=== PATIENT | female | born 1980 | race Caucasian/White ===

== ENCOUNTER 2022-12-31 09:54 | Inpatient (IN) ==
[2022-12-31] MEDS ORDERED: SODIUM CHLORIDE 0.9% 500 ML IV STA (10:59)
--- NOTE | 2022-12-31 11:21 | XRay Report ---
XR chest 1V portable HISTORY: Chest pain, right. hx of lung CA COMPARISON: Chest 10/24/2022. FINDINGS: Decrease in size of the now 3.2 cm right upper lobe mass. No pneumothorax. No pleural effus ions. The heart is normal in size. No new focal lung consolidations to suggest a pneumonia. No eviden ce for pulmonary edema. Right jugular Port-A-Cath terminates in the SVC. IMPRESSION: Decrease in size of the now 3.2 cm right upper lobe mass. Otherwise, no acute process within the ches t. ACT 112: Negative or not required by law. Electronically signed by: Kofi Tafoya M.D. 12/31/2022 11:20 AM
[2022-12-31 11:26] LABS: Basophils # (auto) 0.01 K/uL (0-0.2); Basophils % (auto) 0.5 %; Eosinophils # (auto) 0.01 K/uL (0-0.50); Eosinophils % (auto) 0.5 %; Hematocrit (blood only) 30.4 % (37.0-47.0); Hemoglobin 11.1 g/dl (12.0-16.0); Immature Granulocytes # (auto) 0.01 K/uL (0.01-0.20); Immature Granulocytes % (auto) 0.5 %; Lymphocytes # (auto) 0.27 K/uL (1.2-3.4); Lymphocytes % (auto) 14.5 %; Mean Corpuscular Hemoglobin 35.4 pg (25.0-34.0); Mean Corpuscular Hgb Conc 36.5 g/dL (32.0-36.0); Mean Corpuscular Volume 96.8 fL (80.0-100.0); Mean Platelet Volume 9.5 fL (9.4-12.4); Monocytes # (auto) 0.06 K/uL (0.11-0.59); Monocytes % (auto) 3.2 %; Neutrophils % (auto) 80.8 %; Platelet Count 109 K/uL (130-400); RDW Coefficient of Variation 18.2 % (11.5-14.5); Red Blood Count 3.14 M/uL (4.20-5.40); White Blood Count 1.86 K/ul (4.8-10.8)
[2022-12-31] MEDS ORDERED: ONDANSETRON INJ 2 MG/ML 2 ML VIAL IV STA (11:30)
--- NOTE | 2022-12-31 11:35 | Emergency Department Note ---
Impression & Plan Right-sided chest pain, Primary adenocarcinoma of upper lobe of right lung, Pulmonary embolism ED Provider Note INFORMANT: Patient ED PROVIDER(S): River Villavicencio MD CHIEF COMPLAINT: Chest pain PLAN: Disposition: Admitted Condition: Good Outpatient prescription management: none Referral: None MEDICAL DECISION MAKING: Patient presented with right-sided chest pain. She had a work-up initiated. Chest x-ray was negative except for her right upper lobe mass. CBC revealed the presence of pancytopenia. Her chemistry panel LFTs were unremarkable. Troponin was negative. Patient had a normal ECG. She was treated with Dilaudid and Zofran. She did feel better with this patient is high risk for pulmonary embolism given her history, family history and current malignancy. She underwent CT imaging without D-dimer testing. Patient was found to have a right lower lobe pulmonary embolism. Patient was informed. Heparin was ordered. Consultation was made with the [facility] and patient was evaluated and admitted for further management. 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 Triage Nursing notes reviewed and agree them. Vital Signs: reviewed and remarkable for no significant abnormalities Prior /Outside records reviewed: none Differential diagnosis: Cardiac ischemia, aortic dissection, pulmonary embolism, pneumothorax, pneumonia, pericarditis, myocarditis, esophageal rupture, GERD, cholecystitis, pancreatitis, musculoskeletal, as well as other pathologies. Diagnostics, as interpreted by me: ECG: Twelve-lead ECG was normal sinus rhythm at [address] elevation or depression. No PACs or PVCs. No TWI. Cardiac Monitoring: Cardiac monitoring ordered by me: The patient was placed on continuous cardiac monitoring and observed. It revealed a normal sinus rhythm at 85 beats per minute without ectopy or evidence of dysrhythmia. Medical decision rules: none Imaging studies: Chest x-ray and CT scan as above. HPI: The patient is a 42 year old female who presents to the Emergency Room with complaints of right chest pain. This started this morning and is sharp . The patient also notes the following associated symptoms, feeling feverish and chilled, SOB. The patient has taken no medication for relieving factors. Current pain is rated as 8/10. Hx of lung CA and getting Chemo and radiation. Pt denies LOC, headache, diaphoresis, visual changes, neck pain, nausea, vomiting, abdominal pain, back pain, melena, hematochezia, urinary symptoms, numbness, weakness, lymphadenopathy, rash, or other complaints. PAST MEDICAL HISTORY: See Below, Lung CA, lupus PAST SURGICAL HISTORY: See Below, port SOCIAL HISTORY: See Below, still smoking HOME MEDICATIONS: See Below ALLERGIES: See Below VITALS: See Below PHYSICAL EXAMINATION: GENERAL: Awake, alert, umcomfortable-appearing, in no distress HENT: Normocephalic, atraumatic. Oropharynx unremarkable. EYES: Normal conjunctiva. Sclera non-icteric. NECK: Inspection normal. Non-tender. Supple. No nuchal rigidity. FROM. No masses. RESPIRATORY: Clear to auscultation. No wheezes. No rales. Normal respiratory effort. CARDIAC: Normal rate. Normal rhythm. No murmurs. No rubs. Extremities warm and well perfused. Pulses equal. No JVD. GI: Soft, non-distended. No tenderness to palpation. No rebound or guarding. No masses. RECTAL: Deferred. MUSCULOSKELETAL: Atraumatic. Chest examination reveals mediport in the ANABELLA aspect. The back is symmetrical on inspection without obvious abnormality. There is no CVA tenderness to palpation. No joint edema. LOWER EXTREMITIES: Calves are equal size bilaterally and non-tender. No edema. No discoloration. NEURO: Normal sensorium. No sensory or motor deficits noted. SKIN: No rash or jaundice noted. CRITICAL CARE: I have personally spent greater than 32 minutes of critical care time in the direct management of this patient. This includes bedside care, interpretation of diagnostic studies, and testing, discussion with consultants, patient, and other required patient management activities. These minutes are in excess of all separately billable procedures. Past Med/Surg History Medical History ADHD Asthma Endometriosis of the uterus, unspecified Systemic lupus erythematosus Tobacco abuse Surgical History H/O right wrist surgery H/O tubal ligation H/O: hysterectomy History of cholecystectomy Hx of appendectomy S/P bronchoscopy Family History Mother Cancer Breast Grandmother (Maternal) Cancer Lung Social History Smoking Status: Current every day smoker Tobacco Type: Cigarettes Cigarettes Per Day: has been trying to quit; Second Hand Exposure: Yes; Do You Dip or Chew Tobacco: No; Tobacco Cessation Education Requested by Patient: Yes Hx Alcohol Use: No Hx Substance Use: No Preferred Language: Belarusian Communication Ability: Effective Visual Impairment: No Limitations Hearing Ability: Normal Double End 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 Operator Required: No Beliefs That Will Affect Care: None marital status: Single Current Living Situation: Family Current Living Situation Comment: engaged current occupational status: unemployed 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 Feels Safe at Home: Yes Safety Concerns: Feels Safe At This Time Diet: regular during the past year weight has: remained stable Assistive Devices: Denture - Upper and Oxygen - at Night Allergies Allergies Allergy/AdvReac Type Severity Reaction Status Date / Time levofloxacin [From Levaquin] Allergy Severe THROAT Verified 12/31/22 14:16 SWELLS SHUT, ITCHY Penicillins Allergy Severe Anaphylaxis Verified 12/31/22 14:16 clindamycin Allergy Intermediate Rash Verified 12/31/22 14:16 bupropion [From Wellbutrin] AdvReac Severe suicidal Verified 12/31/22 14:16 ideation ANESTHESIA AdvReac Severe FLAT LINES Uncoded 12/31/22 14:16 PLASTIC AdvReac Severe SKIN PEELS Uncoded 12/31/22 14:16 Home Meds Home Medications Medication Instructions Recorded Confirmed spironolactone 100 mg tablet 200 mg PO BID 09/24/19 12/31/22 (Aldactone) albuterol sulfate 90 mcg/actuation 2 puff inhalation Q4H PRN 09/21/22 12/31/22 aerosol inhaler (Ventolin HFA) COUGH/SOB/WHEEZING fluticasone propionate 230 2 inh inhalation BID 10/24/22 12/31/22 mcg-salmeterol 21 mcg/actuation HFA inhaler (Advair HFA) lorazepam 0.5 mg tablet 0.5 mg PO TID PRN Anxiety 10/24/22 12/31/22 dextroamphetamine-amphetamine 20 See Rx Instructions .Route .COMPLEX 10/29/22 12/31/22 mg tablet (Adderall) ibuprofen 800 mg tablet 800 mg PO TID PRN Pain 10/29/22 12/31/22 oxycodone 5 mg capsule 5 mg PO Q8H PRN Pain 11/25/22 12/31/22 meloxicam 7.5 mg tablet 7.5 mg PO DAILY PRN Muscle Spasm 12/22/22 12/31/22 chlorpromazine 25 mg tablet 25 mg PO Q6H PRN Hiccups 12/31/22 12/31/22 Previous Rx's Medication Instructions Recorded Magic Mouthwash 300 mL mouthwash 10 ml mucous membrane ACHS #300 mL 12/04/22 famotidine 10 mg tablet (Acid 10 mg PO BID #60 tabs 12/10/22 Wash Mill Operator (famotidine)) sucralfate 1 gram tablet (Carafate) 1 g PO Q6H #120 tabs 12/15/22 hydrocodone 10 mg-acetaminophen 15 ml PO Q8H PRN pain #240 mL 12/16/22 325 mg/15 mL (15 mL) oral solution benzonatate 100 mg capsule 100 mg PO TID PRN cough #60 caps 12/22/22 Results & Data (ED) Vital Signs Vital Signs - 24 hr 12/31/22 10:00 12/31/22 10:16 12/31/22 11:20 Temperature 36.5 C Temperature Source Skin Pulse Rate 94 H 92 H 95 H Pulse Rate [Apical] Pulse Rate from SpO2 Sensor Respiratory Rate 24 17 Respiratory Effort / Characteristics Non-Labored Spontaneous Respiratory Depth Normal Respiratory Pattern Regular Blood Pressure 151/89 H 104/75 Blood Pressure [Left Arm] Blood Pressure Mean 109 84 Blood Pressure Mean [Left Arm] Blood Pressure Position [Left Arm] Pulse Oximetry 99 97 Oxygen Delivery Method Room Air Room Air Sepsis New/Unexplained Change in Mental Status N/A Sepsis Action Taken by Nursing No Action Required 12/31/22 11:24 12/31/22 11:26 12/31/22 10:15 Temperature Temperature Source Pulse Rate 95 H Pulse Rate [Apical] Pulse Rate from SpO2 Sensor 95 H Respiratory Rate 13 Respiratory Effort / Characteristics Respiratory Depth Respiratory Pattern Blood Pressure Blood Pressure [Left Arm] Blood Pressure Mean Blood Pressure Mean [Left Arm] Blood Pressure Position [Left Arm] Pulse Oximetry 96 95 Oxygen Delivery Method Room Air Room Air Sepsis New/Unexplained Change in Mental Status Sepsis Action Taken by Nursing 12/31/22 10:30 12/31/22 11:00 12/31/22 11:27 Temperature Temperature Source Pulse Rate 98 H 98 H 88 Pulse Rate [Apical] Pulse Rate from SpO2 Sensor 90 97 H 91 H Respiratory Rate 14 10 L 21 Respiratory Effort / Characteristics Respiratory Depth Respiratory Pattern Blood Pressure Blood Pressure [Left Arm] Blood Pressure Mean Blood Pressure Mean [Left Arm] Blood Pressure Position [Left Arm] Pulse Oximetry 98 96 97 Oxygen Delivery Method Sepsis New/Unexplained Change in Mental Status Sepsis Action Taken by Nursing 12/31/22 11:27 12/31/22 11:30 12/31/22 11:30 Temperature Temperature Source Pulse Rate 80 Pulse Rate [Apical] Pulse Rate from SpO2 Sensor 88 Respiratory Rate 16 Respiratory Effort / Characteristics Respiratory Depth Respiratory Pattern Blood Pressure 105/87 113/83 Blood Pressure [Left Arm] Blood Pressure Mean 96 88 Blood Pressure Mean [Left Arm] Blood Pressure Position [Left Arm] Pulse Oximetry 95 Oxygen Delivery Method Sepsis New/Unexplained Change in Mental Status Sepsis Action Taken by Nursing 12/31/22 12:00 12/31/22 12:00 12/31/22 12:48 Temperature Temperature Source Pulse Rate 83 Pulse Rate [Apical] 88 Pulse Rate from SpO2 Sensor 81 Respiratory Rate 17 14 Respiratory Effort / Characteristics Non-Labored Spontaneous Respiratory Depth Normal Respiratory Pattern Regular Blood Pressure 116/85 Blood Pressure [Left Arm] 108/72 Blood Pressure Mean 95 Blood Pressure Mean [Left Arm] 84 Blood Pressure Position [Left Arm] Semi-fowlers Pulse Oximetry 96 95 Oxygen Delivery Method Room Air Sepsis New/Unexplained Change in Mental Status Sepsis Action Taken by Nursing Laboratory Data 12/31/22 10:40 12/31/22 10:40 Lab Results 12/31/22 12/31/22 12/31/22 Range/Units 10:40 10:40 14:00 WBC 1.86 L (4.8-10.8) K/ul RBC 3.14 L (4.20-5.40) M/uL Hgb 11.1 L (12.0-16.0) g/dl Hct 30.4 L (37.0-47.0) % MCV 96.8 (80.0-100.0) fL MCH 35.4 H (25.0-34.0) pg MCHC 36.5 H (32.0-36.0) g/dL RDW Std Deviation 61.0 H (36.4-46.3) fL RDW Coeff of Saritha 18.2 H (11.5-14.5) % Plt Count 109 L (130-400) K/uL MPV 9.5 (9.4-12.4) fL Immature Gran % (Auto) 0.5 % Neut % (Auto) 80.8 % Lymph % (Auto) 14.5 % [place] % (Auto) 3.2 % Eos % (Auto) 0.5 % Baso % (Auto) 0.5 % Neut # (Auto) 1.50 (1.40-6.50) K/uL Lymph # (Auto) 0.27 L (1.2-3.4) K/uL [place] # (Auto) 0.06 L (0.11-0.59) K/uL Eos # (Auto) 0.01 (0-0.50) K/uL Baso # (Auto) 0.01 (0-0.2) K/uL Immature Gran # (Auto) 0.01 (0.01-0.20) K/uL PT 10.0 (9.0-12.0) Seconds INR 0.9 (0.9-1.1) APTT 23.5 (21.0-31.0) Seconds PTT Ratio 0.8 Sodium 137 (136-145) mmol/L Potassium 4.1 (3.5-5.1) mmol/L Chloride 107 (98-107) mmol/L Carbon Dioxide 25 (21-32) mmol/L Anion Gap 5 (3-11) BUN 17 (6-23) mg/dl Creatinine 0.79 (0.6-1.2) mg/dl Est Cr Clr Drug Dosing 100.7 ml/min Est GFR ( Amer) 105.5 ml/min Est GFR (Non-Af Amer) 91.0 ml/min BUN/Creatinine Ratio 21.5 H (10-20) Glucose 122 H (70-99(Fasting)) mg/dl Calcium 9.0 (8.6-10.3) mg/dl Total Bilirubin 0.6 (0.2-1.0) mg/dl AST 12 L (13-39) U/L ALT 12 (7-52) U/L Alkaline Phosphatase 98 (34-104) U/L Troponin I High Sens < 2.3 (0-14) pg/ml Total Protein 6.7 (6.0-8.3) gm/dl Albumin 3.7 (3.4-5.0) gm/dl Globulin 3.0 (2.5-4.0) gm/dl Albumin/Globulin Ratio 1.2 (0.9-2) Lipase 21 (11-82) U/L SARS-CoV-2, RNA, NAAT (NEGATIVE) 12/31/22 Range/Units 14:07 WBC (4.8-10.8) K/ul RBC (4.20-5.40) M/uL Hgb (12.0-16.0) g/dl Hct (37.0-47.0) % MCV (80.0-100.0) fL MCH (25.0-34.0) pg MCHC (32.0-36.0) g/dL RDW Std Deviation (36.4-46.3) fL RDW Coeff of Saritha (11.5-14.5) % Plt Count (130-400) K/uL MPV (9.4-12.4) fL Immature Gran % (Auto) % Neut % (Auto) % Lymph % (Auto) % [place] % (Auto) % Eos % (Auto) % Baso % (Auto) % Neut # (Auto) (1.40-6.50) K/uL Lymph # (Auto) (1.2-3.4) K/uL [place] # (Auto) (0.11-0.59) K/uL Eos # (Auto) (0-0.50) K/uL Baso # (Auto) (0-0.2) K/uL Immature Gran # (Auto) (0.01-0.20) K/uL PT (9.0-12.0) Seconds INR (0.9-1.1) APTT (21.0-31.0) Seconds PTT Ratio Sodium (136-145) mmol/L Potassium (3.5-5.1) mmol/L Chloride (98-107) mmol/L Carbon Dioxide (21-32) mmol/L Anion Gap (3-11) BUN (6-23) mg/dl Creatinine (0.6-1.2) mg/dl Est Cr Clr Drug Dosing ml/min Est GFR ( Amer) ml/min Est GFR (Non-Af Amer) ml/min BUN/Creatinine Ratio (10-20) Glucose (70-99(Fasting)) mg/dl Calcium (8.6-10.3) mg/dl Total Bilirubin (0.2-1.0) mg/dl AST (13-39) U/L ALT (7-52) U/L Alkaline Phosphatase (34-104) U/L Troponin I High Sens (0-14) pg/ml Total Protein (6.0-8.3) gm/dl Albumin (3.4-5.0) gm/dl Globulin (2.5-4.0) gm/dl Albumin/Globulin Ratio (0.9-2) Lipase (11-82) U/L SARS-CoV-2, RNA, NAAT NEGATIVE (NEGATIVE) Administered Medications Fluticasone/Vilanterol (Fluticasone/Vilanterol 200/25mcg 14 Puffs/Inhaler) 1 puffs INH DAILY [facility]; Protocol Stop: 01/30/23 16:59 Last Admin: 12/31/22 18:10 Dose: 1 puffs Documented By: BILLY Heparin Sodium/Dextrose (Heparin Sodium/Dextrose) 25,000 units in 500 mls @ 17 mls/hr IV .Q24H [facility]; Protocol Stop: 01/30/23 14:14 Last Admin: 12/31/22 15:08 Dose: 850 units/hr, 17 mls/hr Documented By: JESU Co-signed By: LIZ Spironolactone (Spironolactone 100 Mg Tab) 200 mg PO BID17 [facility] Stop: 01/30/23 16:59 Last Admin: 12/31/22 18:10 Dose: 200 mg Documented By: BILLY Sucralfate (Sucralfate 1 Gm Tab) 1 gm PO Q6H [facility] Stop: 01/30/23 16:59 Last Admin: 12/31/22 18:10 Dose: 1 gm Documented By: BILLY Discontinued Medications Heparin Sodium (Porcine) (Heparin Sod (Porcine) 1000 Unit/Ml) 4,000 units IV NOW ONE Stop: 12/31/22 14:31 Last Admin: 12/31/22 15:07 Dose: 4,000 units Documented By: JESU Co-signed By: LIZ Hydromorphone HCl (Hydromorphone Inj 0.5 Mg/0.5 Ml Syr) 0.5 mg IV Q15M PRN PRN Reason: Pain Stop: 01/14/23 11:29 Last Admin: 12/31/22 15:24 Dose: 0.5 mg Documented By: Admin: 12/31/22 13:52 Dose: 0.5 mg Documented By: Admin: 12/31/22 11:36 Dose: 0.5 mg Documented By: JESU Sodium Chloride (Nss) 500 mls @ 999 mls/hr IV .Q31M STA Stop: 12/31/22 11:29 Last Infusion: 12/31/22 12:25 Dose: 0 mls/hr Documented By: Admin: 12/31/22 11:38 Dose: 999 mls/hr Documented By: JESU Ioversol (Optiray 320 125ml) 119 ml IV ONCE ONE Stop: 12/31/22 12:36 Last Admin: 12/31/22 12:35 Dose: 119 ml Documented By: ALISA Ondansetron HCl (Ondansetron Inj 2 Mg/Ml 2 Ml Vial) 4 mg IV NOW STA Stop: 12/31/22 11:31 Last Admin: 12/31/22 11:36 Dose: 4 mg Documented By: JESU Oxycodone HCl (Oxycodone Hcl Ir 5 Mg Tab (Immediate Release)) 5 mg PO Q8H PRN PRN Reason: Pain Stop: 01/14/23 16:48 Last Admin: 12/31/22 17:14 Dose: 5 mg Documented By: MP Imaging Data Radiologist's Impression: Chest X-Ray 12/31/22 10:59 XR chest 1V portable HISTORY: Chest pain, right. hx of lung CA COMPARISON: Chest 10/24/2022. FINDINGS: Decrease in size of the now 3.2 cm right upper lobe mass. No pneumothorax. No pleural effusions. The heart is normal in size. No new focal lung consolidations to suggest a pneumonia. No evidence for pulmonary edema. Right jugular Port-A-Cath terminates in the SVC. IMPRESSION: Decrease in size of the now 3.2 cm right upper lobe mass. Otherwise, no acute process within the chest. ACT 112: Negative or not required by law. Electronically signed by: Kofi Tafoya M.D. 12/31/2022 11:20 AM Chest CTA 12/31/22 11:30 CHEST CTA for PULMONARY ARTERIES CT DOSE: HISTORY: RIght chest pain, hx of CA, ?PE TECHNIQUE: Multiaxial CT images of the chest were performed following the intravenous administration of contrast to evaluate the pulmonary arteries. Maximal intensity projection images were also obtained. A dose lowering technique was utilized adhering to the principles of ALARA. COMPARISON STUDY: Chest CTA 10/24/2022. FINDINGS: Normal caliber thoracic aorta with no evidence for a dissection. Filling defects noted within the right lateral basal subsegmental pulmonary arteries consistent with right lower lobe pulmonary emboli. The main pulmonary arteries are patent. No evidence for right-sided heart strain. The heart is normal in size. No pleural or pericardial effusions. Mild circumferential thic kening within the upper esophagus. Slight decrease in size in the right paratracheal and right hilar lymphadenopathy. The right paratracheal lymphadenopathy appears partially necrotic. This could be due to posttreatment changes. No new/progressive lymphadenopathy within the chest. Limited views of t he upper abdomen demonstrate a normal liver, spleen, and adrenal glands. Right jugular Port-A-Cath terminates in the distal SVC. No suspicious lytic or blastic osseous lesions. Mild emphysema. No pneumothorax. The central airways are patent. No new focal lung consolidations to suggest a pneumonia. No evidence for pulmonary edema. Slight decrease in size in the now 3 cm spiculated right upper lobe mass. IMPRESSION: 1. Right lower lobe subsegmental pulmonary emboli. 2. Slight improvement in the spiculated right upper lobe mass and right paratracheal/hilar lymphadenopathy. 3. Mild emphysema. ACT 112: Negative or not required by law. Electronically signed by: Kofi Tafoya M.D. 12/31/2022 1:26 PM Discharge Plan Visit Data Chief Complaint: Shortness of Breath/Dyspnea Stated Complaint: SOB, PAIN WITH SOB,DIZZY ED Provider: River Villavicencio Discharge Problem: Right-sided chest pain, Primary adenocarcinoma of upper lobe of right lung, Pulmonary embolism Patient Disposition: Admitted As Inpatient Discharge Instructions Interventions: ED Discharge Assessment Last Done: 12/31/22 16:32
[2022-12-31] MEDS: HYDROmorphone INJ 0.5 MG/0.5 ML SYR IV PRN ×4 (11:36→20:42)
[2022-12-31 11:42] LABS: Alanine Aminotransferase 12 U/L (7-52); Albumin Globulin Ratio 1.2 (0.9-2); Albumin Level 3.7 gm/dl (3.4-5.0); Alkaline Phosphatase 98 U/L (34-104); Anion Gap 5 (3-11); Aspartate Aminotransferase 12 U/L (13-39); BUN Creatinine Ratio 21.5 (10-20); Bilirubin,Total 0.6 mg/dl (0.2-1.0); Blood Urea Nitrogen 17 mg/dl (6-23); Carbon Dioxide 25 mmol/L (21-32); Chloride 107 mmol/L (98-107); Creatinine Clr Calc Pharmacy 100.7 ml/min; Est GFR (African American) 105.5 ml/min; Glucose 122 mg/dl (70-99(Fasting)); Lipase 21 U/L (11-82); Potassium 4.1 mmol/L (3.5-5.1); Sodium 137 mmol/L (136-145); Total Protein 6.7 gm/dl (6.0-8.3)
[2022-12-31 11:46] LABS: Troponin I High Sensitivity < 2.3 pg/ml (0-14)
[2022-12-31] MEDS ORDERED: OPTIRAY 320 125ml IV ONE (12:35)
--- NOTE | 2022-12-31 13:28 | CT Scan Report ---
CHEST CTA for PULMONARY ARTERIES CT DOSE: HISTORY: RIght chest pain, hx of CA, ?PE TECHNIQUE: Multiaxial CT images of the chest were performed following the intravenous administration of contrast to evaluate the pulmonary arteries. Maximal intensity projection images were also obtaine d. A dose lowering technique was utilized adhering to the principles of ALARA. COMPARISON STUDY: Chest CTA 10/24/2022. FINDINGS: Normal caliber thoracic aorta with no evidence for a dissection. Filling defects noted with in the right lateral basal subsegmental pulmonary arteries consistent with right lower lobe pulmonary emboli. The main pulmonary arteries are patent. No evidence for right-sided heart strain. The heart is normal in size. No pleural or pericardial effusions. Mild circumferential thickening within the up per esophagus. Slight decrease in size in the right paratracheal and right hilar lymphadenopathy. The right paratracheal lymphadenopathy appears partially necrotic. This could be due to posttreatment ch anges. No new/progressive lymphadenopathy within the chest. Limited views of the upper abdomen demons trate a normal liver, spleen, and adrenal glands. Right jugular Port-A-Cath terminates in the distal SVC. No suspicious lytic or blastic osseous lesions. Mild emphysema. No pneumothorax. The central air ways are patent. No new focal lung consolidations to suggest a pneumonia. No evidence for pulmonary e marce. Slight decrease in size in the now 3 cm spiculated right upper lobe mass. IMPRESSION: 1. Right lower lobe subsegmental pulmonary emboli. 2. Slight improvement in the spiculated right upper lobe mass and right paratracheal/hilar lymphadeno sebastian. 3. Mild emphysema. ACT 112: Negative or not required by law. Electronically signed by: Kofi Tafoya M.D. 12/31/2022 1:26 PM
[2022-12-31] MEDS ORDERED: Heparin IV Adult Wt-Based Low-Dose WITH Bolus Protocol IV STA (13:49)
[2022-12-31] MEDS ORDERED: HEPARIN SOD (PORCINE) 1000 UNIT/ML IV ONE ×3 (14:04→23:00)
--- NOTE | 2022-12-31 14:06 | History & Physical Report ---
Date of Service December 31, 2022 Assessment & Plan (1) Right-sided chest pain: (2) Pulmonary embolism: (3) Primary adenocarcinoma of upper lobe of right lung: Plan This is a 42-year-old female who has a significant past medical history of lupus, bipolar disorder, ADHD, fibromyalgia, Raynaud's disease, pseudocholinesterase deficiency, PCOS and primary adenocarcinoma of right lung who presents to ED secondary to right-sided chest pain. Right sided chest pain Pulmonary Embolism - right lower lobe admit to PCU ---chest CTA:1. Right lower lobe subsegmental pulmonary emboli.2. Slight improvement in the spiculated right upper lobe mass and right paratracheal/hilar lymphadenopathy.3. Mild emphysema. Continue IV heparin obtain echocardiogram monitor cbc, can consider transition to lovenox or oral anticoagulation in a.m. incentive spirometry oxycodone for pain, will add morphine for severe pain Dysphagia CT shows mild thickening of upper esophagus possibly related to radiation pt on cocktail of magic swizzle, carafate, pepcid and thorazine will consult speech for swallow eval Primary [place] of [facility] follows Dr. Charlton or heme/onc and Dr. Chaka Charlton of Rad/onc on pac/carbo, last tx 12/21 Pancytopenia related to chemotherapy follow cbc, monitor plt Constipation add Senna S BID, encourage fluid DVT ppx: IV Heparin Dispo tele PCP: Lou FULL CODE Pt was seen and examined in collaboration with Dr. Fontaine, please see addendum A total of 75 was spent coordinating, documenting, and providing care for this patient excluding time spent in the performance of separately billed services. This included personally viewing all current laboratories and imaging studies, medication reconciliation, outpatient chart review, and discussion with specialists. The chart was completed utilizing [employer] Speech voice recognition software. Grammatical errors, random word insertions, pronoun errors, and incomplete sentences are an occasional consequence of this system due to software limitations, ambient noise, and hardware issues. Any formal questions or concerns about the content, text, or information contained within the body of this dictation should be directly addressed to the provider for clarification. History of Present Illness Chief Complaint: R sided chest pain. Primary Care Provider: Josue Blake MD This is a 42-year-old female who has a significant past medical history of lupus, bipolar disorder, ADHD, fibromyalgia, Raynaud's disease, pseudocholinesterase deficiency, PCOS and primary adenocarcinoma of right lung who presents to ED secondary to right-sided chest pain. She follows [facility] oncology. She is currently receiving chemo and radiation treatment. She is receiving weekly paclitaxel which started on 11/19/2022. She is also on carboplatin. Her last treatment was on 12/23/2022. She is getting radiation through 01/16. She also has lupus but has not been on medication for over 1 year. She smokes daily, 4 cigarettes. She has been cutting down. She did smoke 1.5ppd and down to 4 cigarettes. She complains of right sided chest pain that is stabbing to her back. She also complains of dizziness and shortness of breath. She did have a fever last night. Denies calf pain and leg swelling. On Thursday she had nausea and vomiting but this has since resolved. She is chronically constipated. She uses sennokot for this. Her Last BM was over the weekend. She denies any bleeding problems. She does complain of daily nose bleeds, "clots in nose." When she blows nose she gets bright red clots. She also complains of di fficulty swallowing solids/liquids and she is concerned in may be related to radiation. They tried thorazine which is helping with hiccups. Surgical hx: Hx of cholecystectomy, hysterectomy, appendectomy, oopherectomy, hand surgery. Allergies Allergy/AdvReac Type Severity Reaction Status Date / Time levofloxacin [From Levaquin] Allergy Severe THROAT Verified 12/31/22 14:16 SWELLS SHUT, ITCHY Penicillins Allergy Severe Anaphylaxis Verified 12/31/22 14:16 clindamycin Allergy Intermediate Rash Verified 12/31/22 14:16 bupropion [From Wellbutrin] AdvReac Severe suicidal Verified 12/31/22 14:16 ideation ANESTHESIA AdvReac Severe FLAT LINES Uncoded 12/31/22 14:16 PLASTIC AdvReac Severe SKIN PEELS Uncoded 12/31/22 14:16 Home Medications Medication Instructions Recorded Confirmed Type spironolactone 100 mg tablet 200 mg PO BID 09/24/19 12/31/22 History (Aldactone) albuterol sulfate 90 mcg/actuation 2 puff inhalation Q4H PRN 09/21/22 12/31/22 History aerosol inhaler (Ventolin HFA) COUGH/SOB/WHEEZING fluticasone propionate 230 2 inh inhalation BID 10/24/22 12/31/22 History mcg-salmeterol 21 mcg/actuation HFA inhaler (Advair HFA) lorazepam 0.5 mg tablet 0.5 mg PO TID PRN Anxiety 10/24/22 12/31/22 History dextroamphetamine-amphetamine 20 See Rx Instructions .Route .COMPLEX 10/29/22 12/31/22 History mg tablet (Adderall) ibuprofen 800 mg tablet 800 mg PO TID PRN Pain 10/29/22 12/31/22 History oxycodone 5 mg capsule 5 mg PO Q8H PRN Pain 11/25/22 12/31/22 History Magic Mouthwash 300 mL mouthwash 10 ml mucous membrane ACHS #300 mL 12/04/22 12/31/22 Rx famotidine 10 mg tablet (Acid 10 mg PO BID #60 tabs 12/10/22 12/31/22 Rx Supervisor Plasma (famotidine)) sucralfate 1 gram tablet (Carafate) 1 g PO Q6H #120 tabs 12/15/22 12/31/22 Rx hydrocodone 10 mg-acetaminophen 15 ml PO Q8H PRN pain #240 mL 12/16/22 12/31/22 Rx 325 mg/15 mL (15 mL) oral solution benzonatate 100 mg capsule 100 mg PO TID PRN cough #60 caps 12/22/22 12/31/22 Rx meloxicam 7.5 mg tablet 7.5 mg PO DAILY PRN Muscle Spasm 12/22/22 12/31/22 History chlorpromazine 25 mg tablet 25 mg PO Q6H PRN Hiccups 12/31/22 12/31/22 History Past Med/Surg History Medical History ADHD Asthma Endometriosis of the uterus, unspecified Systemic lupus erythematosus Tobacco abuse Surgical History H/O right wrist surgery H/O tubal ligation H/O: hysterectomy History of cholecystectomy Hx of appendectomy S/P bronchoscopy Family History Mother Cancer Breast Grandmother (Maternal) Cancer Lung Social History Smoking Status: Current every day smoker Tobacco Type: Cigarettes Cigarettes Per Day: has been trying to quit; Second Hand Exposure: Yes; Hx Alcohol Use: No Hx Substance Use: No Preferred Language: [place] Communication Ability: Effective Visual Impairment: No Limitations Hearing Ability: Normal Beliefs That Will Affect Care: None marital status: Single Current Living Situation: Significant Other Current Living Situation Comment: engaged current occupational status: unemployed 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 Fontaine, addendum for physical exam findings. Results & Data Results & Data Vital Signs (Past 12 Hours) Vital Signs Temp Pulse Pulse Resp BP BP Pulse Ox 12/31/22 12:48 88 14 108/72 95 12/31/22 12:00 83 17 96 12/31/22 12:00 116/85 12/31/22 11:30 80 16 95 12/31/22 11:30 113/83 12/31/22 11:27 105/87 12/31/22 11:27 88 21 97 12/31/22 11:00 98 H 10 L 96 12/31/22 10:30 98 H 14 98 12/31/22 10:15 95 H 13 95 12/31/22 11:26 12/31/22 11:24 96 12/31/22 11:20 95 H 17 104/75 97 12/31/22 10:16 92 H 12/31/22 10:00 36.5 C 94 H 24 151/89 H 99 O2 Del Method 12/31/22 12:48 Room Air 12/31/22 12:00 12/31/22 12:00 12/31/22 11:30 12/31/22 11:30 12/31/22 11:27 12/31/22 11:27 12/31/22 11:00 12/31/22 10:30 12/31/22 10:15 12/31/22 11:26 Room Air 12/31/22 11:24 Room Air 12/31/22 11:20 Room Air 12/31/22 10:16 12/31/22 10:00 Room Air Diagnostic Findings Chest X-Ray 12/31/22 10:59 XR chest 1V portable HISTORY: Chest pain, right. hx of lung CA COMPARISON: Chest 10/24/2022. FINDINGS: Decrease in size of the now 3.2 cm right upper lobe mass. No pneumothorax. No pleural effusions. The heart is normal in size. No new focal lung consolidations to suggest a pneumonia. No evidence for pulmonary edema. Right jugular Port-A-Cath terminates in the SVC. IMPRESSION: Decrease in size of the now 3.2 cm right upper lobe mass. Otherwise, no acute process within the chest. ACT 112: Negative or not required by law. Electronically signed by: Kofi Tafoya M.D. 12/31/2022 11:20 AM Chest CTA 12/31/22 11:30 CHEST CTA for PULMONARY ARTERIES CT DOSE: HISTORY: RIght chest pain, hx of CA, ?PE TECHNIQUE: Multiaxial CT images of the chest were performed following the intravenous administration of contrast to evaluate the pulmonary arteries. Maximal intensity projection images were also obtained. A dose lowering technique was utilized adhering to the principles of ALARA. COMPARISON STUDY: Chest CTA 10/24/2022. FINDINGS: Normal caliber thoracic aorta with no evidence for a dissection. Filling defects noted within the right lateral basal subsegmental pulmonary arteries consistent with right lower lobe pulmonary emboli. The main pulmonary arteries are patent. No evidence for right-sided heart strain. The heart is normal in size. No pleural or pericardial effusions. Mild circumferential thickening within the upper esophagus. Slight decrease in size in the right paratracheal and right hilar lymphadenopathy. The right paratracheal lymphadenopathy appears partially necrotic. This could be due to posttreatment changes. No new/progressive lymphadenopathy within the chest. Limited views of the upper abdomen demonstrate a normal liver, spleen, and adrenal glands. Right jugular Port-A-Cath terminates in the distal SVC. No suspicious lytic or blastic osseous lesions. Mild emphysema. No pneumothorax. The central airways are patent. No new focal lung consolidations to suggest a pneumonia. No evidence for pulmonary edema. Slight decrease in size in the now 3 cm spiculated right upper lobe mass. IMPRESSION: 1. Right lower lobe subsegmental pulmonary emboli. 2. Slight improvement in the spiculated right upper lobe mass and right paratracheal/hilar lymphadenopathy. 3. Mild emphysema. ACT 112: Negative or not required by law. Electronically signed by: Kofi Tafoya M.D. 12/31/2022 1:26 PM Medications Administered Medication List Hydromorphone HCl (Hydromorphone Inj 0.5 Mg/0.5 Ml Syr) 0.5 mg IV Q15M PRN PRN Reason: Pain Stop: 01/14/23 11:29 Last Admin: 12/31/22 13:52 Dose: 0.5 mg Documented By: Admin: 12/31/22 11:36 Dose: 0.5 mg Documented By: JESU Discontinued Medications Sodium Chloride (Nss) 500 mls @ 999 mls/hr IV .Q31M STA Stop: 12/31/22 11:29 Last Infusion: 12/31/22 12:25 Dose: 0 mls/hr Documented By: Admin: 12/31/22 11:38 Dose: 999 mls/hr Documented By: JESU Ioversol (Optiray 320 125ml) 119 ml IV ONCE ONE Stop: 12/31/22 12:36 Last Admin: 12/31/22 12:35 Dose: 119 ml Documented By: ALISA Ondansetron HCl (Ondansetron Inj 2 Mg/Ml 2 Ml Vial) 4 mg IV NOW STA Stop: 12/31/22 11:31 Last Admin: 12/31/22 11:36 Dose: 4 mg Documented By: JESU ECG Rate (beats per minute): 92 Rhythm: normal sinus Additional Comments: qtc 447ms, viewed by me COVID-19 Results Results COVID-19 Adm Lab Results: RBC 3.14 M/uL (4.20-5.40) L 12/31/22 WBC 1.86 K/ul (4.8-10.8) L 12/31/22 Hgb 11.1 g/dl (12.0-16.0) L 12/31/22 Hct 30.4 % (37.0-47.0) L 12/31/22 Plt Count 109 K/uL (130-400) L 12/31/22 Neutrophils (%) (Auto) 80.8 % 12/31/22 Lymphocytes (%) (Auto) 14.5 % 12/31/22 Monocytes # (Auto) 0.06 K/uL (0.11-0.59) L 12/31/22 Eosinophils # (Auto) 0.01 K/uL (0-0.50) 12/31/22 Immature Granulocyte % (Auto) 0.5 % 12/31/22 Neutrophils # (Auto) 1.50 K/uL (1.40-6.50) 12/31/22 Lymphocytes # (Auto) 0.27 K/uL (1.2-3.4) L 12/31/22 Monocytes # (Auto) 0.06 K/uL (0.11-0.59) L 12/31/22 Eosinophils # (Auto) 0.01 K/uL (0-0.50) 12/31/22 Basophils # (Auto) 0.01 K/uL (0-0.2) 12/31/22 Immature Granulocyte # (Auto) 0.01 K/uL (0.01-0.20) 3 Na 137 mmol/L (136-145) 12/31/22 K 4.1 mmol/L (3.5-5.1) 12/31/22 Cl 107 mmol/L (98-107) 12/31/22 CO2 25 mmol/L (21-32) 12/31/22 Anion Gap 5 (3-11) 12/31/22 BUN 17 mg/dl (6-23) 12/31/22 Creatinine 0.79 mg/dl (0.6-1.2) 12/31/22 BUN/Creatinine Ratio 21.5 (10-20) H 12/31/22 Glucose Level 122 mg/dl (70-99(Fasting)) H 12/31/22 Ca 9.0 mg/dl (8.6-10.3) 12/31/22 Total Bilirubin 0.6 mg/dl (0.2-1.0) 12/31/22 AST/SGOT 12 U/L (13-39) L 12/31/22 ALT/SGPT 12 U/L (7-52) 12/31/22 Alkaline Phosphatase 98 U/L (34-104) 12/31/22 Total Protein 6.7 gm/dl (6.0-8.3) 12/31/22 Albumin 3.7 gm/dl (3.4-5.0) 12/31/22 Globulin 3.0 gm/dl (2.5-4.0) 12/31/22 Albumin/Globulin Ratio 1.2 (0.9-2) 12/31/22 PTT 23.5 Seconds (21.0-31.0) 12/31/22 INR 0.9 (0.9-1.1) 12/31/22 SARS-CoV-2, RNA, NAAT NEGATIVE (NEGATIVE) 12/31/22 Chest X-Ray 12/31/22 Code Status & VTE Plan Code Status FULL CODE Supervising Physician Co-Signing Physician Notes Patient is a 42-year-old female with history of lupus, fibromyalgia, lung adenocarcinoma who is currently on chemotherapy, radiation and other medical problems presents with history of right-sided pleuritic, stabbing chest pain associated with some dyspnea on exertion and dizziness. Also admits to have fever last night. She also reports having dysphagia predominantly to solids which she attributes to radiation therapy. Please review HPI for complete details of presentation. Patient is saturating well on room air. CTA chest suggestive of right lower lobe subsegmental pulmonary emboli. Physical Exam: Vitals signs as noted above General Appearance:Obese, no apparent distress Head: normocephalic, Atraumatic Eyes: normal inspection, EOMI Neck: supple, Trachea midline Respiratory/Chest: Decreased breath sounds, CTA, No accessory muscle use Cardiovascular: S1, S2, No murmur Abdomen/GI:Soft, Non tender, Bowel sounds present Extremities/Musculoskeletal:normal inspection, no edema Neurologic/Psych:AAOX3, grossly no focal neurological deficits Skin: normal color, warm Acute pulmonary emboli Pleuritic pain secondary to above Pancytopenia secondary to chemotherapy Dysphagia likely secondary to radiation therapy Chronic respiratory failure--on supplemental oxygen 2 L at bedtime Agree with continuing IV heparin Continue supplemental oxygen at bedtime Incentive spirometer Check echo Speech therapy consulted Monitor CBC Bowel regimen to prevent constipation I personally reviewed the record. Patient is interviewed and examined at bedside. Patient's care is coordinated with Megha Griffiths PA-C. Please refer to the documentation above for details of patient's presentation and for discussion of other issues.
[2022-12-31] MEDS ORDERED: HEPARIN SODIUM/DEXTROSE 25,000 UNITS/500 ML BAG IV SCH (14:15)
[2022-12-31 14:59] LABS: INR 0.9 (0.9-1.1); Partial Thromboplastin Ratio 0.8; Partial Thromboplastin Time 23.5 Seconds (21.0-31.0)
[2022-12-31] MEDS ORDERED: MAGNESIUM HYDROXIDE SUSP 30 ML UDC PO PRN (16:37)
[2022-12-31] MEDS ORDERED: ALBUTEROL HFA 8 GM INHALER INH PRN (16:37)
[2022-12-31] MEDS ORDERED: ALUMINUM/MAGNESIUM SUSP 30 ML UDC PO PRN (16:37)
[2022-12-31] MEDS ORDERED: POLYETHYLENE (MIRALAX) 17 GM PACK PO PRN (16:37)
[2022-12-31] MEDS ORDERED: ACETAMINOPHEN 325 MG TAB PO PRN (16:37)
[2022-12-31] MEDS ORDERED: oxyCODONE HCL IR 5 MG TAB (IMMEDIATE RELEASE) PO PRN ×3 (16:49→18:46)
[2022-12-31] MEDS: SUCRALFATE 1 GM TAB PO SCH ×2 (18:10→22:58)
[2022-12-31] MEDS: FLUTICASONE/VILANTEROL 200/25MCG 14 PUFFS/INHALER INH SCH (18:10)
[2022-12-31] MEDS: SPIRONOLACTONE 100 MG TAB PO SCH (18:10)
[2022-12-31] MEDS ORDERED: ACETAMINOPHEN/HYDROcodone ELIX 15 ML/CUP PO PRN ×2 (18:47→18:49)
[2022-12-31] MEDS: NON-FORMULARY MEDICATION (Magic Mouthwash 300 mL mouthwash) mucous membrane SCH ×2 (19:21→23:00)
[2022-12-31] MEDS: LORazepam 0.5 MG TAB PO PRN (20:21)
[2022-12-31] MEDS: NICOTINE 14 MG/24 HR PATCH TD SCH ×2 (20:22→20:48)
[2022-12-31] MEDS: FAMOTIDINE 10 MG TABLET PO SCH (20:45)
[2022-12-31] MEDS: DOCUSATE SODIUM/SENNA 50/8.6MG TAB PO SCH (20:45)
[2022-12-31 22:21] LABS: Partial Thromboplastin Time 28.3 Seconds (21.0-31.0)
[2022-12-31] MEDS: chlorproMAZINE HCL 25 MG TAB PO PRN (22:58)
[2022-12-31] MEDS: MAGIC MOUTHWASH PO SCH ×2 (23:27→23:33)
[2023-01-01] MEDS: oxyCODONE HCL IR 5 MG TAB (IMMEDIATE RELEASE) PO PRN ×3 (01:22→20:21)
[2023-01-01] MEDS: HYDROmorphone INJ 0.5 MG/0.5 ML SYR IV PRN ×4 (03:00→21:13)
[2023-01-01] MEDS: SUCRALFATE 1 GM TAB PO SCH ×4 (05:42→22:57)
[2023-01-01 06:24] LABS: Eosinophils # (auto) 0.01 K/uL (0-0.50); Eosinophils % (auto) 0.5 %; Hematocrit (blood only) 26.7 % (37.0-47.0); Hemoglobin 9.8 g/dl (12.0-16.0); Immature Granulocytes # (auto) 0.01 K/uL (0.01-0.20); Immature Granulocytes % (auto) 0.5 %; Lymphocytes % (auto) 23.4 %; Mean Corpuscular Hemoglobin 35.6 pg (25.0-34.0); Mean Corpuscular Hgb Conc 36.7 g/dL (32.0-36.0); Mean Corpuscular Volume 97.1 fL (80.0-100.0); Mean Platelet Volume 9.8 fL (9.4-12.4); Monocytes # (auto) 0.15 K/uL (0.11-0.59); Neutrophils # (auto) 1.47 K/uL (1.40-6.50); Neutrophils % (auto) 68.6 %; Platelet Count 118 K/uL (130-400); RDW Coefficient of Variation 17.7 % (11.5-14.5); RDW Standard Deviation 59.4 fL (36.4-46.3); Red Blood Count 2.75 M/uL (4.20-5.40); White Blood Count 2.14 K/ul (4.8-10.8)
[2023-01-01 06:56] LABS: Albumin Globulin Ratio 1.3 (0.9-2); Albumin Level 3.4 gm/dl (3.4-5.0); BUN Creatinine Ratio 21.1 (10-20); Bilirubin,Total 0.5 mg/dl (0.2-1.0); Calcium 8.8 mg/dl (8.6-10.3); Creatinine Clr Calc Pharmacy 113.7 ml/min; Est GFR (African American) 120.1 ml/min; Est GFR (Non-African American) 103.6 ml/min; Globulin 2.7 gm/dl (2.5-4.0); Magnesium 1.9 mg/dl (1.7-2.4); Potassium 3.8 mmol/L (3.5-5.1); Total Protein 6.1 gm/dl (6.0-8.3)
[2023-01-01 07:06] LABS: Partial Thromboplastin Ratio 1.3; Partial Thromboplastin Time 35.4 Seconds (21.0-31.0)
[2023-01-01] MEDS: LORazepam 0.5 MG TAB PO PRN ×3 (07:31→21:13)
[2023-01-01] MEDS: DOCUSATE SODIUM/SENNA 50/8.6MG TAB PO SCH ×3 (07:33→20:22)
[2023-01-01] MEDS: SPIRONOLACTONE 100 MG TAB PO SCH ×2 (07:34→16:56)
[2023-01-01] MEDS: FAMOTIDINE 10 MG TABLET PO SCH ×2 (07:34→16:03)
[2023-01-01] MEDS: FLUTICASONE/VILANTEROL 200/25MCG 14 PUFFS/INHALER INH SCH (07:35)
[2023-01-01] MEDS: NICOTINE 14 MG/24 HR PATCH TD SCH (07:35)
--- NOTE | 2023-01-01 07:39 | Hospitalist Progress Note ---
Date of Service January 01, 2023 Assessment & Plan (1) Right-sided chest pain: (2) Pulmonary embolism: (3) Primary adenocarcinoma of upper lobe of right lung: Plan This is a 42-year-old female who has a significant past medical history of lupus, bipolar disorder, ADHD, fibromyalgia, Raynaud's disease, pseudocholinesterase deficiency, PCOS and primary adenocarcinoma of right lung who presents to ED secondary to right-sided chest pain. Right sided chest pain Pulmonary Embolism - right lower lobe ---chest CTA:1. Right lower lobe subsegmental pulmonary emboli.2. Slight improvement in the spiculated right upper lobe mass and right paratracheal/hilar lymphadenopathy.3. Mild emphysema. Started IV heparin -> switch to lovenox therap. dose of 100 bid (discussed w/ Dr. Ram - hematology at [place] and - pt's oncologist - plan for DOAC on DC) Echocardiogram obtained -mild concentric LVH. LV wall motion is normal. EF 55 to 60%. Grade 1 diastolic dysfunction. RV is normal in size and function. Doppler findings do not suggest pulmonary hypertension. monitor cbc incentive spirometry oxycodone for pain, will add morphine for severe pain, lidocaine patch Dysphagia CT shows mild thickening of upper esophagus possibly related to radiation pt on cocktail of magic swizzle, carafate, pepcid and thorazine consult speech for swallow eval Primary Adenoca of R[facility] follows Dr. Charlton or heme/onc and Dr. Chaka Charlton of Rad/onc on pac/carbo, last tx 12/21 Pancytopenia related to chemotherapy follow cbc, monitor plt Constipation Senna S BID, encourage fluid DVT ppx: IV Heparin -> lovenox Dispo tele PCP: Lou FULL CODE Admission and Anticipated Discharge Date Admission Date: December 31, 2022 Subjective Pt seen in follow up of PE, hx of lung ca Currently laying in bed, in no acute distress Has some right-sided chest pain, pleuritic Her port has been deaccessed per RN, discussed Lovenox Discussed with Dr. Ram, and Dr. Charlton who patient follows up with for lung a denocarcinoma - plan for lovenox for now, then hopefully switch to DOAC on DC Patient currently denies any fevers chills chest shortness of breath, abd. pain Review of Systems Review of Systems: All systems reviewed & are unremarkable except as noted in Subjective Physical Exam Physical Exam: General Appearance:Obese, no apparent distress Head: normocephalic, Atraumatic Eyes: normal inspection, EOMI Neck: supple Respiratory/Chest: Decreased breath sounds, CTA, No accessory muscle use Cardiovascular: S1, S2, No murmur Abdomen/GI:Soft, Non tender, Bowel sounds present Extremities/Musculoskeletal:normal inspection, no edema Neurologic/Psych:AAOX3, grossly no focal neurological deficits Skin: normal color, warm Results & Data Results & Data Vital Signs (Past 12 Hours) Vital Signs Temp Pulse Pulse Resp BP BP Pulse Ox 01/01/23 07:10 36.5 C 85 20 111/67 96 01/01/23 03:04 36.9 C 69 16 118/81 98 12/31/22 23:37 67 12/31/22 23:20 36.8 C 87 18 121/83 95 O2 Del Method O2 Flow Rate 01/01/23 07:10 Room Air 01/01/23 03:04 Nasal Cannula 2 12/31/22 23:37 12/31/22 23:20 Room Air Laboratory Results 01/01/23 01/01/23 01/01/23 Range/Units 05:38 05:38 05:38 WBC 2.14 L (4.8-10.8) K/ul RBC 2.75 L (4.20-5.40) M/uL Hgb 9.8 L (12.0-16.0) g/dl Hct 26.7 L (37.0-47.0) % MCV 97.1 (80.0-100.0) fL MCH 35.6 H (25.0-34.0) pg MCHC 36.7 H (32.0-36.0) g/dL RDW Std Deviation 59.4 H (36.4-46.3) fL RDW Coeff of Saritha 17.7 H (11.5-14.5) % Plt Count 118 L (130-400) K/uL MPV 9.8 (9.4-12.4) fL Immature Gran % (Auto) 0.5 % Neut % (Auto) 68.6 % Lymph % (Auto) 23.4 % [place] % (Auto) 7.0 % Eos % (Auto) 0.5 % Baso % (Auto) 0.0 % Neut # (Auto) 1.47 (1.40-6.50) K/uL Lymph # (Auto) 0.50 L (1.2-3.4) K/uL [place] # (Auto) 0.15 (0.11-0.59) K/uL Eos # (Auto) 0.01 (0-0.50) K/uL Baso # (Auto) 0.00 (0-0.2) K/uL Immature Gran # (Auto) 0.01 (0.01-0.20) K/uL PT (9.0-12.0) Seconds INR (0.9-1.1) APTT 35.4 H (21.0-31.0) Seconds PTT Ratio 1.3 Sodium 136 (136-145) mmol/L Potassium 3.8 (3.5-5.1) mmol/L Chloride 105 (98-107) mmol/L Carbon Dioxide 26 (21-32) mmol/L Anion Gap 5 (3-11) BUN 15 (6-23) mg/dl Creatinine 0.71 (0.6-1.2) mg/dl Est Cr Clr Drug Dosing 113.7 ml/min Est GFR ( Amer) 120.1 ml/min Est GFR (Non-Af Amer) 103.6 ml/min BUN/Creatinine Ratio 21.1 H (10-20) Glucose 127 H (70-99(Fasting)) mg/dl Calcium 8.8 (8.6-10.3) mg/dl Magnesium 1.9 (1.7-2.4) mg/dl Total Bilirubin 0.5 (0.2-1.0) mg/dl AST 9 L (13-39) U/L ALT 10 (7-52) U/L Alkaline Phosphatase 78 (34-104) U/L Troponin I High Sens (0-14) pg/ml Total Protein 6.1 (6.0-8.3) gm/dl Albumin 3.4 (3.4-5.0) gm/dl Globulin 2.7 (2.5-4.0) gm/dl Albumin/Globulin Ratio 1.3 (0.9-2) Lipase (11-82) U/L SARS-CoV-2, RNA, NAAT (NEGATIVE) 12/31/22 12/31/22 12/31/22 Range/Units 21:39 14:07 14:00 WBC (4.8-10.8) K/ul RBC (4.20-5.40) M/uL Hgb (12.0-16.0) g/dl Hct (37.0-47.0) % MCV (80.0-100.0) fL MCH (25.0-34.0) pg MCHC (32.0-36.0) g/dL RDW Std Deviation (36.4-46.3) fL RDW Coeff of Saritha (11.5-14.5) % Plt Count (130-400) K/uL MPV (9.4-12.4) fL Immature Gran % (Auto) % Neut % (Auto) % Lymph % (Auto) % [place] % (Auto) % Eos % (Auto) % Baso % (Auto) % Neut # (Auto) (1.40-6.50) K/uL Lymph # (Auto) (1.2-3.4) K/uL [place] # (Auto) (0.11-0.59) K/uL Eos # (Auto) (0-0.50) K/uL Baso # (Auto) (0-0.2) K/uL Immature Gran # (Auto) (0.01-0.20) K/uL PT 10.0 (9.0-12.0) Seconds INR 0.9 (0.9-1.1) APTT 28.3 23.5 (21.0-31.0) Seconds PTT Ratio 1.0 0.8 Sodium (136-145) mmol/L Potassium (3.5-5.1) mmol/L Chloride (98-107) mmol/L Carbon Dioxide (21-32) mmol/L Anion Gap (3-11) BUN (6-23) mg/dl Creatinine (0.6-1.2) mg/dl Est Cr Clr Drug Dosing ml/min Est GFR ( Amer) ml/min Est GFR (Non-Af Amer) ml/min BUN/Creatinine Ratio (10-20) Glucose (70-99(Fasting)) mg/dl Calcium (8.6-10.3) mg/dl Magnesium (1.7-2.4) mg/dl Total Bilirubin (0.2-1.0) mg/dl AST (13-39) U/L ALT (7-52) U/L Alkaline Phosphatase (34-104) U/L Troponin I High Sens (0-14) pg/ml Total Protein (6.0-8.3) gm/dl Albumin (3.4-5.0) gm/dl Globulin (2.5-4.0) gm/dl Albumin/Globulin Ratio (0.9-2) Lipase (11-82) U/L SARS-CoV-2, RNA, NAAT NEGATIVE (NEGATIVE) 12/31/22 12/31/22 Range/Units 10:40 10:40 WBC 1.86 L (4.8-10.8) K/ul RBC 3.14 L (4.20-5.40) M/uL Hgb 11.1 L (12.0-16.0) g/dl Hct 30.4 L (37.0-47.0) % MCV 96.8 (80.0-100.0) fL MCH 35.4 H (25.0-34.0) pg MCHC 36.5 H (32.0-36.0) g/dL RDW Std Deviation 61.0 H (36.4-46.3) fL RDW Coeff of Saritha 18.2 H (11.5-14.5) % Plt Count 109 L (130-400) K/uL MPV 9.5 (9.4-12.4) fL Immature Gran % (Auto) 0.5 % Neut % (Auto) 80.8 % Lymph % (Auto) 14.5 % [place] % (Auto) 3.2 % Eos % (Auto) 0.5 % Baso % (Auto) 0.5 % Neut # (Auto) 1.50 (1.40-6.50) K/uL Lymph # (Auto) 0.27 L (1.2-3.4) K/uL [place] # (Auto) 0.06 L (0.11-0.59) K/uL Eos # (Auto) 0.01 (0-0.50) K/uL Baso # (Auto) 0.01 (0-0.2) K/uL Immature Gran # (Auto) 0.01 (0.01-0.20) K/uL PT (9.0-12.0) Seconds INR (0.9-1.1) APTT (21.0-31.0) Seconds PTT Ratio Sodium 137 (136-145) mmol/L Potassium 4.1 (3.5-5.1) mmol/L Chloride 107 (98-107) mmol/L Carbon Dioxide 25 (21-32) mmol/L Anion Gap 5 (3-11) BUN 17 (6-23) mg/dl Creatinine 0.79 (0.6-1.2) mg/dl Est Cr Clr Drug Dosing 100.7 ml/min Est GFR ( Amer) 105.5 ml/min Est GFR (Non-Af Amer) 91.0 ml/min BUN/Creatinine Ratio 21.5 H (10-20) Glucose 122 H (70-99(Fasting)) mg/dl Calcium 9.0 (8.6-10.3) mg/dl Magnesium (1.7-2.4) mg/dl Total Bilirubin 0.6 (0.2-1.0) mg/dl AST 12 L (13-39) U/L ALT 12 (7-52) U/L Alkaline Phosphatase 98 (34-104) U/L Troponin I High Sens < 2.3 (0-14) pg/ml Total Protein 6.7 (6.0-8.3) gm/dl Albumin 3.7 (3.4-5.0) gm/dl Globulin 3.0 (2.5-4.0) gm/dl Albumin/Globulin Ratio 1.2 (0.9-2) Lipase 21 (11-82) U/L SARS-CoV-2, RNA, NAAT (NEGATIVE) Medications Administered Current Inpatient Medications Acetaminophen (Acetaminophen 325 Mg Tab) 650 mg PO Q4H PRN PRN Reason: Pain or Fever Stop: 01/30/23 16:36 Hydrocodone Bitart/Acetaminophen (Acetaminophen/Hydrocodone Elix 15 Ml/Cup) 15 ml PO Q6H PRN PRN Reason: Severe Pain (Scale 7, 8, 9,10) Stop: 01/14/23 18:46 Al Hydrox/Mg Hydrox/Simethicone (Aluminum/Magnesium Susp 30 Ml Udc) 15 ml PO Q4H PRN PRN Reason: Dyspepsia Stop: 01/30/23 16:36 Albuterol (Albuterol Hfa 8 Gm Inhaler) 2 puffs INH Q4H PRN PRN Reason: COUGH/SOB/WHEEZING Stop: 01/30/23 16:36 Chlorpromazine HCl (Chlorpromazine Hcl 25 Mg Tab) 25 mg PO Q6H PRN PRN Reason: Hiccups Stop: 01/30/23 16:36 Last Admin: 12/31/22 22:58 Dose: 25 mg Famotidine (Famotidine 10 Mg Tablet) 10 mg PO BID [facility] Stop: 01/30/23 20:59 Last Admin: 01/01/23 07:34 Dose: 10 mg Fluticasone/Vilanterol (Fluticasone/Vilanterol 200/25mcg 14 Puffs/Inhaler) 1 puffs INH DAILY [facility]; Protocol Stop: 01/30/23 16:59 Last Admin: 01/01/23 07:35 Dose: 1 puffs Hydromorphone HCl (Hydromorphone Inj 0.5 Mg/0.5 Ml Syr) 0.5 mg IV Q6H PRN PRN Reason: Severe Pain (Scale 7, 8, 9,10) Stop: 01/14/23 20:14 Last Admin: 01/01/23 03:00 Dose: 0.5 mg Heparin Sodium/Dextrose (Heparin Sodium/Dextrose) 25,000 units in 500 mls @ 21 mls/hr IV .[id number] [facility]; Protocol Stop: 01/30/23 14:14 Last Titration: 12/31/22 23:06 Dose: 1,050 units/hr, 21 mls/hr Lorazepam (Lorazepam 0.5 Mg Tab) 0.5 mg PO TID PRN PRN Reason: Anxiety Stop: 01/30/23 16:36 Last Admin: 01/01/23 07:31 Dose: 0.5 mg Magnesium Hydroxide (Magnesium Hydroxide Susp 30 Ml Udc) 30 ml PO Q12H PRN PRN Reason: Constipation Stop: 01/30/23 16:36 Miscellaneous (Remove Nicoderm Patch) 1 each N/A DAILY@0859 [facility] Stop: 01/31/23 08:58 Last Admin: 01/01/23 07:33 Dose: Not Given Nicotine (Nicotine 14 Mg/24 Hr Patch) 14 mg TD QAM [facility] Stop: 01/30/23 19:14 Last Admin: 01/01/23 07:35 Dose: Not Given Magic Mouthwash~Non- Formulary Patient's Own Med 1 each PO ACHS [facility] Stop: 01/30/23 09:59 Last Admin: 12/31/22 23:33 Dose: Not Given Ondansetron HCl (Ondansetron Inj 2 Mg/Ml 2 Ml Vial) 4 mg IV Q6H PRN PRN Reason: Nausea Stop: 01/30/23 16:36 Oxycodone HCl (Oxycodone Hcl Ir 5 Mg Tab (Immediate Release)) 10 mg PO Q8H PRN PRN Reason: Mild-Mod Pain (Scale 1-6) Stop: 01/14/23 16:48 Last Admin: 01/01/23 01:22 Dose: 10 mg Polyethylene Glycol (Polyethylene (Miralax) 17 Gm Pack) 17 gm PO DAILY PRN PRN Reason: Constipation Stop: 01/30/23 16:36 Senna/Docusate Sodium (Docusate Sodium/Senna 50/8.6mg Tab) 1 tab PO BID [facility] Stop: 01/30/23 20:59 Last Admin: 01/01/23 07:33 Dose: Not Given Spironolactone (Spironolactone 100 Mg Tab) 200 mg PO BID17 [facility] Stop: 01/30/23 16:59 Last Admin: 01/01/23 07:34 Dose: 200 mg Sucralfate (Sucralfate 1 Gm Tab) 1 gm PO Q6H [facility] Stop: 01/30/23 16:59 Last Admin: 01/01/23 05:42 Dose: Not Given
[2023-01-01] MEDS: MAGIC MOUTHWASH PO SCH ×4 (07:47→20:22)
[2023-01-01] MEDS ORDERED: HEPARIN SOD (PORCINE) 1000 UNIT/ML IV ONE (08:30)
[2023-01-01] MEDS ORDERED: ENOXAPARIN 100 MG/1ML SYR SQ SCH (08:45)
[2023-01-01] MEDS ORDERED: HEPARIN STOP ORDER ONE (09:00)
[2023-01-01] MEDS: ENOXAPARIN 100 MG/1ML SYR SQ SCH ×3 (09:28→20:23)
[2023-01-01] MEDS: chlorproMAZINE HCL 25 MG TAB PO PRN ×3 (09:40→21:13)
[2023-01-01] MEDS ORDERED: LIDOCAINE 5% 1 PATCH TD STA (10:39)
--- NOTE | 2023-01-01 15:46 | Oncology Consultation ---
Date of Consultation January 01, 2023 Assessment & Plan (1) Pulmonary embolism: (2) Right-sided chest pain: (3) Primary adenocarcinoma of upper lobe of right lung: (4) Systemic lupus erythematosus: Plan -PE likely provoked by malignancy. Continue with weight based lovenox 1mg/kg BID for the next 24-48 hours/ until symptoms improve after which she can be switched to DOAC. 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 Will defer to her primary oncologist/director of residence life on this Thank you for this consult. Hematology will sign off at this time. Patient should be scheduled for follow-up with Dr. Charlton upon discharge for continued management of lung cancer as well as PE History of Present Illness Reason for Consultation: PE, history of lung cancer Attending Physician: Cali Hou MD History of Present Illness 42-year-old female with history of lupus as well as stage III lung cancer for which she is currently on concurrent chemoradiation treatment with carboplatin/paclitaxel started on 11/19/2022. Patient presented with chest pain for which CTA chest was obtained on 12/31/2022 which revealed right lower lobe segmental PE and slight improvement in spiculated right upper lobe mass and right paratracheal/hilar lymphadenopathy. Patient was initially started on IV heparin and was switched to Lovenox earlier today. I could not evaluate patient as she was in the bathroom at the time of today's visit so history was obtained from review of records. Allergies Allergy/AdvReac Type Severity Reaction Status Date / Time levofloxacin [From Levaquin] Allergy Severe THROAT Verified 12/31/22 14:16 SWELLS SHUT, ITCHY Penicillins Allergy Severe Anaphylaxis Verified 12/31/22 14:16 clindamycin Allergy Intermediate Rash Verified 12/31/22 14:16 bupropion [From Wellbutrin] AdvReac Severe suicidal Verified 12/31/22 14:16 ideation ANESTHESIA AdvReac Severe FLAT LINES Uncoded 12/31/22 14:16 PLASTIC AdvReac Severe SKIN PEELS Uncoded 12/31/22 14:16 Home Medications Medication Instructions Recorded Confirmed Type spironolactone 100 mg tablet 200 mg PO BID 09/24/19 12/31/22 History (Aldactone) albuterol sulfate 90 mcg/actuation 2 puff inhalation Q4H PRN 09/21/22 12/31/22 History aerosol inhaler (Ventolin HFA) COUGH/SOB/WHEEZING fluticasone propionate 230 2 inh inhalation BID 10/24/22 12/31/22 History mcg-salmeterol 21 mcg/actuation HFA inhaler (Advair HFA) lorazepam 0.5 mg tablet 0.5 mg PO TID PRN Anxiety 10/24/22 12/31/22 History dextroamphetamine-amphetamine 20 See Rx Instructions .Route .COMPLEX 10/29/22 12/31/22 History mg tablet (Adderall) ibuprofen 800 mg tablet 800 mg PO TID PRN Pain 10/29/22 12/31/22 History oxycodone 5 mg capsule 5 mg PO Q8H PRN Pain 11/25/22 12/31/22 History Magic Mouthwash 300 mL mouthwash 10 ml mucous membrane ACHS #300 mL 12/04/22 12/31/22 Rx famotidine 10 mg tablet (Acid 10 mg PO BID #60 tabs 12/10/22 12/31/22 Rx Tank Calibrator (famotidine)) sucralfate 1 gram tablet (Carafate) 1 g PO Q6H #120 tabs 12/15/22 12/31/22 Rx hydrocodone 10 mg-acetaminophen 15 ml PO Q8H PRN pain #240 mL 12/16/22 12/31/22 Rx 325 mg/15 mL (15 mL) oral solution benzonatate 100 mg capsule 100 mg PO TID PRN cough #60 caps 12/22/22 12/31/22 Rx meloxicam 7.5 mg tablet 7.5 mg PO DAILY PRN Muscle Spasm 12/22/22 12/31/22 History chlorpromazine 25 mg tablet 25 mg PO Q6H PRN Hiccups 12/31/22 12/31/22 History Patient History Medical History ADHD Asthma Endometriosis of the uterus, unspecified Systemic lupus erythematosus Tobacco abuse Surgical History H/O right wrist surgery H/O tubal ligation H/O: hysterectomy History of cholecystectomy Hx of appendectomy S/P bronchoscopy Family History Mother Cancer Breast Grandmother (Maternal) Cancer Lung Social History Smoking Status: Current every day smoker Tobacco Type: Cigarettes Cigarettes Per Day: has been trying to quit; Second Hand Exposure: Yes; Do You Dip or Chew Tobacco: No; Tobacco Cessation Education Requested by Patient: Yes Hx Alcohol Use: No Hx Substance Use: No Preferred Language: [place] Communication Ability: Effective Visual Impairment: No Limitations Hearing Ability: Normal Value Analyst Required: No Beliefs That Will Affect Care: None marital status: Single Current Living Situation: Family Current Living Situation Comment: engaged current occupational status: unemployed 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 Feels Safe at Home: Yes Safety Concerns: Feels Safe At This Time Diet: regular during the past year weight has: remained stable Assistive Devices: Oxygen - at Night Results & Data Vital Signs (Past 12 Hours) Vital Signs Temp Pulse Resp BP Pulse Ox O2 Del Method 01/01/23 15:40 36.8 C 94 H 21 115/64 96 Room Air 01/01/23 10:55 36.7 C 96 H 22 109/67 94 Room Air 01/01/23 07:30 Room Air 01/01/23 07:10 36.5 C 85 20 111/67 96 Room Air (4) Systemic lupus erythematosus Systemic lupus erythematosus organ involvement: unspecified Systemic lupus erythematosus type: unspecified Qualified Code(s): M32.9 - Systemic lupus erythematosus, unspecified
[2023-01-01] MEDS: BENZONATATE 100 MG CAPSULE PO PRN (18:45)
[2023-01-02] MEDS: SUCRALFATE 1 GM TAB PO SCH ×4 (05:40→22:15)
--- NOTE | 2023-01-02 06:14 | Electrocardiogram Report ---
Test Reason : Blood Pressure : / mmHG Vent. Rate : 092 BPM Atrial Rate : 092 BPM P-R Int : 122 ms QRS Dur : 082 ms QT Int : 362 ms P-R-T Axes : 044 -02 011 degrees QTc Int : 447 ms Normal sinus rhythm with sinus arrhythmia Normal ECG When compared with ECG of 24-OCT-2022 20:06, Premature ventricular complexes are no longer Present Confirmed by Juaquin Maria ([id number]) on 01/02/2023 6:14:33 AM Referred By: Confirmed By:Juaquin Maria
--- NOTE | 2023-01-02 06:54 | Hospitalist Progress Note ---
Date of Service January 02, 2023 Assessment & Plan (1) Right-sided chest pain: (2) Pulmonary embolism: (3) Primary adenocarcinoma of upper lobe of right lung: Plan This is a 42-year-old female who has a significant past medical history of lupus, bipolar disorder, ADHD, fibromyalgia, Raynaud's disease, pseudocholinesterase deficiency, PCOS and primary adenocarcinoma of right lung who presents to ED secondary to right-sided chest pain. Right sided chest pain Pulmonary Embolism - right lower lobe ---chest CTA:1. Right lower lobe subsegmental pulmonary emboli.2. Slight improvement in the spiculated right upper lobe mass and right paratracheal/hilar lymphadenopathy.3. Mild emphysema. Started IV heparin -> switched to lovenox therap. dose of 100 bid (discussed w/ Dr. Ram - hematology at [place] and - pt's oncologist - plan for DOAC on DC) Echocardiogram obtained -mild concentric LVH. LV wall motion is normal. EF 55 to 60%. Grade 1 diastolic dysfunction. RV is normal in size and function. Doppler findings do not suggest pulmonary hypertension. monitor cbc incentive spirometry oxycodone for pain, will add morphine for severe pain, lidocaine patch Dysphagia CT shows mild thickening of upper esophagus possibly related to radiation pt on cocktail of magic swizzle, carafate, pepcid and thorazine consult speech for swallow eval Primary Adenoca of [place] follows Dr. Charlton or heme/onc and Dr. Chaka Charlton of Rad/onc on pac/carbo, last tx 12/21 Pancytopenia related to chemotherapy follow cbc, monitor plt Constipation Senna S BID, encourage fluid DVT ppx: lovenox therap. dose Dispo tele PCP: Lou FULL CODE Admission and Anticipated Discharge Date Admission Date: December 31, 2022 Subjective Pt seen in follow up of PE, hx of lung ca Currently sitting up in bed, in no acute distress Continues to have right-sided chest pain, pleuritic Discussed with Dr. Ram, and Dr. Charlton who patient follows up with for lung adenocarcinoma - yesterday and started her on lovenox for now, then hopefully switch to DOAC on DC Patient currently denies any fevers chills chest shortness of breath, abd. pain Review of Systems Review of Systems: All systems reviewed & are unremarkable except as noted in Subjective Physical Exam Physical Exam: General Appearance:Obese, no apparent distress Head: normocephalic, Atraumatic Eyes: normal inspection, EOMI Neck: supple Respiratory/Chest: Decreased breath sounds, CTA, No accessory muscle use Cardiovascular: S1, S2, No murmur Abdomen/GI:Soft, Non tender, Bowel sounds present Extremities/Musculoskeletal:normal inspection, no edema Neurologic/Psych:AAOX3, grossly no focal neurological deficits Skin: normal color, warm Results & Data Results & Data Vital Signs (Past 12 Hours) Vital Signs Temp Pulse Pulse Resp BP BP Pulse Ox 01/02/23 03:38 36.5 C 73 16 96/62 L 96 01/01/23 23:00 90 01/01/23 23:07 36.7 C 93 H 20 113/71 94 01/01/23 20:00 01/01/23 19:13 36.8 C 74 18 124/77 97 O2 Del Method O2 Flow Rate 01/02/23 03:38 Room Air 01/01/23 23:00 01/01/23 23:07 Room Air 01/01/23 20:00 Room Air, Nasal Cannula 2 01/01/23 19:13 Room Air Laboratory Results 01/02/23 01/02/23 Range/Units 08:09 08:09 WBC 1.42 L (4.8-10.8) K/ul RBC 2.82 L (4.20-5.40) M/uL Hgb 9.9 L (12.0-16.0) g/dl Hct 27.7 L (37.0-47.0) % MCV 98.2 (80.0-100.0) fL MCH 35.1 H (25.0-34.0) pg MCHC 35.7 (32.0-36.0) g/dL RDW Std Deviation 63.0 H (36.4-46.3) fL RDW Coeff of Saritha 19.0 H (11.5-14.5) % Plt Count 115 L (130-400) K/uL MPV 9.5 (9.4-12.4) fL Immature Gran % (Auto) 0.7 % Neut % (Auto) 48.6 % Lymph % (Auto) 40.1 % [place] % (Auto) 9.2 % Eos % (Auto) 1.4 % Baso % (Auto) 0.0 % Neut # (Auto) 0.69 L* (1.40-6.50) K/uL Lymph # (Auto) 0.57 L (1.2-3.4) K/uL [place] # (Auto) 0.13 (0.11-0.59) K/uL Eos # (Auto) 0.02 (0-0.50) K/uL Baso # (Auto) 0.00 (0-0.2) K/uL Immature Gran # (Auto) 0.01 (0.01-0.20) K/uL Sodium Pending Potassium Pending Chloride Pending Carbon Dioxide Pending Anion Gap Pending BUN Pending Creatinine Pending Est Cr Clr Drug Dosing Pending Est GFR ( Amer) Pending Est GFR (Non-Af Amer) Pending BUN/Creatinine Ratio Pending Glucose Pending Calcium Pending Magnesium Pending Total Bilirubin Pending AST Pending ALT Pending Alkaline Phosphatase Pending Total Protein Pending Albumin Pending Globulin Pending Albumin/Globulin Ratio Pending Medications Administered Current Inpatient Medications Acetaminophen (Acetaminophen 325 Mg Tab) 650 mg PO Q4H PRN PRN Reason: Pain or Fever Stop: 01/30/23 16:36 Hydrocodone Bitart/Acetaminophen (Acetaminophen/Hydrocodone Elix 15 Ml/Cup) 15 ml PO Q6H PRN PRN Reason: Severe Pain (Scale 7, 8, 9,10) Stop: 01/14/23 18:46 Al Hydrox/Mg Hydrox/Simethicone (Aluminum/Magnesium Susp 30 Ml Udc) 15 ml PO Q4H PRN PRN Reason: Dyspepsia Stop: 01/30/23 16:36 Albuterol (Albuterol Hfa 8 Gm Inhaler) 2 puffs INH Q4H PRN PRN Reason: COUGH/SOB/WHEEZING Stop: 01/30/23 16:36 Benzonatate (Benzonatate 100 Mg Capsule) 100 mg PO TID PRN PRN Reason: cough Stop: 01/31/23 20:59 Last Admin: 01/01/23 18:45 Dose: 100 mg Chlorpromazine HCl (Chlorpromazine Hcl 25 Mg Tab) 25 mg PO Q6H PRN PRN Reason: Hiccups Stop: 01/30/23 16:36 Last Admin: 01/01/23 21:13 Dose: 25 mg Enoxaparin Sodium (Enoxaparin 100 Mg/1ml Syr) 90 mg SQ Q12 [facility] Stop: 01/31/23 08:59 Last Admin: 01/01/23 20:23 Dose: 90 mg Famotidine (Famotidine 10 Mg Tablet) 10 mg PO BID [facility] Stop: 01/30/23 20:59 Last Admin: 01/01/23 16:03 Dose: 10 mg Fluticasone/Vilanterol (Fluticasone/Vilanterol 200/25mcg 14 Puffs/Inhaler) 1 puffs INH DAILY [facility]; Protocol Stop: 01/30/23 16:59 Last Admin: 01/01/23 07:35 Dose: 1 puffs Hydromorphone HCl (Hydromorphone Inj 0.5 Mg/0.5 Ml Syr) 0.5 mg IV Q6H PRN PRN Reason: Severe Pain (Scale 7, 8, 9,10) Stop: 01/14/23 20:14 Last Admin: 01/01/23 21:13 Dose: 0.5 mg Lorazepam (Lorazepam 0.5 Mg Tab) 0.5 mg PO TID PRN PRN Reason: Anxiety Stop: 01/30/23 16:36 Last Admin: 01/01/23 21:13 Dose: 0.5 mg Magnesium Hydroxide (Magnesium Hydroxide Susp 30 Ml Udc) 30 ml PO Q12H PRN PRN Reason: Constipation Stop: 01/30/23 16:36 Miscellaneous (Remove Nicoderm Patch) 1 each N/A DAILY@0859 [facility] Stop: 01/31/23 08:58 Last Admin: 01/01/23 07:33 Dose: Not Given Miscellaneous (Remove Lidoderm Patch) 1 each N/A DAILY@2100 [facility] Stop: 01/31/23 20:59 Last Admin: 01/01/23 20:24 Dose: 1 each Nicotine (Nicotine 14 Mg/24 Hr Patch) 14 mg TD QAM [facility] Stop: 01/30/23 19:14 Last Admin: 01/01/23 07:35 Dose: Not Given Magic Mouthwash~Non- Formulary Patient's Own Med 1 each PO ACHS [facility] Stop: 01/30/23 09:59 Last Admin: 01/01/23 20:22 Dose: 10 ml Ondansetron HCl (Ondansetron Inj 2 Mg/Ml 2 Ml Vial) 4 mg IV Q6H PRN PRN Reason: Nausea Stop: 01/30/23 16:36 Oxycodone HCl (Oxycodone Hcl Ir 5 Mg Tab (Immediate Release)) 10 mg PO Q8H PRN PRN Reason: Mild-Mod Pain (Scale 1-6) Stop: 01/14/23 16:48 Last Admin: 01/01/23 20:21 Dose: 10 mg Polyethylene Glycol (Polyethylene (Miralax) 17 Gm Pack) 17 gm PO DAILY PRN PRN Reason: Constipation Stop: 01/30/23 16:36 Senna/Docusate Sodium (Docusate Sodium/Senna 50/8.6mg Tab) 1 tab PO BID [facility] Stop: 01/30/23 20:59 Last Admin: 01/01/23 20:22 Dose: 1 tab Spironolactone (Spironolactone 100 Mg Tab) 200 mg PO [id number] [facility] Stop: 01/30/23 16:59 Last Admin: 01/01/23 16:56 Dose: 200 mg Sucralfate (Sucralfate 1 Gm Tab) 1 gm PO Q6H [facility] Stop: 01/30/23 16:59 Last Admin: 01/02/23 05:40 Dose: Not Given
[2023-01-02] MEDS: HYDROmorphone INJ 0.5 MG/0.5 ML SYR IV PRN ×3 (08:13→20:40)
[2023-01-02] MEDS: LORazepam 0.5 MG TAB PO PRN ×3 (08:13→20:40)
[2023-01-02] MEDS: NICOTINE 14 MG/24 HR PATCH TD SCH (08:15)
[2023-01-02] MEDS: chlorproMAZINE HCL 25 MG TAB PO PRN ×2 (08:16→20:40)
[2023-01-02] MEDS: BENZONATATE 100 MG CAPSULE PO PRN (08:16)
[2023-01-02] MEDS: FLUTICASONE/VILANTEROL 200/25MCG 14 PUFFS/INHALER INH SCH (08:16)
[2023-01-02] MEDS: DOCUSATE SODIUM/SENNA 50/8.6MG TAB PO SCH ×2 (08:17→20:44)
[2023-01-02] MEDS: FAMOTIDINE 10 MG TABLET PO SCH ×2 (08:18→20:41)
[2023-01-02] MEDS: MAGIC MOUTHWASH PO SCH ×4 (08:19→20:48)
[2023-01-02] MEDS: ENOXAPARIN 100 MG/1ML SYR SQ SCH ×2 (08:19→20:41)
[2023-01-02] MEDS: SPIRONOLACTONE 100 MG TAB PO SCH ×2 (08:20→22:14)
[2023-01-02] MEDS ORDERED: BENZONATATE 100 MG CAPSULE PO PRN (08:41)
[2023-01-02 08:50] LABS: Hematocrit (blood only) 27.7 % (37.0-47.0); Hemoglobin 9.9 g/dl (12.0-16.0); Mean Corpuscular Hemoglobin 35.1 pg (25.0-34.0); Mean Corpuscular Hgb Conc 35.7 g/dL (32.0-36.0); Mean Corpuscular Volume 98.2 fL (80.0-100.0); Mean Platelet Volume 9.5 fL (9.4-12.4); Platelet Count 115 K/uL (130-400); Red Blood Count 2.82 M/uL (4.20-5.40); White Blood Count 1.42 K/ul (4.8-10.8)
[2023-01-02 09:17] LABS: Eosinophils # (auto) 0.02 K/uL (0-0.50); Eosinophils % (auto) 1.4 %; Immature Granulocytes # (auto) 0.01 K/uL (0.01-0.20); Immature Granulocytes % (auto) 0.7 %; Lymphocytes # (auto) 0.57 K/uL (1.2-3.4); Lymphocytes % (auto) 40.1 %; Monocytes # (auto) 0.13 K/uL (0.11-0.59); Monocytes % (auto) 9.2 %; Neutrophils # (auto) 0.69 K/uL (1.40-6.50); Neutrophils % (auto) 48.6 %
[2023-01-02] MEDS: oxyCODONE HCL IR 5 MG TAB (IMMEDIATE RELEASE) PO PRN ×2 (11:27→19:48)
[2023-01-02 13:01] LABS: Albumin Level 3.3 gm/dl (3.4-5.0); Bilirubin,Total 0.5 mg/dl (0.2-1.0); Calcium 8.9 mg/dl (8.6-10.3); Magnesium 1.7 mg/dl (1.7-2.4); Potassium 3.7 mmol/L (3.5-5.1)
[2023-01-02 13:07] LABS: Albumin Globulin Ratio 1.3 (0.9-2); BUN Creatinine Ratio 19.5 (10-20); Est GFR (African American) 100.9 ml/min; Globulin 2.5 gm/dl (2.5-4.0); Total Protein 5.8 gm/dl (6.0-8.3)
[2023-01-02] MEDS ORDERED: bisacodyL 10 MG SUPP PR STA (17:35)
[2023-01-02] MEDS ORDERED: bisacodyL 10 MG SUPP PR ONE (17:48)
[2023-01-02] MEDS: POLYETHYLENE (MIRALAX) 17 GM PACK PO SCH (18:19)
[2023-01-02] MEDS: DOCUSATE SODIUM 100 MG CAP PO SCH (20:40)
[2023-01-02] MEDS: BENZONATATE 100 MG CAPSULE PO SCH (22:14)
[2023-01-03] MEDS: SUCRALFATE 1 GM TAB PO SCH ×4 (04:30→22:59)
--- NOTE | 2023-01-03 05:54 | Electrocardiogram Report ---
Test Reason : Blood Pressure : / mmHG Vent. Rate : 068 BPM Atrial Rate : 068 BPM P-R Int : 136 ms QRS Dur : 100 ms QT Int : 434 ms P-R-T Axes : 043 000 015 degrees QTc Int : 461 ms Sinus rhythm with occasional Premature ventricular complexes Otherwise normal ECG When compared with ECG of 31-DEC-2022 10:10, Premature ventricular complexes are now Present Confirmed by Juaquin Maria ([id number]) on 01/03/2023 5:54:25 AM Referred By: REFERRED SELF Confirmed By:Juaquin Maria
[2023-01-03 06:31] LABS: Hematocrit (blood only) 29.2 % (37.0-47.0); Hemoglobin 10.5 g/dl (12.0-16.0); Mean Corpuscular Hemoglobin 35.6 pg (25.0-34.0); Mean Platelet Volume 9.5 fL (9.4-12.4); Platelet Count 116 K/uL (130-400); RDW Coefficient of Variation 19.4 % (11.5-14.5); RDW Standard Deviation 65.9 fL (36.4-46.3); Red Blood Count 2.95 M/uL (4.20-5.40); White Blood Count 1.58 K/ul (4.8-10.8)
[2023-01-03] MEDS: ENOXAPARIN 100 MG/1ML SYR SQ SCH ×2 (08:09→20:47)
[2023-01-03] MEDS: FAMOTIDINE 10 MG TABLET PO SCH ×2 (08:09→20:47)
[2023-01-03] MEDS: SPIRONOLACTONE 100 MG TAB PO SCH ×2 (08:10→22:27)
[2023-01-03] MEDS: chlorproMAZINE HCL 25 MG TAB PO PRN ×3 (08:10→20:49)
[2023-01-03] MEDS: MAGIC MOUTHWASH PO SCH ×4 (08:10→21:31)
[2023-01-03] MEDS: HYDROmorphone INJ 0.5 MG/0.5 ML SYR IV PRN ×3 (08:20→21:30)
[2023-01-03] MEDS: FLUTICASONE/VILANTEROL 200/25MCG 14 PUFFS/INHALER INH SCH (08:21)
[2023-01-03] MEDS: LORazepam 0.5 MG TAB PO PRN ×2 (08:21→21:30)
[2023-01-03] MEDS: DOCUSATE SODIUM/SENNA 50/8.6MG TAB PO SCH ×3 (08:55→20:47)
[2023-01-03] MEDS: DOCUSATE SODIUM 100 MG CAP PO SCH ×2 (08:55→20:47)
[2023-01-03] MEDS: NICOTINE 14 MG/24 HR PATCH TD SCH (08:56)
[2023-01-03] MEDS: POLYETHYLENE (MIRALAX) 17 GM PACK PO SCH (08:57)
[2023-01-03] MEDS: ONDANSETRON INJ 2 MG/ML 2 ML VIAL IV PRN ×3 (09:48→22:27)
[2023-01-03] MEDS: oxyCODONE HCL IR 5 MG TAB (IMMEDIATE RELEASE) PO PRN ×2 (13:31→22:27)
--- NOTE | 2023-01-03 15:34 | Hospitalist Progress Note ---
Date of Service January 03, 2023 Assessment & Plan (1) Right-sided chest pain: (2) Pulmonary embolism: (3) Primary adenocarcinoma of upper lobe of right lung: Plan This is a 42-year-old female who has a significant past medical history of lupus, bipolar disorder, ADHD, fibromyalgia, Raynaud's disease, pseudocholinesterase deficiency, PCOS and primary adenocarcinoma of right lung who presents to ED secondary to right-sided chest pain. Right sided chest pain Pulmonary Embolism - right lower lobe ---chest CTA:1. Right lower lobe subsegmental pulmonary emboli.2. Slight improvement in the spiculated right upper lobe mass and right paratracheal/hilar lymphadenopathy.3. Mild emphysema. Started IV heparin -> switched to lovenox therap. dose of 100 bid (discussed w/ Dr. Ram - hematology at [facility] and - pt's oncologist - plan for DOAC on DC) Echocardiogram obtained -mild concentric LVH. LV wall motion is normal. EF 55 to 60%. Grade 1 diastolic dysfunction. RV is normal in size and function. Doppler findings do not suggest pulmonary hypertension. monitor cbc incentive spirometry oxycodone for pain, iv dilaudid for severe pain, lidocaine patch Pt reports oxycodone is not helpful and dilaudid helps Cont. to have sign. R-sided CP - will obtain CXR Dysphagia CT shows mild thickening of upper esophagus possibly related to radiation pt on cocktail of magic swizzle, carafate, pepcid and thorazine consult speech for swallow eval Primary Ad[facility]oca of [facility] follows Dr. Charlton or heme/onc and Dr. Chaka Charlton of Rad/onc on pac/carbo, last tx 12/21 Pancytopenia related to chemotherapy follow cbc, monitor plt Constipation Senna S BID, colace, miralax, encourage fluid DVT ppx: lovenox therap. dose Dispo tele PCP: Lou FULL CODE Admission and Anticipated Discharge Date Admission Date: December 31, 2022 Subjective Pt seen in follow up of PE, hx of lung ca Currently sitting up in bed, in no acute distress Continues to have right-sided chest pain, pleuritic Patient currently denies any fevers chills chest shortness of breath, abd. pain. She had a BM but still feels constipated. Discussed bowel regimen. Review of Systems Review of Systems: All systems reviewed & are unremarkable except as noted in Subjective Physical Exam Physical Exam: General Appearance:Obese, no apparent distress Head: normocephalic, Atraumatic Eyes: normal inspection, EOMI Neck: supple Respiratory/Chest: Decreased breath sounds, CTA, No accessory muscle use Cardiovascular: S1, S2, No murmur Abdomen/GI:Soft, Non tender, Bowel sounds present Extremities/Musculoskeletal:normal inspection, no edema Neurologic/Psych:AAOX3, grossly no focal neurological deficits Skin: normal color, warm Results & Data Results & Data Vital Signs (Past 12 Hours) Vital Signs Temp Pulse Pulse Resp BP Pulse Ox O2 Del Method 01/03/23 08:22 Room Air 01/03/23 11:28 36.6 C 96 H 18 91/60 L 95 Room Air 01/03/23 06:02 100 H 01/03/23 07:26 36.8 C 92 H 16 105/72 97 Nasal Cannula O2 Flow Rate 01/03/23 08:22 01/03/23 11:28 01/03/23 06:02 01/03/23 07:26 2 Laboratory Results 01/03/23 Range/Units 05:53 WBC 1.58 L (4.8-10.8) K/ul RBC 2.95 L (4.20-5.40) M/uL Hgb 10.5 L (12.0-16.0) g/dl Hct 29.2 L (37.0-47.0) % MCV 99.0 (80.0-100.0) fL MCH 35.6 H (25.0-34.0) pg MCHC 36.0 (32.0-36.0) g/dL RDW Std Deviation 65.9 H (36.4-46.3) fL RDW Coeff of Saritha 19.4 H (11.5-14.5) % Plt Count 116 L (130-400) K/uL MPV 9.5 (9.4-12.4) fL Medications Administered Current Inpatient Medications Acetaminophen (Acetaminophen 325 Mg Tab) 650 mg PO Q4H PRN PRN Reason: Pain or Fever Stop: 01/30/23 16:36 Hydrocodone Bitart/Acetaminophen (Acetaminophen/Hydrocodone Elix 15 Ml/Cup) 15 ml PO Q6H PRN PRN Reason: Severe Pain (Scale 7, 8, 9,10) Stop: 01/14/23 18:46 Al Hydrox/Mg Hydrox/Simethicone (Aluminum/Magnesium Susp 30 Ml Udc) 15 ml PO Q4H PRN PRN Reason: Dyspepsia Stop: 01/30/23 16:36 Albuterol (Albuterol Hfa 8 Gm Inhaler) 2 puffs INH Q4H PRN PRN Reason: COUGH/SOB/WHEEZING Stop: 01/30/23 16:36 Benzonatate (Benzonatate 100 Mg Capsule) 100 mg PO BID PRN PRN Reason: cough Stop: 02/01/23 08:40 Benzonatate (Benzonatate 100 Mg Capsule) 100 mg PO DAILY@2300 [facility] Stop: 02/01/23 22:59 Last Admin: 01/02/23 22:14 Dose: 100 mg Chlorpromazine HCl (Chlorpromazine Hcl 25 Mg Tab) 25 mg PO Q6H PRN PRN Reason: Hiccups Stop: 01/30/23 16:36 Last Admin: 01/03/23 08:10 Dose: 25 mg Docusate Sodium (Docusate Sodium 100 Mg Cap) 100 mg PO BID [facility]; Protocol Stop: 02/01/23 20:59 Last Admin: 01/03/23 08:55 Dose: Not Given Enoxaparin Sodium (Enoxaparin 100 Mg/1ml Syr) 90 mg SQ Q12 [facility] Stop: 01/31/23 08:59 Last Admin: 01/03/23 08:09 Dose: 90 mg Famotidine (Famotidine 10 Mg Tablet) 10 mg PO BID [facility] Stop: 01/30/23 20:59 Last Admin: 01/03/23 08:09 Dose: 10 mg Fluticasone/Vilanterol (Fluticasone/Vilanterol 200/25mcg 14 Puffs/Inhaler) 1 puffs INH DAILY [facility]; Protocol Stop: 01/30/23 16:59 Last Admin: 01/03/23 08:21 Dose: 1 puffs Hydromorphone HCl (Hydromorphone Inj 0.5 Mg/0.5 Ml Syr) 0.5 mg IV Q6H PRN PRN Reason: Severe Pain (Scale 7, 8, 9,10) Stop: 01/14/23 20:14 Last Admin: 01/03/23 08:20 Dose: 0.5 mg Lorazepam (Lorazepam 0.5 Mg Tab) 0.5 mg PO TID PRN PRN Reason: Anxiety Stop: 01/30/23 16:36 Last Admin: 01/03/23 08:21 Dose: 0.5 mg Magnesium Hydroxide (Magnesium Hydroxide Susp 30 Ml Udc) 30 ml PO Q12H PRN PRN Reason: Constipation Stop: 01/30/23 16:36 Last Admin: 01/02/23 22:26 Dose: 30 ml Miscellaneous (Remove Nicoderm Patch) 1 each N/A DAILY@0859 [facility] Stop: 01/31/23 08:58 Last Admin: 01/03/23 08:54 Dose: Not Given Miscellaneous (Remove Lidoderm Patch) 1 each N/A DAILY@2100 [facility] Stop: 01/31/23 20:59 Last Admin: 01/02/23 20:42 Dose: 1 each Nicotine (Nicotine 14 Mg/24 Hr Patch) 14 mg TD QAM [facility] Stop: 01/30/23 19:14 Last Admin: 01/03/23 08:56 Dose: Not Given Magic Mouthwash~Non- Formulary Patient's Own Med 1 each PO ACHS [facility] Stop: 01/30/23 09:59 Last Admin: 01/03/23 12:46 Dose: 10 ml Ondansetron HCl (Ondansetron Inj 2 Mg/Ml 2 Ml Vial) 4 mg IV Q6H PRN PRN Reason: Nausea Stop: 01/30/23 16:36 Last Admin: 01/03/23 09:48 Dose: 4 mg Oxycodone HCl (Oxycodone Hcl Ir 5 Mg Tab (Immediate Release)) 10 mg PO Q8H PRN PRN Reason: Mild-Mod Pain (Scale 1-6) Stop: 01/14/23 16:48 Last Admin: 01/03/23 13:31 Dose: 10 mg Polyethylene Glycol (Polyethylene (Miralax) 17 Gm Pack) 17 gm PO DAILY [facility] Stop: 02/01/23 18:14 Last Admin: 01/03/23 08:57 Dose: Not Given Senna/Docusate Sodium (Docusate Sodium/Senna 50/8.6mg Tab) 1 tab PO BID [facility] Stop: 01/30/23 20:59 Last Admin: 01/03/23 12:45 Dose: 1 tab Spironolactone (Spironolactone 100 Mg Tab) 200 mg PO BID@0900,2300 [facility] Stop: 02/01/23 22:59 Last Admin: 01/03/23 08:10 Dose: 200 mg Sucralfate (Sucralfate 1 Gm Tab) 1 gm PO Q6H [facility] Stop: 01/30/23 16:59 Last Admin: 01/03/23 12:07 Dose: Not Given
--- NOTE | 2023-01-03 15:37 | XRay Report ---
XR chest 1V portable HISTORY: 42 years-old Female follow up R sided CP, known PE acute chest pain COMPARISON: 12/31/2022 TECHNIQUE: AP view of the chest FINDINGS: 3 cm right upper lobe mass redemonstrated. Right hilar prominence again noted. Right IJ [id number] catheter appears stable. Pulmonary emphysema. No pneumothorax, pleural effusion, airspace consolidat ion or pulmonary edema. Bones appear grossly intact. IMPRESSION: 1. Emphysema without acute process. 2. Right upper lobe mass with associated right hilar lymphadenopathy again noted. ACT 112: Negative or not required by law. The above report was generated using voice recognition software. It may contain grammatical, syntax o r spelling errors. Electronically signed by: Gamaliel Mahan M.D. 01/03/2023 3:35 PM
[2023-01-03] MEDS ORDERED: POLYETHYLENE (MIRALAX) 17 GM PACK PO ONE (21:04)
[2023-01-03] MEDS: BENZONATATE 100 MG CAPSULE PO SCH (22:27)
[2023-01-04] MEDS: HYDROmorphone INJ 0.5 MG/0.5 ML SYR IV PRN ×2 (03:31→09:35)
[2023-01-04] MEDS: chlorproMAZINE HCL 25 MG TAB PO PRN ×2 (03:44→10:20)
[2023-01-04] MEDS: SUCRALFATE 1 GM TAB PO SCH ×2 (05:17→11:34)
[2023-01-04] MEDS: oxyCODONE HCL IR 5 MG TAB (IMMEDIATE RELEASE) PO PRN (05:39)
[2023-01-04 06:44] LABS: Hematocrit (blood only) 30.2 % (37.0-47.0); Hemoglobin 10.8 g/dl (12.0-16.0); Mean Corpuscular Hemoglobin 35.1 pg (25.0-34.0); Mean Corpuscular Hgb Conc 35.8 g/dL (32.0-36.0); Mean Corpuscular Volume 98.1 fL (80.0-100.0); Mean Platelet Volume 9.3 fL (9.4-12.4); Platelet Count 132 K/uL (130-400); RDW Coefficient of Variation 19.9 % (11.5-14.5); RDW Standard Deviation 68.2 fL (36.4-46.3); Red Blood Count 3.08 M/uL (4.20-5.40); White Blood Count 1.43 K/ul (4.8-10.8)
[2023-01-04 07:10] LABS: BUN Creatinine Ratio 12.9 (10-20); Calcium 9.3 mg/dl (8.6-10.3); Creatinine Clr Calc Pharmacy 93.3 ml/min; Est GFR (African American) 96.6 ml/min; Est GFR (Non-African American) 83.3 ml/min; Magnesium 1.9 mg/dl (1.7-2.4); Potassium 4.1 mmol/L (3.5-5.1)
[2023-01-04] MEDS: MAGIC MOUTHWASH PO SCH ×2 (07:43→11:35)
[2023-01-04] MEDS: ENOXAPARIN 100 MG/1ML SYR SQ SCH (07:44)
[2023-01-04] MEDS: FAMOTIDINE 10 MG TABLET PO SCH (07:45)
[2023-01-04] MEDS: SPIRONOLACTONE 100 MG TAB PO SCH (07:45)
[2023-01-04] MEDS: DOCUSATE SODIUM 100 MG CAP PO SCH (07:45)
[2023-01-04] MEDS: NICOTINE 14 MG/24 HR PATCH TD SCH (07:46)
[2023-01-04] MEDS: FLUTICASONE/VILANTEROL 200/25MCG 14 PUFFS/INHALER INH SCH (07:46)
[2023-01-04] MEDS: POLYETHYLENE (MIRALAX) 17 GM PACK PO SCH (07:51)
[2023-01-04] MEDS: DOCUSATE SODIUM/SENNA 50/8.6MG TAB PO SCH (07:51)
[2023-01-04] MEDS: LORazepam 0.5 MG TAB PO PRN (09:35)
[2023-01-04] MEDS: ONDANSETRON INJ 2 MG/ML 2 ML VIAL IV PRN (09:42)
[2023-01-04] MEDS ORDERED: HYDROmorphone HCL 2 MG TAB PO PRN (10:05)
--- NOTE | 2023-01-04 13:06 | Discharge Summary ---
Date of Service January 04, 2023 Admission HPI Per Admitting Provider This is a 42-year-old female who has a significant past medical history of lupus, bipolar disorder, ADHD, fibromyalgia, Raynaud's disease, pseudocholinesterase deficiency, PCOS and primary adenocarcinoma of right lung who presents to ED secondary to right-sided chest pain. She follows [facility] oncology. She is currently receiving chemo and radiation treatment. She is receiving weekly paclitaxel which started on 11/19/2022. She is also on carboplatin. Her last treatment was on 12/23/2022. She is getting radiation through 01/16. She also has lupus but has not been on medication for over 1 year. She smokes daily, 4 cigarettes. She has been cutting down. She did smoke 1.5ppd and down to 4 cigarettes. She complains of right sided chest pain that is stabbing to her back. She also complains of dizziness and shortness of breath. She did have a fever last night. Denies calf pain and leg swelling. On Thursday she had nausea and vomiting but this has since resolved. She is chronically constipated. She uses sennokot for this. Her Last BM was over the weekend. She denies any bleeding problems. She does complain of daily nose bleeds, "clots in nose." When she blows nose she gets bright red clots. She also complains of difficulty swallowing solids/liquids and she is concerned in may be related to radiation. They tried thorazine which is helping with hiccups. Surgical hx: Hx of cholecystectomy, hysterectomy, appendectomy, oopherectomy, hand surgery. Admission Exam Per Admitting Provider General Appearance:Obese, no apparent distress Head: normocephalic, Atraumatic Eyes: normal inspection, EOMI Neck: supple, Trachea midline Respiratory/Chest: Decreased breath sounds, CTA, No accessory muscle use Cardiovascular: S1, S2, No murmur Abdomen/GI:Soft, Non tender, Bowel sounds present Extremities/Musculoskeletal:normal inspection, no edema Neurologic/Psych:AAOX3, grossly no focal neurological deficits Skin: normal color, warm Principal Diagnosis Acute pulmonary embolism Discharge Exam General Appearance:Obese, no apparent distress Head: normocephalic, Atraumatic Eyes: normal inspection, EOMI Neck: supple Respiratory/Chest: Decreased breath sounds, CTA, No accessory muscle use Cardiovascular: S1, S2, No murmur Abdomen/GI:Soft, Non tender, Bowel sounds present Extremities/Musculoskeletal:normal inspection, no edema Neurologic/Psych:AAOX3, grossly no focal neurological deficits Skin: normal color, warm Discharge Data Allergies Allergy/AdvReac Type Severity Reaction Status Date / Time levofloxacin [From Levaquin] Allergy Severe THROAT Verified 12/31/22 14:16 SWELLS SHUT, ITCHY Penicillins Allergy Severe Anaphylaxis Verified 12/31/22 14:16 clindamycin Allergy Intermediate Rash Verified 12/31/22 14:16 bupropion [From Wellbutrin] AdvReac Severe suicidal Verified 12/31/22 14:16 ideation ANESTHESIA AdvReac Severe FLAT LINES Uncoded 12/31/22 14:16 PLASTIC AdvReac Severe SKIN PEELS Uncoded 12/31/22 14:16 Consultations 01/01/23 08:25 Consult Hematology Routine 01/01/23 10:52 Consult Patient Rep [Consult Patient Services] Routine Ordered Studies 12/31/22 11:30 CT angio chest PE protocol Stat FINDINGS: Normal caliber thoracic aorta with no evidence for a dissection. Filling defects noted within the right lateral basal subsegmental pulmonary arteries consistent with right lower lobe pulmonary emboli. The main pulmonary arteries are patent. No evidence for right-sided heart strain. The heart is normal in size. No pleural or pericardial effusions. Mild circumferential thickening within the upper esophagus. Slight decrease in size in the right p aratracheal and right hilar lymphadenopathy. The right paratracheal lymphadenopathy appears partially necrotic. This could be due to posttreatment changes. No new/progressive lymphadenopathy within the chest. Limited views of the upper abdomen demonstrate a normal liver, spleen, and adrenal glands. Right jugular Port-A-Cath terminates in the distal SVC. No suspicious lytic or blastic osseous lesions. Mild emphysema. No pneumothorax. The central airways are patent. No new focal lung consolidations to suggest a pneumonia. No evidence for pulmonary edema. Slight decrease in size in the now 3 cm spiculated right upper lobe mass. IMPRESSION: 1. Right lower lobe subsegmental pulmonary emboli. 2. Slight improvement in the spiculated right upper lobe mass and right paratracheal/hilar lymphadenopathy. 3. Mild emphysema. Hospital Course (1) Right-sided chest pain: (2) Pulmonary embolism: (3) Primary adenocarcinoma of upper lobe of right lung: Plan This is a 42-year-old female who has a significant past medical history of lupus, bipolar disorder, ADHD, fibromyalgia, Raynaud's disease, pseudocholinesterase deficiency, PCOS and primary adenocarcinoma of right lung who presents to ED secondary to right-sided chest pain. Right sided chest pain Pulmonary Embolism - right lower lobe ---chest CTA:1. Right lower lobe subsegmental pulmonary emboli.2. Slight improvement in the spiculated right upper lobe mass and right paratracheal/hilar lymphadenopathy.3. Mild emphysema. Started IV heparin -> switched to lovenox therap. dose of 100 bid (discussed w/ Dr. Ram - hematology at [facility] and - pt's oncologist - plan for DOAC on [place]) Echocardiogram obtained -mild concentric LVH. LV wall motion is normal. EF 55 to 60%. Grade 1 diastolic dysfunction. RV is normal in size and function. Doppler findings do not suggest pulmonary hypertension. monitor cbc incentive spirometry oxycodone for pain, iv dilaudid for severe pain, lidocaine patch Pt reports oxycodone is not helpful and dilaudid helps 01/03 Cont. to have sign. R-sided CP - obtained CXR - negative for any acute changes 01/04 patient feels improved, however she wishes to be discharged on subcu Lovenox instead of Eliquis. Lovenox prescription was sent to patient's pharmacy. 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 Charlton. Dysphagia CT shows mild thickening of upper esophagus possibly related to radiation pt on cocktail of magic swizzle, carafate, pepcid and thorazine consult speech for swallow eval Primary [place] of [facility] follows Dr. Charlton or heme/onc and Dr. Chaka Charlton of Rad/onc on pac/carbo, last tx 12/21 Pancytopenia related to chemotherapy follow cbc, monitor plt Constipation Senna S BID, colace, miralax, encourage fluid DVT ppx: lovenox therap. dose Total Time Total Time Spent Total Time Spent (In Minutes): 40 Discharge Plan Discharge Items Patient Disposition: Home - Self-Care Reason For Visit: PULMONARY EMBOLISM Discharge Diagnosis: Acute pulmonary embolism Activity: Per Instructions section Non-emergency contact: Primary Care Provider and Oncologist Call non-emergency contact if: you have any medication questions and your symptoms worsen Follow-up/Referrals: Josue Blake MD [Primary Care Provider] - (Date & Time 01/08/2023 11:00 AM Provider Mitra [facility] ) Diet: Regular Diet Texture: Easy to Chew Addtl Attending Provider Instructions: Follow-up with your primary care doctor, the appointment was scheduled for you for January 08. You also need to follow-up with your oncologist/steel post installer, Dr. Charlton. You will likely need further testing - hypercoagulable work-up. Use Lovenox 90 mg every 12 hours[address] Discuss further with Dr. Charlton when this sh ould be stopped. For pain, take Tylenol 1000 mg 3 times a day, max daily dose is 3000 mg. For more severe pain, take Dilaudid 0.5 mg every 4 hours as needed, as prescribed. Pending Studies at Discharge: No Stand-Alone Forms: My [employer], Smoking Cessation Medications and DC Order Prescriptions: New enoxaparin 100 mg/mL Syringe 90 mg subcut Q12 30 Days Qty: 54 0RF hydromorphone [Dilaudid] 2 mg Tablet 0.5 mg PO Q4H PRN (Reason: pain) Qty: 7 0RF Continued oxycodone 5 mg Capsule 5 mg PO Q8H PRN (Reason: Pain) chlorpromazine 25 mg tablet 25 mg PO Q6H PRN (Reason: Hiccups) Magic Mouthwash 300 mL mouthwash 10 ml mucous membrane ACHS MDD esophagitis Qty: 300 4RF famotidine [Acid Dining Room Tables Set Up Attendant (famotidine)] 10 mg tablet 10 mg PO BID Qty: 60 0RF sucralfate [Carafate] 1 gram tablet 1 g PO Q6H Qty: 120 2RF Rx Instructions: dissolve in one teaspoon of water. Swallow before meals and at bed time. hydrocodone-acetaminophen 10-325 mg/15 mL(15 mL) solution 15 ml PO Q8H PRN (Reason: pain) Qty: 240 0RF benzonatate 100 mg capsule 100 mg PO TID PRN (Reason: cough) Qty: 60 2RF Rx Instructions: One or Two as needed for cough spironolactone [Aldactone] 100 mg tablet 200 mg PO BID dextroamphetamine-amphetamine [Adderall] 20 mg tablet See Rx Instructions .ROUTE .COMPLEX Rx Instructions: PER PT "HAVENT BEEN TAKING FOR A WHILE". TAKES 20 MG QAM, THEN 10 MG AT NOON & 1500. albuterol sulfate [Ventolin HFA] 90 mcg/actuation HFA aerosol inhaler 2 puff INHALATION Q4H PRN (Reason: COUGH/SOB/WHEEZING) lorazepam 0.5 mg tablet 0.5 mg PO TID PRN (Reason: Anxiety) Rx Instructions: PER PT "USE NEEDED". fluticasone propion-salmeterol [Advair HFA] 230-21 mcg/actuation HFA aerosol inhaler 2 inh INHALATION BID Discontinued meloxicam 7.5 mg tablet 7.5 mg PO DAILY PRN (Reason: Muscle Spasm) ibuprofen 800 mg tablet 800 mg PO TID PRN (Reason: Pain) Discharge Orders: Discharge Order (Routine); Ordered 01/04/23 Ordered By: Cali Hou Admission Data Admit Date/Time: 12/31/22 14:08 Attending Provider: Cali Hou Admit Provider: Gutierrez Fontaine Primary Care Provider: Josue Blake Other Providers: Gutierrez Fontaine ; Vandana Ram
== END 2023-01-04 13:44 | disposition home or self-care (01) | DRG 175 ==
LOC: ED 09:54 → SUATTDRO 14:08 → 2S 14:08

== ENCOUNTER 2023-01-18 15:24 | Inpatient (IN) ==
[2023-01-18] MEDS ORDERED: ALUMINUM/MAGNESIUM SUSP 30 ML UDC PO STA (15:39)
--- NOTE | 2023-01-18 15:41 | Emergency Department Note ---
Impression & Plan Vomiting, Primary adenocarcinoma of upper lobe of right lung, Dysphagia ED Provider Note NAME: FANNIE HERNANDEZ AGE: 42 SEX: F : 1980 ARRIVES VIA: Walk-In INFORMANT: Patient ED PROVIDER(S): Tenzin Marsh DO CHIEF COMPLAINT: chest pain and throat pain HPI: Patient is a 42-year-old female with a past medical history PE, pancytopenia, lupus as well as lung cancer who just finished up chemo last week and is currently receiving radiation. She has 1 more week to go. She notes she has pain in the middle of her chest for the past 3 days. She has been unable to eat anything and now is having trouble and feels as though she cannot get any liquids down. She notes it is very painful to swallow. She has pain coming up into her neck. She follows with Dr. Charlton. Denies any belly pain but does have nausea and vomiting. No dysuria urgency or frequency. No other exacerbating or remitting factors. PAST MEDICAL HISTORY:See Below PAST SURGICAL HISTORY:See Below FAMILY HISTORY:See Below SOCIAL HISTORY:See Below HOME MEDICATIONS:See Below ALLERGIES:See Below VITALS:See Below PHYSICAL EXAMINATION: GENERAL: Sitting up in bed, alert, well appearing, well nourished, no distress, non-toxic EYE EXAM: normal conjunctiva. PERRL and EOM's grossly intact. OROPHARYNX: Dry mucous membranes NECK: supple, no nuchal rigidity, no adenopathy, tender throughout the anterior soft tissue of the neck LUNGS: Clear to auscultation. Normal chest wall mechanics HEART: no murmurs, S1 normal and S2 normal ABDOMEN: abdomen soft, non-tender, normo-active bowel sounds, no masses, no rebound or guarding. UPPER EXTREMITIES: upper extremities are grossly normal. LOWER EXTREMITIES: No pitting edema. NEURO EXAM: Normal sensorium, cranial nerves II-XII grossly intact, normal speech, no gross weakness of arms, no gross weakness of legs. MEDICAL DECISION MAKING: Patient is a 42-year-old female who presents ER for above-stated complaint. IV was established blood work was obtained. External records were reviewed. Patient currently undergoing radiation and just finished chemotherapy for lung cancer. Labs show mild leukopenia 3.3. No significant anemia. BMP with LFTs bilirubin and lipase is unremarkable. UA was contaminated but no signs of infection. COVID-negative. Patient is having trouble swallowing and is having severe pain and is vomiting and is unable to keep anything down. She was given IV fluids Zofran and Reglan. Chest x-ray was clean. She is updated bedside. Discussed with the hospitalist for further evaluation management treatment. Triage Nursing notes reviewed. Limited review of prior medical records performed Vital Signs: reviewed and remarkable for tachy Differential diagnosis: Cardiac ischemia, aortic dissection, pulmonary embolism, pneumothorax, pneumonia, pericarditis, myocarditis, esophageal rupture, GERD, cholecystitis, pancreatitis, musculoskeletal, as well as other pathologies. ER treatment provided: See below Diagnostics interpreted by me include EKG and cardiac monitoring as listed below: -Cardiac Monitoring: An order was placed for continuous cardiac monitoring. The monitor shows a rate of 110 with sinus rhythm. -ECG: Sinus tachycardia rate of 114 PVCs Normal axis Poor baseline QTc 460 -Laboratory studies:Interpreted by me as stated above in MDM and shown below. Imaging studies: Xrays: As interpreted by me: Portable AP upright 1 view of the chest shows no focal infiltrate CTs show: none Consultation(s): As described in MDM Procedures:none Critical Care: None Past Med/Surg History Medical History ADHD Asthma Endometriosis of the uterus, unspecified Systemic lupus erythematosus Tobacco abuse Surgical History H/O right wrist surgery H/O tubal ligation H/O: hysterectomy History of cholecystectomy Hx of appendectomy S/P bronchoscopy Family History Mother Cancer Breast Grandmother (Maternal) Cancer Lung Social History Smoking Status: Current every day smoker Tobacco Type: Cigarettes Cigarettes Per Day: has been trying to quit; Second Hand Exposure: Yes; Do You Dip or Chew Tobacco: No; Hx Alcohol Use: No Hx Substance Use: No Preferred Language: Khmer Communication Ability: Effective Visual Impairment: No Limitations Hearing Ability: Normal Animal Physiologist Required: No Beliefs That Will Affect Care: None marital status: Single Current Living Situation: Family Current Living Situation Comment: engaged current occupational status: unemployed 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 Feels Safe at Home: Yes Diet: regular during the past year weight has: remained stable Assistive Devices: Oxygen - at Night Allergies Allergies Allergy/AdvReac Type Severity Reaction Status Date / Time levofloxacin [From Levaquin] Allergy Severe THROAT Verified 12/31/22 14:16 SWELLS SHUT, ITCHY Penicillins Allergy Severe Anaphylaxis Verified 12/31/22 14:16 clindamycin Allergy Intermediate Rash Verified 12/31/22 14:16 bupropion [From Wellbutrin] AdvReac Severe suicidal Verified 12/31/22 14:16 ideation ANESTHESIA AdvReac Severe FLAT LINES Uncoded 12/31/22 14:16 PLASTIC AdvReac Severe SKIN PEELS Uncoded 12/31/22 14:16 Home Meds Home Medications Medication Instructions Recorded Confirmed spironolactone 100 mg tablet 200 mg PO BID 09/24/19 01/18/23 (Aldactone) albuterol sulfate 90 mcg/actuation 2 puff inhalation Q4H PRN 09/21/22 01/18/23 aerosol inhaler (Ventolin HFA) COUGH/SOB/WHEEZING fluticasone propionate 230 2 inh inhalation BID 10/24/22 01/18/23 mcg-salmeterol 21 mcg/actuation HFA inhaler (Advair HFA) lorazepam 0.5 mg tablet 0.5 mg PO TID PRN Anxiety 10/24/22 01/18/23 dextroamphetamine-amphetamine 20 See Rx Instructions .Route .COMPLEX 10/29/22 01/18/23 mg tablet (Adderall) oxycodone 5 mg capsule 5 mg PO Q8H PRN Pain 11/25/22 01/18/23 chlorpromazine 25 mg tablet 25 mg PO Q6H PRN Hiccups 12/31/22 01/18/23 ondansetron HCl 8 mg tablet 8 mg PO Q8H PRN Other 01/06/23 01/18/23 sucralfate 1 gram tablet (Carafate) 1 g PO Q6H PRN Other 01/06/23 01/18/23 morphine 15 mg immediate release 15 mg PO Q4H PRN Other 01/13/23 01/18/23 tablet Previous Rx's Medication Instructions Recorded Magic Mouthwash 300 mL mouthwash 10 ml mucous membrane ACHS #300 mL 12/04/22 famotidine 10 mg tablet (Acid 10 mg PO BID #60 tabs 12/10/22 Asbestos Microscopist (famotidine)) benzonatate 100 mg capsule 100 mg PO TID PRN cough #60 caps 12/22/22 enoxaparin 100 mg/mL subcutaneous 90 mg (0.9 mL) subcut Q12 30 days 01/04/23 syringe #54 mL hydromorphone 2 mg tablet 0.5 mg PO Q4H PRN pain #7 tabs 01/04/23 (Dilaudid) Results & Data (ED) Vital Signs Vital Signs - 24 hr 01/18/23 15:24 01/18/23 16:10 01/18/23 16:10 Temperature 36.4 C L Temperature Source Temporal Artery Scan Pulse Rate 107 H 89 Pulse Rate [Right Finger] 95 H Pulse Rhythm Regular Pulse Rhythm [Right Finger] Regular Pulse Strength [Right Finger] Normal Respiratory Rate 16 20 20 Respiratory Effort / Characteristics Non-Labored Spontaneous Non-Labored Respiratory Depth Normal Normal Respiratory Pattern Regular Blood Pressure 114/72 Blood Pressure [Right Arm] 119/92 Blood Pressure Mean 86 Blood Pressure Mean [Right Arm] 101 Blood Pressure Position [Right Arm] Sitting Pulse Oximetry 97 95 95 Oxygen Delivery Method Room Air Room Air Room Air Sepsis Recent Fever Within 48 Hours No Sepsis New/Unexplained Change in Mental Status No Sepsis Action Taken by Nursing No Action Required 01/18/23 16:39 Temperature Temperature Source Pulse Rate 108 H Pulse Rate [Right Finger] Pulse Rhythm Pulse Rhythm [Right Finger] Pulse Strength [Right Finger] Respiratory Rate Respiratory Effort / Characteristics Respiratory Depth Respiratory Pattern Blood Pressure Blood Pressure [Right Arm] Blood Pressure Mean Blood Pressure Mean [Right Arm] Blood Pressure Position [Right Arm] Pulse Oximetry Oxygen Delivery Method Sepsis Recent Fever Within 48 Hours Sepsis New/Unexplained Change in Mental Status Sepsis Action Taken by Nursing Laboratory Data 01/18/23 15:40 01/18/23 15:40 Lab Results 01/18/23 01/18/23 01/18/23 Range/Units 15:40 15:40 15:48 WBC 3.32 L (4.8-10.8) K/ul RBC 3.30 L (4.20-5.40) M/uL Hgb 12.2 (12.0-16.0) g/dl Hct 33.2 L (37.0-47.0) % MCV 100.6 H (80.0-100.0) fL MCH 37.0 H (25.0-34.0) pg MCHC 36.7 H (32.0-36.0) g/dL RDW Std Deviation 73.5 H (36.4-46.3) fL RDW Coeff of Saritha 20.4 H (11.5-14.5) % Plt Count 212 (130-400) K/uL MPV 9.9 (9.4-12.4) fL Immature Gran % (Auto) 1.5 % Neut % (Auto) 75.3 % Lymph % (Auto) 17.5 % Rusk % (Auto) 5.4 % Eos % (Auto) 0.0 % Baso % (Auto) 0.3 % Neut # (Auto) 2.50 (1.40-6.50) K/uL Lymph # (Auto) 0.58 L (1.2-3.4) K/uL Rusk # (Auto) 0.18 (0.11-0.59) K/uL Eos # (Auto) 0.00 (0-0.50) K/uL Baso # (Auto) 0.01 (0-0.2) K/uL Immature Gran # (Auto) 0.05 (0.01-0.20) K/uL Anisocytosis Present Tear Drop Cells 1+ Sodium 137 (136-145) mmol/L Potassium 4.4 (3.5-5.1) mmol/L Chloride 105 (98-107) mmol/L Carbon Dioxide 23 (21-32) mmol/L Anion Gap 9 (3-11) BUN 15 (6-23) mg/dl Creatinine 0.81 (0.6-1.2) mg/dl Est Cr Clr Drug Dosing 96.8 ml/min Est GFR ( Amer) 102.4 ml/min Est GFR (Non-Af Amer) 88.3 ml/min BUN/Creatinine Ratio 18.5 (10-20) Glucose 115 H (70-99(Fasting)) mg/dl Calcium 9.8 (8.6-10.3) mg/dl Total Bilirubin 0.5 (0.2-1.0) mg/dl AST 10 L (13-39) U/L ALT 15 (7-52) U/L Alkaline Phosphatase 75 (34-104) U/L Troponin I High Sens < 2.3 (0-14) pg/ml Total Protein 7.8 (6.0-8.3) gm/dl Albumin 4.3 (3.4-5.0) gm/dl Globulin 3.5 (2.5-4.0) gm/dl Albumin/Globulin Ratio 1.2 (0.9-2) Lipase 23 (11-82) U/L Urine Color Dark Yellow Urine Appearance Turbid A (Clear) Urine pH 5.5 (4.5-7.5) Ur Specific [place] 1.023 (1.000-1.030) Urine Protein Negative (Negative) Urine Glucose (UA) Negative (Negative) Urine Ketones Negative (Negative) Urine Blood Negative (Negative) Urine Nitrite Negative (Negative) Urine Bilirubin Negative (Negative) Urine Urobilinogen Negative (Negative) Ur Leukocyte Esterase Negative (Negative) Urine WBC (Auto) 1-5 (0-5) /hpf Urine RBC (Auto) 0-4 (0-4) /hpf U Hyaline Cast (Auto) 1-5 (0-5) /lpf U Epithel Cells (Auto) >30 H (0-5) /lpf Urine Bacteria (Auto) 4+ H (Negative) SARS-CoV-2, RNA, NAAT (NEGATIVE) 01/18/23 Range/Units 16:08 WBC (4.8-10.8) K/ul RBC (4.20-5.40) M/uL Hgb (12.0-16.0) g/dl Hct (37.0-47.0) % MCV (80.0-100.0) fL MCH (25.0-34.0) pg MCHC (32.0-36.0) g/dL RDW Std Deviation (36.4-46.3) fL RDW Coeff of Saritha (11.5-14.5) % Plt Count (130-400) K/uL MPV (9.4-12.4) fL Immature Gran % (Auto) % Neut % (Auto) % Lymph % (Auto) % Rusk % (Auto) % Eos % (Auto) % Baso % (Auto) % Neut # (Auto) (1.40-6.50) K/uL Lymph # (Auto) (1.2-3.4) K/uL Rusk # (Auto) (0.11-0.59) K/uL Eos # (Auto) (0-0.50) K/uL Baso # (Auto) (0-0.2) K/uL Immature Gran # (Auto) (0.01-0.20) K/uL Anisocytosis Tear Drop Cells Sodium (136-145) mmol/L Potassium (3.5-5.1) mmol/L Chloride (98-107) mmol/L Carbon Dioxide (21-32) mmol/L Anion Gap (3-11) BUN (6-23) mg/dl Creatinine (0.6-1.2) mg/dl Est Cr Clr Drug Dosing ml/min Est GFR ( Amer) ml/min Est GFR (Non-Af Amer) ml/min BUN/Creatinine Ratio (10-20) Glucose (70-99(Fasting)) mg/dl Calcium (8.6-10.3) mg/dl Total Bilirubin (0.2-1.0) mg/dl AST (13-39) U/L ALT (7-52) U/L Alkaline Phosphatase (34-104) U/L Troponin I High Sens (0-14) pg/ml Total Protein (6.0-8.3) gm/dl Albumin (3.4-5.0) gm/dl Globulin (2.5-4.0) gm/dl Albumin/Globulin Ratio (0.9-2) Lipase (11-82) U/L Urine Color Urine Appearance (Clear) Urine pH (4.5-7.5) Ur Specific [place] (1.000-1.030) Urine Protein (Negative) Urine Glucose (UA) (Negative) Urine Ketones (Negative) Urine Blood (Negative) Urine Nitrite (Negative) Urine Bilirubin (Negative) Urine Urobilinogen (Negative) Ur Leukocyte Esterase (Negative) Urine WBC (Auto) (0-5) /hpf Urine RBC (Auto) (0-4) /hpf U Hyaline Cast (Auto) (0-5) /lpf U Epithel Cells (Auto) (0-5) /lpf Urine Bacteria (Auto) (Negative) SARS-CoV-2, RNA, NAAT NEGATIVE (NEGATIVE) Administered Medications Discontinued Medications Al Hydrox/Mg Hydrox/Simethicone (Aluminum/Magnesium Susp 30 Ml Udc) 15 ml PO NOW STA Stop: 01/18/23 15:40 Last Admin: 01/18/23 15:59 Dose: 15 ml Documented By: CODEY Ioversol (Optiray 320 100ml) 92 ml IV ONCE ONE Stop: 01/18/23 20:21 Last Admin: 01/18/23 20:20 Dose: 92 ml Documented By: RENATA Metoclopramide HCl (Metoclopramide Hcl Inj 5 Mg/Ml 2 Ml Vial) 10 mg IV NOW STA Stop: 01/18/23 17:03 Last Admin: 01/18/23 17:13 Dose: 10 mg Documented By: CODEY Imaging Data Radiologist's Impression: Chest X-Ray 01/18/23 15:39 XR chest 1V portable CLINICAL HISTORY: Atypical chest pain. COMPARISON STUDY: Chest radiograph and chest CT January 05, 2023 FINDINGS: Right internal jugular [id number] remains in place. There is no pneumothorax or pleural effusion. There is no consolidation to suggest pneumonia. Right upper lobe mass measuring approximately 3.3 cm is again noted. This appears similar to chest radiograph January 05, 2023 but decreased in size from earlier exams. Mediastinal lymphadenopathy is better depicted on prior chest CT. The appearance of the chest is unchanged. No evidence for pulmonary edema. IMPRESSION: 1. No acute cardiopulmonary findings. 2. Right upper lobe mass and mediastinal lymphadenopathy better depicted on prior chest CT. ACT 112: Negative or not required by law. Electronically signed by: Dewey Reza M.D. 01/18/2023 4:19 PM Discharge Plan Visit Data Chief Complaint: Illness Stated Complaint: ISSUES SWALLOWING ED Provider: Teznin Marsh Discharge Problem: Vomiting, Primary adenocarcinoma of upper lobe of right lung, Dysphagia Patient Disposition: Admitted As Inpatient Discharge Instructions Interventions: ED Discharge Assessment Last Done: 01/18/23 18:56
--- NOTE | 2023-01-18 16:20 | XRay Report ---
XR chest 1V portable CLINICAL HISTORY: Atypical chest pain. COMPARISON STUDY: Chest radiograph and chest CT January 05, 2023 FINDINGS: Right internal jugular [id number] remains in place. There is no pneumothorax or pleural effusion. There is no consolidation to suggest pneumonia. Right upper lobe mass measuring approximate ly 3.3 cm is again noted. This appears similar to chest radiograph January 05, 2023 but decreased in siz e from earlier exams. Mediastinal lymphadenopathy is better depicted on prior chest CT. The appearanc e of the chest is unchanged. No evidence for pulmonary edema. IMPRESSION: 1. No acute cardiopulmonary findings. 2. Right upper lobe mass and mediastinal lymphadenopathy better depicted on prior chest CT. ACT 112: Negative or not required by law. Electronically signed by: Dewey Reza M.D. 01/18/2023 4:19 PM
[2023-01-18 16:23] LABS: Basophils # (auto) 0.01 K/uL (0-0.2); Basophils % (auto) 0.3 %; Hematocrit (blood only) 33.2 % (37.0-47.0); Hemoglobin 12.2 g/dl (12.0-16.0); Immature Granulocytes # (auto) 0.05 K/uL (0.01-0.20); Immature Granulocytes % (auto) 1.5 %; Lymphocytes # (auto) 0.58 K/uL (1.2-3.4); Lymphocytes % (auto) 17.5 %; Mean Corpuscular Hgb Conc 36.7 g/dL (32.0-36.0); Mean Corpuscular Volume 100.6 fL (80.0-100.0); Mean Platelet Volume 9.9 fL (9.4-12.4); Monocytes # (auto) 0.18 K/uL (0.11-0.59); Monocytes % (auto) 5.4 %; Neutrophils % (auto) 75.3 %; Platelet Count 212 K/uL (130-400); RDW Coefficient of Variation 20.4 % (11.5-14.5); RDW Standard Deviation 73.5 fL (36.4-46.3); White Blood Count 3.32 K/ul (4.8-10.8)
[2023-01-18 16:25] LABS: Alanine Aminotransferase 15 U/L (7-52); Albumin Globulin Ratio 1.2 (0.9-2); Albumin Level 4.3 gm/dl (3.4-5.0); Alkaline Phosphatase 75 U/L (34-104); Anion Gap 9 (3-11); Aspartate Aminotransferase 10 U/L (13-39); BUN Creatinine Ratio 18.5 (10-20); Bilirubin,Total 0.5 mg/dl (0.2-1.0); Blood Urea Nitrogen 15 mg/dl (6-23); Calcium 9.8 mg/dl (8.6-10.3); Carbon Dioxide 23 mmol/L (21-32); Chloride 105 mmol/L (98-107); Creatinine Clr Calc Pharmacy 96.8 ml/min; Est GFR (African American) 102.4 ml/min; Est GFR (Non-African American) 88.3 ml/min; Globulin 3.5 gm/dl (2.5-4.0); Glucose 115 mg/dl (70-99(Fasting)); Lipase 23 U/L (11-82); Potassium 4.4 mmol/L (3.5-5.1); Sodium 137 mmol/L (136-145); Total Protein 7.8 gm/dl (6.0-8.3)
[2023-01-18 16:32] LABS: Troponin I High Sensitivity < 2.3 pg/ml (0-14)
[2023-01-18 16:32] LABS: Appearance Urine Turbid (Clear); Bacteria Urine Automated 4+ (Negative); Bilirubin Urine Negative (Negative); Blood Urine Negative (Negative); Color Urine Dark Yellow; Epithelial Cell Urine Auto >30 /lpf (0-5); Glucose Urine UA Negative (Negative); Ketones Urine Negative (Negative); Leukocyte Esterase Urine Negative (Negative); Nitrite Urine Negative (Negative); Protein Urine Negative (Negative); Specific Gravity Urine 1.023 (1.000-1.030); Urobilinogen Urine Negative (Negative); pH Urine 5.5 (4.5-7.5)
[2023-01-18 16:55] LABS: RBC Urine Automated 0-4 /hpf (0-4)
[2023-01-18] MEDS ORDERED: METOCLOPRAMIDE HCL INJ 5 MG/ML 2 ML VIAL IV STA (17:02)
[2023-01-18 17:09] LABS: Anisocytosis Present; Tear Drop Cells 1+
--- NOTE | 2023-01-18 18:04 | History & Physical Report ---
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 Undergoing radiation; last dose 3 days prior to admission. Due to complete radiation next week. Will start Maalox every 6 hours along with lidocaine viscous solution. Protonix IV twice daily Will consult GI for possible endoscopy. Clear liquid diet for now. N.p.o. from midnight. Obtain CT abdomen with IV contrast. Patient reports constipation for several days. Enema Bowel regimen MiraLAX twice daily. Other conditions; Recent PE; CTA from 12/31 shows right lower lobe subsegmental PE. Currently on Lovenox. Received her dose today morning. PCOScontinue on spironolactone ADHDnot on medication presently. DVT prophylaxis Lovenox Full code Time spent evaluating patient, direct bedside care, chart review, placing orders, interpretation of diagnostic studies, discussion with consultants, patient, and family members, as well as other required patient management activities is 75 minutes. Please note the above document was generated using voice recognition software. It may contain grammatical, syntax or spelling errors. Any formal questions or concerns about the content, text or information contained within the body of this dictation should be directly addressed to the provider for clarification History of Present Illness Chief Complaint: Nausea and vomiting for 3 days Odynophagia and dysphagia for 3 days Primary Care Provider: Josue Blake MD History obtained from chart review and interview with the patient. 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 Patient was a started on combined chemotherapy with weekly Paclitaxel and carboplatin , treatment started on 11/19/2022; completed treatment on 01/13/23. Also undergoing radiation for the same. Last dose of radiation on Thursday when she started to have symptoms of dysphagia with solids progressing to liquids. She also has severe retrosternal chest pain. She reports having nausea and vomiting; not able to keep anything down. She denies seeing any blood during the vomitus. She reports that dysphagia symptoms were present during her last admission and has gotten progressively worse since then. Denies fever, chills, abdominal pain. Reports constipation for several days; reports passing had rocklike pellets. On presentation to the ED, patient was afebrile, normotensive and saturating well on room air. Lab work remarkable for mild leukopenia. NA137, potassium4.4 Checks x-ray done in the ED showed right upper lobe mass and mediastinal lymphadenopathy. Patient to be admitted to medical floor for further treatment Allergies Allergy/AdvReac Type Severity Reaction Status Date / Time levofloxacin [From Levaquin] Allergy Severe THROAT Verified 12/31/22 14:16 SWELLS SHUT, ITCHY Penicillins Allergy Severe Anaphylaxis Verified 12/31/22 14:16 clindamycin Allergy Intermediate Rash Verified 12/31/22 14:16 bupropion [From Wellbutrin] AdvReac Severe suicidal Verified 12/31/22 14:16 ideation ANESTHESIA AdvReac Severe FLAT LINES Uncoded 12/31/22 14:16 PLASTIC AdvReac Severe SKIN PEELS Uncoded 12/31/22 14:16 Home Medications Medication Instructions Recorded Confirmed Type spironolactone 100 mg tablet 200 mg PO BID 09/24/19 01/18/23 History (Aldactone) albuterol sulfate 90 mcg/actuation 2 puff inhalation Q4H PRN 09/21/22 01/18/23 History aerosol inhaler (Ventolin HFA) COUGH/SOB/WHEEZING fluticasone propionate 230 2 inh inhalation BID 10/24/22 01/18/23 History mcg-salmeterol 21 mcg/actuation HFA inhaler (Advair HFA) lorazepam 0.5 mg tablet 0.5 mg PO TID PRN Anxiety 10/24/22 01/18/23 History dextroamphetamine-amphetamine 20 See Rx Instructions .Route .COMPLEX 10/29/22 01/18/23 History mg tablet (Adderall) oxycodone 5 mg capsule 5 mg PO Q8H PRN Pain 11/25/22 01/18/23 History Magic Mouthwash 300 mL mouthwash 10 ml mucous membrane ACHS #300 mL 12/04/22 01/18/23 Rx famotidine 10 mg tablet (Acid 10 mg PO BID #60 tabs 12/10/22 01/18/23 Rx Hr Clerk (famotidine)) benzonatate 100 mg capsule 100 mg PO TID PRN cough #60 caps 12/22/22 01/18/23 Rx chlorpromazine 25 mg tablet 25 mg PO Q6H PRN Hiccups 12/31/22 01/18/23 History enoxaparin 100 mg/mL subcutaneous 90 mg (0.9 mL) subcut Q12 30 days 01/04/23 01/18/23 Rx syringe #54 mL hydromorphone 2 mg tablet 0.5 mg PO Q4H PRN pain #7 tabs 01/04/23 01/18/23 Rx (Dilaudid) ondansetron HCl 8 mg tablet 8 mg PO Q8H PRN Other 01/06/23 01/18/23 History sucralfate 1 gram tablet (Carafate) 1 g PO Q6H PRN Other 01/06/23 01/18/23 History morphine 15 mg immediate release 15 mg PO Q4H PRN Other 01/13/23 01/18/23 History tablet Past Med/Surg History Medical History ADHD Asthma Endometriosis of the uterus, unspecified Systemic lupus erythematosus Tobacco abuse Surgical History H/O right wrist surgery H/O tubal ligation H/O: hysterectomy History of cholecystectomy Hx of appendectomy S/P bronchoscopy Family History Mother Cancer Breast Grandmother (Maternal) Cancer Lung Social History Smoking Status: Current every day smoker Tobacco Type: Cigarettes Cigarettes Per Day: has been trying to quit; Second Hand Exposure: Yes; Do You Dip or Chew Tobacco: No; Hx Alcohol Use: No Hx Substance Use: No Preferred Language: Serbian Communication Ability: Effective Visual Impairment: No Limitations Hearing Ability: Normal Private Advisor Required: No Beliefs That Will Affect Care: None marital status: Single Current Living Situation: Family Current Living Situation Comment: engaged current occupational status: unemployed 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 Vomiting. Mouth mucous membrane dry; no plaques or discharge. Neck: trachea midline, no thyromegaly normal visual inspection Respiratory: normal respiratory effort, lungs clear to auscultation, no wheeze, rales, rhonchi. Normal insp/exp effort, no accessory muscle use Cardiovascular: RRR, no murmur, no edema Vessels: no JVD or carotid bruit Chest: Tenderness on palpation of the chest. Abdomen: normal bowel sounds, soft, nontender, no hepatosplenomegaly Musculoskeletal: no cyanosis or clubbing, extremities motor strength 5/5 Skin: no rashes, warm and dry normal turgor Neurologic: PERRL, EOMI, accommodation nl, no face palsy, no dysarthria CN's II- XI intact bilaterally and moves all extremities Psychiatric: A+Ox3, euthymic affect Results & Data Results & Data Vital Signs (Past 12 Hours) Vital Signs Temp Pulse Pulse Resp BP BP Pulse Ox 01/18/23 16:39 108 H 01/18/23 16:10 95 H 20 119/92 95 01/18/23 16:10 89 20 95 01/18/23 15:24 36.4 C L 107 H 16 114/72 97 O2 Del Method 01/18/23 16:39 01/18/23 16:10 Room Air 01/18/23 16:10 Room Air 01/18/23 15:24 Room Air Laboratory Results Laboratory Results WBC 3.32 K/ul (4.8-10.8) L 01/18/23 15:40 RBC 3.30 M/uL (4.20-5.40) L 01/18/23 15:40 Hgb 12.2 g/dl (12.0-16.0) 01/18/23 15:40 Hct 33.2 % (37.0-47.0) L 01/18/23 15:40 MCV 100.6 fL (80.0-100.0) H 01/18/23 15:40 MCH 37.0 pg (25.0-34.0) H 01/18/23 15:40 MCHC 36.7 g/dL (32.0-36.0) H 01/18/23 15:40 RDW Std Deviation 73.5 fL (36.4-46.3) H 01/18/23 15:40 RDW Coeff of Saritha 20.4 % (11.5-14.5) H 01/18/23 15:40 Plt Count 212 K/uL (130-400) 01/18/23 15:40 MPV 9.9 fL (9.4-12.4) 01/18/23 15:40 Immature Gran % (Auto) 1.5 % 01/18/23 15:40 Neut % (Auto) 75.3 % 01/18/23 15:40 Lymph % (Auto) 17.5 % 01/18/23 15:40 [place] % (Auto) 5.4 % 01/18/23 15:40 Eos % (Auto) 0.0 % 01/18/23 15:40 Baso % (Auto) 0.3 % 01/18/23 15:40 Neut # (Auto) 2.50 K/uL (1.40-6.50) 01/18/23 15:40 Lymph # (Auto) 0.58 K/uL (1.2-3.4) L 01/18/23 15:40 [place] # (Auto) 0.18 K/uL (0.11-0.59) 01/18/23 15:40 Eos # (Auto) 0.00 K/uL (0-0.50) 01/18/23 15:40 Baso # (Auto) 0.01 K/uL (0-0.2) 01/18/23 15:40 Immature Gran # (Auto) 0.05 K/uL (0.01-0.20) 01/18/23 15:40 Anisocytosis Present 01/18/23 15:40 Tear Drop Cells 1+ 01/18/23 15:40 Sodium 137 mmol/L (136-145) 01/18/23 15:40 Potassium 4.4 mmol/L (3.5-5.1) 01/18/23 15:40 Chloride 105 mmol/L (98-107) 01/18/23 15:40 Carbon Dioxide 23 mmol/L (21-32) 01/18/23 15:40 Anion Gap 9 (3-11) 01/18/23 15:40 BUN 15 mg/dl (6-23) 01/18/23 15:40 Creatinine 0.81 mg/dl (0.6-1.2) 01/18/23 15:40 Est Cr Clr Drug Dosing 96.8 ml/min 01/18/23 15:40 Est GFR ( Amer) 102.4 ml/min 01/18/23 15:40 Est GFR (Non-Af Amer) 88.3 ml/min 01/18/23 15:40 BUN/Creatinine Ratio 18.5 (10-20) 01/18/23 15:40 Glucose 115 mg/dl (70-99(Fasting)) H 01/18/23 15:40 Calcium 9.8 mg/dl (8.6-10.3) 01/18/23 15:40 Total Bilirubin 0.5 mg/dl (0.2-1.0) 01/18/23 15:40 AST 10 U/L (13-39) L 01/18/23 15:40 ALT 15 U/L (7-52) 01/18/23 15:40 Alkaline Phosphatase 75 U/L (34-104) 01/18/23 15:40 Troponin I High Sens < 2.3 pg/ml (0-14) 01/18/23 15:40 Total Protein 7.8 gm/dl (6.0-8.3) 01/18/23 15:40 Albumin 4.3 gm/dl (3.4-5.0) 01/18/23 15:40 Globulin 3.5 gm/dl (2.5-4.0) 01/18/23 15:40 Albumin/Globulin Ratio 1.2 (0.9-2) 01/18/23 15:40 Lipase 23 U/L (11-82) 01/18/23 15:40 Urine Color Dark Yellow 01/18/23 15:48 Urine Appearance Turbid (Clear) A 01/18/23 15:48 Urine pH 5.5 (4.5-7.5) 01/18/23 15:48 Ur Specific [place] 1.023 (1.000-1.030) 01/18/23 15:48 Urine Protein Negative (Negative) 01/18/23 15:48 Urine Glucose (UA) Negative (Negative) 01/18/23 15:48 Urine Ketones Negative (Negative) 01/18/23 15:48 Urine Blood Negative (Negative) 01/18/23 15:48 Urine Nitrite Negative (Negative) 01/18/23 15:48 Urine Bilirubin Negative (Negative) 01/18/23 15:48 Urine Urobilinogen Negative (Negative) 01/18/23 15:48 Ur Leukocyte Esterase Negative (Negative) 01/18/23 15:48 Urine WBC (Auto) 1-5 /hpf (0-5) 01/18/23 15:48 Urine RBC (Auto) 0-4 /hpf (0-4) 01/18/23 15:48 U Hyaline Cast (Auto) 1-5 /lpf (0-5) 01/18/23 15:48 U Epithel Cells (Auto) >30 /lpf (0-5) H 01/18/23 15:48 Urine Bacteria (Auto) 4+ (Negative) H 01/18/23 15:48 SARS-CoV-2, RNA, NAAT NEGATIVE (NEGATIVE) 01/18/23 16:08 Impressions Chest X-Ray 01/18/23 15:39 XR chest 1V portable CLINICAL HISTORY: Atypical chest pain. COMPARISON STUDY: Chest radiograph and chest CT January 05, 2023 FINDINGS: Right internal jugular [id number] remains in place. There is no pneumothorax or pleural effusion. There is no consolidation to suggest pneumonia. Right upper lobe mass measuring approximately 3.3 cm is again noted. This appears similar to chest radiograph January 05, 2023 but decreased in size from earlier exams. Mediastinal lymphadenopathy is better depicted on prior chest CT. The appearance of the chest is unchanged. No evidence for pulmonary edema. IMPRESSION: 1. No acute cardiopulmonary findings. 2. Right upper lobe mass and mediastinal lymphadenopathy better depicted on prior chest CT. ACT 112: Negative or not required by law. Electronically signed by: Dewey Reza M.D. 01/18/2023 4:19 PM
[2023-01-18] MEDS ORDERED: SOD PHOSPHATE/SOD BIPHOSPHATE ENEMA 132 ML BTL PR STA (19:37)
[2023-01-18] MEDS ORDERED: ONDANSETRON INJ 2 MG/ML 2 ML VIAL IV PRN (19:37)
[2023-01-18] MEDS ORDERED: ALUMINUM/MAGNESIUM SUSP 30 ML UDC PO SCH (20:00)
[2023-01-18] MEDS ORDERED: OPTIRAY 320 100ml IV ONE (20:20)
[2023-01-18] MEDS: ENOXAPARIN 100 MG/1ML SYR SQ SCH (21:03)
[2023-01-18] MEDS: PANTOprazole 40 MG in SYRINGE 0 ML IV SCH (21:04)
[2023-01-18] MEDS: POLYETHYLENE (MIRALAX) 17 GM PACK PO SCH (21:04)
[2023-01-18] MEDS: SPIRONOLACTONE 100 MG TAB PO SCH (21:05)
--- NOTE | 2023-01-18 21:16 | CT Scan Report ---
Exam(s): CT ABDOMEN IV Amt: 92 ml optiray 320 EXAM: CT Abdomen With Intravenous Contrast CLINICAL HISTORY: Nausea and vomiting, Constipation. TECHNIQUE: Axial computed tomography images of the abdomen with intravenous contrast. CTDI is 28.28 mGy and DLP is 930.45 mGy-cm. Automated exposure control was utilized for the study. A dose lowering technique was utilized adhering to the principles of ALARA. CONTRAST: Patient received 92 ml optiray 320 of IV contrast COMPARISON: No relevant prior studies available. FINDINGS: Lung bases: Subsegmental peripheral ground-glass changes in the left lower lobe. No lobar consolidation. Liver: Unremarkable. No mass. Gallbladder and bile ducts: Cholecystectomy. No ductal dilation. Pancreas: Unremarkable. No mass. No ductal dilation. Spleen: Unremarkable. No splenomegaly. Adrenals: Unremarkable. No mass. Kidneys and ureters: Unremarkable. No solid mass. No hydronephrosis. Stomach and bowel: The stomach is mildly filled with oral contents, fluid and gas. No gastric mucosal thickening. The bowel loops in the abdomen demonstrate no evidence for bowel obstruction. No obvious bowel mucosal asymmetry noted. The included portions of the colon demonstrate mild to moderate stool burden. Intraperitoneal space: Unremarkable. No free air. No significant fluid collection. Bones/joints: No acute fracture. No dislocation. Soft tissues: Unremarkable. Vasculature: Unremarkable. No abdominal aortic aneurysm. Lymph nodes: Unremarkable. No enlarged lymph nodes. IMPRESSION: No significant abnormality identified within the abdomen. Electronically signed by: Miguelangel Jaramillo MD 01/18/23 21:15 PM
[2023-01-18] MEDS: MAGNESIUM HYDROXIDE SUSP 30 ML UDC PO SCH (21:18)
[2023-01-18] MEDS: LIDOCAINE VISCOUS 2% 15 ML UDC MT SCH (21:18)
[2023-01-18] MEDS: D5W AND NSS 1,000 ML IV SCH (21:22)
[2023-01-18] MEDS: HYDROmorphone INJ 1 MG/ML SYRINGE IV PRN (22:25)
[2023-01-19] MEDS: BENZONATATE 100 MG CAPSULE PO PRN ×2 (00:47→12:15)
[2023-01-19] MEDS: MoRPHine SULFATE IR 15 MG TAB (IMMEDIATE RELEASE) PO PRN ×2 (00:47→23:30)
[2023-01-19] MEDS: HYDROmorphone INJ 1 MG/ML SYRINGE IV PRN (01:43)
[2023-01-19] MEDS: LIDOCAINE VISCOUS 2% 15 ML UDC MT SCH ×4 (01:44→21:57)
[2023-01-19] MEDS: MAGNESIUM HYDROXIDE SUSP 30 ML UDC PO SCH ×4 (01:44→21:57)
[2023-01-19] MEDS: LORazepam 0.5 MG TAB PO PRN ×3 (03:18→21:58)
[2023-01-19] MEDS: HYDROmorphone INJ 0.5 MG/0.5 ML SYR IV PRN ×5 (06:14→21:58)
[2023-01-19] MEDS ORDERED: SOD PHOSPHATE/SOD BIPHOSPHATE ENEMA 132 ML BTL PR ONE (06:28)
[2023-01-19] MEDS ORDERED: Nursing to Pharmacy Communication SCH (06:30)
[2023-01-19] MEDS: POLYETHYLENE (MIRALAX) 17 GM PACK PO SCH ×2 (07:55→21:58)
[2023-01-19] MEDS: PANTOprazole 40 MG in SYRINGE 0 ML IV SCH (07:55)
[2023-01-19] MEDS: ENOXAPARIN 100 MG/1ML SYR SQ SCH ×2 (07:56→21:57)
[2023-01-19] MEDS: SPIRONOLACTONE 100 MG TAB PO SCH ×2 (07:57→21:55)
[2023-01-19] MEDS: D5W AND NSS 1,000 ML IV SCH (08:03)
--- NOTE | 2023-01-19 08:51 | Gastrointestinal Consultation ---
Date of Consultation January 19, 2023 Assessment & Plan (1) Dysphagia: Likely secondary to radiation esophagitis (2) Vomiting: Likely side effect of Chemotherapy. Pt also has a friend w gastroparesis and she believes she has similar symptoms, even prior to chemotherapy. Plan 1. EGD by Dr. Concha Jeffries today. 2. OP GI f/u for pts concerns regarding constipation and ?gastroparesis. Our office will contact her to arrange. Supervising Physician Co-Signing Physician Notes I saw and evaluated the patient. The patient presented with a history of difficulty with swallowing and pain with swallowing. Of note the patient has both on chemo and radiation therapy for history of lung cancer. The patient describes having difficulty with swallowing meats and breads. Physical examination No Obvious distress no scleral icterus Impression: Patient with a history of dysphagia and odynophagia on radiation therapy. We are certainly happy to provide endoscopic evaluation for further assessment. I suspect that her symptoms are likely related to ongoing we discussed risks and benefits of the procedure to include bleeding infection perforation and potential need for repeat esophageal dilations in the future. History of Present Illness Reason for Consultation: Dysphagia Requesting Physician: Dr. Shultz Attending Physician: Teofilo Shultz MD History of Present Illness Ms. Ritchie Suazo is a 42 yr old female pt of Dr. Lou michael a hx of Lupus, pseudocholinesterase deficiency, ADHD, right upper lobe adenocarcinoma with mediastinal lymph nodes (T2b, N2, M0) recent PE on Lovenox, just completed weekly Paclitaxel/carboplatin undergoing radiation w 4 more tx planned. She has had dysphagia for a few weeks, also vomiting about 2x/week after chemo. Last Thursday her dysphagia worsened and she has been unable to swallow pills, foods or liquids since that time. She can swallow her saliva. Allergies Allergy/AdvReac Type Severity Reaction Status Date / Time levofloxacin [From Levaquin] Allergy Severe THROAT Verified 12/31/22 14:16 SWELLS SHUT, ITCHY Penicillins Allergy Severe Anaphylaxis Verified 12/31/22 14:16 clindamycin Allergy Intermediate Rash Verified 12/31/22 14:16 bupropion [From Wellbutrin] AdvReac Severe suicidal Verified 12/31/22 14:16 ideation ANESTHESIA AdvReac Severe FLAT LINES Uncoded 12/31/22 14:16 PLASTIC AdvReac Severe SKIN PEELS Uncoded 12/31/22 14:16 Home Medications Medication Instructions Recorded Confirmed Type spironolactone 100 mg tablet 200 mg PO BID 09/24/19 01/18/23 History (Aldactone) albuterol sulfate 90 mcg/actuation 2 puff inhalation Q4H PRN 09/21/22 01/18/23 History aerosol inhaler (Ventolin HFA) COUGH/SOB/WHEEZING fluticasone propionate 230 2 inh inhalation BID 10/24/22 01/18/23 History mcg-salmeterol 21 mcg/actuation HFA inhaler (Advair HFA) lorazepam 0.5 mg tablet 0.5 mg PO TID PRN Anxiety 10/24/22 01/18/23 History dextroamphetamine-amphetamine 20 See Rx Instructions .Route .COMPLEX 10/29/22 0 01/18/23 History mg tablet (Adderall) oxycodone 5 mg capsule 5 mg PO Q8H PRN Pain 11/25/22 01/18/23 History Magic Mouthwash 300 mL mouthwash 10 ml mucous membrane ACHS #300 mL 12/04/22 01/18/23 Rx famotidine 10 mg tablet (Acid 10 mg PO BID #60 tabs 12/10/22 01/18/23 Rx Steam Press Operator (famotidine)) benzonatate 100 mg capsule 100 mg PO TID PRN cough #60 caps 12/22/22 01/18/23 Rx chlorpromazine 25 mg tablet 25 mg PO Q6H PRN Hiccups 12/31/22 01/18/23 History enoxaparin 100 mg/mL subcutaneous 90 mg (0.9 mL) subcut Q12 30 days 01/04/23 01/18/23 Rx syringe #54 mL hydromorphone 2 mg tablet 0.5 mg PO Q4H PRN pain #7 tabs 01/04/23 01/18/23 Rx (Dilaudid) ondansetron HCl 8 mg tablet 8 mg PO Q8H PRN Other 01/06/23 01/18/23 History sucralfate 1 gram tablet (Carafate) 1 g PO Q6H PRN Other 01/06/23 01/18/23 History morphine 15 mg immediate release 15 mg PO Q4H PRN Other 01/13/23 01/18/23 History tablet Patient History Medical History (Updated 01/19/23 @ 09:16 by Stephen Moreno MD) ADHD Asthma Encounter for pre-operative examination Endometriosis of the uterus, unspecified Primary adenocarcinoma of upper lobe of right lung (10/03/22) Systemic lupus erythematosus Tobacco abuse Surgical History H/O right wrist surgery H/O tubal ligation H/O: hysterectomy History of cholecystectomy Hx of appendectomy S/P bronchoscopy Family History Mother Cancer Breast Grandmother (Maternal) Cancer Lung Social History Smoking Status: Current every day smoker Tobacco Type: Cigarettes Cigarettes Per Day: 1/2 pack daily; Second Hand Exposure: Yes; Do You Dip or Chew Tobacco: No; Hx Alcohol Use: No Hx Substance Use: No Preferred Language: Cameroonian Communication Ability: Effective Visual Impairment: No Limitations Hearing Ability: Normal Application Support Developer Required: No Beliefs That Will Affect Care: None marital status: Single Current Living Situation: Spouse and Family Current Living Situation Comment: engaged current occupational status: unemployed 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 No palpitations/irregular beats GI: + c/o constipation; + c/o vomiting foods that she ate hours/a day previously. ++N/v after chem. No abdominal pain : Denies pain on urination Skin: Splotchy red rash on her chest from lupus - no new rashes, no jaundice, itching Physical Exam Physical Exam: Constitutional: Awake, alert orient x3 Neck: trachea midline, no thyromegaly normal visual inspection Respiratory: normal respiratory effort, lungs clear to auscultation, no wheeze, rales, rhonchi. Normal insp/exp effort, no accessory muscle use Cardiovascular: RRR, no murmur, no edema Vessels: no JVD or carotid bruit Abdomen: hypoactive BS, soft, nontender, non distended, no hepatosplenomegaly Musculoskeletal: no cyanosis or clubbing, extremities motor strength 5/5 Skin: splotchy red rash on the chest, otherwise no rashes, warm and dry normal turgor Neurologic: PERRL, EOMI, accommodation nl, no face palsy, no dysarthria CN's II- XI intact bilaterally and moves all extremities Psychiatric: A+Ox3, euthymic affect Results & Data Vital Signs (Past 12 Hours) Vital Signs Temp Pulse Pulse Resp BP BP Pulse Ox 01/18/23 22:14 36.8 C 79 128/89 97 01/19/23 07:00 36.5 C 89 18 94/63 L 93 01/19/23 07:16 84 01/19/23 06:13 104/60 01/19/23 03:02 36.5 C 79 18 96/58 L 99 01/19/23 00:00 96 H 01/18/23 23:09 36.6 C 104 H 18 116/74 95 O2 Del Method O2 Flow Rate 01/18/23 22:14 01/19/23 07:00 Room Air 01/19/23 07:16 01/19/23 06:13 01/19/23 03:02 Nasal Cannula 2 01/19/23 00:00 01/18/23 23:09 Room Air Laboratory Results WBC 3.3, Hb 12.2, Hcy 33.2, Plts 2121, Na 137, K 4.4, Cl 105, Co2 23, BUn 9, Cr 15, glucose 81. Diagnostic Findings CTAP w IV 01/18/23: No significant abnormality identified within the abdomen.
[2023-01-19 09:05] LABS: Hematocrit (blood only) 28.6 % (37.0-47.0); Hemoglobin 10.1 g/dl (12.0-16.0); Mean Corpuscular Hemoglobin 36.2 pg (25.0-34.0); Mean Corpuscular Hgb Conc 35.3 g/dL (32.0-36.0); Mean Corpuscular Volume 102.5 fL (80.0-100.0); Mean Platelet Volume 9.6 fL (9.4-12.4); Platelet Count 164 K/uL (130-400); RDW Coefficient of Variation 20.7 % (11.5-14.5); RDW Standard Deviation 76.1 fL (36.4-46.3); Red Blood Count 2.79 M/uL (4.20-5.40); White Blood Count 2.51 K/ul (4.8-10.8)
--- NOTE | 2023-01-19 09:08 | Anesthesiology Consultation ---
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 Consults Requested none History Surgery Operation Date: 01/19/23 17:00 Proposed Procedures p Esophagogastroduodenoscopy Dr Mervin Jeffries, DO Height/Weight Height: 5 ft 5 in Weight: 87.4 kg Allergies Allergy/AdvReac Type Severity Reaction Status Date / Time levofloxacin [From Levaquin] Allergy Severe THROAT Verified 12/31/22 14:16 SWELLS SHUT, ITCHY Penicillins Allergy Severe Anaphylaxis Verified 12/31/22 14:16 clindamycin Allergy Intermediate Rash Verified 12/31/22 14:16 bupropion [From Wellbutrin] AdvReac Severe suicidal Verified 12/31/22 14:16 ideation ANESTHESIA AdvReac Severe FLAT LINES Uncoded 12/31/22 14:16 PLASTIC AdvReac Severe SKIN PEELS Uncoded 12/31/22 14:16 Medications Home Medications Medication Instructions Recorded Confirmed Last Taken spironolactone 100 mg tablet 200 mg PO BID 09/24/19 01/18/23 10/24/22 (Aldactone) albuterol sulfate 90 mcg/actuation 2 puff inhalation Q4H PRN 09/21/22 01/18/23 Unknown aerosol inhaler (Ventolin HFA) COUGH/SOB/WHEEZING fluticasone propionate 230 2 inh inhalation BID 10/24/22 01/18/23 10/24/22 mcg-salmeterol 21 mcg/actuation HFA inhaler (Advair HFA) lorazepam 0.5 mg tablet 0.5 mg PO TID PRN Anxiety 10/24/22 01/18/23 Unknown dextroamphetamine-amphetamine 20 See Rx Instructions .Route .COMPLEX 10/29/22 01/18/23 Unknown mg tablet (Adderall) oxycodone 5 mg capsule 5 mg PO Q8H PRN Pain 11/25/22 01/18/23 Unknown Magic Mouthwash 300 mL mouthwash 10 ml mucous membrane ACHS #300 mL 12/04/22 01/18/23 Unknown famotidine 10 mg tablet (Acid 10 mg PO BID #60 tabs 12/10/22 01/18/23 Unknown 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 Machine 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 (famotidine)) benzonatate 100 mg capsule 100 mg PO TID PRN cough #60 caps 12/22/22 01/18/23 Unknown chlorpromazine 25 mg tablet 25 mg PO Q6H PRN Hiccups 12/31/22 01/18/23 Unknown enoxaparin 100 mg/mL subcutaneous 90 mg (0.9 mL) subcut Q12 30 days 01/04/23 01/18/23 Unknown syringe #54 mL hydromorphone 2 mg tablet 0.5 mg PO Q4H PRN pain #7 tabs 01/04/23 01/18/23 Unknown (Dilaudid) ondansetron HCl 8 mg tablet 8 mg PO Q8H PRN Other 01/06/23 01/18/23 Unknown sucralfate 1 gram tablet (Carafate) 1 g PO Q6H PRN Other 01/06/23 01/18/23 Unknown morphine 15 mg immediate release 15 mg PO Q4H PRN Other 01/13/23 01/18/23 Unknown tablet Active Medications Generic Name Dose Route Start Last Admin Trade Name Freq PRN Reason Stop Dose Admin Benzonatate 100 mg 01/19/23 00:42 01/19/23 00:47 Benzonatate 100 Mg Capsule PO 02/18/23 00:41 100 mg TID PRN Administration Cough Enoxaparin Sodium 90 mg 01/18/23 21:00 01/19/23 07:56 Enoxaparin 100 Mg/1ml Syr SQ 02/17/23 20:59 90 mg Q12 MATI Administration Hydromorphone HCl 0.5 mg 01/19/23 04:13 01/19/23 06:14 Hydromorphone Inj 0.5 Mg/0.5 Ml Syr IV 02/02/23 04:12 0.5 mg Q3H PRN Administration Pain Pantoprazole Sodium 40 mg/ 10 mls @ 5 mls/min 01/18/23 21:00 01/19/23 07:55 Syringe IV 02/17/23 20:59 5 mls/min BID MATI Administration Dextrose/Sodium Chloride 1,000 mls @ 80 mls/hr 01/18/23 19:45 01/19/23 08:03 D5w And Nss IV 02/17/23 19:44 80 mls/hr .[id number] MATI Administration Lidocaine HCl 15 ml 01/18/23 20:00 01/19/23 07:55 Lidocaine Viscous 2% 15 Ml Udc MT 02/17/23 19:59 15 ml Q6H MATI Administration Lorazepam 0.5 mg 01/18/23 19:37 01/19/23 03:18 Lorazepam 0.5 Mg Tab PO 02/17/23 19:36 0.5 mg TID PRN Administration Anxiety Magnesium Hydroxide 30 ml 01/18/23 21:00 01/19/23 07:55 Magnesium Hydroxide Susp 30 Ml Udc PO 02/17/23 20:59 30 ml Q6H MATI Administration Morphine Sulfate 15 mg 01/18/23 19:37 01/19/23 00:47 Morphine Sulfate Ir 15 Mg Tab (Immediate Release) PO 02/01/23 19:36 15 mg Q4H PRN Administration Pain Polyethylene Glycol 17 gm 01/18/23 21:00 01/19/23 07:55 Polyethylene (Miralax) 17 Gm Pack PO 02/17/23 20:59 17 gm BID MATI Administration Spironolactone 200 mg 01/18/23 21:00 01/19/23 07:57 Spironolactone 100 Mg Tab PO 02/17/23 20:59 200 mg BID MATI Administration Past Medical History Medical History (Updated 01/19/23 @ 09:10 by Stephen Moreno MD) ADHD Asthma Encounter for pre-operative examination Endometriosis of the uterus, unspecified Systemic lupus erythematosus Tobacco abuse Past Family History Family History Mother Cancer Breast Grandmother (Maternal) Cancer Lung Past Surgical History Surgical History H/O right wrist surgery H/O tubal ligation H/O: hysterectomy History of cholecystectomy Hx of appendectomy S/P bronchoscopy Social History Smoking Status: Current every day smoker tobacco type: cigarettes Smoking cigarettes per day: 1/2 pack daily Do You Dip or Chew Tobacco: No Hx Alcohol Use: No Hx Substance Use: No substance use type: does not use Physical Exam Vital Signs Last Vital Signs Temp 36.5 C 01/19/23 07:00 Pulse 84 01/19/23 07:16 Resp 18 01/19/23 07:00 BP 94/63 L 01/19/23 07:00 Pulse Ox 93 01/19/23 07:00 O2 Del Method Room Air 01/19/23 07:00 O2 Flow Rate 2 01/19/23 03:02 Testing Laboratory Results 01/19/23 08:34 Urine Color Dark Yellow 01/18/23 15:48 Urine Appearance Turbid (Clear) A 01/18/23 15:48 Urine pH 5.5 (4.5-7.5) 01/18/23 15:48 Ur Specific [place] 1.023 (1.000-1.030) 01/18/23 15:48 Urine Protein Negative (Negative) 01/18/23 15:48 Urine Glucose (UA) Negative (Negative) 01/18/23 15:48 Urine Ketones Negative (Negative) 01/18/23 15:48 Urine Nitrite Negative (Negative) 01/18/23 15:48 Ur Leukocyte Esterase Negative (Negative) 01/18/23 15:48 Urine WBC (Auto) 1-5 /hpf (0-5) 01/18/23 15:48 Urine RBC (Auto) 0-4 /hpf (0-4) 01/18/23 15:48 U Hyaline Cast (Auto) 1-5 /lpf (0-5) 01/18/23 15:48 U Epithel Cells (Auto) >30 /lpf (0-5) H 01/18/23 15:48 Urine Bacteria (Auto) 4+ (Negative) H 01/18/23 15:48 Electrocardiogram Date: 01/18/23 Sinus tachycardia with frequent Premature ventricular complexes Possible Left atrial enlargement Nonspecific ST abnormality Abnormal ECG When compared with ECG of 05-JAN-2023 09:02, Nonspecific T wave abnormality, improved in Anterior leads 25mm/s10mm/[id number] 243CID: 20Referred by: REFERRED SELF Unconfirmed Vent. rate 114 BPM OR interval 126 ms QRS duration 76 ms QT/QTc 334/460 ms P Chest X-Ray Date: 01/18/23 XR chest 1V portable CLINICAL HISTORY: Atypical chest pain. COMPARISON STUDY: Chest radiograph and chest CT January 05, 2023 FINDINGS: Right internal jugular [id number] remains in place. There is no pneumothorax or pleural effusion. There is no consolidation to suggest pneumonia. Right upper lobe mass measuring approximately 3.3 cm is again noted. This appears similar to chest radiograph January 05, 2023 but decreased in size from earlier exams. Mediastinal lymphadenopathy is better depicted on prior chest CT. The appearance of the chest is unchanged. No evidence for pulmonary edema. IMPRESSION: 1. No acute cardiopulmonary findings. 2. Right upper lobe mass and mediastinal lymphadenopathy better depicted on prio r chest CT. Echocardiogram Date: 12/31/22 EF: 55-60% LV Function: normal RWMA: + none Other Findings: + LVH (mild)
[2023-01-19 09:22] LABS: Albumin Level 3.6 gm/dl (3.4-5.0); Bilirubin,Total 0.5 mg/dl (0.2-1.0); Calcium 8.6 mg/dl (8.6-10.3); Potassium 3.6 mmol/L (3.5-5.1)
[2023-01-19 09:25] LABS: Anisocytosis Present; Eosinophils # (auto) 0.02 K/uL (0-0.50); Eosinophils % (auto) 0.8 %; Immature Granulocytes # (auto) 0.03 K/uL (0.01-0.20); Immature Granulocytes % (auto) 1.2 %; Lymphocytes # (auto) 0.79 K/uL (1.2-3.4); Lymphocytes % (auto) 31.5 %; Monocytes # (auto) 0.25 K/uL (0.11-0.59); Neutrophils # (auto) 1.42 K/uL (1.40-6.50); Neutrophils % (auto) 56.5 %; Polychromasia 1+
[2023-01-19 09:28] LABS: Albumin Globulin Ratio 1.2 (0.9-2); BUN Creatinine Ratio 18.8 (10-20); Est GFR (African American) 103.9 ml/min; Est GFR (Non-African American) 89.7 ml/min; Globulin 2.9 gm/dl (2.5-4.0); Total Protein 6.5 gm/dl (6.0-8.3)
[2023-01-19] MEDS ORDERED: PROPOFOL IV EMULSION 10 MG/ML 20 ML VIAL IV ONE ×2 (09:30→09:55)
[2023-01-19] MEDS ORDERED: LIDOCAINE 2% 2 ML VIAL/AMP(20MG/ML) INFIL ONE (09:30)
[2023-01-19] MEDS ORDERED: fentaNYL citrate PF 100 MCG/2 ML VIAL ONE (09:34)
[2023-01-19] MEDS ORDERED: HEPARIN 100 UNIT/ML 5ML FLUSH ONE (09:36)
--- NOTE | 2023-01-19 09:56 | Communication Note ---
Date of Service: January 19, 2023 The patient underwent upper endoscopy today for evaluation of a dyne aphasia and dysphagia. She was found to have an ulcer in the midportion of the esophagus is consistent with her ongoing radiation therapy. We did perform dilation to 51 Divehi today. Recommendations Mechanical soft diet for 4 to 6 weeks Protonix 40 mg 1 time daily Carafate slurry 4 times daily for 4 weeks Surveillance upper endoscopy in 3 months Please call with any questions or concerns
--- NOTE | 2023-01-19 10:00 | GI REPORT ---
Patient Name: Ritchie Suazo Procedure Date: 01/19/2023 9:30 AM Date of : 1980 Admit Type: Inpatient Age: 42 Gender: Female Attending MD: Concha Jeffries DO, Procedure: Upper GI endoscopy Providers: Concha Jeffries DO Referring MD: Teofilo Shultz Md Indications: Dysphagia, Odynophagia Medicines: Monitored Anesthesia Care Complications: No immediate complications. Estimated blood loss: Minimal. Estimated Blood Loss: Estimated blood loss was minimal. Procedure: Pre-Anesthesia Assessment: - Prior to the procedure, a History and Physical was performed, and patient medications, allergies and sensitivities were reviewed. The patient's tolerance of previous anesthesia was reviewed. - The risks and benefits of the procedure and the sedation options and risks were discussed with the patient. All questions were answered and informed consent was obtained. - Patient identification and proposed procedure were verified prior to the procedure by the physician, the nurse and the investor relations director. The procedure was verified in the procedure room. - Pre-procedure physical examination revealed no contraindications to sedation. - ASA Grade Assessment: III - A patient with severe systemic disease. - After reviewing the risks and benefits, the patient was deemed in satisfactory condition to undergo the procedure. - The anesthesia plan was to use monitored anesthesia care (MAC). - Immediately prior to administration of medications, the patient was re-assessed for adequacy to receive sedatives. - The heart rate, respiratory rate, oxygen saturations, blood pressure, adequacy of pulmonary ventilation, and response to care were monitored throughout the procedure. - The physical status of the patient was re-assessed after the procedure. After obtaining informed consent, the endoscope was passed under direct vision. Throughout the procedure, the patient's blood pressure, pulse, and oxygen saturations were monitored continuously. The Endoscope was introduced through the mouth, and advanced to the third part of duodenum. The upper GI endoscopy was accomplished without difficulty. The patient tolerated the procedure well. Findings: One superficial esophageal ulcer with no bleeding and no stigmata of recent bleeding was found 20 to 23 cm from the incisors. The lesion was 10 mm in largest dimension. A guidewire was placed and the scope was withdrawn. Dilation was performed with a Savary dilator with no resistance at 42 Fr, 45 Fr, 48 Fr and 51 Fr. The endoscope was then reinserted to evaluate the success of the procedure in between each dilator size Estimated blood loss: none. The Z-line was regular and was found 35 cm from the incisors. The entire examined stomach was normal. The examined duodenum was normal. Impression: - Esophageal ulcer with no bleeding and no stigmata of recent bleeding (related to ongoin radiation therapy). Dilated to 51 Fr. - Z-line regular, 35 cm from the incisors. - Normal stomach. - Normal examined duodenum. - No specimens collected. Recommendation: - Return patient to [facility] for ongoing care. - Use Protonix (pantoprazole) 40 mg PO daily for 3 months. - Use sucralfate suspension 1 gram PO QID for 4 weeks. - Mechanical soft diet. - Repeat upper endoscopy in 3 months to check healing. Concha Jeffries D.O. Concha Jeffries, 01/19/2023 10:00:22 AM This report has been signed electronically. Note Initiated On: 01/19/2023 9:30 AM Number of Addenda: 0 I attest to the content of the Intraoperative Record and orders documented therein, exceptions below {[id number]}
--- NOTE | 2023-01-19 11:16 | Electrocardiogram Report ---
Test Reason : Blood Pressure : / mmHG Vent. Rate : 114 BPM Atrial Rate : 114 BPM P-R Int : 126 ms QRS Dur : 076 ms QT Int : 334 ms P-R-T Axes : 054 -08 005 degrees QTc Int : 460 ms Sinus tachycardia with frequent Premature ventricular complexes Left atrial enlargement Diffuse Minor Nonspecific T wave abnormality Abnormal ECG When compared with ECG of 05-JAN-2023 09:02, No significant change Confirmed by Josue Ortega ([id number]) on 01/19/2023 11:16:07 AM Referred By: REFERRED SELF Confirmed By:Josue Ortega
--- NOTE | 2023-01-19 11:27 | Anesthesiology Progress Note ---
Date of Service January 19, 2023 Anesthesia Post Procedure Vital Signs Vital Signs: Temp Pulse Pulse Resp BP BP Pulse Ox 01/18/23 22:14 36.8 C 79 128/89 97 01/19/23 11:00 36.3 C L 78 18 93/65 L 99 01/19/23 10:29 75 18 93/72 L 100 01/19/23 10:14 78 16 92/65 L 94 01/19/23 09:59 90 16 93/70 L 95 01/19/23 09:09 36.8 C 83 16 127/89 98 01/19/23 07:00 36.5 C 89 18 94/63 L 93 01/19/23 07:16 84 01/19/23 06:13 104/60 01/19/23 03:02 36.5 C 79 18 96/58 L 99 01/19/23 00:00 96 H 01/18/23 19:37 99 H 01/18/23 23:09 36.6 C 104 H 18 116/74 95 01/18/23 20:00 01/18/23 19:37 36.8 C 79 128/89 97 01/18/23 18:29 98 H 20 101/77 96 01/18/23 18:00 100 H 20 98/75 L 92 01/18/23 16:39 108 H 01/18/23 16:10 95 H 20 119/92 95 01/18/23 16:10 89 20 95 01/18/23 15:24 36.4 C L 107 H 16 114/72 97 O2 Del Method O2 Flow Rate 01/18/23 22:14 01/19/23 11:00 Room Air 01/19/23 10:29 Oxymask 3 01/19/23 10:14 Room Air 01/19/23 09:59 Room Air 01/19/23 09:09 Room Air 01/19/23 07:00 Room Air 01/19/23 07:16 01/19/23 06:13 01/19/23 03:02 Nasal Cannula 2 01/19/23 00:00 01/18/23 19:37 01/18/23 23:09 Room Air 01/18/23 20:00 Room Air 01/18/23 19:37 Room Air 01/18/23 18:29 Room Air 01/18/23 18:00 Room Air 01/18/23 16:39 01/18/23 16:10 Room Air 01/18/23 16:10 Room Air 01/18/23 15:24 Room Air Pain Intensity Throat: Pain Intensity: 8 Transfer of Care Handoff Completed per policy Notes Mental Status: alert / awake / arousable and participated in evaluation Patient Amnestic to Procedure: Yes Nausea / Vomiting: adequately controlled Pain: adequately controlled Airway Patency, RR, SpO2: stable & adequate BP & HR: stable & adequate Hydration State: stable & adequate Anesthetic Complications: no major complications apparent
[2023-01-19] MEDS: SUCRALFATE 1 GM/10 ML UDC PO SCH ×3 (11:49→21:57)
[2023-01-19] MEDS: FIRST - Mouthwash BLM 119 ML PO SCH ×3 (13:34→23:36)
--- NOTE | 2023-01-19 14:44 | Hospitalist Progress Note ---
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 Undergoing radiation; last dose 3 days prior to admission. Due for [address] abdomen with IV contrast personally reviewedno acute finding. Underwent endoscopy on 01/19-esophageal ulcer with no bleeding and no stigmata of recent bleeding. Dilation performed. Continue Protonix 40 mg daily for 3 months Sucralfate 1 g p.o. 4 times daily for 4 weeks MiraLAX, lidocaine Bowel regimen MiraLAX twice daily. Patient unsure regarding completing the radiation treatment. She wanted me to reach out to her oncologist Dr. Joaquín Charlton . Discussed with Dr. Charlton; he recommends completing radiation treatment. Patient informed. Discussed with radiation oncology (Dr. Chaka Charlton); he recommends Medrol Dosepak . Patient to continue radiation treatment tomorrow as per schedule. Other conditions; Recent PE; CTA from 12/31 shows right lower lobe subsegmental PE. Currently on Lovenox. Received her dose today morning. PCOScontinue on spironolactone ADHDnot on medication presently. DVT prophylaxis Lovenox Full code Time spent evaluating patient, direct bedside care, chart review, placing orders, interpretation of diagnostic studies, discussion with consultants, patient, and family members, as well as other required patient management activities is 60 minutes. Please note the above document was generated using voice recognition software. It may contain grammatical, syntax or spelling errors. Any formal questions or concerns about the content, text or information contained within the body of this dictation should be directly addressed to the provider for clarification Admission and Anticipated Discharge Date Admission Date: January 18, 2023 Subjective Patient seen after the endoscopy. She reports that she is able to swallow water and soda. Continues to report chest pain. Review of Systems Review of Systems: All systems reviewed & are unremarkable except as noted in Subjective Physical Exam Physical Exam: Constitutional: Awake, alert orient x3; comfortable. Mouth mucous membrane dry; no plaques or discharge. Neck: trachea midline, no thyromegaly normal visual inspection Respiratory: normal respiratory effort, lungs clear to auscultation, no wheeze, rales, rhonchi. Normal insp/exp effort, no accessory muscle use Cardiovascular: RRR, no murmur, no edema Vessels: no JVD or carotid bruit Chest: Tenderness on palpation of the chest. Abdomen: normal bowel sounds, soft, nontender, no hepatosplenomegaly Musculoskeletal: no cyanosis or clubbing, extremities motor strength 5/5 Skin: no rashes, warm and dry normal turgor Neurologic: PERRL, EOMI, accommodation nl, no face palsy, no dysarthria CN's II- XI intact bilaterally and moves all extremities Psychiatric: A+Ox3, euthymic affect Results & Data Results & Data Vital Signs (Past 12 Hours) Vital Signs Temp Pulse Pulse Resp BP Pulse Ox O2 Del Method 01/19/23 11:00 36.3 C L 78 18 93/65 L 99 Room Air 01/19/23 10:29 75 18 93/72 L 100 Oxymask 01/19/23 10:14 78 16 92/65 L 94 Room Air 01/19/23 09:59 90 16 93/70 L 95 Room Air 01/19/23 09:09 36.8 C 83 16 127/89 98 Room Air 01/19/23 07:00 36.5 C 89 18 94/63 L 93 Room Air 01/19/23 07:16 84 01/19/23 06:13 104/60 01/19/23 03:02 36.5 C 79 18 96/58 L 99 Nasal Cannula O2 Flow Rate 01/19/23 11:00 01/19/23 10:29 3 01/19/23 10:14 01/19/23 09:59 01/19/23 09:09 01/19/23 07:00 01/19/23 07:16 01/19/23 06:13 01/19/23 03:02 2 Laboratory Results Laboratory Results WBC 2.51 K/ul (4.8-10.8) L 01/19/23 08:34 RBC 2.79 M/uL (4.20-5.40) L 01/19/23 08:34 Hgb 10.1 g/dl (12.0-16.0) L 01/19/23 08:34 Hct 28.6 % (37.0-47.0) L 01/19/23 08:34 MCV 102.5 fL (80.0-100.0) H 01/19/23 08:34 MCH 36.2 pg (25.0-34.0) H 01/19/23 08:34 MCHC 35.3 g/dL (32.0-36.0) 01/19/23 08:34 RDW Std Deviation 76.1 fL (36.4-46.3) H 01/19/23 08:34 RDW Coeff of Saritha 20.7 % (11.5-14.5) H 01/19/23 08:34 Plt Count 164 K/uL (130-400) 01/19/23 08:34 MPV 9.6 fL (9.4-12.4) 01/19/23 08:34 Immature Gran % (Auto) 1.2 % 01/19/23 08:34 Neut % (Auto) 56.5 % 01/19/23 08:34 Lymph % (Auto) 31.5 % 01/19/23 08:34 Robertson % (Auto) 10.0 % 01/19/23 08:34 Eos % (Auto) 0.8 % 01/19/23 08:34 Baso % (Auto) 0.0 % 01/19/23 08:34 Neut # (Auto) 1.42 K/uL (1.40-6.50) 01/19/23 08:34 Lymph # (Auto) 0.79 K/uL (1.2-3.4) L 01/19/23 08:34 Robertson # (Auto) 0.25 K/uL (0.11-0.59) 01/19/23 08:34 Eos # (Auto) 0.02 K/uL (0-0.50) 01/19/23 08:34 Baso # (Auto) 0.00 K/uL (0-0.2) 01/19/23 08:34 Immature Gran # (Auto) 0.03 K/uL (0.01-0.20) 01/19/23 08:34 Polychromasia 1+ 01/19/23 08:34 Anisocytosis Present 01/19/23 08:34 Tear Drop Cells 1+ 01/18/23 15:40 Sodium 137 mmol/L (136-145) 01/19/23 08:34 Potassium 3.6 mmol/L (3.5-5.1) 01/19/23 08:34 Chloride 107 mmol/L (98-107) 01/19/23 08:34 Carbon Dioxide 25 mmol/L (21-32) 01/19/23 08:34 Anion Gap 5 (3-11) 01/19/23 08:34 BUN 15 mg/dl (6-23) 01/19/23 08:34 Creatinine 0.80 mg/dl (0.6-1.2) 01/19/23 08:34 Est Cr Clr Drug Dosing 98.0 ml/min 01/19/23 08:34 Est GFR ( Amer) 103.9 ml/min 01/19/23 08:34 Est GFR (Non-Af Amer) 89.7 ml/min 01/19/23 08:34 BUN/Creatinine Ratio 18.8 (10-20) 01/19/23 08:34 Glucose 94 mg/dl (70-99(Fasting)) 01/19/23 08:34 Calcium 8.6 mg/dl (8.6-10.3) 01/19/23 08:34 Total Bilirubin 0.5 mg/dl (0.2-1.0) 01/19/23 08:34 AST 8 U/L (13-39) L 01/19/23 08:34 ALT 12 U/L (7-52) 01/19/23 08:34 Alkaline Phosphatase 58 U/L (34-104) 01/19/23 08:34 Troponin I High Sens < 2.3 pg/ml (0-14) 01/18/23 15:40 Total Protein 6.5 gm/dl (6.0-8.3) 01/19/23 08:34 Albumin 3.6 gm/dl (3.4-5.0) 01/19/23 08:34 Globulin 2.9 gm/dl (2.5-4.0) 01/19/23 08:34 Albumin/Globulin Ratio 1.2 (0.9-2) 01/19/23 08:34 Lipase 23 U/L (11-82) 01/18/23 15:40 Urine Color Dark Yellow 01/18/23 15:48 Urine Appearance Turbid (Clear) A 01/18/23 15:48 Urine pH 5.5 (4.5-7.5) 01/18/23 15:48 Ur Specific [place] 1.023 (1.000-1.030) 01/18/23 15:48 Urine Protein Negative (Negative) 01/18/23 15:48 Urine Glucose (UA) Negative (Negative) 01/18/23 15:48 Urine Ketones Negative (Negative) 01/18/23 15:48 Urine Blood Negative (Negative) 01/18/23 15:48 Urine Nitrite Negative (Negative) 01/18/23 15:48 Urine Bilirubin Negative (Negative) 01/18/23 15:48 Urine Urobilinogen Negative (Negative) 01/18/23 15:48 Ur Leukocyte Esterase Negative (Negative) 01/18/23 15:48 Urine WBC (Auto) 1-5 /hpf (0-5) 01/18/23 15:48 Urine RBC (Auto) 0-4 /hpf (0-4) 01/18/23 15:48 U Hyaline Cast (Auto) 1-5 /lpf (0-5) 01/18/23 15:48 U Epithel Cells (Auto) >30 /lpf (0-5) H 01/18/23 15:48 Urine Bacteria (Auto) 4+ (Negative) H 01/18/23 15:48 SARS-CoV-2, RNA, NAAT NEGATIVE (NEGATIVE) 01/18/23 16:08 Impressions Chest X-Ray 01/18/23 15:39 XR chest 1V portable CLINICAL HISTORY: Atypical chest pain. COMPARISON STUDY: Chest radiograph and chest CT January 05, 2023 FINDINGS: Right internal jugular Lxerew-p-Uqne remains in place. There is no pneumothorax or pleural effusion. There is no consolidation to suggest pneumonia. Right upper lobe mass measuring approximately 3.3 cm is again noted. This appears similar to chest radiograph January 05, 2023 but decreased in size from earlier exams. Mediastinal lymphadenopathy is better depicted on prior chest CT. The appearance of the chest is unchanged. No evidence for pulmonary edema. IMPRESSION: 1. No acute cardiopulmonary findings. 2. Right upper lobe mass and mediastinal lymphadenopathy better depicted on prior chest CT. ACT 112: Negative or not required by law. Electronically signed by: Dewey Reza M.D. 01/18/2023 4:[address] 01/18/23 17:38 Exam(s): CT ABDOMEN IV Amt: 92 ml optiray 320 EXAM: CT Abdomen With Intravenous Contrast CLINICAL HISTORY: Nausea and vomiting, Constipation. TECHNIQUE: Axial computed tomography images of the abdomen with intravenous contrast. CTDI is 28.28 mGy and DLP is 930.45 mGy-cm. Automated exposure control was utilized for the study. A dose lowering technique was utilized adhering to the principles of ALARA. CONTRAST: Patient received 92 ml optiray 320 of IV contrast COMPARISON: No relevant prior studies available. FINDINGS: Lung bases: Subsegmental peripheral ground-glass changes in the left lower lobe. No lobar consolidation. Liver: Unremarkable. No mass. Gallbladder and bile ducts: Cholecystectomy. No ductal dilation. Pancreas: Unremarkable. No mass. No ductal dilation. Spleen: Unremarkable. No splenomegaly. Adrenals: Unremarkable. No mass. Kidneys and ureters: Unremarkable. No solid mass. No hydronephrosis. Stomach and bowel: The stomach is mildly filled with oral contents, fluid and gas. No gastric mucosal thickening. The bowel loops in the abdomen demonstrate no evidence for bowel obstruction. No obvious bowel mucosal asymmetry noted. The included portions of the colon demonstrate mild to moderate stool burden. Intraperitoneal space: Unremarkable. No free air. No significant fluid collection. Bones/joints: No acute fracture. No dislocation. Soft tissues: Unremarkable. Vasculature: Unremarkable. No abdominal aortic aneurysm. Lymph nodes: Unremarkable. No enlarged lymph nodes. IMPRESSION: No significant abnormality identified within the abdomen. Electronically signed by: Miguelangel Jaramillo MD 01/18/23 21:15 PM
[2023-01-19] MEDS ORDERED: methylPREDNISolone 4 MG TAB, 6 DAY TAPER PO SCH (14:45)
[2023-01-19] MEDS ORDERED: methylPREDNISolone 4 MG TAB PO ONE (14:45)
[2023-01-19] MEDS ORDERED: methylPREDNISolone 4 MG TAB PO SCH ×2 (18:00→21:00)
[2023-01-19] MEDS: HEPARIN 100 UNIT/ML 5ML FLUSH FLUSH PRN ×2 (18:23→18:39)
[2023-01-19] MEDS ORDERED: MELATONIN 3 MG TAB PO PRN (23:16)
[2023-01-19] MEDS ORDERED: PROMETHAZINE HCL 12.5 MG in SODIUM CHLORIDE 0.9% 50 ML IV STA (23:16)
[2023-01-19] MEDS ORDERED: LORazepam 2 MG/1 ML VIAL IV STA (23:37)
[2023-01-20] MEDS: MAGNESIUM HYDROXIDE SUSP 30 ML UDC PO SCH ×5 (02:07→20:28)
[2023-01-20] MEDS: LIDOCAINE VISCOUS 2% 15 ML UDC MT SCH ×4 (02:07→20:28)
[2023-01-20] MEDS: HYDROmorphone INJ 0.5 MG/0.5 ML SYR IV PRN ×6 (04:34→23:30)
[2023-01-20] MEDS: BENZONATATE 100 MG CAPSULE PO PRN (04:34)
[2023-01-20] MEDS: FIRST - Mouthwash BLM 119 ML PO SCH ×4 (06:05→22:54)
[2023-01-20 07:00] LABS: Eosinophils # (auto) 0.02 K/uL (0-0.50); Eosinophils % (auto) 0.9 %; Hemoglobin 10.5 g/dl (12.0-16.0); Immature Granulocytes # (auto) 0.07 K/uL (0.01-0.20); Lymphocytes % (auto) 26.1 %; Mean Corpuscular Hemoglobin 36.6 pg (25.0-34.0); Mean Corpuscular Hgb Conc 36.2 g/dL (32.0-36.0); Mean Platelet Volume 9.7 fL (9.4-12.4); Monocytes # (auto) 0.25 K/uL (0.11-0.59); Monocytes % (auto) 10.9 %; Neutrophils # (auto) 1.36 K/uL (1.40-6.50); Neutrophils % (auto) 59.1 %; Platelet Count 173 K/uL (130-400); RDW Standard Deviation 73.5 fL (36.4-46.3); Red Blood Count 2.87 M/uL (4.20-5.40)
[2023-01-20] MEDS ORDERED: methylPREDNISolone 4 MG TAB PO SCH ×2 (07:00→21:00)
[2023-01-20] MEDS: MoRPHine SULFATE IR 15 MG TAB (IMMEDIATE RELEASE) PO PRN ×3 (07:03→22:54)
[2023-01-20 07:17] LABS: Albumin Globulin Ratio 1.2 (0.9-2); Albumin Level 3.6 gm/dl (3.4-5.0); BUN Creatinine Ratio 16.9 (10-20); Bilirubin,Total 0.6 mg/dl (0.2-1.0); Calcium 9.3 mg/dl (8.6-10.3); Creatinine Clr Calc Pharmacy 94.4 ml/min; Est GFR (African American) 99.4 ml/min; Est GFR (Non-African American) 85.8 ml/min; Total Protein 6.6 gm/dl (6.0-8.3)
[2023-01-20] MEDS: ENOXAPARIN 100 MG/1ML SYR SQ SCH ×2 (07:53→20:28)
[2023-01-20] MEDS: POLYETHYLENE (MIRALAX) 17 GM PACK PO SCH ×2 (07:56→20:28)
[2023-01-20] MEDS: SUCRALFATE 1 GM/10 ML UDC PO SCH ×4 (07:57→20:21)
[2023-01-20] MEDS: PANTOprazole 40 MG TAB PO SCH (07:57)
[2023-01-20] MEDS: SPIRONOLACTONE 100 MG TAB PO SCH ×2 (07:58→20:29)
[2023-01-20] MEDS ORDERED: PANTOprazole 40 MG in SYRINGE 0 ML IV ONE (10:33)
[2023-01-20] MEDS ORDERED: OPTIRAY 320 100ml IV ONE (11:14)
[2023-01-20] MEDS: HEPARIN 100 UNIT/ML 5ML FLUSH FLUSH PRN ×2 (11:54→16:52)
--- NOTE | 2023-01-20 11:54 | Student Report ---
[facility] Med Student Progress Note Date of Service Date of service: January 20, 2023 Subjective Subjective: Pt resting in bed. Very tearful this am. Is anxious and feeling stress regarding continuing her radiation treatments. Per the patient she has 4 treatments left that will finish on Thursday. She is feeling frustrated with the side effects and complications she has been experiencing as a result of treatment and is unsure if she wants to continue with her regimen. Assessment hector she denies fever, chills, KEE, CP, SOB. She has had nausea throughout her cancer treatment and notes several episodes of emesis this morning, denies blood. Pt also reports constipation at times. She denies abdominal pain, but does have discomfort in the epigastric area and throat. She denies any current flare symptoms with her lupus, but does state that she almost always has some degree of joint pain. ROS ROS: See above for pertinent positives & negatives. A total of 10 systems reviewed and were otherwise negative. Physical Exam Physical Exam: Vital signs reviewed. General: Well-appearing, in no significant distress. Pt very tearful regarding POC. HEENT: No scleral icterus, PERRLA, neck supple. Atraumatic. Cardiovascular: Regular rate and rhythm, no extra sounds. Pulmonary: Clear to auscultation bilaterally, normal work of breathing. Decreased BB woodall. Abdomen: Soft, nontender, nondistended, positive bowel sounds. Musculoskeletal: Atraumatic, no peripheral edema. Neurologic: Patient awake alert and oriented x 3, full strength in all 4 extremities. Skin: Warm, dry, no rash Results Results: Short CBC 01/20/23 Range/Units 06:19 WBC 2.30 L (4.8-10.8) K/ul Hgb 10.5 L (12.0-16.0) g/dl Hct 29.0 L (37.0-47.0) % Plt Count 173 (130-400) K/uL BMP 01/20/23 06:19 Sodium 135 L Potassium 4.0 Chloride 102 Carbon Dioxide 30 BUN 14 Creatinine 0.83 Glucose 87 Calcium 9.3 Liver Function 01/20/23 Range/Units 06:19 Total Bilirubin 0.6 (0.2-1.0) mg/dl AST 8 L (13-39) U/L ALT 12 (7-52) U/L Alkaline Phosphatase 65 (34-104) U/L Albumin 3.6 (3.4-5.0) gm/dl Vital Signs Temp 36.6 C 01/20/23 07:32 Pulse 88 01/20/23 07:32 Resp 16 01/20/23 07:32 BP 106/72 01/20/23 07:32 Pulse Ox 96 01/20/23 07:32 O2 Del Method Room Air 01/20/23 10:00 O2 Flow Rate 3 01/19/23 10:29 Intake & Output 01/19/23 01/20/23 01/20/23 18:59 06:59 18:59 Intake Total 100 / 600 500 / 600 Balance 100 / 600 500 / 600 Weight 87.4 kg 87.4 kg Intake: IV 100 / 100 D5w and Nss 1,000 ml @ 80 mls/ 100 / 100 hr IV .[id number] MATI Rx#:[id number] Oral 500 / 500 Other: # Unmeasured Voids 1 A&P A&P: 1. Radiation esophagitis 2/2 radiation treatments for RUL adenocarcinoma EGD showed nonbleeding esophageal ulcer, s/p dilation. CT abdomen/pelvis showed large stool burden, but no SBO, wall thickening. Pt had several episodes of nausea and bile emesis this morning. Per GI recs: Continue Maalox with lidocaine Pantoprazole daily indefinitely and sucralfate x4 weeks for esophagitis Miralax and milk of mag for constipation Promethazine Hcl for nausea/vomiting Prednisone orally in place of IV (pt doesn't tolerate) for esophageal inflammation Pt will need repeat EGD in 3mos. 2. 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 On assessment, pt very tearful and anxious about remaining treatments. Is unsure if she wants to complete and would like to speak with radiation oncology prior to todays treatment. Due to complete radiation this week. Pt had repeat CT scan and was found to have mass in right kidney, not present on previous scans. Pt will need to undergo biopsy for renal mass in near future. Pt also has history of endometrial cancer. 3. PE history, RLL on CT from 12/31 Pt currently on daily lovenox. Continue lovenox inpatient Hold lovenox for 24 hrs prior to any surgical procedure 4. PCOS Continue [employer] spironolactone 5. ADHD Pt [employer] Adderall restarted. 6. Diet/bowel regimen See above for GI meds Soft diet ordered 7. Pain Morphine, dilaudid PRN for moderate, severe pain Lorazepam PRN of anxiety Chlorpromazine PRN for hiccoughs 8. DVT prophylaxis Lovenox as above 9. Disposition Pt remains under hospitalist service Have reached out to medical and radiological oncology to discuss plans for remaining radiation treatments moving forward.
[2023-01-20] MEDS: PROMETHAZINE HCL 12.5 MG/10 ML UDP PO SCH ×3 (12:15→22:49)
--- NOTE | 2023-01-20 12:16 | CT Scan Report ---
CT OF THE CHEST WITH IV CONTRAST CLINICAL HISTORY: Lung cancer. COMPARISON STUDY: Chest CT January 05, 2023. Chest radiograph January 18, 2023. PET/CT October 14, 2022. TECHNIQUE: Following IV administration of Optiray, helical axial images of the chest were obtained. Sagittal and coronal reconstructions were viewed as well as maximal intensity projections on an [employer] 3-D workstation. Automated exposure control was utilized for the study. A dose lowering jaylen hnique was utilized adhering to the principles of ALARA. CT DOSE: 904.50 mGy.cm FINDINGS: Enlarged right paratracheal lymph nodes have mildly decreased in size since chest CT December 31, 2022. Index right paratracheal lymph node on image 69 of 233 measures 2.5 x 2 cm. It previously me asured 2.9 x 2.6 cm. The known spiculated right upper lobe lesion measures 2.9 x 2.5 cm. This previou sly measured 3 x 2.5 cm. No pneumothorax or pleural effusion is present. No new pulmonary nodules are present. There is no consolidation to suggest pneumonia. Subpleural opacities favor atelectasis. Dago tral airways are patent. No suspicious lesions within the bony thorax are present. Note is made of a 2.5 cm solid mass within the midpole of the right kidney. There is an additional suspected solid lesi on within the midpole the right kidney, measuring 1.1 cm on image 225. Kidneys are partially imaged o n this exam. Several renal cysts are noted. Upper abdomen is otherwise unremarkable. The gallbladder surgically absent. IMPRESSION: 1. Slight decrease in size of the known right upper lobe lung cancer and associated mediastinal lymph adenopathy since chest CT of December 31, 2022. 2. Two solid right renal lesions measuring up to 2.5 cm. These are indeterminate. Differential consid erations include metastases given the history of lung cancer. However, multiple solid primary renal l esions could appear similar. ACT 112: Negative or not required by law. Electronically signed by: Dewey Reza M.D. 01/20/2023 12:15 PM
[2023-01-20] MEDS: LORazepam 0.5 MG TAB PO PRN ×3 (12:40→22:54)
[2023-01-20] MEDS: chlorproMAZINE HCL 25 MG TAB PO PRN ×2 (12:40→21:08)
[2023-01-20] MEDS: predniSONE 10 MG TABLET PO SCH (13:48)
--- NOTE | 2023-01-20 16:50 | Hospitalist Progress Note ---
Date of Service January 20, 2023 Assessment & Plan (1) Dysphagia: Plan: Radiation esophagitis Esophageal ulcer Hx RUL adenocarcinoma Past medical history of right upper lobe adenocarcinoma with mediastinal lymph node involvement (T2b, N2, M0) Started on combined chemotherapy with weekly Paclitaxel and carboplatin , treatment started on 11/19/2022; completed treatment on 01/13/23. Undergoing radiation; last dose 3 days prior to admission. Due for 4 more radiation treatment. Underwent endoscopy on 01/19-esophageal ulcer with no bleeding and no stigmata of recent bleeding. Dilation performed. Continue Protonix 40 mg daily for 3 months Sucralfate 1 g p.o. 4 times daily for 4 weeks MiraLAX, lidocaine Bowel regimen MiraLAX twice daily. Discussed with radiation oncology (Dr. Chaka Charlton) by previous provider; he recommended Medrol Dosepak. Patient declining Medrol as she reports an adverse reaction. Discussed with Dr. Chaka Charlton today regarding alternate options, will start prednisone 10 mg daily. Patient was scheduled for follow-up CT chest today as an outpatient. CT chest with IV contrast was obtained today -- Slight decrease in size of the known right upper lobe lung cancer and associated mediastinal lymphadenopathy since chest CT of December 31, 2022. Also showed new renal lesions. CT abd/pelvis re-read by radiology showing multiple solid bilateral renal lesions. These include a 3.2 cm right midpole lesion, a 1.1 cm right midpole lesion, a 1.9 cm left lower pole lesion, a 1.3 cm left midpole lesion, and a 0.7 cm left lower pole lesion. --Discussed with radiologist, Dr. Reza who is recommending biopsy. Left renal lesion IR ultrasound-guided biopsy scheduled on 01/27 at 7 AM at [facility]. Patient to arrive at 630. N.p.o. 4 hours prior to test. Hold Lovenox for 24 hours prior to procedure. Patient wishes to not continue with radiation treatment at this time. Above findings were discussed with patient's oncologist Dr. Joaquín Charlton. Pulmonary embolism CTA from 12/31 shows right lower lobe subsegmental PE. Currently on therapeutic dose Lovenox. Will need to hold Lovenox prior to biopsy as above PCOS Continue on spironolactone ADHD Previously on Adderall, not currently taking DVT PROPHYLAXIS On therapeutic dose Lovenox as above Patient seen in collaboration with Dr. Shultz. Admission and Anticipated Discharge Date Admission Date: January 18, 2023 Supervising Physician Co-Signing Physician Notes Patient seen and examined at bedside. Discussed with above provider. Reports that her nausea and vomiting is slightly better compared to yesterday. CT chest without contrast was obtained; found to have 2 solid right renal lesions. Discussion was done with her oncologist who recommended biopsy as outpatient. Continue supportive care; possible DC in a.m. Subjective Follow-up for radiation esophagitis, esophageal ulcer. Patient seen and examined. Reports ongoing dysphagia, nausea, 1 episode of vomiting during breakfast this morning. Denies hematemesis and coffee-ground emesis. No abdominal pain. + BM without difficulty. Denies chest pain and shortness of breath. Review of Systems Review of Systems: ROS per HPI, all other systems reviewed and negative Physical Exam Constitutional: WD/WN, vitals as above Respiratory: normal respiratory effort, lungs clear to auscultation Cardiovascular: Rate/Rhythm: regular rate and regular rhythm Vessels: normal peripheral pulses Extremities: no edema Gastrointestinal (Abdomen): Percussion/Palpation: abdomen soft; abdomen nontender Skin: no rashes, warm and dry Neurologic: PERRL, EOMI, accommodation nl, no face palsy, no dysarthria Psychiatric: Orientation: alert and oriented x 3 Affect: + tearful affect Results & Data Results & Data Vital Signs (Past 12 Hours) Vital Signs Temp Pulse Resp BP Pulse Ox O2 Del Method 01/20/23 15:49 36.4 C L 115 H 16 123/87 98 Room Air 01/20/23 10:00 Room Air 01/20/23 07:32 36.6 C 88 16 106/72 96 Room Air Laboratory Results Short CBC 01/20/23 Range/Units 06:19 WBC 2.30 L (4.8-10.8) K/ul Hgb 10.5 L (12.0-16.0) g/dl Hct 29.0 L (37.0-47.0) % Plt Count 173 (130-400) K/uL BMP 01/20/23 06:19 Sodium 135 L Potassium 4.0 Chloride 102 Carbon Dioxide 30 BUN 14 Creatinine 0.83 Glucose 87 Calcium 9.3 Liver Function 01/20/23 Range/Units 06:19 Total Bilirubin 0.6 (0.2-1.0) mg/dl AST 8 L (13-39) U/L ALT 12 (7-52) U/L Alkaline Phosphatase 65 (34-104) U/L Albumin 3.6 (3.4-5.0) gm/dl Diagnostic Findings Abdomen CT 01/18/23 17:38 Exam(s): CT ABDOMEN IV Amt: 92 ml optiray 320 EXAM: CT Abdomen With Intravenous Contrast CLINICAL HISTORY: Nausea and vomiting, Constipation. TECHNIQUE: Axial computed tomography images of the abdomen with intravenous contrast. CTDI is 28.28 mGy and DLP is 930.45 mGy-cm. Automated exposure control was utilized for the study. A dose lowering technique was utilized adhering to the principles of ALARA. CONTRAST: Patient received 92 ml optiray 320 of IV contrast COMPARISON: No relevant prior studies available. FINDINGS: Lung bases: Subsegmental peripheral ground-glass changes in the left lower lobe. No lobar consolidation. Liver: Unremarkable. No mass. Gallbladder and bile ducts: Cholecystectomy. No ductal dilation. Pancreas: Unremarkable. No mass. No ductal dilation. Spleen: Unremarkable. No splenomegaly. Adrenals: Unremarkable. No mass. Kidneys and ureters: Unremarkable. No solid mass. No hydronephrosis. Stomach and bowel: The stomach is mildly filled with oral contents, fluid and gas. No gastric mucosal thickening. The bowel loops in the abdomen demonstrate no evidence for bowel obstruction. No obvious bowel mucosal asymmetry noted. The included portions of the colon demonstrate mild to moderate stool burden. Intraperitoneal space: Unremarkable. No free air. No significant fluid collection. Bones/joints: No acute fracture. No dislocation. Soft tissues: Unremarkable. Vasculature: Unremarkable. No abdominal aortic aneurysm. Lymph nodes: Unremarkable. No enlarged lymph nodes. IMPRESSION: No significant abnormality identified within the abdomen. Electronically signed by: Miguelangel Jaramillo MD 01/18/23 21:[address] 01/20/23 10:26 CT OF THE CHEST WITH IV CONTRAST CLINICAL HISTORY: Lung cancer. COMPARISON STUDY: Chest CT January 05, 2023. Chest radiograph January 18, 2023. PET/CT October 14, 2022. TECHNIQUE: Following IV administration of Optiray, helical axial images of the chest were obtained. Sagittal and coronal reconstructions were viewed as well as maximal intensity projections on an independent 3-D workstation. Automated exposure control was utilized for the study. A dose lowering technique was utilized adhering to the principles of ALARA. CT DOSE: 904.50 mGy.cm FINDINGS: Enlarged right paratracheal lymph nodes have mildly decreased in size since chest CT December 31, 2022. Index right paratracheal lymph node on image 69 of 233 measures 2.5 x 2 cm. It previously measured 2.9 x 2.6 cm. The known spiculated right upper lobe lesion measures 2.9 x 2.5 cm. This previously measured 3 x 2.5 cm. No pneumothorax or pleural effusion is present. No new pulmonary nodules are present. There is no consolidation to suggest pneumonia. Subpleural opacities favor atelectasis. Central airways are patent. No suspicio us lesions within the bony thorax are present. Note is made of a 2.5 cm solid mass within the midpole of the right kidney. There is an additional suspected solid lesion within the midpole the right kidney, measuring 1.1 cm on image 225. Kidneys are partially imaged on this exam. Several renal cysts are noted. Upper abdomen is otherwise unremarkable. The gallbladder surgically absent. IMPRESSION: 1. Slight decrease in size of the known right upper lobe lung cancer and associated mediastinal lymphadenopathy since chest CT of December 31, 2022. 2. Two solid right renal lesions measuring up to 2.5 cm. These are indeterminate. Differential considerations include metastases given the history of lung cancer. However, multiple solid primary renal lesions could appear similar. ACT 112: Negative or not required by law. Electronically signed by: Dewey Reza M.D. 01/20/2023 12:15 PM
[2023-01-20 17:14] LABS: Appearance Urine Clear (Clear); Bilirubin Urine Negative (Negative); Blood Urine Negative (Negative); Color Urine Yellow; Glucose Urine UA Negative (Negative); Ketones Urine Negative (Negative); Leukocyte Esterase Urine Negative (Negative); Nitrite Urine Negative (Negative); Protein Urine Negative (Negative); Specific Gravity Urine > 1.045 (1.000-1.030); Urobilinogen Urine Negative (Negative); pH Urine 5.5 (4.5-7.5)
[2023-01-21] MEDS: LIDOCAINE VISCOUS 2% 15 ML UDC MT SCH ×3 (02:00→14:35)
[2023-01-21] MEDS: MAGNESIUM HYDROXIDE SUSP 30 ML UDC PO SCH ×3 (02:00→14:35)
[2023-01-21] MEDS: HYDROmorphone INJ 0.5 MG/0.5 ML SYR IV PRN ×4 (02:47→14:34)
[2023-01-21] MEDS: PROMETHAZINE HCL 12.5 MG/10 ML UDP PO SCH ×3 (04:54→16:38)
[2023-01-21] MEDS: MoRPHine SULFATE IR 15 MG TAB (IMMEDIATE RELEASE) PO PRN (05:33)
[2023-01-21] MEDS: chlorproMAZINE HCL 25 MG TAB PO PRN (05:36)
[2023-01-21] MEDS: FIRST - Mouthwash BLM 119 ML PO SCH ×3 (05:45→16:49)
[2023-01-21] MEDS ORDERED: methylPREDNISolone 4 MG TAB PO SCH (07:00)
[2023-01-21 07:55] LABS: Basophils # (auto) 0.01 K/uL (0-0.2); Basophils % (auto) 0.5 %; Eosinophils # (auto) 0.02 K/uL (0-0.50); Eosinophils % (auto) 0.9 %; Hematocrit (blood only) 28.5 % (37.0-47.0); Hemoglobin 10.4 g/dl (12.0-16.0); Immature Granulocytes # (auto) 0.03 K/uL (0.01-0.20); Immature Granulocytes % (auto) 1.4 %; Lymphocytes # (auto) 0.53 K/uL (1.2-3.4); Mean Corpuscular Hemoglobin 37.4 pg (25.0-34.0); Mean Corpuscular Hgb Conc 36.5 g/dL (32.0-36.0); Mean Corpuscular Volume 102.5 fL (80.0-100.0); Mean Platelet Volume 9.3 fL (9.4-12.4); Monocytes # (auto) 0.26 K/uL (0.11-0.59); Monocytes % (auto) 12.3 %; Neutrophils # (auto) 1.27 K/uL (1.40-6.50); Neutrophils % (auto) 59.9 %; Platelet Count 168 K/uL (130-400); RDW Coefficient of Variation 20.6 % (11.5-14.5); RDW Standard Deviation 76.1 fL (36.4-46.3); Red Blood Count 2.78 M/uL (4.20-5.40); White Blood Count 2.12 K/ul (4.8-10.8)
[2023-01-21] MEDS: HEPARIN 100 UNIT/ML 5ML FLUSH FLUSH PRN ×5 (08:05→15:43)
[2023-01-21 08:22] LABS: Albumin Globulin Ratio 1.3 (0.9-2); Albumin Level 3.7 gm/dl (3.4-5.0); BUN Creatinine Ratio 19.5 (10-20); Bilirubin,Total 0.5 mg/dl (0.2-1.0); Calcium 9.4 mg/dl (8.6-10.3); Creatinine Clr Calc Pharmacy 90.1 ml/min; Est GFR (African American) 93.9 ml/min; Globulin 2.9 gm/dl (2.5-4.0); Magnesium 2.1 mg/dl (1.7-2.4); Phosphorus 4.6 mg/dl (2.5-4.9); Potassium 3.8 mmol/L (3.5-5.1); Total Protein 6.6 gm/dl (6.0-8.3)
[2023-01-21] MEDS: PANTOprazole 40 MG TAB PO SCH (08:22)
[2023-01-21] MEDS: SPIRONOLACTONE 100 MG TAB PO SCH (08:22)
[2023-01-21] MEDS: predniSONE 10 MG TABLET PO SCH (08:22)
[2023-01-21] MEDS: ENOXAPARIN 100 MG/1ML SYR SQ SCH (08:23)
[2023-01-21 08:24] LABS: Polychromasia 1+
[2023-01-21] MEDS: SUCRALFATE 1 GM/10 ML UDC PO SCH ×3 (08:25→16:38)
[2023-01-21] MEDS: POLYETHYLENE (MIRALAX) 17 GM PACK PO SCH (08:26)
[2023-01-21] MEDS: BENZONATATE 100 MG CAPSULE PO PRN (08:31)
[2023-01-21] MEDS: LORazepam 0.5 MG TAB PO PRN ×2 (08:31→17:24)
--- NOTE | 2023-01-21 13:48 | Communication Note ---
Date of Service: January 21, 2023 Radiation Oncology. Brief Note. Davian Suazo is currently receiving radiation therapy with chemotherapy for lung cancer. The patient has received treatments. The patient was recently admitted and was diagnosed with radiation esophagitis. Currently, she has requested to hold radiation therapy. During this admission, the patient did have diagnostic imaging studies which did reveal potential lesions involving the kidneys and there is a plan to biopsy a lesion in the outpatient setting. As per the patient, she is going to be discharged later today and will see Dr. Joaquín Charlton for medical oncology in the outpatient setting tomorrow. She will then decide if she wants further radiation therapy or not. I did explain to her the benefits and risks of stopping radiation therapy earlier. I answered all of her questions. She explained to me that she will contact our department to let us know if she plans to continue radiation therapy. Treatment will be canceled tomorrow due to her conflicting appointment with Dr. Joaquín Charlton. The patient was encouraged to call us with any further questions or concerns.
--- NOTE | 2023-01-21 16:08 | Discharge Summary ---
Date of Service January 21, 2023 Admission HPI Per Admitting Provider History obtained from chart review and interview with the patient. 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 Patient was a started on combined chemotherapy with weekly Paclitaxel and carboplatin , treatment started on 11/19/2022; completed treatment on 01/13/23. Also undergoing radiation for the same. Last dose of radiation on Thursday when she started to have symptoms of dysphagia with solids progressing to liquids. She also has severe retrosternal chest pain. She reports having nausea and vomiting; not able to keep anything down. She denies seeing any blood during the vomitus. She reports that dysphagia symptoms were present during her last admission and has gotten progressively worse since then. Denies fever, chills, abdominal pain. Reports constipation for several days; reports passing had rocklike pellets. On presentation to the ED, patient was afebrile, normotensive and saturating well on room air. Lab work remarkable for mild leukopenia. NA137, potassium4.4 Checks x-ray done in the ED showed right upper lobe mass and mediastinal lymphadenopathy. Patient to be admitted to medical floor for further treatment Admission Exam Per Admitting Provider Constitutional: Awake, alert orient x3; appears to be in significant distress. Vomiting. Mouth mucous membrane dry; no plaques or discharge. Neck: trachea midline, no thyromegaly normal visual inspection Respiratory: normal respiratory effort, lungs clear to auscultation, no wheeze, rales, rhonchi. Normal insp/exp effort, no accessory muscle use Cardiovascular: RRR, no murmur, no edema Vessels: no JVD or carotid bruit Chest: Tenderness on palpation of the chest. Abdomen: normal bowel sounds, soft, nontender, no hepatosplenomegaly Musculoskeletal: no cyanosis or clubbing, extremities motor strength 5/5 Skin: no rashes, warm and dry normal turgor Neurologic: PERRL, EOMI, accommodation nl, no face palsy, no dysarthria CN's II- XI intact bilaterally and moves all extremities Psychiatric: A+Ox3, euthymic affect Principal Diagnosis Radiation esophagitis, esophageal ulcer Discharge Exam Constitutional WD/WN, vitals as above Respiratory normal respiratory effort, lungs clear to auscultation Cardiovascular Rate/Rhythm: regular rate and regular rhythm Vessels: normal peripheral pulses Extremities: no edema Gastrointestinal (Abdomen) Percussion/Palpation: abdomen soft; abdomen nontender Skin no rashes, warm and dry Neurologic no focal motor deficits Psychiatric A+Ox3, euthymic affect Discharge Data Allergies Allergy/AdvReac Type Severity Reaction Status Date / Time levofloxacin [From Levaquin] Allergy Severe THROAT Verified 01/19/23 09:32 SWELLS SHUT, ITCHY Penicillins Allergy Severe Anaphylaxis Verified 01/19/23 09:32 clindamycin Allergy Intermediate Rash Verified 01/19/23 09:32 bupropion [From Wellbutrin] AdvReac Severe suicidal Verified 01/19/23 09:32 ideation ANESTHESIA AdvReac Severe FLAT LINES Uncoded 12/31/22 14:16 PLASTIC AdvReac Severe SKIN PEELS Uncoded 12/31/22 14:16 Consultations 01/18/23 19:37 Consult Gastroenterology Routine Procedures Performed Operation Date: 01/19/23 17:00 Actual Procedures p EGD Tiffany - Concha Jeffries, Ordered Studies Laboratory Results WBC 2.12 K/ul (4.8-10.8) L 01/21/23 07:30 RBC 2.78 M/uL (4.20-5.40) L 01/21/23 07:30 Hgb 10.4 g/dl (12.0-16.0) L 01/21/23 07:30 Hct 28.5 % (37.0-47.0) L 01/21/23 07:30 MCV 102.5 fL (80.0-100.0) H 01/21/23 07:30 MCH 37.4 pg (25.0-34.0) H 01/21/23 07:30 MCHC 36.5 g/dL (32.0-36.0) H 01/21/23 07:30 RDW Std Deviation 76.1 fL (36.4-46.3) H 01/21/23 07:30 RDW Coeff of Saritha 20.6 % (11.5-14.5) H 01/21/23 07:30 Plt Count 168 K/uL (130-400) 01/21/23 07:30 MPV 9.3 fL (9.4-12.4) L 01/21/23 07:30 Immature Gran % (Auto) 1.4 % 01/21/23 07:30 Neut % (Auto) 59.9 % 01/21/23 07:30 Lymph % (Auto) 25.0 % 01/21/23 07:30 [place] % (Auto) 12.3 % 01/21/23 07:30 Eos % (Auto) 0.9 % 01/21/23 07:30 Baso % (Auto) 0.5 % 01/21/23 07:30 Neut # (Auto) 1.27 K/uL (1.40-6.50) L 01/21/23 07:30 Lymph # (Auto) 0.53 K/uL (1.2-3.4) L 01/21/23 07:30 Norton # (Auto) 0.26 K/uL (0.11-0.59) 01/21/23 07:30 Eos # (Auto) 0.02 K/uL (0-0.50) 01/21/23 07:30 Baso # (Auto) 0.01 K/uL (0-0.2) 01/21/23 07:30 Immature Gran # (Auto) 0.03 K/uL (0.01-0.20) 01/21/23 07:30 Polychromasia 1+ 01/21/23 07:30 Anisocytosis Present 01/19/23 08:34 Tear Drop Cells 1+ 01/18/23 15:40 Sodium 137 mmol/L (136-145) 01/21/23 07:30 Potassium 3.8 mmol/L (3.5-5.1) 01/21/23 07:30 Chloride 102 mmol/L (98-107) 01/21/23 07:30 Carbon Dioxide 30 mmol/L (21-32) 01/21/23 07:30 Anion Gap 5 (3-11) 01/21/23 07:30 BUN 17 mg/dl (6-23) 01/21/23 07:30 Creatinine 0.87 mg/dl (0.6-1.2) 01/21/23 07:30 Est Cr Clr Drug Dosing 90.1 ml/min 01/21/23 07:30 Est GFR ( Amer) 93.9 ml/min 01/21/23 07:30 Est GFR (Non-Af Amer) 81.0 ml/min 01/21/23 07:30 BUN/Creatinine Ratio 19.5 (10-20) 01/21/23 07:30 Glucose 97 mg/dl (70-99(Fasting)) 01/21/23 07:30 Calcium 9.4 mg/dl (8.6-10.3) 01/21/23 07:30 Phosphorus 4.6 mg/dl (2.5-4.9) 01/21/23 07:30 Magnesium 2.1 mg/dl (1.7-2.4) 01/21/23 07:30 Total Bilirubin 0.5 mg/dl (0.2-1.0) 01/21/23 07:30 AST 8 U/L (13-39) L 01/21/23 07:30 ALT 11 U/L (7-52) 01/21/23 07:30 Alkaline Phosphatase 66 U/L (34-104) 01/21/23 07:30 Troponin I High Sens < 2.3 pg/ml (0-14) 01/18/23 15:40 Total Protein 6.6 gm/dl (6.0-8.3) 01/21/23 07:30 Albumin 3.7 gm/dl (3.4-5.0) 01/21/23 07:30 Globulin 2.9 gm/dl (2.5-4.0) 01/21/23 07:30 Albumin/Globulin Ratio 1.3 (0.9-2) 01/21/23 07:30 Lipase 23 U/L (11-82) 01/18/23 15:40 Urine Color Yellow 01/20/23 16:47 Urine Appearance Clear (Clear) 01/20/23 16:47 Urine pH 5.5 (4.5-7.5) 01/20/23 16:47 Ur Specific [place] > 1.045 (1.000-1.030) H 01/20/23 16:47 Urine Protein Negative (Negative) 01/20/23 16:47 Urine Glucose (UA) Negative (Negative) 01/20/23 16:47 Urine Ketones Negative (Negative) 01/20/23 16:47 Urine Blood Negative (Negative) 01/20/23 16:47 Urine Nitrite Negative (Negative) 01/20/23 16:47 Urine Bilirubin Negative (Negative) 01/20/23 16:47 Urine Urobilinogen Negative (Negative) 01/20/23 16:47 Ur Leukocyte Esterase Negative (Negative) 01/20/23 16:47 Urine WBC (Auto) 1-5 /hpf (0-5) 01/18/23 15:48 Urine RBC (Auto) 0-4 /hpf (0-4) 01/18/23 15:48 U Hyaline Cast (Auto) 1-5 /lpf (0-5) 01/18/23 15:48 U Epithel Cells (Auto) >30 /lpf (0-5) H 01/18/23 15:48 Urine Bacteria (Auto) 4+ (Negative) H 01/18/23 15:48 SARS-CoV-2, RNA, NAAT NEGATIVE (NEGATIVE) 01/18/23 16:08 Impressions Chest X-Ray 01/18/23 15:39 XR chest 1V portable CLINICAL HISTORY: Atypical chest pain. COMPARISON STUDY: Chest radiograph and chest CT January 05, 2023 FINDINGS: Right internal jugular [id number] remains in place. There is no pneumothorax or pleural effusion. There is no consolidation to suggest pneumonia. Right upper lobe mass measuring approximately 3.3 cm is again noted. This appears similar to chest radiograph January 05, 2023 but decreased in size from earlier exams. Mediastinal lymphadenopathy is better depicted on prior chest CT. The appearance of the chest is unchanged. No evidence for pulmonary edema. IMPRESSION: 1. No acute cardiopulmonary findings. 2. Right upper lobe mass and mediastinal lymphadenopathy better depicted on prior chest CT. ACT 112: Negative or not required by law. Electronically signed by: Dewey Reza M.D. 01/18/2023 4:[address] 01/18/23 17:38 Exam(s): CT ABDOMEN IV Amt: 92 ml optiray 320 EXAM: CT Abdomen With Intravenous Contrast CLINICAL HISTORY: Nausea and vomiting, Constipation. TECHNIQUE: Axial computed tomography images of the abdomen with intravenous contrast. CTDI is 28.28 mGy and DLP is 930.45 mGy-cm. Automated exposure control was utilized for the study. A dose lowering technique was utilized adhering to the principles of ALARA. CONTRAST: Patient received 92 ml optiray 320 of IV contrast COMPARISON: No relevant prior studies available. FINDINGS: Lung bases: Subsegmental peripheral ground-glass changes in the left lower lobe. No lobar consolidation. Liver: Unremarkable. No mass. Gallbladder and bile ducts: Cholecystectomy. No ductal dilation. Pancreas: Unremarkable. No mass. No ductal dilation. Spleen: Unremarkable. No splenomegaly. Adrenals: Unremarkable. No mass. Kidneys and ureters: Unremarkable. No solid mass. No hydronephrosis. Stomach and bowel: The stomach is mildly filled with oral contents, fluid and gas. No gastric mucosal thickening. The bowel loops in the abdomen demonstrate no evidence for bowel obstruction. No obvious bowel mucosal asymmetry noted. The included portions of the colon demonstrate mild to moderate stool burden. Intraperitoneal space: Unremarkable. No free air. No significant fluid collection. Bones/joints: No acute fracture. No dislocation. Soft tissues: Unremarkable. Vasculature: Unremarkable. No abdominal aortic aneurysm. Lymph nodes: Unremarkable. No enlarged lymph nodes. IMPRESSION: No significant abnormality identified within the abdomen. Electronically signed by: Miguelangel Jaramillo MD 01/18/23 21:[address] 01/20/23 10:26 CT OF THE CHEST WITH IV CONTRAST CLINICAL HISTORY: Lung cancer. COMPARISON STUDY: Chest CT January 05, 2023. Chest radiograph January 18, 2023. PET/CT October 14, 2022. TECHNIQUE: Following IV administration of Optiray, helical axial images of the chest were obtained. Sagittal and coronal reconstructions were viewed as well as maximal intensity projections on an independent 3-D workstation. Automated exposure control was utilized for the study. A dose lowering technique was utilized adhering to the principles of ALARA. CT DOSE: 904.50 mGy.cm FINDINGS: Enlarged right paratracheal lymph nodes have mildly decreased in size since chest CT December 31, 2022. Index right paratracheal lymph node on image 69 of 233 measures 2.5 x 2 cm. It previously measured 2.9 x 2.6 cm. The known spiculated right upper lobe lesion measures 2.9 x 2.5 cm. This previously measured 3 x 2.5 cm. No pneumothorax or pleural effusion is present. No new pulmonary nodules are present. There is no consolidation to suggest pneumonia. Subpleural opacities favor atelectasis. Central airways are patent. No suspicious lesions within the bony thorax are present. Note is made of a 2.5 cm solid mass within the midpole of the right kidney. There is an additional suspected solid lesion within the midpole the right kidney, measuring 1.1 cm on image 225. Kidneys are partially imaged on this exam. Several renal cysts are noted. Upper abdomen is otherwise unremarkable. The gallbladder surgically abs ent. IMPRESSION: 1. Slight decrease in size of the known right upper lobe lung cancer and associated mediastinal lymphadenopathy since chest CT of December 31, 2022. 2. Two solid right renal lesions measuring up to 2.5 cm. These are indeterminate. Differential considerations include metastases given the history of lung cancer. However, multiple solid primary renal lesions could appear similar. ACT 112: Negative or not required by law. Electronically signed by: Dewey Reza M.D. 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 Undergoing radiation; last dose 3 days prior to admission. Due for 4 more radiation treatment. Underwent endoscopy on 01/19-esophageal ulcer with no bleeding and no stigmata of recent bleeding. Dilation performed. Continue Protonix 40 mg daily for 3 months Sucralfate 1 g p.o. 4 times daily for 4 weeks Magic Mouth Wash Receives pain medication through [facility] palliative medicine Radiation oncology (Dr. Chaka Charlton) who recommended Medrol Dosepak. Patient declining Medrol as she reports an adverse reaction. Discussed with Dr. Chaka Charlton regarding alternate options, will start prednisone 10 mg daily. Patient was scheduled for follow-up CT chest as an outpatient. CT chest with IV contrast was obtained on 01/20 -- Slight decrease in size of the known right upper lobe lung cancer and associated mediastinal lymphadenopathy since chest CT of December 31, 2022. Also showed new renal lesions. CT abd/pelvis re-read by radiology showing multiple solid bilateral renal lesions. These include a 3.2 cm right midpole lesion, a 1.1 cm right midpole lesion, a 1.9 cm left lower pole lesion, a 1.3 cm left midpole lesion, and a 0.7 cm left lower pole lesion. -- Discussed with radiologist, Dr. Reza who is recommending biopsy. Left renal lesion IR ultrasound-guided biopsy scheduled on 01/27 at 7 AM at [facility]. Hold Lovenox for 24 hours prior to procedure. Patient wishes to not continue with radiation treatment at this time. Above findings were discussed with patient's oncologist Dr. Joaquín Charlton. Pulmonary embolism CTA from 12/31 shows right lower lobe subsegmental PE. Repeat CTA on 01/05 did not demonstrate any pulmonary embolism. Currently on therapeutic dose Lovenox. Will need to hold Lovenox prior to biopsy as above PCOS Continue on spironolactone ADHD Previously on Adderall, not currently taking Total Time Total Time Spent Total Time Spent (In Minutes): 45 Discharge Plan Discharge Items Patient Disposition: Home - Self-Care Reason For Visit: Difficult and painful swallowing Discharge Diagnosis: Radiation esophagitis and esophageal ulcer Activity: Resume your previous activity Non-emergency contact: Primary Care Provider and Oncologist Call non-emergency contact if: you have any medication questions, your symptoms worsen, your pain is not controlled and you have a fever Follow-up/Referrals: Concha Jeffries DO [Physician] - (The GI office will call you with an appointment for follow up to assess your esophagus.) Josue Blake MD [Primary Care Provider] - (Date & Time 01/28/2023 11:00 AM Provider HAIM Sampson Department Family [facility] ) Diet: Regular Diet Texture: Mechanical soft (ground) Addtl Attending Provider Instructions: You came to the hospital for evaluation of difficulty and painful swallowing. You had an EGD on 01/19 that showed an esophageal ulcer. You also had your esophagus dilated. To treat the esophageal ulcer and irritation from radiation, you were started on Protonix 40 mg daily x 3 months, Carafate 1 gram 4 times daily x 4 weeks, and prednisone 10 mg daily. Continue to follow a mechanical soft diet. You had a CT scan of your chest that showed slight improvement in your right upper lung cancer and enlarged lymph nodes. The CT scan also showed that you have lesions in both of your kidneys which will need to be biopsied. Left renal lesion IR ultrasound-guided biopsy scheduled on 01/27 at 7:00 AM at [facility]. Arrive at 6:30 AM. Nothing to eat 4 hours prior to the test. Hold both doses of Lovenox on 01/26 It was a pleasure taking care of you. If you need to reach a member of the [facility] hospitalist team at [facility], please call [phone]. HAIM Perez Pending Studies at Discharge: No Stand-Alone Forms: [facility], Smoking Cessation Medications and DC Order Prescriptions: New prednisone 10 mg Tablet 10 mg PO DAILY Qty: 14 0RF polyethylene glycol 3350 [Miralax] 17 gram Powder In Packet 17 g PO BID Qty: 14 0RF pantoprazole 40 mg Tablet,Delayed Release (Dr/Ec) 40 mg PO QAM Qty: 90 0RF promethazine 12.5 mg tablet 12.5 mg PO Q6H PRN (Reason: nausea and vomiting) Qty: 30 0RF Continued oxycodone 5 mg Capsule 5 mg PO Q8H PRN (Reason: Pain) chlorpromazine 25 mg tablet 25 mg PO Q6H PRN (Reason: Hiccups) ondansetron HCl 8 mg tablet 8 mg PO Q8H PRN (Reason: Other) morphine 15 mg tablet 15 mg PO Q4H PRN (Reason: Other) Magic Mouthwash 300 mL mouthwash 10 ml mucous membrane ACHS MDD esophagitis Qty: 300 4RF Rx Instructions: per pt she uses 4 times a day famotidine [Acid Manager Lan (famotidine)] 10 mg tablet 10 mg PO BID Qty: 60 0RF benzonatate 100 mg capsule 100 mg PO TID PRN (Reason: cough) Qty: 60 2RF Rx Instructions: One or Two as needed for cough spironolactone [Aldactone] 100 mg tablet 200 mg PO BID albuterol sulfate [Ventolin HFA] 90 mcg/actuation HFA aerosol inhaler 2 puff INHALATION Q4H PRN (Reason: COUGH/SOB/WHEEZING) lorazepam 0.5 mg tablet 0.5 mg PO TID PRN (Reason: Anxiety) Rx Instructions: PER PT "USE NEEDED". fluticasone propion-salmeterol [Advair HFA] 230-21 mcg/actuation HFA aerosol inhaler 2 inh INHALATION BID enoxaparin 100 mg/mL Syringe 90 mg subcut Q12 30 Days Qty: 54 0RF Changed sucralfate [Carafate] 1 gram tablet 1 g PO Q6H Qty: 1 0RF Rx Instructions: dissolve in one teaspoon of water. Swallow before meals and at bed time. Discharge Orders: Discharge Order (Routine); Ordered 01/21/23 Ordered By: Mitra Urban Admission Data Admit Date/Time: 01/18/23 17:38 Attending Provider: Teofilo Shultz Admit Provider: Teofilo Shultz Primary Care Provider: Josue Blake Other Providers: Yaquelin Tinoco ; Mireille Squires ; Rodrigue Bhatti ; Avril Sandhu ; Marcia Krause ; Shayy Bella ; Ana Luisa Paiz ; Juan Carlos Raza ; Hakan Cummings ; Concha Jeffries ; Penelope Kaba ; Erlin Bhandari ; Karen Donahue ; Asuncion Bush ; Jackeline Pierce ; Melinda Martinez ; Destin Zhong ; Yash Gallo ; Nino Auguste ; Zoe Traore ; Javi Jacinto Jr Other Interventions: Discharge Summary Assessment (RN) Last Done: 01/21/23 17:15 Supervising Physician Co-Signing Physician Notes Patient seen and examined at bedside. Discussed with above provider. Reports that her nausea and vomiting has significantly improved. Patient to follow-up with PCP, oncology and radiology.
[2023-01-22] MEDS ORDERED: methylPREDNISolone 4 MG TAB PO SCH (07:00)
[2023-01-23] MEDS ORDERED: methylPREDNISolone 4 MG TAB PO SCH (07:00)
[2023-01-24] MEDS ORDERED: methylPREDNISolone 4 MG TAB PO SCH (07:00)
== END 2023-01-21 18:25 | disposition home or self-care (01) | DRG 381 ==
LOC: ED 15:24 → 2W 17:38 → 3E 01-19 23:17

== ENCOUNTER 2023-02-06 12:06 | Inpatient (IN) ==
[2023-02-06] MEDS ORDERED: SODIUM CHLORIDE 0.9% 1000ML 1,000 ML IV ONE (12:57)
[2023-02-06] MEDS ORDERED: HYDROmorphone INJ 1 MG/ML SYRINGE IV STA (12:57)
--- NOTE | 2023-02-06 12:59 | Emergency Department Note ---
Impression & Plan Abdominal pain, Primary adenocarcinoma of upper lobe of right lung, Vomiting ED Provider Note NAME: FANNIE HERNANDEZ AGE: 42 SEX: F : 1980 ARRIVES VIA: Walk-In INFORMANT: Patient ED PROVIDER(S): Tenzin Marsh DO CHIEF COMPLAINT: Abdominal pain HPI: Patient is a 42-year-old female with a past medical history of primary adenocarcinoma of lung with metastatic disease who presents to the ER for severe abdominal pain. She has been unable to eat or drink for the past 2 days. She cannot keep down any of her medications. She was sent in by palliative care for concern for an obstruction. She has not had anything out rectally for the past 10 days. She is no longer passing any gas. She notes that the pain is diffuse throughout her belly but worse in the lower abdomen. Denies any dysuria, urgency, or frequency. No other exacerbating or remitting factors. PAST MEDICAL HISTORY:See Below PAST SURGICAL HISTORY:See Below FAMILY HISTORY:See Below SOCIAL HISTORY:See Below HOME MEDICATIONS:See Below ALLERGIES:See Below VITALS:See Below PHYSICAL EXAMINATION: GENERAL: Sitting up in bed, alert, chronically ill-appearing, disheveled EYE EXAM: normal conjunctiva. PERRL and EOM's grossly intact. OROPHARYNX: mucous membranes are moist NECK: supple LUNGS: Clear to auscultation. Normal chest wall mechanics HEART: no murmurs, S1 normal and S2 normal ABDOMEN: abdomen soft, non-tender, normo-active bowel sounds, no masses, no rebound or guarding. BACK: Back is symmetrical on inspection and there is no deformity, no midline tenderness, no CVA tenderness. SKIN: no rashes and no bruising UPPER EXTREMITIES: upper extremities are grossly normal. LOWER EXTREMITIES: No pitting edema. NEURO EXAM: Normal sensorium, cranial nerves II-XII grossly intact, normal speech, no gross weakness of arms, no gross weakness of legs. MEDICAL DECISION MAKING: Patient is a 42-year-old female who presents ER for above-stated complaint. IV was established blood work was obtained. External records were reviewed. Labs show mild leukopenia at 4.3 thousand. No significant anemia. Leukocytopenia at 115. BMP with LFTs bilirubin and lipase was unremarkable. UA was contaminated. Will not treat at this time. CT abdomen pelvis showed no obstruction. She was updated bedside. She was given IV morphine and Dilaudid and discussed with the hospitalist for further evaluation management treatment of her vomiting abdominal pain unable to keep anything down. Triage Nursing notes reviewed. Limited review of prior medical records performed Vital Signs: reviewed and remarkable for no significant abnormalities Differential diagnosis: Differential diagnoses includes but is not limited to gastritis, peptic ulcer disease, GERD, gallbladder disease, pancreatitis, small bowel obstruction, appendicitis, diverticulitis, hernia, urinary tract infection, torsion, perforation, trauma, infectious. ER treatment provided: See below Diagnostics interpreted by me include EKG and cardiac monitoring as listed below: -Cardiac Monitoring: An order was placed for continuous cardiac monitoring. The monitor shows a rate of 98 with sinus rhythm. -ECG: none -Laboratory studies:Interpreted by me as stated above in MDM and shown below. Imaging studies: Xrays: As interpreted by me:none CTs show: CT abdomen pelvis per my read showed no obvious obstruction CT abdomen pelvis per radiology as described above showed no acute pathology Consultation(s): As described in MDM Procedures:none Critical Care: None Past Med/Surg History Medical History (Updated 02/06/23 @ 16:06 by Tenzin Marsh DO) ADHD Asthma Encounter for pre-operative examination Endometriosis of the uterus, unspecified Primary adenocarcinoma of upper lobe of right lung (10/03/22) Pseudocholinesterase deficiency Systemic lupus erythematosus Tobacco abuse Surgical History H/O right wrist surgery H/O tubal ligation H/O: hysterectomy History of cholecystectomy Hx of appendectomy S/P bronchoscopy Family History Mother Cancer Breast Grandmother (Maternal) Cancer Lung Social History Smoking Status: Current every day smoker Tobacco Type: Cigarettes Cigarettes Per Day: 1/2 pack daily; Second Hand Exposure: Yes; Do You Dip or Chew Tobacco: No; Hx Alcohol Use: No Hx Substance Use: No Preferred Language: Italian Communication Ability: Effective Visual Impairment: No Limitations Hearing Ability: Normal Shot Man Required: No Beliefs That Will Affect Care: None marital status: Single Current Living Situation: Spouse Current Living Situation Comment: engaged current occupational status: unemployed 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 Feels Safe at Home: Yes Diet: regular during the past year weight has: remained stable Assistive Devices: Oxygen - at Night Allergies Allergies Allergy/AdvReac Type Severity Reaction Status Date / Time levofloxacin [From Levaquin] Allergy Severe THROAT Verified 02/06/23 15:16 SWELLS SHUT, ITCHY Penicillins Allergy Severe Anaphylaxis Verified 02/06/23 15:16 clindamycin Allergy Intermediate Rash Verified 02/06/23 15:16 bupropion [From Wellbutrin] AdvReac Severe suicidal Verified 02/06/23 15:16 ideation ANESTHESIA AdvReac Severe FLAT LINES Uncoded 02/06/23 15:16 PLASTIC AdvReac Severe SKIN PEELS Uncoded 02/06/23 15:16 Home Meds Home Medications Medication Instructions Recorded Confirmed spironolactone 100 mg tablet 200 mg PO BID 09/24/19 02/06/23 (Aldactone) albuterol sulfate 90 mcg/actuation 2 puff inhalation Q4H PRN 09/21/22 02/06/23 aerosol inhaler (Ventolin HFA) COUGH/SOB/WHEEZING fluticasone propionate 230 2 inh inhalation BID 10/24/22 02/06/23 mcg-salmeterol 21 mcg/actuation HFA inhaler (Advair HFA) lorazepam 0.5 mg tablet 0.5 mg PO TID PRN Anxiety 10/24/22 02/06/23 oxycodone 5 mg capsule 5 mg PO Q8H PRN Pain 11/25/22 02/06/23 chlorpromazine 25 mg tablet 25 mg PO Q6H PRN Hiccups 12/31/22 02/06/23 ondansetron HCl 8 mg tablet 8 mg PO Q8H PRN Other 01/06/23 02/06/23 morphine 15 mg immediate release 15 mg PO Q4H PRN Other 01/13/23 02/06/23 tablet enoxaparin 100 mg/mL subcutaneous 90 mg subcut BID 01/27/23 02/06/23 syringe polyethylene glycol 3350 17 gram 17 g PO TID 02/06/23 02/06/23 oral powder packet (Miralax) sucralfate 100 mg/mL oral 10 ml PO ACHS 02/06/23 02/06/23 suspension Previous Rx's Medication Instructions Recorded Magic Mouthwash 300 mL mouthwash 10 ml mucous membrane ACHS #300 mL 12/04/22 famotidine 10 mg tablet (Acid 10 mg PO BID #60 tabs 12/10/22 Youth Director (famotidine)) benzonatate 100 mg capsule 100 mg PO TID PRN cough #60 caps 12/22/22 pantoprazole 40 mg tablet,delayed 40 mg PO QAM #90 tabs 01/21/23 release promethazine 12.5 mg tablet 12.5 mg PO Q6H PRN nausea and 01/21/23 vomiting #30 tabs Results & Data (ED) Vital Signs Vital Signs - 24 hr 02/06/23 12:10 02/06/23 13:03 02/06/23 13:00 Temperature 36.8 C Temperature Source Temporal Artery Scan Pulse Rate 105 H 85 98 H Respiratory Rate 20 20 Blood Pressure 114/73 113/87 Blood Pressure Mean 86 95 Pulse Oximetry 95 94 Oxygen Delivery Method Room Air Room Air Sepsis Recent Fever Within 48 Hours No Sepsis New/Unexplained Change in Mental Status N/A Sepsis Action Taken by Nursing No Action Required 02/06/23 14:00 02/06/23 14:30 Temperature Temperature Source Pulse Rate 97 H 95 H Respiratory Rate 13 21 Blood Pressure 135/98 125/86 Blood Pressure Mean 110 99 Pulse Oximetry 98 93 Oxygen Delivery Method Room Air Room Air Sepsis Recent Fever Within 48 Hours Sepsis New/Unexplained Change in Mental Status Sepsis Action Taken by Nursing Laboratory Data 02/06/23 12:39 02/06/23 12:39 Lab Results 02/06/23 02/06/23 02/06/23 Range/Units 12:39 12:39 12:39 WBC 4.31 L (4.8-10.8) K/ul RBC 3.48 L (4.20-5.40) M/uL Hgb 13.0 (12.0-16.0) g/dl Hct 36.0 L (37.0-47.0) % MCV 103.4 H (80.0-100.0) fL MCH 37.4 H (25.0-34.0) pg MCHC 36.1 H (32.0-36.0) g/dL RDW Std Deviation 65.1 H (36.4-46.3) fL RDW Coeff of Saritha 17.2 H (11.5-14.5) % Plt Count 115 L (130-400) K/uL MPV 9.8 (9.4-12.4) fL Immature Gran % (Auto) 0.7 % Neut % (Auto) 70.3 % Lymph % (Auto) 19.0 % [place] % (Auto) 6.7 % Eos % (Auto) 2.8 % Baso % (Auto) 0.5 % Neut # (Auto) 3.03 (1.40-6.50) K/uL Lymph # (Auto) 0.82 L (1.2-3.4) K/uL [place] # (Auto) 0.29 (0.11-0.59) K/uL Eos # (Auto) 0.12 (0-0.50) K/uL Baso # (Auto) 0.02 (0-0.2) K/uL Immature Gran # (Auto) 0.03 (0.01-0.20) K/uL Sodium 138 (136-145) mmol/L Potassium 3.6 (3.5-5.1) mmol/L Chloride 105 (98-107) mmol/L Carbon Dioxide 27 (21-32) mmol/L Anion Gap 6 (3-11) BUN 12 (6-23) mg/dl Creatinine 0.85 (0.6-1.2) mg/dl Est Cr Clr Drug Dosing 92.9 ml/min Est GFR ( Amer) 96.6 ml/min Est GFR (Non-Af Amer) 83.3 ml/min BUN/Creatinine Ratio 14.1 (10-20) Glucose 100 H (70-99(Fasting)) mg/dl Calcium 10.0 (8.6-10.3) mg/dl Total Bilirubin 0.9 (0.2-1.0) mg/dl AST 12 L (13-39) U/L ALT 14 (7-52) U/L Alkaline Phosphatase 90 (34-104) U/L Total Protein 7.4 (6.0-8.3) gm/dl Albumin 4.1 (3.4-5.0) gm/dl Globulin 3.3 (2.5-4.0) gm/dl Albumin/Globulin Ratio 1.2 (0.9-2) Lipase 17 (11-82) U/L Urine Color Dark Yellow Urine Appearance Turbid A (Clear) Urine pH 6.0 (4.5-7.5) Ur Specific [place] 1.025 (1.000-1.030) Urine Protein 1+ H (Negative) Urine Glucose (UA) Negative (Negative) Urine Ketones Trace H (Negative) Urine Blood Negative (Negative) Urine Nitrite Positive A (Negative) Urine Bilirubin 1+ H (Negative) Urine Urobilinogen Negative (Negative) Ur Leukocyte Esterase 1+ H (Negative) Urine WBC (Auto) 10-30 H (0-5) /hpf Urine RBC (Auto) 0-4 (0-4) /hpf U Hyaline Cast (Auto) 1-5 (0-5) /lpf U Epithel Cells (Auto) >30 H (0-5) /lpf Urine Bacteria (Auto) 4+ H (Negative) Urine Mucus Present A (None Prsent) Administered Medications Discontinued Medications Hydromorphone HCl (Hydromorphone Inj 1 Mg/Ml Syringe) 1 mg IV NOW STA Stop: 02/06/23 12:58 Last Admin: 02/06/23 13:03 Dose: 1 mg Documented By: THIEN Sodium Chloride (Nss 1000ml) 1,000 mls @ 999 mls/hr IV .Q1H1M ONE Stop: 02/06/23 13:57 Last Infusion: 02/06/23 14:05 Dose: 0 mls/hr Documented By: Admin: 02/06/23 13:03 Dose: 999 mls/hr Documented By: THIEN Ioversol (Optiray 320 100ml) 93 ml IV ONCE ONE Stop: 02/06/23 13:45 Last Admin: 02/06/23 13:45 Dose: 93 ml Documented By: EDITH Metoclopramide HCl (Metoclopramide Hcl Inj 5 Mg/Ml 2 Ml Vial) 10 mg IV NOW STA Stop: 02/06/23 14:00 Last Admin: 02/06/23 14:04 Dose: 10 mg Documented By: THIEN Morphine Sulfate (Morphine Sulfate 4 Mg/Ml 1 Ml Carp\\Vial) 4 mg IV NOW STA Stop: 02/06/23 14:25 Last Admin: 02/06/23 14:29 Dose: 4 mg Documented By: THIEN Imaging Data Radiologist's Impression: Abdomen/Pelvis CT 02/06/23 12:30 CT abd pelvis IV con only CLINICAL HISTORY: abd TECHNIQUE: Helical axial images of the abdomen and pelvis were obtained and displayed. Automated dose lowering techniques and/or adjustment according to patient size were utilized for this exam. This exam was performed with intravenous contrast. CT DOSE: 1388.04 mGy.cm COMPARISON: Comparison is made to CT abdomen pelvis 01/18/2023 FINDINGS: Lower chest: Bibasilar atelectasis versus scarring is seen. Liver: Unremarkable. No focal lesions are seen. Gallbladder and biliary tree: Patient is status post cholecystectomy. No intra- or extrahepatic biliary ductal dilation. Pancreas: Unremarkable, no focal lesions. Spleen: Unremarkable. Adrenals: Unremarkable. Kidneys and ureters: Subcentimeter hypodensities are too small to characterize. Left renal mass which was recently biopsied is again noted. Bladder: Unremarkable. Reproductive organs: Patient is status post hysterectomy. Bowel: Unremarkable. Lymph nodes Retroperitoneal: Unremarkable. Pelvic: Unremarkable. Mesenteric: Unremarkable. Peritoneum: Normal. Vessels: Unremarkable. Abdominal wall: Anterior abdominal soft tissue densities likely represent injection granulomata. Bones: Degenerative changes in the visualized spine. IMPRESSION: No acute abnormalities to explain patient's abdominal pain. ACT 112: Negative or not required by law. Electronically signed by: Lei Edge M.D. 02/06/2023 2:12 PM Discharge Plan Visit Data Chief Complaint: Constipation Stated Complaint: ?BOWEL OBSTRUCTION,VOMITING,ABD PAIN,BODY ACHES ED Provider: Tenzin Marsh Discharge Problem: Abdominal pain, Primary adenocarcinoma of upper lobe of right lung, Vomiting Forms Stand Alone Forms: [facility] Prescriptions Prescriptions: No Action oxycodone 5 mg Capsule 5 mg PO Q8H PRN (Reason: Pain) chlorpromazine 25 mg tablet 25 mg PO Q6H PRN (Reason: Hiccups) ondansetron HCl 8 mg tablet 8 mg PO Q8H PRN (Reason: Other) morphine 15 mg tablet 15 mg PO Q4H PRN (Reason: Other) Magic Mouthwash 300 mL mouthwash 10 ml mucous membrane ACHS MDD esophagitis Qty: 300 4RF Rx Instructions: per pt she uses 4 times a day famotidine [Acid Youth Director (famotidine)] 10 mg tablet 10 mg PO BID Qty: 60 0RF benzonatate 100 mg capsule 100 mg PO TID PRN (Reason: cough) Qty: 60 2RF Rx Instructions: One or Two as needed for cough spironolactone [Aldactone] 100 mg tablet 200 mg PO BID albuterol sulfate [Ventolin HFA] 90 mcg/actuation HFA aerosol inhaler 2 puff INHALATION Q4H PRN (Reason: COUGH/SOB/WHEEZING) lorazepam 0.5 mg tablet 0.5 mg PO TID PRN (Reason: Anxiety) fluticasone propion-salmeterol [Advair HFA] 230-21 mcg/actuation HFA aerosol inhaler 2 inh INHALATION BID pantoprazole 40 mg Tablet,Delayed Release (Dr/Ec) 40 mg PO QAM Qty: 90 0RF Rx Instructions: PER PT "JUST PICKED UP FROM PHARMACY, HAVE NOT USED YET". promethazine 12.5 mg tablet 12.5 mg PO Q6H PRN (Reason: nausea and vomiting) Qty: 30 0RF enoxaparin 100 mg/mL syringe 90 mg subcut BID Rx Instructions: PER PT "HAVE NOT STARTED YET". sucralfate 100 mg/mL suspension 10 ml PO ACHS polyethylene glycol 3350 [Miralax] 17 gram powder in packet 17 g PO TID Referrals Referrals: Josue Blake MD [Primary Care Provider] -
[2023-02-06 13:00] LABS: Basophils # (auto) 0.02 K/uL (0-0.2); Basophils % (auto) 0.5 %; Eosinophils # (auto) 0.12 K/uL (0-0.50); Eosinophils % (auto) 2.8 %; Immature Granulocytes # (auto) 0.03 K/uL (0.01-0.20); Immature Granulocytes % (auto) 0.7 %; Lymphocytes # (auto) 0.82 K/uL (1.2-3.4); Mean Corpuscular Hemoglobin 37.4 pg (25.0-34.0); Mean Corpuscular Hgb Conc 36.1 g/dL (32.0-36.0); Mean Corpuscular Volume 103.4 fL (80.0-100.0); Mean Platelet Volume 9.8 fL (9.4-12.4); Monocytes # (auto) 0.29 K/uL (0.11-0.59); Monocytes % (auto) 6.7 %; Neutrophils # (auto) 3.03 K/uL (1.40-6.50); Neutrophils % (auto) 70.3 %; Platelet Count 115 K/uL (130-400); RDW Coefficient of Variation 17.2 % (11.5-14.5); RDW Standard Deviation 65.1 fL (36.4-46.3); Red Blood Count 3.48 M/uL (4.20-5.40); White Blood Count 4.31 K/ul (4.8-10.8)
[2023-02-06 13:01] LABS: Appearance Urine Turbid (Clear); Bacteria Urine Automated 4+ (Negative); Blood Urine Negative (Negative); Color Urine Dark Yellow; Epithelial Cell Urine Auto >30 /lpf (0-5); Glucose Urine UA Negative (Negative); Ketones Urine Trace (Negative); Leukocyte Esterase Urine 1+ (Negative); Nitrite Urine Positive (Negative); Protein Urine 1+ (Negative); Specific Gravity Urine 1.025 (1.000-1.030); Urobilinogen Urine Negative (Negative)
[2023-02-06 13:13] LABS: Albumin Globulin Ratio 1.2 (0.9-2); Albumin Level 4.1 gm/dl (3.4-5.0); BUN Creatinine Ratio 14.1 (10-20); Bilirubin,Total 0.9 mg/dl (0.2-1.0); Creatinine Clr Calc Pharmacy 92.9 ml/min; Est GFR (African American) 96.6 ml/min; Est GFR (Non-African American) 83.3 ml/min; Globulin 3.3 gm/dl (2.5-4.0); Potassium 3.6 mmol/L (3.5-5.1); Total Protein 7.4 gm/dl (6.0-8.3)
[2023-02-06 13:29] LABS: Bilirubin Urine 1+ (Negative)
[2023-02-06 13:40] LABS: Mucus Urine Present (None Prsent)
[2023-02-06 13:41] LABS: RBC Urine Automated 0-4 /hpf (0-4)
[2023-02-06] MEDS ORDERED: OPTIRAY 320 100ml IV ONE (13:44)
[2023-02-06] MEDS ORDERED: METOCLOPRAMIDE HCL INJ 5 MG/ML 2 ML VIAL IV STA (13:59)
--- NOTE | 2023-02-06 14:14 | CT Scan Report ---
CT abd pelvis IV con only CLINICAL HISTORY: abd TECHNIQUE: Helical axial images of the abdomen and pelvis were obtained and displayed. Automated dose lowering techniques and/or adjustment according to patient size were utilized for this exam. This e xam was performed with intravenous contrast. CT DOSE: 1388.04 mGy.cm COMPARISON: Comparison is made to CT abdomen pelvis 01/18/2023 FINDINGS: Lower chest: Bibasilar atelectasis versus scarring is seen. Liver: Unremarkable. No focal lesions are seen. Gallbladder and biliary tree: Patient is status post cholecystectomy. No intra- or extrahepatic bilia ry ductal dilation. Pancreas: Unremarkable, no focal lesions. Spleen: Unremarkable. Adrenals: Unremarkable. Kidneys and ureters: Subcentimeter hypodensities are too small to characterize. Left renal mass which was recently biopsied is again noted. Bladder: Unremarkable. Reproductive organs: Patient is status post hysterectomy. Bowel: Unremarkable. Lymph nodes Retroperitoneal: Unremarkable. Pelvic: Unremarkable. Mesenteric: Unremarkable. Peritoneum: Normal. Vessels: Unremarkable. Abdominal wall: Anterior abdominal soft tissue densities likely represent injection granulomata. Bones: Degenerative changes in the visualized spine. IMPRESSION: No acute abnormalities to explain patient's abdominal pain. ACT 112: Negative or not required by law. Electronically signed by: Lei Edge M.D. 02/06/2023 2:12 PM
[2023-02-06] MEDS ORDERED: MoRPHine SULFATE 4 MG/ML 1 ML CARP\\VIAL IV STA (14:24)
[2023-02-06] MEDS ORDERED: ONDANSETRON INJ 2 MG/ML 2 ML VIAL IV PRN (15:16)
[2023-02-06] MEDS ORDERED: POLYETHYLENE (MIRALAX) 17 GM PACK PO PRN (15:16)
[2023-02-06] MEDS ORDERED: ACETAMINOPHEN 325 MG TAB PO PRN (15:16)
--- NOTE | 2023-02-06 15:49 | History & Physical Report ---
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 N/V/abdominal pain Pt states she has not passed gas or had a BM for 10 days. Has been having N/V, notes she has been throwing up " green bile" CT abd/pelvis unremarkable- notes known kidney lesion/mass recently biopsied which was positive for lung primary adenocarcinoma. IV Reglan 10mg q6h with IV zofran ordered Pt NPO currently, can advance diet as tolerated once N/V controlled Per pt, Dilaudid 1mg given in the ED helped with abd pain- judicious use of narcotics in setting of possible delayed bowel transit/obstruction as possible cause of her pain Pt on morphine 15mg q4hprn with oxycodone 5mg q8h TID at home. Ordered IV tylenol for mild pain, her home oxycodone when able to tolerate PO, with IV morphine 2mg q6h for severe pain ordered with Miralax prn consider GI consult if symptoms persist Hx of Pulmonary Embolism - right lower lobe In setting of cancer, continue home Lovenox dosing Dysphagia Stable, continue home magic swizzle and sucralfate Primary Adenoca of RUL follows Dr. Charlton or heme/onc and Dr. Chaka Charlton of Rad/onc States due to start chemotherapy once more on the Follows with palliative care Pancytopenia related to chemotherapy follow cbc, monitor plt Anxiety/Mood disorder Pt in tears mentioning her 7 year old daughter's name (Anna) as she discussed her code status and wanting to be a full code. 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 States that she has not had a BM or passed gas for the last 10 days, concerned she might be constipated. Follows with Palliative Care and is on high dose narcotics that she takes to help with pain. States that the N/V is significant and just threw up green bile. Has not been able to eat or take her medications at home. States that she has a 7 year old daughter at home and became tearful when discussing her code status. States that she would like everything done to keep her going as she has her daughter at home. States she will be starting chemotherapy once more on the . Recent biopsy showed metastasis of her lung cancer to her left kidney. Allergies Allergy/AdvReac Type Severity Reaction Status Date / Time levofloxacin [From Levaquin] Allergy Severe THROAT Verified 02/06/23 15:16 SWELLS SHUT, ITCHY Penicillins Allergy Severe Anaphylaxis Verified 02/06/23 15:16 clindamycin Allergy Intermediate Rash Verified 02/06/23 15:16 bupropion [From Wellbutrin] AdvReac Severe suicidal Verified 02/06/23 15:16 ideation ANESTHESIA AdvReac Severe FLAT LINES Uncoded 02/06/23 15:16 PLASTIC AdvReac Severe SKIN PEELS Uncoded 02/06/23 15:16 Home Medications Medication Instructions Recorded Confirmed Type spironolactone 100 mg tablet 200 mg PO BID 09/24/19 02/06/23 History (Aldactone) albuterol sulfate 90 mcg/actuation 2 puff inhalation Q4H PRN 09/21/22 02/06/23 History aerosol inhaler (Ventolin HFA) COUGH/SOB/WHEEZING fluticasone propionate 230 2 inh inhalation BID 10/24/22 02/06/23 History mcg-salmeterol 21 mcg/actuation HFA inhaler (Advair HFA) lorazepam 0.5 mg tablet 0.5 mg PO TID PRN Anxiety 10/24/22 02/06/23 History oxycodone 5 mg capsule 5 mg PO Q8H PRN Pain 11/25/22 02/06/23 History Magic Mouthwash 300 mL mouthwash 10 ml mucous membrane ACHS #300 mL 12/04/22 02/06/23 Rx famotidine 10 mg tablet (Acid 10 mg PO BID #60 tabs 12/10/22 02/06/23 Rx Protection Manager (famotidine)) benzonatate 100 mg capsule 100 mg PO TID PRN cough #60 caps 12/22/22 02/06/23 Rx chlorpromazine 25 mg tablet 25 mg PO Q6H PRN Hiccups 12/31/22 02/06/23 History ondansetron HCl 8 mg tablet 8 mg PO Q8H PRN Other 01/06/23 02/06/23 History morphine 15 mg immediate release 15 mg PO Q4H PRN Other 01/13/23 02/06/23 History tablet pantoprazole 40 mg tablet,delayed 40 mg PO QAM #90 tabs 01/21/23 02/06/23 Rx release promethazine 12.5 mg tablet 12.5 mg PO Q6H PRN nausea and 01/21/23 02/06/23 Rx vomiting #30 tabs enoxaparin 100 mg/mL subcutaneous 90 mg subcut BID 01/27/23 02/06/23 History syringe polyethylene glycol 3350 17 gram 17 g PO TID 02/06/23 02/06/23 History oral powder packet (Miralax) sucralfate 100 mg/mL oral 10 ml PO ACHS 02/06/23 02/06/23 History suspension Past Med/Surg History Medical History (Updated 02/06/23 @ 16:06 by Tenzin Marsh DO) ADHD Asthma Encounter for pre-operative examination Endometriosis of the uterus, unspecified Primary adenocarcinoma of upper lobe of right lung (10/03/22) Pseudocholinesterase deficiency Systemic lupus erythematosus Tobacco abuse Surgical History H/O right wrist surgery H/O tubal ligation H/O: hysterectomy History of cholecystectomy Hx of appendectomy S/P bronchoscopy Family History Mother Cancer Breast Grandmother (Maternal) Cancer Lung Social History Smoking Status: Current every day smoker Tobacco Type: Cigarettes Cigarettes Per Day: 1/2 pack daily; Second Hand Exposure: Yes; Do You Dip or Chew Tobacco: No; Hx Alcohol Use: No Hx Substance Use: No Preferred Language: Indonesian Communication Ability: Effective Visual Impairment: No Limitations Hearing Ability: Normal Back Tacker Required: No Beliefs That Will Affect Care: None marital status: Single Current Living Situation: Spouse Current Living Situation Comment: engaged current occupational status: unemployed 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 Psych: tearful at times Neuro: No gross deficits HEENT: NC/AT CV: RRR, Normal s1, s2. No murmurs appreciated Resp: Breath sounds clear bilaterally, no increased effort of breathing. Abdomen: Soft, diffusely tender. Extremities: No edema in lower extremities bilaterally. Results & Data Results & Data Vital Signs (Past 12 Hours) Vital Signs Temp Pulse Resp BP Pulse Ox O2 Del Method 02/06/23 14:30 95 H 21 125/86 93 Room Air 02/06/23 14:00 97 H 13 135/98 98 Room Air 02/06/23 13:00 98 H 20 113/87 94 Room Air 02/06/23 13:03 85 02/06/23 12:10 36.8 C 105 H 20 114/73 95 Room Air Diagnostic Findings Abdomen/Pelvis CT 02/06/23 12:30 CT abd pelvis IV con only CLINICAL HISTORY: abd TECHNIQUE: Helical axial images of the abdomen and pelvis were obtained and displayed. Automated dose lowering techniques and/or adjustment according to patient size were utilized for this exam. This exam was performed with intravenous contrast. CT DOSE: 1388.04 mGy.cm COMPARISON: Comparison is made to CT abdomen pelvis 01/18/2023 FINDINGS: Lower chest: Bibasilar atelectasis versus scarring is seen. Liver: Unremarkable. No focal lesions are seen. Gallbladder and biliary tree: Patient is status post cholecystectomy. No intra- or extrahepatic biliary ductal dilation. Pancreas: Unremarkable, no focal lesions. Spleen: Unremarkable. Adrenals: Unremarkable. Kidneys and ureters: Subcentimeter hypodensities are too small to characterize. Left renal mass which was recently biopsied is again noted. Bladder: Unremarkable. Reproductive organs: Patient is status post hysterectomy. Bowel: Unremarkable. Lymph nodes Retroperitoneal: Unremarkable. Pelvic: Unremarkable. Mesenteric: Unremarkable. Peritoneum: Normal. Vessels: Unremarkable. Abdominal wall: Anterior abdominal soft tissue densities likely represent injection granulomata. Bones: Degenerative changes in the visualized spine. IMPRESSION: No acute abnormalities to explain patient's abdominal pain. ACT 112: Negative or not required by law. Electronically signed by: Lei Edge M.D. 02/06/2023 2:12 PM (7) Systemic lupus erythematosus Systemic lupus erythematosus organ involvement: unspecified Systemic lupus erythematosus type: unspecified Qualified Code(s): M32.9 - Systemic lupus joey thematosus, unspecified
[2023-02-06] MEDS ORDERED: ACETAMINOPHEN 1,000 MG/100 ML VIAL IV PRN (17:45)
[2023-02-06] MEDS ORDERED: ALBUTEROL HFA 8 GM INHALER INH PRN (17:45)
[2023-02-06] MEDS ORDERED: LORazepam 2 MG/1 ML VIAL IV PRN (17:45)
[2023-02-06] MEDS: MoRPHine SULFATE 2 MG/ML CARP IV PRN (18:11)
[2023-02-06] MEDS ORDERED: AZTREONAM 2,000 MG in DEXTROSE 5% 100 ML IV SCH (18:15)
[2023-02-06] MEDS: SUCRALFATE 1 GM/10 ML UDC PO SCH ×2 (18:36→19:47)
[2023-02-06] MEDS ORDERED: oxyCODONE HCL IR 5 MG TAB (IMMEDIATE RELEASE) PO PRN (19:15)
[2023-02-06] MEDS: FIRST - Mouthwash BLM 119 ML PO SCH (19:45)
[2023-02-06] MEDS: ENOXAPARIN 100 MG/1ML SYR SQ SCH (19:45)
[2023-02-06] MEDS: AZTREONAM 1,000 MG in DEXTROSE 5% 100 ML IV SCH (20:28)
[2023-02-06] MEDS ORDERED: BENZONATATE 100 MG CAPSULE PO PRN (20:57)
[2023-02-06] MEDS: METOCLOPRAMIDE HCL INJ 5 MG/ML 2 ML VIAL IV PRN (21:42)
[2023-02-06] MEDS ORDERED: PROMETHAZINE HCL 12.5 MG in SODIUM CHLORIDE 0.9% 50 ML IV PRN (23:11)
--- NOTE | 2023-02-06 23:11 | Communication Note ---
Date of Service: February 06, 2023 Patient complaining of vaginal yeast infection as per RN. AP Candidal vulvovaginitis Immunocompromised patient Diflucan every 72 hours for 2 doses
[2023-02-06] MEDS ORDERED: FLUCONAZOLE 50 MG TAB PO SCH (23:30)
[2023-02-07] MEDS: AZTREONAM 1,000 MG in DEXTROSE 5% 100 ML IV SCH ×3 (02:38→17:34)
[2023-02-07] MEDS: MoRPHine SULFATE 2 MG/ML CARP IV PRN ×2 (02:40→08:35)
[2023-02-07] MEDS: FIRST - Mouthwash BLM 119 ML PO SCH ×4 (08:38→19:38)
[2023-02-07] MEDS: FLUTICASONE/VILANTEROL 200/25MCG 14 PUFFS/INHALER INH SCH (08:39)
[2023-02-07] MEDS: SUCRALFATE 1 GM/10 ML UDC PO SCH ×2 (08:39→11:43)
[2023-02-07] MEDS: ENOXAPARIN 100 MG/1ML SYR SQ SCH ×2 (08:39→19:31)
--- NOTE | 2023-02-07 10:39 | Hospitalist Progress Note ---
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 She is no longer vomiting this morning and is requesting solid food Trial Relistor now with back up option enema if this doesn't work Amitiza recently prescribed by palliative physician but requres a prior auth before she can start it Will hold on ordering this until we see the effects of the Relistor Cont on home Miralax regimen TID Changed morphine PO to Nucynta PO to see if this helps to not effect the gut so much Explored non narcotic options, considering gabapentin (2) Vomiting: Plan: related to severe constipation vs gastroparesis also is on multiple medications that interact so there may be a polypharmacy side effect here. Cont supportive care efforts and plan above. (3) Primary adenocarcinoma of upper lobe of right lung: Plan: Per Oncology, she is transitioning to Alimta, carboplatin, Keytruda with Xgeve q6 weeks (4) Pulmonary embolism: Plan: Per outpatient records, CTA 12/31 showed PE with repeat negative. she has been on Lovenox and oncology just switched her to apixaban. However, with ongoing vomiting we will keep her on Lovenox SQ. (5) Systemic lupus erythematosus: Plan: chronic, stable. Cont current therapy (6) Tobacco abuse: Plan: Nicodern PRN (7) Chronic cough: Plan: Scheduled benzonatate that she takes every night for chronic cough and throat discomfort 2/2 XRT therapy. Lovenox Full Code Dispo-to home when moving her bowels and tolerating solid foods. I did notify GI physician regarding the consultation. I spent a total [id number] coordinating, documenting, and providing care for this patient excluding time spent in the performance of separately billed services Shweta Godinez DO [place] Hospitalist Admission and Anticipated Discharge Date Admission Date: February 06, 2023 Subjective 42 yo F with lung adenocarcinoma with mets presents with vomiting x 3 days and constipation x 10 days. suspect opiate induced constipation although patient also reports some constipation with chemotherapy. she is in the process of changing regimens we reviewed her medications in detail and she has multiple opportunities for polypharmacy with unintended side effects. We reviewed alternative options to narcotics for pain control including gabapentin, duloxetine and NSAIDs. Review of Systems Review of Systems: All systems were reviewed and negative except as indicated on HPI above. Physical Exam Physical Exam: CONSTITUTIONAL: WNWD, vitals as above, generally well-appearing, NAD EYES: normal conjunctivae, no scleral icterus, ENT: external ear and nose normal, NECK: trachea midline, RESPIRATORY: clear to auscultation bilaterally, no crackles, rales or wheezes, normal respiratory effort CARDIOVASCULAR: regular rate and rhythm, S1 and 2 heard without murmurs, gallops or rubs, no JVD, no peripheral edema GASTROINTESTINAL: soft, TTP in lower abdomen, ND MUSCULOSKELETAL: strength 5/5 throughout, head is normocephalic and atraumatic, ambulates independently SKIN: warm and dry NEUROLOGIC: CN 2-12 grossly intact, no sensory deficit, normal cognition, normal speech, no tremor PSYCHIATRIC: alert cooperative and oriented to person, place and time. Euthymic mood, makes good eye contact, language grossly intact, recent and remote memory grossly intact. Results & Data Results & Data Vital Signs (Past 12 Hours) Vital Signs Temp Pulse Resp BP Pulse Ox O2 Del Method 02/07/23 07:47 36.8 C 79 16 102/70 93 Room Air Laboratory Results Short CBC 02/06/23 Range/Units 12:39 WBC 4.31 L (4.8-10.8) K/ul Hgb 13.0 (12.0-16.0) g/dl Hct 36.0 L (37.0-47.0) % Plt Count 115 L (130-400) K/uL BMP 02/06/23 12:39 Sodium 138 Potassium 3.6 Chloride 105 Carbon Dioxide 27 BUN 12 Creatinine 0.85 Glucose 100 H Calcium 10.0 Liver Function 02/06/23 Range/Units 12:39 Total Bilirubin 0.9 (0.2-1.0) mg/dl AST 12 L (13-39) U/L ALT 14 (7-52) U/L Alkaline Phosphatase 90 (34-104) U/L Albumin 4.1 (3.4-5.0) gm/dl Urine 02/06/23 Range/Units 12:39 Urine Color Dark Yellow Urine Appearance Turbid A (Clear) Urine pH 6.0 (4.5-7.5) Ur Specific [place] 1.025 (1.000-1.030) Urine Protein 1+ H (Negative) Urine Glucose (UA) Negative (Negative) Medications Administered Current Inpatient Medications Albuterol (Albuterol Hfa 8 Gm Inhaler) 2 puffs INH Q4H PRN PRN Reason: COUGH/SOB/WHEEZING Stop: 03/08/23 17:44 Apixaban (Apixaban 5 Mg Tablet) 5 mg PO BID MATI Stop: 03/09/23 20:59 Benzonatate (Benzonatate 100 Mg Capsule) 100 mg PO TID PRN PRN Reason: Cough Stop: 03/08/23 20:56 Last Admin: 02/06/23 23:18 Dose: 100 mg Fluconazole (Fluconazole 50 Mg Tab) 150 mg PO Q3D@2100 [facility] Stop: 02/09/23 21:01 Last Admin: 02/06/23 23:59 Dose: 150 mg Fluticasone/Vilanterol (Fluticasone/Vilanterol 200/25mcg 14 Puffs/Inhaler) 1 puffs INH DAILY MATI Stop: 03/09/23 08:59 Last Admin: 02/07/23 08:39 Dose: 1 puffs Folic Acid (Folic Acid 1 Mg Tab) 1 mg PO DAILY MATI Stop: 03/10/23 08:59 Acetaminophen (Ofirmev) 1,000 mg in 100 mls @ 400 mls/hr IV Q8H PRN PRN Reason: mild pain Stop: 02/09/23 17:44 Aztreonam 1,000 mg/ Dextrose 110 mls @ 100 mls/hr IV Q8H MATI; Protocol Stop: 02/16/23 18:29 Last Infusion: 02/07/23 03:45 Dose: Infused Promethazine HCl 12.5 mg/ (Sodium Chloride) 50.5 mls @ 202 mls/hr IV Q6H PRN PRN Reason: Nausea And Vomiting Stop: 03/08/23 23:10 Lorazepam (Lorazepam 2 Mg/1 Ml Vial) 0.5 mg IV Q8H PRN PRN Reason: Anxiety/Agitation Stop: 03/08/23 17:44 Last Admin: 02/06/23 23:17 Dose: 0.5 mg Metoclopramide HCl (Metoclopramide Hcl Inj 5 Mg/Ml 2 Ml Vial) 10 mg IV Q6H PRN PRN Reason: Nausea Stop: 03/08/23 17:44 Last Admin: 02/06/23 21:42 Dose: 10 mg Morphine Sulfate (Morphine Sulfate 2 Mg/Ml Carp) 2 mg IV Q6H PRN PRN Reason: Severe Pain (Scale 7, 8, 9,10) Stop: 02/20/23 17:44 Last Admin: 02/07/23 08:35 Dose: 2 mg Multi-Ingredient Mouthwash/Gargle (First - Mouthwash Blm 119 Ml) 5 ml PO ACHS [facility] Stop: 03/08/23 20:59 Last Admin: 02/07/23 08:38 Dose: 5 ml Oxycodone HCl (Oxycodone Hcl Ir 5 Mg Tab (Immediate Release)) 5 mg PO Q8H PRN PRN Reason: moderate pain Stop: 02/20/23 19:14 Last Admin: 02/06/23 21:41 Dose: 5 mg Polyethylene Glycol (Polyethylene (Miralax) 17 Gm Pack) 17 gm PO DAILY PRN PRN Reason: Constipation Stop: 03/08/23 15:15 Sucralfate (Sucralfate 1 Gm/10 Ml Udc) 1 gm PO [facility] Stop: 03/08/23 17:44 Last Admin: 02/07/23 08:39 Dose: 1 gm (5) Systemic lupus erythematosus Systemic lupus erythematosus organ involvement: unspecified Systemic lupus erythematosus type: unspecified Qualified Code(s): M32.9 - Systemic lupus erythematosus, unspecified
[2023-02-07] MEDS ORDERED: TAPENTADOL HCL 50 MG TAB PO PRN (11:01)
[2023-02-07] MEDS ORDERED: METHYLNALTREXONE BROMIDE 12 MG/0.6 ML VIAL SQ ONE (11:05)
[2023-02-07] MEDS ORDERED: LORazepam 0.5 MG TAB PO PRN (11:09)
[2023-02-07] MEDS ORDERED: SPIRONOLACTONE 100 MG TAB PO SCH (11:15)
[2023-02-07] MEDS ORDERED: NICOTINE 21 MG/24 HR TDSY TD PRN (11:50)
[2023-02-07] MEDS: UMECLIDINIUM BROMIDE 62.5MCG/BLISTER 7 PUFFS/INHALER INH SCH (12:36)
[2023-02-07] MEDS: FAMOTIDINE 10 MG TABLET PO SCH ×2 (12:36→19:32)
[2023-02-07] MEDS: PANTOprazole 40 MG TAB PO SCH (12:36)
[2023-02-07] MEDS: HEPARIN 100 UNIT/ML 5ML FLUSH FLUSH PRN ×3 (12:48→20:32)
--- NOTE | 2023-02-07 13:30 | Gastrointestinal Consultation ---
Date of Consultation February 07, 2023 History of Present Illness Attending Physician: Shweta Godinez DO History of Present Illness 42 yo female with met lung cancer on carbot/taxol last given December, also chronic pain on narcs with recent transition form Melody to MSIR 15 which she takes twice daily. She reports chronic constipation for the past 3 months with BM q 3 days on 2 senna daily, Miralax BID, also precribed Amitizia 24 BID niow admit for obstipation x 10 days, accompanied by increased abd distention, diffuse abdominal cramping, and 1 day of bilious vomiting. On admission, calcium levels WNL, CT without gastric distention, + mild consipation with cecal diameter 4-5 cm, no evidence of SBO. Home med list also includes carafate, Zofran, oxycodone, phenergan, Protonix, carafate. She received Relistor this afternoon. She has used the bathroom with passage of small amt of flatus/stool, and needs to use the bathroom again during our interview. She is tolerating reg diet. On exam, she is walking around and appears comfortable Abd is soft and ND, mod cody, no tenderness, no diastasis and no hernia. A/P: Constipation - h/o lung Ca, presumably from narcs/meds/chemo No imaging evidence of SBO/gastroparesis - Hold Carafate, cont Relistor, judicious use of laxatives. If symptoms persist tomorrow, then can repeat Relistor tomorrow. - Consider discussing Marinol with palliative care. Please call with questions. Allergies Allergy/AdvReac Type Severity Reaction Status Date / Time levofloxacin [From Levaquin] Allergy Severe THROAT Verified 02/06/23 15:16 SWELLS SHUT, ITCHY Penicillins Allergy Severe Anaphylaxis Verified 02/06/23 15:16 clindamycin Allergy Intermediate Rash Verified 02/06/23 15:16 bupropion [From Wellbutrin] AdvReac Severe suicidal Verified 02/06/23 15:16 ideation duloxetine AdvReac Severe suicidal Verified 02/07/23 11:27 ideations ANESTHESIA AdvReac Severe FLAT LINES Uncoded 02/06/23 15:16 PLASTIC AdvReac Severe SKIN PEELS Uncoded 02/06/23 15:16 Home Medications Medication Instructions Recorded Confirmed Type spironolactone 100 mg tablet 200 mg PO BID 09/24/19 02/06/23 History (Aldactone) albuterol sulfate 90 mcg/actuation 2 puff inhalation Q4H PRN 09/21/22 02/06/23 History aerosol inhaler (Ventolin HFA) COUGH/SOB/WHEEZING fluticasone propionate 230 2 inh inhalation BID 10/24/22 02/06/23 History mcg-salmeterol 21 mcg/actuation HFA inhaler (Advair HFA) lorazepam 0.5 mg tablet 0.5 mg PO TID PRN Anxiety 10/24/22 02/06/23 History oxycodone 5 mg capsule 5 mg PO Q8H PRN Pain 11/25/22 02/06/23 History Magic Mouthwash 300 mL mouthwash 10 ml mucous membrane ACHS #300 mL 12/04/22 02/06/23 Rx famotidine 10 mg tablet (Acid 10 mg PO BID #60 tabs 12/10/22 02/06/23 Rx Data Analysis Assistant (famotidine)) benzonatate 100 mg capsule 100 mg PO TID PRN cough #60 caps 12/22/22 02/06/23 Rx chlorpromazine 25 mg tablet 25 mg PO Q6H PRN Hiccups 12/31/22 02/06/23 History ondansetron HCl 8 mg tablet 8 mg PO Q8H PRN Other 01/06/23 02/06/23 History morphine 15 mg immediate release 15 mg PO Q4H PRN Other 01/13/23 02/06/23 History tablet pantoprazole 40 mg tablet,delayed 40 mg PO QAM #90 tabs 01/21/23 02/06/23 Rx release promethazine 12.5 mg tablet 12.5 mg PO Q6H PRN nausea and 01/21/23 02/06/23 Rx vomiting #30 tabs polyethylene glycol 3350 17 gram 17 g PO TID 02/06/23 02/06/23 History oral powder packet (Miralax) sucralfate 100 mg/mL oral 10 ml PO ACHS 02/06/23 02/06/23 History suspension apixaban 5 mg tablet (Eliquis) 5 mg PO BID 02/07/23 02/07/23 History dextroamphetamine-amphetamine 10 See Rx Instructions .Route .COMPLEX 02/07/23 02/07/23 History mg tablet fluticasone propionate 50 2 spray intranasal BID 02/07/23 02/07/23 History mcg/actuation nasal spray,suspension folic acid 1 mg tablet 1 mg PO DAILY 02/07/23 02/07/23 History lubiprostone 24 mcg capsule 24 mcg PO BID 02/07/23 02/07/23 History umeclidinium 62.5 mcg/actuation 62.5 mcg inhalation DAILY 02/07/23 02/07/23 History blister powder for inhalation (Incruse Ellipta) Patient History Medical History (Updated 02/07/23 @ 11:44 by Shweta Godinez DO) ADHD Asthma Encounter for pre-operative examination Endometriosis of the uterus, unspecified Primary adenocarcinoma of upper lobe of right lung (10/03/22) Pseudocholinesterase deficiency Systemic lupus erythematosus Tobacco abuse Surgical History H/O right wrist surgery H/O tubal ligation H/O: hysterectomy History of cholecystectomy Hx of appendectomy S/P bronchoscopy Family History Mother Cancer Breast Grandmother (Maternal) Cancer Lung Social History Smoking Status: Current every day smoker Tobacco Type: Cigarettes Cigarettes Per Day: 1/2 pack daily; Second Hand Exposure: Yes; Do You Dip or Chew Tobacco: No; Hx Alcohol Use: No Hx Substance Use: No Preferred Language: Portuguese Communication Ability: Effective Visual Impairment: No Limitations Hearing Ability: Normal Ventilation Equipment Tender Required: No Beliefs That Will Affect Care: None marital status: Single Current Living Situation: Spouse Current Living Situation Comment: engaged current occupational status: unemployed 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
[2023-02-07] MEDS: HYDROmorphone INJ 0.5 MG/0.5 ML SYR IV PRN ×2 (14:21→20:32)
[2023-02-07] MEDS: POLYETHYLENE (MIRALAX) 17 GM PACK PO SCH ×2 (14:25→19:31)
[2023-02-07] MEDS ORDERED: Nursing to Pharmacy Communication SCH (16:00)
[2023-02-07] MEDS: METOCLOPRAMIDE HCL INJ 5 MG/ML 2 ML VIAL IV PRN (17:29)
[2023-02-07] MEDS: SPIRONOLACTONE 100 MG TAB PO SCH (19:32)
[2023-02-07] MEDS ORDERED: APIXABAN 5 MG TABLET PO SCH (21:00)
[2023-02-07] MEDS ORDERED: BENZONATATE 100 MG CAPSULE PO SCH (21:00)
[2023-02-08] MEDS: AZTREONAM 1,000 MG in DEXTROSE 5% 100 ML IV SCH ×2 (02:03→09:46)
[2023-02-08] MEDS: HYDROmorphone INJ 0.5 MG/0.5 ML SYR IV PRN ×4 (02:33→18:50)
[2023-02-08] MEDS: HEPARIN 100 UNIT/ML 5ML FLUSH FLUSH PRN ×3 (03:06→10:57)
[2023-02-08] MEDS ORDERED: MoRPHine SULFATE IR 15 MG TAB (IMMEDIATE RELEASE) PO PRN (07:48)
--- NOTE | 2023-02-08 07:53 | Hospitalist Progress Note ---
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 vomiting has resolved, tolerating PO Relistor relieved constipation yesterday and she is requesting a repeat dose today. Cont miralax Amitiza recently prescribed by palliative physician but requires a prior auth before she can start it she will followup on this. Cont on home Miralax regimen TID Cont Morphine per home regimen and cont to explored non narcotic options, considering gabapentin Marinol is another consideration per GI. (2) Vomiting: Plan: related to severe constipation vs gastroparesis resolved, cont per plan above. (3) Primary adenocarcinoma of upper lobe of right lung: Plan: Per Oncology, she is transitioning to Alimta, carboplatin, Keytruda with Xgeve q6 weeks (4) Pulmonary embolism: Plan: Per outpatient records, CTA 12/31 showed PE with repeat negative. she has been on Lovenox and oncology just switched her to apixaban. However, with ongoing vomiting we will keep her on Lovenox SQ. I explained given the abdominal e cchymosis and pain at injection site that she has a choice on which agent to use. She will decide as outpatient. (5) Systemic lupus erythematosus: Plan: chronic, stable. Cont current therapy (6) Tobacco abuse: Plan: Nicodern PRN (7) Chronic cough: Plan: Scheduled benzonatate that she takes every night for chronic cough and throat discomfort 2/2 XRT therapy. Lovenox Full Code Dispo-to home later today if still feeling well after the Relistor. at bedside and was updated on the plan. I spent a total [id number] coordinating, documenting, and providing care for this patient excluding time spent in the performance of separately billed services Shweta Godinez DO [facility] Hospitalist Admission and Anticipated Discharge Date Admission Date: February 06, 2023 Subjective 42 yo F with lung adenocarcinoma with mets presents with vomiting x 3 days and constipation x 10 days. improvement with Relistor and continued Miralax yesterday She is requesting a second dose again today Nucytna didn't work for her, transitioning back to the morphine per home regimen. she is now eating and abdomen stock drier tender but improved. tenderness site is especially where she has some ecchymosis from receiving her Lovenox injections. I discussed her pancytopenia with her and that Dr. Charlton will likely be following this in outpatient setting prior to next chemo session she responded this is a normal thing with her chemo. Review of Systems Review of Systems: All systems were reviewed and negative except as indicated on HPI above. Physical Exam Physical Exam: CONSTITUTIONAL: WNWD, vitals as above, generally well-appearing, NAD EYES: normal conjunctivae, no scleral icterus, ENT: external ear and nose normal, NECK: trachea midline, RESPIRATORY: clear to auscultation bilaterally, no crackles, rales or wheezes, normal respiratory effort CARDIOVASCULAR: regular rate and rhythm, S1 and 2 heard without murmurs, gallops or rubs, no JVD, no peripheral edema GASTROINTESTINAL: soft, TTP in lower abdomen-improved, ND MUSCULOSKELETAL: strength 5/5 throughout, head is normocephalic and atraumatic, ambulates independently SKIN: warm and dry NEUROLOGIC: CN 2-12 grossly intact, no sensory deficit, normal cognition, normal speech, no tremor PSYCHIATRIC: alert cooperative and oriented to person, place and time. Euthymic mood, makes good eye contact, language grossly intact, recent and remote memory grossly intact. Results & Data Results & Data Vital Signs (Past 12 Hours) Vital Signs Temp Pulse Resp BP Pulse Ox O2 Del Method 02/07/23 21:20 36.8 C 87 20 110/71 97 Room Air Laboratory Results Short CBC 02/08/23 Range/Units 08:39 WBC 3.28 L (4.8-10.8) K/ul Hgb 10.7 L (12.0-16.0) g/dl Hct 29.7 L (37.0-47.0) % Plt Count 103 L (130-400) K/uL BMP 02/08/23 08:39 Sodium 136 Potassium 3.6 Chloride 104 Carbon Dioxide 27 BUN 8 Creatinine 0.81 Glucose 120 H Calcium 9.1 Medications Administered Current Inpatient Medications Albuterol (Albuterol Hfa 8 Gm Inhaler) 2 puffs INH Q4H PRN PRN Reason: COUGH/SOB/WHEEZING Stop: 03/08/23 17:44 Benzonatate (Benzonatate 100 Mg Capsule) 100 mg PO HS MATI Stop: 03/09/23 20:59 Last Admin: 02/07/23 19:32 Dose: 100 mg Enoxaparin Sodium (Enoxaparin 100 Mg/1ml Syr) 100 mg SQ BID [facility] Stop: 03/09/23 20:59 Last Admin: 02/07/23 19:31 Dose: 100 mg Famotidine (Famotidine 10 Mg Tablet) 10 mg PO BID [facility] Stop: 03/09/23 11:14 Last Admin: 02/07/23 19:32 Dose: 10 mg Fluconazole (Fluconazole 50 Mg Tab) 150 mg PO Q3D@2100 [facility] Stop: 02/09/23 21:01 Last Admin: 02/06/23 23:59 Dose: 150 mg Fluticasone/Vilanterol (Fluticasone/Vilanterol 200/25mcg 14 Puffs/Inhaler) 1 puffs INH DAILY [facility] Stop: 03/09/23 08:59 Last Admin: 02/07/23 08:39 Dose: 1 puffs Folic Acid (Folic Acid 1 Mg Tab) 1 mg PO DAILY [facility] Stop: 03/10/23 08:59 Heparin Sodium (Porcine) (Heparin 100 Unit/Ml 5ml Flush) 5 ml FLUSH PRN PRN PRN Reason: Flush Stop: 03/09/23 10:38 Last Admin: 02/08/23 03:06 Dose: 5 ml Hydromorphone HCl (Hydromorphone Inj 0.5 Mg/0.5 Ml Syr) 0.5 mg IV Q6H PRN PRN Reason: Severe Pain (Scale 7, 8, 9,10) Stop: 02/21/23 11:01 Last Admin: 02/08/23 02:33 Dose: 0.5 mg Acetaminophen (Ofirmev) 1,000 mg in 100 mls @ 400 mls/hr IV Q8H PRN PRN Reason: mild pain Stop: 02/09/23 17:44 Aztreonam 1,000 mg/ Dextrose 110 mls @ 100 mls/hr IV Q8H [facility]; Protocol Stop: 02/16/23 18:29 Last Infusion: 02/08/23 03:09 Dose: Infused Promethazine HCl 12.5 mg/ (Sodium Chloride) 50.5 mls @ 202 mls/hr IV Q6H PRN PRN Reason: Nausea And Vomiting Stop: 03/08/23 23:10 Lorazepam (Lorazepam 2 Mg/1 Ml Vial) 0.5 mg IV Q8H PRN PRN Reason: Anxiety/Agitation Stop: 03/08/23 17:44 Last Admin: 02/06/23 23:17 Dose: 0.5 mg Lorazepam (Lorazepam 0.5 Mg Tab) 0.5 mg PO TID PRN PRN Reason: Anxiety Stop: 03/09/23 11:08 Metoclopramide HCl (Metoclopramide Hcl Inj 5 Mg/Ml 2 Ml Vial) 10 mg IV Q6H PRN PRN Reason: Nausea Stop: 03/08/23 17:44 Last Admin: 02/07/23 17:29 Dose: 10 mg Miscellaneous (Remove Nicoderm Patch) 1 each N/A DAILY@0859 [facility] Stop: 03/10/23 08:58 Morphine Sulfate (Morphine Sulfate Ir 15 Mg Tab (Immediate Release)) 15 mg PO Q4H PRN PRN Reason: severe pain 7+ Stop: 02/22/23 07:47 Multi-Ingredient Mouthwash/Gargle (First - Mouthwash Blm 119 Ml) 10 ml PO ACHS [facility] Stop: 03/09/23 16:29 Last Admin: 02/07/23 19:38 Dose: 10 ml Nicotine (Nicotine 21 Mg/24 Hr Tdsy) 21 mg TD QAM PRN PRN Reason: cravings Stop: 03/10/23 08:59 Pantoprazole Sodium (Pantoprazole 40 Mg Tab) 40 mg PO QAM [facility] Stop: 03/09/23 11:14 Last Admin: 02/07/23 12:36 Dose: 40 mg Polyethylene Glycol (Polyethylene (Miralax) 17 Gm Pack) 17 gm PO DAILY PRN PRN Reason: Constipation Stop: 03/08/23 15:15 Polyethylene Glycol (Polyethylene (Miralax) 17 Gm Pack) 17 gm PO TID [facility] Stop: 03/09/23 13:59 Last Admin: 02/07/23 19:31 Dose: 17 gm Spironolactone (Spironolactone 100 Mg Tab) 200 mg PO BID [facility] Stop: 03/09/23 20:59 Last Admin: 02/07/23 19:32 Dose: 200 mg Umeclidinium [place] (Umeclidinium [place] 62.5mcg/Blister 7 Puffs/Inhaler) 1 puffs INH DAILY MATI Stop: 03/09/23 11:14 Last Admin: 02/07/23 12:36 Dose: 1 puffs (5) Systemic lupus erythematosus Systemic lupus erythematosus organ involvement: unspecified Systemic lupus erythematosus type: unspecified Qualified Code(s): M32.9 - Systemic lupus erythematosus, unspecified
[2023-02-08] MEDS: FIRST - Mouthwash BLM 119 ML PO SCH ×3 (08:27→17:04)
[2023-02-08] MEDS ORDERED: FOLIC ACID 1 MG TAB PO SCH (09:00)
[2023-02-08 09:12] LABS: Hematocrit (blood only) 29.7 % (37.0-47.0); Hemoglobin 10.7 g/dl (12.0-16.0); Mean Corpuscular Hemoglobin 37.4 pg (25.0-34.0); Mean Corpuscular Volume 103.8 fL (80.0-100.0); Mean Platelet Volume 10.1 fL (9.4-12.4); Platelet Count 103 K/uL (130-400); RDW Coefficient of Variation 16.4 % (11.5-14.5); RDW Standard Deviation 62.7 fL (36.4-46.3); Red Blood Count 2.86 M/uL (4.20-5.40); White Blood Count 3.28 K/ul (4.8-10.8)
[2023-02-08 09:26] LABS: BUN Creatinine Ratio 9.9 (10-20); Calcium 9.1 mg/dl (8.6-10.3); Creatinine Clr Calc Pharmacy 97.6 ml/min; Est GFR (African American) 102.4 ml/min; Est GFR (Non-African American) 88.3 ml/min; Potassium 3.6 mmol/L (3.5-5.1)
[2023-02-08] MEDS: ENOXAPARIN 100 MG/1ML SYR SQ SCH (09:31)
[2023-02-08] MEDS: UMECLIDINIUM BROMIDE 62.5MCG/BLISTER 7 PUFFS/INHALER INH SCH (09:32)
[2023-02-08] MEDS: FLUTICASONE/VILANTEROL 200/25MCG 14 PUFFS/INHALER INH SCH (09:32)
[2023-02-08] MEDS: FAMOTIDINE 10 MG TABLET PO SCH (09:32)
[2023-02-08] MEDS: POLYETHYLENE (MIRALAX) 17 GM PACK PO SCH ×2 (09:33→13:51)
[2023-02-08] MEDS: PANTOprazole 40 MG TAB PO SCH (09:33)
[2023-02-08] MEDS: SPIRONOLACTONE 100 MG TAB PO SCH (09:33)
[2023-02-08] MEDS ORDERED: MoRPHine SULFATE IR 15 MG TAB (IMMEDIATE RELEASE) PO ONE (12:13)
[2023-02-08] MEDS ORDERED: METHYLNALTREXONE BROMIDE 12 MG/0.6 ML VIAL SQ ONE (12:13)
[2023-02-08] MEDS ORDERED: ENOXAPARIN 100 MG/1ML SYR SQ SCH (21:00)
== END 2023-02-08 19:23 | disposition home or self-care (01) | DRG 391 ==
LOC: ED 12:06 → SUATTDRO 15:53 → EDINP 15:53 → 3W 17:41

== ENCOUNTER 2023-03-03 20:52 | Inpatient (IN) ==
[2023-03-03 22:12] LABS: Hematocrit (blood only) 23.7 % (37.0-47.0); Hemoglobin 8.5 g/dl (12.0-16.0); Mean Corpuscular Hemoglobin 36.8 pg (25.0-34.0); Mean Corpuscular Hgb Conc 35.9 g/dL (32.0-36.0); Mean Corpuscular Volume 102.6 fL (80.0-100.0); RDW Coefficient of Variation 12.5 % (11.5-14.5); RDW Standard Deviation 45.7 fL (36.4-46.3); Red Blood Count 2.31 M/uL (4.20-5.40); White Blood Count 1.14 K/ul (4.8-10.8)
[2023-03-03 22:26] LABS: Alanine Aminotransferase 7 U/L (7-52); Albumin Globulin Ratio 1.4 (0.9-2); Albumin Level 3.7 gm/dl (3.4-5.0); Alkaline Phosphatase 90 U/L (34-104); Anion Gap 7 (3-11); Aspartate Aminotransferase 9 U/L (13-39); BUN Creatinine Ratio 9.7 (10-20); Bilirubin,Total 0.6 mg/dl (0.2-1.0); Blood Urea Nitrogen 9 mg/dl (6-23); Calcium 8.8 mg/dl (8.6-10.3); Carbon Dioxide 28 mmol/L (21-32); Chloride 101 mmol/L (98-107); Est GFR (African American) 86.6 ml/min; Est GFR (Non-African American) 74.7 ml/min; Globulin 2.7 gm/dl (2.5-4.0); Glucose 115 mg/dl (70-99(Fasting)); Magnesium 1.8 mg/dl (1.7-2.4); Potassium 3.4 mmol/L (3.5-5.1); Sodium 136 mmol/L (136-145); Total Protein 6.4 gm/dl (6.0-8.3)
[2023-03-03 22:30] LABS: Mean Platelet Volume 10.5 fL (9.4-12.4); Platelet Count 67 K/uL (130-400); Platelet Estimate Decreased (Normal)
[2023-03-03 22:41] LABS: INR 0.9 (0.9-1.1); Partial Thromboplastin Time 27.1 Seconds (21.0-31.0); Prothrombin Time 10.4 Seconds (9.0-12.0)
[2023-03-04 00:28] LABS: Troponin I High Sensitivity 7.6 pg/ml (0-14)
[2023-03-04] MEDS ORDERED: HYDROmorphone INJ 0.5 MG/0.5 ML SYR IV STA ×3 (01:00→15:21)
[2023-03-04] MEDS ORDERED: dexAMETHasone**PF** 10 MG/ML VIAL IV ONE (01:00)
[2023-03-04] MEDS ORDERED: ONDANSETRON INJ 2 MG/ML 2 ML VIAL IV STA (01:00)
[2023-03-04] MEDS ORDERED: SODIUM CHLORIDE 0.9% 500 ML IV ONE (01:01)
[2023-03-04] MEDS ORDERED: SODIUM CHLORIDE 0.9% 1,000 ML IV SCH ×3 (01:15→15:30)
--- NOTE | 2023-03-04 01:26 | CT Scan Report ---
Exam(s): CT HEAD Without Contrast EXAM: CT Head Without Intravenous Contrast CLINICAL HISTORY: Reason for exam: Neuro deficit, acute, stroke suspected. reports severe headache that started when she woke up and reports she's having TIA sypmptoms woke up at 0630 in normal health, as per patient holding her head in triage and is slow to respond states he got home from work and he couldn't understand her words and she was confused states lights and sounds are bothering her also reports she has metastatic cancer (to include the brain) TECHNIQUE: Axial computed tomography images of the head/brain without intravenous contrast. CTDI is 37.32 mGy and DLP is 625.8 mGy-cm. Automated exposure control was utilized for the study. A dose lowering technique was utilized adhering to the principles of ALARA. COMPARISON: MRI brain dated 10/20/2022, outside hospital study. Report not available FINDINGS: Brain: Approximately 6 cm area of white matter hypoattenuation/vasogenic edema in the right parietotemporal lobes. New since the prior MRI. Associated regional mass-effect with effacement of sulci, mild compression of the right lateral ventricle, and 6 mm leftward midline shift. New mild white matter hypoattenuation/vasogenic edema in bilateral occipital lobes and possibly right cerebellum. Basilar cisterns are patent. No intracranial hemorrhage. Ventricles: Unremarkable. No ventriculomegaly. Bones/joints: Unfused posterior C1 arch, partially visualized, variant anatomy. No acute fracture. Soft tissues: Unremarkable. Sinuses: Unremarkable as visualized. No acute sinusitis. Mastoid air cells: Unremarkable as visualized. No mastoid effusion. IMPRESSION: 1. Approximately 6 cm area of white matter hypoattenuation/vasogenic edema in the right parietotemporal lobes. New since the prior MRI. Associated regional mass-effect and 6 mm leftward midline shift. 2. New mild white matter hypoattenuation/vasogenic edema in bilateral occipital lobes and possibly right cerebellum. 3. Given history, above findings are worrisome for underlying metastatic lesions. Recommend MRI without and with contrast to further evaluate. Communications: 03/04/23 01:19 Call Doctor Regarding Above results, called Dr. Roper on 03/04 01:19 (-04:00) Electronically signed by: Arnaud Burrell M.D. 03/04/23 01:25 AM
[2023-03-04] MEDS ORDERED: LORazepam 1 MG TAB SL STA (01:46)
[2023-03-04 02:10] LABS: Eosinophils # (auto) 0.04 K/uL (0.00-0.50); Eosinophils % (auto) 3.7 %; Lymphocytes # (auto) 0.62 K/uL (1.20-3.40); Lymphocytes % (auto) 57.9 %; Monocytes # (auto) 0.15 K/uL (0.11-0.59); Neutrophils # (auto) 0.26 K/uL (1.40-6.50); Neutrophils % (auto) 24.4 %
[2023-03-04] MEDS: HYDROmorphone INJ 0.5 MG/0.5 ML SYR IV PRN ×9 (02:42→23:49)
--- NOTE | 2023-03-04 04:00 | History & Physical Report ---
Date of Service March 04, 2023 Assessment & Plan (1) Metastasis to brain: Plan: 42-year-old female with past med significant for metastatic lung cancer to kidneys and brain, lupus, bipolar disorder, ADHD, fibromyalgia, Raynaud's disease, pseudocholinesterase deficiency, PCOS comes because severe headaches and confusion and found to have brain mets. Brain mets and severe headaches Metastatic lung cancer diagnosed in August CT scan of head showing 6 cm area of white matter hypoattenuation/vasogenic edema with associated mass effect and 6 mm leftward midline shift. S/p radiation treatment to the chest in December She is currently getting chemo and had first cycle ER discussed with heme-onc Dr.Nilesh Charlton and recommend to keep the patient here and consult radiation oncology in a.m. Received a dose of IV Decadron 10 mg We will continue with IV Decadron 4 mg every 6 hours Pain control MRI head Await radiation oncology input Metastatic lung cancer Management as per heme-onc and radiation oncology Dysphagia Possible radiation esophagitis Patient had an esophageal dilatation in December and thinks she may needed again We will consult GI in a.m. continue Protonix and sucralfate as she had esophageal ulcer in the last EGD. History of pulmonary embolism CTA chest december 31 2022 Right lower lobe subsegmental PE. CTA chest january 05 2023 No PE. On Eliquis. discussed with Heme/onco. To hold eliquis for now because of low platelets and brain mets restart of eliquis as per heme/onco. Pancytopenia On chemo follow labs today labs neutropenia will do neutropenic precautions SLE Currently not on any treatment Follows with rheumatology PCOS on Aldactone. DVT prophylaxis Scds for now Disposition med/telemetry Full code History of Present Illness Chief Complaint: Severe headache and confusion Primary Care Provider: Josue Blake MD 42-year-old female with past med significant for metastatic lung cancer to kidneys and brain, lupus, bipolar disorder, ADHD, fibromyalgia, Raynaud's disease, pseudocholinesterase deficiency, PCOS comes because of severe headaches and confusion and found to have brain mets. Patient says last couple of days having headaches but progressive got very severe. Today she also seems more confused and somewhat slurred speech as per . Speech is improved. Vision is not a great. Feels some pressure behind the eyes. Some fullness in the right ear. Has some cough. No runny nose. Afebrile. Appetite is down. And having some difficulty swallowing. Patient states after radiation treatment in December she has some dysphagia from radiation and had a EGD and dilatation of esophagus and thinks symptoms are coming back. Appetite is down. No chest pain or shortness of breath currently. No abdominal pain. Constipated. Urine is orange and reddish color because of her medications. Currently resting comfortably and hemodynamically stable. Past medical history as mentioned above Past surgical history appendectomy, bronchoscopy, cholecystectomy, cystourethroscopy, ligation of oviducts, hysterectomy, repair of bladder defect, Social history . Smokes 1 pack a day for 33 years. Currently smoking 4 cigarettes daily. No alcohol use. No drug use Family history mother had breast cancer. Maternal aunt has breast cancer. Allergies Allergy/AdvReac Type Severity Reaction Status Date / Time levofloxacin [From Levaquin] Allergy Severe THROAT Verified 03/04/23 01:31 SWELLS SHUT, ITCHY--RASH PER [facility] Penicillins Allergy Severe Anaphylaxis Verified 03/04/23 01:31 clindamycin Allergy Intermediate CAUSED A Verified 03/04/23 01:31 YEAST INFECTION X 6 MONTHS povidone-iodine Allergy Intermediate Rash Verified 03/04/23 01:31 [From Betadine] silver Allergy Intermediate Rash Verified 03/04/23 01:31 [From Tegaderm AG Mesh] bupropion [From Wellbutrin] AdvReac Severe suicidal Verified 03/04/23 01:31 ideation duloxetine AdvReac Severe suicidal Verified 03/04/23 01:31 ideations sulfamethoxazole AdvReac Mild YEAST Verified 03/04/23 01:31 [From Bactrim] INFECTION trimethoprim [From Bactrim] AdvReac Mild YEAST Verified 03/04/23 01:31 INFECTION ANESTHESIA AdvReac Severe PER Uncoded 03/04/23 01:31 [facility]--PSEUDOCHLOINESTERASE---FLAT LINES PLASTIC AdvReac Severe SKIN PEELS Uncoded 03/04/23 01:31 Home Medications Medication Instructions Recorded Confirmed Type spironolactone 100 mg tablet 200 mg PO BID 09/24/19 03/04/23 History (Aldactone) albuterol sulfate 90 mcg/actuation 2 puff inhalation Q4H PRN 09/21/22 03/04/23 History aerosol inhaler (Ventolin HFA) COUGH/SOB/WHEEZING fluticasone propionate 230 2 inh inhalation BID 10/24/22 03/04/23 History mcg-salmeterol 21 mcg/actuation HFA inhaler (Advair HFA) lorazepam 0.5 mg tablet 0.5 mg PO TID PRN Anxiety 10/24/22 03/04/23 History Magic Mouthwash 300 mL mouthwash 10 ml mucous membrane ACHS #300 mL 12/04/22 03/04/23 Rx famotidine 10 mg tablet (Acid 10 mg PO BID #60 tabs 12/10/22 03/04/23 Rx Heavy Forger Helper (famotidine)) benzonatate 100 mg capsule 100 mg PO TID PRN cough #60 caps 12/22/22 03/04/23 Rx chlorpromazine 25 mg tablet 25 mg PO QID PRN Hiccups 12/31/22 03/04/23 History ondansetron HCl 8 mg tablet 8 mg PO Q8H PRN Other 01/06/23 03/04/23 History morphine 15 mg immediate release 15 mg PO Q4H PRN Pain, Severe 01/13/23 03/04/23 History tablet pantoprazole 40 mg tablet,delayed 40 mg PO QAM #90 tabs 01/21/23 03/04/23 Rx release polyethylene glycol 3350 17 gram 17 g PO BID 02/06/23 03/04/23 History oral powder packet (Miralax) apixaban 5 mg tablet (Eliquis) 5 mg PO BID 02/07/23 03/04/23 History fluticasone propionate 50 2 spray intranasal QAM 02/07/23 03/04/23 History mcg/actuation nasal spray,suspension folic acid 1 mg tablet 1 mg PO DAILY 02/07/23 03/04/23 History lubiprostone 24 mcg capsule 24 mcg PO BID 02/07/23 03/04/23 History albuterol sulfate 2.5 mg/3 mL 2.5 mg inhalation DIRECTED PRN 03/04/23 03/04/23 History (0.083 %) solution for nebulization Shortness Of Breath Or Wheezing bisacodyl 10 mg rectal suppository 10 mg AK BID 03/04/23 03/04/23 History dexamethasone 4 mg tablet 4 mg PO DIRECTED 03/04/23 03/04/23 History dexamethasone 4 mg tablet 8 mg PO DIRECTED 03/04/23 03/04/23 History enoxaparin 100 mg/mL subcutaneous 100 mg subcut BID 03/04/23 03/04/23 History syringe lidocaine-prilocaine 2.5 %-2.5 % 1 applic topical DIRECTED PRN 1 03/04/23 03/04/23 History topical cream HR PRIOR TO PORT ACCESS meloxicam 15 mg tablet 15 mg PO DAILY 03/04/23 03/04/23 History phenazopyridine 200 mg tablet 200 mg PO TID PRN Pain 03/04/23 03/04/23 History prochlorperazine maleate 10 mg 10 mg PO Q6H PRN NAUSEA/VOMITING 03/04/23 03/04/23 History tablet (Compazine) promethazine 25 mg tablet 12.5 mg PO Q6H PRN NAUSEA/VOMITING 03/04/23 03/04/23 History sennosides 8.6 mg tablet 17.2 mg PO TID 03/04/23 03/04/23 History sucralfate 100 mg/mL oral 10 ml PO QID 03/04/23 03/04/23 History suspension (Carafate) umeclidinium 62.5 mcg/actuation 1 inh inhalation DAILY 03/04/23 03/04/23 History blister powder for inhalation (Incruse Ellipta) varenicline 0.5 mg (11)-1 mg (42) 1 ea PO DIRECTED 03/04/23 03/04/23 History tablets in a dose pack (Chantix Starting Month Box) Past Med/Surg History Medical History (Updated 03/04/23 @ 04:03 by Gautam Avila MD) ADHD Asthma Chronic cough Encounter for pre-operative examination Endometriosis of the uterus, unspecified Primary adenocarcinoma of upper lobe of right lung (10/03/22) Pseudocholinesterase deficiency Systemic lupus erythematosus Tobacco abuse Surgical History H/O right wrist surgery H/O tubal ligation H/O: hysterectomy History of cholecystectomy Hx of appendectomy S/P bronchoscopy Family History Mother Cancer Breast Grandmother (Maternal) Cancer Lung Social History Smoking Status: Current every day smoker Tobacco Type: Cigarettes Cigarettes Per Day: 1/2 pack daily; Second Hand Exposure: Yes; Do You Dip or Chew Tobacco: No; Hx Alcohol Use: No Hx Substance Use: No Preferred Language: Hebrew Communication Ability: Effective Visual Impairment: No Limitations Hearing Ability: Normal Home Delivery Driver Required: No Beliefs That Will Affect Care: None marital status: Single Current Living Situation: Alone Current Living Situation Comment: engaged current occupational status: unemployed 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 Lungs- clear to auscultation no wheezing or crackles Heart- regular rhythm; no murmur, no gallop. Abdomen- normal bowel sounds, soft, nontender, no distension. Extremities- no pretibial edema, no erythema seen Neuro- alert, oriented x 3; PERRL, EOMI; no facial palsy; no dysarthria; obeys commands, insight ok. moves extremities Skin- warm & dry Results & Data Results & Data Vital Signs (Past 12 Hours) Vital Signs Temp Pulse Pulse Resp BP BP Pulse Ox 03/04/23 02:00 95 H 19 94 03/04/23 00:53 96 03/04/23 00:53 03/04/23 00:53 96 H 17 103/67 93 03/03/23 20:55 36.9 C 114 H 18 106/75 96 O2 Del Method 03/04/23 02:00 03/04/23 00:53 Room Air 03/04/23 00:53 Room Air 03/04/23 00:53 Room Air 03/03/23 20:55 Room Air Diagnostic Findings Laboratory Results WBC 1.14 K/ul (4.8-10.8) L 03/03/23 21:24 RBC 2.31 M/uL (4.20-5.40) L 03/03/23 21:24 Hgb 8.5 g/dl (12.0-16.0) L 03/03/23 21: Hct 23.7 % (37.0-47.0) L 03/03/23 21: MCV 102.6 fL (80.0-100.0) H 03/03/23 21:24 MCH 36.8 pg (25.0-34.0) H 03/03/23 21: MCHC 35.9 g/dL (32.0-36.0) 03/03/23: RDW Std Deviation 45.7 fL (36.4-46.3) 03/03/23: RDW Coeff of Saritha 12.5 % (11.5-14.5) 03/03/23: Plt Count 67 K/uL (130-400) L 03/03/23: MPV 10.5 fL (9.4-12.4) 03/03/23: Immature Gran % (Auto) 0.0 % 03/03/23 21: Neut % (Auto) 24.4 % 03/03/23 21: Lymph % (Auto) 57.9 % 03/03/23 21: [place] % (Auto) 14.0 % 03/03/23 21: Eos % (Auto) 3.7 % 03/03/23: Baso % (Auto) 0.0 % 03/03/23: Neut # (Auto) 0.26 K/uL (1.40-6.50) L* 03/03/23: Lymph # (Auto) 0.62 K/uL (1.20-3.40) L 03/03/23 21: [place] # (Auto) 0.15 K/uL (0.11-0.59) 03/03/23: Eos # (Auto) 0.04 K/uL (0.00-0.50) 03/03/23: Baso # (Auto) 0.00 K/uL (0.00-0.20) 03/03/23 21: Immature Gran # (Auto) 0.00 K/uL (0.01-0.20) L 03/03/23 21: Platelet Estimate Decreased (Normal) L 03/03/23 21:24 PT 10.4 Seconds (9.0-12.0) 03/03/23 21:24 INR 0.9 (0.9-1.1) 03/03/23 21:24 APTT 27.1 Seconds (21.0-31.0) 03/03/23 21:24 PTT Ratio 1.0 03/03/23 21:24 Sodium 136 mmol/L (136-145) 03/03/23 21:24 Potassium 3.4 mmol/L (3.5-5.1) L 03/03/23 21:24 Chloride 101 mmol/L (98-107) 03/03/23 21:24 Carbon Dioxide 28 mmol/L (21-32) 03/03/23 21:24 Anion Gap 7 (3-11) 03/03/23 21:24 BUN 9 mg/dl (6-23) 03/03/23 21:24 Creatinine 0.93 mg/dl (0.6-1.2) 03/03/23 21:24 Est Cr Clr Drug Dosing Not Reportable 03/03/23 21:24 Est GFR ( Amer) 86.6 ml/min 03/03/23 21:24 Est GFR (Non-Af Amer) 74.7 ml/min 03/03/23 21:24 BUN/Creatinine Ratio 9.7 (10-20) L 03/03/23 21:24 Glucose 115 mg/dl (70-99(Fasting)) H 03/03/23 21:24 Calcium 8.8 mg/dl (8.6-10.3) 03/03/23 21:24 Magnesium 1.8 mg/dl (1.7-2.4) 03/03/23 21:24 Total Bilirubin 0.6 mg/dl (0.2-1.0) 03/03/23 21:24 AST 9 U/L (13-39) L 03/03/23 21:24 ALT 7 U/L (7-52) 03/03/23 21:24 Alkaline Phosphatase 90 U/L (34-104) 03/03/23 21:24 Troponin I High Sens 7.6 pg/ml (0-14) 03/03/23 21:24 Total Protein 6.4 gm/dl (6.0-8.3) 03/03/23 21:24 Albumin 3.7 gm/dl (3.4-5.0) 03/03/23 21:24 Globulin 2.7 gm/dl (2.5-4.0) 03/03/23 21:24 Albumin/Globulin Ratio 1.4 (0.9-2) 03/03/23 21:[address] 03/03/23 21:00 CR Exam(s): CT HEAD Without Contrast EXAM: CT Head Without Intravenous Contrast CLINICAL HISTORY: Reason for exam: Neuro deficit, acute, stroke suspected. reports severe headache that started when she woke up and reports she's having TIA sypmptoms woke up at 0630 in normal health, as per patient holding her head in triage and is slow to respond states he got home from work and he couldn't understand her words and she was confused states lights and sounds are bothering her also reports she has metastatic cancer (to include the brain) TECHNIQUE: Axial computed tomography images of the head/brain without intravenous contrast. CTDI is 37.32 mGy and DLP is 625.8 mGy-cm. Automated exposure control was utilized for the study. A dose lowering technique was utilized adhering to the principles of ALARA. COMPARISON: MRI brain dated 10/20/2022, outside hospital study. Report not available FINDINGS: Brain: Approximately 6 cm area of white matter hypoattenuation/vasogenic edema in the right parietotemporal lobes. New since the prior MRI. Associated regional mass-effect with effacement of sulci, mild compression of the right lateral ventricle, and 6 mm leftward midline shift. New mild white matter hypoattenuation/vasogenic edema in bilateral occipital lobes and possibly right cerebellum. Basilar cisterns are patent. No intracranial hemorrhage. Ventricles: Unremarkable. No ventriculomegaly. Bones/joints: Unfused posterior C1 arch, partially visualized, variant anatomy. No acute fracture. Soft tissues: Unremarkable. Sinuses: Unremarkable as visualized. No acute sinusitis. Mastoid air cells: Unremarkable as visualized. No mastoid effusion. IMPRESSION: 1. Approximately 6 cm area of white matter hypoattenuation/vasogenic edema in the right parietotemporal lobes. New since the prior MRI. Associated regional mass-effect and 6 mm leftward midline shift. 2. New mild white matter hypoattenuation/vasogenic edema in bilateral occipital lobes and possibly right cerebellum. 3. Given history, above findings are worrisome for underlying metastatic lesions. Recommend MRI without and with contrast to further evaluate. Communications: 03/04/23 01:19 Call Doctor Regarding Above results, called Dr. Roper on 03/04 01:19 (-04:00) Electronically signed by: Arnaud Burrell M.D. 03/04/23 01:25 AM ECG Additional Comments: EEG sinus tachycardia with rate of 112. Nonspecific ST abnormalities Code Status & VTE Plan VTE Prophylaxis Plan VTE Prophylaxis will be ordered: Yes
[2023-03-04] MEDS ORDERED: BENZONATATE 100 MG CAPSULE PO PRN (04:38)
[2023-03-04] MEDS ORDERED: ACETAMINOPHEN 325 MG TAB PO PRN (04:38)
[2023-03-04] MEDS ORDERED: LIDOCAINE/PRILOCAINE 2.5% EA CRM EXT PRN (04:38)
[2023-03-04] MEDS ORDERED: ALBUTEROL HFA 8 GM INHALER INH PRN (04:38)
[2023-03-04] MEDS ORDERED: ALBUTEROL 0.083% NEBU SOLN 3 ML VIAL INH PRN (04:38)
[2023-03-04] MEDS ORDERED: NITROGLYCERIN SL 0.4 MG/TAB TAB SL PRN (04:38)
[2023-03-04] MEDS ORDERED: PROMETHAZINE HCL 25 MG TAB PO PRN (04:38)
--- NOTE | 2023-03-04 07:07 | XRay Report ---
XR chest 1V portable HISTORY: 42 years-old Female stroke alert acute strokelike symptoms COMPARISON: 01/18/2023 TECHNIQUE: AP view of the chest FINDINGS: Cardiomediastinal hilar silhouettes are unchanged. Right IJ [id number] catheter is noted with dist al tip in expected location of the superior cavoatrial junction. Spiculated right upper lobe lesion m easuring approximately 3 cm is again noted with adjacent linear scarring. Mild pulmonary emphysema. IMPRESSION: 1. Mild emphysema without acute process. 2. Right upper lobe lesion redemonstrated. ACT 112: Negative or not required by law. The above report was generated using voice recognition software. It may contain grammatical, syntax o r spelling errors. Electronically signed by: Gamaliel Mahan M.D. 03/04/2023 7:06 AM
[2023-03-04] MEDS ORDERED: NON-FORMULARY MEDICATION (Magic Mouthwash 300 mL mouthwash) mucous membrane SCH (07:30)
[2023-03-04 07:43] LABS: Anion Gap 5 (3-11); Blood Urea Nitrogen 8 mg/dl (6-23); Calcium 8.6 mg/dl (8.6-10.3); Carbon Dioxide 28 mmol/L (21-32); Chloride 105 mmol/L (98-107); Est GFR (African American) 103.9 ml/min; Est GFR (Non-African American) 89.7 ml/min; Glucose 137 mg/dl (70-99(Fasting)); Magnesium 1.8 mg/dl (1.7-2.4); Phosphorus 2.7 mg/dl (2.5-4.9); Potassium 3.8 mmol/L (3.5-5.1); Sodium 138 mmol/L (136-145)
[2023-03-04 07:48] LABS: Hematocrit (blood only) 22.7 % (37.0-47.0); Hemoglobin 8.1 g/dl (12.0-16.0); Mean Corpuscular Hemoglobin 36.3 pg (25.0-34.0); Mean Corpuscular Hgb Conc 35.7 g/dL (32.0-36.0); Mean Corpuscular Volume 101.8 fL (80.0-100.0); Platelet Count 69 K/uL (130-400); RDW Coefficient of Variation 12.5 % (11.5-14.5); RDW Standard Deviation 45.1 fL (36.4-46.3); Red Blood Count 2.23 M/uL (4.20-5.40); White Blood Count 0.65 K/ul (4.8-10.8)
--- NOTE | 2023-03-04 07:56 | Hospitalist Progress Note ---
Date of Service March 04, 2023 Assessment & Plan (1) Metastasis to brain: Plan: 42-year-old female with past med significant for metastatic lung cancer to kidneys and brain, lupus, bipolar disorder, ADHD, fibromyalgia, Raynaud's disease, pseudocholinesterase deficiency, PCOS comes because severe headaches and confusion and found to have brain mets. Brain mets and severe headaches Metastatic lung cancer diagnosed in August CT scan of head showing 6 cm area of white matter hypoattenuation/vasogenic edema with associated mass effect and 6 mm leftward midline shift. S/p radiation treatment to the chest in December She is currently getting chemo and had first cycle ER discussed with heme-onc Dr.Nilesh Charlton and recommend to keep the patient here and consult radiation oncology in a.m. Received a dose of IV Decadron 10 mg We will continue with IV Decadron 4 mg every 6 hours Pain control/MRI head/Await further radiation oncology treatment options Metastatic lung cancer Management as per heme-onc and radiation oncology Continues on carboplatin/Keytruda/Alimta Dysphagia Possible radiation esophagitis Patient had an esophageal dilatation in December and thinks she may needed again Per GI continue Protonix and sucralfate as she had esophageal ulcer in the last EGD. Very unlikely that she is an appropriate candidate for esophageal dilation given brain mets, pancytopenia, etc. Agree with conservative management of symptoms with medications at this time. History of pulmonary embolism CTA chest december 31 2022 Right lower lobe subsegmental PE. CTA chest january 05 2023 No PE. On Eliquis. discussed with Heme/onco. To hold eliquis for now because of low platelets and brain mets restart of eliquis as per heme/onco. Pancytopenia 2/2 chemotherapy neutropenic without fever or signs/sxs of infection Cont to monitor. SLE Currently not on any treatment, stable Follows with rheumatology PCOS chronic, stable. on Aldactone. DVT prophylaxis Scds for now Disposition med/telemetry Full code Shweta Godinez DO [facility] Hospitalist Admission and Anticipated Discharge Date Admission Date: March 04, 2023 Subjective 42-year-old female with metastatic lung cancer to kidneys and bones presents with worsening confusion and headache. Metastatic disease to brain found with leftward midline shift. She is status post radiation treatment to the chest in December and currently getting chemotherapy status post 4 cycle. She is neutropenic and afebrile. She is well-appearing this morning and is mentating clearly after Decadron. Discussion ensued with iris and her oncologist Dr. Joaquín Charlton. Decadron is continued with radiation oncology input. Given her metastatic disease and low platelets, Eliquis has been held. Notably she had a CTA of chest December 31 revealing a right lower lobe subsegmental PE but on repeat CTA chest January 05 there was no PE seen. She has been on full dose Lovenox transition to Eliquis since that time. She is tolerating p.o. this morning but does report some vomiting at home. Denies any other significant abdominal issues. She does have some concern over areas of folliculitis in both her per ivaginal area and intergluteal fold. She does report some issues with dysphagia and requested from GI that they consider another esophageal dilation similar to a couple months ago. Physical Exam Physical Exam: CONSTITUTIONAL: WNWD, vitals as above, generally well-appearing, NAD EYES: normal conjunctivae, no scleral icterus, ENT: external ear and nose normal, NECK: trachea midline, RESPIRATORY: clear to auscultation bilaterally, no crackles, rales or wheezes, normal respiratory effort CARDIOVASCULAR: regular rate and rhythm, S1 and 2 heard without murmurs, gallops or rubs, no JVD, no peripheral edema GASTROINTESTINAL: soft, NTND MUSCULOSKELETAL: strength 5/5 throughout, head is normocephalic and atraumatic, ambulates independently SKIN: warm and dry NEUROLOGIC: CN 2-12 grossly intact, no sensory deficit, normal cognition, normal speech, no tremor PSYCHIATRIC: alert cooperative and oriented to person, place and time. Euthymic mood, makes good eye contact, language grossly intact, recent and remote memory grossly intact. Results & Data Results & Data Vital Signs (Past 12 Hours) Vital Signs Temp Pulse Pulse Resp BP BP Pulse Ox 03/04/23 07:03 98 H 03/04/23 05:45 94 H 16 104/55 L 97 03/04/23 04:38 100 H 15 96 03/04/23 04:38 03/04/23 04:00 91 H 15 119/69 94 03/04/23 02:00 95 H 19 94 03/04/23 00:53 96 03/04/23 00:53 03/04/23 00:53 96 H 17 103/67 93 03/03/23 20:55 36.9 C 114 H 18 106/75 96 Pulse Ox O2 Del Method O2 Del Method O2 Flow Rate O2 Flow Rate 03/04/23 07:03 03/04/23 05:45 Nasal Cannula 2 03/04/23 04:38 Nasal Cannula 2 03/04/23 04:38 96 Nasal Cannula 2 03/04/23 04:00 03/04/23 02:00 03/04/23 00:53 Room Air 03/04/23 00:53 Room Air 03/04/23 00:53 Room Air 03/03/23 20:55 Room Air Laboratory Results Short CBC 03/03/23 03/04/23 Range/Units 21:24 06:59 WBC 1.14 L 0.65 L* (4.8-10.8) K/ul Hgb 8.5 L 8.1 L (12.0-16.0) g/dl Hct 23.7 L 22.7 L (37.0-47.0) % Plt Count 67 L 69 L (130-400) K/uL BMP 03/03/23 03/04/23 21:24 06:59 Sodium 136 138 Potassium 3.4 L 3.8 Chloride 101 105 Carbon Dioxide 28 28 BUN 9 8 Creatinine 0.93 0.80 Glucose 115 H 137 H Calcium 8.8 8.6 Liver Function 03/03/23 Range/Units 21:24 Total Bilirubin 0.6 (0.2-1.0) mg/dl AST 9 L (13-39) U/L ALT 7 (7-52) U/L Alkaline Phosphatase 90 (34-104) U/L Albumin 3.7 (3.4-5.0) gm/dl Diagnostic Findings Chest X-Ray 03/03/23 21:00 XR chest 1V portable HISTORY: 42 years-old Female stroke alert acute strokelike symptoms COMPARISON: 01/18/2023 TECHNIQUE: AP view of the chest FINDINGS: Cardiomediastinal hilar silhouettes are unchanged. Right IJ Xvndei-m-Ttze catheter is noted with distal tip in expected location of the superior cavoatrial junction. Spiculated right upper lobe lesion measuring approximately 3 cm is again noted with adjacent linear scarring. Mild pulmonary emphysema. IMPRESSION: 1. Mild emphysema without acute process. 2. Right upper lobe lesion redemonstrated. ACT 112: Negative or not required by law. The above report was generated using voice recognition software. It may contain grammatical, syntax or spelling errors. Electronically signed by: Gamaliel Mahan M.D. 03/04/2023 7:[address] 03/03/23 21:00 CR Exam(s): CT HEAD Without Contrast EXAM: CT Head Without Intravenous Contrast CLINICAL HISTORY: Reason for exam: Neuro deficit, acute, stroke suspected. reports severe headache that started when she woke up and reports she's having TIA sypmptoms woke up at 0630 in normal health, as per patient holding her head in triage and is slow to respond states he got home from work and he couldn't understand her words and she was confused states lights and sounds are bothering her also reports she has metastatic cancer (to include the brain) TECHNIQUE: Axial computed tomography images of the head/brain without intravenous contrast. CTDI is 37.32 mGy and DLP is 625.8 mGy-cm. Automated exposure control was utilized for the study. A dose lowering technique was utilized adhering to the principles of ALARA. COMPARISON: MRI brain dated 10/20/2022, outside hospital study. Report not available FINDINGS: Brain: Approximately 6 cm area of white matter hypoattenuation/vasogenic edema in the right parietotemporal lobes. New since the prior MRI. Associated regional mass-effect with effacement of sulci, mild compression of the right lateral ventricle, and 6 mm leftward midline shift. New mild white matter hypoattenuation/vasogenic edema in bilateral occipital lobes and possibly right cerebellum. Basilar cisterns are patent. No intracranial hemorrhage. Ventricles: Unremarkable. No ventriculomegaly. Bones/joints: Unfused posterior C1 arch, partially visualized, variant anatomy. No acute fracture. Soft tissues: Unremarkable. Sinuses: Unremarkable as visualized. No acute sinusitis. Mastoid air cells: Unremarkable as visualized. No mastoid effusion. IMPRESSION: 1. Approximately 6 cm area of white matter hypoattenuation/vasogenic edema in the right parietotemporal lobes. New since the prior MRI. Associated regional mass-effect and 6 mm leftward midline shift. 2. New mild white matter hypoattenuation/vasogenic edema in bilateral occipital lobes and possibly right cerebellum. 3. Given history, above findings are worrisome for underlying metastatic lesions. Recommend MRI without and with contrast to further evaluate. Communications: 03/04/23 01:19 Call Doctor Regarding Above results, called Dr. Roper on 03/04 01:19 (-04:00) Electronically signed by: Arnaud Burrell M.D. 03/04/23 01:25 AM Medications Administered Current Inpatient Medications Acetaminophen (Acetaminophen 325 Mg Tab) 650 mg PO Q4H PRN PRN Reason: Pain or Fever Stop: 04/03/23 04:37 Albuterol (Albuterol 0.083% Nebu Soln 3 Ml Vial) 2.5 mg INH Q4H PRN; Protocol PRN Reason: Shortness Of Breath Or Wheezin Stop: 04/03/23 04:37 Albuterol (Albuterol Hfa 8 Gm Inhaler) 2 puffs INH Q4H PRN PRN Reason: COUGH/SOB/WHEEZING Stop: 04/03/23 04:37 Benzonatate (Benzonatate 100 Mg Capsule) 100 mg PO TID PRN PRN Reason: cough Stop: 04/03/23 04:37 Bisacodyl (Bisacodyl 10 Mg Supp) 10 mg NH BID MATI Stop: 04/03/23 08:59 Chlorpromazine HCl (Chlorpromazine Hcl 25 Mg Tab) 25 mg PO QID PRN PRN Reason: Hiccups Stop: 04/03/23 04:37 Famotidine (Famotidine 10 Mg Tablet) 10 mg PO BID MATI Stop: 04/03/23 08:59 Fluticasone Propionate (Fluticasone Propionate Na Spr 16 Gm Btl) 2 sprays NA QAM MATI Stop: 04/03/23 08:59 Fluticasone/Vilanterol (Fluticasone/Vilanterol 200/25mcg 14 Puffs/Inhaler) 1 puffs INH DAILY MATI Stop: 04/03/23 08:59 Folic Acid (Folic Acid 1 Mg Tab) 1 mg PO DAILY MATI Stop: 04/03/23 08:59 Hydromorphone HCl (Hydromorphone Inj 0.5 Mg/0.5 Ml Syr) 0.5 mg IV Q3H PRN PRN Reason: Pain Stop: 03/18/23 04:37 Last Admin: 03/04/23 06:40 Dose: 0.5 mg Sodium Chloride (Nss 1000ml) 1,000 mls @ 100 mls/hr IV .Q10H MATI Stop: 03/04/23 14:37 Last Admin: 03/04/23 04:57 Dose: 100 mls/hr Dexamethasone 4 mg/ Syringe 1 mls @ 1 mls/min IV Q6H MATI Stop: 04/03/23 07:59 Lidocaine/Prilocaine (Lidocaine/Prilocaine 2.5% Ea Crm) 1 each EXT .PRIOR TO PORT ACCESS PRN PRN Reason: 1 HR PRIOR TO PORT ACCESS Stop: 04/03/23 04:37 Lorazepam (Lorazepam 0.5 Mg Tab) 0.5 mg PO TID PRN PRN Reason: Anxiety Stop: 04/03/23 04:37 Lubiprostone (Lubiprostone 8 Mcg Cap) 24 mcg PO BID [facility] Stop: 04/03/23 08:59 Multi-Ingredient Mouthwash/Gargle (First - Mouthwash Blm 119 Ml) 10 ml PO ACHS [facility] Stop: 04/03/23 07:29 Nitroglycerin (Nitroglycerin Sl 0.4 Mg/Tab Tab) 0.4 mg SL Q5M PRN PRN Reason: Chest Pain Stop: 04/03/23 04:37 Ondansetron HCl (Ondansetron Inj 2 Mg/Ml 2 Ml Vial) 4 mg IV Q6H PRN PRN Reason: Nausea Stop: 04/03/23 04:37 Pantoprazole Sodium (Pantoprazole 40 Mg Tab) 40 mg PO QAM MATI Stop: 04/03/23 08:59 Polyethylene Glycol (Polyethylene (Miralax) 17 Gm Pack) 17 gm PO BID MATI Stop: 04/03/23 08:59 Promethazine HCl (Promethazine Hcl 25 Mg Tab) 12.5 mg PO Q6H PRN PRN Reason: NAUSEA/VOMITING Stop: 04/03/23 04:37 Sennosides (Senna 8.6 Mg Tab) 17.2 mg PO TID [facility] Stop: 04/03/23 08:59 Spironolactone (Spironolactone 100 Mg Tab) 200 mg PO [id number] [facility] Stop: 04/03/23 08:59 Sucralfate (Sucralfate 1 Gm/10 Ml Udc) 1 gm PO ACHS MATI Stop: 04/03/23 07:29 Umeclidinium [place] (Umeclidinium [place] 62.5mcg/Blister 7 Puffs/Inhaler) 1 puffs INH DAILY MATI Stop: 04/03/23 08:59
[2023-03-04 08:09] LABS: Eosinophils # (auto) 0.01 K/uL (0.00-0.50); Eosinophils % (auto) 1.5 %; Immature Granulocytes # (auto) 0.01 K/uL (0.01-0.20); Immature Granulocytes % (auto) 1.5 %; Lymphocytes # (auto) 0.32 K/uL (1.20-3.40); Lymphocytes % (auto) 49.2 %; Monocytes # (auto) 0.04 K/uL (0.11-0.59); Monocytes % (auto) 6.2 %; Neutrophils # (auto) 0.27 K/uL (1.40-6.50); Neutrophils % (auto) 41.6 %
[2023-03-04 08:12] LABS: Polychromasia 1+
[2023-03-04] MEDS ORDERED: PANTOprazole 40 MG TAB PO SCH (09:00)
[2023-03-04] MEDS ORDERED: NON-FORMULARY MEDICATION (Fluticasone Propion-Salmeterol [Advair Hfa] 230-21 mcg/actuation INH SCH (09:00)
[2023-03-04] MEDS: dexAMETHasone 4 MG in SYRINGE 0 ML IV SCH ×3 (09:11→21:00)
[2023-03-04] MEDS: FLUTICASONE/VILANTEROL 200/25MCG 14 PUFFS/INHALER INH SCH (09:15)
[2023-03-04] MEDS: UMECLIDINIUM BROMIDE 62.5MCG/BLISTER 7 PUFFS/INHALER INH SCH (09:15)
[2023-03-04] MEDS: POLYETHYLENE (MIRALAX) 17 GM PACK PO SCH ×2 (09:16→21:48)
[2023-03-04] MEDS: FLUTICASONE PROPIONATE NA SPR 16 GM BTL SCH (09:17)
[2023-03-04] MEDS: SENNA 8.6 MG TAB PO SCH ×3 (09:18→21:04)
[2023-03-04] MEDS: SPIRONOLACTONE 100 MG TAB PO SCH ×2 (09:19→17:24)
[2023-03-04] MEDS: FAMOTIDINE 10 MG TABLET PO SCH ×2 (09:20→21:47)
[2023-03-04] MEDS: SUCRALFATE 1 GM/10 ML UDC PO SCH ×4 (09:20→21:00)
[2023-03-04] MEDS: FOLIC ACID 1 MG TAB PO SCH (09:20)
[2023-03-04] MEDS: LUBIPROSTONE 8 MCG CAP PO SCH ×2 (09:23→21:07)
[2023-03-04] MEDS: FIRST - Mouthwash BLM 119 ML PO SCH ×4 (09:24→21:48)
[2023-03-04] MEDS: bisacodyL 10 MG SUPP PR SCH ×2 (09:25→21:48)
--- NOTE | 2023-03-04 11:11 | Radiation OncologyConsultation ---
Date of Consultation March 04, 2023 Assessment & Plan (1) Metastasis to brain: 1. She will continue regular follow-up with her primary care provider and medical oncology. 2. She will continue on dexamethasone. This is improving from her symptoms. 3. She is scheduled for an MRI of the brain. This will be reviewed and will give further information in regards to treatment. 4. The patient is claustrophobic and will require lorazepam prior to CT simulation and treatment. 5. We discussed the difference between stereotactic treatment and whole brain therapy. We will plan stereotactic treatment if possible. 6. Continue on current regimen of medication for pain. 7. She continues to have issues with the esophagitis. She will continue on Protonix and Carafate. 8. She is on neutropenic precautions for the pancytopenia. 9. Patient to be seen by Dr. Charlton. See his additional note. Plan ATTENDING ADDENDUM: Assessment: Ms. 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 The patient was previously treated with chemotherapy and radiation therapy. The patient received a partial course of radiation therapy and stopped treatment due to intolerance to side effects including radiation esophagitis (5800 cGy, 29 fractions, 01/16/2023). Following completion of chemotherapy and radiation therapy, the patient did have progression of disease. The patient was recently found to have metastatic disease involving the brain. The patient was referred to radiation oncology however she missed 2 appointments in our department. The patient has sought out a second opinion consultation at [facility] to confirm systemic therapy treatment options. The patient is currently receiving carboplatin/Keytruda/Alimta underneath the supervision of Dr. Joaquín Charlton. The patient presented to the emergency room yesterday with complaints of headaches and confusions. The patient is going to be admitted to the hospital. The patient is scheduled to undergo an MRI of the brain. Plan: 1. Review MRI brain. Plan for radiation therapy following review of imaging. Stereotactic radiosurgery versus whole brain radiation therapy. 2. Continue patient on dexamethasone. 3. Continue all the care as per primary medical team. History of Present Illness Reason for Consultation: Brain metastasis Requesting Physician: Shweta Godinez DO Attending Physician: Shweta Godinez DO History of Present Illness 09/19/2022. Primary care evaluation. Complaint of shortness of breath. Recommendation for emergency room evaluation. [facility] emergency room evaluation. CT revealed right upper lobe mass. 10/03/2022. Bronchoscopy with biopsies (Dr. Ying Love). Path report reveals, right upper lobe. Rare at epithelial cells, compatible with adenocarcinoma. 10/09/2022. Pulmonary consultation (Dr. Shashi Nolan). Awaiting results of PET/CT. She continues on treatment with inhalers. Advair, Spiriva and albuterol. 10/14/2022. PET/CT. IMPRESSION 1. Intensely hypermetabolic right upper lobe pulmonary mass, measuring up to 4.4 cm, consistent withbiopsy proven malignancy. 2. Intensely hypermetabolic right hilar and mediastinal lymphadenopathy, increased in size from the recentprior exam, concerning for elzbieta metastases. 3. Additional 0.8 cm nodule in the right apex with minimal associated activity may represent anadenocarcinoma spectrum lesion. 10/16/2022. Radiation oncology consultation (Dr. Bashir). Clinical stage Stage IIIA (cT2b, cN2, cM0). Recommend EBUS for mediastinal st aging. Recommendation for MRI of the brain. 10/20/2022. MRI of the brain. No evidence of intracranial metastasis. 10/22/2022. Bronchoscopy with EBUS (Dr. Hinton). Final Diagnosis A. Lymph Node, Left Paratracheal,4L, EBUS transbronchial fine needle aspiration: Adequacy: Less than optimal- scant cellularity. Category: Benign. Interpretation: Scant lymphocytes diluted in blood. Other: The histological sections of the cellblock preparation show similar findings. B. Lymph Node, Right Paratracheal, 4R, EBUS transbronchial fine needle aspiration: Adequacy: Satisfactory for evaluation. Category: Malignant. Interpretation: Metastatic non-small cell carcinoma, compatible with adenocarcinoma. Other: The histological sections of the cellblock preparation show similar findings. C. Lymph Node, Right Hilar,10R, EBUS transbronchial fine needle aspiration: Adequacy: Satisfactory for evaluation. Category: Malignant. Interpretation: Metastatic non-small cell carcinoma, compatible with adenocarcinoma. Comment: The histological sections of the cell block C1 show cellular clusters of tumor cells with marked nuclear pleomorphism, nucleoli, and eosinophilic cytoplasm. Immunohistochemical stains were performed with adequate controls and show that the tumor cells are positive for TTF1, while negative for p40 and synaptophysin. Overall, the findings support a poorly differentiated non-small cell carcinoma with necrosis, compatible with the patient's known history of lung adenocarcinoma ([id number]). No squamous or neuroendocrine differentiation is seen. Molecular NGS testing is pending and results will follow in an addendum. Clinical and radiological correlation is suggested. 10/27/2022. Placement of a port. 10/29/2022. Radiation oncology consultation. Patient complains of some minor shortness of breath. Otherwise she denies any fevers chills night sweats or hemoptysis. 10/31/2022. Medical oncology consultation (Dr. Jonathan Charlton). Recommendation for combined radiation and chemotherapy. 01/16/2023. Radiation therapy stopped. She completed 29 of 33 fractions of treatment. She received 5800 cGy. She developed radiation esophagitis. She was hospitalized. Upper GI endoscopy revealed esophageal ulcer. She received weekly chemotherapy while on radiation. Chemotherapy comprised of Taxol and carboplatin. 01/18/2023. CT of the abdomen pelvis. This revealed multiple solid bilateral re nal lesions. 01/20/2023. CT of the chest. Slight decrease in size of the known right upper lobe lung cancer and associated mediastinal lymphadenopathy since CT of December 31, 2022. 2 solid right renal lesions measuring up to 2.5 cm. 01/27/2023. Ultrasound-guided renal biopsy. FINAL DIAGNOSIS Kidney, left, CT-guided core biopsy: - Metastatic adenocarcinoma consistent with lung primary. - See comment. Comment: The vast majority of the specimen consists of benign kidney. There appears to be enough malignant cells (approximately 100) for PD-L1 and FISH testing. 02/12/2023. MRI brain. 3 small ring-enhancing brain metastasis. 02/19/2023. Initiation of treatment with carboplatin, Keytruda and Alimta. 02/23/2023. Second opinion at [facility]. Pathology review. Left kidney. Limited foci of metastatic poorly differentiated adenocarcinoma involving renal parenchyma. 03/03/2023. Emergency room evaluation for headaches and confusion. 03/03/2023. Head CT. 1. Approximately 6 cm area of white matter hypoattenuation/vasogenic edema in the right parietotemporal lobes. New since the prior MRI. Associated regional mass-effect and 6 mm leftward midline shift. 2. New mild white matter hypoattenuation/vasogenic edema in bilateral occipital lobes and possibly right cerebellum. 3. Given history, above findings are worrisome for underlying metastatic lesions. Recommend MRI without and with contrast to further evaluate. 03/03/2023. Radiation oncology consultation. Patient has been on dexamethasone since admission. He does feel improved in regards to the confusion. She continues to have headache which she rates at a 8-9 out of 10. The pain is especially in the right frontal and occipital area. She is feels that there is a pressure behind her eyes. This is especially noticed more on the right. She has had associated nausea. She does have some complaints of lower back discomfort. Allergies Allergy/AdvReac Type Severity Reaction Status Date / Time levofloxacin [From Levaquin] Allergy Severe THROAT Verified 03/04/23 01:31 SWELLS SHUT, ITCHY--RASH PER [facility] Penicillins Allergy Severe Anaphylaxis Verified 03/04/23 01:31 clindamycin Allergy Intermediate CAUSED A Verified 03/04/23 01:31 YEAST INFECTION X 6 MONTHS povidone-iodine Allergy Intermediate Rash Verified 03/04/23 01:31 [From Betadine] silver Allergy Intermediate Rash Verified 03/04/23 01:31 [From Tegaderm AG Mesh] bupropion [From Wellbutrin] AdvReac Severe suicidal Verified 03/04/23 01:31 ideation duloxetine AdvReac Severe suicidal Verified 03/04/23 01:31 ideations sulfamethoxazole AdvReac Mild YEAST Verified 03/04/23 01:31 [From Bactrim] INFECTION trimethoprim [From Bactrim] AdvReac Mild YEAST Verified 03/04/23 01:31 INFECTION ANESTHESIA AdvReac Severe PER Uncoded 03/04/23 01:31 GMG--PSEUDOCHLOINESTERASE---FLAT LINES PLASTIC AdvReac Severe SKIN PEELS Uncoded 03/04/23 01:31 Home Medications Medication Instructions Recorded Confirmed Type spironolactone 100 mg tablet 200 mg PO BID 09/24/19 03/04/23 History (Aldactone) albuterol sulfate 90 mcg/actuation 2 puff inhalation Q4H PRN 09/21/22 03/04/23 History aerosol inhaler (Ventolin HFA) COUGH/SOB/WHEEZING fluticasone propionate 230 2 inh inhalation BID 10/24/22 03/04/23 History mcg-salmeterol 21 mcg/actuation HFA inhaler (Advair HFA) lorazepam 0.5 mg tablet 0.5 mg PO TID PRN Anxiety 10/24/22 03/04/23 History Magic Mouthwash 300 mL mouthwash 10 ml mucous membrane ACHS #300 mL 12/04/22 03/04/23 Rx famotidine 10 mg tablet (Acid 10 mg PO BID #60 tabs 12/10/22 03/04/23 Rx [employer] (famotidine)) benzonatate 100 mg capsule 100 mg PO TID PRN cough #60 caps 12/22/22 03/04/23 Rx chlorpromazine 25 mg tablet 25 mg PO QID PRN Hiccups 12/31/22 03/04/23 History ondansetron HCl 8 mg tablet 8 mg PO Q8H PRN Other 01/06/23 03/04/23 History morphine 15 mg immediate release 15 mg PO Q4H PRN Pain, Severe 01/13/23 03/04/23 History tablet pantoprazole 40 mg tablet,delayed 40 mg PO QAM #90 tabs 01/21/23 03/04/23 Rx release polyethylene glycol 3350 17 gram 17 g PO BID 02/06/23 03/04/23 History oral powder packet (Miralax) apixaban 5 mg tablet (Eliquis) 5 mg PO BID 02/07/23 03/04/23 History fluticasone propionate 50 2 spray intranasal QAM 02/07/23 03/04/23 History mcg/actuation nasal spray,suspension folic acid 1 mg tablet 1 mg PO DAILY 02/07/23 03/04/23 History lubiprostone 24 mcg capsule 24 mcg PO BID 02/07/23 03/04/23 History albuterol sulfate 2.5 mg/3 mL 2.5 mg inhalation DIRECTED PRN 03/04/23 03/04/23 History (0.083 %) solution for nebulization Shortness Of Breath Or Wheezing bisacodyl 10 mg rectal suppository 10 mg ID BID 03/04/23 03/04/23 History dexamethasone 4 mg tablet 4 mg PO DIRECTED 03/04/23 03/04/23 History dexamethasone 4 mg tablet 8 mg PO DIRECTED 03/04/23 03/04/23 History enoxaparin 100 mg/mL subcutaneous 100 mg subcut BID 03/04/23 03/04/23 History syringe lidocaine-prilocaine 2.5 %-2.5 % 1 applic topical DIRECTED PRN 1 03/04/23 03/04/23 History topical cream HR PRIOR TO PORT ACCESS meloxicam 15 mg tablet 15 mg PO DAILY 03/04/23 03/04/23 History phenazopyridine 200 mg tablet 200 mg PO TID PRN Pain 03/04/23 03/04/23 History prochlorperazine maleate 10 mg 10 mg PO Q6H PRN NAUSEA/VOMITING 03/04/23 03/04/23 History tablet (Compazine) promethazine 25 mg tablet 12.5 mg PO Q6H PRN NAUSEA/VOMITING 03/04/23 03/04/23 History sennosides 8.6 mg tablet 17.2 mg PO TID 03/04/23 03/04/23 History sucralfate 100 mg/mL oral 10 ml PO QID 03/04/23 03/04/23 History suspension (Carafate) umeclidinium 62.5 mcg/actuation 1 inh inhalation DAILY 03/04/23 03/04/23 History blister powder for inhalation (Incruse Ellipta) varenicline 0.5 mg (11)-1 mg (42) 1 ea PO DIRECTED 03/04/23 03/04/23 History tablets in a dose pack (Chantix Starting Month Box) Patient History Medical History (Updated 03/04/23 @ 04:03 by Gautam Avila MD) ADHD Asthma Chronic cough Encounter for pre-operative examination Endometriosis of the uterus, unspecified Primary adenocarcinoma of upper lobe of right lung (10/03/22) Pseudocholinesterase deficiency Systemic lupus erythematosus Tobacco abuse Surgical History H/O right wrist surgery H/O tubal ligation H/O: hysterectomy History of cholecystectomy Hx of appendectomy S/P bronchoscopy Family History Mother Cancer Breast Grandmother (Maternal) Cancer Lung Social History Smoking Status: Current every day smoker Tobacco Type: Cigarettes Cigarettes Per Day: 1/2 pack daily; Second Hand Exposure: Yes; Do You Dip or Chew Tobacco: No; Hx Alcohol Use: No Hx Substance Use: No Preferred Language: Greek Communication Ability: Effective Visual Impairment: No Limitations Hearing Ability: Normal School Caf[employer] Required: No Beliefs That Will Affect Care: None marital status: Single Current Living Situation: Alone Current Living Situation Comment: engaged current occupational status: unemployed 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 Lung, right upper lobe. Adenocarcinoma. Stage [id number]. Stage IIIA. 01/2023. Brain metastasis. TREATMENT: 01/16/2023. Patient stopped radiation therapy. She completed 29 of 33 fractions of radiation therapy. She received 5800 cGy. Concurrent weekly chemotherapy. Chemotherapy comprised of Taxol and carboplatin. 02/19/2023. Initiation of treatment with carboplatin, Keytruda and Alimta. Review of Systems Review of Systems: 13 point review of systems completed. Negative other than was in the history of present illness. Physical Exam Constitutional: WD/WN, vitals as above Eyes: + EOM not intact There is inversion of the right eye when looking upward. ENMT: Ears: no hearing impairment Neck: trachea midline, no thyromegaly Respiratory: normal respiratory effort, lungs clear to auscultation Cardiovascular: RRR, no murmur, no edema Musculoskeletal: Equal strength and coordination of upper and lower extremities. Skin: no rashes, warm and dry Neurologic: Speech / Cognition: normal speech Motor/Sensory: no tremor Normal strength and coordination. Psychiatric: A+Ox3, euthymic affect Results (Rad Onc) Imaging Studies: were reviewed and pertinent findings noted in HPI Time Spent Midlevel I spent [15] minutes in preparation for this follow up evaluation including reviewing all the clinical records, reviewing laboratory studies, pathology reports and imaging results. I spent [25] minutes with direct face to face interaction with the patient and/or family including performing a physical exam and answering all questions. I spent [15] minutes documenting this patient's visit. Attending I spent 10 minutes in preparation for this consultation including reviewing all the clinical records, reviewing laboratory studies, pathology reports and imaging results. I spent 10 minutes documenting this patient's visit. PG Care Time/CCT Total # of Minutes Spent Total Time Spent with Patient: Total time spent is greater than 50% in coordination of care (as documented) at patient's floor/unit and/or counseling patient: Coding Level of Care Code 01717 IN/OBS CONSULT LVL 4,60M Diagnoses Metastasis to brain C79.31
[2023-03-04] MEDS ORDERED: GADOBUTROL 65ML VIAL IV ONE (12:09)
[2023-03-04] MEDS: ONDANSETRON INJ 2 MG/ML 2 ML VIAL IV PRN (12:42)
--- NOTE | 2023-03-04 14:23 | Magnetic Resonance Report ---
Brain MRI WITH AND WITHOUT CONTRAST HISTORY: Evaluate intracranial metastatic disease. TECHNIQUE: Multiplanar multisequence MRI of the brain was performed both before and after the intrave nous administration of contrast. COMPARISON STUDY: Head CT 03/04/2023. Outside hospital brain MRI 10/20/2022. FINDINGS: No areas of restricted diffusion to suggest acute infarction. Small retention cyst within t he left maxillary sinus. The orbits are unremarkable. The mastoid air cells are clear. The major vasc ular flow-voids at the skull base are well-maintained. There is up to 4 mm of left midline shift. No intracranial hemorrhage identified. This is secondary to the 7 cm area of vasogenic edema involving t he right temporal/parietal lobes. Additional smaller areas of vasogenic edema within the bilateral oc cipital lobes, left frontal lobe near the high convexity, and right cerebellar hemisphere. Postcontra st sequences confirm the presence of underlying enhancing cystic lesions at these locations of vasoge nadine edema. Dominant lesion within the right temporal lobe measures 13 mm. These are consistent with m etastatic disease. IMPRESSION: A total of 5 enhancing lesions within the brain with the dominant lesion within the right temporal lo be measuring 13 mm consistent with intracranial metastatic disease. There is associated vasogenic ghassan ma at these locations most pronounced at the right temporal lobe lesion resulting in 4 mm of left mid line shift. ACT 112: Negative or not required by law. Electronically signed by: Kofi Tafoya M.D. 03/04/2023 2:21 PM
[2023-03-04] MEDS ORDERED: NALOXONE HCL 0.4 MG/1 ML VIAL/CARP IV PRN (15:21)
[2023-03-04] MEDS ORDERED: HYDROmorphone Bolus from PCA IV PRN (15:21)
[2023-03-04] MEDS ORDERED: HYDROmorphone PCA 30 MG/30 ML IV PRN (15:21)
--- NOTE | 2023-03-04 15:28 | Gastrointestinal Consultation ---
Date of Consultation March 04, 2023 Assessment & Plan (1) Primary adenocarcinoma of upper lobe of right lung: (2) Metastasis to brain: (3) Dysphagia: Pt is a 42 yo female w metastatic lung ca on XRT and chemo, presented w [facility] and noted to have new brain mets. She is seen for dysphagia, prior EGD in December w finding of non bleeding esophageal ulcer and she also underwent esophageal dilation which helped some w her symptoms at that time. She is requesting another EGD w dilation - PPI PO BID; Carafate 1g QID, magic mouthwash Q AC,HS - Soft diet - Given her neutropenia, it's unsafe for her to undergo EGD and repeat esophageal dilation. She already has repeat EGD scheduled to eval esophageal ulcer healing on 05/29/2023, will keep this appt - GI to sign off; pls recall prn Supervising Physician Co-Signing Physician Notes I personally saw and evaluated the patient on 03/04/2023 with HAIM Pak and agree with her findings and plan of care. 42 y/o F with metastatic lung cancer s/p chemo and radiation presented with headaches found to have new brain mets. GI was consulted for dysphagia. She previously had an EGD in December for dysphagia found to have an esophageal ulcer and underwent empiric esophageal dilation without any stenosis/stricture seen. She requested another EGD with dilation. She is very neutropenic at this time with wbc count of 0.65. It would not be safe to undergo EGD at this time with severe neutropenia. She already has another EGD arranged in May for follow up of esophageal ulcer and we will see if that can possibly be moved up. At this time recommend PPI 40 mg BID, carafate 1 g QID, magic mouth wash. Diet as tolerated. Outpatient EGD. GI will sign off but please call back with questions. Zoe Traore, DO Gastroenterology and Hepatology History of Present Illness Reason for Consultation: Dysphagia Requesting Physician: Dr. Shweta Goidnez Attending Physician: Dr. Zoe Traore History of Present Illness Pt is a 42 yo female w metastatic lung ca w XRT and chemo treatments who presented w co HAs, noted to have new brain mets. GI consulted as pt is c/o dysphagia. She is c/o having food or liquids get stuck in mid chest area after swallowing and needing to use water to "wash them down". She was having burning sensation after eating but this is improved w use of Magic Mouthwash. She had EGD by Dr. Concha Jeffries in December with dysphagia, and noted to have esophageal ulcer that's non bleeding. She had esophageal dilation up to 51Fr during that EGD and felt her swallowing was improved but recently it's worse again. Labs reviewed in chart showed thrombocytopenia, specifically severe neutropenia. Allergies Allergy/AdvReac Type Severity Reaction Status Date / Time levofloxacin [From Levaquin] Allergy Severe THROAT Verified 03/04/23 01:31 SWELLS SHUT, ITCHY--RASH PER [facility] Penicillins Allergy Severe Anaphylaxis Verified 03/04/23 01:31 clindamycin Allergy Intermediate CAUSED A Verified 03/04/23 01:31 YEAST INFECTION X 6 MONTHS povidone-iodine Allergy Intermediate Rash Verified 03/04/23 01:31 [From Betadine] silver Allergy Intermediate Rash Verified 03/04/23 01:31 [From Tegaderm AG Mesh] bupropion [From Wellbutrin] AdvReac Severe suicidal Verified 03/04/23 01:31 ideation duloxetine AdvReac Severe suicidal Verified 03/04/23 01:31 ideations sulfamethoxazole AdvReac Mild YEAST Verified 03/04/23 01:31 [From Bactrim] INFECTION trimethoprim [From Bactrim] AdvReac Mild YEAST Verified 03/04/23 01:31 INFECTION ANESTHESIA AdvReac Severe PER Uncoded 03/04/23 01:31 [facility]--PSEUDOCHLOINESTERASE---FLAT LINES PLASTIC AdvReac Severe SKIN PEELS Uncoded 03/04/23 01:31 Home Medications Medication Instructions Recorded Confirmed Type spironolactone 100 mg tablet 200 mg PO BID 09/24/19 03/04/23 History (Aldactone) albuterol sulfate 90 mcg/actuation 2 puff inhalation Q4H PRN 09/21/22 03/04/23 History aerosol inhaler (Ventolin HFA) COUGH/SOB/WHEEZING fluticasone propionate 230 2 inh inhalation BID 10/24/22 03/04/23 History mcg-salmeterol 21 mcg/actuation HFA inhaler (Advair HFA) lorazepam 0.5 mg tablet 0.5 mg PO TID PRN Anxiety 10/24/22 03/04/23 History Magic Mouthwash 300 mL mouthwash 10 ml mucous membrane ACHS #300 mL 12/04/22 03/04/23 Rx famotidine 10 mg tablet (Acid 10 mg PO BID #60 tabs 12/10/22 03/04/23 Rx Ream Cutter (famotidine)) benzonatate 100 mg capsule 100 mg PO TID PRN cough #60 caps 12/22/22 03/04/23 Rx chlorpromazine 25 mg tablet 25 mg PO QID PRN Hiccups 12/31/22 03/04/23 History ondansetron HCl 8 mg tablet 8 mg PO Q8H PRN Other 01/06/23 03/04/23 History morphine 15 mg immediate release 15 mg PO Q4H PRN Pain, Severe 01/13/23 03/04/23 History tablet pantoprazole 40 mg tablet,delayed 40 mg PO QAM #90 tabs 01/21/23 03/04/23 Rx release polyethylene glycol 3350 17 gram 17 g PO BID 02/06/23 03/04/23 History oral powder packet (Miralax) apixaban 5 mg tablet (Eliquis) 5 mg PO BID 02/07/23 03/04/23 History fluticasone propionate 50 2 spray intranasal QAM 02/07/23 03/04/23 History mcg/actuation nasal spray,suspension folic acid 1 mg tablet 1 mg PO DAILY 02/07/23 03/04/23 History lubiprostone 24 mcg capsule 24 mcg PO BID 02/07/23 03/04/23 History albuterol sulfate 2.5 mg/3 mL 2.5 mg inhalation DIRECTED PRN 03/04/23 03/04/23 History (0.083 %) solution for nebulization Shortness Of Breath Or Wheezing bisacodyl 10 mg rectal suppository 10 mg [place] BID 03/04/23 03/04/23 History dexamethasone 4 mg tablet 4 mg PO DIRECTED 03/04/23 03/04/23 History dexamethasone 4 mg tablet 8 mg PO DIRECTED 03/04/23 03/04/23 History enoxaparin 100 mg/mL subcutaneous 100 mg subcut BID 03/04/23 03/04/23 History syringe lidocaine-prilocaine 2.5 %-2.5 % 1 applic topical DIRECTED PRN 1 03/04/23 03/04/23 History topical cream HR PRIOR TO PORT ACCESS meloxicam 15 mg tablet 15 mg PO DAILY 03/04/23 03/04/23 History phenazopyridine 200 mg tablet 200 mg PO TID PRN Pain 03/04/23 03/04/23 History prochlorperazine maleate 10 mg 10 mg PO Q6H PRN NAUSEA/VOMITING 03/04/23 03/04/23 History tablet (Compazine) promethazine 25 mg tablet 12.5 mg PO Q6H PRN NAUSEA/VOMITING 03/04/23 03/04/23 History sennosides 8.6 mg tablet 17.2 mg PO TID 03/04/23 03/04/23 History sucralfate 100 mg/mL oral 10 ml PO QID 03/04/23 03/04/23 History suspension (Carafate) umeclidinium 62.5 mcg/actuation 1 inh inhalation DAILY 03/04/23 03/04/23 History blister powder for inhalation (Incruse Ellipta) varenicline 0.5 mg (11)-1 mg (42) 1 ea PO DIRECTED 03/04/23 03/04/23 History tablets in a dose pack (Chantix Starting Month Box) Patient History Medical History (Updated 03/04/23 @ 04:03 by Gautam Avila MD) ADHD Asthma Chronic cough Encounter for pre-operative examination Endometriosis of the uterus, unspecified Primary adenocarcinoma of upper lobe of right lung (10/03/22) Pseudocholinesterase deficiency Systemic lupus erythematosus Tobacco abuse Surgical History H/O right wrist surgery H/O tubal ligation H/O: hysterectomy History of cholecystectomy Hx of appendectomy S/P bronchoscopy Family History Mother Cancer Breast Grandmother (Maternal) Cancer Lung Social History Smoking Status: Current every day smoker Tobacco Type: Cigarettes Cigarettes Per Day: 1/2 pack daily; Second Hand Exposure: Yes; Do You Dip or Chew Tobacco: No; Hx Alcohol Use: No Hx Substance Use: No Preferred Language: French Communication Ability: Effective Visual Impairment: No Limitations Hearing Ability: Normal 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 Level Software 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 Required: No Beliefs That Will Affect Care: None marital status: Single Current Living Situation: Alone Current Living Situation Comment: engaged current occupational status: unemployed 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 Feels Safe at Home: Yes Diet: regular during the past year weight has: remained stable Assistive Devices: Oxygen - at Night Review of Systems Review of Systems: All systems reviewed & are unremarkable except as noted in HPI & below Physical Exam Constitutional: WD/WN, vitals as above well groomed, cooperative and comfortable Eyes: PERRL, conjunctivae normal, anicteric sclerae ENMT: external ear and nose normal, oropharynx normal Respiratory: normal respiratory effort, lungs clear to auscultation Cardiovascular: RRR, no murmur, no edema Gastrointestinal (Abdomen): normal bowel sounds, soft, nontender, no hepatosplenomegaly Skin: no rashes, warm and dry no jaundice Psychiatric: A+Ox3, euthymic affect Lymphatic: no lymphedema Results & Data Vital Signs (Past 12 Hours) Vital Signs Pulse Pulse Resp BP Pulse Ox Pulse Ox O2 Del Method 03/04/23 07:03 98 H 03/04/23 05:45 94 H 16 104/55 L 97 Nasal Cannula 03/04/23 04:38 100 H 15 96 Nasal Cannula 03/04/23 04:38 96 03/04/23 04:00 91 H 15 119/69 94 O2 Del Method O2 Flow Rate O2 Flow Rate 03/04/23 07:03 03/04/23 05:45 2 03/04/23 04:38 2 03/04/23 04:38 Nasal Cannula 2 03/04/23 04:00
[2023-03-04] MEDS ORDERED: Patient's HEIGHT &/or WEIGHT Needed SCH (16:00)
--- NOTE | 2023-03-04 18:59 | Emergency Department Note ---
Impression & Plan Vasogenic brain edema, Headache, Metastatic adenocarcinoma to brain ED Provider Note CHIEF COMPLAINT: confusion, KEE HISTORY OF PRESENT ILLNESS: This 42 yo female patient with PMH mets lung CA presents to the emergency department with complaints of sudden onset confusion in the setting of a headache. Patient states the headache has largely resolved, states slurred speech and confusion have also improved significantly. She did not have any difficulty with facial droop or coordination. Patient does have known history of metastatic disease to the brain. Patient is followed by [facility] locally in [place], Dr. Joaquín Charlton. REVIEW OF SYSTEMS: A review of systems was performed with positives and pertinent negatives listed in the history of present illness. 10 systems were reviewed and are otherwise negative. ALLERGIES: see below MEDICATIONS: see below PMH: see below SOCIAL HISTORY: see below DDx: Intracranial hemorrhage, intracranial mass, migraine headache, meningitis, seizure, among others. PHYSICAL EXAM: Vital signs reviewed. General: Chronically ill-appearing 42-year-old female, in no significant distress. Sitting up in the bed HEENT: No scleral icterus, PERRLA, neck supple. MMM. Cardiovascular: Regular rate and rhythm, no extra sounds. Pulmonary: Clear to auscultation bilaterally, normal work of breathing. Abdomen: Soft, nontender, nondistended, positive bowel sounds. Musculoskeletal: Atraumatic, no peripheral edema. Neurologic: Patient awake alert and oriented x 3, speech is clear. Moves all extremities equally. Cranial nerves II through XII are grossly intact. Skin: Warm, dry, no rash EMERGENCY DEPARTMENT COURSE/MDM: This patient was evaluated and appeared to be in no significant distress. External medical records were reviewed. Patient did have some pain and was medicated with IV Dilaudid and Zofran. Patient is noted to be leukopenic with a neutropenia. She is not febrile. CT imaging of the head was performed and reveals large amount of swelling in the right parietal region patient has known metastatic disease but previous images. Do not show midline shift or this amount of vasogenic edema. Patient was given 10 mg of IV dexamethasone. I did discuss the case with Dr. Joaquín Charlton of oncology who has recommended medical admission for radiation oncology consultation. Patient was advised of the plan and requested to go outside to call her sister and smoke a cigarette. I told her this was not possible however patient was offered a nicotine patch, oral lozenge and she declined both. Patient did agree to Ativan for acute anxiety. Case was discussed with the hospitalist service who evaluated the patient for admission and further management. MONITORING: An order for cardiac monitoring was placed and the patient is noted to be in a NSR at 96 beats per minute. RADIOLOGY: CT imaging of the brain to my interpretation reveals evidence of large amount of swelling in the right parietal region. Otherwise defer to radiology's read below. CXR to my review reveals evidence of right upper lobe consolidation, consistent with previous. Otherwise defer to radiology. EKG: To my interpretation reveals sinus tachycardia at [address] abnormality. No PVC, no PAC. QTc of 485. DISPOSITION: Admission I have personally spent greater than 32 minutes of critical care time in the direct management of this patient. This includes bedside care, interpretation of diagnostic studies, and testing, discussion with consultants, patient, and family members, and other required patient management activities. This 32 minutes is in excess of all separately billable procedures. Past Med/Surg History Medical History (Updated 03/10/23 @ 08:52 by Sneha Roper MD) ADHD Asthma Chronic cough Chronic low back pain Encounter for pre-operative examination Endometriosis of the uterus, unspecified Primary adenocarcinoma of upper lobe of right lung (10/03/22) Pseudocholinesterase deficiency Systemic lupus erythematosus Tobacco abuse Surgical History H/O right wrist surgery H/O tubal ligation H/O: hysterectomy History of cholecystectomy Hx of appendectomy S/P bronchoscopy Family History Mother Cancer Breast Grandmother (Maternal) Cancer Lung Social History Smoking Status: Current every day smoker Tobacco Type: Cigarettes Cigarettes Per Day: 1/2 pack daily; Second Hand Exposure: Yes; Do You Dip or Chew Tobacco: No; Hx Alcohol Use: No Hx Substance Use: No Preferred Language: Telugu Communication Ability: Effective Visual Impairment: No Limitations Hearing Ability: Normal Cattle Inspector Required: No Beliefs That Will Affect Care: None marital status: Single Current Living Situation: Alone Current Living Situation Comment: engaged current occupational status: unemployed 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 Feels Safe at Home: Yes Diet: regular during the past year weight has: remained stable Assistive Devices: Oxygen - at Night Allergies Allergies Allergy/AdvReac Type Severity Reaction Status Date / Time levofloxacin [From Levaquin] Allergy Severe THROAT Verified 03/04/23 01:31 SWELLS SHUT, ITCHY--RASH PER [facility] Penicillins Allergy Severe Anaphylaxis Verified 03/04/23 01:31 clindamycin Allergy Intermediate CAUSED A Verified 03/04/23 01:31 YEAST INFECTION X 6 MONTHS povidone-iodine Allergy Intermediate Rash Verified 03/04/23 01:31 [From Betadine] silver Allergy Intermediate Rash Verified 03/04/23 01:31 [From Tegaderm AG Mesh] bupropion [From Wellbutrin] AdvReac Severe suicidal Verified 03/04/23 01:31 ideation duloxetine AdvReac Severe suicidal Verified 03/04/23 01:31 ideations sulfamethoxazole AdvReac Mild YEAST Verified 03/04/23 01:31 [From Bactrim] INFECTION trimethoprim [From Bactrim] AdvReac Mild YEAST Verified 03/04/23 01:31 INFECTION ANESTHESIA AdvReac Severe PER Uncoded 03/04/23 01:31 [facility]--PSEUDOCHLOINESTERASE---FLAT LINES PLASTIC AdvReac Severe SKIN PEELS Uncoded 03/04/23 01:31 Home Meds Home Medications Medication Instructions Recorded Confirmed spironolactone 100 mg tablet 200 mg PO BID 09/24/19 03/04/23 (Aldactone) albuterol sulfate 90 mcg/actuation 2 puff inhalation Q4H PRN 09/21/22 03/04/23 aerosol inhaler (Ventolin HFA) COUGH/SOB/WHEEZING fluticasone propionate 230 2 inh inhalation BID 10/24/22 03/04/23 mcg-salmeterol 21 mcg/actuation HFA inhaler (Advair HFA) lorazepam 0.5 mg tablet 0.5 mg PO TID PRN Anxiety 10/24/22 03/04/23 chlorpromazine 25 mg tablet 25 mg PO QID PRN Hiccups 12/31/22 03/04/23 ondansetron HCl 8 mg tablet 8 mg PO Q8H PRN Other 01/06/23 03/04/23 morphine 15 mg immediate release 15 mg PO Q4H PRN Pain, Severe 01/13/23 03/04/23 tablet polyethylene glycol 3350 17 gram 17 g PO BID 02/06/23 03/04/23 oral powder packet (Miralax) fluticasone propionate 50 2 spray intranasal QAM 02/07/23 03/04/23 mcg/actuation nasal spray,suspension folic acid 1 mg tablet 1 mg PO DAILY 02/07/23 03/04/23 lubiprostone 24 mcg capsule 24 mcg PO BID 02/07/23 03/04/23 albuterol sulfate 2.5 mg/3 mL 2.5 mg inhalation DIRECTED PRN 03/04/23 03/04/23 (0.083 %) solution for nebulization Shortness Of Breath Or Wheezing bisacodyl 10 mg rectal suppository 10 mg ME BID 03/04/23 03/04/23 dexamethasone 4 mg tablet 4 mg PO DIRECTED 03/04/23 03/04/23 dexamethasone 4 mg tablet 8 mg PO DIRECTED 03/04/23 03/04/23 lidocaine-prilocaine 2.5 %-2.5 % 1 applic topical DIRECTED PRN 1 03/04/23 03/04/23 topical cream HR PRIOR TO PORT ACCESS phenazopyridine 200 mg tablet 200 mg PO TID PRN Pain 03/04/23 03/04/23 prochlorperazine maleate 10 mg 10 mg PO Q6H PRN NAUSEA/VOMITING 03/04/23 03/04/23 tablet (Compazine) promethazine 25 mg tablet 12.5 mg PO Q6H PRN NAUSEA/VOMITING 03/04/23 03/04/23 sennosides 8.6 mg tablet 17.2 mg PO TID 03/04/23 03/04/23 sucralfate 100 mg/mL oral 10 ml PO QID 03/04/23 03/04/23 suspension (Carafate) umeclidinium 62.5 mcg/actuation 1 inh inhalation DAILY 03/04/23 03/04/23 blister powder for inhalation (Incruse Ellipta) varenicline 0.5 mg (11)-1 mg (42) 1 ea PO DIRECTED 03/04/23 03/04/23 tablets in a dose pack (StyleFactorytix Starting Month Box) Previous Rx's Medication Instructions Recorded Magic Mouthwash 300 mL mouthwash 10 ml mucous membrane ACHS #300 mL 12/04/22 famotidine 10 mg tablet (Acid 10 mg PO BID #60 tabs 12/10/22 Manual Qa Tester (famotidine)) benzonatate 100 mg capsule 100 mg PO TID PRN cough #60 caps 12/22/22 pantoprazole 40 mg tablet,delayed 40 mg PO QAM #90 tabs 01/21/23 release dexamethasone 4 mg tablet 4 mg PO Q6H #40 tabs 03/06/23 Results & Data (ED) Vital Signs Vital Signs - 24 hr 03/03/23 20:55 03/04/23 00:53 03/04/23 00:53 Temperature 36.9 C Temperature Source Temporal Artery Scan Pulse Rate 114 H Pulse Rate [Apical] 96 H Pulse Rhythm [Apical] Regular Respiratory Rate 18 17 Respiratory Effort / Characteristics Non-Labored Spontaneous Respiratory Depth Normal Blood Pressure 106/75 Blood Pressure [Right Arm] 103/67 Blood Pressure Mean 85 Blood Pressure Mean [Right Arm] 79 Pulse Oximetry 96 93 Oxygen Delivery Method Room Air Room Air Room Air Sepsis Recent Fever Within 48 Hours No Sepsis New/Unexplained Change in Mental Status No Sepsis Action Taken by Nursing No Action Required 03/04/23 00:53 03/04/23 02:00 Temperature Temperature Source Pulse Rate Pulse Rate [Apical] 95 H Pulse Rhythm [Apical] Respiratory Rate 19 Respiratory Effort / Characteristics Respiratory Depth Blood Pressure Blood Pressure [Right Arm] Blood Pressure Mean Blood Pressure Mean [Right Arm] Pulse Oximetry 96 94 Oxygen Delivery Method Room Air Sepsis Recent Fever Within 48 Hours Sepsis New/Unexplained Change in Mental Status Sepsis Action Taken by Care Home Medications Current Medication List: was personally reviewed by me Laboratory Data Attestation: I reviewed the patient's lab results. 03/04/23 06:59 03/04/23 06:59 Lab Results 03/03/23 03/03/23 03/03/23 Range/Units 21:24 21:24 21:24 WBC 1.14 L (4.8-10.8) K/ul RBC 2.31 L (4.20-5.40) M/uL Hgb 8.5 L (12.0-16.0) g/dl Hct 23.7 L (37.0-47.0) % MCV 102.6 H (80.0-100.0) fL MCH 36.8 H (25.0-34.0) pg MCHC 35.9 (32.0-36.0) g/dL RDW Std Deviation 45.7 (36.4-46.3) fL RDW Coeff of Saritha 12.5 (11.5-14.5) % Plt Count 67 L (130-400) K/uL MPV 10.5 (9.4-12.4) fL Immature Gran % (Auto) 0.0 % Neut % (Auto) 24.4 % Lymph % (Auto) 57.9 % [place] % (Auto) 14.0 % Eos % (Auto) 3.7 % Baso % (Auto) 0.0 % Neut # (Auto) 0.26 L* (1.40-6.50) K/uL Lymph # (Auto) 0.62 L (1.20-3.40) K/uL [place] # (Auto) 0.15 (0.11-0.59) K/uL Eos # (Auto) 0.04 (0.00-0.50) K/uL Baso # (Auto) 0.00 (0.00-0.20) K/uL Immature Gran # (Auto) 0.00 L (0.01-0.20) K/uL Platelet Estimate Decreased L (Normal) PT 10.4 (9.0-12.0) Seconds INR 0.9 (0.9-1.1) APTT 27.1 (21.0-31.0) Seconds PTT Ratio 1.0 Sodium 136 (136-145) mmol/L Potassium 3.4 L (3.5-5.1) mmol/L Chloride 101 (98-107) mmol/L Carbon Dioxide 28 (21-32) mmol/L Anion Gap 7 (3-11) BUN 9 (6-23) mg/dl Creatinine 0.93 (0.6-1.2) mg/dl Est Cr Clr Drug Dosing Not Reportable Est GFR ( Amer) 86.6 ml/min Est GFR (Non-Af Amer) 74.7 ml/min BUN/Creatinine Ratio 9.7 L (10-20) Glucose 115 H (70-99(Fasting)) mg/dl Calcium 8.8 (8.6-10.3) mg/dl Magnesium 1.8 (1.7-2.4) mg/dl Total Bilirubin 0.6 (0.2-1.0) mg/dl AST 9 L (13-39) U/L ALT 7 (7-52) U/L Alkaline Phosphatase 90 (34-104) U/L Troponin I High Sens 7.6 (0-14) pg/ml Total Protein 6.4 (6.0-8.3) gm/dl Albumin 3.7 (3.4-5.0) gm/dl Globulin 2.7 (2.5-4.0) gm/dl Albumin/Globulin Ratio 1.4 (0.9-2) Administered Medications Discontinued Medications Acetaminophen/Butalbital/Caffeine (Butalbital/Acetamin/Caffeine Tab) 1 tab PO Q6H PRN PRN Reason: Headache Stop: 04/04/23 19:38 Last Admin: 03/06/23 07:54 Dose: 1 tab Documented By: Admin: 03/05/23 22:44 Dose: 1 tab Documented By: LISA Bisacodyl (Bisacodyl 10 Mg Supp) 10 mg ME BID MATI Stop: 04/03/23 08:59 Last Admin: 03/06/23 07:58 Dose: Not Given Documented By: Admin: 03/05/23 20:11 Dose: Not Given Documented By: Admin: 03/05/23 08:28 Dose: 10 mg Documented By: Admin: 03/04/23 21:48 Dose: Not Given Documented By: Admin: 03/04/23 09:25 Dose: Not Given Documented By: DYLAN Chlorpromazine HCl (Chlorpromazine Hcl 25 Mg Tab) 25 mg PO QID PRN PRN Reason: Hiccups Stop: 04/03/23 04:37 Last Admin: 03/06/23 12:20 Dose: 25 mg Documented By: Admin: 03/05/23 18:42 Dose: 25 mg Documented By: Admin: 03/05/23 14:22 Dose: 25 mg Documented By: Admin: 03/04/23 21:47 Dose: 25 mg Documented By: JORI Dexamethasone (Dexamethasone 4 Mg Tab) 4 mg PO Q6H MATI Stop: 04/04/23 07:59 Last Admin: 03/05/23 08:59 Dose: Not Given Documented By: MICHELLE Dexamethasone Sodium Phosphate (DexamethasonePf 10 Mg/Ml Vial) 10 mg IV NOW ONE Stop: 03/04/23 01:01 Last Admin: 03/04/23 01:12 Dose: 10 mg Documented By: CHRIS Diphenhydramine HCl (Diphenhydramine 50 Mg/Ml Vial) 12.5 mg IV NOW STA Stop: 03/05/23 00:10 Last Admin: 03/05/23 00:27 Dose: 12.5 mg Documented By: JORI Diphenhydramine HCl (Diphenhydramine Capsule 25 Mg Cap) 25 mg PO Q6H PRN PRN Reason: itching/rash Stop: 04/04/23 11:13 Last Admin: 03/05/23 22:50 Dose: 25 mg Documented By: LISA Famotidine (Famotidine 10 Mg Tablet) 10 mg PO BID [facility] Stop: 04/03/23 08:59 Last Admin: 03/06/23 08:00 Dose: 10 mg Documented By: Admin: 03/05/23 20:14 Dose: 10 mg Documented By: Admin: 03/05/23 08:27 Dose: 10 mg Documented By: Admin: 03/04/23 21:47 Dose: 10 mg Documented By: Admin: 03/04/23 09:20 Dose: 10 mg Documented By: DYLAN Fluticasone Propionate (Fluticasone Propionate Na Spr 16 Gm Btl) 2 sprays NA QAM [facility] Stop: 04/03/23 08:59 Last Admin: 03/06/23 07:58 Dose: 2 sprays Documented By: Admin: 03/05/23 08:23 Dose: 2 sprays Documented By: Admin: 03/04/23 09:17 Dose: 2 sprays Documented By: DYLAN Fluticasone/Vilanterol (Fluticasone/Vilanterol 200/25mcg 14 Puffs/Inhaler) 1 puffs INH DAILY [facility] Stop: 04/03/23 08:59 Last Admin: 03/06/23 07:55 Dose: 1 puffs Documented By: Admin: 03/05/23 08:24 Dose: 1 puffs Documented By: Admin: 03/04/23 09:15 Dose: 1 puffs Documented By: DYLAN Folic Acid (Folic Acid 1 Mg Tab) 1 mg PO DAILY [facility] Stop: 04/03/23 08:59 Last Admin: 03/06/23 07:56 Dose: 1 mg Documented By: Admin: 03/05/23 08:27 Dose: 1 mg Documented By: Admin: 03/04/23 09:20 Dose: 1 mg Documented By: DYLAN Gadobutrol (Gadobutrol 65ml Vial) 9 ml IV ONCE ONE Stop: 03/04/23 12:10 Last Admin: 03/04/23 12:10 Dose: 9 ml Documented By: XANDER Gadobutrol (Gadobutrol 65ml Vial) 8.5 ml IV ONCE ONE Stop: 03/05/23 01:36 Last Admin: 03/05/23 01:36 Dose: 8.5 ml Documented By: ESPERANZA Hydromorphone HCl (Hydromorphone Inj 0.5 Mg/0.5 Ml Syr) 0.5 mg IV NOW STA Stop: 03/04/23 01:01 Last Admin: 03/04/23 01:12 Dose: 0.5 mg Documented By: CHRIS Hydromorphone HCl (Hydromorphone Inj 0.5 Mg/0.5 Ml Syr) 0.5 mg IV Q1H PRN PRN Reason: Pain Stop: 03/18/23 02:39 Last Admin: 03/04/23 04:40 Dose: 0.5 mg Documented By: Admin: 03/04/23 03:48 Dose: 0.5 mg Documented By: Admin: 03/04/23 02:42 Dose: 0.5 mg Documented By: CHRIS Hydromorphone HCl (Hydromorphone Inj 0.5 Mg/0.5 Ml Syr) 0.5 mg IV Q3H PRN PRN Reason: Pain Stop: 03/18/23 04:37 Last Admin: 03/04/23 12:42 Dose: 0.5 mg Documented By: Admin: 03/04/23 08:19 Dose: 0.5 mg Documented By: Admin: 03/04/23 06:40 Dose: 0.5 mg Documented By: Admin: 03/04/23 05:44 Dose: 0.5 mg Documented By: CHRIS Hydromorphone HCl (Hydromorphone Inj 0.5 Mg/0.5 Ml Syr) 0.5 mg IV NOW STA Stop: 03/04/23 08:51 Last Admin: 03/04/23 09:09 Dose: 0.5 mg Documented By: DYLAN Hydromorphone HCl (Hydromorphone Bolus From Waist Presser) 0.5 mg IV Q2H PRN PRN Reason: [employer]IVER pain relief for activity Stop: 03/18/23 15:20 Last Admin: 03/04/23 17:29 Dose: 0.5 mg Documented By: DYLAN Co-signed By: BASSAM Hydromorphone HCl (Hydromorphone Waist Presser 30 Mg/30 Ml) 30 mg IV PRN PRN; Protocol PRN Reason: [employer]IVER Pain Titration Stop: 03/18/23 15:20 Last Admin: 03/04/23 16:21 Dose: 30 mg Documented By: DYLAN Co-signed By: ERNA Hydromorphone HCl (Hydromorphone Inj 0.5 Mg/0.5 Ml Syr) 0.5 mg IV NOW STA Stop: 03/04/23 15:22 Last Admin: 03/04/23 15:39 Dose: 0.5 mg Documented By: DYLAN Hydromorphone HCl (Hydromorphone Inj 0.5 Mg/0.5 Ml Syr) 0.5 mg IV Q1H PRN PRN Reason: ssevere breakthrough pain Stop: 03/18/23 20:29 Last Admin: 03/06/23 10:10 Dose: 0.5 mg Documented By: Admin: 03/06/23 08:06 Dose: 0.5 mg Documented By: Admin: 03/06/23 06:26 Dose: 0.5 mg Documented By: Admin: 03/06/23 03:23 Dose: 0.5 mg Documented By: Admin: 03/06/23 01:02 Dose: 0.5 mg Documented By: Admin: 03/05/23 20:09 Dose: 0.5 mg Documented By: Admin: 03/05/23 17:43 Dose: 0.5 mg Documented By: Admin: 03/05/23 15:18 Dose: 0.5 mg Documented By: Admin: 03/05/23 13:21 Dose: 0.5 mg Documented By: Admin: 03/05/23 08:44 Dose: 0.5 mg Documented By: Admin: 03/05/23 05:49 Dose: 0.5 mg Documented By: Admin: 03/05/23 03:53 Dose: 0.5 mg Documented By: Admin: 03/05/23 00:53 Dose: 0.5 mg Documented By: Admin: 03/04/23 23:49 Dose: 0.5 mg Documented By: Admin: 03/04/23 22:42 Dose: 0.5 mg Documented By: JORI Sodium Chloride (Nss 1000ml) 500 mls @ 999 mls/hr IV .Q31M ONE Stop: 03/04/23 01:31 Last Infusion: 03/04/23 02:46 Dose: 0 mls/hr Documented By: Admin: 03/04/23 01:11 Dose: 999 mls/hr Documented By: CHRIS Sodium Chloride (Nss 1000ml) 1,000 mls @ 125 mls/hr IV .Q8H MATI Stop: 04/03/23 01:14 Last Infusion: 03/04/23 05:46 Dose: 0 mls/hr Documented By: Admin: 03/04/23 01:12 Dose: 125 mls/hr Documented By: CHRIS Sodium Chloride (Nss) 1,000 mls @ 100 mls/hr IV .Q10H MATI Stop: 03/04/23 14:37 Last Infusion: 03/04/23 15:39 Dose: 0 mls/hr Documented By: Admin: 03/04/23 04:57 Dose: 100 mls/hr Documented By: CHRIS Dexamethasone 4 mg/ Syringe 1 mls @ 1 mls/min IV Q6H MATI Stop: 04/03/23 07:59 Last Admin: 03/05/23 01:40 Dose: 1 mls/min Documented By: Admin: 03/04/23 21:00 Dose: 1 mls/min Documented By: Admin: 03/04/23 14:06 Dose: 1 mls/min Documented By: Admin: 03/04/23 09:11 Dose: 1 mls/min Documented By: DYLAN Sodium Chloride (Nss) 1,000 mls @ 15 mls/hr IV .Q24H MATI Stop: 03/18/23 15:21 Last Infusion: 03/04/23 21:25 Dose: 0 mls/hr Documented By: Admin: 03/04/23 16:22 Dose: 15 mls/hr Documented By: DYLAN Lactated Ringer's (Lr) 1,000 mls @ 60 mls/hr IV .[id number] ONE Stop: 03/05/23 16:46 Last Infusion: 03/05/23 13:19 Dose: 0 mls/hr Documented By: Admin: 03/05/23 00:27 Dose: 60 mls/hr Documented By: JORI Ceftriaxone Sodium 2,000 mg/ (Dextrose) 70 mls @ 100 mls/hr IV Q24H [facility]; Protocol Stop: 03/15/23 04:59 Last Infusion: 03/05/23 05:49 Dose: 0 mls/hr Documented By: Admin: 03/05/23 04:44 Dose: 100 mls/hr Documented By: JORI Dexamethasone 4 mg/ Syringe 1 mls @ 1 mls/min IV NOW STA Stop: 03/05/23 09:09 Last Admin: 03/05/23 09:57 Dose: 1 mls/min Documented By: MICHELLE Dexamethasone 10 mg/ Syringe 2.5 mls @ 1 mls/min IV Q6H MATI Stop: 04/04/23 11:29 Last Admin: 03/06/23 11:32 Dose: 1 mls/min Documented By: Admin: 03/06/23 06:26 Dose: 1 mls/min Documented By: Admin: 03/05/23 22:44 Dose: 1 mls/min Documented By: Admin: 03/05/23 16:39 Dose: 1 mls/min Documented By: Admin: 03/05/23 12:14 Dose: Not Given Documented By: MICHELLE Ioversol (Optiray 320 100ml) 91 ml IV ONCE ONE Stop: 03/04/23 23:01 Last Admin: 03/04/23 23:01 Dose: 91 ml Documented By: EMORY Lorazepam (Lorazepam 1 Mg Tab) 1 mg SL NOW STA Stop: 03/04/23 01:47 Last Admin: 03/04/23 02:42 Dose: 1 mg Documented By: CHRIS Lorazepam (Lorazepam 0.5 Mg Tab) 0.5 mg PO TID PRN PRN Reason: Anxiety Stop: 04/03/23 04:37 Last Admin: 03/06/23 08:33 Dose: 0.5 mg Documented By: Admin: 03/05/23 03:59 Dose: 0.5 mg Documented By: JORI Lubiprostone (Lubiprostone 8 Mcg Cap) 24 mcg PO BID [facility] Stop: 04/03/23 08:59 Last Admin: 03/06/23 07:56 Dose: 24 mcg Documented By: Admin: 03/05/23 20:16 Dose: 24 mcg Documented By: Admin: 03/05/23 08:20 Dose: Not Given Documented By: Admin: 03/04/23 21:07 Dose: 24 mcg Documented By: Admin: 03/04/23 09:23 Dose: 24 mcg Documented By: DYLAN Methylnaltrexone [place] (Methylnaltrexone [place] 12 Mg/0.6 Ml Vial) 12 mg SQ Q2D [facility] Stop: 04/04/23 12:29 Last Admin: 03/05/23 13:31 Dose: 12 mg Documented By: MICHELLE Morphine Sulfate (Morphine Sulfate Ir 15 Mg Tab (Immediate Release)) 15 mg PO Q4H PRN PRN Reason: Pain, Severe Stop: 03/18/23 20:25 Last Admin: 03/06/23 14:44 Dose: 15 mg Documented By: Admin: 03/05/23 22:50 Dose: 15 mg Documented By: Admin: 03/05/23 10:10 Dose: 15 mg Documented By: Admin: 03/05/23 01:40 Dose: 15 mg Documented By: Admin: 03/04/23 21:48 Dose: 15 mg Documented By: JORI Multi-Ingredient Cream (Eucerin Cr 120 Gm Jar) 1 appln EXT TID MATI Stop: 04/04/23 13:59 Last Admin: 03/06/23 14:45 Dose: Not Given Documented By: Admin: 03/06/23 08:00 Dose: 1 appln Documented By: Admin: 03/05/23 20:17 Dose: 1 appln Documented By: Admin: 03/05/23 13:19 Dose: 1 appln Documented By: MICHELLE Multi-Ingredient Mouthwash/Gargle (First - Mouthwash Blm 119 Ml) 10 ml PO ACHS [facility] Stop: 04/03/23 07:29 Last Admin: 03/06/23 11:32 Dose: 10 ml Documented By: Admin: 03/06/23 07:59 Dose: 10 ml Documented By: Admin: 03/05/23 20:16 Dose: 10 ml Documented By: Admin: 03/05/23 16:40 Dose: 10 ml Documented By: Admin: 03/05/23 13:20 Dose: 10 ml Documented By: Admin: 03/05/23 08:28 Dose: 10 ml Documented By: Admin: 03/04/23 21:48 Dose: 10 ml Documented By: Admin: 03/04/23 17:25 Dose: 10 ml Documented By: Admin: 03/04/23 12:44 Dose: 10 ml Documented By: Admin: 03/04/23 09:24 Dose: 10 ml Documented By: DYLAN Ondansetron HCl (Ondansetron Inj 2 Mg/Ml 2 Ml Vial) 4 mg IV NOW STA Stop: 03/04/23 01:01 Last Admin: 03/04/23 01:12 Dose: 4 mg Documented By: CHRIS Ondansetron HCl (Ondansetron Inj 2 Mg/Ml 2 Ml Vial) 4 mg IV Q6H PRN PRN Reason: Nausea Stop: 04/03/23 04:37 Last Admin: 03/05/23 05:47 Dose: 4 mg Documented By: Admin: 03/04/23 12:42 Dose: 4 mg Documented By: DYLAN Pantoprazole Sodium (Pantoprazole 40 Mg Tab) 40 mg PO QAM MATI Stop: 04/03/23 08:59 Last Admin: 03/04/23 09:19 Dose: 40 mg Documented By: DYLAN Pantoprazole Sodium (Pantoprazole 40 Mg Tab) 40 mg PO BID MATI Stop: 04/03/23 20:59 Last Admin: 03/06/23 07:57 Dose: 40 mg Documented By: Admin: 03/05/23 20:15 Dose: 40 mg Documented By: Admin: 03/05/23 08:27 Dose: 40 mg Documented By: Admin: 03/04/23 21:01 Dose: 40 mg Documented By: YADI Phenazopyridine HCl (Phenazopyridine Hcl 100 Mg Tab) 100 mg PO TID PRN PRN Reason: Bladder pain Stop: 04/04/23 00:22 Last Admin: 03/06/23 14:44 Dose: 100 mg Documented By: Admin: 03/06/23 08:04 Dose: 100 mg Documented By: Admin: 03/05/23 01:39 Dose: 100 mg Documented By: JORI Polyethylene Glycol (Polyethylene (Miralax) 17 Gm Pack) 17 gm PO BID MATI Stop: 04/03/23 08:59 Last Admin: 03/06/23 07:59 Dose: Not Given Documented By: Admin: 03/05/23 20:13 Dose: Not Given Documented By: Admin: 03/05/23 08:28 Dose: 17 gm Documented By: Admin: 03/04/23 21:48 Dose: 17 gm Documented By: Admin: 03/04/23 09:16 Dose: 17 gm Documented By: DYLAN Sennosides (Senna 8.6 Mg Tab) 17.2 mg PO TID MATI Stop: 04/03/23 08:59 Last Admin: 03/06/23 14:45 Dose: Not Given Documented By: Admin: 03/06/23 07:57 Dose: 17.2 mg Documented By: Admin: 03/05/23 20:15 Dose: 17.2 mg Documented By: Admin: 03/05/23 13:21 Dose: 17.2 mg Documented By: Admin: 03/05/23 08:27 Dose: 17.2 mg Documented By: Admin: 03/04/23 21:04 Dose: 17.2 mg Documented By: Admin: 03/04/23 14:06 Dose: 17.2 mg Documented By: Admin: 03/04/23 09:18 Dose: 17.2 mg Documented By: DYLAN Spironolactone (Spironolactone 100 Mg Tab) 200 mg PO BID17 MATI Stop: 04/03/23 08:59 Last Admin: 03/06/23 07:57 Dose: 200 mg Documented By: Admin: 03/05/23 16:39 Dose: 200 mg Documented By: Admin: 03/05/23 08:27 Dose: 200 mg Documented By: Admin: 03/04/23 17:24 Dose: 200 mg Documented By: Admin: 03/04/23 09:19 Dose: 200 mg Documented By: DYLAN Sucralfate (Sucralfate 1 Gm/10 Ml Udc) 1 gm PO ACHS MATI Stop: 04/03/23 07:29 Last Admin: 03/06/23 11:32 Dose: 1 gm Documented By: Admin: 03/06/23 07:52 Dose: 1 gm Documented By: Admin: 03/05/23 20:15 Dose: 1 gm Documented By: Admin: 03/05/23 16:40 Dose: 1 gm Documented By: Admin: 03/05/23 13:20 Dose: 1 gm Documented By: Admin: 03/05/23 08:27 Dose: 1 gm Documented By: Admin: 03/04/23 21:00 Dose: 1 gm Documented By: Admin: 03/04/23 17:25 Dose: 1 gm Documented By: Admin: 03/04/23 12:44 Dose: 1 gm Documented By: Admin: 03/04/23 09:20 Dose: 1 gm Documented By: DYLAN Umeclidinium [place] (Umeclidinium [place] 62.5mcg/Blister 7 Puffs/Inhaler) 1 puffs INH DAILY MATI Stop: 04/03/23 08:59 Last Admin: 03/06/23 07:56 Dose: 1 puffs Documented By: Admin: 03/05/23 08:24 Dose: 1 puffs Documented By: Admin: 03/04/23 09:15 Dose: 1 puffs Documented By: DYLAN Imaging Data Radiologist's Impression: Chest X-Ray 03/03/23 21:00 XR chest 1V portable HISTORY: 42 years-old Female stroke alert acute strokelike symptoms COMPARISON: 01/18/2023 TECHNIQUE: AP view of the chest FINDINGS: Cardiomediastinal hilar silhouettes are unchanged. Right IJ Ympdaa-m-Xsip catheter is noted with distal tip in expected location of the superior cavoatrial junction. Spiculated right upper lobe lesion measuring approximately 3 cm is again noted with adjacent linear scarring. Mild pulmonary emphysema. IMPRESSION: 1. Mild emphysema without acute process. 2. Right upper lobe lesion redemonstrated. ACT 112: Negative or not required by law. The above report was generated using voice recognition software. It may contain grammatical, syntax or spelling errors. Electronically signed by: Gamaliel Mahan M.D. 03/04/2023 7:06 AM Discharge Plan Visit Data Chief Complaint: TIA Symptoms Stated Complaint: SLURRED SPEACH, LOSS OF BALNCE ED Provider: Sneha Roper Discharge Problem: Vasogenic brain edema, Headache, Metastatic adenocarcinoma to brain Patient Disposition: Admitted As Inpatient Condition: Fair Discharge Instructions Interventions: ED Discharge Assessment Last Done: 03/04/23 21:18
[2023-03-04] MEDS: PANTOprazole 40 MG TAB PO SCH (21:01)
[2023-03-04] MEDS: chlorproMAZINE HCL 25 MG TAB PO PRN (21:47)
[2023-03-04] MEDS: MoRPHine SULFATE IR 15 MG TAB (IMMEDIATE RELEASE) PO PRN (21:48)
--- NOTE | 2023-03-04 22:44 | Communication Note ---
Date of Service: March 04, 2023 Patient complaining of worsening abdominal pain with dysuria symptoms. Denies flank pain. 1 episode of emesis. Patient thinks her skin color is yellow. UA negative WBC CT abdomen pelvis: 1. RIGHT mid pole renal mass measures 4.5 x 4.1 x 4.6 cm. Differential includes renal cell carcinoma versus developing intrarenal abscess. 2. Additional low-attenuation mass in the inferior LEFT kidney measures 2.4 x 2.3 cm. This is of similar appearance to the larger right-sided mass. MRI with contrast recommended for further evaluation. MRI abdomen: . Rounded masslike regions of heterogeneous enhancement within the kidneys bilaterally. On the right measuring approximately 4.6 x 4.1 cm and on the left measuring 2.6 x 2.5 cm. Differential includes renal cell carcinoma and pyelonephritis. 2. Left adrenal adenoma measuring 1.6 cm. AP ? Pyelonephritis IV ceftriaxone for now
[2023-03-04 22:54] LABS: Alanine Aminotransferase 8 U/L (7-52); Albumin Level 3.5 gm/dl (3.4-5.0); Alkaline Phosphatase 85 U/L (34-104); Aspartate Aminotransferase 9 U/L (13-39); Bilirubin Direct 0.1 mg/dl (0-0.2); Bilirubin,Total 0.5 mg/dl (0.2-1.0); Lipase 9 U/L (11-82); Total Protein 6.3 gm/dl (6.0-8.3)
[2023-03-04] MEDS ORDERED: OPTIRAY 320 100ml IV ONE (23:00)
--- NOTE | 2023-03-05 | CT Scan Report ---
Exam(s): CT ABDOMEN + PELVIS With Contrast IV Amt: 91 ml opti 320 EXAM: CT Abdomen and Pelvis With Intravenous Contrast CLINICAL HISTORY: Reason for exam: worsening abd pain. TECHNIQUE: Axial computed tomography images of the abdomen and pelvis with intravenous contrast. CTDI is 27 mGy and DLP is 1428 mGy-cm. Automated exposure control was utilized for the study. A dose lowering technique was utilized adhering to the principles of ALARA. CONTRAST: Patient received 91 ml opti 320 of IV contrast COMPARISON: No relevant prior studies available. FINDINGS: Lung bases: Unremarkable. No mass. No consolidation. ABDOMEN: Liver: Unremarkable. No mass. Gallbladder and bile ducts: Unremarkable. No calcified stones. No ductal dilation. Pancreas: Unremarkable. No mass. No ductal dilation. Spleen: Unremarkable. No splenomegaly. Adrenals: Unremarkable. No mass. Kidneys and ureters: RIGHT mid pole renal mass measures 4.5 x 4.1 x 4. 6 cm. Differential includes renal cell carcinoma versus developing intrarenal abscess. Additional low-attenuation mass in the inferior LEFT kidney measures 2.4 x 2.3 cm. This is of similar appearance to the larger right-sided mass. Stomach and bowel: Diverticulosis, without acute diverticulitis. No small bowel obstruction. No free intraperitoneal air. PELVIS: Appendix: No findings to suggest acute appendicitis. Bladder: Unremarkable. No mass. Reproductive: Hysterectomy. ABDOMEN and PELVIS: Intraperitoneal space: Unremarkable. No free air. No significant fluid collection. Bones/joints: Degenerative changes of the spine. No acute fracture. No dislocation. Soft tissues: Unremarkable. Vasculature: Atherosclerotic changes of the aorta. No abdominal aortic aneurysm. Lymph nodes: Unremarkable. No enlarged lymph nodes. IMPRESSION: 1. RIGHT mid pole renal mass measures 4.5 x 4.1 x 4.6 cm. Differential includes renal cell carcinoma versus developing intrarenal abscess. 2. Additional low-attenuation mass in the inferior LEFT kidney measures 2.4 x 2.3 cm. This is of similar appearance to the larger right-sided mass. MRI with contrast recommended for further evaluation. Electronically signed by: Tristen Ross MD 03/04/23 23:59 PM
[2023-03-05] MEDS ORDERED: LACTATED RINGER'S 1,000 ML IV ONE (00:07)
[2023-03-05] MEDS ORDERED: diphenhydrAMINE 50 MG/ML VIAL IV STA (00:09)
[2023-03-05] MEDS: HYDROmorphone INJ 0.5 MG/0.5 ML SYR IV PRN ×8 (00:53→20:09)
[2023-03-05 01:19] LABS: Appearance Urine Clear (Clear); Bilirubin Urine Negative (Negative); Blood Urine Negative (Negative); Color Urine Yellow; Glucose Urine UA Negative (Negative); Ketones Urine Negative (Negative); Leukocyte Esterase Urine Negative (Negative); Nitrite Urine Negative (Negative); Protein Urine Negative (Negative); Specific Gravity Urine 1.039 (1.000-1.030); Urobilinogen Urine Negative (Negative); pH Urine 8.5 (4.5-7.5)
[2023-03-05] MEDS ORDERED: GADOBUTROL 65ML VIAL IV ONE (01:35)
[2023-03-05] MEDS: PHENAZOPYRIDINE HCL 100 MG TAB PO PRN (01:39)
[2023-03-05] MEDS: dexAMETHasone 4 MG in SYRINGE 0 ML IV SCH (01:40)
[2023-03-05] MEDS: MoRPHine SULFATE IR 15 MG TAB (IMMEDIATE RELEASE) PO PRN ×3 (01:40→22:50)
[2023-03-05] MEDS: LORazepam 0.5 MG TAB PO PRN (03:59)
--- NOTE | 2023-03-05 04:15 | Magnetic Resonance Report ---
Exam(s): MRI ABDOMEN W/WO Contrast IV EXAM: MR Abdomen Without and With Intravenous Contrast CLINICAL HISTORY: Reason for exam: abd pain, abn ct. TECHNIQUE: Multiplanar magnetic resonance images of the abdomen without and with intravenous contrast. CONTRAST: Patient received of IV contrast COMPARISON: CT abdomen pelvis 03/04/2023 FINDINGS: Lung bases: Unremarkable. No mass. No consolidation. Liver: Unremarkable. No mass. Gallbladder and bile ducts: Status post cholecystectomy. No biliary dilatation. No filling defect within the common bile duct. Pancreas: Unremarkable. No ductal dilation. No mass. Spleen: Unremarkable. No splenomegaly. Adrenals: Left adrenal adenoma measuring 1.6 cm. Normal appearance of the right adrenal gland. Kidneys and ureters: Rounded masslike regions of heterogeneous enhancement within the kidneys bilaterally. On the right measuring approximately 4.6 x 4.1 cm and on the left measuring 2.6 x 2.5 cm. No hydronephrosis. Stomach and bowel: Unremarkable. No obstruction. Intraperitoneal space: Unremarkable. No significant fluid collection. Soft tissues: Unremarkable. Vasculature: Unremarkable. No abdominal aortic aneurysm. Lymph nodes: Unremarkable. No enlarged lymph nodes. IMPRESSION: 1. Rounded masslike regions of heterogeneous enhancement within the kidneys bilaterally. On the right measuring approximately 4.6 x 4.1 cm and on the left measuring 2.6 x 2.5 cm. Differential includes renal cell carcinoma and pyelonephritis. 2. Left adrenal adenoma measuring 1.6 cm. Electronically signed by: Peyman Barr MD 03/05/23 04:15 AM
[2023-03-05] MEDS ORDERED: cefTRIAXone SODIUM 2,000 MG in DEXTROSE 5% 50 ML IV SCH (05:00)
[2023-03-05] MEDS: ONDANSETRON INJ 2 MG/ML 2 ML VIAL IV PRN (05:47)
[2023-03-05 06:26] LABS: BUN Creatinine Ratio 11.8 (10-20); Creatinine Clr Calc Pharmacy 103.1 ml/min; Est GFR (African American) 110.6 ml/min; Est GFR (Non-African American) 95.4 ml/min; Potassium 4.3 mmol/L (3.5-5.1)
[2023-03-05 06:36] LABS: Hematocrit (blood only) 23.4 % (37.0-47.0); Hemoglobin 8.2 g/dl (12.0-16.0); Mean Corpuscular Hemoglobin 36.6 pg (25.0-34.0); Mean Corpuscular Volume 104.5 fL (80.0-100.0); Mean Platelet Volume 10.5 fL (9.4-12.4); Nucleated RBC # (auto) 0.03 K/uL (0.00-0.12); Nucleated RBC % (auto) 2.1 %; Platelet Count 114 K/uL (130-400); RDW Coefficient of Variation 12.8 % (11.5-14.5); RDW Standard Deviation 46.2 fL (36.4-46.3); Red Blood Count 2.24 M/uL (4.20-5.40); White Blood Count 1.46 K/ul (4.8-10.8)
[2023-03-05 06:41] LABS: ALC (manual) 0.48 K/uL (1.2-3.4); ANC (manual) 0.91 K/uL (1.4-6.5); Lymphocytes # (manual) 0.48 K/uL (1.2-3.4); Lymphocytes % (manual) 33 %; Metamyelocytes # (manual) 0.01 K/uL (0-0); Metamyelocytes % (manual) 1 %; Monocytes # (manual) 0.06 K/uL (0.11-0.59); Monocytes % (manual) 4 %; Neutrophils # (manual) 0.91 K/uL (1.40-6.50); Neutrophils % (manual) 62 %; Polychromasia 1+
--- NOTE | 2023-03-05 07:47 | Hospitalist Progress Note ---
Date of Service March 05, 2023 Assessment & Plan (1) Metastasis to brain: Plan: 42-year-old female with past med significant for metastatic lung cancer to kidneys and brain, lupus, bipolar disorder, ADHD, fibromyalgia, Raynaud's disease, pseudocholinesterase deficiency, PCOS comes because severe headaches and confusion and found to have brain mets. Brain mets and severe headaches Metastatic lung cancer diagnosed in August CT scan of head showing 6 cm area of white matter hypoattenuation/vasogenic edema with associated mass effect and 6 mm leftward midline shift. S/p radiation treatment to the chest in December She is currently getting chemo and had first cycle ER discussed with heme-onc Dr.Nilesh Charlton and recommend to keep the patient here and consult radiation oncology-plans to start XRT therapy in next 1-2 days. Continues on decadron 4mg IV q6hrs, she prefers to stay on IV for the duration of her hospital stay. KEE still severe and wants to try fioricet as needed for the pain. Metastatic lung cancer Management as per heme-onc and radiation oncology Continues on carboplatin/Keytruda/Alimta Requests another opinion from [facility]-consulted Dr. Jimenez Dysphagia Possible radiation esophagitis Patient had an esophageal dilatation in December and thinks she may needed again Per GI continue Protonix and sucralfate as she had esophageal ulcer in the last EGD. Very unlikely that she is an appropriate candidate for esophageal dilation given brain mets, pancytopenia, etc. Agree with conservative management of symptoms with medications at this time. History of pulmonary embolism CTA chest december 31 2022 Right lower lobe subsegmental PE. CTA chest january 05 2023 No PE. On Eliquis. discussed with Heme/onco. To hold eliquis for now because of low platelets and brain mets Pancytopenia 2/2 chemotherapy neutropenic without fever or signs/sxs of infection Cont to monitor. SLE Currently not on any treatment, stable Follows with rheumatology PCOS chronic, stable. on Aldactone. DVT prophylaxis Scds for now Disposition-cont current hospital stay while getting transitioned into XRT therapy of the brain. Patient and her are worried about her prognosis and looking for realistic expectations. Patient requestint to speak with palliative provider, also. This request was placed. Full code I spent a total [id number] coordinating, documenting, and providing care for this patient excluding time spent in the performance of separately billed services [facility] Hospitalist Admission and Anticipated Discharge Date Admission Date: March 04, 2023 Subjective 42-year-old female with metastatic lung cancer to kidneys and bones presents with worsening confusion and headache. Metastatic disease to brain found and confirmed wtih brain MRI. Rad onc consulted and planning XRT to brain. She is on chemotherapy to include Keytruda and recently finished first cycle we reviewed overnight abdominal CT and MRI including identifying new lesions she denies any further abdominal discomfort and wanted solid foods this morning no vomiting reports headache present, and better with the dilaudid +rash on arms chest and legs of concern and itching present WBC and platelets improved. Oriented I spoke with her for a prolonged period of time in the room 45 minutes and primary RN was with me. Also, I connected with her by phone for about 15-20 minutes and updated him wtih the plan, answering all questions, also. Physical Exam Physical Exam: CONSTITUTIONAL: WNWD, vitals as above, generally well-appearing, NAD EYES: normal conjunctivae, no scleral icterus, ENT: external ear and nose normal, NECK: trachea midline, RESPIRATORY: clear to auscultation bilaterally, no crackles, rales or wheezes, normal respiratory effort CARDIOVASCULAR: regular rate and rhythm, S1 and 2 heard without murmurs, gallops or rubs, no JVD, no peripheral edema GASTROINTESTINAL: soft, NTND MUSCULOSKELETAL: strength 5/5 throughout, head is normocephalic and atraumatic, ambulates independently SKIN: warm and dry, very minor papular rash that is intermittent in a small spot on her left anterior chest--no other locations are that significant except some minor rash on upper back. NEUROLOGIC: CN 2-12 grossly intact, no sensory deficit, normal cognition, normal speech, no tremor PSYCHIATRIC: alert cooperative and oriented to person, place and time. Euthymic mood, makes good eye contact, language grossly intact, recent and remote memory grossly intact. Results & Data Results & Data Vital Signs (Past 12 Hours) Vital Signs Temp Pulse Pulse Resp BP Pulse Ox O2 Del Method 03/05/23 07:31 36.5 C 86 16 109/69 99 Room Air 03/04/23 23:30 Room Air 03/04/23 21:29 36.8 C 95 H 18 143/94 H 98 Room Air 03/04/23 20:03 93 H 16 132/94 96 Room Air Laboratory Results Short CBC 03/04/23 03/05/23 Range/Units 06:59 05:33 WBC 0.65 L* 1.46 L (4.8-10.8) K/ul Hgb 8.1 L 8.2 L (12.0-16.0) g/dl Hct 22.7 L 23.4 L (37.0-47.0) % Plt Count 69 L 114 L D (130-400) K/uL BMP 03/04/23 03/05/23 06:59 05:33 Sodium 138 135 L Potassium 3.8 4.3 Chloride 105 105 Carbon Dioxide 28 25 BUN 8 9 Creatinine 0.80 0.76 Glucose 137 H 140 H Calcium 8.6 9.0 Liver Function 03/04/23 Range/Units 06:59 Total Bilirubin 0.5 (0.2-1.0) mg/dl Direct Bilirubin 0.1 (0-0.2) mg/dl AST 9 L (13-39) U/L ALT 8 (7-52) U/L Alkaline Phosphatase 85 (34-104) U/L Albumin 3.5 (3.4-5.0) gm/dl Urine 03/05/23 Range/Units 00:38 Urine Color Yellow Urine Appearance Clear (Clear) Urine pH 8.5 H (4.5-7.5) Ur Specific [place] 1.039 H (1.000-1.030) Urine Protein Negative (Negative) Urine Glucose (UA) Negative (Negative) Diagnostic Findings Abdomen/Pelvis CT 03/04/23 22:35 Exam(s): CT ABDOMEN + PELVIS With Contrast IV Amt: 91 ml opti 320 EXAM: CT Abdomen and Pelvis With Intravenous Contrast CLINICAL HISTORY: Reason for exam: worsening abd pain. TECHNIQUE: Axial computed tomography images of the abdomen and pelvis with intravenous contrast. CTDI is 27 mGy and DLP is 1428 mGy-cm. Automated exposure control was utilized for the study. A dose lowering technique was utilized adhering to the principles of ALARA. CONTRAST: Patient received 91 ml opti 320 of IV contrast COMPARISON: No relevant prior studies available. FINDINGS: Lung bases: Unremarkable. No mass. No consolidation. ABDOMEN: Liver: Unremarkable. No mass. Gallbladder and bile ducts: Unremarkable. No calcified stones. No ductal dilation. Pancreas: Unremarkable. No mass. No ductal dilation. Spleen: Unremarkable. No splenomegaly. Adrenals: Unremarkable. No mass. Kidneys and ureters: RIGHT mid pole renal mass measures 4.5 x 4.1 x 4. 6 cm. Differential includes renal cell carcinoma versus developing intrarenal abscess. Additional low-attenuation mass in the inferior LEFT kidney measures 2.4 x 2.3 cm. This is of similar appearance to the larger right-sided mass. Stomach and bowel: Diverticulosis, without acute diverticulitis. No small bowel obstruction. No free intraperitoneal air. PELVIS: Appendix: No findings to suggest acute appendicitis. Bladder: Unremarkable. No mass. Reproductive: Hysterectomy. ABDOMEN and PELVIS: Intraperitoneal space: Unremarkable. No free air. No significant fluid collection. Bones/joints: Degenerative changes of the spine. No acute fracture. No dislocation. Soft tissues: Unremarkable. Vasculature: Atherosclerotic changes of the aorta. No abdominal aortic aneurysm. Lymph nodes: Unremarkable. No enlarged lymph nodes. IMPRESSION: 1. RIGHT mid pole renal mass measures 4.5 x 4.1 x 4.6 cm. Differential includes renal cell carcinoma versus developing intrarenal abscess. 2. Additional low-attenuation mass in the inferior LEFT kidney measures 2.4 x 2.3 cm. This is of similar appearance to the larger right-sided mass. MRI with contrast recommended for further evaluation. Electronically signed by: Tristen Ross MD 03/04/23 23:59 PM Abdomen MRI 03/05/23 00:11 Exam(s): MRI ABDOMEN W/WO Contrast IV EXAM: MR Abdomen Without and With Intravenous Contrast CLINICAL HISTORY: Reason for exam: abd pain, abn ct. TECHNIQUE: Multiplanar magnetic resonance images of the abdomen without and with intravenous contrast. CONTRAST: Patient received of IV contrast COMPARISON: CT abdomen pelvis 03/04/2023 FINDINGS: Lung bases: Unremarkable. No mass. No consolidation. Liver: Unremarkable. No mass. Gallbladder and bile ducts: Status post cholecystectomy. No biliary dilatation. No filling defect within the common bile duct. Pancreas: Unremarkable. No ductal dilation. No mass. Spleen: Unremarkable. No splenomegaly. Adrenals: Left adrenal adenoma measuring 1.6 cm. Normal appearance of the right adrenal gland. Kidneys and ureters: Rounded masslike regions of heterogeneous enhancement within the kidneys bilaterally. On the right measuring approximately 4.6 x 4.1 cm and on the left measuring 2.6 x 2.5 cm. No hydronephrosis. Stomach and bowel: Unremarkable. No obstruction. Intraperitoneal space: Unremarkable. No significant fluid collection. Soft tissues: Unremarkable. Vasculature: Unremarkable. No abdominal aortic aneurysm. Lymph nodes: Unremarkable. No enlarged lymph nodes. IMPRESSION: 1. Rounded masslike regions of heterogeneous enhancement within the kidneys bilaterally. On the right measuring approximately 4.6 x 4.1 cm and on the left measuring 2.6 x 2.5 cm. Differential includes renal cell carcinoma and pyelonephritis. 2. Left adrenal adenoma measuring 1.6 cm. Electronically signed by: Peyman Barr MD 03/05/23 04:15 AM Medications Administered Current Inpatient Medications Acetaminophen (Acetaminophen 325 Mg Tab) 650 mg PO Q4H PRN PRN Reason: Pain or Fever Stop: 04/03/23 04:37 Albuterol (Albuterol 0.083% Nebu Soln 3 Ml Vial) 2.5 mg INH Q4H PRN; Protocol PRN Reason: Shortness Of Breath Or Wheezin Stop: 04/03/23 04:37 Albuterol (Albuterol Hfa 8 Gm Inhaler) 2 puffs INH Q4H PRN PRN Reason: COUGH/SOB/WHEEZING Stop: 04/03/23 04:37 Benzonatate (Benzonatate 100 Mg Capsule) 100 mg PO TID PRN PRN Reason: cough Stop: 04/03/23 04:37 Bisacodyl (Bisacodyl 10 Mg Supp) 10 mg [place] BID [facility] Stop: 04/03/23 08:59 Last Admin: 03/04/23 21:48 Dose: Not Given Chlorpromazine HCl (Chlorpromazine Hcl 25 Mg Tab) 25 mg PO QID PRN PRN Reason: Hiccups Stop: 04/03/23 04:37 Last Admin: 03/04/23 21:47 Dose: 25 mg Dexamethasone (Dexamethasone 4 Mg Tab) 4 mg PO Q6H AMTI Stop: 04/04/23 07:44 Famotidine (Famotidine 10 Mg Tablet) 10 mg PO BID [facility] Stop: 04/03/23 08:59 Last Admin: 03/04/23 21:47 Dose: 10 mg Fluticasone Propionate (Fluticasone Propionate Na Spr 16 Gm Btl) 2 sprays NA QAM [facility] Stop: 04/03/23 08:59 Last Admin: 03/04/23 09:17 Dose: 2 sprays Fluticasone/Vilanterol (Fluticasone/Vilanterol 200/25mcg 14 Puffs/Inhaler) 1 puffs INH DAILY MATI Stop: 04/03/23 08:59 Last Admin: 03/04/23 09:15 Dose: 1 puffs Folic Acid (Folic Acid 1 Mg Tab) 1 mg PO DAILY MATI Stop: 04/03/23 08:59 Last Admin: 03/04/23 09:20 Dose: 1 mg Hydromorphone HCl (Hydromorphone Inj 0.5 Mg/0.5 Ml Syr) 0.5 mg IV Q1H PRN PRN Reason: ssevere breakthrough pain Stop: 03/18/23 20:29 Last Admin: 03/05/23 05:49 Dose: 0.5 mg Lactated Ringer's (Lr) 1,000 mls @ 60 mls/hr IV .[id number] ONE Stop: 03/05/23 16:46 Last Admin: 03/05/23 00:27 Dose: 60 mls/hr Ceftriaxone Sodium 2,000 mg/ (Dextrose) 70 mls @ 100 mls/hr IV Q24H MATI; Protocol Stop: 03/15/23 04:59 Last Infusion: 03/05/23 05:49 Dose: Infused Lidocaine/Prilocaine (Lidocaine/Prilocaine 2.5% Ea Crm) 1 each EXT .PRIOR TO PORT ACCESS PRN PRN Reason: 1 HR PRIOR TO PORT ACCESS Stop: 04/03/23 04:37 Lorazepam (Lorazepam 0.5 Mg Tab) 0.5 mg PO TID PRN PRN Reason: Anxiety Stop: 04/03/23 04:37 Last Admin: 03/05/23 03:59 Dose: 0.5 mg Lubiprostone (Lubiprostone 8 Mcg Cap) 24 mcg PO BID MATI Stop: 04/03/23 08:59 Last Admin: 03/04/23 21:07 Dose: 24 mcg Morphine Sulfate (Morphine Sulfate Ir 15 Mg Tab (Immediate Release)) 15 mg PO Q4H PRN PRN Reason: Pain, Severe Stop: 03/18/23 20:25 Last Admin: 03/05/23 01:40 Dose: 15 mg Multi-Ingredient Mouthwash/Gargle (First - Mouthwash Blm 119 Ml) 10 ml PO ACHS MATI Stop: 04/03/23 07:29 Last Admin: 03/04/23 21:48 Dose: 10 ml Naloxone HCl (Naloxone Hcl 0.4 Mg/1 Ml Vial/Carp) 0.1 mg IV Q5M PRN; Protocol PRN Reason: Oversedation/Resp Depression Stop: 03/18/23 15:20 Nitroglycerin (Nitroglycerin Sl 0.4 Mg/Tab Tab) 0.4 mg SL Q5M PRN PRN Reason: Chest Pain Stop: 04/03/23 04:37 Ondansetron HCl (Ondansetron Inj 2 Mg/Ml 2 Ml Vial) 4 mg IV Q6H PRN PRN Reason: Nausea Stop: 04/03/23 04:37 Last Admin: 03/05/23 05:47 Dose: 4 mg Pantoprazole Sodium (Pantoprazole 40 Mg Tab) 40 mg PO BID [facility] Stop: 04/03/23 20:59 Last Admin: 03/04/23 21:01 Dose: 40 mg Phenazopyridine HCl (Phenazopyridine Hcl 100 Mg Tab) 100 mg PO TID PRN PRN Reason: Bladder pain Stop: 04/04/23 00:22 Last Admin: 03/05/23 01:39 Dose: 100 mg Polyethylene Glycol (Polyethylene (Miralax) 17 Gm Pack) 17 gm PO BID [facility] Stop: 04/03/23 08:59 Last Admin: 03/04/23 21:48 Dose: 17 gm Promethazine HCl (Promethazine Hcl 25 Mg Tab) 12.5 mg PO Q6H PRN PRN Reason: NAUSEA/VOMITING Stop: 04/03/23 04:37 Sennosides (Senna 8.6 Mg Tab) 17.2 mg PO TID MATI Stop: 04/03/23 08:59 Last Admin: 03/04/23 21:04 Dose: 17.2 mg Spironolactone (Spironolactone 100 Mg Tab) 200 mg PO BID17 [facility] Stop: 04/03/23 08:59 Last Admin: 03/04/23 17:24 Dose: 200 mg Sucralfate (Sucralfate 1 Gm/10 Ml Udc) 1 gm PO ACHS MATI Stop: 04/03/23 07:29 Last Admin: 03/04/23 21:00 Dose: 1 gm Umeclidinium [place] (Umeclidinium [place] 62.5mcg/Blister 7 Puffs/Inhaler) 1 puffs INH DAILY MATI Stop: 04/03/23 08:59 Last Admin: 03/04/23 09:15 Dose: 1 puffs
[2023-03-05] MEDS ORDERED: dexAMETHasone 4 MG TAB PO SCH (08:00)
[2023-03-05] MEDS: LUBIPROSTONE 8 MCG CAP PO SCH ×2 (08:20→20:16)
[2023-03-05] MEDS: FLUTICASONE PROPIONATE NA SPR 16 GM BTL SCH (08:23)
[2023-03-05] MEDS: FLUTICASONE/VILANTEROL 200/25MCG 14 PUFFS/INHALER INH SCH (08:24)
[2023-03-05] MEDS: UMECLIDINIUM BROMIDE 62.5MCG/BLISTER 7 PUFFS/INHALER INH SCH (08:24)
[2023-03-05] MEDS: SUCRALFATE 1 GM/10 ML UDC PO SCH ×4 (08:27→20:15)
[2023-03-05] MEDS: FAMOTIDINE 10 MG TABLET PO SCH ×2 (08:27→20:14)
[2023-03-05] MEDS: FOLIC ACID 1 MG TAB PO SCH (08:27)
[2023-03-05] MEDS: SPIRONOLACTONE 100 MG TAB PO SCH ×2 (08:27→16:39)
[2023-03-05] MEDS: PANTOprazole 40 MG TAB PO SCH ×2 (08:27→20:15)
[2023-03-05] MEDS: SENNA 8.6 MG TAB PO SCH ×3 (08:27→20:15)
[2023-03-05] MEDS: bisacodyL 10 MG SUPP PR SCH ×2 (08:28→20:11)
[2023-03-05] MEDS: FIRST - Mouthwash BLM 119 ML PO SCH ×4 (08:28→20:16)
[2023-03-05] MEDS: POLYETHYLENE (MIRALAX) 17 GM PACK PO SCH ×2 (08:28→20:13)
[2023-03-05] MEDS ORDERED: DEXAMETHASONE SOD INJ 4 MG/ML VIAL IV STA (09:00)
[2023-03-05] MEDS ORDERED: dexAMETHasone 4 MG in SYRINGE 0 ML IV STA (09:08)
--- NOTE | 2023-03-05 09:49 | Radiation Oncology Progress Nt ---
Date of Service March 05, 2023 Assessment & Plan (1) Metastasis to brain: Plan: Patient is seen today in follow-up. She has now been moved from the emergency room to third floor. She is sitting comfortably in bed. She took diligent notes throughout our conversation. She states that her headache continues at 8- 9 of 10. She is receiving pain medication through the hospitalist. She continues on the dexamethasone. We reviewed the MRI of the brain. This has shown 5 lesions. I reviewed the results on the report. I also showed her the images of the MRI. The MRI has been reviewed by Dr. Charlton. Is felt that she can have stereotactic treatment. This will be in 3 fractions. I discussed with her yesterday the process of treatment. A mask will be made. She is claustrophobic. She will therefore require lorazepam prior to her CT simulation as well as her treatments. We are planning to bring her to our office for the CT simulation tomorrow morning. All of her questions were answered to the best of my ability. She will be seen today by Dr. Charlton. See his additional note. She has concerns about her end of treatment summary. She stated that on the document it states that she refused her final treatments. She stated that these were stopped due to side effects. The documents will be reviewed and corrected. Plan ATTENDING ADDENDUM: Assessment: Ms. 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 The patient was previously treated with chemotherapy and radiation therapy. The patient received a partial course of radiation therapy and stopped treatment due to intolerance to side effects including radiation esophagitis (5800 cGy, 29 fractions, 01/16/2023). Following completion of chemotherapy and radiation therapy, the patient did have progression of disease. The patient was recently found to have metastatic disease involving the brain. The patient was referred to radiation oncology however she missed 2 appointments in our department. The patient has sought out a second opinion consultation at [facility] to confirm systemic therapy treatment options. The patient is currently receiving carboplatin/Keytruda/Alimta underneath the supervision of Dr. Joaquín Charlton. The patient presented to the emergency room yesterday with complaints of headaches and confusions. The patient was admitted to the hospital and did undergo an MRI of the brain which does reveal 5 metastatic lesions in the brain. Recommendation: Fractionated stereotactic radiosurgery. 3 - 5 fractions. Plan: 1. CT simulation for treatment planning for radiation therapy. IV contrast. To be completed in the inpatient setting to expedite treatment planning. Plan for radiation therapy in the outpatient setting. 2. Continue patient on dexamethasone. Plan to taper after completion of radiation therapy. 3. Continue all the care as per primary medical team. 4. Follow-up with medical oncology in the outpatient setting. 5. Patient and family encouraged to call us with any further questions or concerns. Rationale/explanation of treatment: I explained the indications, alternatives, benefits, risks and side effects of external beam radiation therapy. I explain the most common side effects including but not limited to skin erythema, skin break down, hair loss, radiation necrosis, fatigue, short-term memory loss, decreased neurocognitive performance, cerebral edema, hearing loss, damage to cochlea structures, seizures, loss of sensory and or motor function. I explained the treatment planning process and what to expect before during and after treatment. I have explained to the patient that there is an increased risk of overlap from the previous course of radiation therapy and the current course of radiation therapy which can increase the risk of all acute and late side effects of radiation therapy. The patient and family had multiple questions which were answered to their full satisfaction. Thank you for allowing us to participate in the care of this patient. This chart was completed in part utilizing [employer] Voice Recognition software. Attempts were made to minimize the grammatical errors, random word insertions, pronoun errors and incomplete sentences. Any formal questions or concerns about the content, text or information contained within the body of this dictation should be directly addressed to the provider for clarification. Admission and Anticipated Discharge Date Admission Date: March 04, 2023 Supervising Physician Co-Signing Physician Notes I spent 25 minutes counseling the patient and her family and answering all of their questions. Radiation History DIAGNOSIS: 09/2022. Lung, right upper lobe. Adenocarcinoma. Stage [id number]. Stage IIIA. 01/2023. Brain metastasis. TREATMENT: 01/16/2023. Patient stopped radiation therapy. She completed 29 of 33 fractions of radiation therapy. She received 5800 cGy. Concurrent weekly chemotherapy. Chemotherapy comprised of Taxol and carboplatin. 02/19/2023. Initiation of treatment with carboplatin, Keytruda and Alimta. Results & Data Vital Signs (Past 12 Hours) Vital Signs Temp Pulse Resp BP Pulse Ox O2 Del Method 03/05/23 07:31 36.5 C 86 16 109/69 99 Room Air 03/04/23 23:30 Room Air PG Care Time/CCT Total # of Minutes Spent Total Time Spent with Patient: I spent [15] minutes in preparation for this follow up evaluation including reviewing all the clinical records, reviewing laboratory studies, pathology reports and imaging results. I spent [20] minutes with direct face to face interaction with the patient and/or family including performing a physical exam and answering all questions. I spent [5] minutes documenting this patient's visit. Coding Level of Care Code 30442 SUB INP/OBS CARE 3/50MIN Diagnoses Metastasis to brain C79.31
[2023-03-05] MEDS ORDERED: diphenhydrAMINE Capsule 25 MG CAP PO PRN (11:14)
[2023-03-05] MEDS: dexAMETHasone 10 MG in SYRINGE 0 ML IV SCH ×3 (12:14→22:44)
[2023-03-05] MEDS ORDERED: METHYLNALTREXONE BROMIDE 12 MG/0.6 ML VIAL SQ SCH (12:30)
[2023-03-05] MEDS: EUCERIN CR 120 GM JAR EXT SCH ×2 (13:19→20:17)
--- NOTE | 2023-03-05 13:22 | Pain Management Consultation ---
Date of Consultation March 05, 2023 Assessment & Plan (1) Metastasis to brain: (2) Therapeutic opioid induced constipation: (3) Primary adenocarcinoma of upper lobe of right lung: (4) Chronic low back pain: Plan 1. Due to her suspected opioid-induced constipation will initiate Relistor on this admission 2. Would recommend she continue with the Amitiza in the outpatient setting over the next few weeks to assess efficacy. Otherwise could consider a trial of Movantik for ongoing opioid-induced constipation. 3. Patient reporting moderate efficacy from use of MS IR 15 mg 2 tablets every 6 hours for as needed breakthrough pain. We did briefly discuss alternative treatment options, but she prefers to further discuss with palliative care who have been prescribing her opiates in the outpatient setting. This is reasonable at this time as she does not appear to be having significant breakthrough pain upon today's examination and is planned for palliative radiation which should hopefully diminish her need for opiate therapy moving forward. 4. Patient is a poor candidate for interventional treatment at this time 5. Pain service will sign off on patient at this time. Please contact us for reevaluation as needed. Thank you for allowing us to participate in the care of Mrs. Gutierrez. History of Present Illness Reason for Consultation: Headache and axial low back pain Requesting Physician: Shweta Godinez DO Attending Physician: Shweta Godinez DO History of Present Illness Mrs. Gutierrez is a 42-year-old white female with known metastatic lung cancer to kidney and bony metastasis with recent worsening confusion and headache which led to discovery of metastatic disease affecting the brain with a leftward midline shift. She is status post radiation treatment for the chest in December and is currently getting chemotherapy status post cycle #4. Patient has been found to be neutropenic and afebrile. She has been initiated on IV Decadron which has lessened her headache and improved her mentation. She was evaluated by radiation oncology who was planning to initiate radiation to the brain tomorrow. She is on Eliquis therapy which is recently been held given her metastatic disease and low platelets. She describes her headache as a pressure or a tightening sensation as if she has a "hat on that is too tight". She reports some throbbing and some sharp/stabbing characteristic pains affecting the head. She also has some chronic axial low back pain which can travel across the hips bilaterally slightly left greater than right-sided. She denies a true radicular pattern to her pain complaints. Patient rates her pain a 4-8/10. Patient reports use of MS IR in the outpatient setting which was providing some relief of her pain when she was taking 2-15 mg tablets. Patient is having ongoing difficulties with constipation. She reports use of multiple medications in an attempt to diminish her constipation with minimal relief such as [id number]-dazkizg MiraLAX, Senokot and Dulcolax. She was recently initiated on Amitiza over the past few days. She is unaware of obvious benefit from this medication. She has used Relistor from prior admission with relief of her constipation. Patient has no further constitution complaints. Plan of care discussed with Dr. Dulce Maria Funez. Pain Assessment Full Body Front + Back: 1. Axial lumbosacral pain 2. Pressure headache Pain scale - at its best (0-10): 4 Pain scale - at its worst (0-10): 8 Allergies Allergy/AdvReac Type Severity Reaction Status Date / Time levofloxacin [From Levaquin] Allergy Severe THROAT Verified 03/04/23 01:31 SWELLS SHUT, ITCHY--RASH PER GM[facility] Penicillins Allergy Severe Anaphylaxis Verified 03/04/23 01:31 clindamycin Allergy Intermediate CAUSED A Verified 03/04/23 01:31 YEAST INFECTION X 6 MONTHS povidone-iodine Allergy Intermediate Rash Verified 03/04/23 01:31 [From Betadine] silver Allergy Intermediate Rash Verified 03/04/23 01:31 [From Tegaderm AG Mesh] bupropion [From Wellbutrin] AdvReac Severe suicidal Verified 03/04/23 01:31 ideation duloxetine AdvReac Severe suicidal Verified 03/04/23 01:31 ideations sulfamethoxazole AdvReac Mild YEAST Verified 03/04/23 01:31 [From Bactrim] INFECTION trimethoprim [From Bactrim] AdvReac Mild YEAST Verified 03/04/23 01:31 INFECTION ANESTHESIA AdvReac Severe PER Uncoded 03/04/23 01:31 GMG--PSEUDOCHLOINESTERASE---FLAT LINES PLASTIC AdvReac Severe SKIN PEELS Uncoded 03/04/23 01:31 Home Medications Medication Instructions Recorded Confirmed Type spironolactone 100 mg tablet 200 mg PO BID 09/24/19 03/04/23 History (Aldactone) albuterol sulfate 90 mcg/actuation 2 puff inhalation Q4H PRN 09/21/22 03/04/23 History aerosol inhaler (Ventolin HFA) COUGH/SOB/WHEEZING fluticasone propionate 230 2 inh inhalation BID 10/24/22 03/04/23 History mcg-salmeterol 21 mcg/actuation HFA inhaler (Advair HFA) lorazepam 0.5 mg tablet 0.5 mg PO TID PRN Anxiety 10/24/22 03/04/23 History Magic Mouthwash 300 mL mouthwash 10 ml mucous membrane ACHS #300 mL 12/04/22 03/04/23 Rx famotidine 10 mg tablet (Acid 10 mg PO BID #60 tabs 12/10/22 03/04/23 Rx Information And Referral Director (famotidine)) benzonatate 100 mg capsule 100 mg PO TID PRN cough #60 caps 12/22/22 03/04/23 Rx chlorpromazine 25 mg tablet 25 mg PO QID PRN Hiccups 12/31/22 03/04/23 History ondansetron HCl 8 mg tablet 8 mg PO Q8H PRN Other 01/06/23 03/04/23 History morphine 15 mg immediate release 15 mg PO Q4H PRN Pain, Severe 01/13/23 03/04/23 History tablet pantoprazole 40 mg tablet,delayed 40 mg PO QAM #90 tabs 01/21/23 03/04/23 Rx release polyethylene glycol 3350 17 gram 17 g PO BID 02/06/23 03/04/23 History oral powder packet (Miralax) apixaban 5 mg tablet (Eliquis) 5 mg PO BID 02/07/23 03/04/23 History fluticasone propionate 50 2 spray intranasal QAM 02/07/23 03/04/23 History mcg/actuation nasal spray,suspension folic acid 1 mg tablet 1 mg PO DAILY 02/07/23 03/04/23 History lubiprostone 24 mcg capsule 24 mcg PO BID 02/07/23 03/04/23 History albuterol sulfate 2.5 mg/3 mL 2.5 mg inhalation DIRECTED PRN 03/04/23 03/04/23 History (0.083 %) solution for nebulization Shortness Of Breath Or Wheezing bisacodyl 10 mg rectal suppository 10 mg MA BID 03/04/23 03/04/23 History dexamethasone 4 mg tablet 4 mg PO DIRECTED 03/04/23 03/04/23 History dexamethasone 4 mg tablet 8 mg PO DIRECTED 03/04/23 03/04/23 History enoxaparin 100 mg/mL subcutaneous 100 mg subcut BID 03/04/23 03/04/23 History syringe lidocaine-prilocaine 2.5 %-2.5 % 1 applic topical DIRECTED PRN 1 03/04/23 03/04/23 History topical cream HR PRIOR TO PORT ACCESS meloxicam 15 mg tablet 15 mg PO DAILY 03/04/23 03/04/23 History phenazopyridine 200 mg tablet 200 mg PO TID PRN Pain 03/04/23 03/04/23 History prochlorperazine maleate 10 mg 10 mg PO Q6H PRN NAUSEA/VOMITING 03/04/23 03/04/23 History tablet (Compazine) promethazine 25 mg tablet 12.5 mg PO Q6H PRN NAUSEA/VOMITING 03/04/23 03/04/23 History sennosides 8.6 mg tablet 17.2 mg PO TID 03/04/23 03/04/23 History sucralfate 100 mg/mL oral 10 ml PO QID 03/04/23 03/04/23 History suspension (Carafate) umeclidinium 62.5 mcg/actuation 1 inh inhalation DAILY 03/04/23 03/04/23 History blister powder for inhalation (Incruse Ellipta) varenicline 0.5 mg (11)-1 mg (42) 1 ea PO DIRECTED 03/04/23 03/04/23 History tablets in a dose pack (Chantix Starting Month Box) Pain History Pain Intensity Pain scale - at its best (0-10): 4 Pain scale - at its worst (0-10): 8 Patient History Medical History (Updated 03/05/23 @ 15:56 by Javy Persaud PA-C) ADHD Asthma Chronic cough Chronic low back pain Encounter for pre-operative examination Endometriosis of the uterus, unspecified Primary adenocarcinoma of upper lobe of right lung (10/03/22) Pseudocholinesterase deficiency Systemic lupus erythematosus Tobacco abuse Surgical History H/O right wrist surgery H/O tubal ligation H/O: hysterectomy History of cholecystectomy Hx of appendectomy S/P bronchoscopy Family History Mother Cancer Breast Grandmother (Maternal) Cancer Lung Social History Smoking Status: Current every day smoker Tobacco Type: Cigarettes Cigarettes Per Day: 1/2 pack daily; Second Hand Exposure: Yes; Do You Dip or Chew Tobacco: No; Hx Alcohol Use: No Hx Substance Use: No Preferred Language: Belarusian Communication Ability: Effective Visual Impairment: No Limitations Hearing Ability: Normal Food Safety Manager Required: No Beliefs That Will Affect Care: None marital status: Single Current Living Situation: Alone Current Living Situation Comment: engaged current occupational status: unemployed 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 5 family members in room. Speech and thought process appropriate. Mood and affect appropriate. Cognition intact. Patient obese and physically deconditioned. Head: Normocephalic and atraumatic. No focal tenderness to direct palpation over the greater or lesser occipital nerve bilaterally. ENT: No evidence of nasal or oral mucosal lesions. Mucous membranes are moist. Eyes: Pupils equal round reactive to light. Neck: Supple without adenopathy and full range of motion. Minimally tender in the cervical paravertebral musculature. No appreciable spasm or minor trigger point. Spurling's maneuver negative bilaterally. Abdomen: Soft and nondistended. No organomegaly. Bowel sounds active. Back/spine: Generalized tenderness over the lumbosacral region which is nonfocal to the midline, facet joint or SI joint. No appreciable spasm or myoneural trigger point. No limitation with flexion extension maneuvering in the sitting position. Lower extremities: SLR negative bilaterally. Strength testing 5/5 and equal. Sensation intact without deficit. No appreciable edema. Neurologic: Cranial nerves grossly intact. Ambulatory function not witnessed. Results (Pain Clinic) Diagnostic Review MRI Findings: [facility], [place] [phone] Magnetic Resonance Report Patient:FANNIE GUTIERREZ Admit Date:03/04/23 MR#:[id number] Address1:[address] [place] [address] [address]ND FLOOR Acct ID:[id number] Address2: Date:1980 [facility] Zip:[place] [address] Age:42 Location:3E Sex:F Room/Bed:[facility] Att Phy:Shweta Godinez DO Diagnosis:BRAIN METS, HEADACHE Vesta Phy:Josue Blake MD Service Date:03/05/23 Fam Phy: Interpreting Phy:Peyman Barr MDAdmit Phy:Gautam Avila MD Ordering Phy:Ervin Daugherty MD cc: ~ Exam(s): MRI ABDOMEN W/WO Contrast IV EXAM: MR Abdomen Without and With Intravenous Contrast CLINICAL HISTORY: Reason for exam: abd pain, abn ct. TECHNIQUE: Multiplanar magnetic resonance images of the abdomen without and with intravenous contrast. CONTRAST: Patient received of IV contrast COMPARISON: CT abdomen pelvis 03/04/2023 FINDINGS: Lung bases: Unremarkable. No mass. No consolidation. Liver: Unremarkable. No mass. Gallbladder and bile ducts: Status post cholecystectomy. No biliary dilatation. No filling defect within the common bile duct. Pancreas: Unremarkable. No ductal dilation. No mass. Spleen: Unremarkable. No splenomegaly. Adrenals: Left adrenal adenoma measuring 1.6 cm. Normal appearance of the right adrenal gland. Kidneys and ureters: Rounded masslike regions of heterogeneous enhancement within the kidneys bilaterally. On the right measuring approximately 4.6 x 4.1 cm and on the left measuring 2.6 x 2.5 cm. No hydronephrosis. Stomach and bowel: Unremarkable. No obstruction. Intraperitoneal space: Unremarkable. No significant fluid collection. Soft tissues: Unremarkable. Vasculature: Unremarkable. No abdominal aortic aneurysm. Lymph nodes: Unremarkable. No enlarged lymph nodes. IMPRESSION: 1. Rounded masslike regions of heterogeneous enhancement within the kidneys bilaterally. On the right measuring approximately 4.6 x 4.1 cm and on the left measuring 2.6 x 2.5 cm. Differential includes renal cell carcinoma and pyelonephritis. 2. Left adrenal adenoma measuring 1.6 cm. Electronically signed by: Peyman Barr MD 03/05/23 04:15 AM Dictated:03/05/23414 Transcribed: 03/05/23414 Allergy/Adv: levofloxacin, Penicillins, clindamycin, povidone-iodine, silver, bupropion, duloxetine, sulfamethoxazole, trimethoprim, [ANESTHESIA], [PLASTIC] (More) Close Abdomen MRI (Signed) MomoPeyman - 03/05/23 Abdomen/Pelvis CT (Signed) Tristen Ross - 03/04/23 Brain MRI (Signed) Kofi Tafoya - 03/04/[address] (Signed) Arnaud Burrell - 03/03/23 Chest X-Ray (Signed) Gamaliel Mahan - 03/03/23 Abdomen/Pelvis CT (Signed) Lei Edge - 02/06/[address] (Signed) Darren Esteban - 01/27/23 Renal Biopsy Ultrasound (Cancelled) 01/27/23 Abdomen Ultrasound (Signed) Darren Esteban - 01/27/[address] (Signed) Dewey Reza - 01/20/[address] (Signed) Miguelangel Jaramillo (+) - 01/18/23 Chest X-Ray (Signed) Dewey Reza - 01/18/23 Chest CTA (Signed) Lei Edge - 01/05/23 Chest X-Ray (Signed) Darren Esteban - 01/05/23 Chest X-Ray (Signed) Gamaliel Mahan - 01/03/23 Chest CTA (Signed) Kofi Tafoya - 12/31/22 Chest X-Ray (Signed) Kofi Tafoya - 12/31/22 Chest X-Ray 12/23/[address] 10/31/22 Chest CTA (Signed) John Posey - 10/24/22 Chest X-Ray (Signed) Dewey Reza - 10/24/22 X-Ray 09/29/22 X-Ray 09/29/22 CT Scan 09/19/22 Ultrasound 07/22/21 Chest CTA (Signed) Wayne Nunez - 09/24/19 Chest X-Ray (Signed) Wayne Nunez - 09/24/19 Chest X-Ray (Signed) Wayne Nunez - 09/24/19 [facility] [place] [phone] CT Scan Report Patient:FANNIE GUTIERREZ Admit Date:03/04/23 MR#:[id number] Address1:[address] [place] [address] [address]ND FLOOR Acct ID:[id number] Address2: Date:1980 [facility] Zip:[place] [address] Age:42 Location: Sex:F Room/Bed:[facility] Att Phy:Shweta Godinez DO Diagnosis:BRAIN METS, HEADACHE Vesta Phy:Josue Blake MD Service Date:03/04/23 Fam Phy: Interpreting Phy:Tristen Ross MDAdmit Phy:Gautam Avila MD Ordering Phy:Ervin Daugherty MD cc: ~ Exam(s): CT ABDOMEN + PELVIS With Contrast IV Amt: 91 ml opti 320 EXAM: CT Abdomen and Pelvis With Intravenous Contrast CLINICAL HISTORY: Reason for exam: worsening abd pain. TECHNIQUE: Axial computed tomography images of the abdomen and pelvis with intravenous contrast. CTDI is 27 mGy and DLP is 1428 mGy-cm. Automated exposure control was utilized for the study. A dose lowering technique was utilized adhering to the principles of ALARA. CONTRAST: Patient received 91 ml opti 320 of IV contrast COMPARISON: No relevant prior studies available. FINDINGS: Lung bases: Unremarkable. No mass. No consolidation. ABDOMEN: Liver: Unremarkable. No mass. Gallbladder and bile ducts: Unremarkable. No calcified stones. No ductal dilation. Pancreas: Unremarkable. No mass. No ductal dilation. Spleen: Unremarkable. No splenomegaly. Adrenals: Unremarkable. No mass. Kidneys and ureters: RIGHT mid pole renal mass measures 4.5 x 4.1 x 4. 6 cm. Differential includes renal cell carcinoma versus developing intrarenal abscess. Additional low-attenuation mass in the inferior LEFT kidney measures 2.4 x 2.3 cm. This is of similar appearance to the larger right-sided mass. Stomach and bowel: Diverticulosis, without acute diverticulitis. No small bowel obstruction. No free intraperitoneal air. PELVIS: Appendix: No findings to suggest acute appendicitis. Bladder: Unremarkable. No mass. Reproductive: Hysterectomy. ABDOMEN and PELVIS: Intraperitoneal space: Unremarkable. No free air. No significant fluid collection. Bones/joints: Degenerative changes of the spine. No acute fracture. No dislocation. Soft tissues: Unremarkable. Vasculature: Atherosclerotic changes of the aorta. No abdominal aortic aneurysm. Lymph nodes: Unremarkable. No enlarged lymph nodes. IMPRESSION: 1. RIGHT mid pole renal mass measures 4.5 x 4.1 x 4.6 cm. Differential includes renal cell carcinoma versus developing intrarenal abscess. 2. Additional low-attenuation mass in the inferior LEFT kidney measures 2.4 x 2.3 cm. This is of similar appearance to the larger right-sided mass. MRI with contrast recommended for further evaluation. Electronically signed by: Tristen Ross MD 03/04/23 23:59 PM Dictated:03/04/232358 Transcribed: 03/04/232358 Allergy/Adv: levofloxacin, Penicillins, clindamycin, povidone-iodine, silver, bupropion, duloxetine, sulfamethoxazole, trimethoprim, [ANESTHESIA], [PLASTIC] (More) Close Abdomen MRI (Signed) Peyman Barr - 03/05/23 Abdomen/Pelvis CT (Signed) Tristen Ross - 03/04/23 Brain MRI (Signed) Kofi Tafoya - 03/04/[address] (Signed) Arnaud Burrell - 03/03/23 Chest X-Ray (Signed) Gamaliel Mahan - 03/03/23 Abdomen/Pelvis CT (Signed) Lei Edge - 02/06/[address] (Signed) Darren Esteban - 01/27/23 Renal Biopsy Ultrasound (Cancelled) 01/27/23 Abdomen Ultrasound (Signed) Darren Esteban - 01/27/[address] (Signed) Dewey Reza - 01/20/[address] (Signed) Miguelangel Jaramillo (+) - 01/18/23 Chest X-Ray (Signed) Dewey Reza - 01/18/23 Chest CTA (Signed) Lei Edge - 01/05/23 Chest X-Ray (Signed) Darren Esteban - 01/05/23 Chest X-Ray (Signed) Gamaliel Mahan - 01/03/23 Chest CTA (Signed) Kofi Tafoya - 12/31/22 Chest X-Ray (Signed) Kofi Tafoya - 12/31/22 Chest X-Ray 12/23/[address] 10/31/22 Chest CTA (Signed) John Posey - 10/24/22 Chest X-Ray (Signed) Dewey Reza - 10/24/22 X-Ray 09/29/22 X-Ray 09/29/22 CT Scan 09/19/22 Ultrasound 07/22/21 Chest CTA (Signed) Wayne Nunez - 09/24/19 Chest X-Ray (Signed) Wayne Nunez - 09/24/19 Chest X-Ray (Signed) Wayne Nunez - 09/24/19 [employer] [place], [place] [phone] Magnetic Resonance Report Patient:FANNIE GUTIERREZ Admit Date:03/04/23 MR#:[id number] Address1:[address] [place] [address] [address]ND FLOOR Acct ID:[id number] Address2: Date:1980 [facility] Zip:[place] [address] Age:42 Location:[facility] Sex:F Room/Bed:[facility] 1-12 Att Phy:Shweta Godinez DO Diagnosis:BRAIN METS, HEADACHE Vesta Phy:Josue Blake MD Service Date:03/04/23 Fam Phy: Interpreting Phy:Kofi Tafoya MDAdmit Phy:Gautam Avila MD Ordering Phy:Gautam Avila MD cc: ~ Brain MRI WITH AND WITHOUT CONTRAST HISTORY: Evaluate intracranial metastatic disease. TECHNIQUE: Multiplanar multisequence MRI of the brain was performed both before and after the intravenous administration of contrast. COMPARISON STUDY: Head CT 03/04/2023. Outside hospital brain MRI 10/20/2022. FINDINGS: No areas of restricted diffusion to suggest acute infarction. Small retention cyst within the left maxillary sinus. The orbits are unremarkable. The mastoid air cells are clear. The major vascular flow-voids at the skull base are well-maintained. There is up to 4 mm of left midline shift. No intracranial hemorrhage identified. This is secondary to the 7 cm area of vasogenic edema involving the right temporal/parietal lobes. Additional smaller areas of vasogenic edema within the bilateral occipital lobes, left frontal lobe near the high convexity, and right cerebellar hemisphere. Postcontrast sequences confirm the presence of underlying enhancing cystic lesions at these locations of vasogenic edema. Dominant lesion within the right temporal lobe measures 13 mm. These are consistent with metastatic disease. IMPRESSION: A total of 5 enhancing lesions within the brain with the dominant lesion within the right temporal lobe measuring 13 mm consistent with intracranial metastatic disease. There is associated vasogenic edema at these locations most pronounced at the right temporal lobe lesion resulting in 4 mm of left midline shift. ACT 112: Negative or not required by law. Electronically signed by: Kofi Tafoya M.D. 03/04/2023 2:21 PM Dictated:03/04/23 141 Transcribed: 03/04/231411 CT Findings: FANNIE GUTIERREZ [id number] Allergy/Adv: levofloxacin, Penicillins, clindamycin, povidone-iodine, silver, bupropion, duloxetine, sulfamethoxazole, trimethoprim, [ANESTHESIA], [PLASTIC] (More) Close Abdomen MRI (Signed) Peyman Barr - 03/05/23 Abdomen/Pelvis CT (Signed) Tristen Ross - 03/04/23 Brain MRI (Signed) Kofi Tafoya - 03/04/[address] (Signed) Arnaud Burrell - 03/03/23 Chest X-Ray (Signed) Gamaliel Mahan - 03/03/23 Abdomen/Pelvis CT (Signed) Lei Edge - 02/06/[address] (Signed) Darren Esteban - 01/27/23 Renal Biopsy Ultrasound (Cancelled) 01/27/23 Abdomen Ultrasound (Signed) Darren Esteban - 01/27/[address] (Signed) Dewey Reza - 01/20/[address] (Signed) Miguelangel Jaramillo (+) - 01/18/23 Chest X-Ray (Signed) Dewey Reza - 01/18/23 Chest CTA (Signed) Lei Edge - 01/05/23 Chest X-Ray (Signed) Darren Esteban - 01/05/23 Chest X-Ray (Signed) Gamaliel Mahan - 01/03/23 Chest CTA (Signed) Kofi Tafoya - 12/31/22 Chest X-Ray (Signed) Kofi Tafoya - 12/31/22 Chest X-Ray 12/23/[address] 10/31/22 Chest CTA (Signed) John Posey - 10/24/22 Chest X-Ray (Signed) Dewey Reza - 10/24/22 X-Ray 09/29/22 X-Ray 09/29/22 CT Scan 09/19/22 Ultrasound 07/22/21 Chest CTA (Signed) Wayne Nunez - 09/24/19 Chest X-Ray (Signed) Mayra,Wayne - 09/24/19 Chest X-Ray (Signed) Mayra,Wayne - 09/24/19 [facility] [place] [phone] CT Scan Report Patient:FANNIE GUTIERREZ Admit Date:03/03/23 MR#:[id number] Address1:[address] [place] [address] [address] FLO[address] Acct ID:[id number] Address2: Date:1980 [facility] Zip:[place] [address] Age:42 Location:ED Sex:F Room/Bed: Att Phy: Diagnosis:SLURRED SPEACH, LOSS OF BALNCE Vesta Phy:Josue Blake MD Service Date:03/03/23 [facility] Phy: Interpreting Phy:Arnaud Burrell MDAdmit Phy: Ordering Phy:Sneha Roper M.D. cc: ~ Exam(s): CT HEAD Without Contrast EXAM: CT Head Without Intravenous Contrast CLINICAL HISTORY: Reason for exam: Neuro deficit, acute, stroke suspected. reports severe headache that started when she woke up and reports she's having TIA sypmptoms woke up at 0630 in normal health, as per patient holding her head in triage and is slow to respond states he got home from work and he couldn't understand her words and she was confused states lights and sounds are bothering her also reports she has metastatic cancer (to include the brain) TECHNIQUE: Axial computed tomography images of the head/brain without intravenous contrast. CTDI is 37.32 mGy and DLP is 625.8 mGy-cm. Automated exposure control was utilized for the study. A dose lowering technique was utilized adhering to the principles of ALARA. COMPARISON: MRI brain dated 10/20/2022, outside hospital study. Report not available FINDINGS: Brain: Approximately 6 cm area of white matter hypoattenuation/vasogenic edema in the right parietotemporal lobes. New since the prior MRI. Associated regional mass-effect with effacement of sulci, mild compression of the right lateral ventricle, and 6 mm leftward midline shift. New mild white matter hypoattenuation/vasogenic edema in bilateral occipital lobes and possibly right cerebellum. Basilar cisterns are patent. No intracranial hemorrhage. Ventricles: Unremarkable. No ventriculomegaly. Bones/joints: Unfused posterior C1 arch, partially visualized, variant anatomy. No acute fracture. Soft tissues: Unremarkable. Sinuses: Unremarkable as visualized. No acute sinusitis. Mastoid air cells: Unremarkable as visualized. No mastoid effusion. IMPRESSION: 1. Approximately 6 cm area of white matter hypoattenuation/vasogenic edema in the right parietotemporal lobes. New since the prior MRI. Associated regional mass-effect and 6 mm leftward midline shift. 2. New mild white matter hypoattenuation/vasogenic edema in bilateral occipital lobes and possibly right cerebellum. 3. Given history, above findings are worrisome for underlying metastatic lesions. Recommend MRI without and with contrast to further evaluate. Communications: 03/04/23 01:19 Call Doctor Regarding Above results, called Dr. Roper on 03/04 01:19 (-04:00) Electronically signed by: Arnaud Burrell M.D. 03/04/23 01:25 AM Dictated:03/04/23124 Transcribed: 03/04/23124
[2023-03-05] MEDS: chlorproMAZINE HCL 25 MG TAB PO PRN ×2 (14:22→18:42)
[2023-03-05] MEDS ORDERED: dexAMETHasone**PF** 10 MG/ML VIAL IV SCH (16:00)
--- NOTE | 2023-03-05 18:03 | Electrocardiogram Report ---
Test Reason : Blood Pressure : / mmHG Vent. Rate : 112 BPM Atrial Rate : 112 BPM P-R Int : 132 ms QRS Dur : 082 ms QT Int : 356 ms P-R-T Axes : 048 014 027 degrees QTc Int : 485 ms Sinus tachycardia Nonspecific ST abnormality Abnormal ECG When compared with ECG of 18-JAN-2023 15:36, Premature ventricular complexes are no longer Present Confirmed by Stephen Hudson ([id number]) on 03/05/2023 6:03:18 PM Referred By: REFERRED SELF Confirmed By:Christiano Hudson
[2023-03-05] MEDS: BUTALBITAL/ACETAMIN/CAFFEINE TAB PO PRN (22:44)
[2023-03-06] MEDS: HYDROmorphone INJ 0.5 MG/0.5 ML SYR IV PRN ×5 (01:02→10:10)
--- NOTE | 2023-03-06 06:11 | Consultation ---
Date of Consultation March 06, 2023 Assessment & Plan (1) Metastasis to brain: Immediate management focuses on pancytopenia and I would defer to radiation oncology for optimal coordination of her steroid dosing. Anticipate SBRT in 3 fractions probably spread over 5 to 7 days. Chemotherapy will remain on hold until that is (2) Primary adenocarcinoma of upper lobe of right lung: Initially presenting 5 months ago with respiratory difficulty, 4.4 cm right upper lung mass and mediastinal node involvement with what looked initially like stage IIIA disease. As she completed chemoradiation with carboplatinum/Taxol immediate posttreatment imaging unfortunately showed the evolution of renal lesions which were biopsy positive for metastatic lung adenocarcinoma and she is now ultimately developed INSIDE FINISHER metastases and probable bone metastases as well. Core treatment plan of salvage with pemetrexed/carboplatinum/pembrolizumab has been affirmed by a second opinion at [facility] and she has received an initial dose. Presume that she has had appropriate NGS studies to rule out options with targeted therapy but I will seek those records for further confirmation and particularly with respect to the level of PDL1 activity as that could have implications with regards to the potential efficacy of ICI We also need to consider whether alternative agents with INSIDE FINISHER penetration (etoposide/cisplatin, temozolomide) would be considerations as a cytotoxic basis if she is not showing good response to the pemetrexed based regimen. We have spoken at length about the challenging prognosis she faces with rapidly [place] resistant disease (albeit with only the low-dose weekly carboplatinum she was receiving as part of her chemoradiation), widespread involvement including INSIDE FINISHER disease. She is very concerned at her young age and with young children to well understand her prognosis. We discussed that there is a spectrum of survival that will be better discussed once we see whether or not she has good or less than good response to the current salvage regimen but that unfortunately among the possibilities is shorter survival given the aggression of her disease. I believe that she already understood this at some basic level but wanted more specific confirmation. She has been engaged with palliative care through the [employer] system and mentioned certainly continue. She is concerned that her pelvic care provider may be going out on maternity leave but I have assured her that there are other resources available. She is strongly considering whether a fresh team of medical oncology support would be worthwhile. I have encouraged her to continue with her current mo mentum of completing the immediate treatment for INSIDE FINISHER metastases and then proceeding with the already next scheduled dose of salvage chemo/immunotherapy so that the pace of her care can continue as is particularly to allow for a very important personal trip to [place] with her daughter that is planned for the second half of this month. I offered that we are delighted to help her transition care in time if that continues to be appropriate. (3) Pulmonary embolism: Apparent history of pulmonary embolism, she was on anticoagulants but those have been suspended because of her INSIDE FINISHER metastases. Need to better understand that history so that we can make recommendations for alternative approaches such as IVC filter (4) Systemic lupus erythematosus: Has a history of SLE and with that she will be at some risk for ICI related toxicity. She clearly recognizes that but feels it is imperative to give the strongest treatment possible. Confirmation of PTL1 levels may be helpful in determining how aggressively we need to continue to include ICI in her overall management (5) Pancytopenia: Likely reflects a combination of pre-existing stem cell damage from her initial chemoradiation exacerbated by the recent resumption of cytotoxic chemotherapy. Should do an anemia work-up with retakes, smear review, and nutritional studies and I have entered those orders to make sure that there are not other elements of her pancytopenia that can be addressed. Do note a very small population of myelocytes which probably simply reflects a recovering marrow rather than immediately suggesting primary hematology malignancy Plan 1. We will seek records from her primary care team at [facility] particularly to confirm the performance of NGS studies on her original pathology and as well to understand some of the more specific history of her pulmonary embolus to guide us in the potential additional need for further prophylactic measures such as IVC filter 2. For now would continue with the plan as outlined by radiation oncology for management of her INSIDE FINISHER metastases. As those stabilize and she can be discharged, I have encouraged her to continue her current care plan with the [facility] team for now so that she can continue with appropriately dose-dense therapy and yet create a "window" to make the trip to [place] with her daughter 3. Palliative care resources will continue to be important, she is already connected with those at [facility] but may need backup options if that provider goes on maternity leave 4. We have spoken at length and very frankly about her prognosis. I tried to present a balanced discussion of on the one hand potential opportunities with salvage treatments (standard or experimental) to achieve additional disease stability but on the other hand an understanding of the significant aggression of her disease as shown thus far and the unfortunate possibility of a less than optimal response. I have specifically avoided, however, giving a specific timeline as I want that not to become a self-fulfilling prophecy. I think that she did well understand the spectrum of prognostic possibilities and the importance of reassessment after 6 to 8 weeks further on the current regimen as to response to better prognosticate in the context of the presence or absence of a good response 5. I have encouraged her to continue her connections with [facility] and also consider exploration with more close by institutions with regards to invest igational treatments that may be particularly important for a young patient otherwise reasonably healthy with aggressive disease 6. Initiated work-up for her pancytopenia as above 7. We will need to watch closely for flares of her SLE while on ICI History of Present Illness Reason for Consultation: Patient with adenocarcinoma of the right upper lobe and mediastinal involvement initially diagnosed in September of this year admitted with headache, cognitive changes, and multiple INSIDE FINISHER metastasis Attending Physician: Shweta Godinez, DO History of Present Illness Patient with a diagnosis poorly differentiated lung cancer probably adenocarcinoma Initial diagnosis September, after presenting with shortness of breath and a 4.4 cm right upper lung mass with hypermetabolic mediastinal adenopathy. Treated initially stage IIIA disease with weekly Taxol/carboplatinum base chemoradiation completed 01/16/2023 omitting the last 4 fractions of radiation treatment because of evolving radiation esophagitis. Immediate posttreatment imaging did show evolution of renal lesions which ultimately by biopsy were consistent with metastatic lung adenocarcinoma. She has also subsequently developed multiple brain lesions Has received an initial cycle of salvage carboplatinum/Alimta/Keytruda on 02/19/2023 with a second opinion at [facility] affirming that treatment choice. Now admitted with headache and some cognitive changes for acute management of her INSIDE FINISHER metastases. See also radiation oncology notes for more detailed chronology of her diagnosis and treatment. Patient is a former heavier smoker who is cut down but not limited to that habit altogether Allergies Allergy/AdvReac Type Severity Reaction Status Date / Time levofloxacin [From Levaquin] Allergy Severe THROAT Verified 03/04/23 01:31 SWELLS SHUT, ITCHY--RASH PER [facility] Penicillins Allergy Severe Anaphylaxis Verified 03/04/23 01:31 clindamycin Allergy Intermediate CAUSED A Verified 03/04/23 01:31 YEAST INFECTION X 6 MONTHS povidone-iodine Allergy Intermediate Rash Verified 03/04/23 01:31 [From Betadine] silver Allergy Intermediate Rash Verified 03/04/23 01:31 [From Tegaderm AG Mesh] bupropion [From Wellbutrin] AdvReac Severe suicidal Verified 03/04/23 01:31 ideation duloxetine AdvReac Severe suicidal Verified 03/04/23 01:31 ideations sulfamethoxazole AdvReac Mild YEAST Verified 03/04/23 01:31 [From Bactrim] INFECTION trimethoprim [From Bactrim] AdvReac Mild YEAST Verified 03/04/23 01:31 INFECTION ANESTHESIA AdvReac Severe PER Uncoded 03/04/23 01:31 GMG--PSEUDOCHLOINESTERASE---FLAT LINES PLASTIC AdvReac Severe SKIN PEELS Uncoded 03/04/23 01:31 Home Medications Medication Instructions Recorded Confirmed Type spironolactone 100 mg tablet 200 mg PO BID 09/24/19 03/04/23 History (Aldactone) albuterol sulfate 90 mcg/actuation 2 puff inhalation Q4H PRN 09/21/22 03/04/23 History aerosol inhaler (Ventolin HFA) COUGH/SOB/WHEEZING fluticasone propionate 230 2 inh inhalation BID 10/24/22 03/04/23 History mcg-salmeterol 21 mcg/actuation HFA inhaler (Advair HFA) lorazepam 0.5 mg tablet 0.5 mg PO TID PRN Anxiety 10/24/22 03/04/23 History Magic Mouthwash 300 mL mouthwash 10 ml mucous membrane ACHS #300 mL 12/04/22 03/04/23 Rx famotidine 10 mg tablet (Acid 10 mg PO BID #60 tabs 12/10/22 03/04/23 Rx Athletics Director (famotidine)) benzonatate 100 mg capsule 100 mg PO TID PRN cough #60 caps 12/22/22 03/04/23 Rx chlorpromazine 25 mg tablet 25 mg PO QID PRN Hiccups 12/31/22 03/04/23 History ondansetron HCl 8 mg tablet 8 mg PO Q8H PRN Other 01/06/23 03/04/23 History morphine 15 mg immediate release 15 mg PO Q4H PRN Pain, Severe 01/13/23 03/04/23 History tablet pantoprazole 40 mg tablet,delayed 40 mg PO QAM #90 tabs 01/21/23 03/04/23 Rx release polyethylene glycol 3350 17 gram 17 g PO BID 02/06/23 03/04/23 History oral powder packet (Miralax) apixaban 5 mg tablet (Eliquis) 5 mg PO BID 02/07/23 03/04/23 History fluticasone propionate 50 2 spray intranasal QAM 02/07/23 03/04/23 History mcg/actuation nasal spray,suspension folic acid 1 mg tablet 1 mg PO DAILY 02/07/23 03/04/23 History lubiprostone 24 mcg capsule 24 mcg PO BID 02/07/23 03/04/23 History albuterol sulfate 2.5 mg/3 mL 2.5 mg inhalation DIRECTED PRN 03/04/23 03/04/23 History (0.083 %) solution for nebulization Shortness Of Breath Or Wheezing bisacodyl 10 mg rectal suppository 10 mg DC BID 03/04/23 03/04/23 History dexamethasone 4 mg tablet 4 mg PO DIRECTED 03/04/23 03/04/23 History dexamethasone 4 mg tablet 8 mg PO DIRECTED 03/04/23 03/04/23 History enoxaparin 100 mg/mL subcutaneous 100 mg subcut BID 03/04/23 03/04/23 History syringe lidocaine-prilocaine 2.5 %-2.5 % 1 applic topical DIRECTED PRN 1 03/04/23 03/04/23 History topical cream HR PRIOR TO PORT ACCESS meloxicam 15 mg tablet 15 mg PO DAILY 03/04/23 03/04/23 History phenazopyridine 200 mg tablet 200 mg PO TID PRN Pain 03/04/23 03/04/23 History prochlorperazine maleate 10 mg 10 mg PO Q6H PRN NAUSEA/VOMITING 03/04/23 03/04/23 History tablet (Compazine) promethazine 25 mg tablet 12.5 mg PO Q6H PRN NAUSEA/VOMITING 03/04/23 03/04/23 History sennosides 8.6 mg tablet 17.2 mg PO TID 03/04/23 03/04/23 History sucralfate 100 mg/mL oral 10 ml PO QID 03/04/23 03/04/23 History suspension (Carafate) umeclidinium 62.5 mcg/actuation 1 inh inhalation DAILY 03/04/23 03/04/23 History blister powder for inhalation (Incruse Ellipta) varenicline 0.5 mg (11)-1 mg (42) 1 ea PO DIRECTED 03/04/23 03/04/23 History tablets in a dose pack (Chantix Starting Month Box) Patient History Medical History (Updated 03/05/23 @ 15:56 by Javy Persaud PA-C) ADHD Asthma Chronic cough Chronic low back pain Encounter for pre-operative examination Endometriosis of the uterus, unspecified Primary adenocarcinoma of upper lobe of right lung (10/03/22) Pseudocholinesterase deficiency Systemic lupus erythematosus Tobacco abuse Surgical History H/O right wrist surgery H/O tubal ligation H/O: hysterectomy History of cholecystectomy Hx of appendectomy S/P bronchoscopy Family History Mother Cancer Breast Grandmother (Maternal) Cancer Lung Social History Smoking Status: Current every day smoker Tobacco Type: Cigarettes Cigarettes Per Day: 1/2 pack daily; Second Hand Exposure: Yes; Do You Dip or Chew Tobacco: No; Hx Alcohol Use: No Hx Substance Use: No Preferred Language: Argentine Communication Ability: Effective Visual Impairment: No Limitations Hearing Ability: Normal Hand Stemmer Required: No Beliefs That Will Affect Care: None marital status: Single Current Living Situation: Alone Current Living Situation Comment: engaged current occupational status: unemployed 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 She has no meningismus, she is alert, she has sophisticated and fluent speech though she clearly struggles with short-term memory and has some cognitive changes that are subtle. I do believe that she still shows intact basic capacity for medical decision making There is no clear pathologic peripheral adenopathy Lung sounds are mildly decreased but she is moving air well without stridor or gross local rubs or rales Cardiac rhythm is regular without pathological murmur Her abdomen is benign There are no signs of DVT Results & Data Vital Signs (Past 12 Hours) Vital Signs Temp Pulse Resp BP Pulse Ox Pulse Ox O2 Del Method 03/05/23 20:15 Room Air, Nasal Cannula 03/05/23 20:15 99 03/05/23 20:23 36.5 C 87 16 130/91 99 Room Air O2 Del Method O2 Flow Rate 03/05/23 20:15 2 03/05/23 20:15 Room Air 03/05/23 20:23 Laboratory Results Laboratory Results - last 24 hr 03/05/23 03/05/23 05:33 05:33 WBC 1.46 L RBC 2.24 L Hgb 8.2 L Hct 23.4 L MCV 104.5 H MCH 36.6 H MCHC 35.0 RDW Std Deviation 46.2 RDW Coeff of Saritha 12.8 Plt Count 114 L D MPV 10.5 Absolute Nucleated RBC 0.03 Nucleated RBC % (auto) 2.1 Neutrophils % (Manual) 62 Lymphocytes % (Manual) 33 Monocytes % (Manual) 4 Metamyelocytes % (Man) 1 Neutrophils # (Manual) 0.91 L Total Absolute Neuts 0.91 L* Lymphocytes # (Manual) 0.48 L Total Abs Lymphocytes 0.48 L Monocytes # (Manual) 0.06 L Metamyelocytes # (Man) 0.01 H Polychromasia 1+ Sodium 135 L Potassium 4.3 Chloride 105 Carbon Dioxide 25 Anion Gap 5 BUN 9 Creatinine 0.76 Est Cr Clr Drug Dosing 103.1 Est GFR ( Amer) 110.6 Est GFR (Non-Af Amer) 95.4 BUN/Creatinine Ratio 11.8 Glucose 140 H Calcium 9.0 Diagnostic Findings Chest X-Ray 03/03/23 21:00 XR chest 1V portable HISTORY: 42 years-old Female stroke alert acute strokelike symptoms COMPARISON: 01/18/2023 TECHNIQUE: AP view of the chest FINDINGS: Cardiomediastinal hilar silhouettes are unchanged. Right IJ Bnizzg-s-Ezcl catheter is noted with distal tip in expected location of the superior cavoatrial junction. Spiculated right upper lobe lesion measuring approximately 3 cm is again noted with adjacent linear scarring. Mild pulmonary emphysema. IMPRESSION: 1. Mild emphysema without acute process. 2. Right upper lobe lesion redemonstrated. ACT 112: Negative or not required by law. The above report was generated using voice recognition software. It may contain grammatical, syntax or spelling errors. Electronically signed by: Gamaliel Mahan M.D. 03/04/2023 7:[address] 03/03/23 21:00 CR Exam(s): CT HEAD Without Contrast EXAM: CT Head Without Intravenous Contrast CLINICAL HISTORY: Reason for exam: Neuro deficit, acute, stroke suspected. reports severe headache that started when she woke up and reports she's having TIA sypmptoms woke up at 0630 in normal health, as per patient holding her head in triage and is slow to respond states he got home from work and he couldn't understand her words and she was confused states lights and sounds are bothering her also reports she has metastatic cancer (to include the brain) TECHNIQUE: Axial computed tomography images of the head/brain without intravenous contrast. CTDI is 37.32 mGy and DLP is 625.8 mGy-cm. Automated exposure control was utilized for the study. A dose lowering technique was utilized adhering to the principles of ALARA. COMPARISON: MRI brain dated 10/20/2022, outside hospital study. Report not available FINDINGS: Brain: Approximately 6 cm area of white matter hypoattenuation/vasogenic edema in the right parietotemporal lobes. New since the prior MRI. Associated regional mass-effect with effacement of sulci, mild compression of the right lateral ventricle, and 6 mm leftward midline shift. New mild white matter hypoattenuation/vasogenic edema in bilateral occipital lobes and possibly right cerebellum. Basilar cisterns are patent. No intracranial hemorrhage. Ventricles: Unremarkable. No ventriculomegaly. Bones/joints: Unfused posterior C1 arch, partially visualized, variant anatomy. No acute fracture. Soft tissues: Unremarkable. Sinuses: Unremarkable as visualized. No acute sinusitis. Mastoid air cells: Unremarkable as visualized. No mastoid effusion. IMPRESSION: 1. Approximately 6 cm area of white matter hypoattenuation/vasogenic edema in the right parietotemporal lobes. New since the prior MRI. Associated regional mass-effect and 6 mm leftward midline shift. 2. New mild white matter hypoattenuation/vasogenic edema in bilateral occipital lobes and possibly right cerebellum. 3. Given history, above findings are worrisome for underlying metastatic lesions. Recommend MRI without and with contrast to further evaluate. Communications: 03/04/23 01:19 Call Doctor Regarding Above results, called Dr. Roper on 03/04 01:19 (-04:00) Electronically signed by: Arnaud Burrell M.D. 03/04/23 01:25 AM Brain MRI 03/04/23 04:38 Brain MRI WITH AND WITHOUT CONTRAST HISTORY: Evaluate intracranial metastatic disease. TECHNIQUE: Multiplanar multisequence MRI of the brain was performed both before and after the intravenous administration of contrast. COMPARISON STUDY: Head CT 03/04/2023. Outside hospital brain MRI 10/20/2022. FINDINGS: No areas of restricted diffusion to suggest acute infarction. Small retention cyst within the left maxillary sinus. The orbits are unremarkable. The mastoid air cells are clear. The major vascular flow-voids at the skull base are well-maintained. There is up to 4 mm of left midline shift. No intracranial hemorrhage identified. This is secondary to the 7 cm area of vasogenic edema involving the right temporal/parietal lobes. Additional smaller areas of vasogenic edema within the bilateral occipital lobes, left frontal lobe near the high convexity, and right cerebellar hemisphere. Postcontrast sequences confirm the presence of underlying enhancing cystic lesions at these locations of vasogenic edema. Dominant lesion within the right temporal lobe measures 13 mm. These are consistent with metastatic disease. IMPRESSION: A total of 5 enhancing lesions within the brain with the dominant lesion within the right temporal lobe measuring 13 mm consistent with intracranial metastatic disease. There is associated vasogenic edema at these locations most pronounced at the right temporal lobe lesion resulting in 4 mm of left midline shift. ACT 112: Negative or not required by law. Electronically signed by: Kofi Tafoya M.D. 03/04/2023 2:21 PM Abdomen/Pelvis CT 03/04/23 22:35 Exam(s): CT ABDOMEN + PELVIS With Contrast IV Amt: 91 ml opti 320 EXAM: CT Abdomen and Pelvis With Intravenous Contrast CLINICAL HISTORY: Reason for exam: worsening abd pain. TECHNIQUE: Axial computed tomography images of the abdomen and pelvis with intravenous contrast. CTDI is 27 mGy and DLP is 1428 mGy-cm. Automated exposure control was utilized for the study. A dose lowering technique was utilized adhering to the principles of ALARA. CONTRAST: Patient received 91 ml opti 320 of IV contrast COMPARISON: No relevant prior studies available. FINDINGS: Lung bases: Unremarkable. No mass. No consolidation. ABDOMEN: Liver: Unremarkable. No mass. Gallbladder and bile ducts: Unremarkable. No calcified stones. No ductal dilation. Pancreas: Unremarkable. No mass. No ductal dilation. Spleen: Unremarkable. No splenomegaly. Adrenals: Unremarkable. No mass. Kidneys and ureters: RIGHT mid pole renal mass measures 4.5 x 4.1 x 4. 6 cm. Differential includes renal cell carcinoma versus developing intrarenal abscess. Additional low-attenuation mass in the inferior LEFT kidney measures 2.4 x 2.3 cm. This is of similar appearance to the larger right-sided mass. Stomach and bowel: Diverticulosis, without acute diverticulitis. No small bowel obstruction. No free intraperitoneal air. PELVIS: Appendix: No findings to suggest acute appendicitis. Bladder: Unremarkable. No mass. Reproductive: Hysterectomy. ABDOMEN and PELVIS: Intraperitoneal space: Unremarkable. No free air. No significant fluid collection. Bones/joints: Degenerative changes of the spine. No acute fracture. No dislocation. Soft tissues: Unremarkable. Vasculature: Atherosclerotic changes of the aorta. No abdominal aortic aneurysm. Lymph nodes: Unremarkable. No enlarged lymph nodes. IMPRESSION: 1. RIGHT mid pole renal mass measures 4.5 x 4.1 x 4.6 cm. Differential includes renal cell carcinoma versus developing intrarenal abscess. 2. Additional low-attenuation mass in the inferior LEFT kidney measures 2.4 x 2.3 cm. This is of similar appearance to the larger right-sided mass. MRI with contrast recommended for further evaluation. Electronically signed by: Tristen Ross MD 03/04/23 23:59 PM Abdomen MRI 03/05/23 00:11 Exam(s): MRI ABDOMEN W/WO Contrast IV EXAM: MR Abdomen Without and With Intravenous Contrast CLINICAL HISTORY: Reason for exam: abd pain, abn ct. TECHNIQUE: Multiplanar magnetic resonance images of the abdomen without and with intravenous contrast. CONTRAST: Patient received of IV contrast COMPARISON: CT abdomen pelvis 03/04/2023 FINDINGS: Lung bases: Unremarkable. No mass. No consolidation. Liver: Unremarkable. No mass. Gallbladder and bile ducts: Status post cholecystectomy. No biliary dilatation. No filling defect within the common bile duct. Pancreas: Unremarkable. No ductal dilation. No mass. Spleen: Unremarkable. No splenomegaly. Adrenals: Left adrenal adenoma measuring 1.6 cm. Normal appearance of the right adrenal gland. Kidneys and ureters: Rounded masslike regions of heterogeneous enhancement within the kidneys bilaterally. On the right measuring approximately 4.6 x 4.1 cm and on the left measuring 2.6 x 2.5 cm. No hydronephrosis. Stomach and bowel: Unremarkable. No obstruction. Intraperitoneal space: Unremarkable. No significant fluid collection. Soft tissues: Unremarkable. Vasculature: Unremarkable. No abdominal aortic aneurysm. Lymph nodes: Unremarkable. No enlarged lymph nodes. IMPRESSION: 1. Rounded masslike regions of heterogeneous enhancement within the kidneys bilaterally. On the right measuring approximately 4.6 x 4.1 cm and on the left measuring 2.6 x 2.5 cm. Differential includes renal cell carcinoma and pyelonephritis. 2. Left adrenal adenoma measuring 1.6 cm. Electronically signed by: Peyman Barr MD 03/05/23 04:15 AM PG Care Time/CCT Total # of Minutes Spent Total Time Spent with Patient: Total time spent is greater than 50% in coordination of care (as documented) at patient's floor/unit and/or counseling patient: [place] [address] IN/OBS CONSULT LVL 5,80M Patient Type New History Expanded Problem Focused Medical Decision Making High Complexity Diagnoses Metastasis to brain C79.31 Primary adenocarcinoma of upper lobe of right lung C34.11 Pulmonary embolism I26.99 Systemic lupus erythematosus M32.9 Systemic lupus erythematosus organ involvement: unspecified Systemic lupus erythematosus type: unspecified Pancytopenia D61.818 (4) Systemic lupus erythematosus Systemic lupus erythematosus organ involvement: unspecified Systemic lupus erythematosus type: unspecified Qualified Code(s): M32.9 - Systemic lupus erythematosus, unspecified
[2023-03-06] MEDS: dexAMETHasone 10 MG in SYRINGE 0 ML IV SCH ×2 (06:26→11:32)
[2023-03-06] MEDS: SUCRALFATE 1 GM/10 ML UDC PO SCH ×2 (07:52→11:32)
[2023-03-06] MEDS: BUTALBITAL/ACETAMIN/CAFFEINE TAB PO PRN (07:54)
[2023-03-06] MEDS: FLUTICASONE/VILANTEROL 200/25MCG 14 PUFFS/INHALER INH SCH (07:55)
[2023-03-06] MEDS: LUBIPROSTONE 8 MCG CAP PO SCH (07:56)
[2023-03-06] MEDS: FOLIC ACID 1 MG TAB PO SCH (07:56)
[2023-03-06] MEDS: UMECLIDINIUM BROMIDE 62.5MCG/BLISTER 7 PUFFS/INHALER INH SCH (07:56)
[2023-03-06] MEDS: SENNA 8.6 MG TAB PO SCH ×2 (07:57→14:45)
[2023-03-06] MEDS: SPIRONOLACTONE 100 MG TAB PO SCH (07:57)
[2023-03-06] MEDS: PANTOprazole 40 MG TAB PO SCH (07:57)
[2023-03-06] MEDS: FLUTICASONE PROPIONATE NA SPR 16 GM BTL SCH (07:58)
[2023-03-06] MEDS: bisacodyL 10 MG SUPP PR SCH (07:58)
[2023-03-06] MEDS: FIRST - Mouthwash BLM 119 ML PO SCH ×2 (07:59→11:32)
[2023-03-06] MEDS: POLYETHYLENE (MIRALAX) 17 GM PACK PO SCH (07:59)
[2023-03-06] MEDS: EUCERIN CR 120 GM JAR EXT SCH ×2 (08:00→14:45)
[2023-03-06] MEDS: FAMOTIDINE 10 MG TABLET PO SCH (08:00)
[2023-03-06] MEDS: PHENAZOPYRIDINE HCL 100 MG TAB PO PRN ×2 (08:04→14:44)
[2023-03-06] MEDS: LORazepam 0.5 MG TAB PO PRN (08:33)
[2023-03-06 08:41] LABS: Reticulocyte % 4.9 % (0.5-2.0); Reticulocytes # 0.12 10^6/uL (0.02-0.10)
[2023-03-06 08:46] LABS: Folate (Folic Acid),Ser orPlas 13.71 ng/ml (>5.38)
--- NOTE | 2023-03-06 09:21 | Palliative Care Consultation ---
Date of Consultation March 06, 2023 Assessment & Plan (1) Cancer related pain: Ritchie is on a home regimen of MS Contin 15mg PO Q12h. This has until this admission worked well for her, but headaches from presentation are now 99% better per her report Suggest stopping IV Dilaudid, headache improved with decadron Move to Decadron 4mg PO Daily x 7 days & she starts RT to brain x 3 sessions on Thursday Stop IV Dilaudid Resume MS Contin 15mg PO q12h (2) Headache: see #1 above, this is a cancer related headache due to brain mets (3) Visual changes: due to brain mets, improving with steroid and for RT next week (4) Palliative care by specialist: Met with pt/family. Provided overview of Palliative Medicine, a subspecialty that provides specialized medical care for people living with a serious illness by offering a focus on quality of life. Palliative Medicine is often conflated with hospice: I advised patient/family that Palliative and hospice can be partners but we are not the same. It is important to understand the difference so that we may be informed, and not afraid. Palliative Medicine works to improve QOL through reduction of symptom burden/more control over their illness, for both the patient and family. Palliative medicine clinicians are board certified, specially-trained and another member of the patient's medical care team. We often provide an extra layer of support because our care is based on the needs of the patient, not the prognosis; as such, it's appropriate at any age/advancing stage of a serious illness and can be provided along with curative treatment. Palliative Medicine clinicians are also trained in advanced communication methodologies, to facilitate complex discussions about advanced illness planning, which are needed to help assure that the treatment choices match the patient's goals, aka delivering Goal Concordant care. She is currently followed at [facility] (5) Advanced care planning/counseling discussion: * Ritchie had several questions about her mortality and prognosis. She had a very lengthy and detailed conversation with Dr. Jimenez as well. * She asks about her staging: was III-A on presentation August 2022. Now with brain mets this is a Stage IV cancer: she completed chemoradiation with carboplatin/Taxol immediate posttreatment imaging unfortunately showed the evolution of renal lesions which were biopsy positive for metastatic lung adenocarcinoma and she is now ultimately developed HYDRAULIC TESTER metastases and probable bone metastases. * Salvage Rx with pemetrexed/carboplatinum/pembrolizumab has been affirmed by a second opinion at [facility], she is receiving this locally at [facility] and has had one dose. * We spoke about prognosis. She states she was initially told she had years but now with brain and likely bone mets, she knows this may be different but is lacking a better sense of if this means she has weeks to months or possible still a year or more. I advised that much of that answer depends on the tincture of time and response to therapies including upcoming RT and new salvage regimen. Her PS has been reasonably good and she has tolerated chemoradiation well to date. I suggested we see how things go over the next few weeks. She asked what are signs things are getting worse. We reviewed what some of those changes might look like estrella declining PS, weakness, anorexia/cachexia, immobility, increased treatment toxicities/intolerance +/- disease progression in spite of therapy. * She remains firm in the goal of living as long as possible for her family and her child: she is raising a 7yo grand daughter, Anna. She and her have full custody of Anna. She has not had many conversations about her cancer prognosis with Anna but notes that she and have been having more conversations about how much to tell and how to explain it. I suggested she connect with Anna's peds team for additional guidance as well as resources available from [facility] online + local/online support groups for parents and caregivers. I also suggested seeking peds psych help locally if desired. I advised Ritchie Stauffer (Dr Dial or Vickie Chavez or myself if needed) would be happy to assist with breaking this news and helping explain things to Anna with them in clinic if that became more urgent a need. * She reaffirms full code * She expressed desire for help with non medical issues including home cleaning services, financial assistance for rent, utilities etc. She has already received support for these through the [employer] fund at [facility] as well as via [facility] as well. * She is asking about clinical trials: since she follows with [facility], I recommended she call the Oncology clinical trials coordinators on main campus. * This ACP discussion was held with pt and at bedside face to face for 50min Plan * ACP discussion as noted above * She is asking for dc home, feels 99% better than when she arrived. * If dc today or over weekend, please begin Decadron 4mg PO x 7 days and please stop IV Decadron * Stop IV Dilaudid * Resume home regimen MS Contin 15mg PO q12h/hold for somnolence or RR < 14/min * She will not need a new rx for opioids: these are managed by [facility] and she has adequate quantities. She does not need an BTP short acting opioid, the headache has resolved >90% and she is going to stay on steroid + have RT. her baseline cancer pain is managed well on MS Contin regimen outlined above. * Suggest coordination with CM for help with social service needs and also she is seeking to change insurance to [employer] medicaid to help facilitate her dental work needed before she can begin Xgeva. * I updated primary team/Dr. Godinez Thank you for allowing us to participate in the ongoing care of this patient. Please don't hesitate to call or page with any additional concerns. Dr. Marissa Hickman DNP Director, Palliative Care CC: Rasheed Charlton MD History of Present Illness Reason for Consultation: "metastatic cancer, patient requests consultation" Attending Physician: Shweta Godinez, DO History of Present Illness Ritchie is a 42yo fem admitted 03/04/23 with severe KEE and confusion. She has metastatic lung ca with mets to kidney and brain. Brain MRI 03/04/23: A total of 5 enhancing lesions within the brain with the dominant lesion within the right temporal lobe measuring 13 mm consistent with intracranial metastatic disease. There is associated vasogenic edema at these locations most pronounced at the right temporal lobe lesion resulting in 4 mm of left midline shift. CT head, 03/03/23: 1. Approximately 6 cm area of white matter hypoattenuation/vasogenic edema in the right parietotemporal lobes. New since the prior MRI. Associated regional mass-effect and 6 mm leftward midline shift. 2. New mild white matter hypoattenuation/vasogenic edema in bilateral occipital lobes and possibly right cerebellum. 3. Given history, above findings are worrisome for underlying metastatic lesions. Recommend MRI without and with contrast to further evaluate. CT Abd/pelv 03/04/23: 1. RIGHT mid pole renal mass measures 4.5 x 4.1 x 4.6 cm. Differential includes renal cell carcinoma versus developing intrarenal abscess. 2. Additional low-attenuation mass in the inferior LEFT kidney measures2.4 x 2.3 cm. This is of similar appearance to the larger right-sided mass. Abd MRI, 03/04/23: 1. Rounded masslike regions of heterogeneous enhancement within the kidneys bilaterally. On the right measuring approximately 4.6 x 4.1 cm and on the left measuring 2.6 x 2.5 cm. Differential includes renal cell carcinoma and pyelonephritis. 2. Left adrenal adenoma measuring 1.6 cm. PMH: lupus, bipolar disorder, ADHD, fibromyalgia, Raynaud's, pseudocholinesterase deficiency, . Oncology HX: RUL non-small cell lung cancer, with mediastinal lymph node involvement, as well as hx of cutaneous lupus and COPD. She was diagnosed in August of 2022, was seen at [facility]; she was not felt to be a surgical candidate d/t locally advanced disease and poor lung fxn. She reveives RT at [facility], recent consult note states the following: "The patient was previously treated with chemotherapy and radiation therapy. The patient received a partial course of radiation therapy and stopped treatment due to intolerance to side effects including radiation esophagitis (5800 cGy, 29 fractions, 01/16/2023). Following completion of chemotherapy and radiation therapy, the patient did have progression of disease. The patient was recently found to have metastatic disease involving the brain. The patient was referred to radiation oncology however she missed 2 appointments in our department. The patient has sought out a second opinion consultation at [facility] to confirm systemic therapy treatment options. The patient is currently receiving carboplatin/Keytruda/Alimta underneath the supervision of Dr. Joaquín Charlton." Met lung ca was dx in August 2022. CT demonstrated 6mm white matter hypoattenuation and vasogenic edema with associated mass effect and 6mmleft midline shift. She had radiation in December to the chest. Has been under the care of Dr Charlton at [facility] and is receiving weekly Paclitaxel with plan for total of 8 cycles then re eval. May have some radiation esophagitis, had a dilation in December 2022. Chart review: CTA chest december 31 2022 Right lower lobe subsegmental PE. CTA chest january 05 2023 No PE. On Eliquis. She has a hx of multiple abdominal surgeries - gallbladder, exploratory laparotomy, c section She has chronic constipation which exacerbates with opioid use She ahs been on MS CONTIN through [facility] She has chronic esoph dysfunction and has had numerous dilations She has lupus and follows with Dr Raman from [facility] She sees Dr Nolan for pulmonary follow up of her COPD, she is an active smoker [facility] reveals the following: positive cytology/biopsy for adeno carcinoma lung on EBUS bronchoscopy, When in the hospital she was on IV dilaudid, which worked well, but was sent home with dilaudid 2mg tab and instructed to take 0.5mg. This dose has not been effective. She tried the 2mg tablet which also did not seem very effective. 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 Intensely hypermetabolic right upper lobe pulmonary mass, measuring up to 4.4 cm, consistent with biopsy proven malignancy. 2. Intensely hypermetabolic right hilar and mediastinal lymphadenopathy, increased in size from the recent prior exam, concerning for elzbieta metastases. 3. Additional 0.8 cm nodule in the right apex with minimal associated activity may represent an adenocarcinoma spectrum lesion. Ritchie Lowe was identified by name, Date of : (1980), and . Vitals were obtained for testing. Body mass index is 31.36 kg/m. Exercise oximetry performed on room air x 6 minutes. Pt ambulated 1440 feet/ 439 meters. No rest periods were required. Lowest SPO2 on room air was 93%. Allergies Allergy/AdvReac Type Severity Reaction Status Date / Time levofloxacin [From Levaquin] Allergy Severe THROAT Verified 03/04/23 01:31 SWELLS SHUT, ITCHY--RASH PER [facility] Penicillins Allergy Severe Anaphylaxis Verified 03/04/23 01:31 clindamycin Allergy Intermediate CAUSED A Verified 03/04/23 01:31 YEAST INFECTION X 6 MONTHS povidone-iodine Allergy Intermediate Rash Verified 03/04/23 01:31 [From Betadine] silver Allergy Intermediate Rash Verified 03/04/23 01:31 [From Tegaderm AG Mesh] bupropion [From Wellbutrin] AdvReac Severe suicidal Verified 03/04/23 01:31 ideation duloxetine AdvReac Severe suicidal Verified 03/04/23 01:31 ideations sulfamethoxazole AdvReac Mild YEAST Verified 03/04/23 01:31 [From Bactrim] INFECTION trimethoprim [From Bactrim] AdvReac Mild YEAST Verified 03/04/23 01:31 INFECTION ANESTHESIA AdvReac Severe PER Uncoded 03/04/23 01:31 [facility]--PSEUDOCHLOINESTERASE---FLAT LINES PLASTIC AdvReac Severe SKIN PEELS Uncoded 03/04/23 01:31 Home Medications Medication Instructions Recorded Confirmed Type spironolactone 100 mg tablet 200 mg PO BID 09/24/19 03/04/23 History (Aldactone) albuterol sulfate 90 mcg/actuation 2 puff inhalation Q4H PRN 09/21/22 03/04/23 History aerosol inhaler (Ventolin HFA) COUGH/SOB/WHEEZING fluticasone propionate 230 2 inh inhalation BID 10/24/22 03/04/23 History mcg-salmeterol 21 mcg/actuation HFA inhaler (Advair HFA) lorazepam 0.5 mg tablet 0.5 mg PO TID PRN Anxiety 10/24/22 03/04/23 History Magic Mouthwash 300 mL mouthwash 10 ml mucous membrane ACHS #300 mL 12/04/22 03/04/23 Rx famotidine 10 mg tablet (Acid 10 mg PO BID #60 tabs 12/10/22 03/04/23 Rx Marketing Database Consultant (famotidine)) benzonatate 100 mg capsule 100 mg PO TID PRN cough #60 caps 12/22/22 03/04/23 Rx chlorpromazine 25 mg tablet 25 mg PO QID PRN Hiccups 12/31/22 03/04/23 History ondansetron HCl 8 mg tablet 8 mg PO Q8H PRN Other 01/06/23 03/04/23 History morphine 15 mg immediate release 15 mg PO Q4H PRN Pain, Severe 01/13/23 03/04/23 History tablet pantoprazole 40 mg tablet,delayed 40 mg PO QAM #90 tabs 01/21/23 03/04/23 Rx release polyethylene glycol 3350 17 gram 17 g PO BID 02/06/23 03/04/23 History oral powder packet (Miralax) apixaban 5 mg tablet (Eliquis) 5 mg PO BID 02/07/23 03/04/23 History fluticasone propionate 50 2 spray intranasal QAM 02/07/23 03/04/23 History mcg/actuation nasal spray,suspension folic acid 1 mg tablet 1 mg PO DAILY 02/07/23 03/04/23 History lubiprostone 24 mcg capsule 24 mcg PO BID 02/07/23 03/04/23 History albuterol sulfate 2.5 mg/3 mL 2.5 mg inhalation DIRECTED PRN 03/04/23 03/04/23 History (0.083 %) solution for nebulization Shortness Of Breath Or Wheezing bisacodyl 10 mg rectal suppository 10 mg NM BID 03/04/23 03/04/23 History dexamethasone 4 mg tablet 4 mg PO DIRECTED 03/04/23 03/04/23 History dexamethasone 4 mg tablet 8 mg PO DIRECTED 03/04/23 03/04/23 History enoxaparin 100 mg/mL subcutaneous 100 mg subcut BID 03/04/23 03/04/23 History syringe lidocaine-prilocaine 2.5 %-2.5 % 1 applic topical DIRECTED PRN 1 03/04/23 03/04/23 History topical cream HR PRIOR TO PORT ACCESS meloxicam 15 mg tablet 15 mg PO DAILY 03/04/23 03/04/23 History phenazopyridine 200 mg tablet 200 mg PO TID PRN Pain 03/04/23 03/04/23 History prochlorperazine maleate 10 mg 10 mg PO Q6H PRN NAUSEA/VOMITING 03/04/23 03/04/23 History tablet (Compazine) promethazine 25 mg tablet 12.5 mg PO Q6H PRN NAUSEA/VOMITING 03/04/23 03/04/23 History sennosides 8.6 mg tablet 17.2 mg PO TID 03/04/23 03/04/23 History sucralfate 100 mg/mL oral 10 ml PO QID 03/04/23 03/04/23 History suspension (Carafate) umeclidinium 62.5 mcg/actuation 1 inh inhalation DAILY 03/04/23 03/04/23 History blister powder for inhalation (Incruse Ellipta) varenicline 0.5 mg (11)-1 mg (42) 1 ea PO DIRECTED 03/04/23 03/04/23 History tablets in a dose pack (Chantix Starting Month Box) Patient History Medical History (Updated 03/06/23 @ 14:49 by Marissa Hickman DNP) ADHD Asthma Chronic cough Chronic low back pain Encounter for pre-operative examination Endometriosis of the uterus, unspecified Primary adenocarcinoma of upper lobe of right lung (10/03/22) Pseudocholinesterase deficiency Systemic lupus erythematosus Tobacco abuse Surgical History H/O right wrist surgery H/O tubal ligation H/O: hysterectomy History of cholecystectomy Hx of appendectomy S/P bronchoscopy Family History Mother Cancer Breast Grandmother (Maternal) Cancer Lung Social History Smoking Status: Current every day smoker Tobacco Type: Cigarettes Cigarettes Per Day: 1/2 pack daily; Second Hand Exposure: Yes; Do You Dip or Chew Tobacco: No; Hx Alcohol Use: No Hx Substance Use: No Preferred Language: Upper Sorbian Communication Ability: Effective Visual Impairment: No Limitations Hearing Ability: Normal Fireman Helper Required: No Beliefs That Will Affect Care: None marital status: Single Current Living Situation: Alone Current Living Situation Comment: engaged current occupational status: unemployed 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 Feels Safe at Home: Yes Diet: regular during the past year weight has: remained stable Assistive Devices: Oxygen - at Night Review of Systems Review of Systems: All systems reviewed & are unremarkable except as noted in Subjective Physical Exam Physical Exam: Resting in bed, semi reclined NAD Slightly confused/wanders off topic /forgetful (slightly) Awake and alert x3 Resp effort WAl, intermittent bronchitic cough no JVD or audible stridor color pale +tattoos Results & Data Vital Signs (Past 12 Hours) Vital Signs Temp Pulse Resp BP Pulse Ox O2 Del Method 03/06/23 07:37 36.6 C 78 16 111/75 98 Room Air Laboratory Results data reviewed, see HPI Diagnostic Findings data reviewed, see HPI PG Care Time/CCT Total # of Minutes Spent Total Time Spent: 120 Total Time Spent with Patient: Total time spent is greater than 50% in coordination of care (as documented) at patient's floor/unit and/or counseling patient: I spent 120 minutes overall addressing this case: 25 in medical data review/discussion with referring provider(s) and/or preparation for the visit including OSH data review, Nu-B-2B emr link a [facility] records 20 in direct interaction with the patient []and/or [] 50 Advance Care Planning/Goals of Care discussions as detailed above in note (must be >16min) 15 in subsequent review and synthesis of assessment and plan 10 in communicating with other providers regarding the patient's case: primary team Advanced Care Planning 03548 Advanced Care Planning 30 Min 30978 Advanced Care Planning Additional 30 [place] [address] IN/OBS CONSULT LVL 5,80M Patient Type New Medical Decision Making High Complexity Diagnoses Cancer related pain G89.3 Headache R51.9 Visual changes H53.9 Palliative care by specialist Z51.5 Advanced care planning/counseling discussion Z71.89 Additional Codes Advanced Care Planning - 95303 Advanced Care Planning 30 Min: 35908 Advanced Care Planning 30 Min ([id number]) Advanced Care Planning - 13425 Advanced Care Planning Additional 30 Min: 45666 Advanced Care Planning Additional 30 Min ([id number])
[2023-03-06 11:17] LABS: Hemoglobin 9.1 g/dl (12.0-16.0); Mean Corpuscular Hemoglobin 36.8 pg (25.0-34.0); Mean Corpuscular Volume 105.3 fL (80.0-100.0); Mean Platelet Volume 9.6 fL (9.4-12.4); Nucleated RBC # (auto) 0.07 K/uL (0.00-0.12); Nucleated RBC % (auto) 3.2 %; Platelet Count 165 K/uL (130-400); RDW Coefficient of Variation 13.5 % (11.5-14.5); RDW Standard Deviation 48.5 fL (36.4-46.3); Red Blood Count 2.47 M/uL (4.20-5.40); White Blood Count 2.22 K/ul (4.8-10.8)
[2023-03-06 11:41] LABS: Albumin Globulin Ratio 1.3 (0.9-2); Albumin Level 3.9 gm/dl (3.4-5.0); BUN Creatinine Ratio 19.5 (10-20); Bilirubin,Total 0.4 mg/dl (0.2-1.0); Calcium 9.1 mg/dl (8.6-10.3); Est GFR (African American) 93.9 ml/min; Potassium 4.2 mmol/L (3.5-5.1); Total Protein 6.9 gm/dl (6.0-8.3)
[2023-03-06 11:44] LABS: Prothrombin Time 10.9 Seconds (9.0-12.0)
[2023-03-06 11:52] LABS: ALC (manual) 0.29 K/uL (1.2-3.4); ANC (manual) 1.55 K/uL (1.4-6.5); Blast # (manual) 0.02 K/uL (0-0); Blast Cells % (manual) 1 %; Lymphocytes # (manual) 0.29 K/uL (1.2-3.4); Lymphocytes % (manual) 13 %; Metamyelocytes # (manual) 0.07 K/uL (0-0); Metamyelocytes % (manual) 3 %; Monocytes # (manual) 0.27 K/uL (0.11-0.59); Monocytes % (manual) 12 %; Neutrophils # (manual) 1.55 K/uL (1.40-6.50); Neutrophils % (manual) 70 %; Polychromasia 1+; Promyelocytes # (manual) 0.02 K/uL (0-0); Promyelocytes % (manual) 1 %; Tear Drop Cells 1+
[2023-03-06] MEDS: chlorproMAZINE HCL 25 MG TAB PO PRN (12:20)
[2023-03-06] MEDS: MoRPHine SULFATE IR 15 MG TAB (IMMEDIATE RELEASE) PO PRN (14:44)
--- NOTE | 2023-03-06 15:20 | Discharge Summary ---
Discharge Summary Date of Service March 06, 2023 Notes For Next Care Provider Please follow-up with hematology regarding consideration of IVC filter and monitoring of her ongoing pancytopenia Follow-up with radiation oncology for brain radiation. Medication Changes From Visit NEW decadron 4mg PO q6h Admission HPI Per Admitting Provider 42-year-old female with past med significant for metastatic lung cancer to kidneys and brain, lupus, bipolar disorder, ADHD, fibromyalgia, Raynaud's disease, pseudocholinesterase deficiency, PCOS comes because of severe headaches and confusion and found to have brain mets. Patient says last couple of days having headaches but progressive got very severe. Today she also seems more confused and somewhat slurred speech as per . Speech is improved. Vision is not a great. Feels some pressure behind the eyes. Some fullness in the right ear. Has some cough. No runny nose. Afebrile. Appetite is down. And having some difficulty swallowing. Patient states after radiation treatment in December she has some dysphagia from radiation and had a EGD and dilatation of esophagus and thinks symptoms are coming back. Appetite is down. No chest pain or shortness of breath currently. No abdominal pain. Constipated. Urine is orange and reddish color because of her medications. Currently resting comfort ably and hemodynamically stable. Past medical history as mentioned above Past surgical history appendectomy, bronchoscopy, cholecystectomy, cystourethroscopy, ligation of oviducts, hysterectomy, repair of bladder defect, Social history . Smokes 1 pack a day for 33 years. Currently smoking 4 cigarettes daily. No alcohol use. No drug use Family history mother had breast cancer. Maternal aunt has breast cancer. Admission Exam Per Admitting Provider General- Not in distress Head- atraumatic Eyes- PERRL, EOMI ENT- oropharynx clear Neck- supple, no JVD,. Lungs- clear to auscultation no wheezing or crackles Heart- regular rhythm; no murmur, no gallop. Abdomen- normal bowel sounds, soft, nontender, no distension. Extremities- no pretibial edema, no erythema seen Neuro- alert, oriented x 3; PERRL, EOMI; no facial palsy; no dysarthria; obeys commands, insight ok. moves extremities Skin- warm & dry Principal Dx & Hospital Course #1 = Principal Diagnosis (1) Metastasis to brain: 42-year-old female with past med significant for metastatic lung cancer to kidneys and brain, lupus, bipolar disorder, ADHD, fibromyalgia, Raynaud's disease, pseudocholinesterase deficiency, PCOS comes because severe headaches and confusion and found to have brain mets. Brain mets and severe headaches on presentation, improved with decadron and pain medication. Advised to avoid NSAIDs and anticoagulation. Metastatic lung cancer diagnosed in August CT scan of head showing 6 cm area of white matter hypoattenuation/vasogenic edema with associated mass effect and 6 mm leftward midline shift. S/p radiation treatment to the chest in December She is currently getting chemo and had first cycle ER discussed with heme-onc Dr.Nilesh Charlton and recommend to keep the patient here and consult radiation oncology-plans to start XRT therapy in next 1-2 days. Continues on decadron 4mg IV q6hrs, she prefers to stay on IV for the duration of her hospital stay. Cont with radiation oncology for planned one week of therapy then a decadron taper. Metastatic lung cancer Management as per heme-onc and radiation oncology Continues on carboplatin/Keytruda/Alimta Requests another opinion from [facility]-consulted Dr. Tony Jimenez met with her this admission and answered her questions to her satisfaction regarding prognosis. He advised further consideration for an IVC filter after reviewing the evidence surrounding her recent PE in December CTA chest december 31 2022 Right lower lobe subsegmental PE. CTA chest january 05 2023 No PE but she was still on Lovenox injections and transitioned to apixaban prior to arrival. Followup recommended for consideration of IVC filter placement depending on clinical progress and risks/benefits of this She also has a history of SLE and will, therefore, be at some risk for ICI toxicity. She also has a history of pancytopenia likely reflecting combination of pre- existing stem cell damage from her initial chemoradiation exacerbated by the recent resumption of cytotoxic chemotherapy. She should do anemia work-up with retakes, smear review and nutritional studies. There was a very small population of myelocytes present which probably reflects a recovering marrow rather than immediately suggesting primary hematologic malignancy. This should be followed by hematology outpatient. Dysphagia Possible radiation esophagitis Patient had an esophageal dilatation in December and thinks she may needed again Per GI continue Protonix and sucralfate as she had esophageal ulcer in the last EGD. She was not considered an appropriate candidate for esophageal dilation given brain mets, pancytopenia, etc. Agree with conservative management of symptoms with medications at this time. PPI was increased to twice daily and Carafate 1 g to 4 times daily. Magic mouthwash advised to use every meal and at night. Soft diet recommended. Pancytopenia 2/2 chemotherapy neutropenic without fever or signs/sxs of infection Plan as noted above. SLE Currently not on any treatment, stable Follows with rheumatology PCOS chronic, stable. on Aldactone. Discharge Exam CONSTITUTIONAL: WNWD, vitals as above, generally well-appearing, NAD EYES: normal conjunctivae, no scleral icterus, ENT: external ear and nose normal, NECK: trachea midline, RESPIRATORY: clear to auscultation bilaterally, no crackles, rales or wheezes, normal respiratory effort CARDIOVASCULAR: regular rate and rhythm, S1 and 2 heard without murmurs, gallops or rubs, no JVD, no peripheral edema GASTROINTESTINAL: soft, NTND MUSCULOSKELETAL: strength 5/5 throughout, head is normocephalic and atraumatic, ambulates independently SKIN: warm and dry, very minor papular rash that is intermittent in a small spot on her left anterior chest--no other locations are that significant except some minor rash on upper back improving prior to discharge with basic body lotion NEUROLOGIC: CN 2-12 grossly intact, no sensory deficit, normal cognition, normal speech, no tremor PSYCHIATRIC: alert cooperative and oriented to person, place and time. Euthymic mood, makes good eye contact, language grossly intact, recent and remote memory grossly intact. Updated Medication List Medication Instructions Recorded Confirmed Type spironolactone 100 mg tablet 200 mg PO BID 09/24/19 03/04/23 History (Aldactone) albuterol sulfate 90 mcg/actuation 2 puff inhalation Q4H PRN 09/21/22 03/04/23 History aerosol inhaler (Ventolin HFA) COUGH/SOB/WHEEZING fluticasone propionate 230 2 inh inhalation BID 10/24/22 03/04/23 History mcg-salmeterol 21 mcg/actuation HFA inhaler (Advair HFA) lorazepam 0.5 mg tablet 0.5 mg PO TID PRN Anxiety 10/24/22 03/04/23 History Magic Mouthwash 300 mL mouthwash 10 ml mucous membrane ACHS #300 mL 12/04/22 03/04/23 Rx famotidine 10 mg tablet (Acid 10 mg PO BID #60 tabs 12/10/22 03/04/23 Rx Natural Resource Manager (famotidine)) benzonatate 100 mg capsule 100 mg PO TID PRN cough #60 caps 12/22/22 03/04/23 Rx chlorpromazine 25 mg tablet 25 mg PO QID PRN Hiccups 12/31/22 03/04/23 History ondansetron HCl 8 mg tablet 8 mg PO Q8H PRN Other 01/06/23 03/04/23 History morphine 15 mg immediate release 15 mg PO Q4H PRN Pain, Severe 01/13/23 03/04/23 History tablet pantoprazole 40 mg tablet,delayed 40 mg PO QAM #90 tabs 01/21/23 03/04/23 Rx release polyethylene glycol 3350 17 gram 17 g PO BID 02/06/23 03/04/23 History oral powder packet (Miralax) fluticasone propionate 50 2 spray intranasal QAM 02/07/23 03/04/23 History mcg/actuation nasal spray,suspension folic acid 1 mg tablet 1 mg PO DAILY 02/07/23 03/04/23 History lubiprostone 24 mcg capsule 24 mcg PO BID 02/07/23 03/04/23 History albuterol sulfate 2.5 mg/3 mL 2.5 mg inhalation DIRECTED PRN 03/04/23 03/04/23 History (0.083 %) solution for nebulization Shortness Of Breath Or Wheezing bisacodyl 10 mg rectal suppository 10 mg [place] BID 03/04/23 03/04/23 History dexamethasone 4 mg tablet 4 mg PO DIRECTED 03/04/23 03/04/23 History dexamethasone 4 mg tablet 8 mg PO DIRECTED 03/04/23 03/04/23 History lidocaine-prilocaine 2.5 %-2.5 % 1 applic topical DIRECTED PRN 1 03/04/23 03/04/23 History topical cream HR PRIOR TO PORT ACCESS phenazopyridine 200 mg tablet 200 mg PO TID PRN Pain 03/04/23 03/04/23 History prochlorperazine maleate 10 mg 10 mg PO Q6H PRN NAUSEA/VOMITING 03/04/23 03/04/23 History tablet (Compazine) promethazine 25 mg tablet 12.5 mg PO Q6H PRN NAUSEA/VOMITING 03/04/23 03/04/23 History sennosides 8.6 mg tablet 17.2 mg PO TID 03/04/23 03/04/23 History sucralfate 100 mg/mL oral 10 ml PO QID 03/04/23 03/04/23 History suspension (Carafate) umeclidinium 62.5 mcg/actuation 1 inh inhalation DAILY 03/04/23 03/04/23 History blister powder for inhalation (Incruse Ellipta) varenicline 0.5 mg (11)-1 mg (42) 1 ea PO DIRECTED 03/04/23 03/04/23 History tablets in a dose pack (Chantix Starting Month Box) dexamethasone 4 mg tablet 4 mg PO Q6H #40 tabs 03/06/23 Rx Hospital Stay Data Consultations 03/04/23 01:46 ED Decision to Admit Stat 03/04/23 08:00 Consult Gastroenterology Routine Consult Radiation Oncology Routine 03/05/23 08:01 Consult Pain Management Routine 03/05/23 09:00 Consult Patient Rep [Consult Patient Services] Routine 03/05/23 14:37 Consult Palliative Care Routine 03/05/23 19:43 Consult Oncology Routine Diagnostic Imagining Performed 03/03/23 21:00 CT head/brain wo con Stat 03/04/23 04:38 MRI Brain [MR brain wo/w con] Urgent 03/04/23 22:35 CT Abd and Pelvis [CT abd pelvis IV con only] Stat 03/05/23 00:11 MRI Abdomen [MR abdomen wo/w con] Stat 03/06/23 08:27 CT guide rad therapy head Routine Pending Results Patient Have Any Pending Studies at Discharge: No Discharge Instructions Given to Patient (Per Discharging Provider) Please take all medications as instructed on discharge as below. You have been started on a medication called Decadron to help with swelling and head pain. You are being given 1 week, however, your radiation oncologist, Dr. Ariel Charlton may want to extend that in conjunction with your brain radiation. Per palliative care, pain management will include MS Contin which you have already filled and steroids. It is recommended that you follow-up with your current oncologist for a touch base prior to your next cycle of chemotherapy and after hospital discharge to ensure you are still doing well and repeat your lab work. It is recommended that you follow-up with your primary care doctor within 1 week of hospital discharge to ensure you are doing well after returning home. It was a pleasure taking care of you! Please call if you have any questions or problems. You can reach a [facility] hospitalist on duty at [facility] 24 hours a day by calling [phone]. Take care of yourself. Shweta Godinez, DO [facility] Center[facility] Total Time Total Time Spent Total Time Spent (In Minutes): 60
== END 2023-03-06 17:08 | disposition home or self-care (01) | DRG 54 ==
LOC: ED 20:52 → EDINP 03-04 03:34 → 3E 03-04 21:18
DX: Z91.041 Radiographic dye allergy status; G93.6 Cerebral edema; F31.9 Bipolar disorder, unspecified; F90.9 Attention-deficit hyperactivity disorder, unspecified type; I73.00 Raynaud's syndrome without gangrene; Z86.718 Personal history of other venous thrombosis and embolism; C78.6 Secondary malignant neoplasm of retroperitoneum and peritoneum; C79.01 Secondary malignant neoplasm of right kidney and renal pelvis; Z88.1 Allergy status to other antibiotic agents; M79.7 Fibromyalgia; T40.2X5A Adverse effect of other opioids, initial encounter; C79.02 Secondary malignant neoplasm of left kidney and renal pelvis; R13.19 Other dysphagia; F17.210 Nicotine dependence, cigarettes, uncomplicated; K59.03 Drug induced constipation; Y84.2 Radiological procedure and radiotherapy as the cause of abnormal reaction of the patient, or of later complication, without mention of misadventure at the time of the procedure; C79.31 Secondary malignant neoplasm of brain; K20.80 Other esophagitis without bleeding; Z88.0 Allergy status to penicillin; C34.11 Malignant neoplasm of upper lobe, right bronchus or lung; M32.9 Systemic lupus erythematosus, unspecified; D61.810 Antineoplastic chemotherapy induced pancytopenia; Y92.009 Unspecified place in unspecified non-institutional (private) residence as the place of occurrence of the external cause; C79.51 Secondary malignant neoplasm of bone; C79.49 Secondary malignant neoplasm of other parts of nervous system

== ENCOUNTER 2023-04-27 18:01 | Inpatient (IN) ==
--- NOTE | 2023-04-27 18:07 | ED Triage Note ---
Date of Service April 27, 2023 History of Present Illness This patient was briefly evaluated while in triage. An abbreviated physical exam was performed. This patient is a 43-year-old Female who presents to the ED for evaluation of persistent central chest pain. She also reports that she can get warm, cannot swallow, and cannot stay awake. Patient does have a port for IV antibiotics. Patient was just discharged from our facility this past Thursday. The chest pain started this morning. Physical Exam CONSTITUTIONAL: Healthy and well nourished. HEENT: No scleral icterus or conjunctival injection. RESPIRATORY: Clear to auscultation bilaterally with no wheezing, crackles, rhonchi or stridor. CARDIOVASCULAR: Regular rate and rhythm with no murmurs, rubs or gallops. INTEGUMENTARY: No rash or other significant dermatologic conditions noted. HEMATOLOGIC: No ecchymosis or petechiae. PSYCHIATRIC: Positive affect. NEUROLOGIC: No focal neurologic deficits noted. Initial orders for labs and / or imaging were placed and patient was placed in the waiting area until a bed is available. Please see further documentation for the full ED course.
[2023-04-27 18:37] LABS: Hematocrit (blood only) 25.8 % (37.0-47.0); Hemoglobin 8.6 g/dl (12.0-16.0); Mean Corpuscular Hemoglobin 32.7 pg (25.0-34.0); Mean Corpuscular Hgb Conc 33.3 g/dL (32.0-36.0); Mean Corpuscular Volume 98.1 fL (80.0-100.0); Nucleated RBC # (auto) 0.02 K/uL (0.00-0.12); Nucleated RBC % (auto) 0.8 %; Platelet Count 87 K/uL (130-400); RDW Coefficient of Variation 16.5 % (11.5-14.5); RDW Standard Deviation 55.7 fL (36.4-46.3); Red Blood Count 2.63 M/uL (4.20-5.40)
--- NOTE | 2023-04-27 18:42 | XRay Report ---
XR chest 1V portable CLINICAL HISTORY: Chest pain, nonspecific TECHNIQUE: Single frontal radiograph of the chest was obtained. Comparison: Comparison is made to chest radiograph 04/21/2020 FINDINGS: A port catheter is seen. Calcified aortic knob is seen. The lungs are clear. No evidence of pleural e ffusion or pneumothorax. IMPRESSION: No acute chest disease. ACT 112: Negative or not required by law. Electronically signed by: Lei Egde M.D. 04/27/2023 6:40 PM
[2023-04-27 18:55] LABS: Anisocytosis Present; Basophils # (auto) 0.01 K/uL (0.00-0.20); Basophils % (auto) 0.4 %; Eosinophils # (auto) 0.01 K/uL (0.00-0.50); Eosinophils % (auto) 0.4 %; Immature Granulocytes # (auto) 0.03 K/uL (0.01-0.20); Immature Granulocytes % (auto) 1.3 %; Lymphocytes # (auto) 0.73 K/uL (1.20-3.40); Lymphocytes % (auto) 30.4 %; Monocytes # (auto) 0.29 K/uL (0.11-0.59); Monocytes % (auto) 12.1 %; Neutrophils # (auto) 1.33 K/uL (1.40-6.50); Neutrophils % (auto) 55.4 %
[2023-04-27 18:56] LABS: Albumin Level 3.3 gm/dl (3.4-5.0); BUN Creatinine Ratio 11.8 (10-20); Bilirubin,Total 0.6 mg/dl (0.2-1.0); Calcium 9.1 mg/dl (8.6-10.3); Creatinine Clr Calc Pharmacy 112.9 ml/min; Est GFR (African American) 122.4 ml/min; Est GFR (Non-African American) 105.6 ml/min; Globulin 3.3 gm/dl (2.5-4.0); Potassium 3.6 mmol/L (3.5-5.1); Total Protein 6.6 gm/dl (6.0-8.3)
[2023-04-27 19:00] LABS: Troponin I High Sensitivity 2.6 pg/ml (0-14)
[2023-04-27 19:12] LABS: Partial Thromboplastin Ratio 0.8; Partial Thromboplastin Time 23.6 Seconds (21.0-31.0); Prothrombin Time 10.9 Seconds (9.0-12.0)
--- NOTE | 2023-04-27 21:21 | Emergency Department Note ---
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 States the pain in her esophagus area makes it hard for her to swallow and she is really having even difficulty taking her oral pain medication. States he feels thirsty. Denies significant abdominal discomfort or nausea at this point. No fevers reported. Has been using her cefepime antibiotic as prescribed through report without issue with the help of nursing and family. No falls reported. States this is similar to when she was here previously. Has seen GI before and has had dilations in the distant past. Evidently there was some issues with her blood counts recently and her platelets being low and thus this was deferred. Patient states she is again not been doing well since discharge home. PAST MEDICAL HISTORY: As noted above MEDICATIONS: Reviewed home medications SOCIAL HISTORY: History of smoking PHYSICAL EXAM: GENERAL: alert and oriented in no acute distress on stretcher fatigued in appearance Head: normocephalic and atraumatic EYES: No injection, discharge or icterus. NECK: Trachea midline. ENT: Mucous membranes pink and moist. Pharynx without erythema or exudate. No oral plaques noted. LUNGS: Airway patent. No retractions. Breath sounds clear with good air entry bilaterally. HEART: Regular rate and rhythm. Right upper chest port intact. ABDOMEN: Soft and non-tender, without guarding or rebound. SKIN: Acyanotic, warm, dry, without rashes EXTREMITIES: Without swelling, tenderness or deformity NEUROLOGICAL: No focal deficits. No aphasia. No facial droop or slurred speech. EK bpm sinus tachycardia occasional PVC. No acute ST segment elevation or depression noted with a QTc of 498. Inferior lateral T wave flattening. CONTINUOUS CARDIAC MONITORING: was ordered and showed a heart rate of 90s-100s bpm in normal sinus rhythm to sinus tachycardia Patient's laboratory studies and imaging reviewed. Differential includes Cardiac ischemia, aortic dissection, pulmonary embolism, pneumothorax, pneumonia, pericarditis, myocarditis, esophageal rupture, GERD, cholecystitis, pancreatitis, musculoskeletal, as well as other pathologies. IMPRESSION/MEDICAL DECISION MAKING: Reviewed the patient's recent hospitalization and record here. Unfortunate situation. Hospitalized multiple weeks and on cefepime. Given evening dose here. Blood work obtained without severe abnormalities other than some mild neutropenia at this time and chronic anemia. No evidence of acute hepatitis or pancreatitis. Troponin EKG reassuring and I doubt this is cardiac related pain. Chest x-ray completed and reviewed by myself with out significant findings noted. Had similar pain here and has saw GI before for this. Had a distant dilation months ago. Reviewed recent GI notes in the system here today indicated the patient's platelet count prevented EGD. She very much would like to pursue this if at all possible to help with her symptoms though she feel things are getting stuck and having discomfort in her mid upper esophagus. States she did dilation her before and this feels similar. Given some hydration and some IV morphine and she is even having difficulty taking the liquid m orphine. Did discuss with the patient I cannot confirm with GI would wish to proceed with any procedure at this time. While her platelet count does appear improved her neutrophil count is borderline to slightly low but without severe neutropenia. Discussion with the patient and family at bedside she was to stay and see if GI tomorrow would be amenable to possible intervention. In the short-term we will give again some IV fluids and pain control here. DIAGNOSIS: Chest discomfort, lung cancer, esophageal discomfort DISPOSITION: Hospitalist will evaluate Patient was agreeable with this plan. Past Med/Surg History Medical History (Updated 04/27/23 @ 21:56 by John Mccabe M.D.) ADHD Asthma Chronic cough Chronic low back pain Community acquired pneumonia Encounter for pre-operative examination Endometriosis of the uterus, unspecified Pancytopenia Primary adenocarcinoma of upper lobe of right lung (10/03/22) Pseudocholinesterase deficiency Systemic lupus erythematosus Tobacco abuse Surgical History H/O right wrist surgery H/O tubal ligation H/O: hysterectomy History of cholecystectomy Hx of appendectomy S/P bronchoscopy Family History Mother Cancer Breast Grandmother (Maternal) Cancer Lung Social History Smoking Status: Current some day smoker Tobacco Type: Cigarettes Cigarettes Per Day: 1 ppd; Second Hand Exposure: Yes; Do You Dip or Chew Tobacco: No; Hx Alcohol Use: No Hx Substance Use: No Preferred Language: Mohawk Communication Ability: Effective Visual Impairment: No Limitations Hearing Ability: Normal Tent Worker Required: No Beliefs That Will Affect Care: None marital status: Single Current Living Situation: Spouse Current Living Situation Comment: engaged current occupational status: unemployed 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 Feels Safe at Home: Yes Diet: regular during the past year weight has: remained stable Assistive Devices: Oxygen - at Night and Walker Allergies Allergies Allergy/AdvReac Type Severity Reaction Status Date / Time levofloxacin [From Levaquin] Allergy Severe THROAT Verified 04/27/23 21:10 SWELLS SHUT, ITCHY--RASH PER [facility] Penicillins Allergy Severe Anaphylaxis Verified 04/27/23 21:10 clindamycin Allergy Intermediate CAUSED A Verified 04/27/23 21:10 YEAST INFECTION X 6 MONTHS povidone-iodine Allergy Intermediate Rash Verified 04/27/23 21:10 [From Betadine] silver Allergy Intermediate Rash Verified 04/27/23 21:10 [From Tegaderm AG Mesh] bupropion [From Wellbutrin] AdvReac Severe suicidal Verified 04/27/23 21:10 ideation duloxetine AdvReac Severe suicidal Verified 04/27/23 21:10 ideations sulfamethoxazole AdvReac Mild YEAST Verified 04/27/23 21:10 [From Bactrim] INFECTION trimethoprim [From Bactrim] AdvReac Mild YEAST Verified 04/27/23 21:10 INFECTION ANESTHESIA AdvReac Severe PER Uncoded 04/27/23 21:10 [facility]--PSEUDOCHLOINESTERASE---FLAT LINES PLASTIC AdvReac Severe SKIN PEELS Uncoded 04/27/23 21:10 Home Meds Home Medications Medication Instructions Recorded Confirmed albuterol sulfate 2.5 mg/3 mL 2.5 mg inhalation Q4H PRN 03/28/23 04/27/23 (0.083 %) solution for nebulization Shortness Of Breath Or Wheezing albuterol sulfate 90 mcg/actuation 2 puff inhalation Q4H PRN 03/28/23 04/27/23 aerosol inhaler (Ventolin HFA) Shortness Of Breath Or Wheezing benzonatate 100 mg capsule 100 mg PO TID PRN Cough 03/28/23 04/27/23 chlorpromazine 25 mg tablet 25 mg PO QID PRN Hiccups 03/28/23 04/27/23 cyanocobalamin (vitamin B-12) 1,000 mcg IM MONTHLY 03/28/23 04/27/23 1,000 mcg/mL injection solution famotidine 10 mg tablet 10 mg PO BID 03/28/23 04/27/23 fluticasone propionate 230 2 puff inhalation BID 03/28/23 04/27/23 mcg-salmeterol 21 mcg/actuation HFA inhaler (Advair HFA) folic acid 1 mg tablet 1 mg PO DAILY 03/28/23 04/27/23 lorazepam 0.5 mg tablet 0.5 mg PO TID PRN Anxiety 03/28/23 04/27/23 morphine 15 mg immediate release 15 mg PO Q4H PRN Pain 03/28/23 04/27/23 tablet ondansetron HCl 8 mg tablet 8 mg PO TID PRN Nausea And Vomiting 03/28/23 04/27/23 pantoprazole 40 mg tablet,delayed 40 mg PO DAILY 03/28/23 04/27/23 release promethazine 12.5 mg tablet 12.5 mg PO Q6H PRN Nausea And 03/28/23 04/27/23 Vomiting umeclidinium 62.5 mcg/actuation 1 inh inhalation DAILY 03/28/23 04/27/23 blister powder for inhalation (Incruse Ellipta) Previous Rx's Medication Instructions Recorded Magic Mouthwash 300 mL mouthwash 10 ml mucous membrane ACHS 04/03/23 dysphagiea #300 mL fluconazole 100 mg tablet 200 mg PO DAILY #21 tabs 04/24/23 (Diflucan) gabapentin 300 mg capsule 300 mg PO TID 30 days #90 caps 04/24/23 metoprolol tartrate 25 mg tablet 12.5 mg PO BID 30 days #30 tabs 04/24/23 morphine 15 mg tablet,extended 30 mg PO BID 30 days #60 tabs 04/24/23 release morphine concentrate 100 mg/5 mL 10 mg (0.5 mL) PO Q3H PRN pain 15 04/24/23 (20 mg/mL) oral solution days #30 mL nystatin 100,000 unit/mL oral 5 ml PO QID 30 days #600 mL 04/24/23 suspension Results & Data (ED) Vital Signs Vital Signs - 24 hr 04/27/23 18:04 04/27/23 20:44 04/27/23 20:50 Temperature 36.4 C L Temperature Source Oral Pulse Rate 110 H 106 H Pulse Rate [Apical] 106 H Respiratory Rate 18 18 Respiratory Effort / Characteristics Non-Labored Spontaneous Respiratory Depth Normal Respiratory Pattern Regular Blood Pressure 123/82 Blood Pressure [Right Arm] 130/87 Blood Pressure Mean 95 Blood Pressure Mean [Right Arm] 101 Pulse Oximetry 95 91 Oxygen Delivery Method Room Air Room Air Sepsis Recent Fever Within 48 Hours No Sepsis New/Unexplained Change in Mental Status N/A Sepsis Action Taken by Nursing No Action Required Laboratory Data 04/27/23 18:18 04/27/23 18:18 Lab Results 04/27/23 04/27/23 04/27/23 Range/Units 18:18 18:18 18:18 WBC 2.40 L (4.8-10.8) K/ul RBC 2.63 L (4.20-5.40) M/uL Hgb 8.6 L (12.0-16.0) g/dl Hct 25.8 L (37.0-47.0) % MCV 98.1 (80.0-100.0) fL MCH 32.7 (25.0-34.0) pg MCHC 33.3 (32.0-36.0) g/dL RDW Std Deviation 55.7 H (36.4-46.3) fL RDW Coeff of Saritha 16.5 H (11.5-14.5) % Plt Count 87 L (130-400) K/uL MPV 11.0 (9.4-12.4) fL Immature Gran % (Auto) 1.3 % Neut % (Auto) 55.4 % Lymph % (Auto) 30.4 % [place] % (Auto) 12.1 % Eos % (Auto) 0.4 % Baso % (Auto) 0.4 % Neut # (Auto) 1.33 L (1.40-6.50) K/uL Lymph # (Auto) 0.73 L (1.20-3.40) K/uL [place] # (Auto) 0.29 (0.11-0.59) K/uL Eos # (Auto) 0.01 (0.00-0.50) K/uL Baso # (Auto) 0.01 (0.00-0.20) K/uL Immature Gran # (Auto) 0.03 (0.01-0.20) K/uL Absolute Nucleated RBC 0.02 (0.00-0.12) K/uL Nucleated RBC % (auto) 0.8 % Anisocytosis Present PT 10.9 (9.0-12.0) Seconds INR 1.0 (0.9-1.1) APTT 23.6 (21.0-31.0) Seconds PTT Ratio 0.8 Sodium 141 (136-145) mmol/L Potassium 3.6 (3.5-5.1) mmol/L Chloride 107 (98-107) mmol/L Carbon Dioxide 28 (21-32) mmol/L Anion Gap 6 (3-11) BUN 8 (6-23) mg/dl Creatinine 0.68 (0.6-1.2) mg/dl Est Cr Clr Drug Dosing 112.9 ml/min Est GFR ( Amer) 122.4 ml/min Est GFR (Non-Af Amer) 105.6 ml/min BUN/Creatinine Ratio 11.8 (10-20) Glucose 99 (70-99(Fasting)) mg/dl Calcium 9.1 (8.6-10.3) mg/dl Total Bilirubin 0.6 (0.2-1.0) mg/dl AST 12 L (13-39) U/L ALT 9 (7-52) U/L Alkaline Phosphatase 76 (34-104) U/L Troponin I High Sens 2.6 (0-14) pg/ml Total Protein 6.6 (6.0-8.3) gm/dl Albumin 3.3 L (3.4-5.0) gm/dl Globulin 3.3 (2.5-4.0) gm/dl Albumin/Globulin Ratio 1.0 (0.9-2) Lipase 7 L (11-82) U/L Administered Medications Sodium Chloride (Nss) 1,000 mls @ 999 mls/hr IV .Q1H1M ONE Stop: 04/27/23 22:22 Last Admin: 04/27/23 21:28 Dose: 999 mls/hr Documented By: WALI Discontinued Medications Cefepime HCl (Maxipime) 2,000 mg in 20 mls @ 5 mls/min IV NOW STA; Protocol Stop: 04/27/23 21:27 Last Admin: 04/27/23 21:34 Dose: 5 mls/min Documented By: WALI Morphine Sulfate (Morphine Sulfate 4 Mg/Ml 1 Ml Carp\Vial) 4 mg IV NOW STA Stop: 04/27/23 21:23 Last Admin: 04/27/23 21:27 Dose: 4 mg Documented By: WALI Imaging Data Radiologist's Impression: Chest X-Ray 04/27/23 18:07 XR chest 1V portable CLINICAL HISTORY: Chest pain, nonspecific TECHNIQUE: Single frontal radiograph of the chest was obtained. Comparison: Comparison is made to chest radiograph 04/21/2020 FINDINGS: A port catheter is seen. Calcified aortic knob is seen. The lungs are clear. No evidence of pleural effusion or pneumothorax. IMPRESSION: No acute chest disease. ACT 112: Negative or not required by law. Electronically signed by: Lei Edge M.D. 04/27/2023 6:40 PM Discharge Plan Visit Data Chief Complaint: Chest Pain Stated Complaint: HARD TO SWALLOW, TIRED, CHEST PAIN ED Provider: John Mccabe Discharge Problem: Esophageal pain, Primary adenocarcinoma of upper lobe of right lung, Difficulty swallowing, Chest pain Patient Disposition: Being Evaluated by Hospitalist Forms Stand Alone Forms: [facility] Prescriptions Prescriptions: No Action Magic Mouthwash 300 mL mouthwash 10 ml mucous membrane ACHS Qty: 300 5RF ondansetron HCl 8 mg tablet 8 mg PO TID PRN (Reason: Nausea And Vomiting) lorazepam 0.5 mg tablet 0.5 mg PO TID PRN (Reason: Anxiety) pantoprazole 40 mg tablet,delayed release (DR/EC) 40 mg PO DAILY cyanocobalamin (vitamin B-12) 1,000 mcg/mL solution 1,000 mcg IM MONTHLY chlorpromazine 25 mg tablet 25 mg PO QID PRN (Reason: Hiccups) folic acid 1 mg tablet 1 mg PO DAILY albuterol sulfate [Ventolin HFA] 90 mcg/actuation HFA aerosol inhaler 2 puff INHALATION Q4H PRN (Reason: Shortness Of Breath Or Wheezing) morphine 15 mg tablet 15 mg PO Q4H PRN (Reason: Pain) fluticasone propion-salmeterol [Advair HFA] 230-21 mcg/actuation HFA aerosol inhaler 2 puff INHALATION BID Incruse Ellipta 62.5 mcg/actuation blister with device 1 inh INHALATION DAILY albuterol sulfate 2.5 mg /3 mL (0.083 %) Solution For Nebulization 2.5 mg INHALATION Q4H PRN (Reason: Shortness Of Breath Or Wheezing) famotidine 10 mg Tablet 10 mg PO BID promethazine 12.5 mg Tablet 12.5 mg PO Q6H PRN (Reason: Nausea And Vomiting) benzonatate 100 mg Capsule 100 mg PO TID PRN (Reason: Cough) fluconazole [Diflucan] 100 mg Tablet 200 mg PO DAILY Qty: 21 0RF Rx Instructions: STARTED 04/24/23 FOR 11 DAYS. nystatin 100,000 unit/mL Suspension 5 ml PO QID 30 Days Qty: 600 0RF metoprolol tartrate 25 mg Tablet 12.5 mg PO BID 30 Days Qty: 30 0RF morphine concentrate 100 mg/5 mL (20 mg/mL) Solution 10 mg PO Q3H PRN (Reason: pain) 15 Days Qty: 30 0RF Rx Instructions: Please take no more than 0.5ml as needed every 3 hours for breakthrough malignancy pain gabapentin 300 mg Capsule 300 mg PO TID 30 Days Qty: 90 0RF morphine 15 mg tablet extended release 30 mg PO BID 30 Days Qty: 60 0RF Rx Instructions: Please take 30mg twice a day (morning and evening) for baseline control of chronic pain from malignancy Referrals Referrals: Josue Blake MD [Primary Care Provider] -
[2023-04-27] MEDS ORDERED: SODIUM CHLORIDE 0.9% 1,000 ML IV ONE (21:22)
[2023-04-27] MEDS ORDERED: MoRPHine SULFATE 4 MG/ML 1 ML CARP\\VIAL IV STA ×2 (21:22→23:44)
[2023-04-27] MEDS ORDERED: CEFEPIME 2,000 MG/20 ML VIAL IV STA (21:24)
--- NOTE | 2023-04-28 | History & Physical Report ---
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 Esophageal pain Odynophagia and chest pain Ongoing Possible oropharyngeal/oesophageal candidiasis On nystatin and Diflucan We will change Diflucan to IV We will change Protonix and Pepcid to IV N.p.o. IV fluids Placed on IV antiemetics and IV pain meds as needed GI consult in a.m. Follow cardiac serial enzymes and EKG Adenocarcinoma lung with bone and brain mets S/p chemoradiation and steroids Since last chemo on April 02, 2023 Continue home inhalers Follow-up with heme-onc Pancytopenia From chemo Received PRBCs and platelets and Neupogen last admission Currently hemoglobin 8.6 and platelets 87k/ul We will follow labs History of postobstructive pneumonia Continue IV cefepime Chronic conditions Hypertension Prediabetes History of SLE follows with rebrander Cancer pain on narcotics changed to IV History of ADD/mood disorder Ongoing tobacco abuse DVT prophylaxis SCDs for now Disposition Med/telemetry Full code History of Present Illness Chief Complaint: Odynophagia, chest pain Primary Care Provider: Josue Blake MD 43-year-old female with past medical history significant for 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 Patient was recently in the hospital for possible postobstructive pneumonia and rhinovirus infection treated with IV antibiotics currently still on IV cefepime and aslo during the stay had MRI of the brain which showed some improvement and stability of the brain lesions. And also seen by GI for possible esophageal candidiasis versus recurrence of esophageal ulcer /radiation esophagitis and oropharyngeal candidiasis. She was started on nystatin and Diflucan empirically. And oropharyngeal white plaques were resolved. She was started on metoprolol for persistent tachycardia .EGD was not done because of thrombocytopenia and to follow as outpatient and was discharged couple of days ago. Comes back with ongoing odynophagia and chest pain. Says not able to take her medications. Not able to take her's pain meds. Not able to eat anything. Platelets are better in labs today. States 1 more day of IV cefepime left. No fevers. No shortness of breath. No headache. No dizziness. Vision is okay. No runny nose. Has cough. No abdominal pain. Normal bowel and bladder movements. Past medical history is as mentioned above. Past surgical history. Appendectomy. Bronchoscopy. Cholecystectomy. Cystoscopy. Ligation of oviducts. A port placement. Hysterectomy. Repair of bladder defect. Total abdominal hysterectomy with removal of tubes. Social history. 1 pack a day for 33 years. No alcohol use. No drug use. Family history. Maternal aunt had breast cancer. Mother had breast cancer. Allergies Allergy/AdvReac Type Severity Reaction Status Date / Time levofloxacin [From Levaquin] Allergy Severe THROAT Verified 04/27/23 21:10 SWELLS SHUT, ITCHY--RASH PER [facility] Penicillins Allergy Severe Anaphylaxis Verified 04/27/23 21:10 clindamycin Allergy Intermediate CAUSED A Verified 04/27/23 21:10 YEAST INFECTION X 6 MONTHS povidone-iodine Allergy Intermediate Rash Verified 04/27/23 21:10 [From Betadine] silver Allergy Intermediate Rash Verified 04/27/23 21:10 [From Tegaderm AG Mesh] bupropion [From Wellbutrin] AdvReac Severe suicidal Verified 04/27/23 21:10 ideation duloxetine AdvReac Severe suicidal Verified 04/27/23 21:10 ideations sulfamethoxazole AdvReac Mild YEAST Verified 04/27/23 21:10 [From Bactrim] INFECTION trimethoprim [From Bactrim] AdvReac Mild YEAST Verified 04/27/23 21:10 INFECTION ANESTHESIA AdvReac Severe PER Uncoded 04/27/23 21:10 [facility]G--PSEUDOCHLOINESTERASE---FLAT LINES PLASTIC AdvReac Severe SKIN PEELS Uncoded 04/27/23 21:10 Home Medications Medication Instructions Recorded Confirmed Type albuterol sulfate 2.5 mg/3 mL 2.5 mg inhalation Q4H PRN 03/28/23 04/27/23 History (0.083 %) solution for nebulization Shortness Of Breath Or Wheezing albuterol sulfate 90 mcg/actuation 2 puff inhalation Q4H PRN 03/28/23 04/27/23 History aerosol inhaler (Ventolin HFA) Shortness Of Breath Or Wheezing benzonatate 100 mg capsule 100 mg PO TID PRN Cough 03/28/23 04/27/23 History chlorpromazine 25 mg tablet 25 mg PO QID PRN Hiccups 03/28/23 04/27/23 History cyanocobalamin (vitamin B-12) 1,000 mcg IM MONTHLY 03/28/23 04/27/23 History 1,000 mcg/mL injection solution famotidine 10 mg tablet 10 mg PO BID 03/28/23 04/27/23 History fluticasone propionate 230 2 puff inhalation BID 03/28/23 04/27/23 History mcg-salmeterol 21 mcg/actuation HFA inhaler (Advair HFA) folic acid 1 mg tablet 1 mg PO DAILY 03/28/23 04/27/23 History lorazepam 0.5 mg tablet 0.5 mg PO TID PRN Anxiety 03/28/23 04/27/23 History morphine 15 mg immediate release 15 mg PO Q4H PRN Pain 03/28/23 04/27/23 History tablet ondansetron HCl 8 mg tablet 8 mg PO TID PRN Nausea And Vomiting 03/28/23 04/27/23 History pantoprazole 40 mg tablet,delayed 40 mg PO DAILY 03/28/23 04/27/23 History release promethazine 12.5 mg tablet 12.5 mg PO Q6H PRN Nausea And 03/28/23 04/27/23 History Vomiting umeclidinium 62.5 mcg/actuation 1 inh inhalation DAILY 03/28/23 04/27/23 History blister powder for inhalation (Incruse Ellipta) Magic Mouthwash 300 mL mouthwash 10 ml mucous membrane ACHS 04/03/23 04/27/23 Rx dysphagiea #300 mL fluconazole 100 mg tablet 200 mg PO DAILY #21 tabs 04/24/23 04/27/23 Rx (Diflucan) gabapentin 300 mg capsule 300 mg PO TID 30 days #90 caps 04/24/23 04/27/23 Rx metoprolol tartrate 25 mg tablet 12.5 mg PO BID 30 days #30 tabs 04/24/23 04/27/23 Rx morphine 15 mg tablet,extended 30 mg PO BID 30 days #60 tabs 04/24/23 04/27/23 Rx release morphine concentrate 100 mg/5 mL 10 mg (0.5 mL) PO Q3H PRN pain 15 04/24/23 04/27/23 Rx (20 mg/mL) oral solution days #30 mL nystatin 100,000 unit/mL oral 5 ml PO QID 30 days #600 mL 04/24/23 04/27/23 Rx suspension Past Med/Surg History Medical History (Updated 04/27/23 @ 21:56 by John Mccabe M.D.) ADHD Asthma Chronic cough Chronic low back pain Community acquired pneumonia Encounter for pre-operative examination Endometriosis of the uterus, unspecified Pancytopenia Primary adenocarcinoma of upper lobe of right lung (10/03/22) Pseudocholinesterase deficiency Systemic lupus erythematosus Tobacco abuse Surgical History H/O right wrist surgery H/O tubal ligation H/O: hysterectomy History of cholecystectomy Hx of appendectomy S/P bronchoscopy Family History Mother Cancer Breast Grandmother (Maternal) Cancer Lung Social History Smoking Status: Current every day smoker Tobacco Type: Cigarettes Cigarettes Per Day: 1 ppd; Second Hand Exposure: Yes; Do You Dip or Chew Tobacco: No; Tobacco Cessation Education Requested by Patient: No Hx Alcohol Use: No Hx Substance Use: No Preferred Language: Romanian Communication Ability: Effective Visual Impairment: No Limitations Hearing Ability: Normal 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 Beliefs That Will Affect Care: None marital status: Single Current Living Situation: Spouse Current Living Situation Comment: engaged current occupational status: unemployed 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 ENT- oropharynx clear Neck- supple, no JVD. Lungs- clear to auscultation no wheezing or crackles. Heart- regular rhythm; no murmur, no gallop, a port seen on right side Abdomen- normal bowel sounds, soft, nontender, no distension Extremities- no pretibial edema, no erythema Neuro- alert, oriented x 3; PERRL, no facial palsy; no dysarthria; Skin- warm & dry Results & Data Results & Data Vital Signs (Past 12 Hours) Vital Signs Temp Pulse Pulse Resp BP BP Pulse Ox 04/27/23 22:40 87 L 04/27/23 23:00 98 H 18 126/94 98 04/27/23 20:50 106 H 04/27/23 20:44 106 H 18 130/87 91 04/27/23 18:04 36.4 C L 110 H 18 123/82 95 O2 Del Method O2 Flow Rate 04/27/23 22:40 0 04/27/23 23:00 Nasal Cannula 2 04/27/23 20:50 04/27/23 20:44 Room Air 04/27/23 18:04 Room Air Diagnostic Findings Laboratory Results WBC 2.40 K/ul (4.8-10.8) L 04/27/23 18:18 RBC 2.63 M/uL (4.20-5.40) L 04/27/23 18:18 Hgb 8.6 g/dl (12.0-16.0) L 04/27/23 18:18 Hct 25.8 % (37.0-47.0) L 04/27/23 18:18 MCV 98.1 fL (80.0-100.0) 04/27/23 18:18 MCH 32.7 pg (25.0-34.0) 04/27/23 18:18 MCHC 33.3 g/dL (32.0-36.0) 04/27/23 18:18 RDW Std Deviation 55.7 fL (36.4-46.3) H 04/27/23 18:18 RDW Coeff of Saritha 16.5 % (11.5-14.5) H 04/27/23 18:18 Plt Count 87 K/uL (130-400) L 04/27/23 18:18 MPV 11.0 fL (9.4-12.4) 04/27/23 18:18 Immature Gran % (Auto) 1.3 % 04/27/23 18:18 Neut % (Auto) 55.4 % 04/27/23 18:18 Lymph % (Auto) 30.4 % 04/27/23 18:18 [place] % (Auto) 12.1 % 04/27/23 18:18 Eos % (Auto) 0.4 % 04/27/23 18:18 Baso % (Auto) 0.4 % 04/27/23 18:18 Neut # (Auto) 1.33 K/uL (1.40-6.50) L 04/27/23 18:18 Lymph # (Auto) 0.73 K/uL (1.20-3.40) L 04/27/23 18:18 [place] # (Auto) 0.29 K/uL (0.11-0.59) 04/27/23 18:18 Eos # (Auto) 0.01 K/uL (0.00-0.50) 04/27/23 18:18 Baso # (Auto) 0.01 K/uL (0.00-0.20) 04/27/23 18:18 Immature Gran # (Auto) 0.03 K/uL (0.01-0.20) 04/27/23 18:18 Absolute Nucleated RBC 0.02 K/uL (0.00-0.12) 04/27/23 18:18 Nucleated RBC % (auto) 0.8 % 04/27/23 18:18 Anisocytosis Present 04/27/23 18:18 PT 10.9 Seconds (9.0-12.0) 04/27/23 18:18 INR 1.0 (0.9-1.1) 04/27/23 18:18 APTT 23.6 Seconds (21.0-31.0) 04/27/23 18:18 PTT Ratio 0.8 04/27/23 18:18 Sodium 141 mmol/L (136-145) 04/27/23 18:18 Potassium 3.6 mmol/L (3.5-5.1) 04/27/23 18:18 Chloride 107 mmol/L (98-107) 04/27/23 18:18 Carbon Dioxide 28 mmol/L (21-32) 04/27/23 18:18 Anion Gap 6 (3-11) 04/27/23 18:18 BUN 8 mg/dl (6-23) 04/27/23 18:18 Creatinine 0.68 mg/dl (0.6-1.2) 04/27/23 18:18 Est Cr Clr Drug Dosing 112.9 ml/min 04/27/23 18:18 Est GFR ( Amer) 122.4 ml/min 04/27/23 18:18 Est GFR (Non-Af Amer) 105.6 ml/min 04/27/23 18:18 BUN/Creatinine Ratio 11.8 (10-20) 04/27/23 18:18 Glucose 99 mg/dl (70-99(Fasting)) 04/27/23 18:18 Calcium 9.1 mg/dl (8.6-10.3) 04/27/23 18:18 Total Bilirubin 0.6 mg/dl (0.2-1.0) 04/27/23 18:18 AST 12 U/L (13-39) L 04/27/23 18:18 ALT 9 U/L (7-52) 04/27/23 18:18 Alkaline Phosphatase 76 U/L (34-104) 04/27/23 18:18 Troponin I High Sens 2.6 pg/ml (0-14) 04/27/23 18:18 Total Protein 6.6 gm/dl (6.0-8.3) 04/27/23 18:18 Albumin 3.3 gm/dl (3.4-5.0) L 04/27/23 18:18 Globulin 3.3 gm/dl (2.5-4.0) 04/27/23 18:18 Albumin/Globulin Ratio 1.0 (0.9-2) 04/27/23 18:18 Lipase 7 U/L (11-82) L 04/27/23 18:18 Impressions Chest X-Ray 04/27/23 18:07 XR chest 1V portable CLINICAL HISTORY: Chest pain, nonspecific TECHNIQUE: Single frontal radiograph of the chest was obtained. Comparison: Comparison is made to chest radiograph 04/21/2020 FINDINGS: A port catheter is seen. Calcified aortic knob is seen. The lungs are clear. No evidence of pleural effusion or pneumothorax. IMPRESSION: No acute chest disease. ACT 112: Negative or not required by law. Electronically signed by: Lei Edge M.D. 04/27/2023 6:40 PM Code Status & VTE Plan VTE Prophylaxis Plan VTE Prophylaxis will be ordered: Yes
[2023-04-28] MEDS ORDERED: ALBUTEROL HFA 8 GM INHALER INH PRN (01:33)
[2023-04-28] MEDS ORDERED: ALBUTEROL 0.083% NEBU SOLN 3 ML VIAL INH PRN (01:33)
[2023-04-28] MEDS ORDERED: LORazepam 0.5 MG TAB PO PRN (01:33)
[2023-04-28] MEDS ORDERED: BENZONATATE 100 MG CAPSULE PO PRN (01:33)
[2023-04-28] MEDS ORDERED: NITROGLYCERIN SL 0.4 MG/TAB TAB SL PRN (01:33)
[2023-04-28] MEDS: D5W AND NSS 1,000 ML IV SCH ×2 (04:04→13:56)
[2023-04-28] MEDS: MoRPHine SULFATE 4 MG/ML 1 ML CARP\\VIAL IV PRN ×5 (04:09→21:18)
[2023-04-28 06:09] LABS: Hematocrit (blood only) 22.6 % (37.0-47.0); Hemoglobin 7.5 g/dl (12.0-16.0); Mean Corpuscular Hemoglobin 32.9 pg (25.0-34.0); Mean Corpuscular Hgb Conc 33.2 g/dL (32.0-36.0); Mean Corpuscular Volume 99.1 fL (80.0-100.0); Mean Platelet Volume 10.7 fL (9.4-12.4); Platelet Count 76 K/uL (130-400); RDW Coefficient of Variation 16.9 % (11.5-14.5); RDW Standard Deviation 57.9 fL (36.4-46.3); Red Blood Count 2.28 M/uL (4.20-5.40); White Blood Count 1.74 K/ul (4.8-10.8)
[2023-04-28 06:20] LABS: BUN Creatinine Ratio 12.7 (10-20); Calcium 8.4 mg/dl (8.6-10.3); Creatinine Clr Calc Pharmacy 120.2 ml/min; Est GFR (African American) 125.6 ml/min; Est GFR (Non-African American) 108.3 ml/min; Magnesium 1.6 mg/dl (1.7-2.4); Potassium 3.3 mmol/L (3.5-5.1)
[2023-04-28 07:07] LABS: Basophils # (auto) 0.01 K/uL (0.00-0.20); Basophils % (auto) 0.6 %; Eosinophils # (auto) 0.01 K/uL (0.00-0.50); Eosinophils % (auto) 0.6 %; Immature Granulocytes # (auto) 0.02 K/uL (0.01-0.20); Immature Granulocytes % (auto) 1.1 %; Lymphocytes # (auto) 0.65 K/uL (1.20-3.40); Lymphocytes % (auto) 37.4 %; Monocytes # (auto) 0.22 K/uL (0.11-0.59); Monocytes % (auto) 12.6 %; Neutrophils # (auto) 0.83 K/uL (1.40-6.50); Neutrophils % (auto) 47.7 %; Polychromasia 1+
[2023-04-28] MEDS: MAGNESIUM SULFATE / D5W 1 GM/100 ML BAG IV SCH ×2 (08:03→11:28)
[2023-04-28] MEDS: POTASSIUM CHLORIDE / WTR 10 MEQ/100 ML PLCT IV SCH ×3 (08:03→12:44)
--- NOTE | 2023-04-28 08:05 | Electrocardiogram Report ---
Test Reason : Blood Pressure : / mmHG Vent. Rate : 096 BPM Atrial Rate : 096 BPM P-R Int : 150 ms QRS Dur : 084 ms QT Int : 384 ms P-R-T Axes : 045 -02 011 degrees QTc Int : 485 ms Normal sinus rhythm When compared with ECG of 21-APR-2023 05:24, Vent. rate has decreased BY 48 BPM Confirmed by Stephen Hudson ([id number]) on 04/28/2023 8:04:50 AM Referred By: REFERRED SELF Confirmed By:Christiano Hudson
[2023-04-28] MEDS: GABAPENTIN 300 MG CAP PO SCH ×3 (08:22→21:01)
[2023-04-28] MEDS: PANTOprazole 40 MG in SYRINGE 0 ML IV SCH ×2 (08:22→21:01)
[2023-04-28] MEDS: METOPROLOL TARTRATE 25 MG TAB PO SCH ×2 (08:22→21:04)
[2023-04-28] MEDS: FAMOTIDINE 20 MG in SYRINGE 3 ML IV SCH ×2 (08:22→21:18)
[2023-04-28] MEDS: FIRST - Mouthwash BLM 119 ML MT SCH ×4 (08:31→21:01)
[2023-04-28] MEDS: NYSTATIN SUSP 500,000 U/5 ML UDC PO SCH ×4 (08:31→21:01)
[2023-04-28] MEDS ORDERED: ONDANSETRON INJ 2 MG/ML 2 ML VIAL ONE (08:46)
[2023-04-28] MEDS ORDERED: MIDAZOLAM HCL 1 MG/ML 2ML VIAL ONE (08:46)
[2023-04-28] MEDS ORDERED: PROPOFOL IV EMULSION 10 MG/ML 20 ML VIAL IV ONE ×2 (08:46→08:52)
[2023-04-28] MEDS ORDERED: LIDOCAINE 2% 2 ML VIAL/AMP(20MG/ML) INFIL ONE (08:46)
--- NOTE | 2023-04-28 08:48 | Gastrointestinal Consultation ---
Date of Consultation April 28, 2023 Assessment & Plan (1) Difficulty swallowing: (2) Esophageal pain: Plan EGD this morning by Dr. Zoe Traore. Further recommendations to follow. Supervising Physician Co-Signing Physician Notes I personally saw and evaluated the patient with HAIM Morton on 04/28/2023 and agree with her findings and plan of care. On exam abdomen is soft and non-tender. EGD completed this AM with findings of a very large and deep cratered esophageal ulcer right below the UES in the upper esophagus. There was a hole within the ulcer that is either a small contained perforation or a fistula. CT chest with gastrograffin completed this morning without evidence of perforation or fistula seen but this may be a small closed off fistula or perforation. Either way, magalie ent is not tolerating PO intake at home due to severe esophageal pain from this ulcer. This was present on EGD in December but looks worse today and appears deeper. Recommend PPI 40 mg BID, Carafate 1 gram QID for a month, and magic mouthwash. I spoke with her oncologist, Dr. Jimenez, and she is going to need some form of nutrition and access to take her meds which is most likely going to have to be a surgically placed PEG tube since she is not taking in enough by mouth and explained shes having difficulty even getting pills down now. Can not place PEG tube endoscopically as we can not pull the peg through the esophagus with this deep cratered ulcer so it would need placed surgically directly into the stomach. Would recommend a surgical consult to discuss. We will also arrange an outpatient EGD in 4 weeks to reassess the ulcer and to get biopsies to ensure this is not a malignant ulcer (which is concerning that is has not healed in 3 months). Biopsies were not taken during procedure today due to concern for the perforation. Do NOT place an NG tube with that ulcer. She can have some liquids by mouth today until access is figured out. Zoe Traore, DO Gastroenterology and Hepatology History of Present Illness Reason for Consultation: odonophagia Requesting Physician: Dr. Avila Attending Physician: Aprli Freeman MD History of Present Illness Ms. Ritchie Lowe is a 43 yr old female pt of Dr. Blake and Dr. Phillip (hem/onc) w hx of adenocarcinoma with brain/bone mets also asthma, HTN, SLE, chronic pain, and prior endometrial cancer S/P surgery. She presented to the ED for pain on swallowing. Her lung cancer was dx'ed in August of this year. Her chemo has been paused since Feb due to neutropenia, thrombocytopenia and poor po intake secondary to the odynophagia. She previously underwent EGD in December w an esophageal ulcer thought secondary to radiation. She denies any CP between swallowing but says it hurts w every swallow, "always." No black or red BMs, no vomiting. She is maintained on daily Pantoprazole 40, Famotidine 10mg BID and is currently on a course of Diflucan po. On arrival, CXR w/o acute abnormalities. ANC is 800, platelets 76. Allergies Allergy/AdvReac Type Severity Reaction Status Date / Time levofloxacin [From Levaquin] Allergy Severe THROAT Verified 04/28/23 09:13 SWELLS SHUT, ITCHY--RASH PER [facility] Penicillins Allergy Severe Anaphylaxis Verified 04/28/23 09:13 clindamycin Allergy Intermediate CAUSED A Verified 04/28/23 09:13 YEAST INFECTION X 6 MONTHS povidone-iodine Allergy Intermediate Rash Verified 04/28/23 09:13 [From Betadine] silver Allergy Intermediate Rash Verified 04/28/23 09:13 [From Tegaderm AG Mesh] bupropion [From Wellbutrin] AdvReac Severe suicidal Verified 04/28/23 09:13 ideation duloxetine AdvReac Severe suicidal Verified 04/28/23 09:13 ideations sulfamethoxazole AdvReac Mild YEAST Verified 04/28/23 09:13 [From Bactrim] INFECTION trimethoprim [From Bactrim] AdvReac Mild YEAST Verified 04/28/23 09:13 INFECTION ANESTHESIA AdvReac Severe PER Uncoded 04/28/23 09:13 GMG--PSEUDOCHLOINESTERASE---FLAT LINES PLASTIC AdvReac Severe SKIN PEELS Uncoded 04/28/23 09:13 Home Medications Medication Instructions Recorded Confirmed Type albuterol sulfate 2.5 mg/3 mL 2.5 mg inhalation Q4H PRN 03/28/23 04/27/23 History (0.083 %) solution for nebulization Shortness Of Breath Or Wheezing albuterol sulfate 90 mcg/actuation 2 puff inhalation Q4H PRN 03/28/23 04/27/23 History aerosol inhaler (Ventolin HFA) Shortness Of Breath Or Wheezing benzonatate 100 mg capsule 100 mg PO TID PRN Cough 03/28/23 04/27/23 History chlorpromazine 25 mg tablet 25 mg PO QID PRN Hiccups 03/28/23 04/27/23 History cyanocobalamin (vitamin B-12) 1,000 mcg IM MONTHLY 03/28/23 04/27/23 History 1,000 mcg/mL injection solution famotidine 10 mg tablet 10 mg PO BID 03/28/23 04/27/23 History fluticasone propionate 230 2 puff inhalation BID 03/28/23 04/27/23 History mcg-salmeterol 21 mcg/actuation HFA inhaler (Advair HFA) folic acid 1 mg tablet 1 mg PO DAILY 03/28/23 04/27/23 History lorazepam 0.5 mg tablet 0.5 mg PO TID PRN Anxiety 03/28/23 04/27/23 History morphine 15 mg immediate release 15 mg PO Q4H PRN Pain 03/28/23 04/27/23 History tablet ondansetron HCl 8 mg tablet 8 mg PO TID PRN Nausea And Vomiting 03/28/23 04/27/23 History pantoprazole 40 mg tablet,delayed 40 mg PO DAILY 03/28/23 04/27/23 History release promethazine 12.5 mg tablet 12.5 mg PO Q6H PRN Nausea And 03/28/23 04/27/23 History Vomiting umeclidinium 62.5 mcg/actuation 1 inh inhalation DAILY 03/28/23 04/27/23 History blister powder for inhalation (Incruse Ellipta) Magic Mouthwash 300 mL mouthwash 10 ml mucous membrane ACHS 04/03/23 04/27/23 Rx dysphagiea #300 mL fluconazole 100 mg tablet 200 mg PO DAILY #21 tabs 04/24/23 04/27/23 Rx (Diflucan) gabapentin 300 mg capsule 300 mg PO TID 30 days #90 caps 04/24/23 04/27/23 Rx metoprolol tartrate 25 mg tablet 12.5 mg PO BID 30 days #30 tabs 04/24/23 04/27/23 Rx morphine 15 mg tablet,extended 30 mg PO BID 30 days #60 tabs 04/24/23 04/27/23 Rx release morphine concentrate 100 mg/5 mL 10 mg (0.5 mL) PO Q3H PRN pain 15 04/24/23 04/27/23 Rx (20 mg/mL) oral solution days #30 mL nystatin 100,000 unit/mL oral 5 ml PO QID 30 days #600 mL 04/24/23 04/27/23 Rx suspension Patient History Medical History ADHD Asthma Chronic cough Chronic low back pain Community acquired pneumonia Encounter for pre-operative examination Endometriosis of the uterus, unspecified Pancytopenia Primary adenocarcinoma of upper lobe of right lung (10/03/22) Pseudocholinesterase deficiency Systemic lupus erythematosus Tobacco abuse Surgical History H/O right wrist surgery H/O tubal ligation H/O: hysterectomy History of cholecystectomy Hx of appendectomy S/P bronchoscopy Family History Mother Cancer Breast Grandmother (Maternal) Cancer Lung Social History Smoking Status: Current every day smoker Tobacco Type: Cigarettes Cigarettes Per Day: 1 ppd; Second Hand Exposure: Yes; Do You Dip or Chew Tobacco: No; Tobacco Cessation Education Requested by Patient: No Hx Alcohol Use: No Hx Substance Use: No Preferred Language: Cambodian Communication Ability: Effective Visual Impairment: No Limitations Hearing Ability: Normal Linesperson Required: No Beliefs That Will Affect Care: None marital status: Single Current Living Situation: Spouse Current Living Situation Comment: engaged current occupational status: unemployed 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 Other Information That Helps Us Care for You: No Feels Safe at Home: Yes Safety Concerns: Feels Safe At This Time Diet: regular during the past year weight has: remained stable Assistive Devices: Oxygen - at Night Review of Systems Review of Systems: ROS: Gen: + weakness, weight loss; denies fevers Eyes: No eye redness, or pain, no recent vision changes Resp: No SOB, no cough Cardio: No palpitations/irregular beats, no chest pain GI: As per HPI otherwise (-) : Denies pain on urination Skin: No jaundice, itching or new rashes Physical Exam Constitutional: WD/WN, vitals as above Eyes: PERRL, conjunctivae normal, anicteric sclerae ENMT: external ear and nose normal, oropharynx normal Neck: trachea midline, no thyromegaly Respiratory: normal respiratory effort, lungs clear to auscultation Cardiovascular: RRR, no murmur, no edema Chest (Breasts): Additional Comments: Access port in place onthe right side of the chest. Gastrointestinal (Abdomen): normal bowel sounds, soft, nontender, no hepatosplenomegaly Skin: no rashes, warm and dry Neurologic: PERRL, EOMI, accommodation nl, no face palsy, no dysarthria Psychiatric: A+Ox3, euthymic affect Lymphatic: no cervical or axillary lymphadenopathy Results & Data Vital Signs (Past 12 Hours) Vital Signs Temp Pulse Pulse Pulse Resp BP Pulse Ox 04/28/23 08:05 36.8 C 91 H 18 97/63 L 96 04/28/23 04:33 04/28/23 04:18 36.8 C 101 H 12 130/69 95 04/28/23 01:00 103 H 16 123/82 95 04/28/23 00:30 99 H 04/27/23 22:40 87 L 04/27/23 23:00 98 H 18 126/94 98 04/27/23 20:50 106 H O2 Del Method O2 Flow Rate 04/28/23 08:05 Nasal Cannula 2 04/28/23 04:33 Nasal Cannula 2 04/28/23 04:18 Nasal Cannula 2 04/28/23 01:00 Room Air 04/28/23 00:30 04/27/23 22:40 0 04/27/23 23:00 Nasal Cannula 2 04/27/23 20:50 Diagnostic Findings WBC 1.7, Hb 7.5, Hct 27.6, Plts 76, Na 140, K 3.3, Cl 108, CO2 26, BUN 8, Cr 0.6, glucose 107.
[2023-04-28] MEDS ORDERED: UMECLIDINIUM BROMIDE 62.5MCG/BLISTER 7 PUFFS/INHALER INH SCH (09:00)
[2023-04-28] MEDS ORDERED: FOLIC ACID 1 MG TAB PO SCH (09:00)
[2023-04-28] MEDS ORDERED: CEFEPIME 2,000 MG in SYRINGE 0 ML IV SCH (09:00)
[2023-04-28] MEDS ORDERED: FLUTICASONE/VILANTEROL 200/25MCG 14 PUFFS/INHALER INH SCH (09:00)
[2023-04-28] MEDS ORDERED: FLUCONAZOLE 200 MG/100 ML BAG IV SCH (09:00)
--- NOTE | 2023-04-28 09:02 | History & Physical Report ---
Date of Service April 28, 2023 Assessment & Plan (1) Difficulty swallowing: Plan: Proceed with EGD today. Admission and Anticipated Discharge Date Admission Date: April 27, 2023 History of Present Illness Chief Complaint: odynophagia Primary Care Provider: Josue Blake MD 43 y/o F with history of metastatic lung cancer to brain here today for EGD for odynophagia/dysphagia. Allergies Allergy/AdvReac Type Severity Reaction Status Date / Time levofloxacin [From Levaquin] Allergy Severe THROAT Verified 04/27/23 21:10 SWELLS SHUT, ITCHY--RASH PER [facility] Penicillins Allergy Severe Anaphylaxis Verified 04/27/23 21:10 clindamycin Allergy Intermediate CAUSED A Verified 04/27/23 21:10 YEAST INFECTION X 6 MONTHS povidone-iodine Allergy Intermediate Rash Verified 04/27/23 21:10 [From Betadine] silver Allergy Intermediate Rash Verified 04/27/23 21:10 [From Tegaderm AG Mesh] bupropion [From Wellbutrin] AdvReac Severe suicidal Verified 04/27/23 21:10 ideation duloxetine AdvReac Severe suicidal Verified 04/27/23 21:10 ideations sulfamethoxazole AdvReac Mild YEAST Verified 04/27/23 21:10 [From Bactrim] INFECTION trimethoprim [From Bactrim] AdvReac Mild YEAST Verified 04/27/23 21:10 INFECTION ANESTHESIA AdvReac Severe PER Uncoded 04/27/23 21:10 [facility]--PSEUDOCHLOINESTERASE---FLAT LINES PLASTIC AdvReac Severe SKIN PEELS Uncoded 04/27/23 21:10 Home Medications Medication Instructions Recorded Confirmed Type albuterol sulfate 2.5 mg/3 mL 2.5 mg inhalation Q4H PRN 03/28/23 04/27/23 History (0.083 %) solution for nebulization Shortness Of Breath Or Wheezing albuterol sulfate 90 mcg/actuation 2 puff inhalation Q4H PRN 03/28/23 04/27/23 History aerosol inhaler (Ventolin HFA) Shortness Of Breath Or Wheezing benzonatate 100 mg capsule 100 mg PO TID PRN Cough 03/28/23 04/27/23 History chlorpromazine 25 mg tablet 25 mg PO QID PRN Hiccups 03/28/23 04/27/23 History cyanocobalamin (vitamin B-12) 1,000 mcg IM MONTHLY 03/28/23 04/27/23 History 1,000 mcg/mL injection solution famotidine 10 mg tablet 10 mg PO BID 03/28/23 04/27/23 History fluticasone propionate 230 2 puff inhalation BID 03/28/23 04/27/23 History mcg-salmeterol 21 mcg/actuation HFA inhaler (Advair HFA) folic acid 1 mg tablet 1 mg PO DAILY 03/28/23 04/27/23 History lorazepam 0.5 mg tablet 0.5 mg PO TID PRN Anxiety 03/28/23 04/27/23 History morphine 15 mg immediate release 15 mg PO Q4H PRN Pain 03/28/23 04/27/23 History tablet ondansetron HCl 8 mg tablet 8 mg PO TID PRN Nausea And Vomiting 03/28/23 04/27/23 History pantoprazole 40 mg tablet,delayed 40 mg PO DAILY 03/28/23 04/27/23 History release promethazine 12.5 mg tablet 12.5 mg PO Q6H PRN Nausea And 03/28/23 04/27/23 History Vomiting umeclidinium 62.5 mcg/actuation 1 inh inhalation DAILY 03/28/23 04/27/23 History blister powder for inhalation (Incruse Ellipta) Magic Mouthwash 300 mL mouthwash 10 ml mucous membrane ACHS 04/03/23 04/27/23 Rx dysphagiea #300 mL fluconazole 100 mg tablet 200 mg PO DAILY #21 tabs 04/24/23 04/27/23 Rx (Diflucan) gabapentin 300 mg capsule 300 mg PO TID 30 days #90 caps 04/24/23 04/27/23 Rx metoprolol tartrate 25 mg tablet 12.5 mg PO BID 30 days #30 tabs 04/24/23 04/27/23 Rx morphine 15 mg tablet,extended 30 mg PO BID 30 days #60 tabs 04/24/23 04/27/23 Rx release morphine concentrate 100 mg/5 mL 10 mg (0.5 mL) PO Q3H PRN pain 15 04/24/23 04/27/23 Rx (20 mg/mL) oral solution days #30 mL nystatin 100,000 unit/mL oral 5 ml PO QID 30 days #600 mL 04/24/23 04/27/23 Rx suspension Past Med/Surg History Medical History ADHD Asthma Chronic cough Chronic low back pain Community acquired pneumonia Encounter for pre-operative examination Endometriosis of the uterus, unspecified Pancytopenia Primary adenocarcinoma of upper lobe of right lung (10/03/22) Pseudocholinesterase deficiency Systemic lupus erythematosus Tobacco abuse Surgical History H/O right wrist surgery H/O tubal ligation H/O: hysterectomy History of cholecystectomy Hx of appendectomy S/P bronchoscopy Family History Mother Cancer Breast Grandmother (Maternal) Cancer Lung Social History Smoking Status: Current every day smoker Tobacco Type: Cigarettes Cigarettes Per Day: 1 ppd; Second Hand Exposure: Yes; Do You Dip or Chew Tobacco: No; Tobacco Cessation Education Requested by Patient: No Hx Alcohol Use: No Hx Substance Use: No Preferred Language: Citizen Of [place] Communication Ability: Effective Visual Impairment: No Limitations Hearing Ability: Normal Paraffiner Required: No Beliefs That Will Affect Care: None marital status: Single Current Living Situation: Spouse Current Living Situation Comment: engaged current occupational status: unemployed 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 Other Information That Helps Us Care for You: No Feels Safe at Home: Yes Safety Concerns: Feels Safe At This Time Diet: regular during the past year weight has: remained stable Assistive Devices: Oxygen - at Night Review of Systems All systems reviewed & are unremarkable except as noted in HPI & below Physical Exam Constitutional: WD/WN, vitals as above Respiratory: normal respiratory effort, lungs clear to auscultation Cardiovascular: RRR, no murmur, no edema Gastrointestinal (Abdomen): normal bowel sounds, soft, nontender, no hepatosplenomegaly Psychiatric: A+Ox3, euthymic affect Results & Data Vital Signs (Past 12 Hours) Vital Signs Temp Pulse Pulse Pulse Resp BP Pulse Ox 04/28/23 08:05 36.8 C 91 H 18 97/63 L 96 04/28/23 04:33 04/28/23 04:18 36.8 C 101 H 12 130/69 95 04/28/23 01:00 103 H 16 123/82 95 04/28/23 00:30 99 H 04/27/23 22:40 87 L 04/27/23 23:00 98 H 18 126/94 98 O2 Del Method O2 Flow Rate 04/28/23 08:05 Nasal Cannula 2 04/28/23 04:33 Nasal Cannula 2 04/28/23 04:18 Nasal Cannula 2 04/28/23 01:00 Room Air 04/28/23 00:30 04/27/23 22:40 0 04/27/23 23:00 Nasal Cannula 2 Code Status & VTE Plan VTE Prophylaxis Plan VTE Prophylaxis will be ordered: Yes
[2023-04-28] MEDS ORDERED: ATROPINE SULFATE 0.1 MG/ML 10ML SYR IV PRN (09:20)
[2023-04-28] MEDS ORDERED: ePHEDrine sulfate 50 MG/ML AMP IV PRN (09:20)
--- NOTE | 2023-04-28 09:20 | Anesthesiology Consultation ---
Date of Service April 28, 2023 Assessment & Plan Chart Review Chart Review: Acceptable Risk for Surgery and Patient NOT seen in Pre Admission Testing Consults Requested none ASA ASA4 Proposed Anesthesia Anesthesia Type: MAC History Surgery Operation Date: 04/28/23 16:30 Proposed Procedures p Esophagogastroduodenoscopy León Traore, Height/Weight Height: 5 ft 4 in Weight: 86.8 kg Allergies Allergy/AdvReac Type Severity Reaction Status Date / Time levofloxacin [From Levaquin] Allergy Severe THROAT Verified 04/28/23 09:13 SWELLS SHUT, ITCHY--RASH PER [facility] Penicillins Allergy Severe Anaphylaxis Verified 04/28/23 09:13 clindamycin Allergy Intermediate CAUSED A Verified 04/28/23 09:13 YEAST INFECTION X 6 MONTHS povidone-iodine Allergy Intermediate Rash Verified 04/28/23 09:13 [From Betadine] silver Allergy Intermediate Rash Verified 04/28/23 09:13 [From Tegaderm AG Mesh] bupropion [From Wellbutrin] AdvReac Severe suicidal Verified 04/28/23 09:13 ideation duloxetine AdvReac Severe suicidal Verified 04/28/23 09:13 ideations sulfamethoxazole AdvReac Mild YEAST Verified 04/28/23 09:13 [From Bactrim] INFECTION trimethoprim [From Bactrim] AdvReac Mild YEAST Verified 04/28/23 09:13 INFECTION ANESTHESIA AdvReac Severe PER Uncoded 04/28/23 09:13 GMG--PSEUDOCHLOINESTERASE---FLAT LINES PLASTIC AdvReac Severe SKIN PEELS Uncoded 04/28/23 09:13 Medications Home Medications Medication Instructions Recorded Confirmed Last Taken albuterol sulfate 2.5 mg/3 mL 2.5 mg inhalation Q4H PRN 03/28/23 04/27/23 04/04/23 (0.083 %) solution for nebulization Shortness Of Breath Or Wheezing albuterol sulfate 90 mcg/actuation 2 puff inhalation Q4H PRN 03/28/23 04/27/23 04/04/23 aerosol inhaler (Ventolin HFA) Shortness Of Breath Or Wheezing benzonatate 100 mg capsule 100 mg PO TID PRN Cough 03/28/23 04/27/23 Unknown chlorpromazine 25 mg tablet 25 mg PO QID PRN Hiccups 03/28/23 04/27/23 Unknown cyanocobalamin (vitamin B-12) 1,000 mcg IM MONTHLY 03/28/23 04/27/23 Unknown 1,000 mcg/mL injection solution famotidine 10 mg tablet 10 mg PO BID 03/28/23 04/27/23 04/26/23 fluticasone propionate 230 2 puff inhalation BID 03/28/23 04/27/23 04/26/23 mcg-salmeterol 21 mcg/actuation HFA inhaler (Advair HFA) folic acid 1 mg tablet 1 mg PO DAILY 03/28/23 04/27/23 04/26/23 lorazepam 0.5 mg tablet 0.5 mg PO TID PRN Anxiety 03/28/23 04/27/23 04/04/23 morphine 15 mg immediate release 15 mg PO Q4H PRN Pain 03/28/23 04/27/23 Unknown tablet ondansetron HCl 8 mg tablet 8 mg PO TID PRN Nausea And Vomiting 03/28/23 04/27/23 Unknown pantoprazole 40 mg tablet,delayed 40 mg PO DAILY 03/28/23 04/27/23 04/26/23 release promethazine 12.5 mg tablet 12.5 mg PO Q6H PRN Nausea And 03/28/23 04/27/23 Unk nown Vomiting umeclidinium 62.5 mcg/actuation 1 inh inhalation DAILY 03/28/23 04/27/23 blister powder for inhalation (Incruse Ellipta) Magic Mouthwash 300 mL mouthwash 10 ml mucous membrane ACHS 04/03/23 04/27/23 04/26/23 dysphagiea #300 mL fluconazole 100 mg tablet 200 mg PO DAILY #21 tabs 04/24/23 04/27/23 04/26/23 (Diflucan) gabapentin 300 mg capsule 300 mg PO TID 30 days #90 caps 04/24/23 04/27/23 04/26/23 metoprolol tartrate 25 mg tablet 12.5 mg PO BID 30 days #30 tabs 04/24/23 04/27/23 04/26/23 morphine 15 mg tablet,extended 30 mg PO BID 30 days #60 tabs 04/24/23 04/27/23 04/26/23 release morphine concentrate 100 mg/5 mL 10 mg (0.5 mL) PO Q3H PRN pain 15 04/24/23 04/27/23 Unknown (20 mg/mL) oral solution days #30 mL nystatin 100,000 unit/mL oral 5 ml PO QID 30 days #600 mL 04/24/23 04/27/23 04/26/23 suspension Active Medications Generic Name Dose Route Start Last Admin Trade Name Freq PRN Reason Stop Dose Admin Fluticasone/Vilanterol 1 puffs 04/28/23 09:00 04/28/23 08:21 Fluticasone/Vilanterol 200/25mcg 14 Puffs/Inhaler INH 05/28/23 08:59 1 puffs DAILY MATI Administration Folic Acid 1 mg 04/28/23 09:00 04/28/23 08:22 Folic Acid 1 Mg Tab PO 05/28/23 08:59 1 mg DAILY MATI Administration Gabapentin 300 mg 04/28/23 09:00 04/28/23 08:22 Gabapentin 300 Mg Cap PO 05/28/23 08:59 300 mg TID MATI Administration Dextrose/Sodium Chloride 1,000 mls @ 100 mls/hr 04/28/23 02:30 04/28/23 04:04 D5w And Nss IV 05/28/23 02:29 100 mls/hr .Q10H MATI Administration Fluconazole 200 mg in 100 mls @ 100 mls/hr 04/28/23 09:00 04/28/23 08:16 Diflucan IV 05/08/23 08:59 100 mls/hr DAILY MATI Administration Famotidine 20 mg/ Syringe 5 mls @ 2.5 mls/min 04/28/23 09:00 04/28/23 08:22 IV 05/28/23 08:59 2.5 mls/min BID MATI Administration Pantoprazole Sodium 40 mg/ 10 mls @ 5 mls/min 04/28/23 09:00 04/28/23 08:22 Syringe IV 05/28/23 08:59 5 mls/min BID MATI Administration Cefepime HCl 2,000 mg/ Syringe 20 mls @ 5 mls/min 04/28/23 09:00 04/28/23 08:22 IV 05/05/23 08:59 5 mls/min Q12H MATI Administration Protocol Potassium Chloride 10 meq in 100 mls @ 100 mls/hr 04/28/23 06:30 04/28/23 08:03 K Steffen / Wtr IV 04/28/23 09:29 100 mls/hr Q1H MATI Administration Magnesium Sulfate/Dextrose 1 gm in 100 mls @ 50 mls/hr 04/28/23 06:45 04/28/23 08:03 Magnesium Sulfate / D5w IV 04/28/23 10:44 50 mls/hr Q2H MATI Administration Metoprolol Tartrate 12.5 mg 04/28/23 09:00 04/28/23 08:22 Metoprolol Tartrate 25 Mg Tab PO 05/28/23 08:59 Not Given BID MATI Morphine Sulfate 3 mg 04/28/23 01:33 04/28/23 07:33 Morphine Sulfate 4 Mg/Ml 1 Ml Carp\Vial IV 05/12/23 01:32 3 mg Q3H PRN Administration Pain Multi-Ingredient Mouthwash/Gargle 10 ml 04/28/23 07:30 04/28/23 08:31 First - Mouthwash Blm 119 Ml MT 05/28/23 07:29 Not Given ACHS MATI Nystatin 5 ml 04/28/23 09:00 04/28/23 08:31 Nystatin Susp 500,000 U/5 Ml Udc PO 05/08/23 08:59 Not Given QID MATI Umeclidinium [place] 1 puffs 04/28/23 09:00 04/28/23 08:21 Umeclidinium [place] 62.5mcg/Blister 7 Puffs/Inhaler INH 05/28/23 08:59 1 puffs DAILY MATI Administration Past Medical History Medical History ADHD Asthma Chronic cough Chronic low back pain Community acquired pneumonia Encounter for pre-operative examination Endometriosis of the uterus, unspecified Pancytopenia Primary adenocarcinoma of upper lobe of right lung (10/03/22) Pseudocholinesterase deficiency Systemic lupus erythematosus Tobacco abuse COPD Exercise / Class Metabolic Activity III < 4 Walking/Shop/Light housework Past Family History Family History Mother Cancer Breast Grandmother (Maternal) Cancer Lung Past Surgical History Surgical History H/O right wrist surgery H/O tubal ligation H/O: hysterectomy History of cholecystectomy Hx of appendectomy S/P bronchoscopy Past Anesthesia History No Hx of Anesthesia Complications and No Family Hx of Anesthesia Complications History of PONV No Hx of PONV and No Hx of Motion Sickness Social History Smoking Status: Current every day smoker tobacco type: cigarettes Smoking cigarettes per day: 1 ppd Do You Dip or Chew Tobacco: No Hx Alcohol Use: No Hx Substance Use: No substance use type: does not use Physical Exam Vital Signs Last Vital Signs Temp 36.8 C 04/28/23 08:05 Pulse 91 H 04/28/23 08:05 Resp 18 04/28/23 08:05 BP 97/63 L 04/28/23 08:05 Pulse Ox 96 04/28/23 08:05 O2 Del Method Nasal Cannula 04/28/23 08:05 O2 Flow Rate 2 04/28/23 08:05 Testing Laboratory Results 04/28/23 05:41 04/28/23 05:41 PT 10.9 Seconds (9.0-12.0) 04/27/23 18:18 INR 1.0 (0.9-1.1) 04/27/23 18:18 APTT 23.6 Seconds (21.0-31.0) 04/27/23 18:18 Electrocardiogram Date: 04/28/23 Findings: + NSR @ (@ 96) Chest X-Ray Date: 04/21/23 Findings: + NAD and + mass (right upper lobe) Echocardiogram Date: 04/17/23 EF: > 70% hyperdynamic LV Function: normal Other Findings: + LVH (mild) Valvular Disease: + no significant valvular disease
--- NOTE | 2023-04-28 09:44 | Electrocardiogram Report ---
Test Reason : Blood Pressure : / mmHG Vent. Rate : 108 BPM Atrial Rate : 108 BPM P-R Int : 128 ms QRS Dur : 078 ms QT Int : 372 ms P-R-T Axes : 043 -08 016 degrees QTc Int : 498 ms Sinus tachycardia with frequent Premature ventricular complexes Possible Left atrial enlargement Nonspecific T wave abnormality Abnormal ECG When compared with ECG of 21-APR-2023 05:24, Premature ventricular complexes are now Present Nonspecific T wave abnormality now evident in Anterior leads Confirmed by Stephen Hudson ([id number]) on 04/28/2023 9:44:27 AM Referred By: REFERRED SELF Confirmed By:Christiano Hudson
--- NOTE | 2023-04-28 10:05 | GI REPORT ---
Patient Name: Ritchie Lowe Procedure Date: 04/28/2023 9:25 AM Date of : 1980 Admit Type: Inpatient Age: 43 Gender: Female Attending MD: Zoe Traore DO, Procedure: Upper GI endoscopy Providers: Zoe Traore DO Referring MD: April Freeman Md, Penelope Kaba MD, Israel Jimenez Md Indications: Dysphagia, Odynophagia Patient Profile: This is a 43 year old female. Refer to note in patient chart for documentation of history and physical. Medicines: General Anesthesia Complications: No immediate complications. Estimated Blood Loss: Estimated blood loss: none. Procedure: Pre-Anesthesia Assessment: - Prior to the procedure, a History and Physical was performed, and patient medications and allergies were reviewed. The risks and benefits of the procedure and the sedation options and risks were discussed with the patient. All questions were answered and informed consent was obtained. Patient identification and proposed procedure were verified by the physician, the nurse and the bingo clerk in the procedure room. Mental Status Examination: alert and oriented. Airway Examination: Mallampati Class II (the uvula but not tonsillar pillars visualized). Respiratory Examination: clear to auscultation. CV Examination: RRR, no murmurs, no S3 or S4. Prophylactic Antibiotics: The patient does not require prophylactic antibiotics. Prior Anticoagulants: The patient has taken no anticoagulant or antiplatelet agents. ASA Grade Assessment: IV - A patient with severe systemic disease that is a constant threat to life. After reviewing the risks and benefits, the patient was deemed in satisfactory condition to undergo the procedure. The anesthesia plan was to use general anesthesia. Immediately prior to administration of medications, the patient was re-assessed for adequacy to receive sedatives. The physical status of the patient was re-assessed after the procedure. After obtaining informed consent, the endoscope was passed under direct vision. Throughout the procedure, the patient's blood pressure, pulse, and oxygen saturations were monitored continuously. The Endoscope was introduced through the mouth, and advanced to the second part of duodenum. The upper GI endoscopy was accomplished without difficulty. The patient tolerated the procedure well. Findings: One cratered esophageal ulcer with no bleeding and no stigmata of recent bleeding was found. The Z-line was regular and was found 37 cm from the incisors. Diffuse severely erythematous mucosa without bleeding was found in the entire examined stomach. The exam of the stomach was otherwise normal. The duodenal bulb and second portion of the duodenum were normal. Impression: - An extremely deep and cratered esophageal ulcer with no bleeding found in the upper third of the esophagus. There was a hole (see attached pictures) in the ulcer bed that is concenring for a contained perforation given how deep this ulcers is. Other differentials would include a fistula or a Zenkers Diverticulum. She has a normal CXR today. There was also food stuck in this ulcer bed though the scope was easily able to pass beyond the ulcer. - Z-line regular, 37 cm from the incisors. - Erythematous mucosa in the stomach. - Normal duodenal bulb and second portion of the duodenum. - No specimens collected. Recommendation: - Return patient to [facility] for ongoing care. - Strict NPO until CT chest completed. - Continue present medications. - While CXR today is negative for free air given concern for perforation/contained perforation of esophagus recommend a CT of the chest. - PPI 40 mg BID, Liquid carafate 1 gm QID for 4 weeks Zoe Traore, 04/28/2023 10:04:44 AM Note Initiated On: 04/28/2023 9:25 AM Number of Addenda: 0 I attest to the content of the Intraoperative Record and orders documented therein, exceptions below {[id number]}
--- NOTE | 2023-04-28 11:26 | CT Scan Report ---
CT chest diagnostic wo con CLINICAL HISTORY: with gastrograffin rule out perforation deep ulcer TECHNIQUE: Multidetector row helical CT of the chest was performed. Coronal and sagittal reformations were obtained. Automated dose lowering techniques and/or adjustment according to patient size were u tilized for this exam. CT DOSE: 1945.54 mGy.cm Comparison: Comparison is made to CT chest 04/04/2023 FINDINGS: Lungs and pleura: Redemonstration of a spiculated lesion in the right upper lobe measuring approximat brooks 3.0 x 1.8 cm. Atelectasis is seen. Emphysematous changes are seen. Heart and pericardium: Heart size is normal. No pericardial effusion. Vessels: Unremarkable. Mediastinum and aguilar: Numerous enlarged mediastinal lymph nodes are again seen. No evidence of Gastro grafin leak is seen. Chest wall and lower neck: Unremarkable. Abdomen: Patient is status post cholecystectomy. Right liver mass and left adrenal mass are again see n. Bones: Unremarkable. IMPRESSION: 1. Right lung mass and mediastinal lymphadenopathy are again seen. Stable abdominal metastatic findi ngs. 2. No evidence of perforating ulcer in the visualized esophagus and stomach. 3. Emphysema and atelectasis. ACT 112: Negative or not required by law. Electronically signed by: Lei Edge M.D. 04/28/2023 11:24 AM
--- NOTE | 2023-04-28 13:55 | Anesthesiology Progress Note ---
Date of Service April 28, 2023 Anesthesia Post Procedure Vital Signs Vital Signs: Temp Pulse Pulse Pulse Resp BP BP 04/28/23 11:50 36.7 C 82 16 103/69 04/28/23 10:25 88 20 103/64 04/28/23 10:10 98 H 20 103/66 04/28/23 09:55 101 H 22 120/74 04/28/23 09:48 04/28/23 09:17 36.2 C L 98 H 16 115/77 04/28/23 08:05 36.8 C 91 H 18 97/63 L 04/28/23 04:33 04/28/23 04:18 36.8 C 101 H 12 130/69 04/28/23 01:00 103 H 16 123/82 04/28/23 00:30 99 H 04/27/23 22:40 04/27/23 23:00 98 H 18 126/94 04/27/23 20:50 106 H 04/27/23 20:44 106 H 18 130/87 04/27/23 18:04 36.4 C L 110 H 18 123/82 Pulse Ox O2 Del Method O2 Flow Rate 04/28/23 11:50 92 Nasal Cannula 2 04/28/23 10:25 94 Room Air 04/28/23 10:10 95 Room Air 04/28/23 09:55 93 Room Air 04/28/23 09:48 Nasal Cannula 2 04/28/23 09:17 95 Room Air 04/28/23 08:05 96 Nasal Cannula 2 04/28/23 04:33 Nasal Cannula 2 04/28/23 04:18 95 Nasal Cannula 2 04/28/23 01:00 95 Room Air 04/28/23 00:30 04/27/23 22:40 87 L 0 04/27/23 23:00 98 Nasal Cannula 2 04/27/23 20:50 04/27/23 20:44 91 Room Air 04/27/23 18:04 95 Room Air Pain Intensity Midsternal: Pain Intensity: 5 Transfer of Care Handoff Completed per policy Notes Mental Status: alert / awake / arousable Patient Amnestic to Procedure: Yes Nausea / Vomiting: adequately controlled Pain: adequately controlled Airway Patency, RR, SpO2: stable & adequate BP & HR: stable & adequate Hydration State: stable & adequate Anesthetic Complications: no major complications apparent
--- NOTE | 2023-04-28 17:07 | Hospitalist Progress Note ---
Date of Service April 28, 2023 Assessment & Plan (1) Esophageal pain: (2) Difficulty swallowing: (3) Chest pain: Plan Ms. 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 Patient recently admitted for similar concerns, but further evaluation was limited secondary to neutropenia. Patient recently discharged on 04/23 to home to complete course of IV antibiotics for presumptive pseudomonal post obstructive pneumonia with bi-weekly labs to assess pancytopenia, as well as fluconazole for presumtive candidal esophagitis. Patient worsened prompting presentation. Labs revealed moderate neutropenia with ANC 849.12 this am, which was a tolerable threshold for EGD completed 04/28. Given patient's inability to eat and findings on egd discussed below, patient will need to transfer to [facility]. Gastro is coordinating at this time. #Deep esophageal ulceration with deep diverticular like pouching #Odynophagia -CT Chest without signs of perforating ulcer -PPI BID 40mg, liquid Carafate 1 g x 4 weeks (EOT 05/26) -Will need PEG for nutrition: Surgery will not perform, GI coordinating with [facility]--anticipate transfer tomorro #Lung adenocarcinoma #Metastatic adenocarcinoma to the brain Palliative care previously consulted by previous provider as per oncology recommendations. However, as per palliative care physician-patient has made it clear that she wants to recover from current acute condition and continue future cancer treatments. The following points were extracted from Dr Jimenez's notecharted on 04/23/2023 referencing conversation from 04/22: ">> Disease status is noted with MRI showing improvement but certainly not resolution of the previous lesions (though we cannot completely distinguish between scar and smoldering persistence). While there is not been dramatic progression of her chest disease there are certainly not been any dramatic response to initial therapy with suggestion of new lesions in the liver and adrenal. 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 The delay of recovery in and of itself means that even if we want to resume chemotherapy we cannot do so for some time with that delay diluting the potential efficacy of chemotherapy we would have to seriously consider further dose reduction to prevent additional prolonged and even more severe cytopenias going forward. 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 She is receiving ICI for the first time as part of her most recent treatment and that represents an alternative approach that could bear some fruit though it takes some time to do so. Overall I have had to be more negative about any expectations for fundamentally significant response particularly noting that the [employer]END[employer] may be the most immediately threatening area of disease progression and also an area that systemic therapy reach is less effectively. >> There is a significant danger that further chemotherapy could ironically lead to complications that shorten her life rather than lengthen her life. As per the seminal study by Tori et al ([facility] 2010; 363:733DOI: [id number] ) we discussed that a focus more exclusively on palliative care/symptom management can ironically stabilize or even extend quantity of life versus additional attempts at a later line chemotherapy that cause more problems and may solve. That approach can certainly be associated with better quality of life and quality time with her family. Ritchie certainly seems to understand that this is a choice to consider but struggles greatly with moving away from her stance of wanting to "fight" the disease." #Pancytopenia Last chemotherapy was on 04/02/2023; she received pembrolizumab, Pemetrexed Disodium and carboplatin Moderate neutropenia 04/28 at 849.12 CTM trend CBC, transfuse hgb <7.0, consider further utility of neupogen now that abx for pneumonia #Bilateral leg pain Patient reported bilateral leg pain since April 11 Venous duplex was negative for DVT at recent admission Continue Gabapentin 300mg TID # chronic medical conditions:Continue with/resume home meds as and when able. 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 cancer pain on narcotics ADD/mood disorder, at baseline ongoing tobacco abuse , Nicotine patch as needed Diet:Regular DVT prophylaxis: SCDs Re: Brain mets, thrombocytopenia Full code:attempting transfer to [facility] for push peg Admission and Anticipated Discharge Date Admission Date: April 27, 2023 Subjective NAEO, completed EGD, sleepy on evaluation as recently received pain medication, denied any acute concerns Review of Systems Review of Systems: All systems reviewed & are unremarkable except as noted in Subjective Physical Exam Constitutional: sleepy, withdrawn Respiratory: decreased RUL breathsounds Cardiovascular: tachycardic Neurologic: no overt focal deficits on exam, CN II-XII appear intact though not formally tested Results & Data Results & Data Vital Signs (Past 12 Hours) Vital Signs Temp Pulse Resp BP Pulse Ox O2 Del Method O2 Flow Rate 04/28/23 15:44 36.9 C 94 H 18 120/82 95 Room Air 04/28/23 11:50 36.7 C 82 16 103/69 92 Nasal Cannula 2 04/28/23 10:25 88 20 103/64 94 Room Air 04/28/23 10:10 98 H 20 103/66 95 Room Air 04/28/23 09:55 101 H 22 120/74 93 Room Air 04/28/23 09:48 Nasal Cannula 2 04/28/23 09:17 36.2 C L 98 H 16 115/77 95 Room Air 04/28/23 08:05 36.8 C 91 H 18 97/63 L 96 Nasal Cannula 2 Laboratory Results Short CBC 04/27/23 04/28/23 Range/Units 18:18 05:41 WBC 2.40 L 1.74 L (4.8-10.8) K/ul Hgb 8.6 L 7.5 L (12.0-16.0) g/dl Hct 25.8 L 22.6 L (37.0-47.0) % Plt Count 87 L 76 L (130-400) K/uL BMP 04/27/23 04/28/23 18:18 05:41 Sodium 141 140 Potassium 3.6 3.3 L Chloride 107 108 H Carbon Dioxide 28 26 BUN 8 8 Creatinine 0.68 0.63 Glucose 99 107 H Calcium 9.1 8.4 L Liver Function 04/27/23 Range/Units 18:18 Total Bilirubin 0.6 (0.2-1.0) mg/dl AST 12 L (13-39) U/L ALT 9 (7-52) U/L Alkaline Phosphatase 76 (34-104) U/L Albumin 3.3 L (3.4-5.0) gm/dl Medications Administered Home Medications Medication Instructions Recorded Confirmed Last Taken albuterol sulfate 2.5 mg/3 mL 2.5 mg inhalation Q4H PRN 03/28/23 04/27/23 04/04/23 (0.083 %) solution for nebulization Shortness Of Breath Or Wheezing albuterol sulfate 90 mcg/actuation 2 puff inhalation Q4H PRN 03/28/23 04/27/23 04/04/23 aerosol inhaler (Ventolin HFA) Shortness Of Breath Or Wheezing benzonatate 100 mg capsule 100 mg PO TID PRN Cough 03/28/23 04/27/23 Unknown chlorpromazine 25 mg tablet 25 mg PO QID PRN Hiccups 03/28/23 04/27/23 Unknown cyanocobalamin (vitamin B-12) 1,000 mcg IM MONTHLY 03/28/23 04/27/23 Unknown 1,000 mcg/mL injection solution famotidine 10 mg tablet 10 mg PO BID 03/28/23 04/27/23 04/26/23 fluticasone propionate 230 2 puff inhalation BID 03/28/23 04/27/23 04/26/23 mcg-salmeterol 21 mcg/actuation HFA inhaler (Advair HFA) folic acid 1 mg tablet 1 mg PO DAILY 03/28/23 04/27/23 04/26/23 lorazepam 0.5 mg tablet 0.5 mg PO TID PRN Anxiety 03/28/23 04/27/23 04/04/23 morphine 15 mg immediate release 15 mg PO Q4H PRN Pain 03/28/23 04/27/23 Unknown tablet ondansetron HCl 8 mg tablet 8 mg PO TID PRN Nausea And Vomiting 03/28/23 04/27/23 Unknown pantoprazole 40 mg tablet,delayed 40 mg PO DAILY 03/28/23 04/27/23 04/26/23 release promethazine 12.5 mg tablet 12.5 mg PO Q6H PRN Nausea And 03/28/23 04/27/23 Unknown Vomiting umeclidinium 62.5 mcg/actuation 1 inh inhalation DAILY 03/28/23 04/27/23 04/26/23 blister powder for inhalation (Incruse Ellipta) Magic Mouthwash 300 mL mouthwash 10 ml mucous membrane ACHS 04/03/23 04/27/23 04/26/23 dysphagiea #300 mL fluconazole 100 mg tablet 200 mg PO DAILY #21 tabs 04/24/23 04/27/23 04/26/23 (Diflucan) gabapentin 300 mg capsule 300 mg PO TID 30 days #90 caps 04/24/23 04/27/23 04/26/23 metoprolol tartrate 25 mg tablet 12.5 mg PO BID 30 days #30 tabs 04/24/23 04/27/23 04/26/23 morphine 15 mg tablet,extended 30 mg PO BID 30 days #60 tabs 04/24/23 04/27/23 04/26/23 release morphine concentrate 100 mg/5 mL 10 mg (0.5 mL) PO Q3H PRN pain 15 04/24/23 04/27/23 Unknown (20 mg/mL) oral solution days #30 mL nystatin 100,000 unit/mL oral 5 ml PO QID 30 days #600 mL 04/24/23 04/27/23 04/26/23 suspension Active Medications Generic Name Dose Route Start Last Admin Trade Name Freq PRN Reason Stop Dose Admin Fluticasone/Vilanterol 1 puffs 04/28/23 09:00 04/28/23 08:21 Fluticasone/Vilanterol 200/25mcg 14 Puffs/Inhaler INH 05/28/23 08:59 1 puffs DAILY MATI Administration Folic Acid 1 mg 04/28/23 09:00 04/28/23 08:22 Folic Acid 1 Mg Tab PO 05/28/23 08:59 1 mg DAILY MATI Administration Gabapentin 300 mg 04/28/23 09:00 04/28/23 13:57 Gabapentin 300 Mg Cap PO 05/28/23 08:59 Not Given TID MATI Dextrose/Sodium Chloride 1,000 mls @ 100 mls/hr 04/28/23 02:30 04/28/23 13:56 D5w And Nss IV 05/28/23 02:29 100 mls/hr .Q10H MATI Administration Fluconazole 200 mg in 100 mls @ 100 mls/hr 04/28/23 09:00 04/28/23 11:52 Diflucan IV 05/08/23 08:59 Infused DAILY MATI Infusion Famotidine 20 mg/ Syringe 5 mls @ 2.5 mls/min 04/28/23 09:00 04/28/23 08:22 IV 05/28/23 08:59 2.5 mls/min BID MATI Administration Pantoprazole Sodium 40 mg/ 10 mls @ 5 mls/min 04/28/23 09:00 04/28/23 08:22 Syringe IV 05/28/23 08:59 5 mls/min BID MATI Administration Cefepime HCl 2,000 mg/ Syringe 20 mls @ 5 mls/min 04/28/23 09:00 04/28/23 08:22 IV 05/05/23 08:59 5 mls/min Q12H MATI Administration Protocol Metoprolol Tartrate 12.5 mg 04/28/23 09:00 04/28/23 08:22 Metoprolol Tartrate 25 Mg Tab PO 05/28/23 08:59 Not Given BID MATI Morphine Sulfate 3 mg 04/28/23 01:33 04/28/23 17:05 Morphine Sulfate 4 Mg/Ml 1 Ml Carp\\Vial IV 05/12/23 01:32 3 mg Q3H PRN Administration Pain Multi-Ingredient Mouthwash/Gargle 10 ml 04/28/23 07:30 04/28/23 11:59 First - Mouthwash Blm 119 Ml MT 05/28/23 07:29 Not Given ACHS MATI Nystatin 5 ml 04/28/23 09:00 04/28/23 12:44 Nystatin Susp 500,000 U/5 Ml Udc PO 05/08/23 08:59 Not Given QID MATI Umeclidinium [place] 1 puffs 04/28/23 09:00 04/28/23 08:21 Umeclidinium [place] 62.5mcg/Blister 7 Puffs/Inhaler INH 05/28/23 08:59 1 puffs DAILY MATI Administration
--- NOTE | 2023-04-28 17:54 | Discharge Summary ---
Discharge Summary Date of Service April 28, 2023 Notes For Next Care Provider Medication Changes From Visit -None: transfering Admission HPI Per Admitting Provider 43 y/o F with history of metastatic lung cancer to brain here today for EGD for odynophagia/dysphagia. Principal Dx & Hospital Course #1 = Principal Diagnosis (1) Esophageal pain: (2) Difficulty swallowing: (3) Chest pain: Plan Ms. 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 Patient recently admitted for similar concerns, but further evaluation was limited secondary to neutropenia. Patient recently discharged on 04/23 to home to complete course of IV antibiotics for presumptive pseudomonal post obstructive pneumonia with bi-weekly labs to assess pancytopenia, as well as fluconazole for presumtive candidal esophagitis. Patient worsened prompting presentation. Labs revealed moderate neutropenia with ANC 849.12 this am, which was a tolerable threshold for EGD completed 04/28. Given patient's inability to eat and findings on egd discussed below, patient will need to transfer to [facility]. Gastro is coordinating at this time. Transfered to [facility] #Deep esophageal ulceration with deep diverticular like pouching #Odynophagia -CT Chest without signs of perforating ulcer -PPI BID 40mg, liquid Carafate 1 g x 4 weeks (EOT 05/26) -Will need PEG for nutrition: Surgery will not perform, GI coordinating with [facility]--transfered to [facility] #Lung adenocarcinoma #Metastatic adenocarcinoma to the brain Palliative care previously consulted by previous provider as per oncology recommendations. However, as per palliative care physician-patient has made it clear that she wants to recover from current acute condition and continue future cancer treatments. The following points were extracted from Dr Jimenez's notecharted on 04/23/2023 referencing conversation from 04/22: ">> Disease status is noted with MRI showing improvement but certainly not resolution of the previous lesions (though we cannot completely distinguish between scar and smoldering persistence). While there is not been dramatic progression of her chest disease there are certainly not been any dramatic response to initial therapy with suggestion of new lesions in the liver and adrenal. She does not have an overwhelming volume of disease outside of the MEDICAL OFFICE TECHNICIAN but its persistence and the persistence of that MEDICAL OFFICE TECHNICIAN disease even after 2 cycles of chemotherapy certainly raises concern >> The markedly prolonged pancytopenia suggest significant compromise of marrow reserve. The delay of recovery in and of itself means that even if we want to resume chemotherapy we cannot do so for some time with that delay diluting the potential efficacy of chemotherapy we would have to seriously consider further dose reduction to prevent additional prolonged and even more severe cytopenias going forward. In the face of disease that is not showing robust responses of to the first 2 cycles, that further undercuts any expectation for dramatic response director long term care at least for the cytotoxic portion of her treatment. She is receiving ICI for the first time as part of her most recent treatment and that represents an alternative approach that could bear some fruit though it takes some time to do so. Overall I have had to be more negative about any expectations for fundamentally significant response particularly noting that the MEDICAL OFFICE TECHNICIAN may be the most immediately threatening area of disease progression and also an area that systemic therapy reach is less effectively. >> There is a significant danger that further chemotherapy could ironically lead to complications that shorten her life rather than lengthen her life. As per the seminal study by Tori et al ([facility] 2010; 363:733DOI: 10.1056/[id number] ) we discussed that a focus more exclusively on palliative care/symptom management can ironically stabilize or even extend quantity of life versus additional attempts at a later line chemotherapy that cause more problems and may solve. That approach can certainly be associated with better quality of life and quality time with her family. Ritchie certainly seems to understand that this is a choice to consider but struggles greatly with moving away from her stance of wanting to "fight" the disease." #Pancytopenia Last chemotherapy was on 04/02/2023; she received pembrolizumab, Pemetrexed Disodium and carboplatin Moderate neutropenia 04/28 at 849.12 CTM trend CBC, transfuse hgb <7.0, consider further utility of neupogen now that abx for pneumonia #Bilateral leg pain Patient reported bilateral leg pain since April 11 Venous duplex was negative for DVT at recent admission Continue Gabapentin 300mg TID # chronic medical conditions:Continue with/resume home meds as and when able. 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 ADD/mood disorder, at baseline ongoing tobacco abuse , Nicotine patch as needed Diet:Regular DVT prophylaxis: SCDs Re: Brain mets, thrombocytopenia Full code:Transfer to [facility] Discharge Exam Constitutional WD/WN, vitals as above Respiratory decreased breath sounds in RUL Cardiovascular tachycardic Updated Medication List Medication Instructions Recorded Confirmed Type albuterol sulfate 2.5 mg/3 mL 2.5 mg inhalation Q4H PRN 03/28/23 04/27/23 History (0.083 %) solution for nebulization Shortness Of Breath Or Wheezing albuterol sulfate 90 mcg/actuation 2 puff inhalation Q4H PRN 03/28/23 04/27/23 History aerosol inhaler (Ventolin HFA) Shortness Of Breath Or Wheezing benzonatate 100 mg capsule 100 mg PO TID PRN Cough 03/28/23 04/27/23 History chlorpromazine 25 mg tablet 25 mg PO QID PRN Hiccups 03/28/23 04/27/23 History cyanocobalamin (vitamin B-12) 1,000 mcg IM MONTHLY 03/28/23 04/27/23 History 1,000 mcg/mL injection solution fluticasone propionate 230 2 puff inhalation BID 03/28/23 04/27/23 History mcg-salmeterol 21 mcg/actuation HFA inhaler (Advair HFA) folic acid 1 mg tablet 1 mg PO DAILY 03/28/23 04/27/23 History lorazepam 0.5 mg tablet 0.5 mg PO TID PRN Anxiety 03/28/23 04/27/23 History morphine 15 mg immediate release 15 mg PO Q4H PRN Pain 03/28/23 04/27/23 History tablet ondansetron HCl 8 mg tablet 8 mg PO TID PRN Nausea And Vomiting 03/28/23 04/27/23 History umeclidinium 62.5 mcg/actuation 1 inh inhalation DAILY 03/28/23 04/27/23 History blister powder for inhalation (Incruse Ellipta) Magic Mouthwash 300 mL mouthwash 10 ml mucous membrane ACHS 04/03/23 04/27/23 Rx dysphagiea #300 mL gabapentin 300 mg capsule 300 mg PO TID 30 days #90 caps 04/24/23 04/27/23 Rx metoprolol tartrate 25 mg tablet 12.5 mg PO BID 30 days #30 tabs 04/24/23 04/27/23 Rx morphine 15 mg tablet,extended 30 mg PO BID 30 days #60 tabs 04/24/23 04/27/23 Rx release morphine concentrate 100 mg/5 mL 10 mg (0.5 mL) PO Q3H PRN pain 15 04/24/23 04/27/23 Rx (20 mg/mL) oral solution days #30 mL nystatin 100,000 unit/mL oral 5 ml PO QID 30 days #600 mL 04/24/23 04/27/23 Rx suspension pantoprazole 40 mg tablet,delayed 40 mg PO BID #90 tabs 04/28/23 04/27/23 Rx release Hospital Stay Data Consultations 04/27/23 21:36 ED Decision to Admit Stat 04/28/23 08:00 Consult Gastroenterology Routine Procedures Performed Operation Date: 04/28/23 16:30 Actual Procedures p Esophagogastroduodenoscopy - Zoe Traore, Diagnostic Imagining Performed 04/28/23 10:10 CT chest diagnostic wo con Stat Pending Results Patient Have Any Pending Studies at Discharge: No Discharge Instructions Given to Patient (Per Discharging Provider) Ms. 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 Patient recently admitted for similar concerns, but further evaluation was limited secondary to neutropenia. Patient recently discharged on 04/23 to home to complete course of IV antibiotics for presumptive pseudomonal post obstructive pneumonia with bi-weekly labs to assess pancytopenia, as well as fluconazole for presumtive candidal esophagitis. Patient worsened prompting presentation. Labs revealed moderate neutropenia with ANC 849.12 this am, which was a tolerable threshold for EGD completed 04/28. Given patient's inability to eat and findings on egd discussed below, patient will need to transfer to [facility]. Gastro is coordinating at this time. #Deep esophageal ulceration with deep diverticular like pouching #Odynophagia -CT Chest without signs of perforating ulcer -PPI BID 40mg, liquid Carafate 1 g x 4 weeks (EOT 05/26) -Will need PEG for nutrition: Surgery will not perform, GI coordinating with [facility]--anticipate transfer tomorro #Lung adenocarcinoma #Metastatic adenocarcinoma to the brain Palliative care previously consulted by previous provider as per oncology recommendations. However, as per palliative care physician-patient has made it clear that she wants to recover from current acute condition and continue future cancer treatments. The following points were extracted from Dr Jimenez's notecharted on 04/23/2023 referencing conversation from 04/22: ">> Disease status is noted with MRI showing improvement but certainly not resolution of the previous lesions (though we cannot completely distinguish between scar and smoldering persistence). While there is not been dramatic progression of her chest disease there are certainly not been any dramatic response to initial therapy with suggestion of new lesions in the liver and adrenal. She does not have an overwhelming volume of disease outside of the MEDICAL OFFICE TECHNICIAN but its persistence and the persistence of that MEDICAL OFFICE TECHNICIAN disease even after 2 cycles of chemotherapy certainly raises concern >> The markedly prolonged pancytopenia suggest significant compromise of marrow reserve. The delay of recovery in and of itself means that even if we want to resume chemotherapy we cannot do so for some time with that delay diluting the potential efficacy of chemotherapy we would have to seriously consider further dose reduction to prevent additional prolonged and even more severe cytopenias going forward. In the face of disease that is not showing robust responses of to the first 2 cycles, that further undercuts any expectation for dramatic response group home at least for the cytotoxic portion of her treatment. She is receiving ICI for the first time as part of her most recent treatment and that represents an alternative approach that could bear some fruit though it takes some time to do so. Overall I have had to be more negative about any expectations for fundamentally significant response particularly noting that the MEDICAL OFFICE TECHNICIAN may be the most immediately threatening area of disease progression and also an area that systemic therapy reach is less effectively. >> There is a significant danger that further chemotherapy could ironically lead to complications that shorten her life rather than lengthen her life. As per the seminal study by Tori et al ([facility] 2010; 363:733DOI: 10.1056/[id number] ) we discussed that a focus more exclusively on palliative care/symptom management can ironically stabilize or even extend quantity of life versus additional attempts at a later line chemotherapy that cause more problems and may solve. That approach can certainly be associated with better quality of life and quality time with her family. Ritchie certainly seems to understand that this is a choice to consider but struggles greatly with moving away from her stance of wanting to "fight" the disease." #Pancytopenia Last chemotherapy was on 04/02/2023; she received pembrolizumab, Pemetrexed Disodium and carboplatin Moderate neutropenia 04/28 at 849.12 CTM trend CBC, transfuse hgb <7.0, consider further utility of neupogen now that abx for pneumonia #Bilateral leg pain Patient reported bilateral leg pain since April 11 Venous duplex was negative for DVT at recent admission Continue Gabapentin 300mg TID # chronic medical conditions:Continue with/resume home meds as and when able. 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
[2023-04-28] MEDS ORDERED: MoRPHine SULFATE 4 MG/ML 1 ML CARP\\VIAL IV STA (21:17)
== END 2023-04-28 22:51 | disposition short-term general hospital (02) | DRG 380 ==
LOC: ED 18:01 → EDINP 23:43 → 2W 04-28 01:33

== ENCOUNTER 2023-06-19 11:40 | Observation (INO) ==
[2023-06-19] MEDS ORDERED: SODIUM CHLORIDE 0.9% 500 ML IV STA (13:07)
[2023-06-19 14:05] LABS: Basophils # (auto) 0.02 K/uL (0.00-0.20); Basophils % (auto) 0.3 %; Eosinophils # (auto) 0.09 K/uL (0.00-0.50); Eosinophils % (auto) 1.2 %; Hematocrit (blood only) 36.3 % (37.0-47.0); Hemoglobin 11.6 g/dl (12.0-16.0); Immature Granulocytes # (auto) 0.04 K/uL (0.01-0.20); Immature Granulocytes % (auto) 0.5 %; Lymphocytes # (auto) 1.17 K/uL (1.20-3.40); Lymphocytes % (auto) 15.5 %; Mean Corpuscular Volume 97.1 fL (80.0-100.0); Mean Platelet Volume 9.7 fL (9.4-12.4); Monocytes # (auto) 0.51 K/uL (0.11-0.59); Monocytes % (auto) 6.7 %; Neutrophils # (auto) 5.73 K/uL (1.40-6.50); Neutrophils % (auto) 75.8 %; Platelet Count 208 K/uL (130-400); RDW Coefficient of Variation 15.3 % (11.5-14.5); Red Blood Count 3.74 M/uL (4.20-5.40); White Blood Count 7.56 K/ul (4.8-10.8)
[2023-06-19 14:12] LABS: Alanine Aminotransferase 4 U/L (7-52); Albumin Globulin Ratio 0.9 (0.9-2); Albumin Level 3.1 gm/dl (3.4-5.0); Alkaline Phosphatase 80 U/L (34-104); Anion Gap 9 (3-11); Aspartate Aminotransferase 9 U/L (13-39); BUN Creatinine Ratio 13.1 (10-20); Bilirubin,Total 0.6 mg/dl (0.2-1.0); Blood Urea Nitrogen 8 mg/dl (6-23); Calcium 8.8 mg/dl (8.6-10.3); Carbon Dioxide 28 mmol/L (21-32); Chloride 101 mmol/L (98-107); Est GFR (African American) 126.9 ml/min; Est GFR (Non-African American) 109.5 ml/min; Globulin 3.3 gm/dl (2.5-4.0); Glucose 95 mg/dl (70-99(Fasting)); Lipase 9 U/L (11-82); Potassium 3.4 mmol/L (3.5-5.1); Sodium 138 mmol/L (136-145); Total Protein 6.4 gm/dl (6.0-8.3)
[2023-06-19 14:18] LABS: Troponin I High Sensitivity 4.5 pg/ml (0-14)
--- NOTE | 2023-06-19 14:19 | Emergency Department Note ---
Impression & Plan Metastatic adenocarcinoma, Cancer-related breakthrough pain ED Provider Note NAME: FANNIE GUTIERREZ AGE: 43 SEX: Female INFORMANT: Patient and ED PROVIDER(S): River Villavicencio MD CHIEF COMPLAINT: breaktrough cancer pain PLAN: Disposition: Admitted Outpatient prescription management: none Referral: None MEDICAL DECISION MAKING: Patient presented because of pain related issues. Unfortunately she has significant metastatic disease. Blood work today was unremarkable as was ECG. Patient was treated with multiple doses of IV Dilaudid. She has a significant daily morphine dose upwards of 240 mg. Patient will benefit from admission, pain control, and reassessment of her outpatient regimen. [facility] Case was discussed and diagnostics were reviewed. Patient was evaluated in the ER and admitted for further management. Care/management discussed with: Discussed with manager cath lab Level of care consideration(s): After review of the information above and other included data, I feel the patient requires further management in the hospital Triage Nursing notes: reviewed and agree them. Vital Signs: reviewed and remarkable for no significant abnormalities Additional History obtained from: none Chronic Medical/Social Conditions affecting care: Metastatic lung cancer Prior/ Outside/ External records reviewed: none Differential Diagnosis: Infection, dehydration, metabolic abnormality, hypo/hyperglycemia, electrolyte disturbance, anemia, hypoxia, cardiac sources, intracerebral event, toxicologic, neurologic, as well as other pathologies. Diagnostics, independently interpreted by me: ECG: Twelve-lead ECG reveals sinus rhythm with PVCs at [address] elevation or depression. Cardiac Monitoring: none Medical decision rules: none Imaging studies: Chest x-ray showed no acute process. Patient was having complaints of pain in the left hip area but no metastatic lesions were noted in the hip. No fracture or dislocation. The patient may be having some referred sciatic type pain secondary to her known lumbar metastases. HPI: 43 year old Female arrives for evaluation of [facility] cancer pain. She has metastatic lung cancer. She has been having break through pain issues and despite increased morphine dosing can't get ahead of pain. Left hip, back and leg pain. This is the usual spots. 04/07 pain. Morphine ER 30mg BID, 30mg q4 Morphine IR q4 PRN is usual dosing and was recently increased. Notes some SOB, mild KEE, generalized weakness, nausea, vomiting, constipation(chronic). Pt denies LOC, fevers, chills, diaphoresis, visual changes, neck pain, chest pain, abdominal pain, melena, hematochezia, urinary symptoms, numbness, lymphadenopathy, or other complaints. PAST MEDICAL HISTORY: See Below, metastatic lung ca PAST SURGICAL HISTORY: See Below, port SOCIAL HISTORY: See Below, former smoker HOME MEDICATIONS: See Below ALLERGIES: See Below VITALS: See Below PHYSICAL EXAMINATION: GENERAL: Awake, alert, uncomfortable-appearing, in no distress HENT: Normocephalic, atraumatic. Oropharynx unremarkable. EYES: Normal conjunctiva. Sclera non-icteric. NECK: Inspection normal. Non-tender. Supple. No nuchal rigidity. FROM. No masses. RESPIRATORY: Clear to auscultation. No wheezes. No rales. Normal respiratory effort. CARDIAC: Borderline tachycardic rate. Normal rhythm. No murmurs. No rubs. Extremities warm and well perfused. Pulses equal. No JVD. GI: Soft, non-distended. No tenderness to palpation. No rebound or guarding. No masses. RECTAL: Deferred. MUSCULOSKELETAL: Atraumatic. Chest examination reveals mediport right chest. The back is symmetrical on inspection without obvious abnormality. There is no CVA tenderness to palpation. No joint edema. LOWER EXTREMITIES: Calves are equal size bilaterally and non-tender. No edema. No discoloration. NEURO: Normal sensorium. No sensory or motor deficits noted. SKIN: Dry skin noted. No rash or jaundice noted. PROCEDURES: none CRITICAL CARE: none OBSERVATION NOTE: none Past Med/Surg History Medical History Pneumonia Fever Chest fullness Dysphasia Pneumonia Chest pain Community acquired pneumonia Chronic low back pain Chronic cough Pseudocholinesterase deficiency Encounter for pre-operative examination Pancytopenia Primary adenocarcinoma of upper lobe of right lung (10/03/22) Endometriosis of the uterus, unspecified Asthma ADHD Tobacco abuse Systemic lupus erythematosus Surgical History H/O right wrist surgery H/O: hysterectomy History of cholecystectomy Hx of appendectomy H/O tubal ligation S/P bronchoscopy Family History Mother Cancer Breast Grandmother (Maternal) Cancer Lung Social History Smoking Status: Current every day smoker Tobacco Type: Cigarettes Cigarettes Per Day: 1 ppd; Second Hand Exposure: Yes; Do You Dip or Chew Tobacco: No; Tobacco Cessation Education Requested by Patient: No Hx Alcohol Use: No Hx Substance Use: No Preferred Language: [place] Communication Ability: Effective Visual Impairment: No Limitations Hearing Ability: Normal [employer] Project Manager Required: No Beliefs That Will Affect Care: None marital status: Single Current Living Situation: Spouse Current Living Situation Comment: engaged current occupational status: unemployed 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 Other Information That Helps Us Care for You: No Feels Safe at Home: Yes Safety Concerns: Feels Safe At This Time Diet: regular during the past year weight has: remained stable Assistive Devices: Oxygen - at Night Allergies Allergies Allergy/AdvReac Type Severity Reaction Status Date / Time levofloxacin [From Levaquin] Allergy Severe THROAT Verified 06/16/23 18:22 SWELLS SHUT, ITCHY--RASH PER [facility] Penicillins Allergy Severe Anaphylaxis Verified 06/16/23 18:22 clindamycin Allergy Intermediate CAUSED A Verified 06/16/23 18:22 YEAST INFECTION X 6 MONTHS povidone-iodine Allergy Intermediate Rash Verified 06/16/23 18:22 [From Betadine] silver Allergy Intermediate Rash Verified 06/16/23 18:22 [From Tegaderm AG Mesh] bupropion [From Wellbutrin] AdvReac Severe suicidal Verified 06/16/23 18:22 ideation duloxetine AdvReac Severe suicidal Verified 06/16/23 18:22 ideations sulfamethoxazole AdvReac Mild YEAST Verified 06/16/23 18:22 [From Bactrim] INFECTION trimethoprim [From Bactrim] AdvReac Mild YEAST Verified 06/16/23 18:22 INFECTION ANESTHESIA AdvReac Severe PER Uncoded 06/16/23 18:22 [facility]--PSEUDOCHLOINESTERASE---FLAT LINES PLASTIC AdvReac Severe SKIN PEELS Uncoded 06/16/23 18:22 Home Meds Home Medications Medication Instructions Recorded Confirmed albuterol sulfate 2.5 mg/3 mL 2.5 mg inhalation Q4H PRN 03/28/23 06/19/23 (0.083 %) solution for nebulization Shortness Of Breath Or Wheezing albuterol sulfate 90 mcg/actuation 2 puff inhalation Q4H PRN 03/28/23 06/19/23 aerosol inhaler (Ventolin HFA) Shortness Of Breath Or Wheezing chlorpromazine 25 mg tablet 25 mg PO QID PRN Hiccups 03/28/23 06/19/23 cyanocobalamin (vitamin B-12) 1,000 mcg IM MONTHLY 03/28/23 06/19/23 1,000 mcg/mL injection solution fluticasone propionate 230 2 puff inhalation BID 03/28/23 06/19/23 mcg-salmeterol 21 mcg/actuation HFA inhaler (Advair HFA) folic acid 1 mg tablet 1 mg PO DAILY 03/28/23 06/19/23 lorazepam 0.5 mg tablet 0.5 mg PO TID PRN Anxiety 03/28/23 06/19/23 ondansetron HCl 8 mg tablet 8 mg PO TID PRN Nausea And Vomiting 03/28/23 06/19/23 umeclidinium 62.5 mcg/actuation 1 inh inhalation DAILY 03/28/23 06/19/23 blister powder for inhalation (Incruse Ellipta) gabapentin 300 mg capsule 300 mg PO TID 05/18/23 06/19/23 Magic Mouthwash 300 mL mouthwash 10 ml mucous membrane ACHS PRN 05/28/23 06/19/23 dysphagiea morphine 20 mg/5 mL (4 mg/mL) oral 10 mg PO Q4H PRN If 30mg immediate 05/28/23 06/19/23 solution release doesn't help pain morphine 30 mg immediate release 30 mg PO Q4H PRN If 30mg extended 05/28/23 06/19/23 tablet release doesn't help pain morphine 30 mg tablet,extended 30 mg PO BID 06/16/23 06/19/23 release baclofen 10 mg tablet 10 mg PO TID 06/19/23 06/19/23 potassium chloride 20 mEq 20 meq PO QAM 06/19/23 06/19/23 tablet,extended release(part/cryst) spironolactone 100 mg tablet 200 mg PO BID 06/19/23 06/19/23 Previous Rx's Medication Instructions Recorded pantoprazole 40 mg tablet,delayed 40 mg PO BID #90 tabs 04/28/23 release benzonatate 100 mg capsule 100 mg PO TID PRN Cough #60 caps 05/28/23 Results & Data (ED) Vital Signs Vital Signs - 24 hr 06/19/23 11:45 06/19/23 11:55 06/19/23 11:55 Temperature 36.8 C Temperature Source Temporal Artery Scan Pulse Rate 79 107 H Pulse Rate from SpO2 Sensor 78 Respiratory Rate 18 26 H Respiratory Effort / Characteristics Non-Labored Spontaneous Respiratory Depth Normal Respiratory Pattern Regular Blood Pressure 128/67 147/95 H Blood Pressure Mean 87 129 Blood Pressure Position Sitting Pulse Oximetry 96 97 Oxygen Delivery Method Room Air Oxygen Flow Rate Sepsis Recent Fever Within 48 Hours No Sepsis New/Unexplained Change in Mental Status No Sepsis Action Taken by Nursing No Action Required 06/19/23 12:00 06/19/23 12:00 06/19/23 12:03 Temperature Temperature Source Pulse Rate 91 H 107 H Pulse Rate from SpO2 Sensor 89 Respiratory Rate 15 Respiratory Effort / Characteristics Respiratory Depth Respiratory Pattern Blood Pressure 151/90 H Blood Pressure Mean 96 Blood Pressure Position Pulse Oximetry 94 Oxygen Delivery Method Oxygen Flow Rate Sepsis Recent Fever Within 48 Hours Sepsis New/Unexplained Change in Mental Status Sepsis Action Taken by Nursing 06/19/23 12:15 06/19/23 12:30 06/19/23 12:30 Temperature Temperature Source Pulse Rate 94 H 95 H Pulse Rate from SpO2 Sensor 67 85 Respiratory Rate 22 17 Respiratory Effort / Characteristics Respiratory Depth Respiratory Pattern Blood Pressure 149/96 H Blood Pressure Mean 112 Blood Pressure Position Pulse Oximetry 95 93 Oxygen Delivery Method Oxygen Flow Rate Sepsis Recent Fever Within 48 Hours Sepsis New/Unexplained Change in Mental Status Sepsis Action Taken by Nursing 06/19/23 12:45 06/19/23 13:00 06/19/23 13:00 Temperature Temperature Source Pulse Rate 98 H 96 H Pulse Rate from SpO2 Sensor 76 70 Respiratory Rate 18 18 Respiratory Effort / Characteristics Respiratory Depth Respiratory Pattern Blood Pressure 154/90 H Blood Pressure Mean 118 Blood Pressure Position Pulse Oximetry 100 100 Oxygen Delivery Method Oxygen Flow Rate Sepsis Recent Fever Within 48 Hours Sepsis New/Unexplained Change in Mental Status Sepsis Action Taken by Nursing 06/19/23 13:08 06/19/23 13:15 06/19/23 13:30 Temperature Temperature Source Pulse Rate 97 H 94 H 100 H Pulse Rate from SpO2 Sensor 89 68 Respiratory Rate 24 10 L 20 Respiratory Effort / Characteristics Respiratory Depth Respiratory Pattern Blood Pressure Blood Pressure Mean Blood Pressure Position Pulse Oximetry 99 100 100 Oxygen Delivery Method Nasal Cannula Oxygen Flow Rate 2 Sepsis Recent Fever Within 48 Hours Sepsis New/Unexplained Change in Mental Status Sepsis Action Taken by Nursing 06/19/23 13:31 06/19/23 13:31 06/19/23 13:45 Temperature Temperature Source Pulse Rate 104 H 94 H Pulse Rate from SpO2 Sensor 54 L 79 Respiratory Rate 18 17 Respiratory Effort / Characteristics Respiratory Depth Respiratory Pattern Blood Pressure 157/115 H Blood Pressure Mean 121 Blood Pressure Position Pulse Oximetry 100 98 Oxygen Delivery Method Oxygen Flow Rate Sepsis Recent Fever Within 48 Hours Sepsis New/Unexplained Change in Mental Status Sepsis Action Taken by Nursing 06/19/23 14:00 06/19/23 14:00 06/19/23 14:15 Temperature Temperature Source Pulse Rate 93 H 98 H Pulse Rate from SpO2 Sensor 82 83 Respiratory Rate 19 19 Respiratory Effort / Characteristics Respiratory Depth Respiratory Pattern Blood Pressure 153/85 H Blood Pressure Mean 125 Blood Pressure Position Pulse Oximetry 98 97 Oxygen Delivery Method Oxygen Flow Rate Sepsis Recent Fever Within 48 Hours Sepsis New/Unexplained Change in Mental Status Sepsis Action Taken by Nursing 06/19/23 14:44 06/19/23 14:44 06/19/23 14:45 Temperature Temperature Source Pulse Rate 93 H 88 Pulse Rate from SpO2 Sensor 93 H 88 Respiratory Rate 21 17 Respiratory Effort / Characteristics Respiratory Depth Respiratory Pattern Blood Pressure 139/84 Blood Pressure Mean 99 Blood Pressure Position Pulse Oximetry 97 98 Oxygen Delivery Method Oxygen Flow Rate Sepsis Recent Fever Within 48 Hours Sepsis New/Unexplained Change in Mental Status Sepsis Action Taken by Nursing Laboratory Data 06/19/23 13:38 06/19/23 13:38 Lab Results 06/19/23 06/19/23 Range/Units 13:38 14:48 WBC 7.56 (4.8-10.8) K/ul RBC 3.74 L (4.20-5.40) M/uL Hgb 11.6 L (12.0-16.0) g/dl Hct 36.3 L (37.0-47.0) % MCV 97.1 (80.0-100.0) fL MCH 31.0 (25.0-34.0) pg MCHC 32.0 (32.0-36.0) g/dL RDW Std Deviation 54.0 H (36.4-46.3) fL RDW Coeff of Saritha 15.3 H (11.5-14.5) % Plt Count 208 (130-400) K/uL MPV 9.7 (9.4-12.4) fL Immature Gran % (Auto) 0.5 % Neut % (Auto) 75.8 % Lymph % (Auto) 15.5 % Mckinley % (Auto) 6.7 % Eos % (Auto) 1.2 % Baso % (Auto) 0.3 % Neut # (Auto) 5.73 (1.40-6.50) K/uL Lymph # (Auto) 1.17 L (1.20-3.40) K/uL Mck[place]ley # (Auto) 0.51 (0.11-0.59) K/uL Eos # (Auto) 0.09 (0.00-0.50) K/uL Baso # (Auto) 0.02 (0.00-0.20) K/uL Immature Gran # (Auto) 0.04 (0.01-0.20) K/uL Sodium 138 (136-145) mmol/L Potassium 3.4 L (3.5-5.1) mmol/L Chloride 101 (98-107) mmol/L Carbon Dioxide 28 (21-32) mmol/L Anion Gap 9 (3-11) BUN 8 (6-23) mg/dl Creatinine 0.61 (0.6-1.2) mg/dl Est Cr Clr Drug Dosing Not Reportable Est GFR ( Amer) 126.9 ml/min Est GFR (Non-Af Amer) 109.5 ml/min BUN/Creatinine Ratio 13.1 (10-20) Glucose 95 (70-99(Fasting)) mg/dl Calcium 8.8 (8.6-10.3) mg/dl Total Bilirubin 0.6 (0.2-1.0) mg/dl AST 9 L (13-39) U/L ALT 4 L (7-52) U/L Alkaline Phosphatase 80 (34-104) U/L Troponin I High Sens 4.5 (0-14) pg/ml Total Protein 6.4 (6.0-8.3) gm/dl Albumin 3.1 L (3.4-5.0) gm/dl Globulin 3.3 (2.5-4.0) gm/dl Albumin/Globulin Ratio 0.9 (0.9-2) Lipase 9 L (11-82) U/L Urine Color Yellow Urine Appearance Clear (Clear) Urine pH 8.0 H (4.5-7.5) Ur Specific [place] 1.010 (1.000-1.030) Urine Protein Negative (Negative) Urine Glucose (UA) Negative (Negative) Urine Ketones Negative (Negative) Urine Blood Negative (Negative) Urine Nitrite Negative (Negative) Urine Bilirubin Negative (Negative) Urine Urobilinogen Negative (Negative) Ur Leukocyte Esterase Negative (Negative) Administered Medications Acetaminophen (Acetaminophen 325 Mg Tab) 650 mg PO Q4H PRN PRN Reason: Moderate Pain (Scale 4, 5, 6) Stop: 07/19/23 17:13 Last Admin: 06/19/23 19:53 Dose: 650 mg Documented By: SHIVANI Baclofen (Baclofen 10 Mg Tab) [address] [facility] Stop: 07/19/23 20:59 Last Admin: 06/19/23 19:48 Dose: 10 mg Documented By: SHIVANI Bisacodyl (Bisacodyl 5 Mg Tabec) [address] [facility] Stop: 07/19/23 17:13 Last Admin: 06/19/23 18:29 Dose: Not Given Documented By: KATHI Fentanyl (Fentanyl 25 Mcg/Hr Tdsy) [address] [facility] Stop: 07/03/23 15:59 Last Admin: 06/19/23 16:09 Dose: 25 mcg Documented By: XAVIER Gabapentin (Gabapentin 300 Mg Cap) [address] [facility] Stop: 07/19/23 20:59 Last Admin: 06/19/23 19:47 Dose: Not Given Documented By: SHIVANI Hydromorphone HCl (Hydromorphone Inj 1 Mg/Ml Syringe) 1 mg IV Q4H PRN PRN Reason: Pain Stop: 07/03/23 17:13 Last Admin: 06/19/23 18:31 Dose: 1 mg Documented By: KATHI Miscellaneous (Check Fentanyl Patch Placement) 1 each N/A QS [facility] Stop: 07/19/23 15:59 Last Admin: 06/19/23 17:17 Dose: 1 each Documented By: KATHI Parkercellaneous (Fentanyl Patch Remove & Waste) 1 each N/A Q3D [facility] Stop: 07/19/23 15:59 Last Admin: 06/19/23 17:17 Dose: Not Given Documented By: KATHI Morphine Sulfate (Morphine Sulfate Ir 15 Mg Tab (Immediate Release)) 30 mg PO Q4H PRN PRN Reason: If 30mg extended release doesn't help pain Stop: 07/03/23 17:13 Last Admin: 06/19/23 17:57 Dose: 30 mg Documented By: KATHI Pantoprazole Sodium (Pantoprazole 40 Mg Tab) 40 mg PO BID MATI Stop: 07/19/23 20:59 Last Admin: 06/19/23 19:48 Dose: 40 mg Documented By: SHIVANI Polyethylene Glycol (Polyethylene (Miralax) 17 Gm Pack) 17 gm PO DAILY MATI Stop: 07/19/23 17:13 Last Admin: 06/19/23 18:31 Dose: 17 gm Documented By: KATHI Sennosides (Senna 8.6 Mg Tab) 8.6 mg PO QAM MATI Stop: 07/19/23 17:13 Last Admin: 06/19/23 18:31 Dose: 8.6 mg Documented By: KATHI Spironolactone (Spironolactone 100 Mg Tab) 200 mg PO BID MATI Stop: 07/19/23 20:59 Last Admin: 06/19/23 21:49 Dose: 200 mg Documented By: SHIVANI Umeclidinium Marquez (Umeclidinium Marquez 62.5mcg/Blister 7 Puffs/Inhaler) 1 puffs INH DAILY MATI Stop: 07/19/23 17:29 Last Admin: 06/19/23 18:31 Dose: 1 puffs Documented By: KATHI Discontinued Medications Dexamethasone (Dexamethasone Sod Inj 4 Mg/Ml Vial) 8 mg IV NOW STA Stop: 06/19/23 15:30 Last Admin: 06/19/23 15:48 Dose: 8 mg Documented By: Hydromorphone HCl (Hydromorphone Inj 1 Mg/Ml Syringe) 1 mg IV Q15M PRN PRN Reason: Pain Stop: 07/03/23 14:19 Last Admin: 06/19/23 15:37 Dose: 1 mg Documented By: Admin: 06/19/23 14:45 Dose: 1 mg Documented By: CHIDI Sodium Chloride (Nss) 500 mls @ 999 mls/hr IV .Q31M STA Stop: 06/19/23 13:37 Last Admin: 06/19/23 14:46 Dose: Not Given Documented By: SRL Sodium Chloride (Nss) 1,000 mls @ 999 mls/hr IV .Q1H1M ONE Stop: 06/19/23 15:20 Last Infusion: 06/19/23 15:55 Dose: Infused Documented By: Admin: 06/19/23 14:45 Dose: 999 mls/hr Documented By: CHIDI Ondansetron HCl (Ondansetron Inj 2 Mg/Ml 2 Ml Vial) 4 mg IV NOW STA Stop: 06/19/23 14:21 Last Admin: 06/19/23 14:45 Dose: 4 mg Documented By: CHIDI Imaging Data Radiologist's Impression: Chest X-Ray 06/19/23 13:08 XR chest 1V portable HISTORY: Atypical chest pain. COMPARISON: Chest 04/27/2023. FINDINGS: No pneumothorax. No pleural effusions. The heart remains mildly enlarged. A right jugular Port-A-Cath terminates at the SVC. Right lung nodules are again noted. Right lung linear densities persist and favor subsegmental atelectasis or scarring. No new focal lung consolidations to suggest a pneumonia. No evidence for pulmonary edema. IMPRESSION: No significant change compared to the prior study. No acute process. Right lung nodules and cardiomegaly persist. ACT 112: Negative or not required by law. Electronically signed by: Kofi Tafoya M.D. 06/19/2023 2:48 PM Hip/Pelvis X-Ray 06/19/23 14:23 XR hip LT 2V w pelvis CLINICAL HISTORY: pain, hx of lung ca COMPARISON: CT of the abdomen and pelvis June 03, 2023. FINDINGS: No acute fracture within the pelvis or hips is identified. Hip joint spaces are preserved. There is mild osteophytosis of the hips. No evidence for avascular necrosis of the femoral heads. No suspicious lesions within the left hip are identified. A mixed lytic and sclerotic lesion within the right superior pubic ramus on CT of June 03 is not well-visualized by radiography. IMPRESSION: 1. No fractures within the pelvis or hips. 2. No suspicious lesions within the left hip by radiography. 3. Mixed lytic and sclerotic lesion within the right superior pubic ramus on CT of June 03, 2023 is not evident radiographically. ACT 112: Negative or not required by law. Electronically signed by: Dewey Reza M.D. 06/19/2023 4:23 PM Discharge Plan Visit Data Chief Complaint: Pain (Generalized) Stated Complaint: WEAKNESS, ILLNESS, GEN PAIN, JAW PAIN/NUMBNESS ED Provider: River Villavicencio Discharge Problem: Metastatic adenocarcinoma, Cancer-related breakthrough pain Patient Disposition: Admitted As Inpatient Discharge Instructions Interventions: ED Discharge Assessment Last Done: 06/19/23 16:47
[2023-06-19] MEDS ORDERED: SODIUM CHLORIDE 0.9% 1,000 ML IV ONE (14:20)
[2023-06-19] MEDS ORDERED: ONDANSETRON INJ 2 MG/ML 2 ML VIAL IV STA (14:20)
[2023-06-19] MEDS: HYDROmorphone INJ 1 MG/ML SYRINGE IV PRN ×4 (14:45→22:27)
--- NOTE | 2023-06-19 14:50 | XRay Report ---
XR chest 1V portable HISTORY: Atypical chest pain. COMPARISON: Chest 04/27/2023. FINDINGS: No pneumothorax. No pleural effusions. The heart remains mildly enlarged. A right jugular P ort-A-Cath terminates at the SVC. Right lung nodules are again noted. Right lung linear densities per sist and favor subsegmental atelectasis or scarring. No new focal lung consolidations to suggest a pn eumonia. No evidence for pulmonary edema. IMPRESSION: No significant change compared to the prior study. No acute process. Right lung nodules and cardiomeg francois persist. ACT 112: Negative or not required by law. Electronically signed by: Kofi Tafoya M.D. 06/19/2023 2:48 PM
[2023-06-19 15:00] LABS: Appearance Urine Clear (Clear); Bilirubin Urine Negative (Negative); Blood Urine Negative (Negative); Color Urine Yellow; Glucose Urine UA Negative (Negative); Ketones Urine Negative (Negative); Leukocyte Esterase Urine Negative (Negative); Nitrite Urine Negative (Negative); Protein Urine Negative (Negative); Urobilinogen Urine Negative (Negative)
--- NOTE | 2023-06-19 15:02 | History & Physical Report ---
Date of Service June 19, 2023 Assessment & Plan (1) Primary adenocarcinoma of upper lobe of right lung: (2) Cancer-related breakthrough pain: (3) Lung cancer metastatic to brain: (4) Metastatic adenocarcinoma: (5) Tobacco abuse: (6) Systemic lupus erythematosus: Plan: Ms. Lowe is a 43 yo F, PMHx includes HTN, lung adenocarcinoma with bone and brain mets status post chemo/radiation, PEoff of anticoagulationdue to brain mets vasogenic edema, chronic pancytopenia [baseline hemoglobin around 8-9], endometrial cancer status post surgery, prediabetes, SLE, cancer pain on narcotics, ADD/mood disorder, pseudocholinesterase deficiency,esophageal ulcers as per records, ongoing tobacco abuse. Presents with inadequately controlled pain. NSCLC with mets to bone and brain s/p chemo, XRT PE off anticoagulationdue to brain mets vasogenic edema Chronic Pancytopenia Hx of endometrial cancer Chronic narcotic use - Admit to med surg with tele -NSCLC on immunotherapy with keytruda last dose on 06/09/23, gets every 2 week infusion at the [facility]. Primary oncologist Dr. Phillip -patient with significant uncontrolled pain secondary to primary lung adenocarcinoma with mets to multiple areas of bone including the thoracic, lumbar, right hip, and brain. -X-ray of the left hip is pending to eval for osseous metastasis as this is the primary region of most pain currently -Home medications include MS ER 30 mg BID and MS IR 30 mg Q6H prn breakthrough pain. Reviewed by PDMP personally. -Will hold MS ER as will initiate fentanyl patch 25 mcg now, may continue MS IR, IV Dilaudid for breakthrough pain -Start dexamethasone 8 mg IV now, was on 4 mg p.o. for past 48 hours without significant improvement, did not take steroid today at home -Continue bowel regimen, last BM 2 days ago -Continue Ativan as needed anxiety -Consult palliative care and oncology service for assistance with pain regimen and goals of care Chronic tobacco use -Cessation counseled, patient is smoking 1 PPD still -Wearing 2L via NC, O2 sat stable, wears at bedtime but increased up to 2.5-3 L at home recently due to feeling better with higer level. Monitor SLE - Chronic, stable Prediabetes - Chronic, stable - allow regular diet in this setting currently DVT ppx:teds, scds Lines: Mediport access right upper chest wall. Maintain 1 PIV. Diet: Regular diet CODE: FULL Dispo: From home, likely to remain in the hospital x 1-2 days pending adequate pain relief History of Present Illness Chief Complaint: Intractable pain Primary Care Provider: Josue Blake MD This is a 43 yo F with PMHx NSCLC with mets to bone and brain, s/p chemo and XRT, on immunotherapy with keytruda last dose on 06/09/23, gets every 2 week infusion at the [facility]. Other PMHx includes HTN, PEoff of anticoagulationdue to brain mets vasogenic edema, chronic pancytopenia [baseline hemoglobin around 8-9], endometrial cancer status post surgery, prediabetes, SLE, cancer pain on narcotics, ADD/mood disorder, pseudocholinesterase deficiency,esophageal ulcers as per records, ongoing tobacco abuse. Mrs. Lowe follows with oncologist Dr. Brizuela, and is transitioning with another physician as Gelacio is retiring at the end of this year. She was here in the ER only 3 days ago for similar complaints of uncontrolled pain, however her states that she lied during that visit about her pain relief because of the holiday season and not wanting to be admitted into the hospital. Today her pain is worse, uncontrolled and is agreeable to admission for pain control. She reports that her pain is across her lower back her left hip area and shoots a throbbing stabbing pain down the entirety of her leg. It has been difficult to control even with morphine sulfate and morphine IR. Here in the ER she has had minimal relief with frequent doses of IV Dilaudid. She reports having taken immediate release MS today, but didn't get her continued release dose. About 2 days ago, she was given a Rx of dexamethasone 4 mg po, but notes that she didn't see relief with starting this. She admits to continuingly smoking, 1 pack/day, reports that only Ativan helps her stop her smoking. She has not been eating or drinking very well due to pain, stating currently that she is very thirsty. Patient has been taking her other medications routinely other than not getting any of them this morning due to her significant pain level. Her last bowel movement was 2 days ago and admits to intermittent constipation. Pt does require supplemental O2 at bedtime and wears 2L, recently she has turned this up to 2.5-3 L at bedtime and is intermittently wearing it during the day because she feels better with it on. CODE STATUS was discussed with her and her at bedside and she adamantly wants to remain a full code. Patient is agreeable to holding MS ER and transitioning to fentanyl patch, will continue MS IR as needed moderate pain and IV Dilaudid as needed severe breakthrough pain relief. Allergies Allergy/AdvReac Type Severity Reaction Status Date / Time levofloxacin [From Levaquin] Allergy Severe THROAT Verified 06/16/23 18:22 SWELLS SHUT, ITCHY--RASH PER [facility] Penicillins Allergy Severe Anaphylaxis Verified 06/16/23 18:22 clindamycin Allergy Intermediate CAUSED A Verified 06/16/23 18:22 YEAST INFECTION X 6 MONTHS povidone-iodine Allergy Intermediate Rash Verified 06/16/23 18:22 [From Betadine] silver Allergy Intermediate Rash Verified 06/16/23 18:22 [From Tegaderm AG Mesh] bupropion [From Wellbutrin] AdvReac Severe suicidal Verified 06/16/23 18:22 ideation duloxetine AdvReac Severe suicidal Verified 06/16/23 18:22 ideations sulfamethoxazole AdvReac Mild YEAST Verified 06/16/23 18:22 [From Bactrim] INFECTION trimethoprim [From Bactrim] AdvReac Mild YEAST Verified 06/16/23 18:22 INFECTION ANESTHESIA AdvReac Severe PER Uncoded 06/16/23 18:22 [facility]--PSEUDOCHLOINESTERASE---FLAT LINES PLASTIC AdvReac Severe SKIN PEELS Uncoded 06/16/23 18:22 Home Medications Medication Instructions Recorded Confirmed Type albuterol sulfate 2.5 mg/3 mL 2.5 mg inhalation Q4H PRN 03/28/23 06/19/23 History (0.083 %) solution for nebulization Shortness Of Breath Or Wheezing albuterol sulfate 90 mcg/actuation 2 puff inhalation Q4H PRN 03/28/23 06/19/23 History aerosol inhaler (Ventolin HFA) Shortness Of Breath Or Wheezing chlorpromazine 25 mg tablet 25 mg PO QID PRN Hiccups 03/28/23 06/19/23 History cyanocobalamin (vitamin B-12) 1,000 mcg IM MONTHLY 03/28/23 06/19/23 History 1,000 mcg/mL injection solution fluticasone propionate 230 2 puff inhalation BID 03/28/23 06/19/23 History mcg-salmeterol 21 mcg/actuation HFA inhaler (Advair HFA) folic acid 1 mg tablet 1 mg PO DAILY 03/28/23 06/19/23 History lorazepam 0.5 mg tablet 0.5 mg PO TID PRN Anxiety 03/28/23 06/19/23 History ondansetron HCl 8 mg tablet 8 mg PO TID PRN Nausea And Vomiting 03/28/23 06/19/23 History umeclidinium 62.5 mcg/actuation 1 inh inhalation DAILY 03/28/23 06/19/23 History blister powder for inhalation (Incruse Ellipta) pantoprazole 40 mg tablet,delayed 40 mg PO BID #90 tabs 04/28/23 06/19/23 Rx release gabapentin 300 mg capsule 300 mg PO TID 05/18/23 06/19/23 History Magic Mouthwash 300 mL mouthwash 10 ml mucous membrane ACHS PRN 05/28/23 06/19/23 History dysphagiea benzonatate 100 mg capsule 100 mg PO TID PRN Cough #60 caps 05/28/23 06/19/23 Rx morphine 20 mg/5 mL (4 mg/mL) oral 10 mg PO Q4H PRN If 30mg immediate 05/28/23 06/19/23 History solution release doesn't help pain morphine 30 mg immediate release 30 mg PO Q4H PRN If 30mg extended 05/28/23 06/19/23 History tablet release doesn't help pain morphine 30 mg tablet,extended 30 mg PO BID 06/16/23 06/19/23 History release baclofen 10 mg tablet 10 mg PO TID 06/19/23 06/19/23 History potassium chloride 20 mEq 20 meq PO QAM 06/19/23 06/19/23 History tablet,extended release(part/cryst) spironolactone 100 mg tablet 200 mg PO BID 06/19/23 06/19/23 History Past Med/Surg History Medical History Pneumonia Fever Chest fullness Dysphasia Pneumonia Chest pain Community acquired pneumonia Chronic low back pain Chronic cough Pseudocholinesterase deficiency Encounter for pre-operative examination Pancytopenia Primary adenocarcinoma of upper lobe of right lung (10/03/22) Endometriosis of the uterus, unspecified Asthma ADHD Tobacco abuse Systemic lupus erythematosus Surgical History H/O right wrist surgery H/O: hysterectomy History of cholecystectomy Hx of appendectomy H/O tubal ligation S/P bronchoscopy Family History Mother Cancer Breast Grandmother (Maternal) Cancer Lung Social History Smoking Status: Former smoker Tobacco Type: Cigarettes Cigarettes Per Day: 1 ppd; Second Hand Exposure: Yes; Do You Dip or Chew Tobacco: No; Hx Alcohol Use: No Hx Substance Use: No Preferred Language: [place] Communication Ability: Effective Visual Impairment: No Limitations Hearing Ability: Normal Job Foreman Required: No Beliefs That Will Affect Care: None marital status: Single Current Living Situation: Spouse Current Living Situation Comment: engaged current occupational status: unemployed 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 Feels Safe at Home: Yes Diet: regular during the past year weight has: remained stable Assistive Devices: Bedside Commode, Oxygen - at Night and Walker Review of Systems Review of Systems: Constitutional: No fever, sweats or chills Eyes: No diplopia, no worsening or blurred vision ENT: normal hearing, no trouble swallowing Respiratory: No cough, sputum, dyspnea at rest or on exertion Cardiovascular: No chest pain, tightness or palpitations Abdomen: No pain, nausea, vomiting, diarrhea or constipation Back: Lower back pain Musculoskeletal: Left hip joint pain, radiation down the left leg as per HPI, no calf pain, swelling Neurologic: No weakness, numbness/tingling, or balance problems, uses wheelchair/hold onto furniture in her home to help with ambulation. Denies any recent falls Psychiatric: + anxiety, denies depression Skin: No rash or itch Physical Exam Physical Exam: General: awake, alert, no apparent distress, alopecia, chronically ill-appearing white female Head: Normocephalic, atraumatic ENT: PERRL, EOMI, no pharyngeal exudate, +mucous membranes slightly dry Chest: Clear to auscultation, on room air, no adventitious breath sounds on to L via NC with O2 sats in mid 90s Cardiac: Regular rhythm, slightly tachycardic with heart rate in the low 100s, no murmur, no JVD, normal peripheral pulses, good capillary refill Abdominal: NABS x 4 quadrants, soft, nondistended, nontender to palpation, no rebound or guarding Extremities: Normal inspection, no peripheral edema or erythema, calfs nontender to palpation, patient will not allow me to examine her left hip due to pain. She moves about in bed without difficulty attempting to get comfortable throughout exam. Psych: Anxious and intermittently tearful mood and affect Neuro: AAO x 3, strength intact bilaterally and rated 5/5, no motor deficits, speech is clear, no peripheral sensory deficits Results & Data Results & Data Vital Signs (Past 12 Hours) Vital Signs Temp Pulse Resp BP Pulse Ox O2 Del Method O2 Flow Rate 06/19/23 14:45 88 17 98 06/19/23 14:44 93 H 21 97 06/19/23 14:44 139/84 06/19/23 14:15 98 H 19 97 06/19/23 14:00 153/85 H 06/19/23 14:00 93 H 19 98 06/19/23 13:45 94 H 17 98 06/19/23 13:31 104 H 18 100 06/19/23 13:31 157/115 H 06/19/23 13:30 100 H 20 100 06/19/23 13:15 94 H 10 L 100 06/19/23 13:08 97 H 24 99 Nasal Cannula 2 06/19/23 13:00 96 H 18 100 06/19/23 13:00 154/90 H 06/19/23 12:45 98 H 18 100 06/19/23 12:30 149/96 H 06/19/23 12:30 95 H 17 93 06/19/23 12:15 94 H 22 95 06/19/23 12:03 107 H 06/19/23 12:00 151/90 H 06/19/23 12:00 91 H 15 94 06/19/23 11:55 107 H 26 H 97 06/19/23 11:55 147/95 H 06/19/23 11:45 36.8 C 79 18 128/67 96 Room Air Laboratory Results 06/19/23 06/19/23 14:48 13:38 WBC 7.56 RBC 3.74 L Hgb 11.6 L Hct 36.3 L MCV 97.1 MCH 31.0 MCHC 32.0 RDW Std Deviation 54.0 H RDW Coeff of Saritha 15.3 H Plt Count 208 MPV 9.7 Immature Gran % (Auto) 0.5 Neut % (Auto) 75.8 Lymph % (Auto) 15.5 [place] % (Auto) 6.7 Eos % (Auto) 1.2 Baso % (Auto) 0.3 Neut # (Auto) 5.73 Lymph # (Auto) 1.17 L [place] # (Auto) 0.51 Eos # (Auto) 0.09 Baso # (Auto) 0.02 Immature Gran # (Auto) 0.04 Sodium 138 Potassium 3.4 L Chloride 101 Carbon Dioxide 28 Anion Gap 9 BUN 8 Creatinine 0.61 Est Cr Clr Drug Dosing Not Reportable Est GFR ( Amer) 126.9 Est GFR (Non-Af Amer) 109.5 BUN/Creatinine Ratio 13.1 Glucose 95 Calcium 8.8 Total Bilirubin 0.6 AST 9 L ALT 4 L Alkaline Phosphatase 80 Troponin I High Sens 4.5 Total Protein 6.4 Albumin 3.1 L Globulin 3.3 Albumin/Globulin Ratio 0.9 Lipase 9 L Urine Color Yellow Urine Appearance Clear Urine pH 8.0 H Ur Specific [place] 1.010 Urine Protein Negative Urine Glucose (UA) Negative Urine Ketones Negative Urine Blood Negative Urine Nitrite Negative Urine Bilirubin Negative Urine Urobilinogen Negative Ur Leukocyte Esterase Negative Diagnostic Findings Chest X-Ray 06/19/23 13:08 XR chest 1V portable HISTORY: Atypical chest pain. COMPARISON: Chest 04/27/2023. FINDINGS: No pneumothorax. No pleural effusions. The heart remains mildly enlarged. A right jugular Port-A-Cath terminates at the SVC. Right lung nodules are again noted. Right lung linear densities persist and favor subsegmental atelectasis or scarring. No new focal lung consolidations to suggest a pneumoni a. No evidence for pulmonary edema. IMPRESSION: No significant change compared to the prior study. No acute process. Right lung nodules and cardiomegaly persist. ACT 112: Negative or not required by law. Electronically signed by: Kofi Tafoya M.D. 06/19/2023 2:48 PM ECG Additional Comments: Reviewed personally showing NSR, few PVCs, QTc is borderline prolonged at 477. Code Status & VTE Plan Code Status Full code-discussed with the patient and her at bedside Supervising Physician Co-Signing Physician Notes I have seen and discussed the case with the collaborating CARLA. I agree with the above H&P. I have reviewed and confirmed the patients medical history, the findings on physical examination, and the patients diagnosis and treatment plan with Clarissa AGUIRRE and agree with the information documented. In short, Ms. Lowe is a 43-year-old woman with PMH of HTN, lung adenocarcinoma with bone and brain mets status post chemo/radiation therapy, PEoff of anticoagulation due to brain mets vasogenic edema, chronic pancytopenia [baseline hemoglobin around 8-9], endometrial cancer status post surgery, prediabetes, SLE, cancer pain on narcotics, ADD/mood disorder, pseudocholinesterase deficiency, esophageal ulcers as per records, ongoing tobacco abuse who is being admitted for pain management in the setting of increased opioid needs due to progressive, metastatic cancer. Patient recently in ED on 06/16 and pain imrpoved with IV dilaudid; however, after a follow up with palliative care on 06/19, her increased pain regimen not helping. Pain is mostly isolated in left hip, radiating down left leg and into pelvis. Physical exam limited secondary to patient's pain concerns. Otherwise, unremarkable exam. No neurologic deficits apparent, CNII-XII in tact. PERRLA. Plan Uncontrolled pain 2/2 metastatic adenocarcinoma -Started on 4mg po Dex per palliative op with baclofen, in addition of PO morphine regimen -IV dex 8mg daily for metastatic related disease -Start fentanyl patch, hold long acting home regimen, keep prns for breakthrough -Palliative for pain management in setting of progressive metastatic disease -Bowel regimen Rest of plan as above (6) Systemic lupus erythematosus Systemic lupus erythematosus organ involvement: unspecified Systemic lupus erythematosus type: unspecified Qualified Code(s): M32.9 - Systemic lupus erythematosus, unspecified
[2023-06-19] MEDS ORDERED: DEXAMETHASONE SOD INJ 4 MG/ML VIAL IV STA (15:29)
--- OUTSIDE RECORDS SUMMARY | 2023-06-19 15:59 | External Medical Summary | Summary of Care ---
Author Name Unknown Organization [facility] Address [address] [place] [address] Phone [phone] Care Team Providers Care Family Services Specialist Name Role Phone Josue Blake MD Primary Care Provider [phone] Reason for Visit * Reason Onset Date Comments Abnormal Lab Results 06/18/2023 K Encounter Details Date Type Department Care Team (Late st Contact Info) Description 06/18/2023 Telephone Hematology/Oncology [facility] [address] [place] [address] Richard David MD [address] [place] [address] Abnormal Lab Results (K) Allergies Active Allergy Reactions Criticality Noted Date Comments Adhesive Tape Rash 12/08/2012 tegaderm and all plastic tape Sulfamethoxazole-Trimeth oprim Medium 06/05/2022 yeast infection Povidone Iodine 12/08/2012 Rash Bupropion High 10/24/2022 Other Reaction(s): suicidal ideation Clindamycin 01/28/2023 Yeast infection x 6 months Duloxetine High 02/07/2023 Other Reaction(s): suicidal ideations Latex 07/11/2022 Levofloxacin Rash 10/24/2020 Other Allergy (See Comments) High 04/07/2016 Anesthesia -- pseudocholinesterase deficiency caused "flatlining" during an emergency surgery Penicillins 12/08/2012 Trouble breathing, rash Silver High 03/04/2023 Other Reaction(s): Rash Sulfamethoxazole Low 03/04/2023 Other Reaction(s): YEAST INFECTION Trimethoprim Low 03/04/2023 Other Reaction(s): YEAST INFECTION documented as of this encounter (statuses as of 06/18/2023) Medications Medication Sig Dispensed Refills Start Date End Date Status BD Luer-Tamar Syringe 25G X 1" 3 ML (Syringe/Needle (Disp)) USE ONE SYRINGE FOR B12 INJECTIONS Strength: 25G X 1" 3 ML 1 Each 11 09/16/2022 Active Promethazine HCl 25 MG Oral Tablet (Phenergan) Take 1 Tablet by mouth every 6 hours as needed for Nausea. or vomiting 12 Tablet 0 10/15/2022 Active Additional Information Patient taking differently: 12.5 mgOral Q6H PRN, Nausea, or vomiting, Reported on 01/28/2023 Spironolactone 100 MG Oral Tablet (Aldactone) TAKE TWO TABLETS BY MOUTH IN THE MORNING AND TWO TABLETS BEFORE BEDTIME 120 Tablet 2 01/09/2023 Active Umeclidinium [place] 62.5 MCG/ACT Inhalation Aerosol Powder Breath Activated (INCRUSE ellipta)Indications :COPD, severity to be determined (HCC) Inhale 1 Puff by mouth in the morning. 30 Each 01/29/2023 Active Alum & Mag Hydroxide-Simeth (MAGIC MOUTHWASH) OR 10ml TO mucosal AREA BEFORE meals AND AT BEDTIME 0 01/24/2023 Active Chantix Starting Month Michael 0.5 MG X 11 & 1 MG X 42 Tablet Therapy Pack (Varenicline Tartrate (Starter))Indicatio ns:Encounter for smoking cessation counseling Follow the direction on package. Initial: Days 1 to 3: 0.5 mg once daily. Days 4 to 7: 0.5 mg twice daily. Maintenance (day 8 and later): 1 mg twice daily 53 Each 0 01/28/2023 Active Additional Information Patient not taking.Reported on 05/12/2023 Sharps Container Use as directed for disposal of sharps. 1 Each 01/28/2023 Active Additional Information Patient not taking.Reported on 06/02/2023 Bisacodyl 10 MG Rectal Suppository (Dulcolax)Indicatio ns:Constipation due to opioid therapy Administer 1 Suppository into the rectum in the morning and 1 Suppository in the evening. 24 Suppository 0 02/04/2023 Active Additional Information Patient not taking.Reported on 06/08/2023 Polyethylene Glycol 3350 17 GM/SCOOP Oral Powder (MiraLax)Indication s:Primary adenocarcinoma of upper lobe of right lung (HCC) Take 17 g by mouth in the morning and 17 g before bedtime. 255 g 0 02/04/2023 Active Sennosides 8.6 MG Oral Tablet (Senokot) Take 2 Tablets by mouth in the morning and 2 Tablets at noon and 2 Tablets before bedtime. Taking 2 at bedtime. 90 Tablet 0 02/04/2023 Active LORazepam 0.5 MG Oral Tablet (Ativan)Indications :LEAH (generalized anxiety disorder) Take 1 Tablet by mouth in the morning and 1 Tablet at noon and 1 Tablet before bedtime. 90 Tablet 0 03/10/2023 Active Additional Information Patient taking differently:0.5 mg Oral TID(AM/NOON/HS),Taking as needed, Reported on 06/08/2023 Famotidine 10 MG Oral Tablet (Pepcid)Indications :Primary adenocarcinoma of upper lobe of right lung (HCC) Take 1 Tablet by mouth in the morning and 1 Tablet before bedtime. 60 Tablet 3 03/16/2023 Active Pantoprazole Sodium 40 MG Oral Tablet Delayed Release (Protonix)Indicatio ns:Primary adenocarcinoma of upper lobe of right lung (HCC) Take 1 Tablet by mouth daily. 30 Tablet 3 03/19/2023 Active Fluticasone-Salmete rol 230-21 MCG/ACT Inhalation Aerosol (Advair)Indications :COPD, severity to be determined (HCC) Inhale 2 Puffs by mouth in the morning and 2 Puffs before bedtime. 12 g 12 03/24/2023 Active Ventolin HFA 108 (90 Base) MCG/ACT Inhalation Aerosol SolutionIndications :COPD, severity to be determined (HCC) Inhale 2 Puffs by mouth every 4 hours as needed for Cough, Shortness of Breath or Wheezing. 18 g 1 03/24/2023 Active Folic Acid 1 MG Oral TabletIndications:P rimary adenocarcinoma of upper lobe of right lung (HCC),Metastasis to mediastinal lymph node (HCC),Metastasis to bone (HCC),Metastasis to brain (HCC) Take 1 Tablet by mouth in the morning. 30 Tablet 5 03/23/2023 Active chlorproMAZINE HCl 25 MG Oral Tablet (Thorazine)Indicati ons:Primary adenocarcinoma of upper lobe of right lung (HCC),Mediastinal lymphadenopathy,Int ractable hiccups Take 1 Tablet by mouth 4 times a day as needed for Other (hiccups). 30 Tablet 0 03/24/2023 Active Ondansetron HCl 8 MG Oral Tablet (Zofran)Indications :Primary adenocarcinoma of upper lobe of right lung (HCC) Take 1 Tablet by mouth every 8 hours as needed for Nausea. 30 Tablet 1 03/23/2023 Active dexAMETHasone 4 MG Oral Tablet (Decadron)Indicatio ns:Primary adenocarcinoma of upper lobe of right lung (HCC),Metastasis to mediastinal lymph node (HCC),Metastasis to bone (HCC),Metastasis to brain (HCC) 1 tablet twice a day for 3 days starting 1 day before the chemotherapy with Alimta 24 Tablet 1 03/25/2023 Active Benzonatate 100 MG Oral Capsule (Tessalon Perles) Take 1 Capsule by mouth 3 times a day as needed for Cough. Do not cut, crush, or chew. 50 Capsule 1 06/02/2023 Active Promethazine HCl 25 MG Rectal Suppository (Phenergan)Indicati ons:Bilious vomiting with nausea Administer 1 Suppository into the rectum every 6 hours as needed for Nausea. 10 Suppository 1 06/07/2023 Active Full Kit Nebulizer Set Patient needs tubing and mask 1 Each 1 06/08/2023 Active Additional Information Patient not taking.Reported on 06/15/2023 Ipratropium-Albuter ol 0.5-2.5 (3) MG/3ML Inhalation Solution (Duoneb) Inhale 3 mL via nebulizer in the morning and 3 mL at noon and 3 mL in the evening and 3 mL before bedtime. 120 mL 1 06/10/2023 Active Additional Information Patient not taking.Reported on 06/15/2023 guaiFENesin ER 600 MG Oral Tablet Extended Release 12 Hour (Mucinex) Take 1 Tablet by mouth 2 times a day as needed for Congestion. Take with plenty of water. Do not cut, crush or chew 40 Tablet 2 06/12/2023 Active Morphine Sulfate ER 30 MG Oral Tablet Extended Release (Ms Contin)Indications: Cancer related pain Take 1 Tablet by mouth in the morning and 1 Tablet before bedtime. 30 Tablet 0 06/11/2023 Active Potassium Chloride ER 20 MEQ Oral Tablet Extended Release Take 1 Tablet by mouth in the morning. 0 Active Gabapentin 300 MG Oral Capsule (Neurontin) Take 1 Capsule by mouth in the morning and 1 Capsule at noon and 1 Capsule before bedtime. 0 Active Ibuprofen 800 MG Oral Tablet (Motrin) Take 1 Tablet by mouth every 6 hours as needed. 0 Active dexAMETHasone 4 MG Oral Tablet (Decadron)Indicatio ns:Cancer related pain Take 1 Tablet by mouth 2 times a day with morning and evening meals. 20 Tablet 0 06/17/2023 Active Morphine Sulfate 30 MG Oral Tablet (Msir)Indications:C ancer related pain Take 1 Tablet by mouth every 4 hours as needed for Pain, Breakthrough. 90 Tablet 0 06/17/2023 Active Baclofen 10 MG Oral Tablet (Lioresal)Indicatio ns:Cancer related pain Take 1 Tablet by mouth 3 times a day as needed for Muscle spasms. 30 Tablet 0 06/17/2023 Active Hospital, Clinic, or Other Facility Administered Medication Ordered Dose Route Frequency Start Date End Date Status hEParin 10,000 Units, bupivacaine (Sensorcaine) 30 mL, methylPREDNISolone sodium succ (SOLU-Medrol) 125 mg, gentamicin 80 mg, sodium bicarbonate 2 mEq bladder instillationIndications:Inter stitial cystitis IS QWEEK 08/19/2022 Active documented as of this encounter (statuses as of 06/18/2023) Active Problems Problem Noted Date Diagnosed Date SOB (shortness of breath) 06/10/2023 S/P percutaneous endoscopic gastrostomy (PEG) tube placement 05/04/2023 Esophageal ulcer 04/29/2023 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 Metastasis to bone 02/05/2023 Metastasis to brain 02/05/2023 Pulmonary embolism on right 01/07/2023 Pancytopenia due to chemotherapy 01/07/2023 Interstitial cystitis 01/07/2023 Lumbar degenerative disc disease 01/07/2023 Raynaud's disease without gangrene 12/05/2022 Primary adenocarcinoma of upper lobe of right mary ng 10/07/2022 Cancer Staging:Clinical stage from 10/16/2022:Stage IIIA(cT2b, cN2, cM0) - Signed by Miguelangel Crawford MD on 10/16/2022 Pseudocholinesterase deficiency 09/23/2022 Tobacco use disorder 04/30/2020 Obesity, Class I, BMI 30.0-34.9 (see actual BMI) 04/30/2020 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 Fibromyalgia 12/08/2012 ADHD (attention deficit hyperactivity disorder) PCOS (polycystic ovarian syndrome) Bipolar 1 disorder documented as of this encounter (statuses as of 06/18/2023) Resolved Problems Problem Noted Date Diagnosed Date Resolved Date Odynophagia 04/29/2023 05/04/2023 Food insecurity 12/08/2022 01/07/2023 Overview: Per [facility] Protocol Upper respiratory tract infection 11/12/2022 01/07/2023 Mediastinal lymphadenopathy 10/31/2022 04/26/2023 Encounter for antineoplastic chemotherapy 10/31/2022 04/26/2023 Prediabetes 05/12/2022 07/10/2022 Overview: Per Prediabetes protocol Advanced directives, counseling/discussion 07/13/2020 03/20/2022 Stress incontinence 05/04/2020 03/24/20 Urge incontinence of urine 05/04/2020 0 03/24/2022 Urinary incontinence without sensory awareness 05/04/2020 03/20/2022 Family history of breast cancer 04/30/2020 03/20/2022 Systemic lupus erythematosus 02/28/2020 01/07/2023 Subacute cutaneous lupus erythematosus 12/08/2012 03/20/2022 documented as of this encounter (statuses as of 06/18/2023) Immunizations Name Administration Dates Next Due TDAP (age 10 and older)(Boostrix) 08/27/2017 documented as of this encounter Social History Tobacco Use Types Packs/Day Years Used Date Smoking Tobacco: Every Day Cigarettes 0.3 33 Smokeless Tobacco: Never Comments:Patient reports she recently began smoking again. Knows her cancer is uncurable, and feels smoking won't make a difference in her already poor prognosis. Alcohol Use Standard Drinks/Week Comments No 0 (1 standard drink = 0.6 oz pur e alcohol) PHQ-2 Answer Date Recorded PHQ Adult Total Score 1 05/12/2023 Hunger Vital Sign Answer Date Recorded Within the past 12 months, y ou worried that your food would run out before you got the money to buy more. Never true 06/08/20 23 Within the past 12 months, t he food you bought just didn't last and you didn't have money to get more. Never true 06/08/2023 Sex and Gender Information Value Date Recorded Sex Assigned at Female 04/22/2022 10:08 AM EDT Gender Identity Female 04/22/2022 10:08 AM EDT Sexual Orientation Straight 04/22/2022 10 :08 AM EDT Job Start Date Occupation Industry Not on file Not on file Not on file documented as of this encounter Functional Status Functional Status Response Date of Assess ment Are you deaf or do you have serious difficulty h earing? No 04/28/2023 Are you blind or do you have serious difficulty seeing, even when wearing glasses? No 04/28/2023 Do you have serious difficul ty walking or climbing stairs? (5 years old or older) No 04/29/2023 Do you have difficulty dress ing or bathing? (5 years old or older) No 04/28/2023 Because of a physical, menta l, or emotional condition, do you have difficulty doing errands alone such as visiting a doctor s office or shopping? (15 years old or older) No 04/28/20 Cognitive Status Response Date of Assessm ent Because of a physical, menta l, or emotional condition, do you have serious difficulty concentrating, remembering, or making decisions? (5 years old or older) No 04/28/2023 documented as of this encounter Miscellaneous Notes * Telephone Encounter - Amrik Beltran DO - 06/18/2023 3:54 PM EST Ok to wait for pcp * Telephone Encounter - Virginia Owens RN - 06/18/2023 3:45 PM EST Sending to [facility] * Telephone Encounter - Kofi Conrad RN - 06/18/2023 3:37 PM EST ----- Message from Richard David MD sent at 06/18/2023 1:45 PM EST ----- Potassium level is 3.3. Patient taking potassium supplement? documented in this encounter Plan of Treatment Upcoming Encounters Date Type Department Care Team (Late st Contact Info) Description 06/24/2023 9:00 AM EST Scheduled Telephone Palliative Medicine, [facility] [address] [facility] [address] [place] [address] Fl, Nurse Palliative Medicine [facility] [address] [place] [address] 07/20/2023 11:00 AM EST Telemedicine [facility], [address] [place] [address] Estelle Davis PA-C [address] [place] [address] Nenita Cantu, Community Health Regulatory Technician [address] [place] [address] [place] [address] 11/02/2023 12:00 PM EDT Office Visit Family Practice [facility] [address] [address] Josue Blake MD [address] [place] [address] Health Maintenance Due Date Last Done Comments Hepatitis B (1 of 3 - 3-dose series) 1978 Lipid Panel 1978 COVID-19 Vaccine (#1) 1983 Cologuard 2023 Colonoscopy 2023 Colorectal Cancer Screening 2023 Fecal Occult Blood Test 2023 Sigmoidoscopy 2023 Mammogram 10/01/2023 09/30/2022, 06/30, 01/11/2021, Additional history exists Depression Screening 05/12/2024 05/12/2023 Diabetes Screening 06/16/2026 06/16/2023, 1 07/01/2022, 04/30/2023, Additional history exists DTaP,Tdap,and Td Vaccines (2 - Td or Tdap) 08/28/2027 08/27/2017 Pap Smear Discontinued 03/05/2022, 12/03/2020 GARDASIL-HPV IMMUNIZATION SERIES Aged Out No longer eligible based on patient's age to complete this topic MENINGOCOCCAL (MENACTRA/MENVEO) Aged Out No longer eligible based on patient's age to complete this topic documented as of this encounter Medical Devices Implanted Type Area Authors Motivational Device Identifier Shelf Expiration Date Model / Serial / Lot Desara One Single Incision Sling System Implanted:Qty: 1 on 07/11/2022 by Derek Monzon MD at OR [facility] [employer] 10/17/2023 [id number] / / [id number] Port Implant W/8f Poly Cath - [id number] Implanted:Qty: 1 on 10/27/2022 at [facility] [id number] 10/27/2023 [id number] / / [id number] Clip Padlock Pro Select - [id number] Implanted:Qty: 1 on 05/13/2023 by Destin Zhong MD at OR [facility] [id number] 03/05/2026 [id number] / / [id number] documented as of this encounter Advance Directives Latest Code Status on File Code Status Date Activated Date Inactivated Comments Full Code 04/29/2023 12:11 AM 05/01/2023 10:22 PM Thi s order reflects the patients wishes and were consensually agreed upon. Question Answer Comments Discussion of Advance Directives occurred with: Patient Does the patient have a Living Will? No Does the patient have Health Care Power of Heel Nail Rasper? No Code Status History Code Status Date Activated Date Inactivated Comments Full Code 07/11/2022 8:35 AM 07/11/2022 3:33 PM This order reflects the patients wishes and were consensually agreed upon. Question Answer Comments Discussion of Advance Directives occurred with: Patient Does the patient have a Living Will? No Does the patient have Health Care Power of Heel Nail Rasper? No Care Teams Family Services Specialist Relationship Specialty Start Date End Date Josue Blake MD [address] [address] PCP - General Family Medicine 02/06/22 documented as of this encounter
--- OUTSIDE RECORDS SUMMARY | 2023-06-19 15:59 | External Medical Summary | Summary of Care ---
Author Name Unknown Organization [facility] Address [address] [place] [address] Phone [phone] Care Team Providers Care Neuropsychiatric Aide Name Role Phone Josue Blake MD Primary Care Provider [phone] Reason for Visit * Reason Comments Follow Up Encounter Details Date Type Department Care Team (Late st Contact Info) Description 06/17/2023 2:00 PM EST Office Visit Palliative Medicine [facility] [address] [place] [address] Becky Dial MD [address] [place] [id number] Cancer related pain*; LEAH (generalized anxiety disorder) Allergies Active Allergy Reactions Criticality Noted Date [...] as of this encounter (statuses as of 06/17/2023) Medications Medication Sig Dispensed Refills Start Date End Date Status BD Luer-Tamar Syringe 25G X 1" 3 ML (Syringe/Needle (Disp)) USE ONE SYRINGE FOR B12 INJECTIONS Strength: 25G X 1" 3 ML 1 Each 09/17/19 23 Active Promethazine HCl 25 MG Oral Tablet (Phenergan) Take 1 Tablet by mouth every 6 hours as needed for Nausea. or vomiting 12 Tablet 0 10/16/19 23 Active Additional Information Patient taking differently: 12.5 mgOral Q6H PRN, Nausea, or vomiting, Reported on 01/28/2023 Spironolactone 100 MG Oral Tablet (Aldactone) TAKE TWO TABLETS BY MOUTH IN THE MORNING AND TWO TABLETS BEFORE BEDTIME 120 Tablet 2 01/10/20 23 Active Umeclidinium Hundred 62.5 MCG/ACT Inhalation Aerosol Powder Breath Activated (INCRUSE ellipta)Indication s:COPD, severity to be determined (HCC) Inhale 1 Puff by mouth in the morning. 30 Each 01/30/20 23 Active Alum & Mag Hydroxide-Simeth (MAGIC MOUTHWASH) OR 10ml TO mucosal AREA BEFORE meals AND AT BEDTIME 0 01/25/20 23 Active Chantix Starting Month Michael 0.5 MG X 11 & 1 MG X 42 Tablet Therapy Pack (Varenicline Tartrate (Starter))Indicati ons:Encounter for smoking cessation counseling Follow the direction on package. Initial: Days 1 to 3: 0.5 mg once daily. Days 4 to 7: 0.5 mg twice daily. Maintenance (day 8 and later): 1 mg twice daily 53 Each 0 01/29/20 23 Active Additional Information Patient not taking.Reported on 05/12/2023 Sharps Container Use as directed for disposal of sharps. 1 Each 01/29/20 Active Additional Information Patient not taking.Reported on 06/02/2023 Bisacodyl 10 MG Rectal Suppository (Dulcolax)Indicati ons:Constipation due to opioid therapy Administer 1 Suppository into the rectum in the morning and 1 Suppository in the evening. 24 Suppository 0 02/05/20 23 Active Additional Information Patient not taking.Reported on 06/08/2023 Polyethylene Glycol 3350 17 GM/SCOOP Oral Powder (MiraLax)Indicatio ns:Primary adenocarcinoma of upper lobe of right lung (HCC) Take 17 g by mouth in the morning and 17 g before bedtime. 255 g 0 02/05/20 Active Sennosides 8.6 MG Oral Tablet (Senokot) Take 2 Tablets by mouth in the morning and 2 Tablets at noon and 2 Tablets before bedtime. Taking 2 at bedtime. 90 Tablet 0 02/05/20 23 Active LORazepam 0.5 MG Oral Tablet (Ativan)Indication s:LEAH (generalized anxiety disorder) Take 1 Tablet by mouth in the morning and 1 Tablet at noon and 1 Tablet before bedtime. 90 Tablet 0 03/10/20 Active Additional Information Patient taking differently:0.5 mg Oral TID(AM/NOON/HS),Taking as needed, Reported on 06/08/2023 Famotidine 10 MG Oral Tablet (Pepcid)Indication s:Primary adenocarcinoma of upper lobe of right lung (HCC) Take 1 Tablet by mouth in the morning and 1 Tablet before bedtime. 60 Tablet 3 03/16/20 23 Active Pantoprazole Sodium 40 MG Oral Tablet Delayed Release (Protonix)Indicati ons:Primary adenocarcinoma of upper lobe of right lung (HCC) Take 1 Tablet by mouth daily. 30 Tablet 3 03/19/20 23 Active Fluticasone-Salmet bang 230-21 MCG/ACT Inhalation Aerosol (Advair)Indication s:COPD, severity to be determined (HCC) Inhale 2 Puffs by mouth in the morning and 2 Puffs before bedtime. 12 g 12 03/24/20 23 Active Ventolin HFA 108 (90 Base) MCG/ACT Inhalation Aerosol SolutionIndication s:COPD, severity to be determined (HCC) Inhale 2 Puffs by mouth every 4 hours as needed for Cough, Shortness of Breath or Wheezing. 18 g 1 03/24/20 23 Active Folic Acid 1 MG Oral TabletIndications: Primary adenocarcinoma of upper lobe of right lung (HCC),Metastasis to mediastinal lymph node (HCC),Metastasis to bone (HCC),Metastasis to brain (HCC) Take 1 Tablet by mouth in the morning. 30 Tablet 5 03/23/20 23 Active chlorproMAZINE HCl 25 MG Oral Tablet (Thorazine)Indicat ions:Primary adenocarcinoma of upper lobe of right lung (HCC),Mediastinal lymphadenopathy,In tractable hiccups Take 1 Tablet by mouth 4 times a day as needed for Other (hiccups). 30 Tablet 0 03/24/20 Active Ondansetron HCl 8 MG Oral Tablet (Zofran)Indication s:Primary adenocarcinoma of upper lobe of right lung (HCC) Take 1 Tablet by mouth every 8 hours as needed for Nausea. 30 Tablet 1 03/23/20 Active dexAMETHasone 4 MG Oral Tablet (Decadron)Indicati ons:Primary adenocarcinoma of upper lobe of right lung (HCC),Metastasis to mediastinal lymph node (HCC),Metastasis to bone (HCC),Metastasis to brain (HCC) 1 tablet twice a day for 3 days starting 1 day before the chemotherapy with Alimta 24 Tablet 1 03/25/20 Active Benzonatate 100 MG Oral Capsule (Tessalon Perles) Take 1 Capsule by mouth 3 times a day as needed for Cough. Do not cut, crush, or chew. 50 Capsule 1 06/02/20 Active Promethazine HCl 25 MG Rectal Suppository (Phenergan)Indicat ions:Bilious vomiting with nausea Administer 1 Suppository into the rectum every 6 hours as needed for Nausea. 10 Suppository 1 06/07/20 Active Full Kit Nebulizer Set Patient needs tubing and mask 1 Each 1 06/08/20 Active Additional Information Patient not taking.Reported on 06/15/2023 Ipratropium-Albute rol 0.5-2.5 (3) MG/3ML Inhalation Solution (Duoneb) Inhale 3 mL via nebulizer in the morning and 3 mL at noon and 3 mL in the evening and 3 mL before bedtime. 120 mL 1 06/10/20 Active Additional Information Patient not taking.Reported on 06/15/2023 guaiFENesin ER 600 MG Oral Tablet Extended Release 12 Hour (Mucinex) Take 1 Tablet by mouth 2 times a day as needed for Congestion. Take with plenty of water. Do not cut, crush or chew 40 Tablet 2 06/12/20 Active Morphine Sulfate ER 30 MG Oral Tablet Extended Release (Ms Contin)Indications :Cancer related pain Take 1 Tablet by mouth in the morning and 1 Tablet before bedtime. 30 Tablet 0 12/14/20 23 Active Potassium Chloride ER 20 MEQ Oral [...] 0 Active dexAMETHasone 4 MG Oral Tablet (Decadron)Indicati ons:Cancer related pain Take 1 Tablet by mouth 2 times a day with morning and evening meals. 20 Tablet 0 06/17/20 23 Active Morphine Sulfate 30 MG Oral Tablet (Msir)Indications: Cancer related pain Take 1 Tablet by mouth every 4 hours as needed for Pain, Breakthrough. 90 Tablet 0 06/17/20 23 Active Baclofen 10 MG Oral Tablet (Lioresal)Indicati ons:Cancer related pain Take 1 Tablet by mouth 3 times a day as needed for Muscle spasms. 30 Tablet 0 06/17/20 23 Active Prochlorperazine Maleate 10 MG Oral Tablet (Compazine)Indicat ions:Primary adenocarcinoma of upper lobe of right lung (HCC) Take 1 Tablet by mouth every 6 hours as needed for Nausea. 30 Tablet 2 11/05/19 23 023 Discontinued Phenazopyridine HCl 200 MG Oral Tablet (Pyridium)Indicati ons:Dysuria Take 1 Tablet by mouth 3 times a day as needed for Pain, Moderate. After meals for pain with urination 20 Tablet 0 03/10/20 23 023 Discontinued Morphine Sulfate ER 15 MG Oral Tablet Extended Release (Ms Contin)Indications :Cancer related pain Take 1 Tablet by mouth in the morning and 1 Tablet before bedtime. 30 Tablet 0 04/28/20 23 023 Discontinued HYDROcodone Bit-Homatrop MBr 5-1.5 MG/5ML Oral Solution (Hycodan)Indicatio ns:Primary adenocarcinoma of upper lobe of right lung (HCC) Take 5 mL by mouth every 6 hours as needed for Cough. 120 mL 0 05/25/20 23 023 Discontinued Movantik 25 MG Oral Tablet (Naloxegol Oxalate) Take 1 Tablet by mouth in the morning. 90 Tablet 0 06/02/20 23 023 Discontinued Morphine Sulfate 30 MG Oral Tablet (Msir) Take 1 Tablet by mouth every 4 hours as needed for Pain, Breakthrough. 0 023 Discontinued(Re fill) Hospital, Clinic, or Other Facility Administered Medication Ordered Dose Route Frequency Start Date End Date Status hEParin 10,000 Units, bupivacaine (Sensorcaine) 30 mL, methylPREDNISolone sodium succ (SOLU-Medrol) 125 mg, gentamicin 80 mg, sodium bicarbonate 2 mEq bladder instillationIndications:Inter stitial cystitis IS QWEEK 08/19/2022 Active documented as of this encounter (statuses as of 06/17/2023) Active Problems Problem Noted Date Diagnosed Date [...] as of this encounter (statuses as of 06/17/2023) Resolved Problems Problem Noted Date Diagnosed Date [...] as of this encounter (statuses as of 06/17/2023) Immunizations Name Administration Dates Next Due TDAP [...] on file documented as of this encounter Last Filed Vital Signs Vital Sign Reading Time Taken Comments Blood Pressure 125/77 06/17/2023 2:07 PM EST Pulse 117 06/17/2023 2:07 PM EST Temperature 36.2 C (97.2 F) 06/17/2023 2:07 PM ES T Respiratory Rate 16 06/17/2023 2:07 PM EST Oxygen Saturation 90% 06/17/2023 2:07 PM EST Inhaled Oxygen Concentration - - Weight 81.6 kg (179 lb 14.4 oz) 06/17/2023 2:07 PM EST Height - - Body Mass Index 29.94 05/13/2023 1:56 PM EST documented in this encounter Functional Status Functional Status Response [...] No 04/28/2023 documented as of this encounter Patient Instructions * Patient Instructions* Rebecca Schaefer LPN - 06/17/2023 1:54 PM EST Our Palliative Medicine Clinic is available Thursday through Thursday during business hours, so we are unavailable on weekends and holidays. Please ensure that you request refills early in the week as itmay take 1-2 days for them to be addressed and filled, for authorizations to be approved, or for the pharmacy to order them if needed. You can contact our office at [phone], which is our clinic in [place], or you can message us on [employer]. If you have an emergency outside of these hours, we recommend calling your primary care clinic, Oncology office, or going to the ER if you have a medical emergency. 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 Notes from Hem Onc reviewed - pt has worsening disease and plan is to try pembrolizumab for 2 more doses but the expectations of success are low. Her oncologist is leaving so she may want to switch back to [facility] Onc as well. Was in [place] ER last night for pain, received 3 doses of IV dilaudid Pain about 5/10, though worse with walking. Pain is in L hip area, goes down anterior L leg and interior leg, down to ankle, which also hurts. Crosses back as well Continues to smoke 3-4 cigarettes per day, which is lower than the 1.5 pack she previously had ROS: See HPI. All others negative. Past Medical History: Diagnosis Date ADHD (attention deficit hyperactivity disorder) Bipolar 1 disorder (HCC) Endometrial cancer (HCC) 2013 Interstitial cystitis 01/07/2023 Lumbar degenerative disc disease 01/07/2023 Lupus (HCC) Pancytopenia due to chemotherapy (HCC) 01/07/2023 Polycystic disease, ovaries Primary adenocarcinoma of upper lobe of right lung (HCC) 10/07/2022 Pseudocholinesterase deficiency Pulmonary embolism on right (HCC) 01/07/2023 S/P percutaneous endoscopic gastrostomy (PEG) tube placement (HCC) 05/04/2023 Smoker SHx: No change FHx: No change Decision-making Capacity: Does Patient have Decisional Capacity? y Does Patient have a Healthcare Agent? Y, Advanced Care Planning (see ACP Tab): AD in EMR: no POLST in EMR: deferred Examination: BP 125/77 | Pulse 117 | Temp 36.2 C (97.2 F) | Resp 16 | Wt 81.6 kg (179 lb 14.4 oz) | SpO2 90%| BMI 29.94 kg/m | BSA 1.93 m Constitutional: no acute distress, chronically ill HENT: normocephalic, atraumatic. Eyes: anicteric, sclera and conjunctiva normal. Neck: no stridor Chest: normal respiratory effort Abdominal: nondistended Extremities: no edema Data Review: External notes reviewed: Hem onc notes reviewed Lab / Imaging Results: not in system History obtained from: pt Discussion with other team members: no ASSESSMENT/PLAN: Ritchie Lowe is a 43 year old female seen in follow-up for goals of care and pain and symptom management. RUL Adenocarcinoma with brain mets - Plan is to continue Keytruda x 2 and then re-assess - She is considering switching back to [facility] Hem Onc (previously saw Dr Charlton) or get a 2nd opinion Cancer related pain - Is having an acute pain flare - will add dexamethasone 4mg daily, but could take BID if needed. She feels it is muscular in nature - will add baclofen 10mg TID PRN - Continue MS contin 30mg BID with MS IR 30mg q4h PRN. Once we see how she is doing post steroid wecan adjust these - likely needs more XRT, getting a scan tomorrow Follow up in 1 week by phone, possibly video on 06/26, if not then 07/01 at I spent a total of 32 minutes on the date of service in preparation, delivery, and documentation ofthe care provided to Ritchie Lowe. Becky Dial MD Palliative Medicine Physician [facility] Office: [phone] 06/17/2023 * Rebecca Schaefer LPN - 06/17/2023 1:57 PM EST Return Palliative Visit Pain: 5/10 in left hip/pelvis/leg Taking MS Contin 30mg BID Taking the MSIR 30mg every 4 hours consistently Went to [facility] Er last night for uncontrolled pain Given 3 shots of dilaudid Pain was still not controlled Some nausea-it is increasing-using zofran Vomiting about every other day Last BM: today. taking senna-1 tab TID. Stopped movanitk-made her pain worse Other issues: documented in this encounter Plan of Treatment Upcoming Encounters Date Type Department Care Team (Late st Contact Info) Description 06/24/2023 9:00 AM EST Scheduled Telephone Palliative Medicine, [facility] [address] [facility] 5th Floor [place] [address] [place], Nurse Palliative Medicine [facility] [address] [facility] [address] 07/20/2023 11:00 AM EST Telemedicine [facility], [place] [address] [place] [address] Estelle Davis PA-C [address] [place] [address] Nenita Cantu, Community [facility] Dog Obedience Instructor [address] [place] [address] [place] [address] 11/02/2023 12:00 PM EDT Office Visit Family [facility] [place] [address] Josue Blake MD [address] [place] [address] Health Maintenance Due Date Last Done Comments Hepatitis B (1 of 3 - 3-dose series) 1978 Lipid Panel 1978 COVID-19 Vaccine (#1) 1983 Cologuard 2023 Colonoscopy 2023 Colorectal Cancer Screening 2023 Fecal Occult Blood Test 2023 Sigmoidoscopy 2023 Mammogram 10/01/2023 09/30/2022, 06/30, 01/11/2021, Additional history exists Depression Screening 05/12/2024 05/12/2023 Diabetes Screening 05/01/2026 05/01/2023, 1 06/30/2022, 04/29/2023, Additional history exists DTaP,Tdap,and Td Vaccines (2 - Td or Tdap) 08/28/2027 08/27/2017 Pap Smear Discontinued 03/05/2022, 12/03/2020 GARDASIL-HPV IMMUNIZATION SERIES Aged Out No longer eligible based on patient's age to complete this topic MENINGOCOCCAL (MENACTRA/MENVEO) Aged Out No longer eligible based on patient's age to complete this topic documented as of this encounter Medical Devices Implanted Type Area Manager Of Manufacturing Device Identifier Shelf Expiration Date Model / Serial / Lot Desara One Single Incision Sling System Implanted:Qty: 1 on 07/11/2022 by Derek Monzon MD at [facility] Pelvis [employer] 10/17/2023 [id number] / / [id number] Port Implant W/8f Poly Cath - [id number] Implanted:Qty: 1 on 10/27/2022 at [facility] [id number] 10/27/2023 [id number] / / [id number] Clip Padlock Pro Select - [id number] Implanted:Qty: 1 on 05/13/2023 by Destin Zhong MD at OR [facility] [id number] 03/05/2026 [id number] / / [id number] documented as of this encounter Visit Diagnoses Diagnosis Cancer related pain- Primary Neoplasm related pain (acute) (chronic) LEAH (generalized anxiety disorder) Generalized anxiety disorder documented in this encounter Advance Directives Latest Code Status on File Code Status Date Activated Date Inactivated Comments Full Code 04/29/2023 12:11 AM 05/01/2023 10:22 PM Thi s order reflects the patients wishes and were consensually agreed upon. Question Answer Comments Discussion of Advance Directives occurred with: Patient Does the patient have a Living Will? No Does the patient have Health Care Power of Sales Manager? No Code Status History Code Status Date Activated Date Inactivated Comments Full Code 07/11/2022 8:35 AM 07/11/2022 3:33 PM This order reflects the patients wishes and were consensually agreed upon. Question Answer Comments Discussion of Advance Directives occurred with: Patient Does the patient have a Living Will? No Does the patient have Health Care Power of Sales Manager? No Care Teams Neuropsychiatric Aide Relationship Specialty Start Date End Date Josue Blake MD [address] [place] [address] PCP - General Family Medicine 02/06/22 documented as of this encounter
--- OUTSIDE RECORDS SUMMARY | 2023-06-19 15:59 | External Medical Summary | Summary of Care ---
Author Name Unknown Organization [facility] Address [address] [place] [address] Phone [phone] Care Team Providers Care Tire Technician Name Role Phone Josue Blake MD Primary Care Provider [phone] Reason for Visit * Reason Onset Date Comments Abnormal Lab Results 06/18/2023 K Encounter Details Date Type Department Care Team (Late st Contact Info) Description 06/18/2023 Telephone Hematology/Oncology [facility] [address] [place] [address] Richard David MD [address] [place] [address] Abnormal Lab Results (K) Allergies Active Allergy [...] BEDTIME 120 Tablet 2 01/09/2023 Active Umeclidinium Roggen 62.5 MCG/ACT Inhalation Aerosol Powder Breath Activated [...] encounter Miscellaneous Notes * Telephone Encounter - Virginia Owens RN - 06/18/2023 3:45 PM EST Sending to [facility] * Telephone Encounter - Kofi Conrad RN - 06/18/2023 3:37 PM EST ----- Message from Richard David MD sent at 06/18/2023 1:45 PM EST ----- Potassium level is 3.3. Patient taking potassium supplement? documented in this encounter Plan of Treatment Upcoming Encounters Date Type Department Care Team (Late st Contact Info) Description 06/24/2023 9:00 AM EST Scheduled Telephone Palliative Medicine, [facility] [address] [facility] 5th Floor [place] [address] [place], Nurse Palliative Medicine [facility] 5th [address] [facility] [place] [address] 07/20/2023 11:00 AM EST Telemedicine [facility] at Home, [place] [address] [facility] [place] [address] Estelle Davis PA-C [address] [facility] [place] [address] Nenita Cantu, [address] [place] [address] 11/02/2023 12:00 PM EDT Office Visit Family Practice [facility] [address] [place] [address] Josue Blake MD [address] [place] [address] Health Maintenance Due Date Last Done Comments [...] this encounter Medical Devices Implanted Type Area Warehouse And Receiving Supervisor Device Identifier Shelf Expiration Date Model / Serial / Lot Desara One Single Incision Sling System Implanted:Qty: 1 on 07/11/2022 by Derek Monzon MD at OR [facility] Pelvis [employer] 10/17/2023 [id number] / / [id number] Port Implant W/8f Poly Cath - [id number] Implanted:Qty: 1 on 10/27/2022 at [facility] [facility] [id number] 10/27/2023 [id number] / / [id number] Clip Padlock Pro Select - [id number] Implanted:Qty: 1 on 05/13/2023 by Destin Zhong MD at OR [facility] [id number] 03/05/2026 [id number] / / [id number] documented as of this encounter Advance Directives [...] the patient have Health Care Power of Bead Builder? No Code Status History Code Status Date Activated Date Inactivated Comments Full Code 07/11/2022 8:35 AM 07/11/2022 3:33 PM This order reflects the patients wishes and were consensually agreed upon. Question Answer Comments Discussion of Advance Directives occurred with: Patient Does the patient have a Living Will? No Does the patient have Health Care Power of Bead Builder? No Care Teams Tire Technician Relationship Specialty Start Date End Date Josue Blake MD [address] [place] [address] PCP - General Family Medicine 02/06/22 documented as of this encounter
--- OUTSIDE RECORDS SUMMARY | 2023-06-19 15:59 | External Medical Summary | Summary of Care ---
Author Name Unknown Organization [facility] Address [address] [place] [address] Phone [phone] Care Team Providers Care Firearms Instructor Name Role Phone Josue Blake MD Primary Care Provider [phone] Reason for Visit * Reason Onset Date Comments Abnormal Lab Results 06/18/2023 K Encounter Details Date Type Department Care Team (Late st Contact Info) Description 06/18/2023 Telephone Hematology/Oncology [facility] [address] [place] [address] Richard David MD [address] [place] [address] Abnormal Lab Results (K) Allergies Active Allergy [...] BEDTIME 120 Tablet 2 01/09/2023 Active Umeclidinium [place] 62.5 MCG/ACT Inhalation Aerosol Powder Breath Activated [...] - 06/18/2023 3:45 PM EST Sending to [facility] * Telephone Encounter - Kofi Conrad RN - 06/18/2023 3:37 PM EST ----- Message from Richard David MD sent at 06/18/2023 1:45 PM EST ----- Potassium level is 3.3. Patient taking potassium supplement? documented in this encounter Plan of Treatment Upcoming Encounters Date Type Department Care Team (Late st Contact Info) Description 06/24/2023 9:00 AM EST Scheduled Telephone Palliative Medicine, [facility] [address] [facility] 5th [place] [address] [place], Nurse Palliative Medicine [facility] 5th [address] [place] [address] 07/20/2023 11:00 AM EST Telemedicine [facility], [place] [address] [place] [address] Estelle Davis PA-C [address] [place] [address] Nenita Cantu, Community Health Balance Recesser [address] [place] [address] [place] [address] 11/02/2023 12:00 PM EDT Office Visit Family Practice [facility] [address] [place] [address] Josue Blake MD [address] [place] [address] Health Maintenance Due Date Last Done Comments [...] this encounter Medical Devices Implanted Type Area Sill Worker Device Identifier Shelf Expiration Date Model / Serial / Lot Desara One Single Incision Sling System Implanted:Qty: 1 on 07/11/2022 by Derek Monzon MD at OR [facility] [employer] 10/17/2023 [id number] / / [id number] Port Implant W/8f Poly Cath - [id number] Implanted:Qty: 1 on 10/27/2022 at [facility] CR BARD : PERIPHERAL VASCULAR [id number] 10/27/2023 [id number] / / [id number] Clip Padlock Pro Select - [id number] Implanted:Qty: 1 on 05/13/2023 by Destin Zhong MD at OR [facility] [employer] [id number] 03/05/2026 [id number] / / [id number] documented as of this encounter Advance Directives [...] the patient have Health Care Power of Compressor Mechanic? No Code Status History Code Status Date Activated Date Inactivated Comments Full Code 07/11/2022 8:35 AM 07/11/2022 3:33 PM This order reflects the patients wishes and were consensually agreed upon. Question Answer Comments Discussion of Advance Directives occurred with: Patient Does the patient have a Living Will? No Does the patient have Health Care Power of Compressor Mechanic? No Care Teams Firearms Instructor Relationship Specialty Start Date End Date Josue Blake MD [address] [place] [address] PCP - General Family Medicine 02/06/22 documented as of this encounter
--- OUTSIDE RECORDS SUMMARY | 2023-06-19 15:59 | External Medical Summary | Summary of Care ---
Author Name Unknown Organization [facility] Address [address] [place] [address] Phone [phone] Care Team Providers Care Wood Heel Back Liner Name Role Phone Josue Blake MD Primary Care Provider [phone] Reason for Visit * Reason Onset Date Comments Abnormal Lab Results 06/18/2023 K Encounter Details Date Type Department Care Team (Late st Contact Info) Description 06/18/2023 Telephone Hematology/Oncology [facility] [address] [place] [address] Richard David MD [address] [place] [address] Abnormal Lab Results (K) Allergies Active Allergy [...] BEDTIME 120 Tablet 2 01/09/2023 Active Umeclidinium [place] 62.5 MCG/ACT Inhalation Aerosol Powder Breath Activated [...] encounter Miscellaneous Notes * Telephone Encounter - Josue Blake MD - 06/18/2023 4:55 PM EST It's a little low. Patient has metastatic cancer. No need to react to this lab . Recheck in a week. * Telephone Encounter - Amrik Beltran DO - 06/18/2023 3:54 PM EST Ok to wait for pcp * Telephone Encounter - Virginia Owens RN - 06/18/2023 3:45 PM EST Sending to [facility] * Telephone Encounter - Kofi Conrad RN - 06/18/2023 3:37 PM EST ----- Message from Richard David MD sent at 06/18/2023 1:45 PM EST ----- Potassium level is 3.3. Patient taking potassium supplement? documented in this encounter Plan of Treatment Upcoming Encounters Date Type Department Care Team (Late st Contact Info) Description 06/24/2023 9:00 AM EST Scheduled Telephone Palliative Medicine, [facility] [address] [facility] 5th [place] [address] [place], Nurse Palliative Medicine [address] [place] [address] 07/20/2023 11:00 AM EST Telemedicine [facility] [place], [place] [address] [place] [address] Estelle Davis PA-C [address] [place] [address] Nenita Cantu, Community Health Can Operator [address] [place] [address] [place] [address] 11/02/2023 12:00 PM EDT Office Visit Family [facility] [address] [place] [address] Josue Blake MD [address] [place] [address] Health Maintenance Due Date Last Done Comments [...] this encounter Medical Devices Implanted Type Area Termite Control Representative Device Identifier Shelf Expiration Date Model / Serial / Lot Desara One Single Incision Sling System Implanted:Qty: 1 on 07/11/2022 by Derek Monzon MD at OR [facility] [employer] 10/17/2023 [id number] / / [id number] Port Implant W/8f Poly Cath - [id number] Implanted:Qty: 1 on 10/27/2022 at [facility] CR BARD : PERIPHERAL VASCULAR [id number] 10/27/2023 [id number] / / [id number] Clip Padlock Pro Select - [id number] Implanted:Qty: 1 on 05/13/2023 by Destin Zhong MD at [facility] [employer] [id number] 03/05/2026 [id number] / / [id number] documented as of this encounter Advance Directives [...] the patient have Health Care Power of Coin Machine Mechanic? No Code Status History Code Status Date Activated Date Inactivated Comments Full Code 07/11/2022 8:35 AM 07/11/2022 3:33 PM This order reflects the patients wishes and were consensually agreed upon. Question Answer Comments Discussion of Advance Directives occurred with: Patient Does the patient have a Living Will? No Does the patient have Health Care Power of Coin Machine Mechanic? No Care Teams Wood Heel Back Liner Relationship Specialty Start Date End Date Josue Blake MD [address] [place] [address] PCP - General Family Medicine 02/06/22 documented as of this encounter
--- OUTSIDE RECORDS SUMMARY | 2023-06-19 15:59 | External Medical Summary | Summary of Care ---
Author Name Unknown Organization [facility] Address [address] [place] [address] Phone [phone] Care Team Providers Care Quality Systems Engineer Name Role Phone Josue Blake MD Primary Care Provider [phone] Reason for Visit * Reason Onset Date Comments Abnormal Lab Results 06/18/2023 K Encounter Details Date Type Department Care Team (Late st Contact Info) Description 06/18/2023 Telephone Hematology/Oncology [facility] [address] [place] [address] Richard David MD [address] [place] [address] Abnormal Lab Results (K) Allergies Active Allergy [...] BEDTIME 120 Tablet 2 01/09/2023 Active Umeclidinium [place] 62.5 MCG/ACT Inhalation Aerosol Powder Breath Activated [...] as of this encounter Miscellaneous Notes * Addendum Note - Renan Weber LPN - 06/18/2023 7:16 PM ESTAddended by: RENAN WEBER on: 06/18/2023 07:16 PM Modules accepted: Orders * Telephone Encounter - Renan Weber LPN - 06/18/2023 7:08 PM EST Sent my g Re order BMP recheck for 1 week * Telephone Encounter - Josue Blake MD - 06/18/2023 4:55 PM EST It's a little low. Patient has metastatic cancer. No need to react to this lab . Recheck in a week. * Telephone Encounter - Amrik Beltran DO - 06/18/2023 3:54 PM EST Ok to wait for pcp * Telephone Encounter - Virginia Owens RN - 06/18/2023 3:45 PM EST Sending to [facility] * Telephone Encounter - Kofi Conrad RN - 06/18/2023 3:37 PM EST ----- Message from Richard David MD sent at 06/18/2023 1:45 PM EST ----- Potassium level is 3.3. Patient taking potassium supplement? documented in this encounter Plan of Treatment Upcoming Encounters Date Type Department Care Team (Late st Contact Info) Description 06/24/2023 9:00 AM EST Scheduled Telephone Palliative Medicine, [address] 5th [address] [place] [address] [place], Nurse Palliative Medicine [address] [place] [address] 07/20/2023 11:00 AM EST Telemedicine [facility] [place], [place] [address] [facility] [place] [address] Estelle Davis PA-C [address] [place] [address] Nenita Cantu, Community Health Freight Receiver [address] [place] [address] [place] [address] 11/02/2023 12:00 PM EDT Office Visit Family Practice [facility] [address] [place] [address] Josue Blake MD [address] [place] [address] Scheduled Orders Name Type Priority Associated Diagnoses Orde r Schedule BASIC METABOLIC PANEL Lab Routine Hypokalemia Expected: 06/25/2023 (Approximate), Expires: 06/17/2024 Health Maintenance Due Date Last Done Comments [...] this encounter Medical Devices Implanted Type Area Textile Machine Operator Device Identifier Shelf Expiration Date Model / Serial / Lot Desara One Single Incision Sling System Implanted:Qty: 1 on 07/11/2022 by Derek Monzon MD at OR [facility] [employer] 10/17/2023 [id number] / / [id number] Port Implant W/8f Poly Cath - [id number] Implanted:Qty: 1 on 10/27/2022 at [facility] CR BARD : PERIPHERAL VASCULAR [id number] 10/27/2023 [id number] / / [id number] Clip Padlock Pro Select - [id number] Implanted:Qty: 1 on 05/13/2023 by Destin Zhong MD at OR [facility] [employer] [id number] 03/05/2026 [id number] / / [id number] documented as of this encounter Visit Diagnoses Diagnosis Hypokalemia- Primary Hypopotassemia documented in this encounter Advance Directives Latest [...] the patient have Health Care Power of Clinical Partner? No Code Status History Code Status Date Activated Date Inactivated Comments Full Code 07/11/2022 8:35 AM 07/11/2022 3:33 PM This order reflects the patients wishes and were consensually agreed upon. Question Answer Comments Discussion of Advance Directives occurred with: Patient Does the patient have a Living Will? No Does the patient have Health Care Power of Clinical Partner? No Care Teams Quality Systems Engineer Relationship Specialty Start Date End Date Josue Blake MD [address] [facility] [place] [address] PCP - General Family Medicine 02/06/22 documented as of this encounter
[2023-06-19] MEDS ORDERED: fentaNYL 25 MCG/HR TDSY TD SCH (16:00)
--- NOTE | 2023-06-19 16:24 | XRay Report ---
XR hip LT 2V w pelvis CLINICAL HISTORY: pain, hx of lung ca COMPARISON: CT of the abdomen and pelvis June 03, 2023. FINDINGS: No acute fracture within the pelvis or hips is identified. Hip joint spaces are preserved. There is mild osteophytosis of the hips. No evidence for avascular necrosis of the femoral heads. No suspicious lesions within the left hip are identified. A mixed lytic and sclerotic lesion within the right superior pubic ramus on CT of June 03 is not well-visualized by radiography. IMPRESSION: 1. No fractures within the pelvis or hips. 2. No suspicious lesions within the left hip by radiography. 3. Mixed lytic and sclerotic lesion within the right superior pubic ramus on CT of June 03, 2023 i s not evident radiographically. ACT 112: Negative or not required by law. Electronically signed by: Dewey Reza M.D. 06/19/2023 4:23 PM
[2023-06-19] MEDS ORDERED: ALBUTEROL 0.083% NEBU SOLN 3 ML VIAL INH PRN (17:14)
[2023-06-19] MEDS ORDERED: LORazepam 0.5 MG TAB PO PRN (17:14)
[2023-06-19] MEDS ORDERED: ONDANSETRON INJ 2 MG/ML 2 ML VIAL IV PRN (17:14)
[2023-06-19] MEDS ORDERED: NON-FORMULARY MEDICATION (Magic Mouthwash 300 mL mouthwash) mucous membrane PRN (17:14)
[2023-06-19] MEDS: CHECK fentaNYL PATCH PLACEMENT SCH (17:17)
[2023-06-19] MEDS ORDERED: MoRPHine SULFATE 10 MG/0.5 ML UDP PO PRN (17:56)
[2023-06-19] MEDS: MoRPHine SULFATE IR 15 MG TAB (IMMEDIATE RELEASE) PO PRN (17:57)
[2023-06-19] MEDS: bisacodyL 5 MG TABEC PO SCH (18:29)
[2023-06-19] MEDS: SENNA 8.6 MG TAB PO SCH (18:31)
[2023-06-19] MEDS: UMECLIDINIUM BROMIDE 62.5MCG/BLISTER 7 PUFFS/INHALER INH SCH (18:31)
[2023-06-19] MEDS: POLYETHYLENE (MIRALAX) 17 GM PACK PO SCH (18:31)
[2023-06-19] MEDS: GABAPENTIN 300 MG CAP PO SCH (19:47)
[2023-06-19] MEDS: BACLOFEN 10 MG TAB PO SCH (19:48)
[2023-06-19] MEDS: PANTOprazole 40 MG TAB PO SCH (19:48)
[2023-06-19] MEDS: ACETAMINOPHEN 325 MG TAB PO PRN (19:53)
[2023-06-19] MEDS: SPIRONOLACTONE 100 MG TAB PO SCH (21:49)
--- NOTE | 2023-06-19 22:10 | Electrocardiogram Report ---
Test Reason : Blood Pressure : / mmHG Vent. Rate : 096 BPM Atrial Rate : 096 BPM P-R Int : 124 ms QRS Dur : 086 ms QT Int : 378 ms P-R-T Axes : 055 007 037 degrees QTc Int : 477 ms Sinus rhythm with frequent Premature ventricular complexes Otherwise normal ECG When compared with ECG of 18-MAY-2023 11:19, No significant change was found Confirmed by Juaquin Maria ([id number]) on 06/19/2023 10:10:03 PM Referred By: Confirmed By:Juaquin Maria
[2023-06-20] MEDS: CHECK fentaNYL PATCH PLACEMENT SCH ×2 (00:39→07:56)
[2023-06-20] MEDS: MoRPHine SULFATE IR 15 MG TAB (IMMEDIATE RELEASE) PO PRN ×2 (00:44→07:59)
[2023-06-20] MEDS: HYDROmorphone INJ 1 MG/ML SYRINGE IV PRN ×5 (02:29→13:33)
[2023-06-20 06:38] LABS: Hematocrit (blood only) 31.4 % (37.0-47.0); Hemoglobin 10.1 g/dl (12.0-16.0); Mean Corpuscular Hemoglobin 30.9 pg (25.0-34.0); Mean Corpuscular Hgb Conc 32.2 g/dL (32.0-36.0); Mean Platelet Volume 9.8 fL (9.4-12.4); Platelet Count 192 K/uL (130-400); RDW Coefficient of Variation 14.6 % (11.5-14.5); RDW Standard Deviation 51.3 fL (36.4-46.3); Red Blood Count 3.27 M/uL (4.20-5.40); White Blood Count 4.63 K/ul (4.8-10.8)
[2023-06-20 07:02] LABS: BUN Creatinine Ratio 16.1 (10-20); Calcium 8.7 mg/dl (8.6-10.3); Creatinine Clr Calc Pharmacy 120.4 ml/min; Est GFR (African American) 126.2 ml/min; Est GFR (Non-African American) 108.9 ml/min
--- NOTE | 2023-06-20 07:05 | Consultation ---
Date of Consultation June 20, 2023 Assessment & Plan (1) Cancer-related breakthrough pain: Specific impetus for this admission is for breakthrough pain. Appreciate hospitalist team focus on that and she certainly will benefit from more aggressive as needed analgesia. Not unreasonable to change her long-acting medication to fentanyl as has been done, will need to tally the amount of breakthrough medication she needs on a daily basis and perhaps adjust the fentanyl dose to reflect that. As below, incorporation of palliative care into the broader discussions both of specific pain management but also of general treatment planning will be worthwhile (2) Metastatic adenocarcinoma: Patient has a very challenging metastatic lung adenocarcinoma that had relapsed very shortly after initial chemoradiation. [facility] salvage with pemetrexed/carboplatinum/pemetrexed unfortunately was associated with prolonged pancytopenia suggesting compromised stem cell reserve. With ongoing poor performance status through the fall, I had extensive conversations with the patient and her expressing the concern that additional cytotoxics might be more likely to cause toxicity or even life ending complications than to be helpful. We did settle on a plan of pembrolizumab alone resuming that on May 19 with a second cycle given on June 09 and the third due on June 30. Unfortunately, interim imaging with CT on June 03 shows not only expansion of previous lesions but the development of new lesions suggesting that this is true progression rather than pseudoprogression though it may be just a bit early to investigator the full impact of pembrolizumab. Nevertheless, the likelihood of a major response seems remote and I have on multiple occasions continued to speak with the patient and her as to the potential alternative value of a pure pal liative care approach allowing her to spend more time at home with her children and achieving reasonable quality where it is not clear that we can significantly improve on the quantity of her life remaining. Ritchie has expressed intellectual understanding of that but continues to be strongly committed to being as aggressive as possible where, to her, quantity of life may be more important than quality. I had last seen her on June 09 with plans for quick expansion of restaging especially with an MRI of the brain to assess whether the lesions there were progressive. She also was in the process of seeing radiation oncology to identify any areas of possible palliative radiation that might help with her evolving pain syndrome which at that time was particular focused in the left pelvic area. Unfortunately, she was not able to keep the imaging appointment nor scheduled appointments with me on June 16 or with my colleague Dr. Hodge on June 19. Immediate goal during this hospitalization will be the stabilization of her pain. Secondary goal will be to potentially reframe her treatment options. If she remains hospitalized through next week, Dr. Hodge will be able to see her as an inpatient and have those discussions. Palliative care participation and incorporation of her into discussions will be very important. (3) Metastatic adenocarcinoma to brain: Would specifically repeat the MRI of her brain with and without contrast to reassess those lesions. This will be a specific prelude to discussions of VTE prophylaxis but also will give us a larger sense of the activity of her malignancy as we potentially reframe a treatment plan (4) Palliative care by specialist: Palliative care involvement both to specifically guide pain management but also to help us relook at parameters of care will be a pérez element of ongoing treatment planning (5) Pulmonary embolism: Patient does have a history of pulmonary embolism in the early phases of her disease. We have been avoiding DVT prophylaxis/anticoagulation during the time of her prolonged pancytopenia but with platelets recovered that at least would be a consideration. Would first assess her brain for any unexpected significant expansion of lesions there and as well carefully review for any signs of ongoing unusual bruising or bleeding but if she lacks those, at least prophylactic anticoagulation during this admission should be a consideration Plan 1. Immediate priority will be pain management and concur with aggressive as needed pain medications. As her needs for those are quantified over several days, may need to adjust the fentanyl doses accordingly 2. Would repeat an MRI of the brain with and without contrast to identify any new lesions there and understand the larger context of her current disease status as well as serving as a specific prelude to the decision as to whether or not to initiate pharmacologic VTE prophylaxis 3. As her pain comes under control will need a fundamental re-look at the goals of care and what reasonable treatments can be offered. I have very much tried to honor the patient's desire to go forward on a treatment program that offers at least some possibility for disease stabilization but had chosen the Keytruda to try to avoid recurrence of the profound and prolonged pancytopenia she had had with standard chemotherapy. Unfortunately, most recent CT scans suggest that we are not likely to get a dramatic response to Keytruda. I am leaving the practice and her care will be turned over to Dr. Hodge. If she remains hospitalized after the holiday weekend, he would be available to carry those discussions forward with her as an inpatient. If not, we will have to make a follow-up appointment with him at the [facility] as soon as possible after discharge. 4. Palliative care will play a critical role in framing both specific pain management plans but also helping to catalyze discussions of appropriate parameters of care. If she is not discharged in the very near future, would initiate that consultation on an inpatient basis to complement her review with Dr. Hodge. If she is discharged, should have her reconvene with her [facility] palliative care team as soon as possible 5. If there are no signs of bruising or bleeding and no changes on her MRI of the brain, should consider VTE prophylaxis given her previous pulmonary embolism and high risk for recurrence in the setting of active malignancy 6. If patient's pain is not quickly controlled pharmacologically, inpatient radiation oncology consultation may also be helpful to build on their initial outpatient review seeking possible sites for palliative RT History of Present Illness Reason for Consultation: Metastatic lung cancer with uncontrolled pain Attending Physician: April Freeman MD History of Present Illness Please note that this is a consultation constructed purely from review of the electronic database. I am working remotely and unable to speak directly with the patient or examine her. I reviewed both the records from the [facility] and the current admission records which seem to be an accurate source of relevant information but I am completely reliant on that for my conclusions and perspectives. If there are urgent concerns regarding the need for more direct [id number] review, you should consider transferring the patient to another institution. One of my colleagues can also follow up with the patient in a [id number] meeting after the holiday to augment our assessment and recommendations if desired. The evaluation is consultative in nature and all patient care and treatment decisions can either be accepted or rejected by the patient's primary hospital- based treating physician using their own independent medical judgment for the patient In the context of a history of smoking, patient had presented in September of this year with a picture of locally advanced lung adenocarcinoma including an intensely hypermetabolic right upper lung pulmonary mass on PET scan measuring 4.4 cm as well as intensely hypermetabolic right hilar mediastinal adenopathy. Although initial treatment was through the [facility] system starting with chemoradiation delivered diagnosis and completed in December of this year. Unfortunately, patient rapidly relapsed with metastatic disease to the kidney and brain receiving SRS to the brain lesions in early February along with, after second opinion at [facility], 2 cycles of pemetrexed/carboplatinum/pembrolizumab in February in early March. This resulted in profound and prolonged pancytopenia with serial admissions for that with a series of infections as well as the evolution of a significant esophageal ulceration. And our team took over her care during this time and for a prolonged period of time focused on palliation of those various issues. See also multiple hospital notes and inpatient consultations for additional details. I have had extensive discussions with the patient and her regarding her poor prognosis, challenging performance status, and the profound toxicity she previously experienced with cytotoxic medications. She is followed closely by palliative care team at [facility] Dr. Dial who have been primarily responsible for her pain medications. Ritchie has young children and has been very committed to any reasonable treatment available to her to extend her life to the extent she can spend more time with the children. After extensive review and recovery from the pancytopenia and esophageal ulcer issues we had cautiously resumed monotherapy with pembrolizumab with doses given on May 19 and June 09 on a 3-week cycle. She had most recently been under evaluation for worsening pain in the left hip with radiation oncology pursuing further review for possible palliative radiation to relevant sites based on pending imaging. And also with some nausea and she was to be scheduled for another MRI of the brain but following ED visit earlier this week she represents with uncontrolled pain and is admitted for management of that. Allergies Allergy/AdvReac Type Severity Reaction Status Date / Time levofloxacin [From Levaquin] Allergy Severe THROAT Verified 06/16/23 18:22 SWELLS SHUT, ITCHY--RASH PER [facility] Penicillins Allergy Severe Anaphylaxis Verified 06/16/23 18:22 clindamycin Allergy Intermediate CAUSED A Verified 06/16/23 18:22 YEAST INFECTION X 6 MONTHS povidone-iodine Allergy Intermediate Rash Verified 06/16/23 18:22 [From Betadine] silver Allergy Intermediate Rash Verified 06/16/23 18:22 [From Tegaderm AG Mesh] bupropion [From Wellbutrin] AdvReac Severe suicidal Verified 06/16/23 18:22 ideation duloxetine AdvReac Severe suicidal Verified 06/16/23 18:22 ideations sulfamethoxazole AdvReac Mild YEAST Verified 06/16/23 18:22 [From Bactrim] INFECTION trimethoprim [From Bactrim] AdvReac Mild YEAST Verified 06/16/23 18:22 INFECTION ANESTHESIA AdvReac Severe PER Uncoded 06/16/23 18:22 [facility]--PSEUDOCHLOINESTERASE---FLAT LINES PLASTIC AdvReac Severe SKIN PEELS Uncoded 06/16/23 18:22 Home Medications Medication Instructions Recorded Confirmed Type albuterol sulfate 2.5 mg/3 mL 2.5 mg inhalation Q4H PRN 03/28/23 06/19/23 History (0.083 %) solution for nebulization Shortness Of Breath Or Wheezing albuterol sulfate 90 mcg/actuation 2 puff inhalation Q4H PRN 03/28/23 06/19/23 History aerosol inhaler (Ventolin HFA) Shortness Of Breath Or Wheezing chlorpromazine 25 mg tablet 25 mg PO QID PRN Hiccups 03/28/23 06/19/23 History cyanocobalamin (vitamin B-12) 1,000 mcg IM MONTHLY 03/28/23 06/19/23 History 1,000 mcg/mL injection solution fluticasone propionate 230 2 puff inhalation BID 03/28/23 06/19/23 History mcg-salmeterol 21 mcg/actuation HFA inhaler (Advair HFA) folic acid 1 mg tablet 1 mg PO DAILY 03/28/23 06/19/23 History lorazepam 0.5 mg tablet 0.5 mg PO TID PRN Anxiety 03/28/23 06/19/23 History ondansetron HCl 8 mg tablet 8 mg PO TID PRN Nausea And Vomiting 03/28/23 06/19/23 History umeclidinium 62.5 mcg/actuation 1 inh inhalation DAILY 03/28/23 06/19/23 History blister powder for inhalation (Incruse Ellipta) pantoprazole 40 mg tablet,delayed 40 mg PO BID #90 tabs 04/28/23 06/19/23 Rx release gabapentin 300 mg capsule 300 mg PO TID 05/18/23 06/19/23 History Magic Mouthwash 300 mL mouthwash 10 ml mucous membrane ACHS PRN 05/28/23 06/19/23 History dysphagiea benzonatate 100 mg capsule 100 mg PO TID PRN Cough #60 caps 05/28/23 06/19/23 Rx morphine 20 mg/5 mL (4 mg/mL) oral 10 mg PO Q4H PRN If 30mg immediate 05/28/23 06/19/23 History solution release doesn't help pain morphine 30 mg immediate release 30 mg PO Q4H PRN If 30mg extended 05/28/23 06/19/23 History tablet release doesn't help pain morphine 30 mg tablet,extended 30 mg PO BID 06/16/23 06/19/23 History release baclofen 10 mg tablet 10 mg PO TID 06/19/23 06/19/23 History potassium chloride 20 mEq 20 meq PO QAM 06/19/23 06/19/23 History tablet,extended release(part/cryst) spironolactone 100 mg tablet 200 mg PO BID 06/19/23 06/19/23 History Patient History Medical History Pneumonia Fever Chest fullness Dysphasia Pneumonia Chest pain Community acquired pneumonia Chronic low back pain Chronic cough Pseudocholinesterase deficiency Encounter for pre-operative examination Pancytopenia Primary adenocarcinoma of upper lobe of right lung (10/03/22) Endometriosis of the uterus, unspecified Asthma ADHD Tobacco abuse Systemic lupus erythematosus Surgical History H/O right wrist surgery H/O: hysterectomy History of cholecystectomy Hx of appendectomy H/O tubal ligation S/P bronchoscopy Family History Mother Cancer Breast Grandmother (Maternal) Cancer Lung Social History Smoking Status: Current every day smoker Tobacco Type: Cigarettes Cigarettes Per Day: 1 ppd; Second Hand Exposure: Yes; Do You Dip or Chew Tobacco: No; Tobacco Cessation Education Requested by Patient: No Hx Alcohol Use: No Hx Substance Use: No Preferred Language: Senegalese Communication Ability: Effective Visual Impairment: No Limitations Hearing Ability: Normal Cephalometric Analyst Required: No Beliefs That Will Affect Care: None marital status: Single Current Living Situation: Spouse Current Living Situation Comment: engaged current occupational status: unemployed 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 The admission history and physical suggest no dramatic findings of concern in the lung or abdomen and other than tachycardia relatively stable cardiac exam. That exam also suggest against any acute suggestions of DVT and does not describe anything to suggest unusual bruising or bleeding Results & Data Vital Signs (Past 12 Hours) Vital Signs Temp Pulse Pulse Resp BP Pulse Ox O2 Del Method 06/20/23 07:00 72 06/20/23 02:58 36.5 C 70 16 103/66 94 Nasal Cannula 06/20/23 01:58 80 06/19/23 22:48 85 16 95 Nasal Cannula 06/19/23 22:34 36.7 C 84 16 125/80 96 Nasal Cannula 06/19/23 20:19 36.6 C 88 18 125/80 95 Nasal Cannula 06/19/23 20:00 Nasal Cannula O2 Flow Rate 06/20/23 07:00 06/20/23 02:58 2 06/20/23 01:58 06/19/23 22:48 2 06/19/23 22:34 2 06/19/23 20:19 2 06/19/23 20:00 2 PG Care Time/CCT Total # of Minutes Spent Total Time Spent with Patient: Total time spent is greater than 50% in coordination of care (as documented) at patient's floor/unit and/or counseling patient: Coding Level of Care Code 99865 IN/OBS CONSULT LVL 3,45M Diagnoses Cancer-related breakthrough pain G89.3 Metastatic adenocarcinoma C79.9 Metastatic adenocarcinoma to brain C79.31 Palliative care by specialist Z51.5 Pulmonary embolism I26.99
[2023-06-20] MEDS: ACETAMINOPHEN 325 MG TAB PO PRN ×2 (08:29→15:11)
[2023-06-20] MEDS: BACLOFEN 10 MG TAB PO SCH ×2 (08:31→13:33)
[2023-06-20] MEDS: PANTOprazole 40 MG TAB PO SCH (08:32)
[2023-06-20] MEDS: SPIRONOLACTONE 100 MG TAB PO SCH (08:32)
[2023-06-20] MEDS: SENNA 8.6 MG TAB PO SCH (08:33)
[2023-06-20] MEDS: POLYETHYLENE (MIRALAX) 17 GM PACK PO SCH (08:34)
[2023-06-20] MEDS: bisacodyL 5 MG TABEC PO SCH (08:34)
[2023-06-20] MEDS: GABAPENTIN 300 MG CAP PO SCH ×2 (08:37→13:33)
[2023-06-20] MEDS ORDERED: dexAMETHasone 8 MG in SYRINGE 0 ML IV SCH (09:00)
[2023-06-20] MEDS ORDERED: FOLIC ACID 1 MG TAB PO SCH (09:00)
[2023-06-20] MEDS ORDERED: POTASSIUM CHLORIDE CRTAB 20 MEQ TABCR PO SCH (09:00)
[2023-06-20] MEDS ORDERED: FLUTICASONE/VILANTEROL 200/25MCG 14 PUFFS/INHALER INH SCH (09:00)
[2023-06-20] MEDS ORDERED: DEXAMETHASONE SOD INJ 4 MG/ML VIAL IV SCH (09:00)
[2023-06-20] MEDS ORDERED: fentaNYL 50 MCG/HR TDSY TD SCH (09:15)
[2023-06-20] MEDS ORDERED: GADOBUTROL 65ML VIAL IV ONE (10:07)
[2023-06-20] MEDS: UMECLIDINIUM BROMIDE 62.5MCG/BLISTER 7 PUFFS/INHALER INH SCH (10:36)
--- NOTE | 2023-06-20 11:02 | Magnetic Resonance Report ---
MRI OF THE BRAIN WITHOUT AND WITH IV CONTRAST CLINICAL HISTORY: Follow up on intracranial metastasis. COMPARISON STUDY: MRIs of the brain March 04, 2023 and April 16, 2023. TECHNIQUE: Utilizing a 1.5 Jaleesa magnet and dedicated coil, multiplanar, multiecho imaging of the br ain was performed pre and postcontrast administration. IV administration of 8 mL of Gadavist contras t was uneventful. Thin cut T1 post contrast imaging was performed. FINDINGS: There are no foci of restricted diffusion to suggest acute infarct. No acute intracranial h emorrhage, midline shift or mass effect is present. Ventricular system is normal. Basal cisterns are patent. There are no extra-axial collections. Flow-voids for the major intracranial vessels are prese nt. The previously described right temporal lobe lesion has continued to decrease in size. This now m easures 0.5 cm. It measured 1.1 cm on MRI of April 16, 2023. Associated vasogenic edema has also si gnificantly improved. The previously described left occipital and right cerebellar lesions are no lizbeth janet identified. A small enhancing lesion, measuring 3 mm, within the right insular cortex on thin cut T1 post contrast image 67 of 132 is new since prior exam. No associated vasogenic edema is present. No additional new lesions are present. IMPRESSION: 1. No acute intracranial findings. 2. Findings suggestive of a mixed treatment response. The previously described right temporal lobe le niurka has continued to decrease in size and several additional lesions have resolved since MRI of Maro 2022. A small 3 mm enhancing lesion within the right insular cortex is suggestive of a new m etastasis. No additional new lesions. ACT 112: Negative or not required by law. Electronically signed by: Dewey Reza M.D. 06/20/2023 10:59 AM
[2023-06-20] MEDS ORDERED: CHECK fentaNYL PATCH PLACEMENT SCH (16:00)
--- NOTE | 2023-06-20 16:32 | Discharge Summary ---
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 Other PMHx includes HTN, PEoff of anticoagulationdue to brain mets vasogenic edema, chronic pancytopenia [baseline hemoglobin around 8-9], endometrial cancer status post surgery, prediabetes, SLE, cancer pain on narcotics, ADD/mood disorder, pseudocholinesterase deficiency,esophageal ulcers as per records, ongoing tobacco abuse. Mrs. Lowe follows with oncologist Dr. Brizuela, and is transitioning with another physician as Gelacio is retiring at the end of this year. She was here in the ER only 3 days ago for similar complaints of uncontrolled pain, however her states that she lied during that visit about her pain relief because of the holiday season and not wanting to be admitted into the hospital. Today her pain is worse, uncontrolled and is agreeable to admission for pain control. She reports that her pain is across her lower back her left hip area and shoots a throbbing stabbing pain down the entirety of her leg. It has been difficult to control even with morphine sulfate and morphine IR. Here in the ER she has had minimal relief with frequent doses of IV Dilaudid. She reports having taken immediate release MS today, but didn't get her continued release dose. About 2 days ago, she was given a Rx of dexamethasone 4 mg po, but notes that she didn't see relief with starting this. She admits to continuingly smoking, 1 pack/day, reports that only Ativan helps her stop her smoking. She has not been eating or drinking very well due to pain, stating currently that she is very thirsty. Patient has been taking her other medications routinely other than not getting any of them this morning due to her significant pain level. Her last bowel movement was 2 days ago and admits to intermittent constipation. Pt does require supplemental O2 at bedtime and wears 2L, recently she has turned this up to 2.5-3 L at bedtime and is intermittently wearing it during the day because she feels better with it on. CODE STATUS was discussed with her and her at bedside and she adamantly wants to remain a full code. Patient is agreeable to holding MS ER and transitioning to fentanyl patch, will continue MS IR as needed moderate pain and IV Dilaudid as needed severe breakthrough pain relief. Admission Exam Per Admitting Provider General: awake, alert, no apparent distress, alopecia, chronically ill-appearing white female Head: Normocephalic, atraumatic ENT: PERRL, EOMI, no pharyngeal exudate, +mucous membranes slightly dry Chest: Clear to auscultation, on room air, no adventitious breath sounds on to L via NC with O2 sats in mid 90s Cardiac: Regular rhythm, slightly tachycardic with heart rate in the low 100s, no murmur, no JVD, normal peripheral pulses, good capillary refill Abdominal: NABS x 4 quadrants, soft, nondistended, nontender to palpation, no rebound or guarding Extremities: Normal inspection, no peripheral edema or erythema, calfs nontender to palpation, patient will not allow me to examine her left hip due to pain. She moves about in bed without difficulty attempting to get comfortable throughout exam. Psych: Anxious and intermittently tearful mood and affect Neuro: AAO x 3, strength intact bilaterally and rated 5/5, no motor deficits, speech is clear, no peripheral sensory deficits Principal Diagnosis Intractable cancer pain Discharge Exam Constitutional: WD/WN, vitals as above, NAD, sitting up in bed, pleasant, conversing easily Respiratory: normal respiratory effort, lungs clear to auscultation, no wheeze, rales, rhonchi. Normal insp/exp effort, no accessory muscle use Cardiovascular: RRR, no murmur, no edema Vessels: no JVD or carotid bruit Chest: normal inspection of chest Abdomen: normal bowel sounds, soft, nontender, no hepatosplenomegaly Musculoskeletal: no cyanosis or clubbing, extremities motor strength 5/5 Skin: no rashes, warm and dry normal turgor Neurologic: PERRL, EOMI, accommodation nl, no face palsy, no dysarthria CN's II- XI intact bilaterally and moves all extremities Psychiatric: A+Ox3, euthymic affect Discharge Data Allergies Allergy/AdvReac Type Severity Reaction Status Date / Time levofloxacin [From Levaquin] Allergy Severe THROAT Verified 06/16/23 18:22 SWELLS SHUT, ITCHY--RASH PER GMG Penicillins Allergy Severe Anaphylaxis Verified 06/16/23 18:22 clindamycin Allergy Intermediate CAUSED A Verified 06/16/23 18:22 YEAST INFECTION X 6 MONTHS povidone-iodine Allergy Intermediate Rash Verified 06/16/23 18:22 [From Betadine] silver Allergy Intermediate Rash Verified 06/16/23 18:22 [From Tegaderm AG Mesh] bupropion [From Wellbutrin] AdvReac Severe suicidal Verified 06/16/23 18:22 ideation duloxetine AdvReac Severe suicidal Verified 06/16/23 18:22 ideations sulfamethoxazole AdvReac Mild YEAST Verified 06/16/23 18:22 [From Bactrim] INFECTION trimethoprim [From Bactrim] AdvReac Mild YEAST Verified 06/16/23 18:22 INFECTION ANESTHESIA AdvReac Severe PER Uncoded 06/16/23 18:22 GMG--PSEUDOCHLOINESTERASE---FLAT LINES PLASTIC AdvReac Severe SKIN PEELS Uncoded 06/16/23 18:22 Consultations 06/19/23 14:58 ED Decision to Admit Stat 06/19/23 15:12 Consult Palliative Care Routine 06/19/23 15:45 Consult Oncology Routine Ordered Studies 06/20/23 08:09 MRI Brain [MR brain wo/w con] Routine Hospital Course (1) Primary adenocarcinoma of upper lobe of right lung: (2) Cancer-related breakthrough pain: (3) Lung cancer metastatic to brain: (4) Metastatic adenocarcinoma: (5) Tobacco abuse: (6) Systemic lupus erythematosus: Ms. Lowe is a 43 yo F, PMHx includes HTN, lung adenocarcinoma with bone and brain mets status post chemo/radiation, PEoff of anticoagulationdue to brain mets vasogenic edema, chronic pancytopenia [baseline hemoglobin around 8-9], endometrial cancer status post surgery, prediabetes, SLE, cancer pain on narcotics, ADD/mood disorder, pseudocholinesterase deficiency,esophageal ulcers as per records presented to the ED with intractable pain. Patient was started on fentanyl patch 50 mcg and oral Dilaudid for breakthrough pain. Morphine was stopped. She reported improvement in the pain. Patient wanted to get discharged from the hospital as she felt that her pain is adequately controlled. MRI of the brain was done as recommended by oncology. Patient to follow-up with PCP, oncology and palliative care as outpatient. Please note the above document was generated using voice recognition software. It may contain grammatical, syntax or spelling errors. Any formal questions or concerns about the content, text or information contained within the body of this dictation should be directly addressed to the provider for clarification Total Time Total Time Spent Total Time Spent (In Minutes): 35 Total Time Includes: Examination of the Patient, Discharge Planning, Medication Reconciliation, Communication With Other Providers and Other Discharge Plan Discharge Items Patient Disposition: Home - Self-Care Reason For Visit: INTRACTABLE PAIN Discharge Diagnosis: Cancer related pain Activity: Resume your previous activity Non-emergency contact: Primary Care Provider Call non-emergency contact if: you have any medication questions Follow-up/Referrals: Josue Blake MD [Primary Care Provider] - Diet: Regular Addtl Attending Provider Instructions: You are prescribed fentanyl patch. It works for 3 days. Please change the patch every 72 hours. You are also prescribed Dilaudid as needed for pain control. Please follow-up with palliative care and primary care doctor. Pending Studies at Discharge: No Stand-Alone Forms: My Graf[employer], Smoking Cessation Medications and DC Order Prescriptions: New fentanyl 50 mcg/hr Patch 72 Hour 50 mcg transdermal Q3D Qty: 5 0RF hydromorphone 8 mg Tablet 8 mg PO Q4H PRN (Reason: pain) Qty: 20 0RF Continued Magic Mouthwash 300 mL mouthwash 10 ml mucous membrane ACHS PRN (Reason: dysphagiea) benzonatate 100 mg capsule 100 mg PO TID PRN (Reason: Cough) Qty: 60 1RF ondansetron HCl 8 mg tablet 8 mg PO TID PRN (Reason: Nausea And Vomiting) lorazepam 0.5 mg tablet 0.5 mg PO TID PRN (Reason: Anxiety) cyanocobalamin (vitamin B-12) 1,000 mcg/mL solution 1,000 mcg IM MONTHLY chlorpromazine 25 mg tablet 25 mg PO QID PRN (Reason: Hiccups) folic acid 1 mg tablet 1 mg PO DAILY albuterol sulfate [Ventolin HFA] 90 mcg/actuation HFA aerosol inhaler 2 puff INHALATION Q4H PRN (Reason: Shortness Of Breath Or Wheezing) fluticasone propion-salmeterol [Advair HFA] 230-21 mcg/actuation HFA aerosol inhaler 2 puff INHALATION BID Incruse Ellipta 62.5 mcg/actuation blister with device 1 inh INHALATION DAILY albuterol sulfate 2.5 mg /3 mL (0.083 %) Solution For Nebulization 2.5 mg INHALATION Q4H PRN (Reason: Shortness Of Breath Or Wheezing) gabapentin 300 mg capsule 300 mg PO TID pantoprazole 40 mg tablet,delayed release (DR/EC) 40 mg PO BID Qty: 90 0RF spironolactone 100 mg tablet 200 mg PO BID potassium chloride 20 mEq tablet,ER particles/crystals 20 meq PO QAM baclofen 10 mg Tablet 10 mg PO TID Discontinued morphine 20 mg/5 mL (4 mg/mL) solution 10 mg PO Q4H PRN (Reason: If 30mg immediate release doesn't help pain) morphine 30 mg tablet 30 mg PO Q4H PRN (Reason: If 30mg extended release doesn't help pain) morphine 30 mg tablet extended release 30 mg PO BID Discharge Orders: Discharge Order (Routine); Ordered 06/20/23 Ordered By: Teofilo Shultz Admission Data Admit Date/Time: 06/19/23 15:12 Attending Provider: Teofilo Shultz Admit Provider: April Freeman Primary Care Provider: Josue Blake Other Providers: Marissa Hickman; April Freeman; Vandana Ram
== END 2023-06-20 17:33 | disposition home or self-care (01) ==
LOC: ED 11:40 → INTOOBSV 15:12 → 2W 15:12 → SUATTDRO 15:12 → 2W 16:47

== ENCOUNTER 2023-07-05 05:25 | Observation (INO) ==
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
--- OUTSIDE RECORDS SUMMARY | 2023-07-05 05:59 | External Medical Summary | Summary of Care ---
Author Name Unknown Organization [facility] Address [address] [place] [address] Phone [phone] Care Team Providers Care Claims Service Representative Name Role Phone Josue Blake MD Primary Care Provider [phone] Reason for Visit * Reason Onset Date Comments Advice 07/02/2023 Encounter Details Date Type Department Care Team (Late st Contact Info) Description 07/02/2023 Telephone Palliative Medicine, [address] 5th [place] [address] Becky Dial MD [address] [place] [address] [phone] Advice Allergies Active Allergy Reactions Criticality Noted [...] BEDTIME 120 Tablet 2 01/09/2023 Active Umeclidinium [place] 62.5 MCG/ACT Inhalation Aerosol Powder Breath Activated [...] friend with a contact number to a chcf/DV housing * Telephone Encounter - Vickie Chavez CRNP - 07/02/2023 1:34 PM EST Rebecca - please call Kassandra from [facility] to thank her for letting us know. [...] - 07/02/2023 1:13 PM EST Kassandra from [facility] Oncology called to report to provider that [...] Info) Description 07/20/2023 11:00 AM EST Telemedicine [facility] at [facility] [address] [place] [address] Estelle Davis PA-C [address] [place] [address] Nenita Cantu [address] [place] [address] 07/28/2023 10:30 AM EST Telemedicine Palliative Medicine, [facility] 400 [facility] 5th [place] [address] Becky Dial MD [address] [place] [address] 11/02/2023 12:00 PM EDT Office Visit Family [facility] [address] [place] [address] Josue Blake MD [address] [place] [address] Health Maintenance Due Date Last Done Comments [...] this encounter Medical Devices Implanted Type Area Process Control Engineer Device Identifier Shelf Expiration Date Model / Serial / Lot Desara One Single Incision Sling System Implanted:Qty: 1 on 07/11/2022 by Derek Monzon MD at OR [facility] [employer] 10/17/2023 [id number] / / [id number] Port Implant W/8f Poly Cath - [id number] Implanted:Qty: 1 on 10/27/2022 at [facility] CR BARD : PERIPHERAL VASCULAR [id number] 10/27/2023 [id number] / / [id number] Clip Padlock Pro Select - [id number] Implanted:Qty: 1 on 05/13/2023 by Destin Zhong MD at OR [facility] [employer] [id number] 03/05/2026 [id number] / / [id number] documented as of this encounter Advance Directives [...] the patient have Health Care Power of Experimental Aircraft Mechanic? No Code Status History Code Status Date Activated Date Inactivated Comments Full Code 07/11/2022 8:35 AM 07/11/2022 3:33 PM This order reflects the patients wishes and were consensually agreed upon. Question Answer Comments Discussion of Advance Directives occurred with: Patient Does the patient have a Living Will? No Does the patient have Health Care Power of Experimental Aircraft Mechanic? No Care Teams Claims Service Representative Relationship Specialty Start Date End Date Josue Blake MD [address] [place] [address] PCP - General Family Medicine 02/06/22 documented as of this encounter
--- OUTSIDE RECORDS SUMMARY | 2023-07-05 05:59 | External Medical Summary | Summary of Care ---
Author Name Unknown Organization [facility] Address [address] [place] [address] Phone [phone] Care Team Providers Care Morals Squad Police Officer Name Role Phone Josue Blake MD Primary Care Provider [phone] [phone] Encounter Details Date Type Department Care Team (Late st Contact Info) Description 07/02/2023 Telephone Palliative Medicine, [facility] 400 [facility] 5th Floor [place], [place] [phone] Vickie Chavez CRNP [address] [place], [place] [phone] Allergies Active Allergy Reactions Criticality Noted Date [...] BEDTIME 120 Tablet 2 01/09/2023 Active Umeclidinium [place] 62.5 MCG/ACT Inhalation Aerosol Powder Breath Activated [...] EST Received the following message from Raquel Ranshaw anita WHITMORE: "Ritchie Lowe presented to [facility] with her best friend of 30 years [...] per best friend." [facility]'s friend. I recommended for the staff member who patient's friend reported this to, to call Adult Protective Services to make a report. APS may be able to do a well- check. I also asked [place] staff to obtain a UDStoday if able and forward the results to us. HAIM Wong Palliative Medicine Nurse Practitioner [facility] [email or web address] documented in this encounter Plan of Treatment Upcoming Encounters Date Type Department Care Team (Late st Contact Info) Description 07/20/2023 11:00 AM EST Telemedicine [facility] at [facility] [address] [place] [address] Estelle Davis PA-C [address] [place] [address] Nenita Cantu, [address] [place] [address] 07/28/2023 10:30 AM EST Telemedicine Palliative Medicine, [facility] 400 [facility] 5th [place] [address] Becky Dial MD [address] [place] [address] 11/02/2023 12:00 PM EDT Office Visit Family Practice [facility] 132 [facility] [place] [address] Josue Blake MD 132 [facility] [place] [address] Health Maintenance Due Date Last Done Comments [...] this encounter Medical Devices Implanted Type Area Log Hooker Device Identifier Shelf Expiration Date Model / Serial / Lot Desara One Single Incision Sling System Implanted:Qty: 1 on 07/11/2022 by Derek Monzon MD at OR [facility] [employer] 10/17/2023 [id number] / / [id number] Port Implant W/8f Poly Cath - [id number] Implanted:Qty: 1 on 10/27/2022 at [facility] CR BARD : PERIPHERAL VASCULAR [id number] 10/27/2023 [id number] / / [id number] Clip Padlock Pro Select - [id number] Implanted:Qty: 1 on 05/13/2023 by Destin Zhong MD at OR [facility] [id number] 03/05/2026 [id number] / / [id number] documented as of this encounter Advance Directives [...] the patient have Health Care Power of Baking Assistant? No Code Status History Code Status Date Activated Date Inactivated Comments Full Code 07/11/2022 8:35 AM 07/11/2022 3:33 PM This order reflects the patients wishes and were consensually agreed upon. Question Answer Comments Discussion of Advance Directives occurred with: Patient Does the patient have a Living Will? No Does the patient have Health Care Power of Baking Assistant? No Care Teams Morals Squad Police Officer Relationship Specialty Start Date End Date Josue Blake MD [address] [place] [address] PCP - General Family Medicine 02/06/22 documented as of this encounter
--- OUTSIDE RECORDS SUMMARY | 2023-07-05 05:59 | External Medical Summary | Summary of Care ---
Author Name Unknown Organization [facility] Address [address] [place] [address] Phone [phone] Care Team Providers Care Rotary Dump Operator Name Role Phone Josue Blake MD Primary Care Provider [phone] Encounter Details Date Type Department Care Team (Late st Contact Info) Description 07/02/2023 Telephone Palliative Medicine, [facility] 400 [facility] 5th Floor [place], [place] [phone] Vickie Chavez CRNP [address] [place], [place] [phone] Allergies Active Allergy Reactions Criticality Noted Date [...] BEDTIME 120 Tablet 2 01/09/2023 Active Umeclidinium [place] 62.5 MCG/ACT Inhalation Aerosol Powder Breath Activated [...] encounter Miscellaneous Notes * Telephone Encounter - Vickie Chavez CRNP - 07/02/2023 12:41 PM EST Received the following message from [facility] palliative HAIM: "Ritchie Lowe presented to [facility] with her best friend of 30 years [...] per best friend." [facility]'s friend. I recommended for the staff member who patient's friend reported this to, to call Adult Protective Services to make a report. APS may be able to do a well- check. I also asked OR staff to obtain a UDStoday if able and forward the results to us. HAIM Wong Palliative Medicine Nurse Practitioner [facility] [email or web address] documented in this encounter Plan of Treatment Upcoming Encounters Date Type Department Care Team (Late st Contact Info) Description 07/20/2023 11:00 AM EST Telemedicine [facility], [place] 300 [place] [address] Estelle Davis PA-C [address] [place] [address] Nenita Cantu, [facility] [address] [place] [address] 07/28/2023 10:30 AM EST Telemedicine Palliative Medicine, [facility] 400 [facility] 5th [place] [address] Becky Dial MD [address] [place] [address] 11/02/2023 12:00 PM EDT Office Visit Family Practice [facility] [address] [place] [address] Josue Blake MD [address] [place] [address] Health Maintenance Due Date Last Done Comments [...] this encounter Medical Devices Implanted Type Area Wharf Tender Device Identifier Shelf Expiration Date Model / Serial / Lot Desara One Single Incision Sling System Implanted:Qty: 1 on 07/11/2022 by Derek Monzon MD at OR [facility] [employer] 10/17/2023 [id number] / / [id number] Port Implant W/8f Poly Cath - [id number] Implanted:Qty: 1 on 10/27/2022 at [facility] CR BARD : PERIPHERAL VASCULAR [id number] 10/27/2023 [id number] / / [id number] Clip Padlock Pro Select - [id number] Implanted:Qty: 1 on 05/13/2023 by Destin Zhong MD at OR [facility] ENDOSCOPY GROUP [id number] 03/05/2026 [id number] / / [id number] documented as of this encounter Advance Directives [...] the patient have Health Care Power of Trucksmith? No Code Status History Code Status Date Activated Date Inactivated Comments Full Code 07/11/2022 8:35 AM 07/11/2022 3:33 PM This order reflects the patients wishes and were consensually agreed upon. Question Answer Comments Discussion of Advance Directives occurred with: Patient Does the patient have a Living Will? No Does the patient have Health Care Power of Trucksmith? No Care Teams Rotary Dump Operator Relationship Specialty Start Date End Date Josue Blake MD [address] [place] [address] PCP - General Family Medicine 02/06/22 documented as of this encounter
--- OUTSIDE RECORDS SUMMARY | 2023-07-05 05:59 | External Medical Summary | Summary of Care ---
Author Name Unknown Organization [facility] Address [address] [place] [address] Phone [phone] Care Team Providers Care Bar Tender Name Role Phone Benji Gabriel MD Primary Care Provider [phone] [phone] Reason for Visit * Reason Onset Date Comments Medication Refill 07/01/2023 Encounter Details Date Type Department Care Team (Late st Contact Info) Description 07/01/2023 Refill [facility] [address] [facility] [place] [phone] Benji Gabriel MD [address] [facility] [place] [address] Primary adenocarcinoma of upper lobe of right lung (HCC) Allergies Active Allergy Reactions Criticality Noted Date [...] as of this encounter (statuses as of 07/01/2023) Medications Medication Sig Dispensed Refills Start Date End Date Status BD Luer-Tamar Syringe 25G X 1" 3 ML (Syringe/Needle (Disp)) USE ONE SYRINGE FOR B12 INJECTIONS Strength: 25G X 1" 3 ML 1 Each 3 Active Promethazine HCl 25 MG Oral Tablet (Phenergan) Take 1 Tablet by mouth every 6 hours as needed for Nausea. or vomiting 12 Tablet 0 3 Active Additional Information Patient taking differently: 12.5 mgOral Q6H PRN, Nausea, or vomiting, Reported on 01/28/2023 Spironolactone 100 MG Oral Tablet (Aldactone) TAKE TWO TABLETS BY MOUTH IN THE MORNING AND TWO TABLETS BEFORE BEDTIME 120 Tablet 2 3 Active Umeclidinium [place] 62.5 MCG/ACT Inhalation Aerosol Powder Breath Activated (INCRUSE ellipta)Indications :COPD, severity to be determined (HCC) Inhale 1 Puff by mouth in the morning. 30 Each 5 3 Active Alum & Mag Hydroxide-Simeth (MAGIC MOUTHWASH) OR 10ml TO mucosal AREA BEFORE meals AND AT BEDTIME 0 3 Active Sharps Container Use as directed for disposal of sharps. 1 Each 5 3 Active Additional Information Patient not taking.Reported on 06/02/2023 Bisacodyl 10 MG Rectal Suppository (Dulcolax)Indicatio ns:Constipation due to opioid therapy Administer 1 Suppository into the rectum in the morning and 1 Suppository in the evening. 24 Suppository 0 3 Active Additional Information Patient not taking.Reported on 06/08/2023 Polyethylene Glycol 3350 17 GM/SCOOP Oral Powder (MiraLax)Indication s:Primary adenocarcinoma of upper lobe of right lung (HCC) Take 17 g by mouth in the morning and 17 g before bedtime. 255 g 0 3 Active Sennosides 8.6 MG Oral Tablet (Senokot) Take 2 Tablets by mouth in the morning and 2 Tablets at noon and 2 Tablets before bedtime. Taking 2 at bedtime. 90 Tablet 0 3 Active LORazepam 0.5 MG Oral Tablet (Ativan)Indications :LEAH (generalized anxiety disorder) Take 1 Tablet by mouth in the morning and 1 Tablet at noon and 1 Tablet before bedtime. 90 Tablet 0 3 Active Additional Information Patient taking differently:0.5 mg Oral TID(AM/NOON/HS),Taking as needed, Reported on 06/08/2023 Famotidine 10 MG Oral Tablet (Pepcid)Indications :Primary adenocarcinoma of upper lobe of right lung (HCC) Take 1 Tablet by mouth in the morning and 1 Tablet before bedtime. 60 Tablet 3 3 Active Pantoprazole Sodium 40 MG Oral Tablet Delayed Release (Protonix)Indicatio ns:Primary adenocarcinoma of upper lobe of right lung (HCC) Take 1 Tablet by mouth daily. 30 Tablet 3 3 Active Fluticasone-Salmete rol 230-21 MCG/ACT Inhalation Aerosol (Advair)Indications :COPD, severity to be determined (HCC) Inhale 2 Puffs by mouth in the morning and 2 Puffs before bedtime. 12 g 12 3 Active Ventolin HFA 108 (90 Base) MCG/ACT Inhalation Aerosol SolutionIndications :COPD, severity to be determined (HCC) Inhale 2 Puffs by mouth every 4 hours as needed for Cough, Shortness of Breath or Wheezing. 18 g 1 3 Active Folic Acid 1 MG Oral TabletIndications:P rimary adenocarcinoma of upper lobe of right lung (HCC),Metastasis to mediastinal lymph node (HCC),Metastasis to bone (HCC),Metastasis to brain (HCC) Take 1 Tablet by mouth in the morning. 30 Tablet 5 3 Active chlorproMAZINE HCl 25 MG Oral Tablet (Thorazine)Indicati ons:Primary adenocarcinoma of upper lobe of right lung (HCC),Mediastinal lymphadenopathy,Int ractable hiccups Take 1 Tablet by mouth 4 times a day as needed for Other (hiccups). 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 Do not cut, crush, or chew. 50 Capsule 1 3 Active Promethazine HCl 25 MG Rectal Suppository (Phenergan)Indicati ons:Bilious vomiting with nausea Administer 1 Suppository into the rectum every 6 hours as needed for Nausea. 10 Suppository 1 3 Active Full Kit Nebulizer Set Patient needs tubing and mask 1 Each 1 3 Active Additional Information Patient not taking.Reported on 06/15/2023 Ipratropium-Albuter ol 0.5-2.5 (3) MG/3ML Inhalation Solution (Duoneb) Inhale 3 mL via nebulizer in the morning and 3 mL at noon and 3 mL in the evening and 3 mL before bedtime. 120 mL 1 3 Active Additional Information Patient not taking.Reported on 06/15/2023 guaiFENesin ER 600 MG Oral Tablet Extended Release 12 Hour (Mucinex) Take 1 Tablet by mouth 2 times a day as needed for Congestion. Take with plenty of water. Do not cut, crush or chew 40 Tablet 2 3 Active Potassium Chloride ER 20 MEQ Oral [...] morning and evening meals. 20 Tablet 0 3 Active fentaNYL 50 MCG/HR Transdermal Patch 72 Hour (Duragesic)Indicati ons:Cancer related pain Place 1 Patch over 72 hours topically on the skin every 3 days. 5 Patch 0 3 Active HYDROmorphone HCl 4 MG Oral Tablet (Dilaudid)Indicatio ns:Cancer related pain Take 1 Tablet by mouth every 4 hours as needed for Pain, Severe. 30 Tablet 0 4 Active Ibuprofen 800 MG Oral Tablet (Motrin)Indications :Cancer related pain Take 1 Tablet by mouth every 8 hours as needed for Pain, Moderate. 60 Tablet 0 4 Active Ondansetron HCl 8 MG Oral Tablet (Zofran)Indications :Primary adenocarcinoma of upper lobe of right lung (HCC) Take 1 Tablet by mouth every 8 hours as needed for Nausea. 30 Tablet 1 4 Active Ondansetron HCl 8 MG Oral Tablet (Zofran)Indications :Primary adenocarcinoma of upper lobe of right lung (HCC) Take 1 Tablet by mouth every 8 hours as needed for Nausea. 30 Tablet 1 3 07/01/19 24 Discontinu ed(Refill) Hospital, Clinic, or Other Facility Administered Medication Ordered Dose Route Frequency Start Date End Date Status hEParin 10,000 Units, bupivacaine (Sensorcaine) 30 mL, methylPREDNISolone sodium succ (SOLU-Medrol) 125 mg, gentamicin 80 mg, sodium bicarbonate 2 mEq bladder instillationIndications:Inter stitial cystitis IS QWEEK 08/19/2022 Active documented as of this encounter (statuses as of 07/01/2023) Active Problems Problem Noted Date Diagnosed Date [...] as of this encounter (statuses as of 07/01/2023) Resolved Problems Problem Noted Date Diagnosed Date [...] as of this encounter (statuses as of 07/01/2023) Immunizations Name Administration Dates Next Due TDAP [...] encounter Miscellaneous Notes * Telephone Encounter - Benji Gabriel MD - 07/01/2023 12:26 PM ESTSigned Prescriptions: Disp Refills Ondansetron HCl 8 MG Oral Tablet (Zofran) 30 Tab*1 Sig: Take 1 Tablet by mouth every 8 hours as needed for Nausea. Authorizing Provider: BENJI GABRIEL * Telephone Encounter - Megha Ray RN - 07/01/2023 11:18 AM EST Did you pend patient's preferred pharmacy and medication before forwarding?yes Pharmacy: [facility] Pending Prescriptions: Disp Refills Ondansetron HCl 8 MG Oral Tablet (Zofran) 30 Tab*1 Sig: Take 1 Tablet by mouth every 8 hours as needed for Nausea. Last Visit: 05/04/2023 (in office), Visit date not found (telemedicine) Next Visit: 11/02/2023 If no future appointments scheduled, and last appointment is greater than a year ago, please schedule patient for a follow-up appointment Last date the medication was ordered: 03/23/2023 Is this request for a controlled substance?No Urine Drug Screen:No results found for this or any previous visit. Patient Phone Numbers Labs: Lab Results Component Value Date/Time CREAT 0.66 06/16/2023 12:00 AM CREAT 0.84 03/27/2022 07:21 AM CREAT 0.8 04/23/2020 01:49 PM POTASSIUM 3.3 (A) 06/16/2023 12:00 AM POTASSIUM 3.5 (L) 03/27/2022 07:21 AM TSH 1.01 04/02/2023 09:03 AM TSH 2.090 03/27/2022 12:00 AM ALT 10 04/29/2023 01:25 AM ALT 15 04/23/2020 01:49 PM HGBA1C 5.1 10/14/2022 10:03 AM HGBA1C 5.8 03/27/2022 07:21 AM documented in this encounter Plan of Treatment Upcoming Encounters Date Type Department Care Team (Late st Contact Info) Description 07/20/2023 11:00 AM EST Telemedicine [facility] [address] [place] [address] Estelle Davis PA-C [address] [place] [address] Nenita Cantu, [facility] [address] [place] [address] 07/28/2023 10:30 AM EST Telemedicine Palliative Medicine, [facility] 400 [facility] 5th [place] [address] Becky Dial MD 400 [facility] [place], [place] [id number] 11/02/2023 12:00 PM EDT Office Visit [facility] [address] [place] [address] Benji Gabriel MD [address] [place] [address] Health Maintenance Due Date Last Done Comments [...] this encounter Medical Devices Implanted Type Area Food Assembler Commissary Kitchen Device Identifier Shelf Expiration Date Model / Serial / Lot Desara One Single Incision Sling System Implanted:Qty: 1 on 07/11/2022 by Derek Monzon MD at OR [facility] [employer] 10/17/2023 [id number] / / [id number] Port Implant W/8f Poly Cath - [id number] Implanted:Qty: 1 on 10/27/2022 at [facility] CR BARD : PERIPHERAL VASCULAR [id number] 10/27/2023 [id number] / / [id number] Clip Padlock Pro Select - [id number] Implanted:Qty: 1 on 05/13/2023 by Destin Zhong MD at [facility] [id number] 03/05/2026 [id number] / / [id number] documented as of this encounter Visit Diagnoses Diagnosis Primary adenocarcinoma of upper lobe of right lung (HCC) documented in this encounter Advance Directives Latest [...] the patient have Health Care Power of Pellet Post Inspector? No Code Status History Code Status Date Activated Date Inactivated Comments Full Code 07/11/2022 8:35 AM 07/11/2022 3:33 PM This order reflects the patients wishes and were consensually agreed upon. Question Answer Comments Discussion of Advance Directives occurred with: Patient Does the patient have a Living Will? No Does the patient have Health Care Power of Pellet Post Inspector? No Care Teams Bar Tender Relationship Specialty Start Date End Date Benji Gabriel MD [address] [place] [address] PCP - General Family Medicine 02/06/22 documented as of this encounter
--- OUTSIDE RECORDS SUMMARY | 2023-07-05 06:00 | External Medical Summary | Summary of Care ---
Author Name Unknown Organization [facility] Address [address] [place] [address] Phone [phone] Care Team Providers Care Med Care Manager Name Role Phone Josue Blake MD Primary Care Provider [phone] Reason for Referral * Evaluate & Treat - Unlimited Visits (Within 10 days (routine)) - Authorized Specialty Diagnoses / Procedures Referred By Cezar gillespie Referred To Contact HOME CARE / Home Care Diagnoses Cancer related pain Primary adenocarcinoma of upper lobe of right lung (HCC) Becky Dial MD [address] [place] [id number] Referral ID Status Reason Start Date Expiration Date Visits Requested Visits Authorized [id number] Authorized Specialty Services Required 06/30/2023 999 999 Question Answer Referral Priority Within 10 days (routine) Where should this appointment be scheduled? Gloria Comments Documentation of [id number] Encounter Addendum Patient Name: Ritchie Lowe I certify that this patient is under my care and that I, or a nurse practitioner or physician's human resources executive assistant working with me, had a [id number] encounter that meets the physician stek-lf-agna encounter requirements with this patient on: 06/30/2023 The encounter with the patient was in whole, or in part, for the following medical condition, which is the primary reason for home health care (List medical condition): Medication management I certify that, based on my findings, the following services are medically necessary home health services: Nursing and Physical Therapy To provide the following care/treatments: (All hospitalists not following the patient after discharge should complete this section): PT eval and treat for cancer related weakness, nursing for med management Primary Care Physician to follow home care plan of care after discharge: Dr Blake My clinical findings support the need for the above services because: Pt has stage IV cancer, is on immunotherapy and getting weaker. Would benefit from in home PT Further, I certify that my clinical findings support that this patient is homebound (i.e. Absences from home require considerable and taxing effort and are for medical reasons or amish services or infrequently or of short duration when for other reason) because: Pt has stage IV cancer, is getting weaker, finds it very hard to leave the home, unable to attend in person PT. Has had complex medications as well, would benefit from nursing help at home. Physician Signature: Date of Signature: Physician Printed Name: Becky Dial MD Reason for Visit * Reason Comments Follow Up Pain Encounter Details Date Type Department Care Team (Late st Contact Info) Description 06/30/2023 10:00 AM EST Telemedicine Palliative Medicine, [address] [place] [address] Becky Dial MD [address] [place] [id number] Cancer related pain*; Constipation due to pain medication; Tobacco use disorder; Metastasis to mediastinal lymph node (HCC); Primary adenocarcinoma of upper lobe of right [...] as of this encounter (statuses as of 06/30/2023) Medications Medication Sig Dispensed Refills Start Date [...] 120 Tablet 2 01/10/20 23 Active Umeclidinium [place] 62.5 MCG/ACT Inhalation Aerosol Powder Breath Activated (INCRUSE ellipta)Indication s:COPD, severity to be determined (HCC) Inhale 1 Puff by mouth in the morning. 30 Each 01/30/20 23 Active Alum & Mag Hydroxide-Simeth (MAGIC MOUTHWASH) OR 10ml TO mucosal AREA BEFORE meals AND AT BEDTIME 0 01/25/20 23 Active Sharps Container Use as directed for disposal of sharps. 1 Each 01/29/20 23 Active Additional Information Patient not [...] g before bedtime. 255 g 0 02/05/20 23 Active Sennosides 8.6 MG Oral Tablet (Senokot) Take 2 Tablets by mouth in the morning and 2 Tablets at noon and 2 Tablets before bedtime. Taking 2 at bedtime. 90 Tablet 0 02/05/20 23 Active LORazepam 0.5 MG Oral Tablet (Ativan)Indication s:ELAH (generalized anxiety disorder) Take 1 Tablet by mouth in the morning and 1 Tablet at noon and 1 Tablet before bedtime. 90 Tablet 0 03/10/20 23 Active Additional Information Patient taking differently:0.5 mg [...] for Other (hiccups). 30 Tablet 0 03/24/20 23 Active Ondansetron HCl 8 MG Oral Tablet (Zofran)Indication s:Primary adenocarcinoma of upper lobe of right lung (HCC) Take 1 Tablet by mouth every 8 hours as needed for Nausea. 30 Tablet 1 03/23/20 23 Active dexAMETHasone 4 MG Oral Tablet (Decadron)Indicati [...] crush, or chew. 50 Capsule 1 06/02/20 23 Active Promethazine HCl 25 MG Rectal Suppository [...] mL before bedtime. 120 mL 1 06/10/20 23 Active Additional Information Patient not taking.Reported on 06/15/2023 guaiFENesin ER 600 MG Oral Tablet Extended Release 12 Hour (Mucinex) Take 1 Tablet by mouth 2 times a day as needed for Congestion. Take with plenty of water. Do not cut, crush or chew 40 Tablet 2 06/12/20 23 Active Potassium Chloride ER 20 MEQ [...] meals. 20 Tablet 0 06/17/20 23 Active fentaNYL 50 MCG/HR Transdermal Patch 72 Hour (Duragesic)Indicat ions:Cancer related pain Place 1 Patch over 72 hours topically on the skin every 3 days. 5 Patch 0 06/23/20 23 Active HYDROmorphone HCl 4 MG Oral Tablet (Dilaudid)Indicati ons:Cancer related pain Take 1 Tablet by mouth every 4 hours as needed for Pain, Severe. 30 Tablet 0 06/30/19 24 Active Ibuprofen 800 MG Oral Tablet (Motrin)Indication s:Cancer related pain Take 1 Tablet by mouth every 8 hours as needed for Pain, Moderate. 60 Tablet 0 06/30/19 24 Active Chantix Starting Month Michael 0.5 MG X 11 & 1 MG X 42 Tablet Therapy Pack (Varenicline Tartrate (Starter))Indicati ons:Encounter for smoking cessation counseling Follow the direction on package. Initial: Days 1 to 3: 0.5 mg once daily. Days 4 to 7: 0.5 mg twice daily. Maintenance (day 8 and later): 1 mg twice daily 53 Each 0 01/29/20 23 024 Discontinued Ibuprofen 800 MG Oral Tablet (Motrin) Take 1 Tablet by mouth every 6 hours as needed. 0 024 Discontinued(Re fill) Baclofen 10 MG Oral Tablet (Lioresal)Indicati ons:Cancer related pain Take 1 Tablet by mouth 3 times a day as needed for Muscle spasms. 30 Tablet 0 06/17/20 23 024 Discontinued HYDROmorphone HCl 4 MG Oral Tablet (Dilaudid)Indicati ons:Cancer related pain Take 1 Tablet by mouth every 4 hours as needed for Pain, Severe. 30 Tablet 0 06/24/20 23 024 Discontinued(Re fill) Hospital, Clinic, or Other Facility Administered Medication Ordered Dose Route Frequency Start Date End Date Status hEParin 10,000 Units, bupivacaine (Sensorcaine) 30 mL, methylPREDNISolone sodium succ (SOLU-Medrol) 125 mg, gentamicin 80 mg, sodium bicarbonate 2 mEq bladder instillationIndications:Inter stitial cystitis IS QWEEK 08/19/2022 Active documented as of this encounter (statuses as of 06/30/2023) Active Problems Problem Noted Date Diagnosed Date [...] IIIA(cT2b, cN2, cM0) - Signed by Miguelangel rCawford MD on 10/16/2022 Pseudocholinesterase deficiency 09/23/2022 Tobacco use disorder 04/30/2020 Obesity, Class I, BMI 30.0-34.9 (see actual BMI) 04/30/2020 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 Fibromyalgia 12/08/2012 ADHD (attention deficit hyperactivity disorder) PCOS (polycystic ovarian syndrome) Bipolar 1 disorder documented as of this encounter (statuses as of 06/30/2023) Resolved Problems Problem Noted Date Diagnosed Date Resolved Date Odynophagia 04/29/2023 05/04/2023 Food insecurity 12/08/2022 01/07/2023 Overview: Per [facility] Protocol Upper respiratory tract infection 11/12/2022 01/07/2023 Mediastinal lymphadenopathy 10/31/2022 04/26/2023 Encounter for antineoplastic chemotherapy 10/31/2022 04/26/2023 Prediabetes 05/12/2022 07/10/2022 Overview: Per Prediabetes protocol Advanced directives, counseling/discussion 07/13/2020 03/20/2022 Stress incontinence 05/04/2020 03/24/20 22 Urge incontinence of urine 05/04/2020 0 03/24/2022 Urinary incontinence without sensory awareness 05/04/2020 03/20/2022 Family history of breast cancer 04/30/2020 03/20/2022 Systemic lupus erythematosus 02/28/2020 01/07/2023 Subacute cutaneous lupus erythematosus 12/08/2012 03/20/2022 documented as of this encounter (statuses as of 06/30/2023) Immunizations Name Administration Dates Next Due TDAP [...] No 04/28/2023 documented as of this encounter Progress Notes * Becky Dial MD - 06/30/2023 10:00 AM EST Palliative Medicine Outpatient Progress Note IN HOME TELEMEDICINE VISIT [facility], [facility] [address] [place] [id number] Name: Ritchie Lowe Date: 06/30/2023 I was in a hospital or clinic location. After connecting through televideo, patient was verified with two unique identifiers. Patient (or authorized legal in store representative) was then informed that this was a Telemedicine visit and being conducted confidentially over secure lines. Methods to assure confidentiality were taken. Patient acknowledged consent and understanding of privacy and security of the Telemedicine visit. The patient agreed to participate. 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 Current pain regimen: Fentanyl patch 50mcg/hr and Dilaudid 4mg tab q4h PRN breakthrough pain, as well as Ibuprofen 800mg TID scheduled (w/food) Reports pain is under control and she feels she can walk better. She had gone to the ER and we did 2 hours but then left and went home and after taking ibuprofen she felt the hip pain subsided. Reports she is also using the bathroom more regularly and not vomiting either. Plan is for radiation simulation at [facility] today at 1:00 p.m.. She confirms that she does have transportation to get there today. Is continuing to smoke, wishes she could cut down, but she is unsure what to do to cut down. Currently smoking 1/2 pack per day. Previously tried Chantix. ROS: See HPI. All others negative. SHx: No changes FHx: No changes Past Medical History: Diagnosis Date ADHD (attention deficit hyperactivity disorder) Bipolar 1 disorder (HCC) Endometrial cancer (HCC) 2014 Interstitial cystitis 01/07/2023 Lumbar degenerative disc disease 01/07/2023 Lupus (HCC) Pancytopenia due to chemotherapy (HCC) 01/07/2023 Polycystic disease, ovaries Primary adenocarcinoma of upper lobe of right lung (HCC) 10/07/2022 Pseudocholinesterase deficiency Pulmonary embolism on right (HCC) 01/07/2023 S/P percutaneous endoscopic gastrostomy (PEG) tube placement (HCC) 05/04/2023 Smoker Examination: No vital signs as visit completed via telemedicine. Constitutional: no acute distress, chronically ill HENT: normocephalic, atraumatic. Eyes: anicteric, sclera and conjunctiva normal. Neck: no stridor Chest: normal respiratory effort Abdominal: nondistended Extremities: no edema Data Review: External notes reviewed: ER notes reviewed ASSESSMENT/PLAN: Ritchie Lowe is a 43 year old female seen in follow-up for goals of care and pain and symptom management. 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 - Plan is for radiation , I confirmed she has transportation to get her simulation appointment, I am hopeful this can help with her hip pain - she is interested in getting a 2nd opinion at [facility], advised her that this is mostly patient initiated and she can discuss this with Oncology as well - she also plans to call them today to discuss setting up a visit with her new oncologist given Dr Phillip has left Cancer-related pain - continue fentanyl 50 mcg per hour patch, refill not due until next week - continue Dilaudid for mg q.4 hours p.r.n., refill sent in today - continue ibuprofen 800 mg three times daily, we will send in refill - Advised to safely dispose of other medications especially narcotics Opioid induced constipation - continue Senokot 4. Generalized weakness - Interested in home health, will place referral - She says some of her friends work for agencies, she will call around and get us the name of which she wants us to refer to Follow up in 1 mo Becky Dial MD Palliative Medicine Physician [facility] Office: [phone] 06/30/2023 documented in this encounter Plan of Treatment Upcoming Encounters Date Type Department Care Team (Late st Contact Info) Description 07/20/2023 11:00 AM EST Telemedicine [facility], [place] [address] [place] [address] Estelle Davis PA-C [address] [place] [address] Nenita Cantu, [facility] [address] [place] [address] 07/28/2023 10:30 AM EST Telemedicine Palliative Medicine, [facility] [address] [facility] 5th [place] [address] Becky Dial MD [address] [place] [address] 11/02/2023 12:00 PM EDT Office Visit Family Practice [facility] [address] [facility] [place] [address] Josue Blake MD [address] [place] [address] Scheduled Referrals Name Type Priority Associated Diagnoses Orde r Schedule HOME HEALTH REFERRAL OP Referral Within 10 days (routine) Cancer related pain Primary adenocarcinoma of upper lobe of right lung (HCC) Ordered: 06/30/2023 Health Maintenance Due Date Last Done Comments [...] this encounter Medical Devices Implanted Type Area Staff Physical Therapist Device Identifier Shelf Expiration Date Model / Serial / Lot Desara One Single Incision Sling System Implanted:Qty: 1 on 07/11/2022 by Derek Monzon MD at OR [facility] [employer] 10/17/2023 [id number] / / [id number] Port Implant W/8f Poly Cath - [id number] Implanted:Qty: 1 on 10/27/2022 at [facility] CR BARD : PERIPHERAL VASCULAR [id number] 10/27/2023 [id number] / / [id number] Clip Padlock Pro Select - [id number] Implanted:Qty: 1 on 05/13/2023 by Destin Zhong MD at OR [facility] [id number] 03/05/2026 [id number] / / [id number] documented as of this encounter Visit Diagnoses Diagnosis Cancer related pain- Primary Neoplasm related pain (acute) (chronic) Constipation due to pain medication Other constipation Tobacco use disorder 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 No Code Status History Code Status Date Activated Date Inactivated Comments Full Code 07/11/2022 8:35 AM 07/11/2022 3:33 PM This order reflects the patients wishes and were consensually agreed upon. Question Answer Comments Discussion of Advance Directives occurred with: Patient Does the patient have a Living Will? No Does the patient have Health Care Power of [employer]? No Care Teams Med Care Manager Relationship Specialty Start Date End Date Josue Blake MD [address] [place] [address] PCP - General Family Medicine 02/06/22 documented as of this encounter
[2023-07-05] MEDS ORDERED: HYDROmorphone INJ 1 MG/ML SYRINGE IV STA ×2 (06:33→07:54)
--- NOTE | 2023-07-05 06:38 | Emergency Department Note ---
Impression & Plan Cancer related pain, Rhinovirus infection, Metastatic adenocarcinoma, Hypomagnesemia ED Provider Note Name: FANNIE GUTIERREZ Age: 43 Sex: Female Arrives Via: Ambulance Informant: Patient ED Provider: Derek Drummond MD Chief Complaint: Pain Impression: As per impressions above Medical Decision Makin-year-old female known to me from previous visits arrives for evaluation of worsening pain. Patient with metastatic cancer on high doses of narcotics for recurrent breakthrough pain issues. Today though patient also with fevers chills cough congestion runny nose. She is tachycardic on arrival. She is having some mild chills/rigors on arrival that she had labs for septic workup initiated. Was given 1 L normal saline along with some IV narcotic. She received 1 mg IV Dilaudid twice with some improvement in her pain. Laboratory workup fortunately does not really show any obvious signs of sepsis but she is positive for rhinovirus. I do not feel she has severe sepsis or septic shock and she does not require IV antibiotics at this time. Magnesium is bit low thus we will start to replete that with 1 g IV mag. Consulted hospitalist for further management as I do not feel that patient's going to be able to tolerate discharge. Triage/Nursing Notes reviewed by Me Differential:Infection, dehydration, metabolic abnormality, hypo/hyperglycemia, electrolyte disturbance, anemia, hypoxia, cardiac sources, intracerebral event, toxicologic, neurologic, as well as other pathologies. Vital Signs: reviewed and remarkable for tachy Interventions: Dilaudid 1 mg IV x 2, normal saline 1 L IV, magnesium 1 g IV Labs:ED labs Reviewed by me and remarkable for low magnesium Imagin view chest x-ray as per my interpretation no infiltrate or effusion or pneumothorax appreciated. EKG:As per my interpretation. Indication tachycardia. Sinus tachycardia at 111 bpm and a QTc of 443. There is no ectopy nor ischemia. When compared to EKG of June 19, 2023 there is really no significant change. Cardiac/Tele Monitoring: Cardiac Monitoring: An Order was placed for continuous cardiac monitoring. The monitor shows a rate of 110 with a sinus tach rhythm. Consults:Gloria hospitalist Plan: Disposition:Hospitalization. Condition: Good History of Present Illness: 43-year-old female arrives for evaluation of illness. Patient states that she has had chills fatigue body aches cough congestion over the last few days. Rapidly worsening over the last 24 hours. This has exacerbated her cancer related pain and she is having joint pains all over primarily back where she usually gets her pain. Admits that she had an argument with her last night which seems to have made things worse. States she feels quite ill at the moment. No nausea or vomiting. Denies any abdominal pain, chest pain, shortness of breath, syncope. Using p.o. Dilaudid and fentanyl patches at home without improvement. Patient currently is on Keytruda no other chemo medications recently. Past Medical History:See Below Home Medications:See Below Allergies:See Below Vitals:Blood Pressure: 122/87, Pulse 122, RR 22, T 36.6C, O2 90% on RA Physical Exam: GENERAL: Patient is unwell appearing and in mild distress. Dehydrated appearing, actively having chills/rigors RESPIRATORY: Junky crackles throughout with mild dyspnea noted CARDIOVASCULAR: Tachy.No murmur appreciated. GASTROINTESTINAL: Abdomen soft, non-tender, no peritonitis. EXTREMITIES: Normal motion all extremities, no cyanosis, no edema. NEUROLOGIC: Alert and oriented. No focal neurologic deficits appreciated SKIN: No rash, no jaundice, no diaphoresis. Bruising ac's PSYCH: Appropriate GCS: 15 ED Course: Times/Reassessments: Significantly improved with IV pain medications and fluids. Heart rate has come down nicely. Patient does not appear septic. She is able to answer all questions she is not complaining of any headache. Neuro intact Derek Drummond MD Past Med/Surg History Medical History Pneumonia Fever Chest fullness Dysphasia Pneumonia Chest pain Community acquired pneumonia Chronic low back pain Chronic cough Pseudocholinesterase deficiency Encounter for pre-operative examination Pancytopenia Primary adenocarcinoma of upper lobe of right lung (10/03/22) Endometriosis of the uterus, unspecified Asthma ADHD Tobacco abuse Systemic lupus erythematosus Surgical History H/O right wrist surgery H/O: hysterectomy History of cholecystectomy Hx of appendectomy H/O tubal ligation S/P bronchoscopy Family History Mother Cancer Breast Grandmother (Maternal) Cancer Lung Social History Smoking Status: Current every day smoker Tobacco Type: Cigarettes Cigarettes Per Day: 1 ppd; Second Hand Exposure: Yes; Do You Dip or Chew Tobacco: No; Hx Alcohol Use: No Hx Substance Use: No Preferred Language: Russian Communication Ability: Effective Visual Impairment: No Limitations Hearing Ability: Normal [employer] Required: No Beliefs That Will Affect Care: None marital status: Single Current Living Situation: Spouse Current Living Situation Comment: engaged current occupational status: unemployed 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 Feels Safe at Home: No Is there a partner from a previous relationship who is making you feel unsafe now?: No and Hesitant to Answer Diet: regular during the past year weight has: remained stable Assistive Devices: Bedside Commode, Oxygen - at Night, Walker and Wheelchair Allergies Allergies Allergy/AdvReac Type Severity Reaction Status Date / Time levofloxacin [From Levaquin] Allergy Severe THROAT Verified 07/02/23 10:50 SWELLS SHUT, ITCHY--RASH PER [facility] Penicillins Allergy Severe Anaphylaxis Verified 07/02/23 10:50 clindamycin Allergy Intermediate CAUSED A Verified 07/02/23 10:50 YEAST INFECTION X 6 MONTHS povidone-iodine Allergy Intermediate Rash Verified 07/02/23 10:50 [From Betadine] silver Allergy Intermediate Rash Verified 07/02/23 10:50 [From Tegaderm AG Mesh] bupropion [From Wellbutrin] AdvReac Severe suicidal Verified 07/02/23 10:50 ideation duloxetine AdvReac Severe suicidal Verified 07/02/23 10:50 ideations sulfamethoxazole AdvReac Mild YEAST Verified 07/02/23 10:50 [From Bactrim] INFECTION trimethoprim [From Bactrim] AdvReac Mild YEAST Verified 07/02/23 10:50 INFECTION ANESTHESIA AdvReac Severe PER Uncoded 07/02/23 10:50 [facility]--PSEUDOCHLOINESTERASE---FLAT LINES PLASTIC AdvReac Severe SKIN PEELS Uncoded 07/02/23 10:50 Home Meds Home Medications Medication Instructions Recorded Confirmed albuterol sulfate 90 mcg/actuation 2 puff inhalation Q4H PRN 03/28/23 07/05/23 aerosol inhaler (Ventolin HFA) Shortness Of Breath Or Wheezing chlorpromazine 25 mg tablet 25 mg PO QID PRN Hiccups 03/28/23 07/05/23 cyanocobalamin (vitamin B-12) 1,000 mcg IM MONTHLY 03/28/23 07/05/23 1,000 mcg/mL injection solution fluticasone propionate 230 2 puff inhalation BID 03/28/23 07/05/23 mcg-salmeterol 21 mcg/actuation HFA inhaler (Advair HFA) folic acid 1 mg tablet 1 mg PO DAILY 03/28/23 07/05/23 lorazepam 0.5 mg tablet 0.5 mg PO TID PRN Anxiety 03/28/23 07/05/23 ondansetron HCl 8 mg tablet 8 mg PO TID PRN Nausea And Vomiting 03/28/23 07/05/23 umeclidinium 62.5 mcg/actuation 1 inh inhalation DAILY 03/28/23 07/05/23 blister powder for inhalation (Incruse Ellipta) Magic Mouthwash 300 mL mouthwash 10 ml mucous membrane ACHS PRN 05/28/23 07/05/23 dysphagiea potassium chloride 20 mEq 20 meq PO QAM 06/19/23 07/05/23 tablet,extended release(part/cryst) fentanyl 50 mcg/hr transdermal 1 patch transdermal Q72H 07/02/23 07/05/23 patch hydromorphone 4 mg tablet 4 mg PO Q4H PRN Breakthrough Pain 07/02/23 07/05/23 pantoprazole 40 mg tablet,delayed 40 mg PO BID 07/02/23 07/05/23 release Results & Data (ED) Vital Signs Vital Signs - 24 hr 07/05/23 05:51 07/05/23 05:51 07/05/23 07:35 Temperature 36.6 C Temperature Source Oral Pulse Rate 122 H 126 H Pulse Rate [Apical] 111 H Respiratory Rate 16 20 Respiratory Effort / Characteristics Non-Labored Spontaneous Non-Labored Respiratory Depth Normal Normal Respiratory Pattern Regular Blood Pressure 122/87 Blood Pressure [Right Arm] 117/86 Blood Pressure Mean 98 Blood Pressure Mean [Right Arm] 96 Pulse Oximetry 96 99 Oxygen Delivery Method Room Air Room Air Oxygen Flow Rate Sepsis Recent Fever Within 48 Hours No Sepsis New/Unexplained Change in Mental Status No Sepsis Action Taken by Nursing No Action Required 07/05/23 07:35 07/05/23 08:32 07/05/23 09:51 Temperature Temperature Source Pulse Rate 92 H Pulse Rate [Apical] 100 H Respiratory Rate 20 Respiratory Effort / Characteristics Non-Labored Respiratory Depth Normal Respiratory Pattern Blood Pressure Blood Pressure [Right Arm] 105/69 Blood Pressure Mean Blood Pressure Mean [Right Arm] 81 Pulse Oximetry 99 98 Oxygen Delivery Method Room Air Nasal Cannula Oxygen Flow Rate 2 Sepsis Recent Fever Within 48 Hours Sepsis New/Unexplained Change in Mental Status Sepsis Action Taken by Nursing Laboratory Data 07/05/23 07:10 07/05/23 07:10 Lab Results 07/05/23 Range/Units 07:10 WBC 6.88 (4.8-10.8) K/ul RBC 3.44 L (4.20-5.40) M/uL Hgb 10.7 L (12.0-16.0) g/dl Hct 32.0 L (37.0-47.0) % MCV 93.0 (80.0-100.0) fL MCH 31.1 (25.0-34.0) pg MCHC 33.4 (32.0-36.0) g/dL RDW Std Deviation 50.4 H (36.4-46.3) fL RDW Coeff of Saritha 14.8 H (11.5-14.5) % Plt Count 189 (130-400) K/uL MPV 9.7 (9.4-12.4) fL Immature Gran % (Auto) 0.4 % Neut % (Auto) 80.3 % Lymph % (Auto) 11.6 % [place] % (Auto) 6.0 % Eos % (Auto) 1.6 % Baso % (Auto) 0.1 % Neut # (Auto) 5.52 (1.40-6.50) K/uL Lymph # (Auto) 0.80 L (1.20-3.40) K/uL [place] # (Auto) 0.41 (0.11-0.59) K/uL Eos # (Auto) 0.11 (0.00-0.50) K/uL Baso # (Auto) 0.01 (0.00-0.20) K/uL Immature Gran # (Auto) 0.03 (0.01-0.20) K/uL Sodium 139 (136-145) mmol/L Potassium 3.4 L (3.5-5.1) mmol/L Chloride 107 (98-107) mmol/L Carbon Dioxide 23 (21-32) mmol/L Anion Gap 9 (3-11) BUN 14 (6-23) mg/dl Creatinine 1.09 (0.6-1.2) mg/dl Est Cr Clr Drug Dosing 67.4 ml/min Est GFR ( Amer) 71.0 ml/min Est GFR (Non-Af Amer) 61.3 ml/min BUN/Creatinine Ratio 12.8 (10-20) Glucose 90 (70-99(Fasting)) mg/dl Lactate 0.5 (0.4-2.0) mmol/L Calcium 8.9 (8.6-10.3) mg/dl Magnesium 1.5 L (1.7-2.4) mg/dl Total Bilirubin 0.3 (0.2-1.0) mg/dl Direct Bilirubin 0.0 (0-0.2) mg/dl AST 8 L (13-39) U/L ALT 6 L (7-52) U/L Alkaline Phosphatase 89 (34-104) U/L Troponin I High Sens 4.2 (0-14) pg/ml Total Protein 5.8 L (6.0-8.3) gm/dl Albumin 2.9 L (3.4-5.0) gm/dl Procalcitonin 0.24 (0-0.5) ng/ml Adenovirus (PCR) Not Detected (NotDetected) B. pertussis DNA (PCR) Not Detected (NotDetected) B.parapertussis DNA PCR Not Detected (NotDetected) C. pneumoniae DNA (PCR) Not Detected (NotDetected) Coronavirus OC43 (PCR) Not Detected (NotDetected) Coronavirus HKU1 (PCR) Not Detected (NotDetected) Coronavirus 229E (PCR) Not Detected (NotDetected) SARS-CoV-2 (PCR) Not Detected (NotDetected) Coronavirus NL63 (PCR) Not Detected (NotDetected) Human Metapneumovir PCR Not Detected (NotDetected) Influenza Type A (PCR) Not Detected (NotDetected) Influenza Type B (PCR) Not Detected (NotDetected) M. pneumoniae (PCR) Not Detected (NotDetected) Parainfluenza 1 (PCR) Not Detected (NotDetected) Parainfluenza 2 (PCR) Not Detected (NotDetected) Parainfluenza 3 (PCR) Not Detected (NotDetected) Parainfluenza 4 (PCR) Not Detected (NotDetected) RSV (PCR) Not Detected (NotDetected) Entero/Rhino (PCR) DETECTED A* (NotDetected) Administered Medications Discontinued Medications Hydromorphone HCl (Hydromorphone Inj 1 Mg/Ml Syringe) 1 mg IV NOW STA Stop: 07/05/23 06:34 Last Admin: 07/05/23 06:58 Dose: 1 mg Documented By: LAURA Hydromorphone HCl (Hydromorphone Inj 1 Mg/Ml Syringe) 1 mg IV NOW STA Stop: 07/05/23 07:55 Last Admin: 07/05/23 08:35 Dose: 1 mg Documented By: FARIBA Sodium Chloride (Nss) 1,000 mls @ 999 mls/hr IV .Q1H1M MATI Stop: 07/05/23 07:45 Last Infusion: 07/05/23 08:38 Dose: Infused Documented By: Admin: 07/05/23 06:58 Dose: 999 mls/hr Documented By: LAURA Magnesium Sulfate/Dextrose (Magnesium Sulfate / D5w) 1 gm in 100 mls @ 100 mls/hr IV NOW STA Stop: 07/05/23 08:53 Last Infusion: 07/05/23 09:41 Dose: Infused Documented By: Admin: 07/05/23 08:35 Dose: 100 mls/hr Documented By: FARIBA Potassium Chloride (Potassium Chloride Crtab 20 Meq Tabcr) 40 meq PO NOW STA Stop: 07/05/23 08:35 Last Admin: 07/05/23 10:16 Dose: 40 meq Documented By: FARIBA Imaging Data Radiologist's Impression: Chest X-Ray 07/05/23 06:34 XR chest 1V portable HISTORY: Sepsis COMPARISON: Chest 06/19/2023. FINDINGS: No pneumothorax. No pleural effusions. The heart remains mildly enlarged. A right jugular Port-A-Cath terminates at the SVC. Right lung nodules are again noted. Right lung linear densities persist and favor subsegmental atelectasis or scarring. Right greater than left interstitial thickening is also unchanged. This may be chronic. No new focal lung consolidations to suggest a pneumonia. No evidence for pulmonary edema. IMPRESSION: No significant change compared to the prior study. No acute process. Right lung nodules and cardiomegaly persist. ACT 112: Negative or not required by law. Electronically signed by: Kofi Tafoya M.D. 07/05/2023 7:51 AM Discharge Plan Visit Data Chief Complaint: Pain (Generalized) Stated Complaint: PAIN AND ANXIETY ED Provider: Derek Drummond Discharge Problem: Cancer related pain, Rhinovirus infection, Metastatic adenocarcinoma, Hypomagnesemia Discharge Instructions Interventions: ED Discharge Assessment Last Done: 07/05/23 12:55
[2023-07-05] MEDS ORDERED: SODIUM CHLORIDE 0.9% 1,000 ML IV SCH (06:45)
[2023-07-05 07:41] LABS: Basophils # (auto) 0.01 K/uL (0.00-0.20); Basophils % (auto) 0.1 %; Eosinophils # (auto) 0.11 K/uL (0.00-0.50); Eosinophils % (auto) 1.6 %; Hemoglobin 10.7 g/dl (12.0-16.0); Immature Granulocytes # (auto) 0.03 K/uL (0.01-0.20); Immature Granulocytes % (auto) 0.4 %; Lymphocytes % (auto) 11.6 %; Mean Corpuscular Hemoglobin 31.1 pg (25.0-34.0); Mean Corpuscular Hgb Conc 33.4 g/dL (32.0-36.0); Mean Platelet Volume 9.7 fL (9.4-12.4); Monocytes # (auto) 0.41 K/uL (0.11-0.59); Neutrophils # (auto) 5.52 K/uL (1.40-6.50); Neutrophils % (auto) 80.3 %; Platelet Count 189 K/uL (130-400); RDW Coefficient of Variation 14.8 % (11.5-14.5); RDW Standard Deviation 50.4 fL (36.4-46.3); Red Blood Count 3.44 M/uL (4.20-5.40); White Blood Count 6.88 K/ul (4.8-10.8)
[2023-07-05 07:52] LABS: Albumin Level 2.9 gm/dl (3.4-5.0); BUN Creatinine Ratio 12.8 (10-20); Bilirubin,Total 0.3 mg/dl (0.2-1.0); Calcium 8.9 mg/dl (8.6-10.3); Creatinine Clr Calc Pharmacy 67.4 ml/min; Est GFR (Non-African American) 61.3 ml/min; Magnesium 1.5 mg/dl (1.7-2.4); Potassium 3.4 mmol/L (3.5-5.1); Total Protein 5.8 gm/dl (6.0-8.3)
[2023-07-05] MEDS ORDERED: MAGNESIUM SULFATE / D5W 1 GM/100 ML BAG IV STA (07:54)
--- NOTE | 2023-07-05 07:54 | XRay Report ---
XR chest 1V portable HISTORY: Sepsis COMPARISON: Chest 06/19/2023. FINDINGS: No pneumothorax. No pleural effusions. The heart remains mildly enlarged. A right jugular P ort-A-Cath terminates at the SVC. Right lung nodules are again noted. Right lung linear densities per sist and favor subsegmental atelectasis or scarring. Right greater than left interstitial thickening is also unchanged. This may be chronic. No new focal lung consolidations to suggest a pneumonia. No e vidence for pulmonary edema. IMPRESSION: No significant change compared to the prior study. No acute process. Right lung nodules and cardiomeg francois persist. ACT 112: Negative or not required by law. Electronically signed by: Kofi Tafoya M.D. 07/05/2023 7:51 AM
[2023-07-05 07:59] LABS: Troponin I High Sensitivity 4.2 pg/ml (0-14)
[2023-07-05 08:20] LABS: Adenovirus PCR Not Detected (NotDetected); Bordetella parapertussis PCR Not Detected (NotDetected); Bordetella pertussis PCR Not Detected (NotDetected); Chlamydia pneumoniae PCR Not Detected (NotDetected); Coronavirus 229E PCR Not Detected (NotDetected); Coronavirus CoV-2 (COVID19)PCR Not Detected (NotDetected); Coronavirus HKU1 PCR Not Detected (NotDetected); Coronavirus NL63 PCR Not Detected (NotDetected); Coronavirus OC43PCR Not Detected (NotDetected); Human Metapneumovirus PCR Not Detected (NotDetected); Influenza A PCR Not Detected (NotDetected); Influenza B PCR Not Detected (NotDetected); Mycoplasma pneumoniae PCR Not Detected (NotDetected); Parainfluenza Virus 1 PCR Not Detected (NotDetected); Parainfluenza Virus 2 PCR Not Detected (NotDetected); Parainfluenza Virus 3 PCR Not Detected (NotDetected); Parainfluenza Virus 4 PCR Not Detected (NotDetected); Respiratory Syncytial VirusPCR Not Detected (NotDetected)
[2023-07-05 08:32] LABS: Rhinovirus/Enterovirus PCR DETECTED (NotDetected)
[2023-07-05] MEDS ORDERED: POTASSIUM CHLORIDE CRTAB 20 MEQ TABCR PO STA (08:34)
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
[2023-07-05] MEDS ORDERED: CYANOCOBALAMIN 1000 MCG/ML VIAL IM SCH (12:54)
[2023-07-05] MEDS ORDERED: ALBUTEROL HFA 8 GM INHALER INH PRN (12:54)
[2023-07-05] MEDS ORDERED: fentaNYL 50 MCG/HR TDSY TD SCH (12:54)
[2023-07-05] MEDS ORDERED: chlorproMAZINE HCL 25 MG TAB PO PRN (12:54)
[2023-07-05] MEDS ORDERED: LORazepam 0.5 MG TAB PO PRN (12:54)
[2023-07-05] MEDS ORDERED: HYDROMORPHONE 4 MG PO PRN (12:54)
[2023-07-05] MEDS ORDERED: POLYETHYLENE (MIRALAX) 17 GM PACK PO PRN (12:54)
[2023-07-05] MEDS ORDERED: ONDANSETRON 4 MG OD TAB PO PRN (12:54)
[2023-07-05] MEDS ORDERED: HYDROmorphone HCL 2 MG TAB PO PRN (13:01)
[2023-07-05] MEDS ORDERED: HEPARIN 100 UNIT/ML 5ML FLUSH ONE (13:05)
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
--- NOTE | 2023-07-05 13:47 | Communication Note ---
Date of Service: July 05, 2023 By CMS guidelines, a determination that the admission or continued stay is not medically necessary has been made by a member of the UR committee/physician and a physician for this hospital stay, therefore a Code 44 will be completed and the Inpatient admission will be changed to outpatient.
[2023-07-05] MEDS ORDERED: ENOXAPARIN INJ 40 MG/0.4 ML SYR SQ SCH (14:00)
[2023-07-05] MEDS ORDERED: IBUPROFEN 800 MG TAB PO SCH (14:00)
[2023-07-05] MEDS ORDERED: CHECK fentaNYL PATCH PLACEMENT SCH (16:00)
[2023-07-05] MEDS ORDERED: DOCUSATE SODIUM/SENNA 50/8.6MG TAB PO SCH (21:00)
[2023-07-05] MEDS ORDERED: PANTOprazole 40 MG TAB PO SCH (21:00)
[2023-07-05] MEDS ORDERED: SPIRONOLACTONE 100 MG TAB PO SCH (21:00)
--- NOTE | 2023-07-05 21:11 | Electrocardiogram Report ---
Test Reason : Blood Pressure : / mmHG Vent. Rate : 111 BPM Atrial Rate : 111 BPM P-R Int : 136 ms QRS Dur : 094 ms QT Int : 326 ms P-R-T Axes : 055 011 035 degrees QTc Int : 443 ms Sinus tachycardia Nonspecific T wave abnormality When compared with ECG of 19-JUN-2023 13:21, Premature ventricular complexes are no longer Present Nonspecific T wave abnormality now evident in Anterior leads Confirmed by Juaquin Maria ([id number]) on 07/05/2023 9:11:05 PM Referred By: REFERRED SELF Confirmed By:Juaquin Maria
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
[2023-07-06] MEDS ORDERED: FOLIC ACID 1 MG TAB PO SCH (09:00)
[2023-07-06] MEDS ORDERED: UMECLIDINIUM BROMIDE 62.5MCG/BLISTER 7 PUFFS/INHALER INH SCH (09:00)
[2023-07-06] MEDS ORDERED: FLUTICASONE/VILANTEROL 200/25MCG 14 PUFFS/INHALER INH SCH (09:00)
--- NOTE | 2023-07-07 15:27 | Communication Note ---
Date of Service: July 07, 2023 By CMS guidelines, a determination that the admission or continued stay is not medically necessary has been made by a member of the UR committee and a phy sician for this hospital stay, therefore a Code 44 will be completed and the Inpatient admission will be changed to outpatient. MD Savi
== END 2023-07-05 14:25 | disposition home or self-care (01) | DRG 948 ==
LOC: ED 05:25 → INTOOBSV 09:55 → EDINP 09:55

== ENCOUNTER 2023-07-08 16:21 | Observation (INO) ==
[2023-07-08] MEDS ORDERED: PROMETHAZINE 25 MG/51 ML BAG IV STA (16:35)
--- NOTE | 2023-07-08 16:35 | ED Triage Note ---
Date of Service July 08, 2023 Provider in Triage Author: Raymundo Riley History of Present Illness This patient was briefly evaluated while in triage. An abbreviated physical exam was performed. This patient is a 43-year-old Female who presents to the ED for evaluation hx of metastatic cancer here with vomiting-green/foamy, chills started this morning has Zofran, Compazine and Phenergan at home-is vomiting them up cannot keep her pain medications down had radiation treatment today Physical Exam GENERAL: NAD, chronically ill appearing, hypotensive, tachycardic CARDIOVASCULAR: tachycardic RESPIRATORY: CTA ABDOMEN: BS x 4. Diffusely TTP. Initial orders for labs and / or imaging were placed and patient was placed in the waiting area until a bed is available. Please see further documentation for the full ED course.
[2023-07-08] MEDS ORDERED: SODIUM CHLORIDE 0.9% 1,000 ML IV SCH (16:36)
--- NOTE | 2023-07-08 17:13 | XRay Report ---
CHEST AND ABDOMEN 2 VIEWS HISTORY: Nausea. Vomiting. Constipation. COMPARISON: Chest 07/05/2023. Abdomen and pelvis CT 06/03/2023. FINDINGS: A right jugular Port-A-Cath terminates in the SVC. No pneumothorax. No pleural effusions. T he heart remains mildly enlarged. Bilateral pulmonary nodules again noted consistent with metastatic disease. Chronic interstitial thickening persists. No evidence for pulmonary edema. Prior cholecystec su. Nonobstructive bowel gas pattern. No renal calculi. Closure device noted within the stomach, un changed. No acute fractures identified. The liver and spleen remain enlarged. [id number] fecal retention is noted. IMPRESSION: 1. No change compared to the prior studies. 2. Bilateral pulmonary nodules consistent with metastatic disease. 3. Nonobstructive bowel gas pattern. 4. Persistent hepatosplenomegaly. ACT 112: Negative or not required by law. Electronically signed by: Kofi Tafoya M.D. 07/08/2023 5:12 PM
[2023-07-08] MEDS ORDERED: SODIUM CHLORIDE 0.9% 1,000 ML IV ONE (18:24)
[2023-07-08] MEDS ORDERED: MoRPHine SULFATE 10 MG/ML CARP/VIAL IV STA (18:25)
--- NOTE | 2023-07-08 18:26 | Emergency Department Note ---
Impression & Plan Abdominal pain, Primary adenocarcinoma of upper lobe of right lung, Vomiting ED Provider Note NAME: FANNIE GUTIERREZ AGE: 43 SEX: F : 1980 ARRIVES VIA: Walk-In INFORMANT: Patient ED PROVIDER(S): Tenzin Marsh DO CHIEF COMPLAINT: abdominal pain HPI: Patient is a 43-year-old female with metastatic non-small cell lung cancer who presents to the ER for nausea, vomiting which started earlier today. Following the nausea vomiting she did still get radiation. Nausea, and vomiting has continued. She has lower abdominal and diffuse abdominal pain which is slightly worse than usual. She denies any headache or change in vision. No chest pain or shortness of breath but does admit to a slightly more productive cough than usual. No dysuria, urgency, or frequency. No other exacerbating or remitting factors. ADDITIONAL HISTORY OBTAINED: Per HPI Chronic Medical/Social Conditions Affecting Care: Per HPI PAST MEDICAL HISTORY:See Below PAST SURGICAL HISTORY:See Below FAMILY HISTORY:See Below SOCIAL HISTORY:See Below HOME MEDICATIONS:See Below ALLERGIES:See Below VITALS:See Below PHYSICAL EXAMINATION: GENERAL: Sitting up in bed, alert, chronically ill-appearing, disheveled EYE EXAM: normal conjunctiva. OROPHARYNX:mucous membranes are dry NECK: supple, no nuchal rigidity, no adenopathy, non-tender LUNGS: Clear to auscultation. Normal chest wall mechanics HEART: no murmurs, S1 normal and S2 normal ABDOMEN: abdomen soft, non-tender, normo-active bowel sounds, no masses, no rebound or guarding. UPPER EXTREMITIES: upper extremities are grossly normal. LOWER EXTREMITIES: No pitting edema. NEURO EXAM: Normal sensorium, cranial nerves II-XII grossly intact, normal speech, no gross weakness of arms, no gross weakness of legs. MEDICAL DECISION MAKING: Patient is a 43-year-old female who presents ER for above-stated complaint. IV was established blood work was obtained. Labs show no significant leukocytosis and a mild anemia. BMP with mild hypokalemia at 3.3. LFTs was unremarkable. Mag slightly low at 1.4. Lipase was normal. 30 UA was contaminated. Viral panel was positive for rhinovirus. She was having significant pain and she cannot keep her down her Dilaudid. She was given IV fluids Zofran and Phenergan. Vomiting did improve. She given IV morphine and Dilaudid. She was updated bedside. CT abdomen pelvis showed progression of the metastatic disease. Case was discussed with Dr. Starks for further evaluation management treatment. Consults/Care Managements Discussions: Per MDM Triage Nursing notes reviewed. Limited review of prior medical records performed Vital Signs: reviewed and remarkable for no significant abnormalities Differential diagnosis: Differential diagnoses includes but is not limited to gastritis, peptic ulcer disease, GERD, gallbladder disease, pancreatitis, small bowel obstruction, appendicitis, diverticulitis, hernia, urinary tract infection, torsion, perforation, trauma, infectious. ER treatment provided: See below Diagnostics interpreted by me include EKG and cardiac monitoring as listed below: -Cardiac Monitoring: An order was placed for continuous cardiac monitoring. The monitor shows a rate of 101 with sinus rhythm. -ECG: none -Laboratory studies:Interpreted by me as stated above in MDM and shown below. Imaging studies: Xrays: As interpreted by me:none CTs show: CT abdomen pelvis per my preliminary interpretation showed no bowel obstruction CT abdomen pelvis per radiology as described above Procedures:none Critical Care: None Past Med/Surg History Medical History Pneumonia Fever Chest fullness Dysphasia Pneumonia Chest pain Community acquired pneumonia Chronic low back pain Chronic cough Pseudocholinesterase deficiency Encounter for pre-operative examination Pancytopenia Primary adenocarcinoma of upper lobe of right lung (10/03/22) Endometriosis of the uterus, unspecified Asthma ADHD Tobacco abuse Systemic lupus erythematosus Surgical History H/O right wrist surgery H/O: hysterectomy History of cholecystectomy Hx of appendectomy H/O tubal ligation S/P bronchoscopy Family History Mother Cancer Breast Grandmother (Maternal) Cancer Lung Social History Smoking Status: Unknown if ever smoked Tobacco Type: Cigarettes Cigarettes Per Day: 1 ppd; Second Hand Exposure: Yes; Do You Dip or Chew Tobacco: No; Hx Alcohol Use: No Hx Substance Use: No Preferred Language: Lebanese Communication Ability: Effective Visual Impairment: No Limitations Hearing Ability: Normal Mortgage Processing Clerk Required: No Beliefs That Will Affect Care: None marital status: Single Current Living Situation: Spouse Current Living Situation Comment: engaged current occupational status: unemployed 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 Feels Safe at Home: Yes Diet: regular during the past year weight has: remained stable Assistive Devices: Bedside Commode, Oxygen - at Night, Walker and Wheelchair Allergies Allergies Allergy/AdvReac Type Severity Reaction Status Date / Time levofloxacin [From Levaquin] Allergy Severe THROAT Verified 07/08/23 19:23 SWELLS SHUT, ITCHY--RASH PER [facility] Penicillins Allergy Severe Anaphylaxis Verified 07/08/23 19:23 clindamycin Allergy Intermediate CAUSED A Verified 07/08/23 19:23 YEAST INFECTION X 6 MONTHS povidone-iodine Allergy Intermediate Rash Verified 07/08/23 19:23 [From Betadine] silver Allergy Intermediate Rash Verified 07/08/23 19:23 [From Tegaderm AG Mesh] bupropion [From Wellbutrin] AdvReac Severe suicidal Verified 07/08/23 19:23 ideation duloxetine AdvReac Severe suicidal Verified 07/08/23 19:23 ideations sulfamethoxazole AdvReac Mild YEAST Verified 07/08/23 19:23 [From Bactrim] INFECTION trimethoprim [From Bactrim] AdvReac Mild YEAST Verified 07/08/23 19:23 INFECTION ANESTHESIA AdvReac Severe PER Uncoded 07/08/23 19:23 [facility]--PSEUDOCHLOINESTERASE---FLAT LINES PLASTIC AdvReac Severe SKIN PEELS Uncoded 07/08/23 19:23 Home Meds Home Medications Medication Instructions Recorded Confirmed albuterol sulfate 90 mcg/actuation 2 puff inhalation Q4H PRN 03/28/23 07/08/23 aerosol inhaler (Ventolin HFA) Shortness Of Breath Or Wheezing chlorpromazine 25 mg tablet 25 mg PO QID PRN Hiccups 03/28/23 07/08/23 cyanocobalamin (vitamin B-12) 1,000 mcg IM MONTHLY 03/28/23 07/08/23 1,000 mcg/mL injection solution fluticasone propionate 230 2 puff inhalation BID 03/28/23 07/08/23 mcg-salmeterol 21 mcg/actuation HFA inhaler (Advair HFA) folic acid 1 mg tablet 1 mg PO DAILY 03/28/23 07/08/23 lorazepam 0.5 mg tablet 0.5 mg PO TID PRN Anxiety 03/28/23 07/08/23 ondansetron HCl 8 mg tablet 8 mg PO TID PRN Nausea And Vomiting 03/28/23 07/08/23 umeclidinium 62.5 mcg/actuation 1 inh inhalation DAILY 03/28/23 07/08/23 blister powder for inhalation (Incruse Ellipta) Magic Mouthwash 300 mL mouthwash 10 ml mucous membrane ACHS PRN 05/28/23 07/08/23 dysphagiea potassium chloride 20 mEq 20 meq PO QAM 06/19/23 07/08/23 tablet,extended release(part/cryst) fentanyl 50 mcg/hr transdermal 1 patch transdermal Q72H 07/02/23 07/08/23 patch hydromorphone 4 mg tablet 4 mg PO Q4H PRN Breakthrough Pain 07/02/23 07/08/23 pantoprazole 40 mg tablet,delayed 40 mg PO BID 07/02/23 07/08/23 release Results & Data (ED) Vital Signs Vital Signs - 24 hr 07/08/23 16:32 07/08/23 18:27 07/08/23 18:36 Temperature 36 C L Temperature Source Temporal Artery Scan Pulse Rate 124 H 104 H Pulse Rate [Apical] Pulse Rate [Left Finger] 102 H Respiratory Rate 19 14 Respiratory Effort / Characteristics Non-Labored Spontaneous Respiratory Depth Normal Blood Pressure 99/71 L Blood Pressure [Left Arm] 144/94 H Blood Pressure Mean 80 Blood Pressure Mean [Left Arm] 110 Pulse Oximetry 91 92 Oxygen Delivery Method Room Air Room Air Oxygen Flow Rate Sepsis Recent Fever Within 48 Hours No Sepsis New/Unexplained Change in Mental Status N/A Sepsis Action Taken by Nursing No Action Required 07/08/23 20:20 07/08/23 21:11 Temperature Temperature Source Pulse Rate Pulse Rate [Apical] 102 H Pulse Rate [Left Finger] Respiratory Rate 15 Respiratory Effort / Characteristics Respiratory Depth Blood Pressure Blood Pressure [Left Arm] 133/88 Blood Pressure Mean Blood Pressure Mean [Left Arm] 103 Pulse Oximetry 88 L 95 Oxygen Delivery Method Room Air Nasal Cannula Oxygen Flow Rate 2 Sepsis Recent Fever Within 48 Hours Sepsis New/Unexplained Change in Mental Status Sepsis Action Taken by Nursing Laboratory Data 07/08/23 18:18 07/08/23 18:18 Lab Results 07/08/23 07/08/23 07/08/23 Range/Units 17:50 18:18 18:35 WBC 8.55 (4.8-10.8) K/ul RBC 3.86 L (4.20-5.40) M/uL Hgb 11.9 L (12.0-16.0) g/dl Hct 34.9 L (37.0-47.0) % MCV 90.4 (80.0-100.0) fL MCH 30.8 (25.0-34.0) pg MCHC 34.1 (32.0-36.0) g/dL RDW Std Deviation 47.5 H (36.4-46.3) fL RDW Coeff of Saritha 14.4 (11.5-14.5) % Plt Count 185 (130-400) K/uL MPV 9.7 (9.4-12.4) fL Immature Gran % (Auto) 0.5 % Neut % (Auto) 83.0 % Lymph % (Auto) 10.4 % [place] % (Auto) 4.3 % Eos % (Auto) 1.6 % Baso % (Auto) 0.2 % Neut # (Auto) 7.09 H (1.40-6.50) K/uL Lymph # (Auto) 0.89 L (1.20-3.40) K/uL [place] # (Auto) 0.37 (0.11-0.59) K/uL Eos # (Auto) 0.14 (0.00-0.50) K/uL Baso # (Auto) 0.02 (0.00-0.20) K/uL Immature Gran # (Auto) 0.04 (0.01-0.20) K/uL Sodium 137 (136-145) mmol/L Potassium 3.3 L (3.5-5.1) mmol/L Chloride 101 (98-107) mmol/L Carbon Dioxide 25 (21-32) mmol/L Anion Gap 11 (3-11) BUN 14 (6-23) mg/dl Creatinine 1.02 (0.6-1.2) mg/dl Est Cr Clr Drug Dosing Not Reportable Est GFR ( Amer) 76.9 ml/min Est GFR (Non-Af Amer) 66.4 ml/min BUN/Creatinine Ratio 13.7 (10-20) Glucose 90 (70-99(Fasting)) mg/dl Calcium 9.3 (8.6-10.3) mg/dl Magnesium 1.4 L (1.7-2.4) mg/dl Total Bilirubin 0.4 (0.2-1.0) mg/dl AST 10 L (13-39) U/L ALT 6 L (7-52) U/L Alkaline Phosphatase 102 (34-104) U/L Total Protein 6.4 (6.0-8.3) gm/dl Albumin 3.2 L (3.4-5.0) gm/dl Globulin 3.2 (2.5-4.0) gm/dl Albumin/Globulin Ratio 1.0 (0.9-2) Lipase 12 (11-82) U/L Urine Color Yellow Urine Appearance Cloudy A (Clear) Urine pH 5.5 (4.5-7.5) Ur Specific [place] 1.016 (1.000-1.030) Urine Protein 1+ H (Negative) Urine Glucose (UA) Negative (Negative) Urine Ketones Negative (Negative) Urine Blood Negative (Negative) Urine Nitrite Negative (Negative) Urine Bilirubin Negative (Negative) Urine Urobilinogen Negative (Negative) Ur Leukocyte Esterase Negative (Negative) Urine WBC (Auto) 10-30 H (0-5) /hpf Urine RBC (Auto) 0-4 (0-4) /hpf U Hyaline Cast (Auto) 10-30 H (0-5) /lpf U Epithel Cells (Auto) >30 H (0-5) /lpf Urine Bacteria (Auto) 1+ H (Negative) Ur Renal Epithelial Cell Not Reportable Adenovirus (PCR) Not Detected (NotDetected) B. pertussis DNA (PCR) Not Detected (NotDetected) B.parapertussis DNA PCR Not Detected (NotDetected) C. pneumoniae DNA (PCR) Not Detected (NotDetected) Coronavirus OC43 (PCR) Not Detected (NotDetected) Coronavirus HKU1 (PCR) Not Detected (NotDetected) Coronavirus 229E (PCR) Not Detected (NotDetected) SARS-CoV-2 (PCR) Not Detected (NotDetected) Coronavirus NL63 (PCR) Not Detected (NotDetected) Human Metapneumovir PCR Not Detected (NotDetected) Influenza Type A (PCR) Not Detected (NotDetected) Influenza Type B (PCR) Not Detected (NotDetected) M. pneumoniae (PCR) Not Detected (NotDetected) Parainfluenza 1 (PCR) Not Detected (NotDetected) Parainfluenza 2 (PCR) Not Detected (NotDetected) Parainfluenza 3 (PCR) Not Detected (NotDetected) Parainfluenza 4 (PCR) Not Detected (NotDetected) RSV (PCR) Not Detected (NotDetected) Entero/Rhino (PCR) DETECTED A* (NotDetected) Administered Medications Discontinued Medications Hydromorphone HCl (Hydromorphone Inj 1 Mg/Ml Syringe) 1 mg IV NOW STA Stop: 07/08/23 19:20 Last Admin: 07/08/23 19:22 Dose: 1 mg Documented By: FRANNY Sodium Chloride (Nss) 1,000 mls @ 999 mls/hr IV .Q1H1M MATI Stop: 07/08/23 17:36 Last Admin: 07/08/23 18:15 Dose: 999 mls/hr Documented By: Promethazine HCl (Phenergan) 25 mg in 51 mls @ 204 mls/hr IV NOW STA Stop: 07/08/23 16:49 Last Infusion: 07/08/23 18:28 Dose: Infused Documented By: Admin: 07/08/23 18:13 Dose: 204 mls/hr Documented By: Sodium Chloride (Nss) 1,000 mls @ 999 mls/hr IV .Q1H1M ONE Stop: 07/08/23 19:24 Last Admin: 07/08/23 18:33 Dose: 999 mls/hr Documented By: MAVERICK Ioversol (Optiray 320 500ml) 82 ml IV ONCE ONE Stop: 07/08/23 19:42 Last Admin: 07/08/23 19:42 Dose: 82 ml Documented By: KANWAL Morphine Sulfate (Morphine Sulfate 10 Mg/Ml Carp/Vial) 6 mg IV NOW STA Stop: 07/08/23 18:26 Last Admin: 07/08/23 18:31 Dose: Not Given Documented By: MAVERICK Morphine Sulfate (Morphine Sulfate 2 Mg/Ml Carp) Confirm Administered Dose 6 mg .ROUTE .STK-MED ONE Stop: 07/08/23 18:30 Last Admin: 07/08/23 18:32 Dose: 6 mg Documented By: MAVERICK Potassium Chloride (Potassium Chloride Pwd 20 Meq Pack) 40 meq PO NOW STA Stop: 07/08/23 21:01 Last Admin: 07/08/23 21:36 Dose: 40 meq Documented By: [employer] Imaging Data Radiologist's Impression: Chest/Abdomen X-ray 07/08/23 16:35 CHEST AND ABDOMEN 2 VIEWS HISTORY: Nausea. Vomiting. Constipation. COMPARISON: Chest 07/05/2023. Abdomen and pelvis CT 06/03/2023. FINDINGS: A right jugular Port-A-Cath terminates in the SVC. No pneumothorax. No pleural effusions. The heart remains mildly enlarged. Bilateral pulmonary nodules again noted consistent with metastatic disease. Chronic interstitial thickening persists. No evidence for pulmonary edema. Prior cholecystectomy. Nonobstructive bowel gas pattern. No renal calculi. Closure device noted within the stomach, unchanged. No acute fractures identified. The liver and spleen remain enlarged. [id number]-[id number] fecal retention is noted. IMPRESSION: 1. No change compared to the prior studies. 2. Bilateral pulmonary nodules consistent with metastatic disease. 3. Nonobstructive bowel gas pattern. 4. Persistent hepatosplenomegaly. ACT 112: Negative or not required by law. Electronically signed by: Kofi Tafoya M.D. 07/08/2023 5:12 PM Abdomen/Pelvis CT 07/08/23 18:24 Exam(s): CT ABDOMEN + PELVIS With Contrast IV Amt: 82ml EXAM: CT Abdomen and Pelvis With Intravenous Contrast CLINICAL HISTORY: Reason for exam: abd pain n/v. TECHNIQUE: Axial computed tomography images of the abdomen and pelvis with intravenous contrast. CTDI is 24.55 mGy and DLP is 1217.84 mGy-cm. Automated exposure control was utilized for the study. A dose lowering technique was utilized adhering to the principles of ALARA. CONTRAST: Patient received 82ml of IV contrast COMPARISON: No relevant prior studies available. FINDINGS: Lung bases: Enlarging bibasilar pulmonary nodules. Examples are as follows: Medial right middle lobe best seen on series 2 image 1 measuring 1.3 cm where previously measured 0.7 cm and peripheral anterior left lung base best seen on series 2 image 11 measuring 1.0 cm where previously measured 0.6 cm. No consolidation. ABDOMEN: Liver: 2.2 cm ill-defined mass within the posterior right lobe of the liver is not significantly changed. Gallbladder and bile ducts: Gallbladder has been removed. No ductal dilation. Pancreas: Unremarkable. No mass. No ductal dilation. Spleen: Unremarkable. No splenomegaly. Adrenals: Enlarging left adrenal mass measuring 3.1 cm where previously measured 2.0 cm. Enlarging right adrenal nodule now measuring 2.7 cm where previously measured 1.5 cm. Kidneys and ureters: Heterogeneous bilateral kidneys which have a similar appearance to prior exam in the anterior mid right kidney and the lower pole of the left kidney with likely ill-defined masses. No hydronephrosis. Stomach and bowel: Unremarkable. No obstruction. No mucosal thickening. PELVIS: Appendix: No findings to suggest acute appendicitis. Bladder: Unremarkable. No mass. Reproductive: Uterus has been removed. ABDOMEN and PELVIS: Intraperitoneal space: Unremarkable. No free air. No significant fluid collection. Bones/joints: Enlarging osseous metastatic lesion to the left lateral iliac wing, right iliac ala, and L3 spinous process. No acute fracture. No dislocation. Soft tissues: Anterior abdominal hernia just to the right of midline and above the umbilicus with omental fat protruding through the defect. Vasculature: Unremarkable. No abdominal aortic aneurysm. Lymph nodes: Enlarging retroperitoneal lymphadenopathy. Examples as follows: Left para-aortic now measuring 1.7 cm where previously measured 1.2 cm. IMPRESSION: 1. No evidence of acute abdominal or pelvic process. 2. Progression of metastatic disease to the lungs, adrenal glands, osseous structures, and upper abdominal lymphadenopathy. Metastatic disease to the liver and kidneys is relatively stable. Electronically signed by: Lance Charlton M.D. 07/08/23 20:33 PM Discharge Plan Visit Data Chief Complaint: Vomiting Stated Complaint: VOMITING, FOAMY, CHEST CONGESTION ED Provider: Tenzin Marsh Discharge Problem: Abdominal pain, Primary adenocarcinoma of upper lobe of right lung, Vomiting Forms Stand Alone Forms: My [facility] Prescriptions Prescriptions: No Action Magic Mouthwash 300 mL mouthwash 10 ml mucous membrane ACHS PRN (Reason: dysphagiea) pantoprazole 40 mg tablet,delayed release (DR/EC) 40 mg PO BID Patient Comments: reports has not been taking hydromorphone 4 mg tablet 4 mg PO Q4H PRN (Reason: Breakthrough Pain) fentanyl 50 mcg/hr patch 72 hour 1 patch transdermal Q72H ondansetron HCl 8 mg tablet 8 mg PO TID PRN (Reason: Nausea And Vomiting) lorazepam 0.5 mg tablet 0.5 mg PO TID PRN (Reason: Anxiety) cyanocobalamin (vitamin B-12) 1,000 mcg/mL solution 1,000 mcg IM MONTHLY chlorpromazine 25 mg tablet 25 mg PO QID PRN (Reason: Hiccups) folic acid 1 mg tablet 1 mg PO DAILY albuterol sulfate [Ventolin HFA] 90 mcg/actuation HFA aerosol inhaler 2 puff INHALATION Q4H PRN (Reason: Shortness Of Breath Or Wheezing) fluticasone propion-salmeterol [Advair HFA] 230-21 mcg/actuation HFA aerosol inhaler 2 puff INHALATION BID Incruse Ellipta 62.5 mcg/actuation blister with device 1 inh INHALATION DAILY potassium chloride 20 mEq tablet,ER particles/crystals 20 meq PO QAM Referrals Referrals: Josue Blake MD [Primary Care Provider] - Discharge Problem: Abdominal pain Qualifiers: Abdominal location: unspecified location Qualified Code(s): R10.9 - Unspecified abdominal pain Vomiting Qualifiers: Vomiting type: unspecified Nausea presence: unspecified Qualified Code(s): R 11.10 - Vomiting, unspecified
[2023-07-08] MEDS ORDERED: MoRPHine SULFATE 2 MG/ML CARP ONE (18:29)
[2023-07-08 18:44] LABS: Appearance Urine Cloudy (Clear); Bacteria Urine Automated 1+ (Negative); Bilirubin Urine Negative (Negative); Blood Urine Negative (Negative); Color Urine Yellow; Epithelial Cell Urine Auto >30 /lpf (0-5); Glucose Urine UA Negative (Negative); Ketones Urine Negative (Negative); Leukocyte Esterase Urine Negative (Negative); Nitrite Urine Negative (Negative); Protein Urine 1+ (Negative); RBC Urine Automated 0-4 /hpf (0-4); Specific Gravity Urine 1.016 (1.000-1.030); Urobilinogen Urine Negative (Negative); pH Urine 5.5 (4.5-7.5)
[2023-07-08 18:57] LABS: Basophils # (auto) 0.02 K/uL (0.00-0.20); Basophils % (auto) 0.2 %; Eosinophils # (auto) 0.14 K/uL (0.00-0.50); Eosinophils % (auto) 1.6 %; Hematocrit (blood only) 34.9 % (37.0-47.0); Hemoglobin 11.9 g/dl (12.0-16.0); Immature Granulocytes # (auto) 0.04 K/uL (0.01-0.20); Immature Granulocytes % (auto) 0.5 %; Lymphocytes # (auto) 0.89 K/uL (1.20-3.40); Lymphocytes % (auto) 10.4 %; Mean Corpuscular Hemoglobin 30.8 pg (25.0-34.0); Mean Corpuscular Hgb Conc 34.1 g/dL (32.0-36.0); Mean Corpuscular Volume 90.4 fL (80.0-100.0); Mean Platelet Volume 9.7 fL (9.4-12.4); Monocytes # (auto) 0.37 K/uL (0.11-0.59); Monocytes % (auto) 4.3 %; Neutrophils # (auto) 7.09 K/uL (1.40-6.50); Platelet Count 185 K/uL (130-400); RDW Coefficient of Variation 14.4 % (11.5-14.5); RDW Standard Deviation 47.5 fL (36.4-46.3); Red Blood Count 3.86 M/uL (4.20-5.40); White Blood Count 8.55 K/ul (4.8-10.8)
[2023-07-08 19:09] LABS: Alanine Aminotransferase 6 U/L (7-52); Albumin Level 3.2 gm/dl (3.4-5.0); Alkaline Phosphatase 102 U/L (34-104); Anion Gap 11 (3-11); Aspartate Aminotransferase 10 U/L (13-39); BUN Creatinine Ratio 13.7 (10-20); Bilirubin,Total 0.4 mg/dl (0.2-1.0); Blood Urea Nitrogen 14 mg/dl (6-23); Calcium 9.3 mg/dl (8.6-10.3); Carbon Dioxide 25 mmol/L (21-32); Chloride 101 mmol/L (98-107); Est GFR (African American) 76.9 ml/min; Est GFR (Non-African American) 66.4 ml/min; Globulin 3.2 gm/dl (2.5-4.0); Glucose 90 mg/dl (70-99(Fasting)); Lipase 12 U/L (11-82); Potassium 3.3 mmol/L (3.5-5.1); Sodium 137 mmol/L (136-145); Total Protein 6.4 gm/dl (6.0-8.3)
[2023-07-08] MEDS ORDERED: HYDROmorphone INJ 1 MG/ML SYRINGE IV STA (19:19)
[2023-07-08] MEDS ORDERED: OPTIRAY 320 500ml IV ONE (19:41)
[2023-07-08 19:58] LABS: Adenovirus PCR Not Detected (NotDetected); Bordetella parapertussis PCR Not Detected (NotDetected); Bordetella pertussis PCR Not Detected (NotDetected); Chlamydia pneumoniae PCR Not Detected (NotDetected); Coronavirus 229E PCR Not Detected (NotDetected); Coronavirus CoV-2 (COVID19)PCR Not Detected (NotDetected); Coronavirus HKU1 PCR Not Detected (NotDetected); Coronavirus NL63 PCR Not Detected (NotDetected); Coronavirus OC43PCR Not Detected (NotDetected); Human Metapneumovirus PCR Not Detected (NotDetected); Influenza A PCR Not Detected (NotDetected); Influenza B PCR Not Detected (NotDetected); Mycoplasma pneumoniae PCR Not Detected (NotDetected); Parainfluenza Virus 1 PCR Not Detected (NotDetected); Parainfluenza Virus 2 PCR Not Detected (NotDetected); Parainfluenza Virus 3 PCR Not Detected (NotDetected); Parainfluenza Virus 4 PCR Not Detected (NotDetected); Respiratory Syncytial VirusPCR Not Detected (NotDetected)
[2023-07-08 20:10] LABS: Rhinovirus/Enterovirus PCR DETECTED (NotDetected)
--- NOTE | 2023-07-08 20:34 | CT Scan Report ---
Exam(s): CT ABDOMEN + PELVIS With Contrast IV Amt: 82ml EXAM: CT Abdomen and Pelvis With Intravenous Contrast CLINICAL HISTORY: Reason for exam: abd pain n/v. TECHNIQUE: Axial computed tomography images of the abdomen and pelvis with intravenous contrast. CTDI is 24.55 mGy and DLP is 1217.84 mGy-cm. Automated exposure control was utilized for the study. A dose lowering technique was utilized adhering to the principles of ALARA. CONTRAST: Patient received 82ml of IV contrast COMPARISON: No relevant prior studies available. FINDINGS: Lung bases: Enlarging bibasilar pulmonary nodules. Examples are as follows: Medial right middle lobe best seen on series 2 image 1 measuring 1.3 cm where previously measured 0.7 cm and peripheral anterior left lung base best seen on series 2 image 11 measuring 1.0 cm where previously measured 0.6 cm. No consolidation. ABDOMEN: Liver: 2.2 cm ill-defined mass within the posterior right lobe of the liver is not significantly changed. Gallbladder and bile ducts: Gallbladder has been removed. No ductal dilation. Pancreas: Unremarkable. No mass. No ductal dilation. Spleen: Unremarkable. No splenomegaly. Adrenals: Enlarging left adrenal mass measuring 3.1 cm where previously measured 2.0 cm. Enlarging right adrenal nodule now measuring 2.7 cm where previously measured 1.5 cm. Kidneys and ureters: Heterogeneous bilateral kidneys which have a similar appearance to prior exam in the anterior mid right kidney and the lower pole of the left kidney with likely ill-defined masses. No hydronephrosis. Stomach and bowel: Unremarkable. No obstruction. No mucosal thickening. PELVIS: Appendix: No findings to suggest acute appendicitis. Bladder: Unremarkable. No mass. Reproductive: Uterus has been removed. ABDOMEN and PELVIS: Intraperitoneal space: Unremarkable. No free air. No significant fluid collection. Bones/joints: Enlarging osseous metastatic lesion to the left lateral iliac wing, right iliac ala, and L3 spinous process. No acute fracture. No dislocation. Soft tissues: Anterior abdominal hernia just to the right of midline and above the umbilicus with omental fat protruding through the defect. Vasculature: Unremarkable. No abdominal aortic aneurysm. Lymph nodes: Enlarging retroperitoneal lymphadenopathy. Examples as follows: Left para-aortic now measuring 1.7 cm where previously measured 1.2 cm. IMPRESSION: 1. No evidence of acute abdominal or pelvic process. 2. Progression of metastatic disease to the lungs, adrenal glands, osseous structures, and upper abdominal lymphadenopathy. Metastatic disease to the liver and kidneys is relatively stable. Electronically signed by: Lance Charlton M.D. 07/08/23 20:33 PM
[2023-07-08] MEDS ORDERED: LORazepam 0.5 MG TAB PO PRN (20:57)
[2023-07-08] MEDS ORDERED: POTASSIUM CHLORIDE PWD 20 MEQ PACK PO STA (21:00)
[2023-07-08] MEDS ORDERED: HYDROmorphone HCL 2 MG TAB PO PRN (21:05)
[2023-07-08 21:24] LABS: Magnesium 1.4 mg/dl (1.7-2.4)
--- NOTE | 2023-07-08 22:22 | XRay Report ---
RIGHT HIP 2 VIEWS CLINICAL HISTORY: Right hip pain. FINDINGS: AP and frog-leg views of the right hip are compared to study dated 05/18/2023 and correlate d with pelvic CT dated 07/08/2023. The skeletal structures are well mineralized. There is no radiograp hic evidence of acute fracture involving the right hip or the visualized right hemipelvis. The joint space of the right hip is maintained. The right sacroiliac joint is normal. The overlying soft tissue s are within normal limits. Excreted IV contrast the bladder. Bony metastatic disease was better visu alized on today's pelvic CT. IMPRESSION: No acute bony abnormality is identified. Electronically signed by: Darren Esteban M.D. 07/08/2023 10:19 PM
[2023-07-09] MEDS ORDERED: DOXYCYCLINE HYCLATE 100 MG in DEXTROSE 5% MINI-B 100 ML IV STA (00:25)
[2023-07-09] MEDS ORDERED: LACTULOSE SYRUP 30 GM/45 ML UDP PO STA (00:26)
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
[2023-07-09] MEDS ORDERED: POLYETHYLENE (MIRALAX) 17 GM PACK PO PRN (00:32)
[2023-07-09] MEDS: DOCUSATE SODIUM/SENNA 50/8.6MG TAB PO SCH ×4 (00:40→20:35)
[2023-07-09] MEDS: MAGNESIUM SULFATE / D5W 1 GM/100 ML BAG IV SCH ×3 (00:41→04:49)
[2023-07-09] MEDS ORDERED: HYDROmorphone HCL 2 MG TAB PO PRN (00:58)
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
--- OUTSIDE RECORDS SUMMARY | 2023-07-09 01:21 | External Medical Summary | Summary of Care ---
Author Name Unknown Organization [facility] Address [address] [place] [address] Phone [phone] Care Team Providers Care Leather Goods Maker Name Role Phone Josue Blake MD Primary Care Provider +1 [phone] Reason for Visit * Reason Onset Date Comments Medication Refill 07/06/2023 Encounter Details Date Type Department Care Team (Late st Contact Info) Description 07/06/2023 Refill Palliative Medicine, [address] [place] [address] Chi Mathis MD [address] [place] [id number] Cancer related pain Allergies Active Allergy Reactions Criticality Noted Date [...] BEDTIME 120 Tablet 2 3 Active Umeclidinium [place] 62.5 MCG/ACT Inhalation Aerosol Powder Breath Activated [...] evening meals. 20 Tablet 0 3 Active Ibuprofen 800 MG Oral Tablet (Motrin)Indications :Cancer related pain Take 1 Tablet by mouth every 8 hours as needed for Pain, Moderate. 60 Tablet 0 4 Active Ondansetron HCl 8 MG Oral Tablet (Zofran)Indications :Primary adenocarcinoma of upper lobe of right lung (HCC) Take 1 Tablet by mouth every 8 hours as needed for Nausea. 30 Tablet 1 4 Active fentaNYL 50 MCG/HR Transdermal Patch 72 Hour (Duragesic)Indicati ons:Cancer related pain Place 1 Patch over 72 hours topically on the skin every 3 days. 5 Patch 0 4 Active HYDROmorphone HCl 4 MG Oral Tablet (Dilaudid)Indicatio ns:Cancer related pain Take 1 Tablet by mouth every 4 hours as needed for Pain, Severe. 30 Tablet 0 4 Active fentaNYL 50 MCG/HR Transdermal Patch 72 Hour (Duragesic)Indicati ons:Cancer related pain Place 1 Patch over 72 hours topically on the skin every 3 days. 5 Patch 0 3 07/06/19 24 Discontinu ed(Refill) HYDROmorphone HCl 4 MG Oral Tablet (Dilaudid)Indicatio ns:Cancer related pain Take 1 Tablet by mouth every 4 hours as needed for Pain, Severe. 30 Tablet 0 4 07/06/19 24 Discontinu ed(Refill) Hospital, Clinic, or Other [...] encounter Miscellaneous Notes * Telephone Encounter - Chi Mathis MD - 07/07/2023 9:38 AM EST Signed Prescriptions: Disp Refills fentaNYL 50 MCG/HR Transdermal Patch 72 Ho*5 Patch0 Sig: Place 1 Patch over 72 hours topically on the skin every 3 days. Authorizing Provider: CHI MATHIS HYDROmorphone HCl 4 MG Oral Tablet (Dilaud*30 Tab*0 Sig: Take 1 Tablet by mouth every 4 hours as needed for Pain, Severe. Authorizing Provider: CHI MATHIS * Telephone Encounter - Rebecca Schaefer LPN - 07/07/2023 7:09 AM ESTPending Prescriptions: Disp Refills fentaNYL 50 MCG/HR Transdermal Patch 72 Ho*5 Patch0 Sig: Place 1 Patch over 72 hours topically on the skin every 3 days. HYDROmorphone HCl 4 MG Oral Tablet (Dilaud*30 Tab*0 Sig: Take 1 Tablet by mouth every 4 hours as needed for Pain, Severe. * Telephone Encounter - Rebecca Schaefer LPN - 07/07/2023 7:08 AM EST I have reviewed the patients controlled substance dispensing history in the Prescription Drug Monitoring Program in compliance with the [facility] regulations before prescribing a controlled substance. Were any discrepancies found:no Last prescribed [place]: 06/30, Fentanyl: 06/23 Last Filled [place]: 06/30, Fentanyl: 06/23 RX Due [place]: 07/05, Fentanyl: 07/08 documented in this encounter Plan of Treatment Upcoming Encounters Date Type Department Care Team (Late st Contact Info) Description 07/20/2023 11:00 AM EST Telemedicine [facility] [place] [address] [place] [address] Estelle Davis PA-C [address] [place] [address] Nenita Cantu, [facility] [address] [place] [address] 07/28/2023 10:30 AM EST Telemedicine Palliative Medicine, [facility] 400 [facility] 5th [place] [address] Chi Mathis MD 400 [facility] [place] [address] 11/02/2023 12:00 PM EDT Office Visit Family [facility] [address] [place] [address] Josue Blake MD [address] [place] [address] Health Maintenance Due Date Last Done Comments [...] this encounter Medical Devices Implanted Type Area Retail Pharmacy Merchandiser Device Identifier Shelf Expiration Date Model / Serial / Lot Desara One Single Incision Sling System Implanted:Qty: 1 on 07/11/2022 by Derek Monzon MD at OR [facility] [employer] 10/17/2023 [id number] / / [id number] Port Implant W/8f Poly Cath - [id number] Implanted:Qty: 1 on 10/27/2022 at [facility] CR BARD : PERIPHERAL VASCULAR [id number] 10/27/2023 [id number] / / [id number] Clip Padlock Pro Select - [id number] Implanted:Qty: 1 on 05/13/2023 by Destin Zhong MD at OR [facility] [id number] 03/05/2026 [id number] / / [id number] documented as of this encounter Visit Diagnoses Diagnosis 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 No Code Status History Code Status Date Activated Date Inactivated Comments Full Code 07/11/2022 8:35 AM 07/11/2022 3:33 PM This order reflects the patients wishes and were consensually agreed upon. Question Answer Comments Discussion of Advance Directives occurred with: Patient Does the patient have a Living Will? No Does the patient have Health Care Power of Concrete Pump Operator Helper? No Care Teams Leather Goods Maker Relationship Specialty Start Date End Date Josue Blake MD [address] [place] [address] PCP - General Family Medicine 02/06/22 documented as of this encounter
--- OUTSIDE RECORDS SUMMARY | 2023-07-09 01:21 | External Medical Summary | Summary of Care ---
Author Name Unknown Organization [facility] Address [address] [place] [address] Phone [phone] Care Team Providers Care Operations Developer Name Role Phone Josue Blake MD Primary Care Provider [phone] [phone] Encounter Details Date Type Department Care Team (Late st Contact Info) Description 07/02/2023 Telephone Palliative Medicine, [facility] 400 [facility] 5th Floor [place], [place] [id number] Vickie Chavez CRNP 400 [place], [place] [id number] Allergies Active Allergy Reactions Criticality Noted Date [...] BEDTIME 120 Tablet 2 01/09/2023 Active Umeclidinium [place] 62.5 MCG/ACT Inhalation Aerosol Powder Breath Activated [...] EST Received the following message from Raquel [place] anita WHITMORE: "Ritchie Lowe presented [facility] with her best friend of 30 [...] per best friend." [facility] to [facility] with patient's [...] [facility] [email or web address] documented in this encounter Plan of Treatment Upcoming Encounters Date Type Department Care Team (Late st Contact Info) Description 07/20/2023 11:00 AM EST Telemedicine [facility] [address] [place] [address] Estelle Davis PA-C [address] [place] [address] Nenita Cantu, [facility] Cream Dumper [address] [place] [address] [place] [address] 07/28/2023 10:30 AM EST Telemedicine Palliative Medicine, [facility] 400 [facility] 5th [place] [address] Becky Dial MD 400 [facility] [address] 11/02/2023 12:00 PM EDT Office Visit [facility] 132 [place] [address] Josue Blake MD 132 [place] [address] Health Maintenance Due Date Last Done Comments [...] this encounter Medical Devices Implanted Type Area Clinical Rehabilitation Coordinator Device Identifier Shelf Expiration Date Model / Serial / Lot Desara One Single Incision Sling System Implanted:Qty: 1 on 07/11/2022 by Derek Monzon MD at OR [facility] [employer] 10/17/2023 [id number] / / [id number] Port Implant W/8f Poly Cath - [id number] Implanted:Qty: 1 on 10/27/2022 at [facility] CR BARD : PERIPHERAL VASCULAR [id number] 10/27/2023 [id number] / / [id number] Clip Padlock Pro Select - [id number] Implanted:Qty: 1 on 05/13/2023 by Destin Zhong MD at OR [facility] [id number] 03/05/2026 [id number] / / [id number] documented as of this encounter Advance Directives [...] the patient have Health Care Power of Photographer Portrait? No Code Status History Code Status Date Activated Date Inactivated Comments Full Code 07/11/2022 8:35 AM 07/11/2022 3:33 PM This order reflects the patients wishes and were consensually agreed upon. Question Answer Comments Discussion of Advance Directives occurred with: Patient Does the patient have a Living Will? No Does the patient have Health Care Power of Photographer Portrait? No Care Teams Operations Developer Relationship Specialty Start Date End Date Josue Blake MD [address] [place] [address] PCP - General Family Medicine 02/06/22 documented as of this encounter
--- OUTSIDE RECORDS SUMMARY | 2023-07-09 01:22 | External Medical Summary | Summary of Care ---
Author Name Unknown Organization [facility] Address [address] [place] [address] Phone [phone] Care Team Providers Care Electric Razor Mechanic Name Role Phone Josue Blake MD Primary Care Provider [phone] [phone] Encounter Details Date Type Department Care Team (Late st Contact Info) Description 07/02/2023 Telephone Palliative Medicine, [facility] 400 [facility] 5th Floor [place], [place] [phone] Vickie Chavez CRNP 400 [place], [place] [phone] Allergies Active Allergy Reactions Criticality Noted Date [...] as of this encounter (statuses as of 07/06/2023) Medications Medication Sig Dispensed Refills Start Date [...] BEDTIME 120 Tablet 2 01/09/2023 Active Umeclidinium [place] 62.5 MCG/ACT Inhalation Aerosol Powder Breath Activated [...] as of this encounter (statuses as of 07/06/2023) Active Problems Problem Noted Date Diagnosed Date [...] as of this encounter (statuses as of 07/06/2023) Resolved Problems Problem Noted Date Diagnosed Date [...] as of this encounter (statuses as of 07/06/2023) Immunizations Name Administration Dates Next Due TDAP [...] EST Received the following message from Raquel [place] anita WHITMORE: "[facility] best friend of 30 [...] per best friend." [facility] with patient's friend. I recommended for the staff member who patient's friend reported this to, to call Adult Protective Services to make a report. APS may be able to do a well- check. I also asked [place] staff to obtain a UDStoday if able and forward the results to us. HAIM Wong Palliative Medicine Nurse Practitioner [facility] [email or web address] documented in this encounter Plan of Treatment Upcoming Encounters Date Type Department Care Team (Late st Contact Info) Description 07/20/2023 9:00 AM EST Office Visit Hematology/Oncology [facility] [address] [place] [address] Vickie Squires CRNP 400 [facility] [address] 07/20/2023 11:00 AM EST Telemedicine [facility] 300 [facility] [place] [address] Estelle Davis PA-C 300 [place] [address] Nenita Cantu, [facility] [address] [place] [address] 07/28/2023 10:30 AM EST Telemedicine Palliative Medicine, [facility] 400 [facility] 5th Floor [place] [address] Becky Dial MD 400 [facility] [place] [id number] 11/02/2023 12:00 PM EDT Office Visit Family Practice [facility] [address] [place] [address] Josue Blake MD [address] [place] [address] Health Maintenance Due Date Last Done Comments [...] this encounter Medical Devices Implanted Type Area Train Crew Member Device Identifier Shelf Expiration Date Model / Serial / Lot Desara One Single Incision Sling System Implanted:Qty: 1 on 07/11/2022 by Derek Monzon MD at OR [facility] Pelvis [employer] 10/17/2023 [id number] / / [id number] Port Implant W/8f Poly Cath - [id number] Implanted:Qty: 1 on 10/27/2022 at [facility] CR BARD : PERIPHERAL VASCULAR [id number] 10/27/2023 [id number] / / [id number] Clip Julienne Pro Select - [id number] Implanted:Qty: 1 on 05/13/2023 by Destin Zhong MD at [facility] [id number] 03/05/2026 [id number] / / [id number] documented as of this encounter Advance Directives [...] the patient have Health Care Power of Electrocardiograph Operator? No Code Status History Code Status Date Activated Date Inactivated Comments Full Code 07/11/2022 8:35 AM 07/11/2022 3:33 PM This order reflects the patients wishes and were consensually agreed upon. Question Answer Comments Discussion of Advance Directives occurred with: Patient Does the patient have a Living Will? No Does the patient have Health Care Power of Electrocardiograph Operator? No Care Teams Electric Razor Mechanic Relationship Specialty Start Date End Date Josue Blake MD [address] [place] [address] PCP - General Family Medicine 02/06/22 documented as of this encounter
--- OUTSIDE RECORDS SUMMARY | 2023-07-09 01:22 | External Medical Summary | Summary of Care ---
Author Name Unknown Organization [facility] Address [address] [place] [address] Phone [phone] Care Team Providers Care Roping Tender Name Role Phone Josue Blake MD Primary Care Provider +1 [phone] Encounter Details Date Type Department Care Team (Late st Contact Info) Description 07/02/2023 Telephone Palliative Medicine, [facility] 400 [facility] 5th Floor [place], [place] [phone] Vickie Chavez CRNP 400 [place], [place] [phone] Allergies Active Allergy Reactions Criticality Noted Date [...] BEDTIME 120 Tablet 2 01/09/2023 Active Umeclidinium [place] 62.5 MCG/ACT Inhalation Aerosol Powder Breath Activated [...] EST Received the following message from Raquel [place] anita WHITMORE: "Ritchie Lowe presented to [facility] with her best friend [...] per best friend." [facility] to meet with patient's friend. I recommended for the staff member who patient's friend reported this to, to call Adult Protective Services to make a report. APS may be able to do a well- check. I also asked [place] staff to obtain a UDStoday if able and forward the results to us. HAIM Wong Palliative Medicine Nurse Practitioner [facility] [email or web address] documented in this encounter Plan of Treatment Upcoming Encounters Date Type Department Care Team (Late st Contact Info) Description 07/20/2023 11:00 AM EST Telemedicine [facility] [address] [place] [address] Estelle Davis PA-C [address] [place] [address] Nenita Cantu, Community Health Demolitionist [address] [place] [address] [place] [address] 07/28/2023 10:30 AM EST Telemedicine Palliative Medicine, [facility] 400 [facility] 5th [place] [address] Becky Dial MD 400 [facility] [address] 11/02/2023 12:00 PM EDT Office Visit [facility] 132 [place] [address] Josue Blake MD [address] [place] [address] Health Maintenance Due Date Last Done Comments [...] this encounter Medical Devices Implanted Type Area Cream Ripener Device Identifier Shelf Expiration Date Model / Serial / Lot Desara One Single Incision Sling System Implanted:Qty: 1 on 07/11/2022 by Derek Monzon MD at OR [facility] Pelvis [employer] 10/17/2023 [id number] / / [id number] Port Implant W/8f Poly Cath - [id number] Implanted:Qty: 1 on 10/27/2022 at [facility] CR BARD : PERIPHERAL VASCULAR [id number] 10/27/2023 [id number] / / [id number] Clip Padlock Pro Select - [id number] Implanted:Qty: 1 on 05/13/2023 by Destin Zhong MD at OR [facility] [id number] 03/05/2026 [id number] / / [id number] documented as of this encounter Advance Directives [...] the patient have Health Care Power of Tipple Tender? No Code Status History Code Status Date Activated Date Inactivated Comments Full Code 07/11/2022 8:35 AM 07/11/2022 3:33 PM This order reflects the patients wishes and were consensually agreed upon. Question Answer Comments Discussion of Advance Directives occurred with: Patient Does the patient have a Living Will? No Does the patient have Health Care Power of Tipple Tender? No Care Teams Roping Tender Relationship Specialty Start Date End Date Josue Blake MD [address] [place] [address] PCP - General Family Medicine 02/06/22 documented as of this encounter
--- OUTSIDE RECORDS SUMMARY | 2023-07-09 01:22 | External Medical Summary | Summary of Care ---
Author Name Unknown Organization [facility] Address [address] [place] [address] Phone [phone] Care Team Providers Care Salon Shampoo Assistant Name Role Phone Josue Blake MD Primary Care Provider [phone] -[phone] Reason for Visit * Reason Onset Date Comments NEW PATIENT 07/06/2023 BERNARDA SEEN SOONER Encounter Details Date Type Department Care Team (Late st Contact Info) Description 07/06/2023 Telephone Hematology/Oncology [facility] [address] [place] [address] Richard David MD [address] [facility] [place] [address] NEW PATIENT (BERNARDA SEEN SOONER) Allergies Active Allergy Reactions Criticality Noted Date [...] BEDTIME 120 Tablet 2 01/09/2023 Active Umeclidinium [place] 62.5 MCG/ACT Inhalation Aerosol Powder Breath Activated [...] encounter Miscellaneous Notes * Telephone Encounter - Stephy Beltran CMA - 07/06/2023 12:35 PM EST Received message from HAIM Liang who advised that Ritchie [facility]. Also patient was previously seen by Dr. Joaquín Charlton at [facility]. Being she would be a new patient for Dr. Tejinder David; the apointment with HAIM Liang was cancelled. She will be rescheduled to 07/21/[address] Tejinder David. Stephy will enter this into [facility] as soon as the closed spot opens documented in this encounter Plan of Treatment Upcoming Encounters Date Type Department Care Team (Late st Contact Info) Description 07/20/2023 11:00 AM EST Telemedicine [facility] [place] [place] [address] [place] [address] Estelle Davis PA-C [address] [place] [id number] Nenita Cant[address] [place] [address] 07/28/2023 10:30 AM EST Telemedicine Palliative Medicine, [facility] 400 [facility] 5th [place] [address] Becky Dial MD 400 [place] [address] 11/02/2023 12:00 PM EDT Office Visit Family [facility] [address] [place] [address] Josue Blake MD [address] [place] [address] Health Maintenance Due Date Last Done Comments [...] this encounter Medical Devices Implanted Type Area Plycor Operator Device Identifier Shelf Expiration Date Model / Serial / Lot Desara One Single Incision Sling System Implanted:Qty: 1 on 07/11/2022 by Derek Monzon MD at OR [facility] [employer] 10/17/2023 [id number] / / [id number] Port Implant W/8f Poly Cath - [id number] Implanted:Qty: 1 on 10/27/2022 at [facility] CR BARD : PERIPHERAL VASCULAR [id number] 10/27/2023 [id number] / / [id number] Clip Padlock Pro Select - [id number] Implanted:Qty: 1 on 05/13/2023 by Destin Zhong MD at OR [facility] [id number] 03/05/2026 [id number] / / [id number] documented as of this encounter Advance Directives [...] the patient have Health Care Power of Licensed Clinician? No Code Status History Code Status Date Activated Date Inactivated Comments Full Code 07/11/2022 8:35 AM 07/11/2022 3:33 PM This order reflects the patients wishes and were consensually agreed upon. Question Answer Comments Discussion of Advance Directives occurred with: Patient Does the patient have a Living Will? No Does the patient have Health Care Power of Licensed Clinician? No Care Teams Salon Shampoo Assistant Relationship Specialty Start Date End Date Josue Blake MD 132 [facility] [place] [address] PCP - General Family Medicine 02/06/22 documented as of this encounter
--- OUTSIDE RECORDS SUMMARY | 2023-07-09 01:22 | External Medical Summary | Summary of Care ---
Author Name Unknown Organization [facility] Address [address] [place] [address] Phone [phone] Care Team Providers Care Room Service Food Service Attendant Name Role Phone Josue Blake MD Primary Care Provider +1 [phone] Encounter Details Date Type Department Care Team (Late st Contact Info) Description 07/02/2023 Telephone Palliative Medicine, [facility] 400 [facility] 5th Floor [place], [place] [address] Vickie Chavez CRNP 400 [place], [place] [phone] Allergies Active Allergy Reactions Criticality Noted Date [...] BEDTIME 120 Tablet 2 01/09/2023 Active Umeclidinium [place] 62.5 MCG/ACT Inhalation Aerosol Powder Breath Activated [...] from Raquel WHITMORE: "[facility] [...] per best friend." [facility] to meet with patient's friend. I recommended for the staff member who patient's friend reported this to, to call Adult Protective Services to make a report. APS may be able to do a well- check. I also asked [place] staff to obtain a UDStoday if able and forward the results to us. HAIM Wong Palliative Medicine Nurse Practitioner [facility] [email or web address] documented in this encounter Plan of Treatment Upcoming Encounters Date Type Department Care Team (Late st Contact Info) Description 07/20/2023 11:00 AM EST Telemedicine [facility] [place] [address] [place] [address] Estelle Davis PA-C [address] [place] [address] Nenita Cantu, [address] [place] [address] 07/28/2023 10:30 AM EST Telemedicine Palliative Medicine, [facility] 400 [facility] 5th [place] [address] Becky Dial MD [address] [place] [address] 11/02/2023 12:00 PM EDT Office Visit Family [facility] [address] [place] [address] Josue Blake MD [address] [place] [address] Health Maintenance Due Date Last Done Comments [...] this encounter Medical Devices Implanted Type Area Furnace Operator Device Identifier Shelf Expiration Date Model / Serial / Lot Desara One Single Incision Sling System Implanted:Qty: 1 on 07/11/2022 by Derek Monzon MD at OR [facility] [employer] 10/17/2023 [id number] / / [id number] Port Implant W/8f Poly Cath - [id number] Implanted:Qty: 1 on 10/27/2022 at [facility] CR BARD : PERIPHERAL VASCULAR [id number] 10/27/2023 [id number] / / [id number] Clip Padlock Pro Select - [id number] Implanted:Qty: 1 on 05/13/2023 by Destin Zhong MD at OR [facility] END[facility]COPY [facility] [id number] 03/05/2026 [id number] / / [id number] documented as of this encounter Advance Directives [...] the patient have Health Care Power of Livestock Yard Supervisor? No Code Status History Code Status Date Activated Date Inactivated Comments Full Code 07/11/2022 8:35 AM 07/11/2022 3:33 PM This order reflects the patients wishes and were consensually agreed upon. Question Answer Comments Discussion of Advance Directives occurred with: Patient Does the patient have a Living Will? No Does the patient have Health Care Power of Livestock Yard Supervisor? No Care Teams Room Service Food Service Attendant Relationship Specialty Start Date End Date Josue Blake MD [address] [place] [address] PCP - General Family Medicine 02/06/22 documented as of this encounter
[2023-07-09] MEDS ORDERED: chlorproMAZINE HCL 25 MG TAB PO PRN (01:25)
[2023-07-09] MEDS: PROMETHAZINE HCL 12.5 MG in SODIUM CHLORIDE 0.9% 50 ML IV PRN ×2 (01:55→13:49)
[2023-07-09] MEDS ORDERED: FIRST - Mouthwash BLM 119 ML PO PRN (02:07)
[2023-07-09] MEDS: ACETAMINOPHEN 1,000 MG/100 ML VIAL IV PRN ×3 (02:16→19:36)
[2023-07-09 05:11] LABS: Basophils # (auto) 0.02 K/uL (0.00-0.20); Basophils % (auto) 0.4 %; Eosinophils # (auto) 0.11 K/uL (0.00-0.50); Eosinophils % (auto) 2.2 %; Hematocrit (blood only) 31.8 % (37.0-47.0); Hemoglobin 10.5 g/dl (12.0-16.0); Immature Granulocytes # (auto) 0.02 K/uL (0.01-0.20); Immature Granulocytes % (auto) 0.4 %; Lymphocytes # (auto) 0.86 K/uL (1.20-3.40); Lymphocytes % (auto) 17.1 %; Mean Corpuscular Hemoglobin 30.4 pg (25.0-34.0); Mean Corpuscular Volume 92.2 fL (80.0-100.0); Mean Platelet Volume 9.9 fL (9.4-12.4); Monocytes # (auto) 0.32 K/uL (0.11-0.59); Monocytes % (auto) 6.3 %; Neutrophils # (auto) 3.71 K/uL (1.40-6.50); Neutrophils % (auto) 73.6 %; Platelet Count 167 K/uL (130-400); RDW Coefficient of Variation 14.5 % (11.5-14.5); RDW Standard Deviation 48.3 fL (36.4-46.3); Red Blood Count 3.45 M/uL (4.20-5.40); White Blood Count 5.04 K/ul (4.8-10.8)
[2023-07-09 05:23] LABS: BUN Creatinine Ratio 15.3 (10-20); Calcium 8.9 mg/dl (8.6-10.3); Creatinine Clr Calc Pharmacy 88.6 ml/min; Est GFR (African American) 95.9 ml/min; Est GFR (Non-African American) 82.8 ml/min; Potassium 3.2 mmol/L (3.5-5.1)
[2023-07-09] MEDS ORDERED: HYDROmorphone INJ 2 MG/ML SYR/VIAL IV PRN ×2 (07:25→07:39)
[2023-07-09] MEDS ORDERED: HYDROmorphone INJ 1 MG/ML SYRINGE ONE (07:45)
--- NOTE | 2023-07-09 07:49 | Communication Note ---
Date of Service: July 09, 2023 Pt was seen in the AM Was complaining of lower extremity pain. Stated that was the reason she came in. Asking what is going to be done about it. Palliative care consult placed for further pain medication management. Asking about going to radiation today, due for appt to help with hip pain. She states she thought radiation would help but it has not been helping with the pain. Nursing able to facilitate and take her down to her radiology appointment. Would like a regular diet. However, would prefer to receive her pain medications IV as she states that it works better for her that way. Nausea not relieved by phenergan, obtaining relief with Reglan, ordered. Also requesting k pad, ordered. Will continue to monitor.
[2023-07-09] MEDS ORDERED: CHECK fentaNYL PATCH PLACEMENT SCH (08:00)
[2023-07-09] MEDS ORDERED: ENOXAPARIN INJ 40 MG/0.4 ML SYR SQ SCH (09:00)
[2023-07-09] MEDS: FLUTICASONE/VILANTEROL 100/25MCG 14 PUFFS/INHALER INH SCH (09:08)
[2023-07-09] MEDS: UMECLIDINIUM BROMIDE 62.5MCG/BLISTER 7 PUFFS/INHALER INH SCH (09:08)
[2023-07-09] MEDS: FOLIC ACID 1 MG TAB PO SCH (09:09)
[2023-07-09] MEDS: PANTOprazole 40 MG TAB PO SCH ×3 (09:09→20:36)
[2023-07-09] MEDS ORDERED: fentaNYL 75 MCG/HR TDSY TD SCH ×2 (11:45→14:30)
[2023-07-09] MEDS ORDERED: HYDROmorphone INJ 0.5 MG/0.5 ML SYR IV PRN (11:46)
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
[2023-07-09] MEDS: IBUPROFEN 800 MG TAB PO PRN (12:53)
[2023-07-09] MEDS: HYDROmorphone INJ 0.5 MG/0.5 ML SYR IV PRN ×3 (12:54→20:29)
[2023-07-09] MEDS ORDERED: PROMETHAZINE 12.5 MG/50.5 ML NSS IV ONE (13:40)
[2023-07-09 14:43] LABS: Amphetamines+Metham, Urine Neg (Neg); Barbiturates, Urine Neg (Neg); Benzodiazepine, Urine Neg (Neg); Cocaine, Urine Neg (Neg); MDMA (Ecstacy), Urine Neg (Neg); Marijuana, Urine Pos (Neg); Methadone, Urine Neg (Neg); Opiate, Urine Pos (Neg); Phencyclidine, Urine Neg (Neg)
[2023-07-09] MEDS ORDERED: METOCLOPRAMIDE HCL INJ 5 MG/ML 2 ML VIAL IV ONE (15:07)
[2023-07-09] MEDS: CHECK fentaNYL PATCH PLACEMENT SCH (16:29)
[2023-07-09] MEDS: METOCLOPRAMIDE HCL INJ 5 MG/ML 2 ML VIAL IV PRN (17:23)
[2023-07-09] MEDS ORDERED: POTASSIUM CHLORIDE 20 MEQ/15 ML UDC PO STA (18:20)
[2023-07-09] MEDS: DOXYCYCLINE HYCLATE 100 MG CAP PO SCH (20:27)
[2023-07-10] MEDS: HYDROmorphone INJ 0.5 MG/0.5 ML SYR IV PRN ×4 (00:32→13:00)
[2023-07-10] MEDS: CHECK fentaNYL PATCH PLACEMENT SCH ×2 (00:34→09:02)
[2023-07-10] MEDS: IBUPROFEN 800 MG TAB PO PRN ×3 (03:37→14:40)
[2023-07-10] MEDS: METOCLOPRAMIDE HCL INJ 5 MG/ML 2 ML VIAL IV PRN ×2 (03:41→09:01)
[2023-07-10 06:33] LABS: Basophils # (auto) 0.02 K/uL (0.00-0.20); Basophils % (auto) 0.3 %; Eosinophils # (auto) 0.09 K/uL (0.00-0.50); Eosinophils % (auto) 1.5 %; Hematocrit (blood only) 31.9 % (37.0-47.0); Hemoglobin 10.3 g/dl (12.0-16.0); Immature Granulocytes # (auto) 0.02 K/uL (0.01-0.20); Immature Granulocytes % (auto) 0.3 %; Lymphocytes # (auto) 0.56 K/uL (1.20-3.40); Lymphocytes % (auto) 9.4 %; Mean Corpuscular Hemoglobin 29.9 pg (25.0-34.0); Mean Corpuscular Hgb Conc 32.3 g/dL (32.0-36.0); Mean Corpuscular Volume 92.7 fL (80.0-100.0); Mean Platelet Volume 9.8 fL (9.4-12.4); Monocytes # (auto) 0.23 K/uL (0.11-0.59); Monocytes % (auto) 3.9 %; Neutrophils # (auto) 5.04 K/uL (1.40-6.50); Neutrophils % (auto) 84.6 %; Platelet Count 165 K/uL (130-400); RDW Coefficient of Variation 14.1 % (11.5-14.5); Red Blood Count 3.44 M/uL (4.20-5.40); White Blood Count 5.96 K/ul (4.8-10.8)
[2023-07-10 07:17] LABS: Calcium 8.8 mg/dl (8.6-10.3); Magnesium 1.4 mg/dl (1.7-2.4); Potassium 3.1 mmol/L (3.5-5.1)
[2023-07-10 07:23] LABS: BUN Creatinine Ratio 26.3 (10-20); Est GFR (African American) 129.8 ml/min; Phosphorus 3.7 mg/dl (2.5-4.9)
[2023-07-10] MEDS: DOCUSATE SODIUM/SENNA 50/8.6MG TAB PO SCH (09:02)
[2023-07-10] MEDS: DOXYCYCLINE HYCLATE 100 MG CAP PO SCH (09:02)
[2023-07-10] MEDS: FLUTICASONE/VILANTEROL 100/25MCG 14 PUFFS/INHALER INH SCH (09:02)
[2023-07-10] MEDS: FOLIC ACID 1 MG TAB PO SCH (09:03)
[2023-07-10] MEDS: UMECLIDINIUM BROMIDE 62.5MCG/BLISTER 7 PUFFS/INHALER INH SCH (09:03)
[2023-07-10] MEDS: PANTOprazole 40 MG TAB PO SCH (09:03)
[2023-07-10] MEDS: HEPARIN 100 UNIT/ML 5ML FLUSH FLUSH PRN ×2 (09:05→13:20)
[2023-07-10] MEDS ORDERED: POTASSIUM CHLORIDE 20 MEQ/15 ML UDC PO STA (09:18)
[2023-07-10] MEDS: MAGNESIUM SULFATE / D5W 1 GM/100 ML BAG IV SCH ×2 (09:44→11:46)
[2023-07-10] MEDS ORDERED: POTASSIUM CHLORIDE CRTAB 20 MEQ TABCR PO STA (09:49)
[2023-07-10] MEDS: ACETAMINOPHEN 1,000 MG/100 ML VIAL IV PRN (11:46)
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
--- NOTE | 2023-07-10 14:26 | Communication Note ---
Date of Service: July 10, 2023 By CMS guidelines, a determination that the admission or continued stay is not medically necessary has been made by a member of the UR committee and mali wallace for this hospital stay, therefore a Code 44 will be completed and the Inpatient admission will be changed to outpatient.
[2023-07-10] MEDS ORDERED: fentaNYL 50 MCG/HR TDSY TD SCH (20:00)
[2023-07-10] MEDS ORDERED: POTASSIUM CHLORIDE CRTAB 20 MEQ TABCR PO SCH (21:00)
[2023-07-10] MEDS ORDERED: MAGNESIUM OXIDE 400 MG TAB PO SCH (21:00)
[2023-07-10] MEDS ORDERED: POTASSIUM CHLORIDE 20 MEQ/15 ML UDC PO SCH (21:00)
[2023-07-13 15:12] LABS: Codeine Urine NEGATIVE ng/mL (<50); Hydrocodone Urine NEGATIVE ng/mL (<50); Hydromor Urine 9690 ng/mL (<50); Marijuana Quant, GCMS Urine 30 ng/mL (<5); Morphine Urine NEGATIVE ng/mL (<50); Norhydrocodone Conf Ur NEGATIVE ng/mL (<50); Noroxycodone Urine NEGATIVE ng/mL (<50); Oxycodone Urine NEGATIVE ng/mL (<50); Oxymorph Urine NEGATIVE ng/mL (<50)
== END 2023-07-10 14:58 | disposition home health service (06) ==
LOC: ED 16:21 → EDINP 07-09 00:30 → INTOOBSV 07-09 00:30 → 2W 07-09 01:26

== ENCOUNTER 2023-07-18 07:41 | Inpatient (IN) ==
--- OUTSIDE RECORDS SUMMARY | 2023-07-18 07:50 | External Medical Summary | Summary of Care ---
Author Name Unknown Organization [facility] Address [address] [place] [address] Phone [phone] Care Team Providers Care Chief Architect Name Role Phone Josue Blake MD Primary Care Provider [phone] Reason for Visit * Reason Comments Hospital Follow-Up Pt here for hospital follow up Encounter Details Date Type Department Care Team (Late st Contact Info) Description 07/15/2023 3:20 PM EST Office [facility] [address] [facility]ue [facility] MD [facility] [place] [phone] Cancer related pain*; Medication management Allergies Active Allergy Reactions Criticality Noted Date [...] as of this encounter (statuses as of 07/16/2023) Medications Medication Sig Dispensed Refills Start Date End Date Status BD Luer-Tamar Syringe 25G X 1" 3 ML (Syringe/Needle (Disp)) USE ONE SYRINGE FOR B12 INJECTIONS Strength: 25G X 1" 3 ML 1 Each 11 3 Active Spironolactone 100 MG Oral Tablet (Aldactone) TAKE TWO TABLETS BY MOUTH IN THE MORNING AND TWO TABLETS BEFORE BEDTIME 120 Tablet 2 3 Active Umeclidinium Columbia 62.5 MCG/ACT Inhalation Aerosol Powder Breath Activated [...] the evening. 24 Suppository 0 3 Active Polyethylene Glycol 3350 17 GM/SCOOP Oral Powder [...] 3 Active Benzonatate 100 MG Oral Capsule (Tessalcynthia Perlearnest) Take 1 Capsule by mouth 3 times [...] before bedtime. 120 mL 1 3 Active guaiFENesin ER 600 MG Oral Tablet Extended [...] evening meals. 20 Tablet 0 3 Active Ondansetron HCl 8 MG Oral Tablet (Zofran)Indications :Primary adenocarcinoma of upper lobe of right lung (HCC) Take 1 Tablet by mouth every 8 hours as needed for Nausea. 30 Tablet 1 4 Active fentaNYL 50 MCG/HR Transdermal Patch 72 Hour (Duragesic)Indicati ons:Cancer related pain Place 1 Patch over 72 hours topically on the skin every 3 days. 5 Patch 0 4 Active Promethazine HCl 25 MG Oral Tablet (Phenergan) Take 1 Tablet by mouth every 6 hours as needed for Nausea. or vomiting 12 Tablet 0 4 Active HYDROmorphone HCl 4 MG Oral Tablet (Dilaudid)Indicatio ns:Cancer related pain Take 1 Tablet by mouth every 4 hours as needed for Pain, Severe. 42 Tablet 0 4 Active Ibuprofen 800 MG Oral Tablet (Motrin)Indications :Cancer related pain Take 1 Tablet by mouth every 8 hours as needed for Pain, Moderate. 60 Tablet 3 4 Active Ibuprofen 800 MG Oral Tablet (Motrin)Indications :Cancer related pain Take 1 Tablet by mouth every 8 hours as needed for Pain, Moderate. 60 Tablet 0 4 07/15/19 24 Discontinu ed(Refill) Hospital, Clinic, or Other Facility Administered Medication Ordered Dose Route Frequency Start Date End Date Status hEParin 10,000 Units, bupivacaine (Sensorcaine) 30 mL, methylPREDNISolone sodium succ (SOLU-Medrol) 125 mg, gentamicin 80 mg, sodium bicarbonate 2 mEq bladder instillationIndications:Inter stitial cystitis IS QWEEK 08/19/2022 Active documented as of this encounter (statuses as of 07/16/2023) Active Problems Problem Noted Date Diagnosed Date S/P percutaneous endoscopic gastrostomy (PEG) tube placement [...] as of this encounter (statuses as of 07/16/2023) Resolved Problems Problem Noted Date Diagnosed Date Resolved Date SOB (shortness of breath) 06/10/2023 Odynophagia 04/29/2023 05/04/2023 Food insecurity 12/08/2022 01/07/2023 [...] as of this encounter (statuses as of 07/16/2023) Immunizations Name Administration Dates Next Due TDAP [...] you got the money to buy more. Sometimes true Within the past 12 months, t he food you bought just didn't last and you didn't have money to get more. Sometimes true Sex and Gender Information Value Date Recorded Sex Assigned at Female 04/22/2022 10:08 AM EDT Gender Identity Female 04/22/2022 10:08 AM EDT Sexual Orientation Straight 04/22/2022 10 :08 AM EDT Job Start Date Occupation Industry Not on file Not on file Not on file documented as of this encounter Last Filed Vital Signs Vital Sign Reading Time Taken Comments Blood Pressure - - Pulse - - Temperature - - Respiratory Rate - - Oxygen Saturation - - Inhaled Oxygen Concentration - - Weight 76.2 kg (168 lb) 07/15/2023 3:11 PM EST Height 165.1 cm (5' 5") 07/15/2023 3:11 PM EST Body Mass Index 27.96 07/15/2023 3:11 PM EST documented in this encounter Functional [...] as of this encounter Progress Notes * Josue Blake MD - 07/16/2023 1:16 AM EST SUBJECTIVE: Ritchie Lowe is a 43 year old female. Chief Complaint Patient presents with Hospital Follow-Up Pt here for hospital follow up HPI: Seen with caser shoe parts. Poor prognosis due to metastatic cancer. Pain mgmt per palliative. Many psychosocial issues which are being attended [facility] by [facility]. Patient Active Problem List Diagnosis Code ADHD (attention deficit hyperactivity disorder) F90.9 PCOS (polycystic ovarian syndrome) E28.2 Bipolar 1 disorder (HCC) F31.9 Fibromyalgia M79.7 Cutaneous lupus erythematosus L93.2 Tobacco use disorder F17.200 Obesity, Class I, BMI 30.0-34.9 (see actual BMI) E66.9 Pseudocholinesterase deficiency E88.09 Primary adenocarcinoma of upper lobe of right lung (HCC) C34.11 Raynaud's disease without gangrene I73.00 Pulmonary embolism on right (HCC) I26.99 Pancytopenia due to chemotherapy (HCC) D61.810 Interstitial cystitis N30.10 Lumbar degenerative disc disease M51.36 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 30 Each 5 Alum & Mag Hydroxide-Simeth (MAGIC MOUTHWASH) OR 10ml TO mucosal AREA BEFORE meals AND AT BEDTIME Bisacodyl 10 MG Rectal Suppository (Dulcolax) Administer 1 Suppository into the rectum in the morning and 1 Suppository in the evening. 24 Suppository 0 Polyethylene Glycol 3350 17 GM/SCOOP Oral Powder (MiraLax) Take 17 g by mouth in the morning and 17g before bedtime. 255 g 0 Sennosides 8.6 MG Oral Tablet (Senokot) Take 2 Tablets by mouth in the morning and 2 Tablets at noon and 2 Tablets before bedtime. Taking 2 at bedtime. 90 Tablet 0 LORazepam 0.5 MG Oral Tablet (Ativan) Take 1 Tablet by mouth in the morning and 1 Tablet at noon and 1 Tablet before bedtime. (Patient taking differently: Take 1 Tablet by mouth in the morning and 1 Tablet at noon and 1 Tablet before bedtime. Taking as needed.) 90 Tablet 0 Famotidine 10 MG Oral Tablet (Pepcid) Take 1 Tablet by mouth in the morning and 1 Tablet before bedtime. 60 Tablet 3 Fluticasone-Salmeterol 230-21 MCG/ACT Inhalation Aerosol (Advair) Inhale 2 Puffs by mouth in the morning and 2 Puffs before bedtime. 12 g 12 Ventolin HFA 108 (90 Base) MCG/ACT Inhalation Aerosol Solution Inhale 2 Puffs by mouth every 4 hours as needed for Cough, Shortness of Breath or Wheezing. 18 g 1 Folic Acid 1 MG Oral Tablet Take 1 Tablet by mouth in the morning. 30 Tablet 5 chlorproMAZINE HCl 25 MG Oral Tablet (Thorazine) Take 1 Tablet by mouth 4 times a day as needed forOther (hiccups). 30 Tablet 0 Benzonatate 100 MG Oral Capsule (Tessalon Perles) Take 1 Capsule by mouth 3 times a day as needed for Cough. Do not cut, crush, or chew. 50 Capsule 1 Promethazine HCl 25 MG Rectal Suppository (Phenergan) Administer 1 Suppository into the rectum every 6 hours as needed for Nausea. 10 Suppository 1 Ipratropium-Albuterol 0.5-2.5 (3) MG/3ML Inhalation Solution (Duoneb) Inhale 3 mL via nebulizer in the morning and 3 mL at noon and 3 mL in the evening and 3 mL before bedtime. 120 mL 1 guaiFENesin ER 600 MG Oral Tablet Extended Release 12 Hour (Mucinex) Take 1 Tablet by mouth 2 timesa day as needed for Congestion. Take with plenty of water. Do not cut, crush or chew 40 Tablet 2 Gabapentin 300 MG Oral Capsule (Neurontin) Take 1 Capsule by mouth in the morning and 1 Capsule at noon and 1 Capsule before bedtime. Ondansetron HCl 8 MG Oral Tablet (Zofran) Take 1 Tablet by mouth every 8 hours as needed for Nausea. 30 Tablet 1 Promethazine HCl 25 MG Oral Tablet (Phenergan) Take 1 Tablet by mouth every 6 hours as needed for Nausea. or vomiting 12 Tablet 0 Ibuprofen 800 MG Oral Tablet (Motrin) Take 1 Tablet by mouth every 8 hours as needed for Pain, Moderate. 60 Tablet 3 BD Luer-Tamar Syringe 25G X 1" 3 ML (Syringe/Needle (Disp)) USE ONE SYRINGE FOR B12 INJECTIONS Strength: 25G X 1" 3 ML 1 Each 11 Spironolactone 100 MG Oral Tablet (Aldactone) TAKE TWO TABLETS BY MOUTH IN THE MORNING AND TWO TABLETS BEFORE BEDTIME 120 Tablet 2 Sharps Container Use as directed for disposal of sharps. (Patient not taking: Reported on 06/02/2023) 1 Each 5 Pantoprazole Sodium 40 MG Oral Tablet Delayed Release (Protonix) Take 1 Tablet by mouth daily. 30 Tablet 3 dexAMETHasone 4 MG Oral Tablet (Decadron) 1 tablet twice a day for 3 days starting 1 day before thechemotherapy with Alimta 24 Tablet 1 Full Kit Nebulizer Set Patient needs tubing and mask (Patient not taking: Reported on 06/15/2023) 1Each 1 Potassium Chloride ER 20 MEQ Oral Tablet Extended Release Take 1 Tablet by mouth in the morning. dexAMETHasone 4 MG Oral Tablet (Decadron) Take 1 Tablet by mouth 2 times a day with morning and evening meals. 20 Tablet 0 fentaNYL 50 MCG/HR Transdermal Patch 72 Hour (Duragesic) Place 1 Patch over 72 hours topically on the skin every 3 days. 5 Patch 0 HYDROmorphone HCl 4 MG Oral Tablet (Dilaudid) Take 1 Tablet by mouth every 4 hours as needed for Pain, Severe. 42 Tablet 0 Current Facility-Administered Medications Medication Dose Route Frequency Provider Last Rate Last Admin hEParin 10,000 Units, bupivacaine (Sensorcaine) 30 mL, methylPREDNISolone sodium succ (SOLU-Medrol)125 mg, gentamicin 80 mg, sodium bicarbonate 2 mEq bladder instillation Intravesical Q Week Derek Monzon MD Given at 12/05/22 1155 Allergy: Review of patient's allergies indicates: Allergen Reactions Bupropion Other Reaction(s): suicidal ideation Duloxetine Other Reaction(s): suicidal ideations Other Allergy (See Comments) Anesthesia -- pseudocholinesterase deficiency caused "flatlining" during an emergency surgery Silver Other Reaction(s): Rash Bactrim [Sulfamethoxazole-Trimethoprim] yeast infection Adhesive Tape Rash tegaderm and all plastic tape Betadine [Povidone Iodine] Rash Clindamycin Yeast infection x 6 months Latex Levaquin [Levofloxacin] Rash Penicillins Trouble breathing, rash Sulfamethoxazole Other Reaction(s): YEAST INFECTION Trimethoprim Other Reaction(s): YEAST INFECTION OBJECTIVE: Ht 1.651 m (5' 5") | Wt 76.2 kg (168 lb) | BMI 27.96 kg/m | BSA 1.87 m GEN: NAD ASSESSMENT AND PLAN: (G89.3) Cancer related pain (primary encounter diagnosis) Plan: Ibuprofen 800 MG Oral Tablet (Motrin) -Meds per palliative (Z79.899) Medication management Plan: PAIN MANAGEMENT DRUG PANEL, URINE W/ INTERPRETATION Follow up as needed. No other complaints were offered at this time. Josue Blake MD documented in this encounter Nursing Notes * Huyen Jason, CARROTING MACHINE OPERATOR - 07/15/2023 3:11 PM EST The patient has been properly identified by confirmation of name and date of . Chief Complaint Patient presents with Hospital Follow-Up Pt here for hospital follow up documented in this encounter Plan of Treatment Upcoming Encounters Date Type Department Care Team (Late st Contact Info) Description 07/20/2023 11:00 AM EST Telemedicine [facility] [address] [place] [address] Estelle Davis PA-C [address] [place] [address] Nenita Cantu [address] [place] [address] 07/21/2023 10:00 AM EST Office Visit Hematology/Oncology [facility] [address] [facility] [place] [address] Richard David MD [address] [facility] [place] [address] 07/28/2023 10:30 AM EST Telemedicine Palliative Medicine, [facility] [address] [facility] 5th [place] [address] Becky Dial MD [address] [place] [address] 11/02/2023 12:00 PM EDT Office Visit Family Practice [facility] [address] [address] Josue Blake MD [address] [place] [address] Pending Results Name Type Priority Associated Diagnoses Date /Time PAIN MANAGEMENT DRUG PANEL, URINE W/ INTERPRETATION Lab Routine Medication management 07/15/2023 3:22 PM EST Health Maintenance Due Date Last Done Comments [...] this encounter Medical Devices Implanted Type Area Sr. Director Device Identifier Shelf Expiration Date Model / Serial / Lot Desara One Single Incision Sling System Implanted:Qty: 1 on 07/11/2022 by Derek Monzon MD at OR [facility] [employer] 10/17/2023 [id number] / / [id number] Port Implant W/8f Poly Cath - [id number] Implanted:Qty: 1 on 10/27/2022 at [facility] [employer] [facility] [facility] [id number] 10/27/2023 [id number] / / [id number] Clip Padlock Pro Select - [id number] Implanted:Qty: 1 on 05/13/2023 by Destin Zhong MD at OR [facility] [employer] [facility] [id number] 03/05/2026 [id number] / / [id number] documented as of this encounter Visit Diagnoses Diagnosis Cancer related pain- Primary Neoplasm related pain (acute) (chronic) Medication management Encounter for long-term (current) use of other medications documented in this encounter Advance Directives Latest [...] the patient have Health Care Power of Water Taxi Operator? No Code Status History Code Status Date Activated Date Inactivated Comments Full Code 07/11/2022 8:35 AM 07/11/2022 3:33 PM This order reflects the patients wishes and were consensually agreed upon. Question Answer Comments Discussion of Advance Directives occurred with: Patient Does the patient have a Living Will? No Does the patient have Health Care Power of Water Taxi Operator? No Care Teams Chief Architect Relationship Specialty Start Date End Date Josue Blake MD [address] [place] [address] PCP - General Family Medicine 02/06/22 documented as of this encounter
--- OUTSIDE RECORDS SUMMARY | 2023-07-18 07:50 | External Medical Summary | Summary of Care ---
Author Name Unknown Organization [facility] Address [address] [place] [address] Phone [phone] Care Team Providers Care Sap Business Objects Developer Name Role Phone Josue Blake MD Primary Care Provider [phone] Reason for Visit * Reason Onset Date Comments Medication Refill 07/14/2023 Encounter Details Date Type Department Care Team (Late st Contact Info) Description 07/14/2023 Refill Care Coordination and Integration [address] [place], [place] [phone] Megha Ray RN [address], [place] [phone] Allergies Active Allergy Reactions Criticality Noted Date [...] as of this encounter (statuses as of 07/14/2023) Medications Medication Sig Dispensed Refills Start Date End Date Status BD Luer-Tamar Syringe 25G X 1" 3 ML (Syringe/Needle (Disp)) USE ONE SYRINGE FOR B12 INJECTIONS Strength: 25G X 1" 3 ML 1 Each 11 09/16/2022 Active Spironolactone 100 MG Oral Tablet (Aldactone) TAKE TWO TABLETS BY MOUTH IN THE MORNING AND TWO TABLETS BEFORE BEDTIME 120 Tablet 2 01/09/2023 Active Umeclidinium [place] 62.5 MCG/ACT Inhalation Aerosol Powder Breath Activated (INCRUSE ellipta)Indications :COPD, severity to be determined (HCC) Inhale 1 Puff by mouth in the morning. 30 Each 5 01/29/2023 Active Alum & Mag Hydroxide-Simeth (MAGIC [...] 03/25/2023 Active Benzonatate 100 MG Oral Capsule (Tesmandie Negro) Take 1 Capsule by mouth 3 times [...] evening meals. 20 Tablet 0 06/17/2023 Active Ibuprofen 800 MG Oral Tablet (Motrin)Indications :Cancer related pain Take 1 Tablet by mouth every 8 hours as needed for Pain, Moderate. 60 Tablet 0 06/30/2023 Active Ondansetron HCl 8 MG Oral Tablet (Zofran)Indications :Primary adenocarcinoma of upper lobe of right lung (HCC) Take 1 Tablet by mouth every 8 hours as needed for Nausea. 30 Tablet 1 07/01/2023 Active fentaNYL 50 MCG/HR Transdermal Patch 72 Hour (Duragesic)Indicati ons:Cancer related pain Place 1 Patch over 72 hours topically on the skin every 3 days. 5 Patch 0 07/07/2023 Active HYDROmorphone HCl 4 MG Oral Tablet (Dilaudid)Indicatio ns:Cancer related pain Take 1 Tablet by mouth every 4 hours as needed for Pain, Severe. 30 Tablet 0 07/07/2023 Active Promethazine HCl 25 MG Oral Tablet (Phenergan) Take 1 Tablet by mouth every 6 hours as needed for Nausea. or vomiting 12 Tablet 0 07/14/2023 Active Hospital, Clinic, or Other Facility Administered Medication Ordered Dose Route Frequency Start Date End Date Status hEParin 10,000 Units, bupivacaine (Sensorcaine) 30 mL, methylPREDNISolone sodium succ (SOLU-Medrol) 125 mg, gentamicin 80 mg, sodium bicarbonate 2 mEq bladder instillationIndications:Inter stitial cystitis IS QWEEK 08/19/2022 Active documented as of this encounter (statuses as of 07/14/2023) Active Problems Problem Noted Date Diagnosed Date [...] as of this encounter (statuses as of 07/14/2023) Resolved Problems Problem Noted Date Diagnosed Date [...] as of this encounter (statuses as of 07/14/2023) Immunizations Name Administration Dates Next Due TDAP [...] No 04/28/2023 documented as of this encounter Plan of Treatment Upcoming Encounters Date Type Department Care Team (Late st Contact Info) Description 07/15/2023 2:00 PM EST Office Visit Palliative Medicine [facility] [address] [facility] [place] [address] Becky Dial MD [address] [facility] [place] [address] 07/15/2023 3:20 PM EST Office Visit Family Practice [facility] [address] [place] [address] Josue Blake MD [address] [place] [address] 07/20/2023 11:00 AM EST Telemedicine [facility] [place] [address] [place] [address] Estelle Davis PA-C [address] [place] [address] Nenita Cantu, [facility] [address] [place] [address] 07/21/2023 10:00 AM EST Office Visit Hematology/Oncology [facility] [address] [facility] [address] Richard David MD [address] [facility] [place] [address] 07/28/2023 10:30 AM EST Telemedicine Palliative Medicine, [facility] [address] [facility] 5th [place] [address] Becky Dial MD [address] [place] [address] 11/02/2023 12:00 PM EDT Office Visit Family [facility] [address] [place] [address] Josue Blake MD [address] [place] [address] Health Maintenance Due Date Last Done Comments [...] this encounter Medical Devices Implanted Type Area Lens Mounter Device Identifier Shelf Expiration Date Model / Serial / Lot Desara One Single Incision Sling System Implanted:Qty: 1 on 07/11/2022 by Derek Monzon MD at OR [facility] [employer] 10/17/2023 [id number] / / [id number] Port Implant W/8f Poly Cath - [id number] Implanted:Qty: 1 on 10/27/2022 at [facility] [facility] PERIPHERAL VASC[employer] [id number] 10/27/2023 [id number] / / [id number] Clip Padlock Pro Select - [id number] Implanted:Qty: 1 on 05/13/2023 by Destin Zhong MD at OR [facility] [id number] 03/05/2026 [id number] / / [id number] documented as of this encounter Advance Directives [...] the patient have Health Care Power of Strategy Director? No Code Status History Code Status Date Activated Date Inactivated Comments Full Code 07/11/2022 8:35 AM 07/11/2022 3:33 PM This order reflects the patients wishes and were consensually agreed upon. Question Answer Comments Discussion of Advance Directives occurred with: Patient Does the patient have a Living Will? No Does the patient have Health Care Power of Strategy Director? No Care Teams Sap Business Objects Developer Relationship Specialty Start Date End Date Josue Blake MD 132 [facility] [place] [address] PCP - General Family Medicine 02/06/22 documented as of this encounter
--- OUTSIDE RECORDS SUMMARY | 2023-07-18 07:50 | External Medical Summary | Summary of Care ---
Author Name Unknown Organization [facility] Address [address] [place] [address] Phone [phone] Care Team Providers Care Crop Farmers Name Role Phone Josue Blake MD Primary Care Provider [phone] Encounter Details Date Type Department Care Team (Late st Contact Info) Description 07/17/2023 Telephone Palliative Medicine, [facility] [address] [facility] 5th Floor [place], [place] [id number] Becky Dial MD [address] [place], [place] [id number] Allergies Active Allergy Reactions Criticality Noted Date [...] as of this encounter (statuses as of 07/17/2023) Medications Medication Sig Dispensed Refills Start Date End Date Status BD Luer-Tamar Syringe 25G X 1" 3 ML (Syringe/Needle (Disp)) USE ONE SYRINGE FOR B12 INJECTIONS Strength: 25G X 1" 3 ML 1 Each 09/17/19 23 Active Spironolactone 100 MG Oral Tablet (Aldactone) TAKE TWO TABLETS BY MOUTH IN THE MORNING AND TWO TABLETS BEFORE BEDTIME 120 Tablet 2 01/10/20 23 Active Umeclidinium Niotaze 62.5 MCG/ACT Inhalation Aerosol Powder Breath Activated [...] evening. 24 Suppository 0 02/05/20 23 Active Polyethylene Glycol 3350 17 GM/SCOOP Oral [...] (hiccups). 30 Tablet 0 03/24/20 23 Active dexAMETHasone 4 MG Oral Tablet (Decadron)Indicati ons:Primary adenocarcinoma of upper lobe of right lung (HCC),Metastasis to mediastinal lymph node (HCC),Metastasis to bone (HCC),Metastasis to brain (HCC) 1 tablet twice a day for 3 days starting 1 day before the chemotherapy with Alimta 24 Tablet 1 03/25/20 23 Active Benzonatate 100 MG Oral Capsule (Tessalon Perlearnest) Take 1 Capsule by mouth 3 [...] before bedtime. 120 mL 1 06/10/20 Active guaiFENesin ER 600 MG Oral Tablet Extended Release 12 Hour (Mucinex) Take 1 Tablet by mouth 2 times a day as needed for Congestion. Take with plenty of water. Do not cut, crush or chew 40 Tablet 2 06/12/20 Active Potassium Chloride ER 20 MEQ Oral [...] meals. 20 Tablet 0 06/17/20 23 Active Ondansetron HCl 8 MG Oral Tablet (Zofran)Indication s:Primary adenocarcinoma of upper lobe of right lung (HCC) Take 1 Tablet by mouth every 8 hours as needed for Nausea. 30 Tablet 1 07/01/19 24 Active Promethazine HCl 25 MG Oral Tablet (Phenergan) Take 1 Tablet by mouth every 6 hours as needed for Nausea. or vomiting 12 Tablet 0 07/14/19 24 Active HYDROmorphone HCl 4 MG Oral Tablet (Dilaudid)Indicati ons:Cancer related pain Take 1 Tablet by mouth every 4 hours as needed for Pain, Severe. 42 Tablet 0 07/15/19 24 Active Ibuprofen 800 MG Oral Tablet (Motrin)Indication s:Cancer related pain Take 1 Tablet by mouth every 8 hours as needed for Pain, Moderate. 60 Tablet 3 07/15/19 24 Active fentaNYL 50 MCG/HR Transdermal Patch 72 Hour (Duragesic)Indicat ions:Cancer related pain Place 1 Patch over 72 hours topically on the skin every 3 days. 5 Patch 0 07/07/19 24 024 Discontinued Hospital, Clinic, or Other Facility Administered Medication Ordered Dose Route Frequency Start Date End Date Status hEParin 10,000 Units, bupivacaine (Sensorcaine) 30 mL, methylPREDNISolone sodium succ (SOLU-Medrol) 125 mg, gentamicin 80 mg, sodium bicarbonate 2 mEq bladder instillationIndications:Inter stitial cystitis IS QWEEK 08/19/2022 Active documented as of this encounter (statuses as of 07/17/2023) Active Problems Problem Noted Date Diagnosed Date [...] as of this encounter (statuses as of 07/17/2023) Resolved Problems Problem Noted Date Diagnosed Date [...] as of this encounter (statuses as of 07/17/2023) Immunizations Name Administration Dates Next Due TDAP [...] encounter Miscellaneous Notes * Telephone Encounter - Becky Dial MD - 07/17/2023 10:33 AM EST Tried to update her fentanyl to 100mcg/hr which is what we are doing with a combo of all her 50 / 25 dose patches but cannot add this as a historical med. Current pain regimen Fentanyl 100mcg/hr Dilaudid q4h PRN Ibuprofen Discussed case w/Dr Charlton from [facility] Onc as well Becky Dial MD Palliative Medicine Physician [facility] Office: [phone] 07/17/2023 documented in this encounter Plan of Treatment Upcoming Encounters Date Type Department Care Team (Late st Contact Info) Description 07/20/2023 11:00 AM EST Telemedicine [facility] [address] [place] [address] Estelle Davis PA-C [address] [place] [address] Nenita Cantu, [facility] Machining Supervisor [address] [place] [address] [place] [address] 07/21/2023 10:00 AM EST Office Visit Hematology/Oncology [facility] [place] [address] [facility] [place] [address] Richard David MD [address] [facility] [place] [address] 07/28/2023 10:30 AM EST Telemedicine Palliative Medicine, [facility] [address] [facility] 5th [place] [address] Becky Dial MD [address] [place] [address] 11/02/2023 12:00 PM EDT Office Visit Family [facility] [address] [place] [address] Josue Blake MD [address] [place] [address] Health Maintenance Due Date Last Done Comments [...] this encounter Medical Devices Implanted Type Area Ict Account Manager Device Identifier Shelf Expiration Date Model / Serial / Lot Desara One Single Incision Sling System Implanted:Qty: 1 on 07/11/2022 by Derek Monzon MD at OR [facility] [employer]vis [employer] 10/17/2023 [id number] / / [id number] Port Implant W/8f Poly Cath - [id number] Implanted:Qty: 1 on 10/27/2022 at [facility] CR BARD : PERIPHERAL VASCULAR [id number] 10/27/2023 [id number] / / [id number] Clip Padlock Pro Select - [id number] Implanted:Qty: 1 on 05/13/2023 by Destin Zhong MD at OR [facility] [id number] 03/05/2026 [id number] / / [id number] documented as of this encounter Visit Diagnoses [...] patient have Health Care Power of Clinical Services Director? No Code Status History Code Status Date Activated Date Inactivated Comments Full Code 07/11/2022 8:35 AM 07/11/2022 3:33 PM This order reflects the patients wishes and were consensually agreed upon. Question Answer Comments Discussion of Advance Directives occurred with: Patient Does the patient have a Living Will? No Does the patient have Health Care Power of Clinical Services Director? No Care Teams Crop Farmers Relationship Specialty Start Date End Date Josue Blake MD [address] [place] [address] PCP - General Family Medicine 02/06/22 documented as of this encounter
--- OUTSIDE RECORDS SUMMARY | 2023-07-18 07:50 | External Medical Summary | Summary of Care ---
Author Name Unknown Organization [facility] Address [address] [place] [address] Phone [phone] Care Team Providers Care Electrician Deck Name Role Phone Benji Gabriel MD Primary Care Provider [phone] Reason for Visit * Reason Onset Date Comments Medication Refill 07/13/2023 Encounter Details Date Type Department Care Team (Late st Contact Info) Description 07/13/2023 Refill [facility] Practice [facility] [address] [facility] [place] [id number] Benji Gabriel MD [address] [facility] [place] [place] [address] Primary adenocarcinoma of upper lobe of [...] 1" 3 ML 1 Each 3 Active Spironolactone 100 MG Oral Tablet (Aldactone) TAKE TWO TABLETS BY MOUTH IN THE MORNING AND TWO TABLETS BEFORE BEDTIME 120 Tablet 2 3 Active Umeclidinium [place] 62.5 MCG/ACT Inhalation Aerosol Powder Breath Activated [...] 3 Active Benzonatate 100 MG Oral Capsule (Tesmandie [...] Pain, Severe. 30 Tablet 0 4 Active Promethazine HCl 25 MG Oral Tablet (Phenergan) Take 1 Tablet by mouth every 6 hours as needed for Nausea. or vomiting 12 Tablet 0 4 Active Promethazine HCl 25 MG Oral Tablet (Phenergan) Take 1 Tablet by mouth every 6 hours as needed for Nausea. or vomiting 12 Tablet 0 3 07/13/19 24 Discontinu ed(Refill) Hospital, Clinic, or Other [...] Telephone Encounter - Benji Gabriel MD - 07/14/2023 9:59 AM ESTSigned Prescriptions: Disp Refills Promethazine HCl 25 MG Oral Tablet (Phener*12 Tab*0 Sig: Take 1 Tablet by mouth every 6 hours as needed for Nausea. or vomiting Authorizing Provider: BENJI GABRIEL Refused Prescriptions: Disp Refills Ondansetron HCl 8 MG Oral Tablet (Zofran) 30 Tab*1 Sig: Take 1 Tablet by mouth every 8 hours as ne eded for Nausea. Refused By: CORBIN PATEL Reason for Refusal: Too soon * Telephone Encounter - Corbin Patel, [facility] - 07/14/2023 9:38 AM ESTPending Prescriptions: Disp Refills Promethazine HCl 25 MG Oral Tablet (Phener*12 Tab*0 Sig: Take 1 Tablet by mouth every 6 hours as needed for Nausea. or vomiting Refused Prescriptions: Disp Refills Ondansetron HCl 8 MG Oral Tablet (Zofran) 30 Tab*1 Sig: Take 1 Tablet by mouth every 8 hours as needed for Nausea. Refused By: CORBIN PATEL Reason for Refusal: Too soon * Telephone Encounter - Corbin Patel RP - 07/14/2023 9:36 AM EST [facility] is currently not authorized to approve refills for the pended medication(s) per refill protocol. Please approve if appropriate. Pending Prescriptions: Disp Refills Promethazine HCl 25 MG Oral Tablet (Phene*12 Tab*0 Sig: Take 1 Tablet by mouth every 6 hours as needed for Nausea. or vomiting Refused Prescriptions: Disp Refills Ondansetron HCl 8 MG Oral Tablet (Zofran) 30 Tab*1 Sig: Take 1 Tablet by mouth every 8 hours as needed for Nausea. Refused By: CORBIN PATEL Reason for Refusal: Too soon Last Visit: 05/04/2023 (in office), Visit date not found (telemedicine) Next Visit: 07/15/2023 If no future appointments scheduled, and last appointment is greater than a year ago, please schedule patient for a follow-up appointment Last date the medication was ordered: 10/15/22 Is this request for a controlled substance?No [...] 2:00 PM EST Office Visit Palliative Medicine [facility] [address] [place] [address] Becky Dial MD [address] [place] [address] 07/15/2023 3:20 PM EST Office Visit Family Practice [facility] [address] [facility] [place] [address] Benji aGbriel MD [address] [facility] [place] [address] 07/20/2023 11:00 AM EST Telemedicine [facility] [place] [address] [place] [address] Estelle Davis PA-C [address] [place] [address] Nenita Cantu, [address] [place] [address] 07/21/2023 10:00 AM EST Office Visit Hematology/Oncology [facility] [address] [place] [address] Richard David MD [address] [facility] [place] [address] 07/28/2023 10:30 AM EST Telemedicine Palliative Medicine, [facility] [address] [facility] 5th Floor [place] [address] Becky Dial MD [address] [facility] [place] [address] 11/02/2023 12:00 PM EDT Office Visit Family [facility] [address] [place] [address] Benji Gabriel MD [address] [place] [address] Health Maintenance Due Date Last Done Comments [...] encounter Medical Devices Implanted Type Area Retail Loan Officer Device Identifier Shelf Expiration Date Model / Serial / Lot Desara One Single Incision Sling System Implanted:Qty: 1 on 07/11/2022 by Derek Monzon MD at OR [facility] [employer] 10/17/2023 [id number] / / [id number] Port Implant W/8f Poly Cath - [id number] Implanted:Qty: 1 on 10/27/2022 at [facility] CR [facility] : PERIPHERAL VASCULAR [id number] 10/27/2023 [id number] / / [id number] Clip Padlock Pro Select - [id number] Implanted:Qty: 1 on 05/13/2023 by Destin Zhong MD at OR [facility] [id number] 03/05/2026 [id number] / / [id number] documented as of this encounter Visit Diagnoses [...] the patient have Health Care Power of Curriculum Designer? No Code Status History Code Status Date Activated Date Inactivated Comments Full Code 07/11/2022 8:35 AM 07/11/2022 3:33 PM This order reflects the patients wishes and were consensually agreed upon. Question Answer Comments Discussion of Advance Directives occurred with: Patient Does the patient have a Living Will? No Does the patient have Health Care Power of Curriculum Designer? No Care Teams Electrician Deck Relationship Specialty Start Date End Date Benji Gabriel MD [address] [facility] [place] [address] PCP - General Family Medicine 02/06/22 documented as of this encounter
--- OUTSIDE RECORDS SUMMARY | 2023-07-18 07:50 | External Medical Summary | Summary of Care ---
Author Name Unknown Organization [facility] Address [address] [place] [address] Phone [phone] Care Team Providers Care Traffic Technician Name Role Phone Josue Blake MD Primary Care Provider [phone] Reason for Visit * Reason Comments Follow Up Encounter Details Date Type Department Care Team (Late st Contact Info) Description 07/15/2023 2:00 PM EST Office Visit Palliative Medicine [facility] [address] [place] [address] Becky Dial MD [address] [place] [address] Cancer related pain*; Medication management Allergies Active [...] as of this encounter (statuses as of 07/15/2023) Medications Medication Sig Dispensed Refills Start Date End Date Status BD Luer-Tamar Syringe 25G X 1" 3 ML (Syringe/Needle (Disp)) USE ONE SYRINGE FOR B12 INJECTIONS Strength: 25G X 1" 3 ML 1 Each 3 Active Spironolactone 100 MG Oral Tablet (Aldactone) TAKE TWO TABLETS BY MOUTH IN THE MORNING AND TWO TABLETS BEFORE BEDTIME 120 Tablet 2 3 Active Umeclidinium [place] 62.5 MCG/ACT Inhalation Aerosol Powder Breath Activated [...] Active Benzonatate 100 MG Oral Capsule (Tessalcynthia Negro) Take 1 Capsule by mouth 3 [...] Pain, Severe. 42 Tablet 0 4 Active HYDROmorphone HCl 4 MG Oral Tablet (Dilaudid)Indicatio ns:Cancer related pain Take 1 Tablet by mouth every 4 hours as needed for Pain, Severe. 30 Tablet 0 4 07/15/19 24 Discontinu ed(Refill) Hospital, Clinic, or Other Facility Administered Medication Ordered Dose Route Frequency Start Date End Date Status hEParin 10,000 Units, bupivacaine (Sensorcaine) 30 mL, methylPREDNISolone sodium succ (SOLU-Medrol) 125 mg, gentamicin 80 mg, sodium bicarbonate 2 mEq bladder instillationIndications:Inter stitial cystitis IS QWEEK 08/19/2022 Active documented as of this encounter (statuses as of 07/15/2023) Active Problems Problem Noted Date Diagnosed Date [...] as of this encounter (statuses as of 07/15/2023) Resolved Problems Problem Noted Date Diagnosed Date [...] as of this encounter (statuses as of 07/15/2023) Immunizations Name Administration Dates Next Due TDAP (age 10 and older)(Boostrix) 08/27/2017 documented as of this encounter Social History Tobacco Use Types Packs/Day Years Used Date Smoking Tobacco: Every Day Cigarettes 0.3 33 Smokeless Tobacco: Never Tobacco Cessation:Ready to Q uit: Not Asked; Counseling Given: Not Answered Comments:Patient reports she recently began smoking again. [...] Sign Reading Time Taken Comments Blood Pressure 116/79 07/15/2023 1:50 PM EST Pulse 103 07/15/2023 1:50 PM EST Temperature 36.3 C (97.4 F) 07/15/2023 1:50 PM ES T Respiratory Rate 16 07/15/2023 1:50 PM EST Oxygen Saturation 91% 07/15/2023 1:50 PM EST Inhaled Oxygen Concentration - - Weight 76.6 kg (168 lb 12.8 oz) 07/15/2023 1:50 PM EST Height - - Body Mass Index 28.09 05/13/2023 1:56 PM EST documented in this [...] * Patient Instructions* Rebecca Schaefer LPN - 07/15/2023 1:42 PM EST Our Palliative Medicine Clinic is [...] needed. You can contact our office at [phone], which is our clinic in [place], or you can message us on [employer]. If you have an emergency outside of these hours, we recommend calling your primary care clinic, Oncology office, or going to the ER if you have a medical emergency. documented in this encounter Progress Notes * Becky Dial MD - 07/15/2023 2:00 PM EST Palliative Medicine Outpatient Progress Note [facility] Palliative Medicine Outreach [address] [place] [address] Name: Ritchie Lowe Date: 07/15/2023 HPI: Ritchie Lowe is a 43 year old female with metastatic lung CA, to bone and brain, seen in follow-up for goals of care and symptom management. Started radiation to pelvis - plan is for 33 sessions (though note says 10), hurt a lot after the first tx. Has been hurting even more and has been throwing up after treatment. Took 4 days off. Plan is to start chemo again tomorrow, and go for radiation. Goes at 11am. She is then getting a 2nd opinion by Dr David at Reviewed pain medications - Has enough fentanyl patches for 18 days (6 doses) if we switch to 100mcg/hr I asked her about comments we received from Radiation Oncology nurses and from Marissa Hickman NPabout patient not being safe, and about her . She explained her friend, Annia Wang, "caused a lot of drama", and "is homeless, she came to try to live with her and kick the out." She clearly states she feels safe at home. She says "My doesn't even take his own blood pressure pills, he wouldn't take my pain meds. He works for [employer] so would be drug tested all the time." She and her have moved to stay in a hotel so she does not have to go up the steps. ROS: See HPI. All others negative. Past [...] y Does Patient have a Healthcare Agent? y Advanced Care Planning (see ACP Tab): AD in EMR: no POLST in EMR: no Examination: BP 116/79 | Pulse 103 | Temp 36.3 C (97.4 F) | Resp 16 | Wt 76.6 kg (168 lb 12.8 oz) | SpO2 91%| BMI 28.09 kg/m | BSA 1.87 m Constitutional: no acute distress, chronically ill HENT: normocephalic, atraumatic. Eyes: anicteric, sclera and conjunctiva normal. Neck: no stridor Chest: normal respiratory effort Abdominal: nondistended Extremities: no edema Data Review: External notes reviewed: KEE notes reviewed Lab / Imaging Results: Cr 0.7, normal History obtained from: pt Discussion with other team members: no ASSESSMENT/PLAN: Ritchie Lowe is a 43 year old female seen in follow-up for goals of care and pain and symptom management. Stage IV Lung CA -Will be getting chemo and Itx tomorrow at [facility] - Continue radiation as well - 2nd opinion next week w/Dr David Cancer related pain - Increase fentanyl patch to 100mcg/hr - Refill not due until around 18 days from now - Dilaudid refill sent 4mg q4h PRN Safety at home - She reports she is safe at home, see convo above, does not want her friend involved in her care 4. Generalized weakness - can walk, is in WC today though - Will send HH referral again, does not want [facility] Follow up in 2 weeks I spent a total of 42 minutes on the date of service in preparation, delivery, and documentation ofthe care provided to Ritchie Lowe. Becky Dial MD Palliative Medicine Physician [facility] Office: [phone] 07/15/2023 * Rebecca Schaefer LPN - 07/15/2023 1:45 PM EST Return Palliative Visit Pain: 8.5-9/10 in hips/pelvis Did pill count: Fentanyl patches: #14 of the 25mcg patches Fentanyl patches: #4 of the 50mcg patches Dilaudid: has some in weekly pill materials planner but none in bottle-thinks only 1 days worth left Takes her dilaudid at 6am, 10am, 2pm, 6pm, 10pm, 2am Pain is worse around 8pm-then will take her 10pm dose and the pain will wake her up around 1am Has had 3 radiation treatments so far, and feels her pain has gotten worse since starting radiation documented in this encounter Plan of Treatment Upcoming Encounters Date Type Department Care Team (Late st Contact Info) Description 07/15/2023 3:20 PM EST Office Visit [facility] [address] [facility] [place] [address] Josue Blake MD [address] [facility] [place] [address] Arrived 07/20/2023 11:00 AM EST Telemedicine [facility] [place] [address] [place] [address] Estelle Davis PA-C [address] [place] [address] Nenita Cantu, [facility] [address] [place] [address] 07/21/2023 10:00 AM EST Office Visit Hematology/Oncology [facility] [address] [facility] [place] [address] Richard David MD [address] [facility] [place] [address] 07/28/2023 10:30 AM EST Telemedicine Palliative Medicine, [facility] [address] [facility] 5th [place] [address] Becky Dial MD 400 [place] [address] 11/02/2023 12:00 PM EDT Office Visit [facility] [address] [facility] [place] [address] Josue Blake MD 132 [facility] [address] Scheduled Orders Name Type Priority Associated Diagnoses Orde r Schedule PAIN MANAGEMENT DRUG PANEL, URINE W/ INTERPRETATION Lab Routine Medication management Expected: 07/15/2023, Expires: 07/15/2024 Health Maintenance Due Date Last Done Comments [...] this encounter Medical Devices Implanted Type Area Transplant Worker Device Identifier Shelf Expiration Date Model / Serial / Lot Desara One Single Incision Sling System Implanted:Qty: 1 on 07/11/2022 by Derek Monzon MD at OR [facility] [employer] 10/17/2023 [id number] / / [id number] Port Implant W/8f Poly Cath - [id number] Implanted:Qty: 1 on 10/27/2022 at [facility] CR BARD : PERIPHERAL VASCULAR [id number] 10/27/2023 [id number] / / [id number] Clip Padlock Pro Select - [id number] Implanted:Qty: 1 on 05/13/2023 by Destin Zhong MD at OR [facility] [id number] 03/05/2026 [id number] / / [id number] documented as of this encounter Visit Diagnoses [...] the patient have Health Care Power of Fleet Technician? No Code Status History Code Status Date Activated Date Inactivated Comments Full Code 07/11/2022 8:35 AM 07/11/2022 3:33 PM This order reflects the patients wishes and were consensually agreed upon. Question Answer Comments Discussion of Advance Directives occurred with: Patient Does the patient have a Living Will? No Does the patient have Health Care Power of Fleet Technician? No Care Teams Traffic Technician Relationship Specialty Start Date End Date Josue Blake MD [address] [facility] [place] [address] PCP - General Family Medicine 02/06/22 documented as of this encounter
--- OUTSIDE RECORDS SUMMARY | 2023-07-18 07:50 | External Medical Summary | Summary of Care ---
Author Name Unknown Organization [facility] Address [address] [place] [address] Phone [phone] Care Team Providers Care Crts Name Role Phone Josue Blake MD Primary Care Provider [phone] Reason for Visit * Reason Onset Date Comments Medical Records Request 07/15/2023 Encounter Details Date Type Department Care Team (Late st Contact Info) Description 07/15/2023 Telephone Family Practice [facility] [address] [facility] [place] [id number] Josue Blake MD [address] [facility] [place] [id number] Medical Records Request Allergies Active Allergy Reactions Criticality Noted Date [...] 1" 3 ML 1 Each 09/16/2022 Active Spironolactone 100 MG Oral Tablet (Aldactone) TAKE TWO TABLETS BY MOUTH IN THE MORNING AND TWO TABLETS BEFORE BEDTIME 120 Tablet 2 01/09/2023 Active Umeclidinium [place] 62.5 MCG/ACT Inhalation Aerosol Powder Breath [...] 05/04/2023 Food insecurity 12/08/2022 01/07/2023 Overview: Per [facility] Protocol Upper respiratory tract infection 11/12/2022 [...] encounter Miscellaneous Notes * Telephone Encounter - Vesna Barboza OSA - 07/15/2023 12:20 PM EST [facility] is requesting the records of [facility] for the the purpose of continuation of care. Forwarded to [facility]. documented in this encounter Plan of Treatment Upcoming Encounters Date Type Department Care Team (Late st Contact Info) Description 07/15/2023 2:00 PM EST Office Visit Palliative Medicine [facility] [address] [place] [address] Becky Dial MD [address] [place] [address] [place] [address] 07/15/2023 3:20 PM EST Office Visit Family Practice [facility] [address] [place] [address] Josue Blake MD [address] [place] [address] 07/20/2023 11:00 AM EST Telemedicine ising at Home, [address] [address] Estelle Davis PA-C [address] [place] [address] Nenita Cantu, [facility] [address] [place] [address] [place] [address] 07/21/2023 10:00 AM EST Office Visit Hematology/Oncology [facility] [address] [place] [address] Richard David MD [address] [place] [address] 07/28/2023 10:30 AM EST Telemedicine Palliative Medicine, [facility] [address] [facility] 5th [place] [address] Becky Dial MD [address] [place] [address] 11/02/2023 12:00 PM EDT Office Visit Family Practice [facility] [address] [place] [address] Josue Blake MD [address] [place] [address] Health Maintenance Due Date Last Done Comments [...] this encounter Medical Devices Implanted Type Area Car Sander Device Identifier Shelf Expiration Date Model / Serial / Lot Desara One Single Incision Sling System Implanted:Qty: 1 on 07/11/2022 by Derek Monzon MD at OR [facility] [employer] 10/17/2023 [id number] / / [id number] Port Implant W/8f Poly Cath - [id number] Implanted:Qty: 1 on 10/27/2022 at [facility] B[employer] : PERIPHERAL VASCULAR [id number] 10/27/2023 [id number] / / [id number] Clip Padlock Pro Select - [id number] Implanted:Qty: 1 on 05/13/2023 by Destin Zhong MD at OR [facility] [employer] [id number] 03/05/2026 [id number] / / [id number] documented as of this encounter Advance Directives [...] the patient have Health Care Power of Hat Brusher Machine? No Code Status History Code Status Date Activated Date Inactivated Comments Full Code 07/11/2022 8:35 AM 07/11/2022 3:33 PM This order reflects the patients wishes and were consensually agreed upon. Question Answer Comments Discussion of Advance Directives occurred with: Patient Does the patient have a Living Will? No Does the patient have Health Care Power of Hat Brusher Machine? No Care Teams Crts Relationship Specialty Start Date End Date Josue Blake MD [address] [place] [address] PCP - General Family Medicine 02/06/22 documented as of this encounter
--- OUTSIDE RECORDS SUMMARY | 2023-07-18 07:51 | External Medical Summary | Summary of Care ---
Author Name Unknown Organization [facility] Address [address] [place] [address] Phone [phone] Care Team Providers Care Public Health Program Manager Name Role Phone Josue Blake MD Primary Care Provider [phone] Reason for Visit * Reason Onset Date Comments Medication Refill 07/13/2023 Encounter Details Date Type Department Care Team (Late st Contact Info) Description 07/13/2023 Refill Palliative Medicine, [address] [place], [place] [id number] Becky Dial MD [address] [place] [address] Cancer related pain Allergies Active Allergy [...] as of this encounter (statuses as of 07/13/2023) Medications Medication Sig Dispensed Refills Start Date [...] BEDTIME 120 Tablet 2 01/09/2023 Active Umeclidinium [place] 62.5 MCG/ACT Inhalation Aerosol Powder Breath Activated [...] Pain, Severe. 30 Tablet 0 07/07/2023 Active Hospital, Clinic, or Other Facility Administered Medication Ordered Dose Route Frequency Start Date End Date Status hEParin 10,000 Units, bupivacaine (Sensorcaine) 30 mL, methylPREDNISolone sodium succ (SOLU-Medrol) 125 mg, gentamicin 80 mg, sodium bicarbonate 2 mEq bladder instillationIndications:Inter stitial cystitis IS QWEEK 08/19/2022 Active documented as of this encounter (statuses as of 07/13/2023) Active Problems Problem Noted Date Diagnosed Date [...] as of this encounter (statuses as of 07/13/2023) Resolved Problems Problem Noted Date Diagnosed Date [...] as of this encounter (statuses as of 07/13/2023) Immunizations Name Administration Dates Next Due TDAP [...] Telephone Encounter - Rebecca Schaefer LPN - 07/13/2023 7:35 AM ESTPending Prescriptions: Disp Refills HYDROmorphone HCl 4 MG Oral Tablet (Dilaud*30 Tab*0 Sig: Take 1 Tablet by mouth every 4 hours as needed for Pain, Severe. * Telephone Encounter - Rebecca Schaefer LPN - 07/13/2023 7:33 AM EST I have reviewed the patients controlled substance dispensing history in the Prescription Drug Monitoring Program in compliance with the [facility] regulations before prescribing a controlled substance. Were any discrepancies found:no Last prescribed 07/07 Last Filled 07/07 RX Due 07/15 documented in this encounter Plan of Treatment Upcoming Encounters Date Type Department Care Team (Late st Contact Info) Description 07/15/2023 2:00 PM EST Office Visit Palliative Medicine [facility] [address] [facility] [address] Becky Dial MD [address] [facility] [place] [address] 07/15/2023 3:20 PM EST Office Visit Family [facility] [address] [facility] [place] [address] Josue Blake MD [address] [facility] [place] [address] 07/20/2023 11:00 AM EST Telemedicine [facility] [address] [place] [address] Estelle Davis PA-C [address] [place] [address] Nenita Cantu [address] [place] [address] 07/21/2023 10:00 AM EST Office Visit Hematology/Oncology [facility] [address] [place] [address] Richard David MD [address] [facility] [place] [address] 07/28/2023 10:30 AM EST Telemedicine Palliative Medicine, [facility] [address] [facility] 5[address] [place] [address] Becky Dial MD [address] [facility] [address] 11/02/2023 12:00 PM EDT Office Visit [facility] [address] [facility] [place] [address] Josue Blake MD [address] [place] [address] Health Maintenance Due Date Last Done Comments [...] this encounter Medical Devices Implanted Type Area Bond Clerk Device Identifier Shelf Expiration Date Model / Serial / Lot Desara One Single Incision Sling System Implanted:Qty: 1 on 07/11/2022 by Derek Monzon MD at OR [facility] [employer] 10/17/2023 [id number] / / [id number] Port Implant W/8f Poly Cath - [id number] Implanted:Qty: 1 on 10/27/2022 at [facility] [employer]ARD : PERIPHERAL VASCULAR [id number] 10/27/2023 [id number] / / [id number] Clip Padlock Pro Select - [id number] Implanted:Qty: 1 on 05/13/2023 by Destin Zhong MD at OR [facility] [employer] [id number] 03/05/2026 [id number] / / [id number] documented as of this encounter Visit Diagnoses [...] the patient have Health Care Power of Senior Marketing Specialist? No Code Status History Code Status Date Activated Date Inactivated Comments Full Code 07/11/2022 8:35 AM 07/11/2022 3:33 PM This order reflects the patients wishes and were consensually agreed upon. Question Answer Comments Discussion of Advance Directives occurred with: Patient Does the patient have a Living Will? No Does the patient have Health Care Power of Senior Marketing Specialist? No Care Teams Public Health Program Manager Relationship Specialty Start Date End Date Josue Blake MD [address] [place] [address] PCP - General Family Medicine 02/06/22 documented as of this encounter
--- OUTSIDE RECORDS SUMMARY | 2023-07-18 07:51 | External Medical Summary | Summary of Care ---
Author Name Unknown Organization [facility] Address [address] [place] [address] Phone [phone] Care Team Providers Care Dietetic Intern Name Role Phone Josue Blake MD Primary Care Provider [phone] Encounter Details Date Type Department Care Team (Late st Contact Info) Description 07/10/2023 Telephone Palliative Medicine, [facility] [address] [facility] 5th Floor [place], [place] [phone] Becky Dial MD [address] [place], [place] [phone] Allergies Active Allergy Reactions Criticality Noted Date [...] as of this encounter (statuses as of 07/10/2023) Medications Medication Sig Dispensed Refills Start Date [...] BEDTIME 120 Tablet 2 01/09/2023 Active Umeclidinium [place] 62.5 MCG/ACT Inhalation Aerosol Powder Breath Activated [...] as of this encounter (statuses as of 07/10/2023) Active Problems Problem Noted Date Diagnosed Date [...] as of this encounter (statuses as of 07/10/2023) Resolved Problems Problem Noted Date Diagnosed Date [...] as of this encounter (statuses as of 07/10/2023) Immunizations Name Administration Dates Next Due TDAP [...] Telephone Encounter - Becky Dial MD - 07/10/2023 3:51 PM EST Spoke to Hospitalist at [place], she was admitted 07/07 to 07/10. They will increase her fentanyl patch to 75mcg/hr and give her enough to get her to our appt Wed Becky Dial MD Palliative Medicine Physician [facility] Office: [phone] 07/10/2023 documented in this encounter Plan of Treatment Upcoming Encounters Date Type Department Care Team (Late st Contact Info) Description 07/15/2023 2:00 PM EST Office Visit Palliative Medicine [facility] [address] [place] [address] Becky Dial MD [address] [place], [place] [address] [address] 07/15/2023 3:20 PM EST Office Visit Family Practice [facility] [address] [place] [address] Josue Blake MD [address] [place] [address] 07/20/2023 11:[address] [facility] [place] [address] [place] [address] Estelle Davis PA-C [address] [place] [address] Nenita Cantu, [address] [place] [address] 07/28/2023 10:30 AM EST Telemedicine Palliative Medicine, [facility] [address] [facility] 5th [place] [address] Becky Dial MD [address] [place] [address] 11/02/2023 12:00 PM EDT Office Visit Family Practice [facility] [address] [place] [address] Josue Blake MD [address] [place] [address] Health Maintenance Due Date Last Done Comments [...] this encounter Medical Devices Implanted Type Area Cold Roller Device Identifier Shelf Expiration Date Model / Serial / Lot Desara One Single Incision Sling System Implanted:Qty: 1 on 07/11/2022 by Derek Monzon MD at OR [facility] [employer] 10/17/2023 [id number] / / [id number] Port Implant W/8f Poly Cath - [id number] Implanted:Qty: 1 on 10/27/2022 at [facility] CR [employer] : PERIPHERAL VASCULAR [id number] 10/27/2023 [id number] / / [id number] Clip Padlock Pro Select - [id number] Implanted:Qty: 1 on 05/13/2023 by Destin Zhong MD at OR [facility] [id number] 03/05/2026 [id number] / / [id number] documented as of this encounter Advance Directives [...] the patient have Health Care Power of Online Banking Specialist? No Code Status History Code Status Date Activated Date Inactivated Comments Full Code 07/11/2022 8:35 AM 07/11/2022 3:33 PM This order reflects the patients wishes and were consensually agreed upon. Question Answer Comments Discussion of Advance Directives occurred with: Patient Does the patient have a Living Will? No Does the patient have Health Care Power of Online Banking Specialist? No Care Teams Dietetic Intern Relationship Specialty Start Date End Date Josue Blake MD [address] [place] [address] PCP - General Family Medicine 02/06/22 documented as of this encounter
[2023-07-18] MEDS ORDERED: LORazepam 1 MG/1 ML SYR ED Inj Use IV STA (08:01)
[2023-07-18] MEDS ORDERED: FAMOTIDINE 20MG IV PUSH 20 MG/5 ML SYR IV STA (08:01)
[2023-07-18] MEDS ORDERED: LACTATED RINGER'S 1,000 ML IV ONE (08:01)
--- NOTE | 2023-07-18 08:28 | Emergency Department Note ---
Impression & Plan Pain from bone metastases, Nausea & vomiting, Hypokalemia, Hypomagnesemia ED Provider Note ED Provider Note NAME: FANNIE GUTIERREZ AGE:43 SEX: Female : 1980 ARRIVES VIA: Private vehicle INFORMANT: Patient ED PROVIDER(s): Mervat Newton DO CHIEF COMPLAINT: Left hip pain HPI: This is a 43-year-old female who presents to the emergency department due to concern for increased left hip pain since her last radiation treatment on . Patient with known metastatic lung cancer. She is due to restart chemotherapy next week but is awaiting a second opinion on her treatment course on Thursday. Patient does have medications at home for pain and nausea but states they have not been working. She wears a fentanyl patch and has a prescription for oral hydromorphone additionally. She also has Zofran and promethazine for nausea which she states is also not helping. Family bedside states every time she tries to take her medication or eat/drink anything she vomits it back up and they are concerned for dehydration as well. Patient complains of increased pain at the right jaw and concern for dental infection additionally. PAST MEDICAL HISTORY:See Below PAST SURGICAL HISTORY:See Below FAMILY HISTORY:See Below SOCIAL HISTORY:See Below HOME MEDICATIONS:See Below ALLERGIES:See Below VITALS:See Below PHYSICAL EXAMINATION: GENERAL: alert, unwell appearing, well nourished, no distress, non-toxic EYE EXAM: normal conjunctiva, PERRL and EOM's grossly intact OROPHARYNX: no exudate, no erythema, lips, buccal mucosa, and tongue normal and mucous membranes are moist NECK: supple, no nuchal rigidity, no adenopathy, non-tender LUNGS: Clear to auscultation. Normal chest wall mechanics, no w/r/r HEART: no murmurs, S1 normal and S2 normal, port noted right anterior superior chest wall ABDOMEN: abdomen soft, non-tender, normo-active bowel sounds, no masses, no rebound or guarding. BACK: Back is symmetrical on inspection and there is no deformity, no midline tenderness, no CVA tenderness. SKIN: no rashes, petechiae, orbruising UPPER EXTREMITIES: upper extremities are grossly normal. FROM, nml pulses b/l. LOWER EXTREMITIES: No pitting edema. FROM, nml pulses b/l. NEURO EXAM: Normal sensorium, cranial nerves II-XII grossly intact, normal speech, no facial droop,nogross weakness of arms, no gross weakness of legs. Gross sensation intact. No ataxia. Vital Signs: reviewed and remarkable Differential Diagnosis: Cancer related pain, pain from bony metastasis, dehydration, electrode abnormality, ASHISH, medication ADR, as well as others were considered MEDICAL DECISION MAKING: This is a 43-year-old female with known metastatic lung cancer who presents emergency department due to worsening pain since radiation 2 days ago with accompanying nausea and vomiting. Patient does have home medications she has been taking without any improvement. She has had no intake in the last 48 hours and everything she does try to eat or drink she vomits. She was afebrile vital signs stable on arrival although uncomfortable appearing. Labs drawn and sent after her port was accessed, IV established, patient monitored on telemetry. IV fluids started and she was given IV Tylenol, IV Dilaudid, IV Ativan, and IV Pepcid for symptoms with some improvement. Patient sent for CT face due to her concern for pain in the right jaw and a new metastatic bony lesion was noted. Patient was noted to have significant hypokalemia and hypomagnesemia. She was given oral potassium repletion and started on IV magnesium repletion. Due to concern for ability to control symptoms at home despite her current medication regimen, case discussed with hospitalist team for additional evaluation and management. Consultation(s): 1135: Discussed with Gloria Schafer hospitalist team, for additional evaluation and management. ER Treatment Provided: See below Diagnostics Interpreted By Me: -ECG: Normal sinus at 81, normal axis, normal intervals, no acute ST/T wave changes -Cardiac Monitoring: An order was placed for continuous cardiac monitoring. The monitor shows a rate of 90 with normal sinus rhythm. -Laboratory studies: As stated above and show below. -Imaging studies: [] Triage Nursing Note Reviewed Prior/Outside Records Reviewed -recent discharge summary reviewed Past Med/Surg History Medical History Pneumonia Fever Chest fullness Dysphasia Pneumonia Chest pain Community acquired pneumonia Chronic low back pain Chronic cough Pseudocholinesterase deficiency Encounter for pre-operative examination Pancytopenia Primary adenocarcinoma of upper lobe of right lung (10/03/22) Endometriosis of the uterus, unspecified Asthma ADHD Tobacco abuse Systemic lupus erythematosus Surgical History H/O right wrist surgery H/O: hysterectomy History of cholecystectomy Hx of appendectomy H/O tubal ligation S/P bronchoscopy Family History Mother Cancer Breast Grandmother (Maternal) Cancer Lung Social History Smoking Status: Current every day smoker Tobacco Type: Cigarettes Cigarettes Per Day: 1 ppd; Second Hand Exposure: Yes; Do You Dip or Chew Tobacco: No; Hx Alcohol Use: No Hx Substance Use: No Preferred Language: Bangladeshi Communication Ability: Effective Visual Impairment: No Limitations Hearing Ability: Normal 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 Beliefs That Will Affect Care: None marital status: Single Current Living Situation: Spouse Current Living Situation Comment: engaged current occupational status: unemployed 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 Feels Safe at Home: Yes Diet: regular during the past year weight has: remained stable Assistive Devices: Oxygen - at Night Allergies Allergies Allergy/AdvReac Type Severity Reaction Status Date / Time levofloxacin [From Levaquin] Allergy Severe THROAT Verified 07/08/23 19:23 SWELLS SHUT, ITCHY--RASH PER [facility] Penicillins Allergy Severe Anaphylaxis Verified 07/08/23 19:23 clindamycin Allergy Intermediate CAUSED A Verified 07/08/23 19:23 YEAST INFECTION X 6 MONTHS povidone-iodine Allergy Intermediate Rash Verified 07/08/23 19:23 [From Betadine] silver Allergy Intermediate Rash Verified 07/08/23 19:23 [From Tegaderm AG Mesh] bupropion [From Wellbutrin] AdvReac Severe suicidal Verified 07/08/23 19:23 ideation duloxetine AdvReac Severe suicidal Verified 07/08/23 19:23 ideations sulfamethoxazole AdvReac Mild YEAST Verified 07/08/23 19:23 [From Bactrim] INFECTION trimethoprim [From Bactrim] AdvReac Mild YEAST Verified 07/08/23 19:23 INFECTION ANESTHESIA AdvReac Severe PER Uncoded 07/08/23 19:23 [facility]--PSEUDOCHLOINESTERASE---FLAT LINES PLASTIC AdvReac Severe SKIN PEELS Uncoded 07/08/23 19:23 Home Meds Home Medications Medication Instructions Recorded Confirmed albuterol sulfate 90 mcg/actuation 2 puff inhalation Q4H PRN 03/28/23 07/18/23 aerosol inhaler (Ventolin HFA) Shortness Of Breath Or Wheezing chlorpromazine 25 mg tablet 25 mg PO QID PRN Hiccups 03/28/23 07/18/23 cyanocobalamin (vitamin B-12) 1,000 mcg IM MONTHLY 03/28/23 07/18/23 1,000 mcg/mL injection solution fluticasone propionate 230 2 puff inhalation BID 03/28/23 07/18/23 mcg-salmeterol 21 mcg/actuation HFA inhaler (Advair HFA) folic acid 1 mg tablet 1 mg PO DAILY 03/28/23 07/18/23 lorazepam 0.5 mg tablet 0.5 mg PO TID PRN Anxiety 03/28/23 07/18/23 ondansetron HCl 8 mg tablet 8 mg PO TID PRN Nausea And Vomiting 03/28/23 07/18/23 umeclidinium 62.5 mcg/actuation 1 inh inhalation DAILY 03/28/23 07/18/23 blister powder for inhalation (Incruse Ellipta) Magic Mouthwash 300 mL mouthwash 10 ml mucous membrane ACHS PRN 05/28/23 07/18/23 dysphagiea potassium chloride 20 mEq 20 meq PO QAM 06/19/23 07/18/23 tablet,extended release(part/cryst) fentanyl 50 mcg/hr transdermal 2 patch transdermal Q72H 07/02/23 07/18/23 patch hydromorphone 4 mg tablet 4 mg PO Q4H PRN Breakthrough Pain 07/02/23 07/18/23 pantoprazole 40 mg tablet,delayed 40 mg PO BID 07/02/23 07/18/23 release dexamethasone 4 mg tablet 4 mg PO UD 07/18/23 07/18/23 ibuprofen 800 mg tablet 800 mg PO Q8H PRN Pain, Moderate 07/18/23 07/18/23 promethazine 25 mg tablet 25 mg PO Q6H PRN n/v 07/18/23 07/18/23 Previous Rx's Medication Instructions Recorded doxycycline hyclate 100 mg tablet 100 mg PO BID #12 tabs 07/14/23 Results & Data (ED) Vital Signs Vital Signs - 24 hr 07/18/23 07:41 07/18/23 08:46 07/18/23 09:30 Temperature 36.7 C Temperature Source Temporal Artery Scan Pulse Rate 119 H 85 88 Pulse Rate from SpO2 Sensor 90 Respiratory Rate 20 17 Respiratory Effort / Characteristics Non-Labored Spontaneous Respiratory Depth Normal Blood Pressure 119/78 153/98 H Blood Pressure Mean 91 116 Pulse Oximetry 98 100 Oxygen Delivery Method Room Air Oxygen Flow Rate Sepsis Recent Fever Within 48 Hours No Sepsis New/Unexplained Change in Mental Status No Sepsis Action Taken by Nursing No Action Required 07/18/23 09:35 07/18/23 10:01 07/18/23 10:30 Temperature Temperature Source Pulse Rate 91 H 94 H 94 H Pulse Rate from SpO2 Sensor 89 97 H Respiratory Rate 21 18 15 Respiratory Effort / Characteristics Respiratory Depth Blood Pressure 153/98 H 112/93 117/81 Blood Pressure Mean 116 99 93 Pulse Oximetry 95 91 Oxygen Delivery Method Nasal Cannula Oxygen Flow Rate 2 Sepsis Recent Fever Within 48 Hours Sepsis New/Unexplained Change in Mental Status Sepsis Action Taken by Nursing 07/18/23 11:00 Temperature Temperature Source Pulse Rate 85 Pulse Rate from SpO2 Sensor 84 Respiratory Rate Respiratory Effort / Characteristics Respiratory Depth Blood Pressure 127/81 Blood Pressure Mean 96 Pulse Oximetry 96 Oxygen Delivery Method Oxygen Flow Rate Sepsis Recent Fever Within 48 Hours Sepsis New/Unexplained Change in Mental Status Sepsis Action Taken by Nursing Laboratory Data 07/19/23 05:57 07/19/23 05:57 Lab Results 07/18/23 Range/Units 08:53 WBC 4.29 L (4.8-10.8) K/ul RBC 3.74 L (4.20-5.40) M/uL Hgb 11.2 L (12.0-16.0) g/dl Hct 33.6 L (37.0-47.0) % MCV 89.8 (80.0-100.0) fL MCH 29.9 (25.0-34.0) pg MCHC 33.3 (32.0-36.0) g/dL RDW Std Deviation 45.9 (36.4-46.3) fL RDW Coeff of Saritha 14.0 (11.5-14.5) % Plt Count 80 L (130-400) K/uL MPV 10.0 (9.4-12.4) fL Immature Gran % (Auto) 1.2 % Neut % (Auto) 80.7 % Lymph % (Auto) 7.9 % [place] % (Auto) 7.0 % Eos % (Auto) 3.0 % Baso % (Auto) 0.2 % Neut # (Auto) 3.46 (1.40-6.50) K/uL Lymph # (Auto) 0.34 L (1.20-3.40) K/uL [place] # (Auto) 0.30 (0.11-0.59) K/uL Eos # (Auto) 0.13 (0.00-0.50) K/uL Baso # (Auto) 0.01 (0.00-0.20) K/uL Immature Gran # (Auto) 0.05 (0.01-0.20) K/uL Sodium 137 (136-145) mmol/L Potassium 2.6 L (3.5-5.1) mmol/L Chloride 99 (98-107) mmol/L Carbon Dioxide 29 (21-32) mmol/L Anion Gap 9 (3-11) BUN 14 (6-23) mg/dl Creatinine 0.54 L (0.6-1.2) mg/dl Est Cr Clr Drug Dosing Not Reportable Est GFR ( Amer) 132.1 ml/min Est GFR (Non-Af Amer) 114.0 ml/min BUN/Creatinine Ratio 25.9 H (10-20) Glucose 119 H (70-99(Fasting)) mg/dl Calcium 8.9 (8.6-10.3) mg/dl Phosphorus 3.9 (2.5-4.9) mg/dl Magnesium 1.4 L (1.7-2.4) mg/dl Total Bilirubin 0.4 (0.2-1.0) mg/dl AST 7 L (13-39) U/L ALT 5 L (7-52) U/L Alkaline Phosphatase 82 (34-104) U/L Total Protein 6.1 (6.0-8.3) gm/dl Albumin 3.1 L (3.4-5.0) gm/dl Globulin 3.0 (2.5-4.0) gm/dl Albumin/Globulin Ratio 1.0 (0.9-2) Lipase 6 L (11-82) U/L Administered Medications Acetaminophen (Acetaminophen 325 Mg Tab) 650 mg PO Q4H PRN PRN Reason: Pain or Fever Stop: 08/17/23 11:37 Last Admin: 07/19/23 04:03 Dose: 650 mg Documented By: Admin: 07/18/23 21:50 Dose: 650 mg Documented By: Admin: 07/18/23 15:42 Dose: 650 mg Documented By: DAMON Hydromorphone HCl (Hydromorphone Inj 1 Mg/Ml Syringe) 1 mg IV Q15M PRN PRN Reason: Pain Stop: 08/01/23 08:00 Last Admin: 07/19/23 03:15 Dose: 1 mg Documented By: Admin: 07/19/23 00:15 Dose: 1 mg Documented By: Admin: 07/18/23 21:02 Dose: 1 mg Documented By: Admin: 07/18/23 12:53 Dose: 1 mg Documented By: Admin: 07/18/23 09:49 Dose: 1 mg Documented By: Admin: 07/18/23 09:08 Dose: 1 mg Documented By: DYLAN Hydromorphone HCl (Hydromorphone Inj 0.5 Mg/0.5 Ml Syr) 0.25 mg IV Q6H MATI Stop: 08/01/23 12:59 Last Admin: 07/19/23 06:00 Dose: 0.25 mg Documented By: Admin: 07/19/23 01:06 Dose: 0.25 mg Documented By: Admin: 07/18/23 20:10 Dose: 0.25 mg Documented By: Admin: 07/18/23 15:41 Dose: 0.25 mg Documented By: DAMON Sodium Chloride (Nss) 1,000 mls @ 80 mls/hr IV .[id number] MATI Stop: 08/17/23 12:44 Last Admin: 07/19/23 00:17 Dose: 80 mls/hr Documented By: Infusion: 07/19/23 00:17 Dose: Infused Documented By: Admin: 07/18/23 15:40 Dose: 80 mls/hr Documented By: DAMON Pantoprazole Sodium 40 mg/ (Syringe) 10 mls @ 5 mls/min IV BID MATI Stop: 08/17/23 20:59 Last Admin: 07/18/23 20:57 Dose: 5 mls/min Documented By: RISA Ondansetron HCl 8 mg/ Dextrose 54 mls @ 216 mls/hr IV Q6H PRN PRN Reason: Nausea Stop: 08/17/23 12:55 Last Infusion: 07/19/23 04:03 Dose: Infused Documented By: Admin: 07/19/23 03:36 Dose: 216 mls/hr Documented By: RISA Miscellaneous (Check Fentanyl Patch Placement) 1 each N/A QS [facility] Stop: 08/17/23 15:59 Last Admin: 07/18/23 23:46 Dose: 1 each Documented By: Admin: 07/18/23 18:41 Dose: 1 each Documented By: DAMON Senna/Docusate Sodium (Docusate Sodium/Senna 50/8.6mg Tab) 1 tab PO QAM MATI Stop: 08/17/23 12:59 Last Admin: 07/18/23 15:42 Dose: 1 tab Documented By: DAMON Discontinued Medications Lactated Ringer's (Lr) 1,000 mls @ 999 mls/hr IV .Q1H1M ONE Stop: 07/18/23 09:01 Last Infusion: 07/18/23 11:05 Dose: Infused Documented By: Admin: 07/18/23 09:07 Dose: 999 mls/hr Documented By: DYLAN Famotidine (Pepcid 20mg Iv Push) 20 mg in 5 mls @ 2.5 mls/min IV NOW STA Stop: 07/18/23 08:02 Last Admin: 07/18/23 09:08 Dose: 2.5 mls/min Documented By: DYLAN Acetaminophen (Ofirmev) 1,000 mg in 100 mls @ 400 mls/hr IV NOW STA Stop: 07/18/23 09:23 Last Infusion: 07/18/23 10:27 Dose: Infused Documented By: Admin: 07/18/23 09:49 Dose: 400 mls/hr Documented By: DYLAN Magnesium Sulfate/Dextrose (Magnesium Sulfate / D5w) 1 gm in 100 mls @ 100 mls/hr IV Q1H MATI Stop: 07/18/23 11:34 Last Infusion: 07/18/23 12:58 Dose: Infused Documented By: Admin: 07/18/23 11:47 Dose: 100 mls/hr Documented By: Infusion: 07/18/23 11:26 Dose: Infused Documented By: Admin: 07/18/23 10:26 Dose: 100 mls/hr Documented By: DYLAN Sodium Chloride (Nss) 1,000 mls @ 999 mls/hr IV .Q1H1M ONE Stop: 07/18/23 12:35 Last Infusion: 07/18/23 12:58 Dose: Infused Documented By: Admin: 07/18/23 11:47 Dose: 999 mls/hr Documented By: DYLAN Potassium Chloride (K Steffen / Wtr) 10 meq in 100 mls @ 100 mls/hr IV Q1H MATI Stop: 07/18/23 14:44 Last Infusion: 07/18/23 16:54 Dose: Infused Documented By: Admin: 07/18/23 15:40 Dose: 100 mls/hr Documented By: Infusion: 07/18/23 14:33 Dose: Infused Documented By: Admin: 07/18/23 13:04 Dose: 100 mls/hr Documented By: DARIN Ioversol (Optiray 320 500ml) 87 ml IV ONCE ONE Stop: 07/18/23 10:42 Last Admin: 07/18/23 10:42 Dose: 87 ml Documented By: ALLISON Lorazepam (Lorazepam 1 Mg/1 Ml Syr Ed Inj Use) 0.5 mg IV ONE STA Stop: 07/18/23 08:02 Last Admin: 07/18/23 09:07 Dose: 0.5 mg Documented By: DYLAN Potassium Chloride (Potassium Chloride Crtab 20 Meq Tabcr) 40 meq PO NOW STA Stop: 07/18/23 09:36 Last Admin: 07/18/23 09:52 Dose: 40 meq Documented By: DYLAN Imaging Data Radiologist's Impression: Face CT 07/18/23 08:01 CT facial bones w con CT DOSE: CLINICAL HISTORY: right jaw pain . History of lung cancer. TECHNIQUE: Multiaxial CT images of the facial bones were performed following the intravenous administration of 87 cc of Optiray 320 and reformatted in the sagittal and coronal planes. A dose lowering technique was utilized adhering to the principles of ALARA. COMPARISON STUDY: Brain MRI 03/04/2023. FINDINGS: There is again noted a partially enhancing 13 mm lesion within the right temporal lobe. This remains unchanged and is consistent the patient's known intracranial metastatic disease. The orbits are unremarkable. There is enhancing destructive lesion centered within the ramus of the right hemimandible. This is best seen on axial image 152 and measures 2.5 x 2.5 cm. This is also consistent with a metastatic focus. No pathologic fractures at this time. However, there is greater than 50% destruction of the bone at this location. This soft tissue lesion displaces the right masseter and pterygoid muscles. No lymphadenopathy identified within the upper neck. The paranasal sinuses and mastoid air cells are clear. IMPRESSION: 1. A 2.5 x 2.5 cm destructive lesion centered within the ramus of the right hemimandible consistent with metastatic disease. No evidence for pathologic fracture at this time. 2. Redemonstration of the 13 mm intracranial metastatic focus within the right temporal lobe. ACT 112: Negative or not required by law. Electronically signed by: Kofi Tafoya M.D. 07/18/2023 11:00 AM Discharge Plan Visit Data Chief Complaint: Pain (Generalized) Stated Complaint: cancer pain, vomiting ED Provider: Mervat Newton Discharge Problem: Pain from bone metastases, Nausea & vomiting, Hypokalemia, Hypomagnesemia Patient Disposition: Admitted As Inpatient Discharge Instructions Interventions: ED Discharge Assessment Last Done: 07/18/23 14:41
[2023-07-18 09:05] LABS: Basophils # (auto) 0.01 K/uL (0.00-0.20); Basophils % (auto) 0.2 %; Eosinophils # (auto) 0.13 K/uL (0.00-0.50); Hematocrit (blood only) 33.6 % (37.0-47.0); Hemoglobin 11.2 g/dl (12.0-16.0); Immature Granulocytes # (auto) 0.05 K/uL (0.01-0.20); Immature Granulocytes % (auto) 1.2 %; Lymphocytes # (auto) 0.34 K/uL (1.20-3.40); Lymphocytes % (auto) 7.9 %; Mean Corpuscular Hemoglobin 29.9 pg (25.0-34.0); Mean Corpuscular Hgb Conc 33.3 g/dL (32.0-36.0); Mean Corpuscular Volume 89.8 fL (80.0-100.0); Neutrophils # (auto) 3.46 K/uL (1.40-6.50); Neutrophils % (auto) 80.7 %; Platelet Count 80 K/uL (130-400); RDW Standard Deviation 45.9 fL (36.4-46.3); Red Blood Count 3.74 M/uL (4.20-5.40); White Blood Count 4.29 K/ul (4.8-10.8)
[2023-07-18] MEDS: HYDROmorphone INJ 1 MG/ML SYRINGE IV PRN ×4 (09:08→21:02)
[2023-07-18] MEDS ORDERED: ACETAMINOPHEN 1,000 MG/100 ML VIAL IV STA (09:09)
[2023-07-18 09:21] LABS: Alanine Aminotransferase 5 U/L (7-52); Albumin Level 3.1 gm/dl (3.4-5.0); Alkaline Phosphatase 82 U/L (34-104); Anion Gap 9 (3-11); Aspartate Aminotransferase 7 U/L (13-39); BUN Creatinine Ratio 25.9 (10-20); Bilirubin,Total 0.4 mg/dl (0.2-1.0); Blood Urea Nitrogen 14 mg/dl (6-23); Calcium 8.9 mg/dl (8.6-10.3); Carbon Dioxide 29 mmol/L (21-32); Chloride 99 mmol/L (98-107); Est GFR (African American) 132.1 ml/min; Glucose 119 mg/dl (70-99(Fasting)); Lipase 6 U/L (11-82); Magnesium 1.4 mg/dl (1.7-2.4); Potassium 2.6 mmol/L (3.5-5.1); Sodium 137 mmol/L (136-145); Total Protein 6.1 gm/dl (6.0-8.3)
[2023-07-18] MEDS ORDERED: POTASSIUM CHLORIDE CRTAB 20 MEQ TABCR PO STA (09:35)
[2023-07-18] MEDS: MAGNESIUM SULFATE / D5W 1 GM/100 ML BAG IV SCH ×2 (10:26→11:47)
[2023-07-18] MEDS ORDERED: OPTIRAY 320 500ml IV ONE (10:41)
--- NOTE | 2023-07-18 11:03 | CT Scan Report ---
CT facial bones w con CT DOSE: CLINICAL HISTORY: right jaw pain . History of lung cancer. TECHNIQUE: Multiaxial CT images of the facial bones were performed following the intravenous administ ration of 87 cc of Optiray 320 and reformatted in the sagittal and coronal planes. A dose lowering t echnique was utilized adhering to the principles of ALARA. COMPARISON STUDY: Brain MRI 03/04/2023. FINDINGS: There is again noted a partially enhancing 13 mm lesion within the right temporal lobe. Thi s remains unchanged and is consistent the patient's known intracranial metastatic disease. The orbits are unremarkable. There is enhancing destructive lesion centered within the ramus of the right hemim andible. This is best seen on axial image 152 and measures 2.5 x 2.5 cm. This is also consistent with a metastatic focus. No pathologic fractures at this time. However, there is greater than 50% destruc tion of the bone at this location. This soft tissue lesion displaces the right masseter and pterygoid muscles. No lymphadenopathy identified within the upper neck. The paranasal sinuses and mastoid air cells are clear. IMPRESSION: 1. A 2.5 x 2.5 cm destructive lesion centered within the ramus of the right hemimandible consistent w ith metastatic disease. No evidence for pathologic fracture at this time. 2. Redemonstration of the 13 mm intracranial metastatic focus within the right temporal lobe. ACT 112: Negative or not required by law. Electronically signed by: Kofi Tafoya M.D. 07/18/2023 11:00 AM
[2023-07-18] MEDS ORDERED: SODIUM CHLORIDE 0.9% 1,000 ML IV ONE (11:35)
[2023-07-18] MEDS ORDERED: MAGNESIUM HYDROXIDE SUSP 30 ML UDC PO PRN (11:38)
[2023-07-18] MEDS ORDERED: ALUMINUM/MAGNESIUM SUSP 30 ML UDC PO PRN (11:38)
[2023-07-18] MEDS ORDERED: POLYETHYLENE (MIRALAX) 17 GM PACK PO PRN (11:38)
[2023-07-18] MEDS ORDERED: ONDANSETRON INJ 2 MG/ML 2 ML VIAL IV PRN ×2 (11:38→12:48)
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
[2023-07-18] MEDS ORDERED: ALBUTEROL HFA 8 GM INHALER INH PRN (12:41)
[2023-07-18] MEDS ORDERED: ondansetron HCL 8 MG in DEXTROSE 5% 50 ML IV PRN (12:56)
[2023-07-18] MEDS: POTASSIUM CHLORIDE / WTR 10 MEQ/100 ML PLCT IV SCH ×2 (13:04→15:40)
[2023-07-18 13:19] LABS: Phosphorus 3.9 mg/dl (2.5-4.9)
[2023-07-18] MEDS: SODIUM CHLORIDE 0.9% 1,000 ML IV SCH (15:40)
[2023-07-18] MEDS: HYDROmorphone INJ 0.5 MG/0.5 ML SYR IV SCH ×2 (15:41→20:10)
[2023-07-18] MEDS: ACETAMINOPHEN 325 MG TAB PO PRN ×2 (15:42→21:50)
[2023-07-18] MEDS: DOCUSATE SODIUM/SENNA 50/8.6MG TAB PO SCH (15:42)
--- NOTE | 2023-07-18 16:04 | Electrocardiogram Report ---
Test Reason : Blood Pressure : / mmHG Vent. Rate : 081 BPM Atrial Rate : 081 BPM P-R Int : 128 ms QRS Dur : 100 ms QT Int : 396 ms P-R-T Axes : 047 000 022 degrees QTc Int : 460 ms Normal sinus rhythm Minimal voltage criteria for LVH, may be normal variant Borderline ECG When compared with ECG of 05-JUL-2023 05:38, No significant change was found Confirmed by Stephen Hudson ([id number]) on 07/18/2023 4:04:35 PM Referred By: REFERRED SELF Confirmed By:Christiano Hudson
[2023-07-18 17:30] LABS: Anion Gap 7 (3-11); BUN Creatinine Ratio 21.2 (10-20); Blood Urea Nitrogen 11 mg/dl (6-23); Calcium 8.1 mg/dl (8.6-10.3); Carbon Dioxide 27 mmol/L (21-32); Chloride 102 mmol/L (98-107); Est GFR (African American) 133.7 ml/min; Est GFR (Non-African American) 115.4 ml/min; Glucose 92 mg/dl (70-99(Fasting)); Potassium 3.1 mmol/L (3.5-5.1); Sodium 136 mmol/L (136-145)
[2023-07-18] MEDS: CHECK fentaNYL PATCH PLACEMENT SCH ×2 (18:41→23:46)
[2023-07-18] MEDS: PANTOprazole 40 MG in SYRINGE 0 ML IV SCH (20:57)
[2023-07-19] MEDS: HYDROmorphone INJ 1 MG/ML SYRINGE IV PRN ×8 (00:15→22:59)
[2023-07-19] MEDS: SODIUM CHLORIDE 0.9% 1,000 ML IV SCH ×2 (00:17→13:58)
[2023-07-19] MEDS: HYDROmorphone INJ 0.5 MG/0.5 ML SYR IV SCH ×2 (01:06→06:00)
[2023-07-19] MEDS: ACETAMINOPHEN 325 MG TAB PO PRN ×2 (04:03→22:34)
[2023-07-19 06:28] LABS: Hematocrit (blood only) 26.5 % (37.0-47.0); Hemoglobin 8.9 g/dl (12.0-16.0); Mean Corpuscular Hgb Conc 33.6 g/dL (32.0-36.0); Mean Corpuscular Volume 89.2 fL (80.0-100.0); Mean Platelet Volume 9.6 fL (9.4-12.4); Platelet Count 67 K/uL (130-400); RDW Coefficient of Variation 13.9 % (11.5-14.5); RDW Standard Deviation 45.1 fL (36.4-46.3); Red Blood Count 2.97 M/uL (4.20-5.40); White Blood Count 3.72 K/ul (4.8-10.8)
[2023-07-19 06:31] LABS: Alanine Aminotransferase 4 U/L (7-52); Albumin Globulin Ratio 1.1 (0.9-2); Albumin Level 2.7 gm/dl (3.4-5.0); Alkaline Phosphatase 77 U/L (34-104); Anion Gap 7 (3-11); Aspartate Aminotransferase 7 U/L (13-39); BUN Creatinine Ratio 15.4 (10-20); Bilirubin,Total 0.4 mg/dl (0.2-1.0); Blood Urea Nitrogen 8 mg/dl (6-23); Calcium 8.4 mg/dl (8.6-10.3); Carbon Dioxide 27 mmol/L (21-32); Chloride 104 mmol/L (98-107); Est GFR (African American) 133.7 ml/min; Est GFR (Non-African American) 115.4 ml/min; Globulin 2.5 gm/dl (2.5-4.0); Glucose 97 mg/dl (70-99(Fasting)); Magnesium 1.6 mg/dl (1.7-2.4); Potassium 2.8 mmol/L (3.5-5.1); Sodium 138 mmol/L (136-145); Total Protein 5.2 gm/dl (6.0-8.3)
[2023-07-19] MEDS: POTASSIUM CHLORIDE / WTR 10 MEQ/100 ML PLCT IV SCH ×2 (07:49→09:38)
[2023-07-19] MEDS: FLUTICASONE/VILANTEROL 200/25MCG 14 PUFFS/INHALER INH SCH (07:50)
[2023-07-19] MEDS: CHECK fentaNYL PATCH PLACEMENT SCH ×2 (07:51→15:41)
[2023-07-19] MEDS: UMECLIDINIUM BROMIDE 62.5MCG/BLISTER 7 PUFFS/INHALER INH SCH (07:51)
[2023-07-19] MEDS: PANTOprazole 40 MG in SYRINGE 0 ML IV SCH ×2 (07:52→20:14)
[2023-07-19] MEDS: DOCUSATE SODIUM/SENNA 50/8.6MG TAB PO SCH (07:52)
[2023-07-19] MEDS ORDERED: fentaNYL 100 MCG/HR TDSY TD SCH (09:00)
[2023-07-19] MEDS ORDERED: DEXAMETHASONE SOD INJ 4 MG/ML VIAL IV STA (10:25)
[2023-07-19] MEDS ORDERED: HYDROmorphone INJ 1 MG/ML SYRINGE IV PRN ×2 (10:26→11:55)
[2023-07-19] MEDS ORDERED: dexAMETHasone 6 MG in SYRINGE 0 ML IV STA (10:32)
[2023-07-19] MEDS ORDERED: HYDROmorphone HCL 2 MG TAB PO SCH (11:00)
[2023-07-19] MEDS: POTASSIUM CHLORIDE CRTAB 20 MEQ TABCR PO SCH (11:43)
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
[2023-07-19] MEDS: LORazepam 0.5 MG TAB PO PRN ×2 (13:56→18:38)
[2023-07-19] MEDS: HYDROmorphone HCL 2 MG TAB PO PRN ×3 (15:40→22:31)
[2023-07-19] MEDS ORDERED: DEXAMETHASONE SOD INJ 4 MG/ML VIAL IV SCH (15:45)
[2023-07-19] MEDS ORDERED: LORazepam 0.25 MG in SYRINGE 0.125 ML IV PRN (16:00)
[2023-07-19] MEDS ORDERED: dexAMETHasone 4 MG in SYRINGE 0 ML IV SCH (16:00)
[2023-07-19] MEDS ORDERED: guaiFENesin/DEXTROM SYRUP 200MG/20MG 10ML UDC PO PRN (16:41)
[2023-07-19] MEDS: PROMETHAZINE HCL 12.5 MG in SODIUM CHLORIDE 0.9% 50 ML IV PRN (17:30)
[2023-07-19] MEDS: IBUPROFEN 800 MG TAB PO PRN (19:39)
[2023-07-20] MEDS: CHECK fentaNYL PATCH PLACEMENT SCH ×4 (00:15→16:05)
[2023-07-20] MEDS: HYDROmorphone INJ 1 MG/ML SYRINGE IV PRN ×7 (02:00→21:10)
[2023-07-20] MEDS: SODIUM CHLORIDE 0.9% 1,000 ML IV SCH (02:04)
[2023-07-20] MEDS: PROMETHAZINE HCL 12.5 MG in SODIUM CHLORIDE 0.9% 50 ML IV PRN ×3 (02:38→19:54)
[2023-07-20] MEDS: HYDROmorphone HCL 2 MG TAB PO PRN ×6 (03:19→19:53)
[2023-07-20] MEDS: LORazepam 0.5 MG TAB PO PRN ×2 (04:18→08:40)
[2023-07-20] MEDS: IBUPROFEN 800 MG TAB PO PRN ×3 (04:53→23:59)
[2023-07-20 06:41] LABS: Eosinophils # (auto) 0.08 K/uL (0.00-0.50); Hematocrit (blood only) 24.1 % (37.0-47.0); Hemoglobin 8.1 g/dl (12.0-16.0); Immature Granulocytes # (auto) 0.02 K/uL (0.01-0.20); Immature Granulocytes % (auto) 0.7 %; Lymphocytes # (auto) 0.34 K/uL (1.20-3.40); Lymphocytes % (auto) 12.7 %; Mean Corpuscular Hemoglobin 29.7 pg (25.0-34.0); Mean Corpuscular Hgb Conc 33.6 g/dL (32.0-36.0); Mean Corpuscular Volume 88.3 fL (80.0-100.0); Mean Platelet Volume 9.8 fL (9.4-12.4); Monocytes # (auto) 0.19 K/uL (0.11-0.59); Monocytes % (auto) 7.1 %; Neutrophils # (auto) 2.04 K/uL (1.40-6.50); Neutrophils % (auto) 76.5 %; Platelet Count 66 K/uL (130-400); RDW Coefficient of Variation 13.7 % (11.5-14.5); Red Blood Count 2.73 M/uL (4.20-5.40); White Blood Count 2.67 K/ul (4.8-10.8)
[2023-07-20 07:13] LABS: Anion Gap 7 (3-11); BUN Creatinine Ratio 17.2 (10-20); Blood Urea Nitrogen 11 mg/dl (6-23); Calcium 8.2 mg/dl (8.6-10.3); Carbon Dioxide 25 mmol/L (21-32); Chloride 106 mmol/L (98-107); Est GFR (African American) 124.9 ml/min; Est GFR (Non-African American) 107.8 ml/min; Glucose 112 mg/dl (70-99(Fasting)); Magnesium 1.5 mg/dl (1.7-2.4); Phosphorus 3.1 mg/dl (2.5-4.9); Potassium 3.1 mmol/L (3.5-5.1); Sodium 138 mmol/L (136-145)
[2023-07-20] MEDS: ACETAMINOPHEN 325 MG TAB PO PRN ×3 (07:14→17:53)
[2023-07-20] MEDS: PANTOprazole 40 MG in SYRINGE 0 ML IV SCH (08:40)
[2023-07-20] MEDS: FOLIC ACID 1 MG TAB PO SCH (08:43)
[2023-07-20] MEDS: POTASSIUM CHLORIDE CRTAB 20 MEQ TABCR PO SCH (08:43)
[2023-07-20] MEDS: DOCUSATE SODIUM/SENNA 50/8.6MG TAB PO SCH (08:43)
[2023-07-20] MEDS: FLUTICASONE/VILANTEROL 200/25MCG 14 PUFFS/INHALER INH SCH (08:44)
[2023-07-20] MEDS: UMECLIDINIUM BROMIDE 62.5MCG/BLISTER 7 PUFFS/INHALER INH SCH (08:44)
[2023-07-20] MEDS ORDERED: fentaNYL 12 MCG/HR TDSY TD SCH (08:45)
[2023-07-20] MEDS ORDERED: fentaNYL 100 MCG/HR TDSY TD SCH (09:00)
--- NOTE | 2023-07-20 09:33 | Pain Management Consultation ---
Date of Consultation July 20, 2023 Assessment & Plan (1) Cancer related pain: (2) Lung cancer metastatic to brain: (3) Pain from bone metastases: (4) Difficulty swallowing: Plan 1. Unfortunately due to the patient's widespread pain there are not interventional pain management options at this time for her. Recommend medication management instead. No role for intrathecal pump as she is currently tolerating her opiates without significant side effects. 2. Recommend increasing fentanyl to 112 mcg every 72 hours with utilization of breakthrough hydromorphone 4 mg p.o. every 3 as needed and IV backup as currently written. Orders are placed. 3. Recommend palliative care consultation as I feel patient would benefit from their services for goalsetting. 4. We discussed adjuvant medication such as Effexor, gabapentin, Lyrica, muscle relaxants but patient refuses at this time due to previous lack of affect or side effects. 5. Please call with any questions, we will follow peripherally throughout her hospitalization. History of Present Illness Attending Physician: Hitesh Dueñas MD History of Present Illness 43-year-old female with metastatic lung cancer to multiple sites including left hip, adrenals, liver, kidneys, right mandible. She reports consultation with [facility] palliative care who increased her fentanyl patch from 50 mcg to 100 mcg on 07/17/2023. She reports minimal benefit from this increase. She is undergoing XRT to her left iliac crest most recently on 07/16/2023. She has utilized Dilaudid 4 mg p.o. every 4 x 2 doses over the last 24 hours and 1 dose of hydromorphone 2 mg IV. She reports pain is worst over her left hip and is characterized as stabbing aching ranging between 8-10 out of 10. She finds mild benefit with IV and oral hydromorphone. She denies pain in other sites as well as any side effects from her current opioid regimen including mental sedation, nausea, vomiting, and constipation. She expresses frustration over diesel fumes in her room on today's visit. Pain Assessment Full Body Front + Back: [address] [facility] Combined Pain Scale: 9-Agonizing - Cannot function. Uncontrolled screaming. Pain scale - at its best (0-10): 8 Pain scale - at its worst (0-10): 10 Allergies Allergy/AdvReac Type Severity Reaction Status Date / Time levofloxacin [From Levaquin] Allergy Severe THROAT Verified 07/08/23 19:23 SWELLS SHUT, ITCHY--RASH PER [facility] Penicillins Allergy Severe Anaphylaxis Verified 07/08/23 19:23 clindamycin Allergy Intermediate CAUSED A Verified 07/08/23 19:23 YEAST INFECTION X 6 MONTHS povidone-iodine Allergy Intermediate Rash Verified 07/08/23 19:23 [From Betadine] silver Allergy Intermediate Rash Verified 07/08/23 19:23 [From Tegaderm AG Mesh] bupropion [From Wellbutrin] AdvReac Severe suicidal Verified 07/08/23 19:23 ideation duloxetine AdvReac Severe suicidal Verified 07/08/23 19:23 ideations sulfamethoxazole AdvReac Mild YEAST Verified 07/08/23 19:23 [From Bactrim] INFECTION trimethoprim [From Bactrim] AdvReac Mild YEAST Verified 07/08/23 19:23 INFECTION ANESTHESIA AdvReac Severe PER Uncoded 07/08/23 19:23 [facility]--PSEUDOCHLOINESTERASE---FLAT LINES PLASTIC AdvReac Severe SKIN PEELS Uncoded 07/08/23 19:23 Home Medications Medication Instructions Recorded Confirmed Type albuterol sulfate 90 mcg/actuation 2 puff inhalation Q4H PRN 03/28/23 07/18/23 History aerosol inhaler (Ventolin HFA) Shortness Of Breath Or Wheezing chlorpromazine 25 mg tablet 25 mg PO QID PRN Hiccups 03/28/23 07/18/23 History cyanocobalamin (vitamin B-12) 1,000 mcg IM MONTHLY 03/28/23 07/18/23 History 1,000 mcg/mL injection solution fluticasone propionate 230 2 puff inhalation BID 03/28/23 07/18/23 History mcg-salmeterol 21 mcg/actuation HFA inhaler (Advair HFA) folic acid 1 mg tablet 1 mg PO DAILY 03/28/23 07/18/23 History lorazepam 0.5 mg tablet 0.5 mg PO TID PRN Anxiety 03/28/23 07/18/23 History ondansetron HCl 8 mg tablet 8 mg PO TID PRN Nausea And Vomiting 03/28/23 07/18/23 History umeclidinium 62.5 mcg/actuation 1 inh inhalation DAILY 03/28/23 07/18/23 History blister powder for inhalation (Incruse Ellipta) Magic Mouthwash 300 mL mouthwash 10 ml mucous membrane ACHS PRN 05/28/23 07/18/23 History dysphagiea potassium chloride 20 mEq 20 meq PO QAM 06/19/23 07/18/23 History tablet,extended release(part/cryst) fentanyl 50 mcg/hr transdermal 2 patch transdermal Q72H 07/02/23 07/18/23 History patch hydromorphone 4 mg tablet 4 mg PO Q4H PRN Breakthrough Pain 07/02/23 07/18/23 History pantoprazole 40 mg tablet,delayed 40 mg PO BID 07/02/23 07/18/23 History release doxycycline hyclate 100 mg tablet 100 mg PO BID #12 tabs 07/14/23 07/18/23 Rx dexamethasone 4 mg tablet 4 mg PO UD 07/18/23 07/18/23 History ibuprofen 800 mg tablet 800 mg PO Q8H PRN Pain, Moderate 07/18/23 07/18/23 History promethazine 25 mg tablet 25 mg PO Q6H PRN n/v 07/18/23 07/18/23 History Pain History Pain Intensity Pain scale - at its best (0-10): 8 Pain scale - at its worst (0-10): 10 Patient History Medical History Pneumonia Fever Chest fullness Dysphasia Pneumonia Chest pain Community acquired pneumonia Chronic low back pain Chronic cough Pseudocholinesterase deficiency Encounter for pre-operative examination Pancytopenia Primary adenocarcinoma of upper lobe of right lung (10/03/22) Endometriosis of the uterus, unspecified Asthma ADHD Tobacco abuse Systemic lupus erythematosus Surgical History H/O right wrist surgery H/O: hysterectomy History of cholecystectomy Hx of appendectomy H/O tubal ligation S/P bronchoscopy Family History Mother Cancer Breast Grandmother (Maternal) Cancer Lung Social History Smoking Status: Current every day smoker Tobacco Type: Cigarettes Cigarettes Per Day: 1 ppd; Second Hand Exposure: Yes; Do You Dip or Chew Tobacco: No; Hx Alcohol Use: No Hx Substance Use: No Preferred Language: Tuvaluan Communication Ability: Effective Visual Impairment: No Limitations Hearing Ability: Normal Chair Mechanic Required: No Beliefs That Will Affect Care: None marital status: Single Current Living Situation: Spouse Current Living Situation Comment: engaged current occupational status: unemployed 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 Feels Safe at Home: Yes Diet: regular during the past year weight has: remained stable Assistive Devices: Oxygen - at Night Physical Exam 2 Constitutional: WD/WN, vitals as above (Eating pancakes on my arrival to the room) well developed and well nourished; no acute distress Eyes: PERRL, conjunctivae normal, anicteric sclerae ENMT: Ears: no external ear abnormality Nose: no external nose abnormality Mouth: no lip abnormality Neck: normal visual inspection Respiratory: normal respiratory effort; no respiratory distress Gastrointestinal (Abdomen): Inspection/Auscultation: abdomen normal to inspection; abdomen not distended Musculoskeletal: Extremities: strength 5/5 throughout (grossly) Gait: n ormal gait (not observed, able to move in bed without great difficulty) Hip: + joint line tenderness Skin: no rashes, warm and dry Psychiatric: Orientation: alert and oriented x 3 Results (Pain Clinic) Diagnostic Review MRI Findings: 06/30/23 MRI OF THE LUMBAR SPINE COMBO CLINICAL HISTORY: Lung cancer. COMPARISON STUDY: Abdominal CT dated 06/03/2023. TECHNIQUE: MRI of the lumbar spine was performed utilizing various T1 and T2- weighted sequences in the axial and sagittal planes. Contrast-enhanced sequences are acquired following the IV administration of 8 cc of Gadavist. The examination is modestly degraded by motion artifact. FINDINGS: Lumbar spine: Vertebral body height and alignment are maintained throughout the lumbar spine. Marrow signal intensity is heterogeneous. Small anterior and lateral marginal osteophytes are seen throughout. There is no MRI evidence of acute fracture. The transverse and spinous processes appear intact. A hemangioma is noted in the body of T12. There is evidence of multifocal osseous metastatic disease. Enhancing lesions are suggested in the bodies of T11, L1, and L2. There is also a large lesion with a soft tissue component centered in the spinous process of L3. The soft tissue component measures up to 2.3 cm. There is also enhancement within the spinous process of L2. Intervertebral discs: Disc desiccation is seen in the lower lumbar region. There is moderate loss of height at L5-S1. The remaining disc spaces are preserved. Spinal cord and central canal: Imaged portions of the spinal cord are normal in morphology and signal intensity. The conus medullaris terminates at the T12-L1 interspace. The nerve roots of the cauda equina are normal in morphology. There is no abnormal postcontrast enhancement. No enhancing tumor is suggested within the central spinal canal. L1-L2: Unremarkable. L2-L3: Unremarkable. L3-L4: Unremarkable. L4-L5: There is minimal posterior disc bulge with annular fissure. The central canal and neural foramina are patent. L5-S1: The central canal and neural foramina are patent. Sacrum: The visualized sacrum is normal in morphology and signal intensity. A large enhancing bony lesion is partially visualized in the medial right ilium. There is also likely partially imaged left iliac lesion. Soft tissues: There is abnormal soft tissue thickening and enhancement identified around the spinous process of L3 at the site of the known bony metastasis. The paravertebral soft tissues are otherwise normal as imaged. A pathologically enlarged left periaortic lymph node on axial postcontrast image #7 measures 2.6 x 1.9 cm. There is also pathologic iliac adenopathy. A left iliac node on image #24 measures 2.8 x 2.0 cm. Enhancing left renal metastases are noted. Right renal metastases and hepatic metastases are seen on the director of scientific research sequences. IMPRESSION: 1. There is evidence of multifocal osseous metastatic disease as above. This appears at least modestly progressive as compared to the 06/03/[address] 2. Bony lesions are also identified within the silvana. 3. There is no central canal stenosis or evidence of epidural tumor. 4. Retroperitoneal and iliac chain lymphadenopathy has progressed as compared to previous. 5. Left renal metastases are noted. 6. Additional findings as above. CT Findings: 07/18/23 CT facial bones w con CT DOSE: CLINICAL HISTORY: right jaw pain . History of lung cancer. TECHNIQUE: Multiaxial CT images of the facial bones were performed following the intravenous administration of 87 cc of Optiray 320 and reformatted in the sagittal and coronal planes. A dose lowering technique was utilized adhering to the principles of ALARA. COMPARISON STUDY: Brain MRI 03/04/2023. FINDINGS: There is again noted a partially enhancing 13 mm lesion within the right temporal lobe. This remains unchanged and is consistent the patient's known intracranial metastatic disease. The orbits are unremarkable. There is enhancing destructive lesion centered within the ramus of the right hemimandible. This is best seen on axial image 152 and measures 2.5 x 2.5 cm. This is also consistent with a metastatic focus. No pathologic fractures at this time. However, there is greater than 50% destruction of the bone at this location. This soft tissue lesion displaces the right masseter and pterygoid muscles. No lymphadenopathy identified within the upper neck. The paranasal sinuses and mastoid air cells are clear. IMPRESSION: 1. A 2.5 x 2.5 cm destructive lesion centered within the ramus of the right hemimandible consistent with metastatic disease. No evidence for pathologic fracture at this time. 2. Redemonstration of the 13 mm intracranial metastatic focus within the right temporal lobe. 07/08/23 Exam(s): CT ABDOMEN + PELVIS With Contrast IV Amt: 82ml EXAM: CT Abdomen and Pelvis With Intravenous Contrast CLINICAL HISTORY: Reason for exam: abd pain n/v. TECHNIQUE: Axial computed tomography images of the abdomen and pelvis with intravenous contrast. CTDI is 24.55 mGy and DLP is 1217.84 mGy-cm. Automated exposure control was utilized for the study. A dose lowering technique was utilized adhering to the principles of ALARA. CONTRAST: Patient received 82ml of IV contrast COMPARISON: No relevant prior studies available. FINDINGS: Lung bases: Enlarging bibasilar pulmonary nodules. Examples are as follows: Medial right middle lobe best seen on series 2 image 1 measuring 1.3 cm where previously measured 0.7 cm and peripheral anterior left lung base best seen on series 2 image 11 measuring 1.0 cm where previously measured 0.6 cm. No consolidation. ABDOMEN: Liver: 2.2 cm ill-defined mass within the posterior right lobe of the liver is not significantly changed. Gallbladder and bile ducts: Gallbladder has been removed. No ductal dilation. Pancreas: Unremarkable. No mass. No ductal dilation. Spleen: Unremarkable. No splenomegaly. Adrenals: Enlarging left adrenal mass measuring 3.1 cm where previously measured 2.0 cm. Enlarging right adrenal nodule now measuring 2.7 cm where previously measured 1.5 cm. Kidneys and ureters: Heterogeneous bilateral kidneys which have a similar appearance to prior exam in the anterior mid right kidney and the lower pole of the left kidney with likely ill-defined masses. No hydronephrosis. Stomach and bowel: Unremarkable. No obstruction. No mucosal thickening. PELVIS: Appendix: No findings to suggest acute appendicitis. Bladder: Unremarkable. No mass. Reproductive: Uterus has been removed. ABDOMEN and PELVIS: Intraperitoneal space: Unremarkable. No free air. No significant fluid collection. Bones/joints: Enlarging osseous metastatic lesion to the left lateral iliac wing, right iliac ala, and L3 spinous process. No acute fracture. No dislocation. Soft tissues: Anterior abdominal hernia just to the right of midline and above the umbilicus with omental fat protruding through the defect. Vasculature: Unremarkable. No abdominal aortic aneurysm. Lymph nodes: Enlarging retroperitoneal lymphadenopathy. Examples as follows: Left para-aortic now measuring 1.7 cm where previously measured 1.2 cm. IMPRESSION: 1. No evidence of acute abdominal or pelvic process. 2. Progression of metastatic disease to the lungs, adrenal glands, osseous structures, and upper abdominal lymphadenopathy. Metastatic disease to the liver and kidneys is relatively stable.
[2023-07-20] MEDS: D5NSS + 20MEQ KCL 20 MEQ/1,000 ML BAG IV SCH (10:16)
[2023-07-20] MEDS: MAGNESIUM SULFATE / D5W 1 GM/100 ML BAG IV SCH ×2 (10:17→12:44)
[2023-07-20] MEDS ORDERED: LORazepam 1 MG in SYRINGE 0.5 ML IV STA (15:29)
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
[2023-07-20] MEDS: PANTOprazole 40 MG TAB PO SCH (21:11)
[2023-07-21] MEDS ORDERED: Nursing to Pharmacy Communication SCH (01:15)
[2023-07-21] MEDS: fentaNYL 12 MCG/HR TDSY TD SCH (01:56)
[2023-07-21] MEDS: HYDROmorphone HCL 2 MG TAB PO PRN ×6 (01:58→22:43)
[2023-07-21] MEDS: fentaNYL 100 MCG/HR TDSY TD SCH (01:58)
[2023-07-21] MEDS: D5NSS + 20MEQ KCL 20 MEQ/1,000 ML BAG IV SCH ×2 (02:06→16:19)
[2023-07-21] MEDS: [UNRECOGNIZED DRUG - REMARK] SCH (02:24)
[2023-07-21] MEDS: [UNRECOGNIZED DRUG - REMARK] SCH (02:26)
[2023-07-21] MEDS ORDERED: BUTALBITAL/ACETAMIN/CAFFEINE TAB PO STA ×2 (03:00→21:20)
[2023-07-21] MEDS: HYDROmorphone INJ 1 MG/ML SYRINGE IV PRN ×7 (06:31→23:37)
[2023-07-21] MEDS: POTASSIUM CHLORIDE CRTAB 20 MEQ TABCR PO SCH (08:32)
[2023-07-21] MEDS: LORazepam 1 MG TAB PO PRN (08:32)
[2023-07-21] MEDS: FOLIC ACID 1 MG TAB PO SCH (08:33)
[2023-07-21] MEDS: FLUTICASONE/VILANTEROL 200/25MCG 14 PUFFS/INHALER INH SCH (08:33)
[2023-07-21] MEDS: UMECLIDINIUM BROMIDE 62.5MCG/BLISTER 7 PUFFS/INHALER INH SCH (08:33)
[2023-07-21] MEDS: CHECK fentaNYL PATCH PLACEMENT SCH ×8 (08:34→23:37)
[2023-07-21] MEDS: PANTOprazole 40 MG TAB PO SCH ×2 (08:37→20:44)
[2023-07-21] MEDS: DOCUSATE SODIUM/SENNA 50/8.6MG TAB PO SCH (08:37)
[2023-07-21] MEDS ORDERED: [UNRECOGNIZED DRUG - REMARK] SCH (08:59)
[2023-07-21] MEDS ORDERED: [UNRECOGNIZED DRUG - REMARK] SCH (08:59)
[2023-07-21] MEDS ORDERED: fentaNYL 100 MCG/HR TDSY TD SCH (09:00)
[2023-07-21] MEDS ORDERED: fentaNYL 12 MCG/HR TDSY TD SCH (09:00)
[2023-07-21] MEDS: PROMETHAZINE HCL 12.5 MG in SODIUM CHLORIDE 0.9% 50 ML IV PRN ×2 (09:08→17:26)
[2023-07-21 09:36] LABS: Basophils # (auto) 0.01 K/uL (0.00-0.20); Basophils % (auto) 0.4 %; Eosinophils # (auto) 0.11 K/uL (0.00-0.50); Eosinophils % (auto) 4.5 %; Immature Granulocytes # (auto) 0.04 K/uL (0.01-0.20); Immature Granulocytes % (auto) 1.7 %; Lymphocytes # (auto) 0.34 K/uL (1.20-3.40); Mean Corpuscular Hemoglobin 29.2 pg (25.0-34.0); Mean Corpuscular Volume 91.2 fL (80.0-100.0); Mean Platelet Volume 10.4 fL (9.4-12.4); Monocytes # (auto) 0.18 K/uL (0.11-0.59); Monocytes % (auto) 7.4 %; Neutrophils # (auto) 1.74 K/uL (1.40-6.50); Platelet Count 59 K/uL (130-400); RDW Standard Deviation 46.1 fL (36.4-46.3); Red Blood Count 2.74 M/uL (4.20-5.40); White Blood Count 2.42 K/ul (4.8-10.8)
[2023-07-21 09:37] LABS: Anion Gap 6 (3-11); Calcium 8.1 mg/dl (8.6-10.3); Carbon Dioxide 25 mmol/L (21-32); Chloride 105 mmol/L (98-107); Magnesium 1.4 mg/dl (1.7-2.4); Potassium 3.2 mmol/L (3.5-5.1); Sodium 136 mmol/L (136-145)
[2023-07-21 09:42] LABS: BUN Creatinine Ratio 16.1 (10-20); Blood Urea Nitrogen 9 mg/dl (6-23); Est GFR (African American) 130.5 ml/min; Est GFR (Non-African American) 112.6 ml/min; Glucose 95 mg/dl (70-99(Fasting))
[2023-07-21] MEDS: IBUPROFEN 800 MG TAB PO PRN (11:10)
--- NOTE | 2023-07-21 14:06 | Palliative Care Progress Note ---
Date of Service July 21, 2023 Assessment & Plan (1) Cancer related pain: (2) Dyspnea and respiratory abnormalities: (3) Cancer-related breakthrough pain: (4) Palliative care by specialist: (5) Metastatic adenocarcinoma to brain: (6) Cancer, metastatic to bone: (7) Advanced care planning/counseling discussion: Plan: desired more education about EOL. we spoke about changes patients may experience reviewed physical and emotional changes to watch for advised at some point she will become less interactive and eventually not interactive revisited hospice again - she declines she insists there is a cure and someone has not given it to her. wishful ender mccall acknowledged. advised we can continue to hope for better response in her cancer while simultaneously also preparing for what to do in case that does not happen. She is awaiting her housing assignment she has not completed a living will or any estate planning, arrangement for child etc. she states she is awaiting appt with Dr David at [facility] for third opinion re chemo options she declines more RT and states she is not resuming it. she will resume OP pall med with Dr Dial at [place] ACP time 30min face to face with pt voluntary participation and engagement. (8) Therapeutic opioid induced constipation: (9) Dysphagia: (10) Primary adenocarcinoma of upper lobe of right lung: Plan ACP as noted above headache med request shared with primary team since TDF dose was not accurate placed will give correct dose another day to see if this helps. no change to opioid regimen I am away tomorrow and return . Please direct pain mgt needs to primary service tomorrow, i will not be available. Thank you for allowing us to participate in the ongoing care of this patient. Please don't hesitate to call or page with any additional concerns. Dr. Marissa Hickman DNP Director, Palliative Care Admission and Anticipated Discharge Date Admission Date: July 18, 2023 Subjective more pain today, tells me she discovered her TDF was not at the right dose on overnight assessment and correct dose placed. has been using a fair amount of BTP meds : Dilaudid 16mg IV Dilaudid 32mg PO complaining of migraine from the vents, asking for a "migraine cocktail" with IV toradol, benadryl etc. less n/v jaw pain about the same hip pain is better since no RT per her perception but will note she has been steadily using prn IV Dilaudid as well- 16mg in pat 24 hr Asks a few questions re how will i know i am dying emphasizes desire for continue cancer treatment and tells me "I know there is a cure out there, there has to be. Someone just hasn't given it to me yet but they need to do it already." Review of Systems Review of Systems: All systems reviewed & are unremarkable except as noted in Subjective Physical Exam Constitutional: + ill appearing, + physical limitations and cooperative Eyes: PERRL, conjunctivae normal, anicteric sclerae ENMT: Mouth: + oral mucosal abnormality, + dry oral mucous membranes and + poor dentition Neck: trachea midline, no thyromegaly Respiratory: normal effort at rest diminished throughout right chest port/accessed Cardiovascular: Rate/Rhythm: + tachycardic Gastrointestinal (Abdomen): BS+ non tender Musculoskeletal: LOCO gen weakness Skin: various tattoos pale but warm +clubbing Neurologic: AAOx3 slight trouble following long discussions and needs to revisit some aspects for more clarity and re review Psychiatric: tearful Results & Data Vital Signs (Past 12 Hours) Vital Signs Temp Pulse Resp BP BP Pulse Ox O2 Del Method 07/21/23 08:04 36.8 C 92 H 18 114/77 98 Nasal Cannula 07/21/23 03:06 36.8 C 95 H 18 128/82 96 Nasal Cannula O2 Flow Rate 07/21/23 08:04 2 07/21/23 03:06 3 Laboratory Results data reviewed Diagnostic Findings data reviewed PG Care Time/CCT Total # of Minutes Spent Total Time Spent with Patient: Total time spent is greater than 50% in coordination of care (as documented) at patient's floor/unit and/or counseling patient: I spent 80 minutes overall addressing this case: 10 min in medical data review/discussion with referring provider(s) and/or preparation for the visit 15 min in direct interaction with the patient/exam 30 min in Advance Care Planning/Goals of Care discussions as detailed above in note (must be >16min) 10 min in subsequent review and synthesis of assessment and plan 15 min communicating with other providers regarding the patient's case: Advanced Care Planning 76653 Advanced Care Planning 30 Min [place] [address] SUB INP/OBS CARE 3/50MIN Patient Type Established History Comprehensive Exam Comprehensive Medical Decision Making High Complexity Diagnoses Cancer related pain G89.3 Dyspnea and respiratory abnormalities R06.00; R06.89 Cancer-related breakthrough pain G89.3 Palliative care by specialist Z51.5 Metastatic adenocarcinoma to brain C79.31 Cancer, metastatic to bone C79.51 Advanced care planning/counseling discussion Z71.89 Therapeutic opioid induced constipation K59.03; T40.2X5A Dysphagia R13.10 Primary adenocarcinoma of upper lobe of right lung C34.11 Additional Codes Advanced Care Planning - 31883 Advanced Care Planning 30 Min: 50482 Advanced Care Planning 30 Min ([id number])
--- NOTE | 2023-07-21 16:30 | Oncology Consultation ---
Date of Consultation July 21, 2023 Assessment & Plan (1) Lung cancer metastatic to brain: At this point we will resume outpatient therapy once the patient is stabilized and discharged from the hospital. She is currently admitted with severe cancer related pain. We are working closely with our colleagues from hospital internal medicine and palliative care, to get a better control of the patient's pain. (2) Cancer-related breakthrough pain: Continue management per our colleagues with palliative care for control of the pain. (3) Cancer, metastatic to bone: Outpatient resumption of chemotherapy once the patient is discharged. Plan Thank you for this interesting oncological consult. Medical oncology will continue to follow the patient and make appropriate treatment recommendations. History of Present Illness Attending Physician: Hitesh Dueñas MD History of Present Illness The patient is a very pleasant 43-year-old female who is well-known to me because of her history of metastatic non-small cell lung cancer. I recently evaluated her in the clinic when I took over her care from Dr. Jimenez. I had noticed that the patient had progressed on single agent Keytruda, recommended additional treatment including palliative systemic chemotherapy. The patient did not receive palliative systemic therapy as of now. However she was admitted to the hospital with intractable pain related to her cancer. She has been evaluated by our colleagues from palliative care who discussed the option of hospice care as well as modified her pain medication regimen. Oncology has been consulted to assist in management of this patient with metastatic non-small cell lung cancer Allergies Allergy/AdvReac Type Severity Reaction Status Date / Time levofloxacin [From Levaquin] Allergy Severe THROAT Verified 07/08/23 19:23 SWELLS SHUT, ITCHY--RASH PER [facility] Penicillins Allergy Severe Anaphylaxis Verified 07/08/23 19:23 clindamycin Allergy Intermediate CAUSED A Verified 07/08/23 19:23 YEAST INFECTION X 6 MONTHS povidone-iodine Allergy Intermediate Rash Verified 07/08/23 19:23 [From Betadine] silver Allergy Intermediate Rash Verified 07/08/23 19:23 [From Tegaderm AG Mesh] bupropion [From Wellbutrin] AdvReac Severe suicidal Verified 07/08/23 19:23 ideation duloxetine AdvReac Severe suicidal Verified 07/08/23 19:23 ideations sulfamethoxazole AdvReac Mild YEAST Verified 07/08/23 19:23 [From Bactrim] INFECTION trimethoprim [From Bactrim] AdvReac Mild YEAST Verified 07/08/23 19:23 INFECTION ANESTHESIA AdvReac Severe PER Uncoded 07/08/23 19:23 [facility]--PSEUDOCHLOINESTERASE---FLAT LINES PLASTIC AdvReac Severe SKIN PEELS Uncoded 07/08/23 19:23 Home Medications Medication Instructions Recorded Confirmed Type albuterol sulfate 90 mcg/actuation 2 puff inhalation Q4H PRN 03/28/23 07/18/23 History aerosol inhaler (Ventolin HFA) Shortness Of Breath Or Wheezing chlorpromazine 25 mg tablet 25 mg PO QID PRN Hiccups 03/28/23 07/18/23 History cyanocobalamin (vitamin B-12) 1,000 mcg IM MONTHLY 03/28/23 07/18/23 History 1,000 mcg/mL injection solution fluticasone propionate 230 2 puff inhalation BID 03/28/23 07/18/23 History mcg-salmeterol 21 mcg/actuation HFA inhaler (Advair HFA) folic acid 1 mg tablet 1 mg PO DAILY 03/28/23 07/18/23 History lorazepam 0.5 mg tablet 0.5 mg PO TID PRN Anxiety 03/28/23 07/18/23 History ondansetron HCl 8 mg tablet 8 mg PO TID PRN Nausea And Vomiting 03/28/23 07/18/23 History umeclidinium 62.5 mcg/actuation 1 inh inhalation DAILY 03/28/23 07/18/23 History blister powder for inhalation (Incruse Ellipta) Magic Mouthwash 300 mL mouthwash 10 ml mucous membrane ACHS PRN 05/28/23 07/18/23 History dysphagiea potassium chloride 20 mEq 20 meq PO QAM 06/19/23 07/18/23 History tablet,extended release(part/cryst) fentanyl 50 mcg/hr transdermal 2 patch transdermal Q72H 07/02/23 07/18/23 History patch hydromorphone 4 mg tablet 4 mg PO Q4H PRN Breakthrough Pain 07/02/23 07/18/23 History pantoprazole 40 mg tablet,delayed 40 mg PO BID 07/02/23 07/18/23 History release doxycycline hyclate 100 mg tablet 100 mg PO BID #12 tabs 07/14/23 07/18/23 Rx dexamethasone 4 mg tablet 4 mg PO UD 07/18/23 07/18/23 History ibuprofen 800 mg tablet 800 mg PO Q8H PRN Pain, Moderate 07/18/23 07/18/23 History promethazine 25 mg tablet 25 mg PO Q6H PRN n/v 07/18/23 07/18/23 History Patient History Medical History Pneumonia Fever Chest fullness Dysphasia Pneumonia Chest pain Community acquired pneumonia Chronic low back pain Chronic cough Pseudocholinesterase deficiency Encounter for pre-operative examination Pancytopenia Primary adenocarcinoma of upper lobe of right lung (10/03/22) Endometriosis of the uterus, unspecified Asthma ADHD Tobacco abuse Systemic lupus erythematosus Surgical History H/O right wrist surgery H/O: hysterectomy History of cholecystectomy Hx of appendectomy H/O tubal ligation S/P bronchoscopy Family History Mother Cancer Breast Grandmother (Maternal) Cancer Lung Social History Smoking Status: Current every day smoker Tobacco Type: Cigarettes Cigarettes Per Day: 1 ppd; Second Hand Exposure: Yes; Do You Dip or Chew Tobacco: No; Hx Alcohol Use: No Hx Substance Use: No Preferred Language: Russian Communication Ability: Effective Visual Impairment: No Limitations Hearing Ability: Normal Certified Pedorthotist Required: No Beliefs That Will Affect Care: None marital status: Single Current Living Situation: Spouse Current Living Situation Comment: engaged current occupational status: unemployed 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
[2023-07-21] MEDS: ACETAMINOPHEN 325 MG TAB PO PRN ×2 (16:57→21:15)
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
[2023-07-21] MEDS: ENOXAPARIN INJ 40 MG/0.4 ML SYR SQ SCH (18:45)
[2023-07-21] MEDS ORDERED: NALOXONE HCL 0.4 MG/1 ML VIAL/CARP IV PRN (22:18)
[2023-07-22] MEDS: PROMETHAZINE HCL 12.5 MG in SODIUM CHLORIDE 0.9% 50 ML IV PRN ×3 (00:51→18:07)
[2023-07-22] MEDS: HYDROmorphone HCL 2 MG TAB PO PRN ×7 (02:12→21:07)
[2023-07-22] MEDS: LORazepam 1 MG TAB PO PRN ×3 (02:15→18:07)
[2023-07-22] MEDS: HYDROmorphone INJ 1 MG/ML SYRINGE IV PRN ×7 (03:28→23:37)
[2023-07-22] MEDS: FLUTICASONE/VILANTEROL 200/25MCG 14 PUFFS/INHALER INH SCH (07:18)
[2023-07-22] MEDS: ACETAMINOPHEN 325 MG TAB PO PRN ×3 (07:18→15:06)
[2023-07-22] MEDS: POTASSIUM CHLORIDE CRTAB 20 MEQ TABCR PO SCH (07:19)
[2023-07-22] MEDS: FOLIC ACID 1 MG TAB PO SCH (07:19)
[2023-07-22] MEDS: PANTOprazole 40 MG TAB PO SCH ×2 (07:19→19:38)
[2023-07-22] MEDS: IBUPROFEN 800 MG TAB PO PRN ×2 (07:19→17:13)
[2023-07-22] MEDS: CHECK fentaNYL PATCH PLACEMENT SCH ×6 (07:20→23:39)
[2023-07-22] MEDS: DOCUSATE SODIUM/SENNA 50/8.6MG TAB PO SCH ×3 (07:20→19:38)
[2023-07-22] MEDS: UMECLIDINIUM BROMIDE 62.5MCG/BLISTER 7 PUFFS/INHALER INH SCH (07:20)
[2023-07-22] MEDS: HEPARIN 100 UNIT/ML 5ML FLUSH FLUSH PRN ×7 (07:21→20:17)
--- NOTE | 2023-07-22 11:03 | Hospitalist Progress Note ---
Date of Service July 22, 2023 Assessment & Plan (1) Cancer related pain: Plan: Ms. 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 She had #2/10 radiation to her left iliac crest on with persistent pain since. Additional PMH includes chronic pancytopenia (baseline hemoglobin 10-11), history of PE ( not on anticoagulation)endometrial cancer status post surgery, prediabetes, SLE, cancer pain on narcotics, ADD/mood disorder, pseudocholinesterase deficiency, esophageal ulcer as per records, ongoing tobacco use. Follows with palliative medicine as an outpatient for symptom management. She has had 18 admissions in the last year. Primary adenocarcinoma of lung: Mets to brain and bone: New Metastatic Lesion: Chronic Followed with Dr. Charlton, now with [facility] and trying to establish care with Dr. David for another opinion scheduled 08/17/23 Overall poor prognosis New lesion identified on face CT: 1. A 2.5 x 2.5 cm destructive lesion centered within the ramus of the right hemimandible consistent with metastatic disease. No evidence for pathologic fracture at this time. 2. Re-demonstration of the 13 mm intracranial metastatic focus within the right temporal lobe. Will involve ST for safe swallowing techniques Acute on chronic pain Outpatient regimen Dilaudid 4 mg p.o. every 4 as needed, Ativan 0.5 mg p.o. 3 times daily Fentanyl TD patch recently increased from 50 mcg to 100 mcg 07/17; and now up to 112 mcg as of 07/21 Follows with Palliative medicine as outpatient; re-involve while here Involve pain management for additional eval; Current pain regimen 6mg po q3hr mg Dilaudid and 2mg IV dilaudid q3hr for breakthrough pain Has been put on bowel regimen Continue with anxiolytic appreciate palliative and pain management assistance (2) Primary adenocarcinoma of upper lobe of right lung: Plan: Current plan is to resume outpatient therapy once stable and discharged from hospital Patient also planning on getting a third opinion regarding chemo regimen from Dr. David (3) Metastasis to brain: Plan: Metastatic lesions in the brain and in the bones was shown to the patient's through the computer imaging Denies any headache Plan Intractable N/V: improved continue prn phenergan Hypomagnesemia: repleted Hypokalemia: repleted, check bmp Tobacco use: Chronic Currently smoking 5 cigarettes per day Smoking cessation recommended Prescribed Ellipta, Advair; continue Albuterol PRN; continue Disposition: PCP: Dr. Blake CODE STATUS: Full code VTE prophylaxis: Lovenox 40 mg subcu daily Prognosis remains extremely poor Pt was seen and examined in collaboration with Dr. Tinoco, please see addendum A total of 44 minutes was spent coordinating, documenting, and providing care for this patient excluding time spent in the performance of separately billed services. This included personally viewing all current laboratories and imaging studies, medication reconciliation, outpatient chart review, and discussion with specialists. Admission and Anticipated Discharge Date Admission Date: July 18, 2023 Supervising Physician Co-Signing Physician Notes Pt seen and examined by myself, Yaquelin Tinoco MD on the day of service. Care was coordinated with Megha Griffiths PA-C. 43yoF with metastatic lung cancer, known to the service. Presented with chronic cancer related pain in hips and leg, she believes related to her radiation treatments. Denies acute concerns today, states that her pain is slowly getting better. On exam, pleasant no acute distress. RRR, breath sounds clear. Hypokalemia and hypomagnesemia noted- replete as needed. Continue pain control as ordered. Appreciate specialty recs. Otherwise as above. Subjective Patient was seen and examined in room 308. Follow-up metastatic cancer related pain. Currently she states she feels, "groggy." She recently received pain medication. She currently is in pain but feels it is manageable. She is afraid of getting constipated and asking for increased frequency of medications. She denies fever, chills, sweats, chest pain, shortness breath, nausea or vom iting. Review of Systems Review of Systems: All systems reviewed & are unremarkable except as noted in HPI & below Physical Exam Physical Exam: Gen: WD/WN, patient is drowsy, but awakes and is conversive to verbal stimulation, NAD, A&O x3 HEENT: Normocephalic, atraumatic, conjunctivae moist, sclerae anicteric, mucous membranes moist. Lung: Clear to Auscultation bilaterally, no wheezes/rales/rhonchi Heart: Regular rate, regular rhythm, no murmurs, rubs, or gallops Abdomen: Soft, NT, ND +BS x 4 Extremities: No edema Skin: Warm, no rash, negative turgor. Results & Data Results & Data Vital Signs (Past 12 Hours) Vital Signs Temp Pulse Resp BP Pulse Ox O2 Del Method 07/22/23 07:52 36.9 C 104 H 16 129/84 Room Air 07/22/23 07:15 Room Air 07/22/23 03:16 36.8 C 89 14 96 Room Air Medications Administered Current Inpatient Medications Acetaminophen (Acetaminophen 325 Mg Tab) 650 mg PO Q4H PRN PRN Reason: Pain or Fever Stop: 08/17/23 11:37 Last Admin: 07/22/23 07:18 Dose: 650 mg Al Hydrox/Mg Hydrox/Simethicone (Aluminum/Magnesium Susp 30 Ml Udc) 15 ml PO Q4H PRN PRN Reason: Dyspepsia Stop: 08/17/23 11:37 Albuterol (Albuterol Hfa 8 Gm Inhaler) 2 puffs INH Q4H PRN PRN Reason: Shortness Of Breath Or Wheezing Stop: 08/17/23 12:40 Enoxaparin Sodium (Enoxaparin Inj 40 Mg/0.4 Ml Syr) 40 mg SQ Q24H MATI Stop: 08/20/23 17:59 Last Admin: 07/21/23 18:45 Dose: 40 mg Fentanyl (Fentanyl 100 Mcg/Hr Tdsy) 100 mcg TD Q72H MATI Stop: 08/04/23 01:59 Last Admin: 07/21/23 01:58 Dose: 100 mcg Fentanyl (Fentanyl 12 Mcg/Hr Tdsy) 12 mcg TD Q72H MATI Stop: 08/04/23 01:59 Last Admin: 07/21/23 01:56 Dose: 12 mcg Fluticasone/Vilanterol (Fluticasone/Vilanterol 200/25mcg 14 Puffs/Inhaler) 1 puffs INH DAILY MATI Stop: 08/18/23 08:59 Last Admin: 07/22/23 07:18 Dose: 1 puffs Folic Acid (Folic Acid 1 Mg Tab) 1 mg PO DAILY MATI Stop: 08/19/23 08:59 Last Admin: 07/22/23 07:19 Dose: 1 mg Heparin Sodium (Porcine) (Heparin 100 Unit/Ml 5ml Flush) 5 ml FLUSH PRN PRN PRN Reason: Flush Stop: 08/21/23 06:56 Last Admin: 07/22/23 10:04 Dose: 5 ml Hydromorphone HCl (Hydromorphone Inj 1 Mg/Ml Syringe) 2 mg IV Q3H PRN PRN Reason: Pain Stop: 08/02/23 11:54 Last Admin: 07/22/23 10:04 Dose: 2 mg Hydromorphone HCl (Hydromorphone Hcl 2 Mg Tab) 6 mg PO Q3H PRN PRN Reason: Pain Stop: 08/02/23 11:54 Last Admin: 07/22/23 08:25 Dose: 6 mg Promethazine HCl 12.5 mg/ (Sodium Chloride) 50.5 mls @ 202 mls/hr IV Q6H PRN PRN Reason: Nausea And Vomiting Stop: 08/18/23 16:05 Last Infusion: 07/22/23 09:02 Dose: Infused Ibuprofen (Ibuprofen 800 Mg Tab) 800 mg PO Q8H PRN PRN Reason: Pain, Moderate Stop: 08/18/23 15:45 Last Admin: 07/22/23 07:19 Dose: 800 mg Lorazepam (Lorazepam 1 Mg Tab) 1 mg PO TID PRN PRN Reason: Anxiety Stop: 08/18/23 10:18 Last Admin: 07/22/23 10:04 Dose: 1 mg Magnesium Hydroxide (Magnesium Hydroxide Susp 30 Ml Udc) 30 ml PO Q12H PRN PRN Reason: Constipation Stop: 08/17/23 11:37 Miscellaneous (Check Fentanyl Patch Placement) 1 each N/A QS MATI Stop: 08/17/23 15:59 Last Admin: 07/22/23 07:20 Dose: 1 each Miscellaneous (Check Fentanyl Patch Placement) 1 each N/A QS MATI Stop: 08/19/23 15:59 Last Admin: 07/22/23 07:20 Dose: 1 each Miscellaneous (Fentanyl Patch Remove & Waste (100mcg/Hr Patch)) 1 each N/A Q72H MATI Stop: 08/20/23 01:58 Last Admin: 07/21/23 02:26 Dose: Not Given Miscellaneous (Fentanyl Patch Remove & Waste 12mcg/Hr Patch) 1 each N/A Q72H MATI Stop: 08/20/23 01:58 Last Admin: 07/21/23 02:24 Dose: 1 each Naloxone HCl (Naloxone Hcl 0.4 Mg/1 Ml Vial/Carp) 0.4 mg IV Q4H PRN PRN Reason: Oversedation/Resp Depression Stop: 08/20/23 22:17 Pantoprazole Sodium (Pantoprazole 40 Mg Tab) 40 mg PO BID [facility]; Protocol Stop: 08/17/23 20:59 Last Admin: 07/22/23 07:19 Dose: 40 mg Polyethylene Glycol (Polyethylene (Miralax) 17 Gm Pack) 17 gm PO DAILY PRN PRN Reason: Constipation Stop: 08/17/23 11:37 Potassium Chloride (Potassium Chloride Crtab 20 Meq Tabcr) 20 meq PO QAM [facility] Stop: 08/18/23 10:29 Last Admin: 07/22/23 07:19 Dose: 20 meq Senna/Docusate Sodium (Docusate Sodium/Senna 50/8.6mg Tab) 1 tab PO TID [facility] Stop: 08/21/23 13:59 Umeclidinium [place] (Umeclidinium [place] 62.5mcg/Blister 7 Puffs/Inhaler) 1 puffs INH DAILY [facility] Stop: 08/18/23 08:59 Last Admin: 07/22/23 07:20 Dose: 1 puffs
[2023-07-22] MEDS: ENOXAPARIN INJ 40 MG/0.4 ML SYR SQ SCH (17:11)
[2023-07-22] MEDS: BENZONATATE 100 MG CAPSULE PO PRN (21:07)
[2023-07-23] MEDS: HYDROmorphone HCL 2 MG TAB PO PRN ×7 (01:42→23:37)
[2023-07-23] MEDS: LORazepam 1 MG TAB PO PRN ×3 (03:59→21:43)
[2023-07-23] MEDS: IBUPROFEN 800 MG TAB PO PRN ×3 (03:59→23:37)
[2023-07-23] MEDS: HYDROmorphone INJ 1 MG/ML SYRINGE IV PRN ×6 (04:00→22:54)
[2023-07-23] MEDS: HEPARIN 100 UNIT/ML 5ML FLUSH FLUSH PRN ×2 (05:57→08:57)
[2023-07-23 06:40] LABS: Hematocrit (blood only) 22.8 % (37.0-47.0); Hemoglobin 7.5 g/dl (12.0-16.0); Mean Corpuscular Hemoglobin 29.8 pg (25.0-34.0); Mean Corpuscular Hgb Conc 32.9 g/dL (32.0-36.0); Mean Corpuscular Volume 90.5 fL (80.0-100.0); Mean Platelet Volume 10.2 fL (9.4-12.4); Platelet Count 48 K/uL (130-400); RDW Coefficient of Variation 14.4 % (11.5-14.5); RDW Standard Deviation 47.9 fL (36.4-46.3); Red Blood Count 2.52 M/uL (4.20-5.40); White Blood Count 2.51 K/ul (4.8-10.8)
[2023-07-23 06:53] LABS: BUN Creatinine Ratio 19.2 (10-20); Calcium 8.1 mg/dl (8.6-10.3); Creatinine Clr Calc Pharmacy 147.3 ml/min; Est GFR (African American) 133.7 ml/min; Est GFR (Non-African American) 115.4 ml/min; Magnesium 1.1 mg/dl (1.7-2.4); Phosphorus 3.7 mg/dl (2.5-4.9); Potassium 3.4 mmol/L (3.5-5.1)
[2023-07-23] MEDS: PROMETHAZINE HCL 12.5 MG in SODIUM CHLORIDE 0.9% 50 ML IV PRN (07:56)
[2023-07-23] MEDS: UMECLIDINIUM BROMIDE 62.5MCG/BLISTER 7 PUFFS/INHALER INH SCH (07:58)
[2023-07-23] MEDS: FLUTICASONE/VILANTEROL 200/25MCG 14 PUFFS/INHALER INH SCH (07:58)
[2023-07-23] MEDS: CHECK fentaNYL PATCH PLACEMENT SCH ×6 (07:59→22:54)
[2023-07-23] MEDS: DOCUSATE SODIUM/SENNA 50/8.6MG TAB PO SCH ×4 (07:59→20:06)
[2023-07-23] MEDS: PANTOprazole 40 MG TAB PO SCH ×3 (07:59→20:06)
[2023-07-23] MEDS: FOLIC ACID 1 MG TAB PO SCH ×2 (07:59→08:01)
[2023-07-23] MEDS: POTASSIUM CHLORIDE CRTAB 20 MEQ TABCR PO SCH ×2 (08:10→20:06)
[2023-07-23] MEDS ORDERED: POTASSIUM CHLORIDE CRTAB 20 MEQ TABCR PO STA (10:17)
[2023-07-23] MEDS: MAGNESIUM SULFATE / D5W 1 GM/100 ML BAG IV SCH ×4 (10:51→17:29)
[2023-07-23 11:14] LABS: Ferritin 373.1 ng/ml (8-388)
[2023-07-23 11:42] LABS: Folate (Folic Acid),Ser orPlas 10.3 ng/ml (>5.38)
[2023-07-23] MEDS: MAGNESIUM CHLORIDE W/CALCIUM 64MG DELAYED REL TAB PO SCH ×2 (11:51→20:07)
--- NOTE | 2023-07-23 16:27 | Hospitalist Progress Note ---
Date of Service July 23, 2023 Assessment & Plan (1) Cancer related pain: Plan: Ms. 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 She had #2/10 radiation to her left iliac crest on with persistent pain since. Additional PMH includes chronic pancytopenia (baseline hemoglobin 10-11), history of PE ( not on anticoagulation)endometrial cancer status post surgery, prediabetes, SLE, cancer pain on narcotics, ADD/mood disorder, pseudocholinesterase deficiency, esophageal ulcer as per records, ongoing tobacco use. Follows with palliative medicine as an outpatient for symptom management. She has had 18 admissions in the last year. Primary adenocarcinoma of lung: Mets to brain and bone: New Metastatic Lesion: Chronic Followed with Dr. Charlton, now with [facility] and trying to establish care with Dr. David for another opinion scheduled 08/17/23 Overall poor prognosis New lesion identified on face CT: 1. A 2.5 x 2.5 cm destructive lesion centered within the ramus of the right hemimandible consistent with metastatic disease. No evidence for pathologic fracture at this time. 2. Re-demonstration of the 13 mm intracranial metastatic focus within the right temporal lobe. Will involve ST for safe swallowing techniques Acute on chronic pain Outpatient regimen Dilaudid 4 mg p.o. every 4 as needed, Ativan 0.5 mg p.o. 3 times daily Fentanyl TD patch recently increased from 50 mcg to 100 mcg 07/17; and now up to 112 mcg as of 07/21 Follows with Palliative medicine as outpatient; re-involve while here Involve pain management for additional eval; Current pain regimen 6mg po q3hr mg Dilaudid and 2mg IV dilaudid q3hr for breakthrough pain Has been put on bowel regimen Continue with anxiolytic appreciate palliative and pain management assistance Anemia Chronic but hgb decreasing this admission from 11 to 7.5 Iron panel, folate and B12- follow Follow hgb with AM labs (2) Primary adenocarcinoma of upper lobe of right lung: Plan: Current plan is to resume outpatient therapy once stable and discharged from hospital Patient also planning on getting a third opinion regarding chemo regimen from Dr. David (3) Metastasis to brain: Plan: Metastatic lesions in the brain and in the bones was shown to the patient through the computer imaging by previous provider Denies any headache Plan Intractable N/V: improved continue prn phenergan Hypomagnesemia: replete as needed Hypokalemia: replete as needed Tobacco use: Chronic Currently smoking 5 cigarettes per day Smoking cessation recommended Prescribed Ellipta, Advair; continue Albuterol PRN; continue Disposition: CODE STATUS: Full code VTE prophylaxis: Lovenox 40 mg subcu daily Prognosis remains extremely poor Admission and Anticipated Discharge Date Admission Date: July 18, 2023 Subjective Pt was seen laying in bed. Stated that she was feeling better. Initially denied dizziness but later noted that she was a bit dizzy with ambulation and had been trying to stay hydrated to help. Review of Systems Review of Systems: All systems reviewed & are unremarkable except as noted in Subjective Physical Exam Physical Exam: General: Alert, oriented. No acute distress Skin: No noted rashes or bruises Psych: Appropriate mood and affect Neuro: No gross deficits HEENT: NC/AT CV: RRR, Normal s1, s2. Resp: Breath sounds clear bilaterally, no increased effort of breathing. Abdomen: Soft, nontender Extremities: moves extremities bilaterally. Results & Data Results & Data Vital Signs (Past 12 Hours) Vital Signs Temp Pulse Resp BP Pulse Ox O2 Del Method O2 Flow Rate 07/23/23 14:34 36.5 C 118 H 16 127/79 95 Room Air 07/23/23 07:50 Nasal Cannula 2 07/23/23 07:25 36.9 C 112 H 16 126/80 96 Nasal Cannula 2
[2023-07-23] MEDS: ENOXAPARIN INJ 40 MG/0.4 ML SYR SQ SCH (17:29)
[2023-07-23] MEDS ORDERED: NSS + 20MEQ KCL 20 MEQ/1,000 ML BAG IV ONE (20:08)
--- NOTE | 2023-07-23 20:25 | Communication Note ---
Date of Service: July 23, 2023 Patient tachycardic since a.m. as per RN. Current heart rate 130s No chest pain, no unusual shortness of breath as per patient. Usual abdominal pain, no BM for 3 days EKG as per my interpretation rate 130, sinus tachycardia, normal axis, T wave flattening inferior and septal leads, PVCs Procalcitonin 0.6 AP Sinus tachycardia Occasional PVCs Narcotic induced constipation Possible sepsis given procalcitonin, no obvious source for now Medical telemetry transfer Initiate beta-leeanne to suppress ectopy Bowel regimen, naltrexone CS, cefepime for now
[2023-07-23] MEDS ORDERED: LACTULOSE SYRUP 30 GM/45 ML UDP PO STA (21:01)
[2023-07-23] MEDS ORDERED: METHYLNALTREXONE BROMIDE 12 MG/0.6 ML VIAL SQ STA (21:01)
[2023-07-23 21:02] LABS: Hematocrit (blood only) 24.4 % (37.0-47.0); Hemoglobin 8.1 g/dl (12.0-16.0); Mean Corpuscular Hgb Conc 33.2 g/dL (32.0-36.0); Mean Corpuscular Volume 90.4 fL (80.0-100.0); Mean Platelet Volume 10.7 fL (9.4-12.4); Platelet Count 47 K/uL (130-400); RDW Coefficient of Variation 14.7 % (11.5-14.5); RDW Standard Deviation 48.4 fL (36.4-46.3)
[2023-07-23 21:18] LABS: Calcium 8.4 mg/dl (8.6-10.3); Est GFR (African American) 121.8 ml/min; Est GFR (Non-African American) 105.1 ml/min; Magnesium 2.1 mg/dl (1.7-2.4); Potassium 3.9 mmol/L (3.5-5.1)
[2023-07-23] MEDS: BENZONATATE 100 MG CAPSULE PO PRN (21:42)
[2023-07-23] MEDS: METOPROLOL TARTRATE 25 MG TAB PO SCH (21:43)
[2023-07-23 22:16] LABS: Basophils # (auto) 0.01 K/uL (0.00-0.20); Basophils % (auto) 0.4 %; Eosinophils % (auto) 3.8 %; Immature Granulocytes # (auto) 0.16 K/uL (0.01-0.20); Immature Granulocytes % (auto) 6.2 %; Lymphocytes # (auto) 0.34 K/uL (1.20-3.40); Lymphocytes % (auto) 13.1 %; Monocytes # (auto) 0.16 K/uL (0.11-0.59); Monocytes % (auto) 6.2 %; Neutrophils # (auto) 1.83 K/uL (1.40-6.50); Neutrophils % (auto) 70.3 %
[2023-07-23] MEDS: CEFEPIME 2,000 MG in SYRINGE 0 ML IV SCH (22:23)
[2023-07-23 23:57] LABS: Appearance Urine Clear (Clear); Bilirubin Urine Negative (Negative); Blood Urine Negative (Negative); Color Urine Yellow; Glucose Urine UA Negative (Negative); Ketones Urine Negative (Negative); Leukocyte Esterase Urine Negative (Negative); Nitrite Urine Negative (Negative); Protein Urine Negative (Negative); Urobilinogen Urine Negative (Negative); pH Urine 5.5 (4.5-7.5)
[2023-07-24] MEDS: HYDROmorphone INJ 1 MG/ML SYRINGE IV PRN ×7 (02:04→21:03)
[2023-07-24] MEDS: fentaNYL 100 MCG/HR TDSY TD SCH (02:05)
[2023-07-24] MEDS: fentaNYL 12 MCG/HR TDSY TD SCH (02:06)
[2023-07-24] MEDS: [UNRECOGNIZED DRUG - REMARK] SCH (02:06)
[2023-07-24] MEDS: [UNRECOGNIZED DRUG - REMARK] SCH (02:06)
[2023-07-24] MEDS: HYDROmorphone HCL 2 MG TAB PO PRN ×7 (02:34→23:03)
[2023-07-24] MEDS: CEFEPIME 2,000 MG in SYRINGE 0 ML IV SCH ×3 (05:21→21:03)
[2023-07-24] MEDS: HEPARIN 100 UNIT/ML 5ML FLUSH FLUSH PRN (05:21)
[2023-07-24 07:21] LABS: Hematocrit (blood only) 23.3 % (37.0-47.0); Hemoglobin 7.3 g/dl (12.0-16.0); Mean Corpuscular Hemoglobin 29.1 pg (25.0-34.0); Mean Corpuscular Hgb Conc 31.3 g/dL (32.0-36.0); Mean Corpuscular Volume 92.8 fL (80.0-100.0); Mean Platelet Volume 9.8 fL (9.4-12.4); Platelet Count 45 K/uL (130-400); RDW Coefficient of Variation 14.9 % (11.5-14.5); RDW Standard Deviation 49.9 fL (36.4-46.3); Red Blood Count 2.51 M/uL (4.20-5.40); White Blood Count 2.11 K/ul (4.8-10.8)
[2023-07-24] MEDS ORDERED: IRON SUCROSE 200 MG in 0.9 % SODIUM CHLORIDE 100 ML IV ONE (07:55)
[2023-07-24 07:56] LABS: BUN Creatinine Ratio 15.2 (10-20); Calcium 8.3 mg/dl (8.6-10.3); Creatinine Clr Calc Pharmacy 116.8 ml/min; Est GFR (African American) 123.6 ml/min; Est GFR (Non-African American) 106.7 ml/min; Magnesium 1.7 mg/dl (1.7-2.4); Phosphorus 4.3 mg/dl (2.5-4.9); Potassium 3.9 mmol/L (3.5-5.1)
[2023-07-24] MEDS: CHECK fentaNYL PATCH PLACEMENT SCH ×4 (08:18→17:05)
[2023-07-24] MEDS: UMECLIDINIUM BROMIDE 62.5MCG/BLISTER 7 PUFFS/INHALER INH SCH (08:19)
[2023-07-24] MEDS: PANTOprazole 40 MG TAB PO SCH ×2 (08:20→20:00)
[2023-07-24] MEDS: POTASSIUM CHLORIDE CRTAB 20 MEQ TABCR PO SCH ×2 (08:20→20:00)
[2023-07-24] MEDS: METOPROLOL TARTRATE 25 MG TAB PO SCH ×2 (08:21→20:00)
[2023-07-24] MEDS: DOCUSATE SODIUM/SENNA 50/8.6MG TAB PO SCH ×3 (08:21→20:01)
[2023-07-24] MEDS: FLUTICASONE/VILANTEROL 200/25MCG 14 PUFFS/INHALER INH SCH (08:21)
[2023-07-24] MEDS: FOLIC ACID 1 MG TAB PO SCH (08:21)
[2023-07-24] MEDS: MAGNESIUM CHLORIDE W/CALCIUM 64MG DELAYED REL TAB PO SCH ×2 (08:21→20:00)
[2023-07-24] MEDS: SODIUM CHLORIDE 0.9% 1,000 ML IV SCH ×2 (10:56→23:04)
--- NOTE | 2023-07-24 13:37 | Hospitalist Progress Note ---
Date of Service July 24, 2023 Assessment & Plan (1) Cancer related pain: Plan: Ms. 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 She had #2/10 radiation to her left iliac crest on with persistent pain since. Additional PMH includes chronic pancytopenia (baseline hemoglobin 10-11), history of PE ( not on anticoagulation)endometrial cancer status post surgery, prediabetes, SLE, cancer pain on narcotics, ADD/mood disorder, pseudocholinesterase deficiency, esophageal ulcer as per records, ongoing tobacco use. Follows with palliative medicine as an outpatient for symptom management. She has had 18 admissions in the last year. Primary adenocarcinoma of lung: Mets to brain and bone: New Metastatic Lesion: Chronic Followed with Dr. Charlton, now with [facility] and trying to establish care with Dr. David for another opinion scheduled 08/17/23 Overall poor prognosis New lesion identified on face CT: 1. A 2.5 x 2.5 cm destructive lesion centered within the ramus of the right hemimandible consistent with metastatic disease. No evidence for pathologic fracture at this time. 2. Re-demonstration of the 13 mm intracranial metastatic focus within the right temporal lobe. Will involve ST for safe swallowing techniques Acute on chronic pain Outpatient regimen Dilaudid 4 mg p.o. every 4 as needed, Ativan 0.5 mg p.o. 3 times daily Fentanyl TD patch recently increased from 50 mcg to 100 mcg 07/17; then to 112 mcg as of 07/21 and 07/24 increased to 125mcg Follows with Palliative medicine as outpatient; re-involve while here Involve pain management for additional eval; Current pain regimen 6mg po q3hr mg Dilaudid and 2mg IV dilaudid q3hr for breakthrough pain Has been put on bowel regimen Continue with anxiolytic appreciate palliative and pain management assistance 07/24: Pt seen by Palliative Care once more, fentanyl patch dose increased to 125mcg. Tachycardia Noted on 07/23. Pt known to be tachycardic, previously evaluated by cardiology at one prior admission Likely multifactorial in setting of cancer, uncontrolled pain and chronic anemia, currently worsening. Was started on metoprolol overnight. Continue to monitor. (2) Primary adenocarcinoma of upper lobe of right lung: Plan: Current plan is to resume outpatient therapy once stable and discharged from hospital Patient also planning on getting a third opinion regarding chemo regimen from Dr. David 07/24- per Palliative, encouraged pt to get third opinion from [facility] where she has been [place] Pancytopenia Pt with noted worsening anemia, thrombocytopenia and leukopenia. Has occurred in the past. Holding dvt prophylaxis Consider oncology recall inpatient Per discussion with palliative on 07/24, pt to seek third opinion from [facility] rather than Dr David (3) Metastasis to brain: Plan: Metastatic lesions in the brain and in the bones was shown to the patient's through the computer imaging Denies any headache Plan Intractable N/V: improved continue prn phenergan Hypomagnesemia: repleted Hypokalemia: repleted, check bmp Tobacco use: Chronic Currently smoking 5 cigarettes per day Smoking cessation recommended Prescribed Ellipta, Advair; continue Albuterol PRN; continue CODE STATUS: Full code, discussed multiple times VTE prophylaxis: Lovenox 40 mg subcu daily, currently on hold with pancytopenia Admission and Anticipated Discharge Date Admission Date: July 18, 2023 Subjective Pt seen with at bedside. Extensive discussion of labs, anemia. Tachycardic overnight. Pt known to be tachycardic in the past. Stated she was waiting on her pain meds. Review of Systems Review of Systems: All systems reviewed & are unremarkable except as noted in Subjective Physical Exam Physical Exam: General: Alert, oriented. No acute distress Skin: No noted rashes or bruises Psych: Appropriate mood and affect Neuro: No gross deficits HEENT: NC/AT CV: RRR, Normal s1, s2. Resp: Breath sounds clear bilaterally, no increased effort of breathing. Abdomen: Soft, nontender Extremities: moves extremities bilaterally. Results & Data Results & Data Vital Signs (Past 12 Hours) Vital Signs Temp Pulse Pulse Resp BP Pulse Ox O2 Del Method 07/24/23 12:09 101 H 07/24/23 12:06 36.7 C 97 H 18 105/71 91 Room Air 07/24/23 07:46 36.7 C 100 H 20 93/58 L 90 Room Air 07/24/23 02:19 37.1 C 100 H 18 109/66 94 Nasal Cannula O2 Flow Rate 07/24/23 12:09 07/24/23 12:06 07/24/23 07:46 07/24/23 02:19 2
[2023-07-24] MEDS: IBUPROFEN 800 MG TAB PO PRN ×2 (13:59→22:24)
[2023-07-24 14:18] LABS: Hematocrit (blood only) 23.4 % (37.0-47.0); Hemoglobin 7.5 g/dl (12.0-16.0)
[2023-07-24] MEDS: PROMETHAZINE HCL 12.5 MG in SODIUM CHLORIDE 0.9% 50 ML IV PRN (14:31)
[2023-07-24] MEDS: fentaNYL 25 MCG/HR TDSY TD SCH (14:40)
--- NOTE | 2023-07-24 14:47 | Palliative Care Progress Note ---
Date of Service July 24, 2023 Assessment & Plan (1) Cancer related pain: Plan: Suboptimal relief of severe cancer related pain with fentanyl transdermal patch at 112 mcg/h. Continues to use as needed IV and oral Dilaudid for breakthrough pain. Admits to steadily watching clinic for next available dose. Will increase transdermal fentanyl very gently to 125 mcg and reassess on Thursday. No change in interval as needed Dilaudid for now. (2) Dyspnea and respiratory abnormalities: Plan: Possible transfusion needed, lab work pending for the afternoon (3) Cancer-related breakthrough pain: (4) Palliative care by specialist: (5) Metastatic adenocarcinoma to brain: (6) Cancer, metastatic to bone: (7) Advanced care planning/counseling discussion: Plan: Dr David (The onc at ) is in [place] for 3 weeks now so she wont see him until July, but the nurses said they had spoken to him and they felt she should probably go to a tertiary center. I met with her and face to face for 25min. Ritchie told me she had gone to [facility] for 2nd opinion in past, so will plan to return to that provider. Ritchie is still very firmly entrenched in wanting more chemo and believes there is a cure but it is a medicine we have not given her yet. as long as people offer her chemo she will never say no. I suggested tertiary care eval. She was seen before at [facility] so I told her to call that oncologist for a follow up. She also asked about other centers so I told her [facility] or ?[facility]. (8) Therapeutic opioid induced constipation: Plan: Inrease to Senna S 2 tabs PO TID + daily MIralax. Continue prn MOM (9) Dysphagia: (10) Primary adenocarcinoma of upper lobe of right lung: Plan TDF to 125mcg No change to prn Dilaudid PO and IV Await labs to see if transfusion needed, mgt per primary team Pt and advised of [facility] for 3-4th opinion oncology - she will return to see [facility]. Thank you for allowing us to participate in the ongoing care of this patient. Please don't hesitate to call or page with any additional concerns. Dr. Marissa Hickman DNP Director, Palliative Care Admission and Anticipated Discharge Date Admission Date: July 18, 2023 Mani Dugan is at bedside, together with her . She is feeling more tired. He reports that her cell counts have been low and they are waiting for repeat blood work to determine if she may need a transfusion. She reports that she does not feel the increase in her transdermal fentanyl has offered any significant improvement in her pain. She continues to use both oral and IV Dilaudid for breakthrough pain on a regular basis and admits they are generally watching the clock to see when her next dose is due. She feels more tired. She still has trouble sleeping while in the hospital. Appetite has been okay but continues to have issues with swallowing certain textures. Denies nausea but notes that she has not had a BM in several days. Prior to that she had felt that she did not want to take her stool softeners or bowel regimen because she was having diarrhea due to her radiation. She has not resumed radiation. Her diarrhea has improved. She has not had escalation in regimen of stool softeners during this time Review of Systems Review of Systems: All systems reviewed & are unremarkable except as noted in Subjective Physical Exam Constitutional: + ill appearing, + physical limitations and cooperative Eyes: PERRL, conjunctivae normal, anicteric sclerae ENMT: Mouth: + oral mucosal abnormality, + dry oral mucous membranes and + poor dentition Neck: trachea midline, no thyromegaly Respiratory: normal effort at rest diminished throughout right chest port/accessed Cardiovascular: Rate/Rhythm: + tachycardic Gastrointestinal (Abdomen): BS+ non tender Musculoskeletal: LOCO gen weakness Skin: various tattoos pale but warm +clubbing Neurologic: AAOx3 slight trouble following long discussions Psychiatric: Fatigued, slightly anxious Results & Data Vital Signs (Past 12 Hours) Vital Signs Temp Pulse Pulse Resp BP Pulse Ox O2 Del Method 07/24/23 12:09 101 H 07/24/23 12:06 36.7 C 97 H 18 105/71 91 Room Air 07/24/23 07:46 36.7 C 100 H 20 93/58 L 90 Room Air Laboratory Results Data reviewed Diagnostic Findings Data reviewed PG Care Time/CCT Total # of Minutes Spent Total Time Spent: 75 Total Time Spent with Patient: Total time spent is greater than 50% in coordination of care (as documented) at patient's floor/unit and/or counseling patient: I spent 75 minutes overall addressing this case: 15 min in medical data review/discussion with referring provider(s) and/or preparation for the visit 15 min in direct interaction with the patient/exam 20 min in Advance Care Planning/Goals of Care discussions as detailed above in note (must be >16min) 10 min in subsequent review and synthesis of assessment and plan 15 min communicating with other providers regarding the patient's case: [facility] pall med and onc, primary team nursing. Advanced Care Planning 45932 Advanced Care Planning 30 Min [place] [address] SUB INP/OBS CARE 3/50MIN Patient Type Established History Comprehensive Exam Comprehensive Medical Decision Making High Complexity Diagnoses Cancer related pain G89.3 Dyspnea and respiratory abnormalities R06.00; R06.89 Cancer-related breakthrough pain G89.3 Palliative care by specialist Z51.5 Metastatic adenocarcinoma to brain C79.31 Cancer, metastatic to bone C79.51 Advanced care planning/counseling discussion Z71.89 Therapeutic opioid induced constipation K59.03; [id number] Dysphagia, unspecified type R13.10 Dysphagia type: unspecified Primary adenocarcinoma of upper lobe of right lung C34.11 Additional Codes Advanced Care Planning - 70369 Advanced Care Planning 30 Min: [id number] Advanced Care Planning 30 Min ([id number]) (9) Dysphagia Dysphagia type: unspecified Qualified Code(s): R13.10 - Dysphagia, unspecified
[2023-07-24] MEDS: ENOXAPARIN INJ 40 MG/0.4 ML SYR SQ SCH (17:08)
--- NOTE | 2023-07-24 17:26 | Electrocardiogram Report ---
Test Reason : Blood Pressure : / mmHG Vent. Rate : 132 BPM Atrial Rate : 132 BPM P-R Int : 124 ms QRS Dur : 082 ms QT Int : 304 ms P-R-T Axes : 048 -10 002 degrees QTc Int : 450 ms Sinus tachycardia with occasional Premature ventricular complexes Minimal voltage criteria for LVH, may be normal variant Nonspecific ST abnormality Abnormal ECG When compared with ECG of 18-JUL-2023 08:39, Premature ventricular complexes are now Present Vent. rate has increased BY 51 BPM Confirmed by Stephen Hudson ([id number]) on 07/24/2023 5:25:56 PM Referred By: REFERRED SELF Confirmed By:Christiano Hudson
[2023-07-24] MEDS: LORazepam 1 MG TAB PO PRN (19:56)
[2023-07-25] MEDS: CHECK fentaNYL PATCH PLACEMENT SCH ×6 (00:01→15:04)
[2023-07-25] MEDS: HYDROmorphone INJ 1 MG/ML SYRINGE IV PRN ×8 (02:58→22:33)
[2023-07-25] MEDS: HYDROmorphone HCL 2 MG TAB PO PRN ×6 (04:36→21:22)
[2023-07-25 05:16] LABS: Hematocrit (blood only) 22.4 % (37.0-47.0); Hemoglobin 7.2 g/dl (12.0-16.0); Mean Corpuscular Hgb Conc 32.1 g/dL (32.0-36.0); Mean Corpuscular Volume 90.3 fL (80.0-100.0); Mean Platelet Volume 10.3 fL (9.4-12.4); Platelet Count 45 K/uL (130-400); RDW Coefficient of Variation 14.9 % (11.5-14.5); RDW Standard Deviation 49.1 fL (36.4-46.3); Red Blood Count 2.48 M/uL (4.20-5.40); White Blood Count 2.01 K/ul (4.8-10.8)
[2023-07-25 05:24] LABS: Calcium 8.6 mg/dl (8.6-10.3); Creatinine Clr Calc Pharmacy 130.5 ml/min; Est GFR (African American) 129.8 ml/min; Magnesium 1.4 mg/dl (1.7-2.4); Phosphorus 3.9 mg/dl (2.5-4.9); Potassium 4.2 mmol/L (3.5-5.1)
[2023-07-25] MEDS: CEFEPIME 2,000 MG in SYRINGE 0 ML IV SCH ×2 (06:08→14:19)
[2023-07-25] MEDS: IBUPROFEN 800 MG TAB PO PRN ×2 (06:10→19:37)
[2023-07-25] MEDS: PROMETHAZINE HCL 12.5 MG in SODIUM CHLORIDE 0.9% 50 ML IV PRN ×2 (07:45→18:22)
[2023-07-25] MEDS: MAGNESIUM SULFATE / D5W 1 GM/100 ML BAG IV SCH ×2 (09:18→11:05)
[2023-07-25] MEDS: METOPROLOL TARTRATE 25 MG TAB PO SCH ×2 (09:22→19:37)
[2023-07-25] MEDS: PANTOprazole 40 MG TAB PO SCH ×2 (09:23→19:39)
[2023-07-25] MEDS: FLUTICASONE/VILANTEROL 200/25MCG 14 PUFFS/INHALER INH SCH (09:24)
[2023-07-25] MEDS: DOCUSATE SODIUM/SENNA 50/8.6MG TAB PO SCH ×3 (09:24→19:38)
[2023-07-25] MEDS: FOLIC ACID 1 MG TAB PO SCH (09:25)
[2023-07-25] MEDS: MAGNESIUM CHLORIDE W/CALCIUM 64MG DELAYED REL TAB PO SCH ×2 (09:25→19:38)
[2023-07-25] MEDS ORDERED: SODIUM CHLORIDE 0.9% 250 ML IV PRN (09:26)
[2023-07-25] MEDS: UMECLIDINIUM BROMIDE 62.5MCG/BLISTER 7 PUFFS/INHALER INH SCH (09:26)
[2023-07-25] MEDS: POTASSIUM CHLORIDE CRTAB 20 MEQ TABCR PO SCH ×2 (09:26→19:40)
[2023-07-25] MEDS: POLYETHYLENE (MIRALAX) 17 GM PACK PO SCH (09:26)
--- NOTE | 2023-07-25 10:07 | Hospitalist Progress Note ---
Date of Service July 25, 2023 Assessment & Plan (1) Cancer related pain: Plan: Ms. 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 She had #2/10 radiation to her left iliac crest on with persistent pain since. Additional PMH includes chronic pancytopenia (baseline hemoglobin 10-11), history of PE ( not on anticoagulation)endometrial cancer status post surgery, prediabetes, SLE, cancer pain on narcotics, ADD/mood disorder, pseudocholinesterase deficiency, esophageal ulcer as per records, ongoing tobacco use. Follows with palliative medicine as an outpatient for symptom management. She has had 18 admissions in the last year. Primary adenocarcinoma of lung: Mets to brain and bone: New Metastatic Lesion: Chronic Followed with Dr. Charlton, now with [facility] and trying to establish care with Dr. David for another opinion scheduled 08/17/23 Overall poor prognosis New lesion identified on face CT: 1. A 2.5 x 2.5 cm destructive lesion centered within the ramus of the right hemimandible consistent with metastatic disease. No evidence for pathologic fracture at this time. 2. Re-demonstration of the 13 mm intracranial metastatic focus within the right temporal lobe. Will involve ST for safe swallowing techniques Acute on chronic pain Outpatient regimen Dilaudid 4 mg p.o. every 4 as needed, Ativan 0.5 mg p.o. 3 times daily Fentanyl TD patch recently increased from 50 mcg to 100 mcg 07/17; then to 112 mcg as of 07/21 and 07/24 increased to 125mcg Follows with Palliative medicine as outpatient; re-involve while here Involve pain management for additional eval; Current pain regimen 6mg po q3hr mg Dilaudid and 2mg IV dilaudid q3hr for breakthrough pain Has been put on bowel regimen Continue with anxiolytic appreciate palliative and pain management assistance 07/24: Pt seen by Palliative Care once more, fentanyl patch dose increased to 125mcg. 07/25: States that pain is improved but still present, plans to follow up outpatient with oncology Tachycardia Noted on 07/23. Pt known to be tachycardic, previously evaluated by cardiology at one prior admission Likely multifactorial in setting of cancer, uncontrolled pain and chronic anemia, currently worsening. Was started on metoprolol overnight. Continue to monitor. 07/25-improving (2) Primary adenocarcinoma of upper lobe of right lung: Plan: Current plan is to resume outpatient therapy once stable and discharged from hospital Patient was also planning on getting a third opinion regarding chemo regimen from Dr. David 07/24- per Palliative, encouraged pt to get third opinion from [facility] where she [place] Pancytopenia Anemia Pt with noted worsening anemia, thrombocytopenia and leukopenia. Has occurred in the past. Holding dvt prophylaxis Consider oncology recall inpatient Per discussion with palliative on 07/24, pt to seek third opinion from [facility] rather than Dr David 07/25-transfused 1U pRBCs on 07/25 given pt's symptoms and hgb of 7.2 (3) Metastasis to brain: Plan: Metastatic lesions in the brain and in the bones was shown to the patient's through the computer imaging Denies any headache Plan Intractable N/V: improved continue prn phenergan Hypomagnesemia: repleted Hypokalemia: repleted, check bmp Tobacco use: Chronic Currently smoking 5 cigarettes per day Smoking cessation recommended Prescribed Ellipta, Advair; continue Albuterol PRN; continue CODE STATUS: Full code, discussed multiple times VTE prophylaxis: Lovenox 40 mg subcu daily, currently on hold with pancytopenia (in particular anemia, thrombocytopenia) Admission and Anticipated Discharge Date Admission Date: July 18, 2023 Subjective pt notes that she is having dizziness with ambulation. Occasional SOB. States she feels tired. AAOx3. pain still there but better controlled. Review of Systems Review of Systems: All systems reviewed & are unremarkable except as noted in Subjective Physical Exam Physical Exam: General: Alert, oriented. No acute distress Psych: Appropriate mood and affect Neuro: No gross deficits HEENT: NC/AT CV: RRR, Normal s1, s2. Resp: Breath sounds clear bilaterally, no increased effort of breathing. Abdomen: Soft, nontender Extremities: moves extremities bilaterally. Results & Data Results & Data Vital Signs (Past 12 Hours) Vital Signs Temp Pulse Pulse Resp BP Pulse Ox O2 Del Method 07/25/23 07:54 36.6 C 86 18 101/66 98 Nasal Cannula 07/25/23 02:49 36.8 C 99 H 20 125/81 91 Room Air 07/25/23 00:27 97 H 07/24/23 23:25 07/24/23 22:55 36.2 C L 87 20 116/75 98 Nasal Cannula O2 Del Method O2 Flow Rate 07/25/23 07:54 2 07/25/23 02:49 07/25/23 00:27 07/24/23 23:25 Room Air 07/24/23 22:55 2
[2023-07-25] MEDS: LORazepam 1 MG TAB PO PRN (19:34)
[2023-07-25] MEDS ORDERED: SUMAtriptan succinate 50 MG TAB PO STA (19:55)
[2023-07-25 21:06] LABS: Hematocrit (blood only) 24.8 % (37.0-47.0); Hemoglobin 8.2 g/dl (12.0-16.0)
[2023-07-26] MEDS: HYDROmorphone HCL 2 MG TAB PO PRN ×4 (00:33→12:41)
[2023-07-26] MEDS: CHECK fentaNYL PATCH PLACEMENT SCH ×6 (00:56→16:51)
[2023-07-26] MEDS: HYDROmorphone INJ 1 MG/ML SYRINGE IV PRN ×4 (02:28→19:40)
[2023-07-26] MEDS: IBUPROFEN 800 MG TAB PO PRN (02:31)
[2023-07-26] MEDS ORDERED: KETOROLAC TROMETHAMINE 15 MG/ML VIAL IV ONE (02:37)
[2023-07-26] MEDS: LORazepam 1 MG TAB PO PRN ×3 (04:27→19:39)
[2023-07-26] MEDS: PROMETHAZINE HCL 12.5 MG in SODIUM CHLORIDE 0.9% 50 ML IV PRN ×2 (04:31→18:08)
--- NOTE | 2023-07-26 06:24 | CT Scan Report ---
Exam(s): CT LEFT HIP Without Contrast EXAM: CT Left Lower Extremity Without Intravenous Contrast, Hip CLINICAL HISTORY: Reason for exam: worsening pain. TECHNIQUE: Axial computed tomography images of the left hip without intravenous contrast. CTDI is 23.87 mGy and DLP is 607.67 mGy-cm. Automated exposure control was utilized for the study. A dose lowering technique was utilized adhering to the principles of ALARA. COMPARISON: 05/18/23 FINDINGS: Bones/joints: There is 4.8 cm x 2.3 cm diameter lytic lesion seen in the left proximal femoral shaft with endosteal scalloping and surrounding periosteal reaction along the proximal femoral shaft. There is associated soft tissue fullness adjacent to the periosteal reaction. Mild osteoarthritic changes seen at the left hip joint. No acute fracture. No dislocation. IMPRESSION: Lytic lesion in the left proximal femoral shaft with associated periosteal reaction dedicated MRI study of the proximal femur is suggested for further assessment Electronically signed by: Franki Rios MD 07/26/23 06:23 AM
[2023-07-26 06:27] LABS: Basophils # (auto) 0.01 K/uL (0.00-0.20); Basophils % (auto) 0.4 %; Eosinophils # (auto) 0.08 K/uL (0.00-0.50); Eosinophils % (auto) 3.3 %; Hematocrit (blood only) 24.3 % (37.0-47.0); Hemoglobin 7.8 g/dl (12.0-16.0); Immature Granulocytes # (auto) 0.04 K/uL (0.01-0.20); Immature Granulocytes % (auto) 1.6 %; Lymphocytes # (auto) 0.52 K/uL (1.20-3.40); Lymphocytes % (auto) 21.3 %; Mean Corpuscular Hgb Conc 32.1 g/dL (32.0-36.0); Mean Corpuscular Volume 90.3 fL (80.0-100.0); Mean Platelet Volume 10.3 fL (9.4-12.4); Monocytes # (auto) 0.29 K/uL (0.11-0.59); Monocytes % (auto) 11.9 %; Neutrophils % (auto) 61.5 %; Platelet Count 54 K/uL (130-400); RDW Coefficient of Variation 14.7 % (11.5-14.5); RDW Standard Deviation 48.4 fL (36.4-46.3); Red Blood Count 2.69 M/uL (4.20-5.40); White Blood Count 2.44 K/ul (4.8-10.8)
[2023-07-26 06:45] LABS: Albumin Level 2.7 gm/dl (3.4-5.0); BUN Creatinine Ratio 11.3 (10-20); Bilirubin,Total 0.5 mg/dl (0.2-1.0); Creatinine Clr Calc Pharmacy 139.7 ml/min; Est GFR (African American) 132.9 ml/min; Est GFR (Non-African American) 114.7 ml/min; Globulin 2.6 gm/dl (2.5-4.0); Magnesium 1.6 mg/dl (1.7-2.4); Phosphorus 4.6 mg/dl (2.5-4.9); Potassium 3.8 mmol/L (3.5-5.1); Total Protein 5.3 gm/dl (6.0-8.3)
[2023-07-26 06:54] LABS: RBC Morphology Unremarkable
[2023-07-26] MEDS: PANTOprazole 40 MG TAB PO SCH ×2 (09:25→21:57)
[2023-07-26] MEDS: DOCUSATE SODIUM/SENNA 50/8.6MG TAB PO SCH ×3 (09:26→21:57)
[2023-07-26] MEDS: FOLIC ACID 1 MG TAB PO SCH (09:26)
[2023-07-26] MEDS: MAGNESIUM CHLORIDE W/CALCIUM 64MG DELAYED REL TAB PO SCH ×2 (09:26→21:57)
[2023-07-26] MEDS: METOPROLOL TARTRATE 25 MG TAB PO SCH ×2 (09:26→21:57)
[2023-07-26] MEDS: POLYETHYLENE (MIRALAX) 17 GM PACK PO SCH (09:27)
[2023-07-26] MEDS: FLUTICASONE/VILANTEROL 200/25MCG 14 PUFFS/INHALER INH SCH (09:27)
[2023-07-26] MEDS: POTASSIUM CHLORIDE CRTAB 20 MEQ TABCR PO SCH ×2 (09:30→21:57)
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
[2023-07-26] MEDS: UMECLIDINIUM BROMIDE 62.5MCG/BLISTER 7 PUFFS/INHALER INH SCH (13:25)
--- NOTE | 2023-07-26 15:22 | Hospitalist Progress Note ---
Date of Service July 26, 2023 Assessment & Plan (1) Cancer related pain: Plan: Ms. 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 She had #2/10 radiation to her left iliac crest on with persistent pain since. Additional PMH includes chronic pancytopenia (baseline hemoglobin 10-11), history of PE ( not on anticoagulation)endometrial cancer status post surgery, prediabetes, SLE, cancer pain on narcotics, ADD/mood disorder, pseudocholinesterase deficiency, esophageal ulcer as per records, ongoing tobacco use. Follows with palliative medicine as an outpatient for symptom management. She has had 18 admissions in the last year. Pt stated that she would like to be made comfort measures on 07/26/2023 with DNR/DNI status but would like Narcan available and used should she have respiratory suppression from her increasing narcotic requirement. Comfort Measures Status: 07/26/2023: Overnight, reports that pt was asking for increasing amounts of pain medication. Currently receiving fentanyl 125mcg via patch, po Dilaudid 6mg q3h, IV Dilaudid 2mg q3h, Ativan 1mg TID for the most part, all on schedule. Reportedly asking nursing overnight to wake her up to get her scheduled medication doses as she was in so much pain. In the AM, jone discussion about her full code status and increasing need for narcotic pain medications along with benzos that could potentially terminally suppress her respiratory drive. Nursing was at bedside as well during that discussion. Pt noted that her desire to be a full code was to ensure that family members had a chance to get to her and say goodbye should she have a turn for the worse. She noted that her main goal was to spend as much time with loved ones as she could and she does not want to in the hospital. She noted she has a sister who resides in another state. The option of hospice care was b rought up and she stated that she would like more information but would also like to go home with her loved ones. Case management was advised as well as her inpatient Palliative care provider of patient's desire for more information about hospice and desire to go home. Ritchie noted that her pain at that time was well controlled and she noted that she had not used the IV Dilaudid since earlier in the night. Later notified by nursing that pt was in tears with increased pain and stating that she was not able to go home with this degree of pain. On arrival at bedside, was present. Again jone discussion of her need for increasing narcotic pain medication and the desire to do no harm with her desire at that time to remain a full code. The risk of respiratory drive suppression with need for intubation and ventilator support with increasing doses and frequency of her narcotic pain meds was once again explained, this time with at bedside. It was also explained that she would be able to receive as much pain medications as frequently as she would like if she was comfort measures. Her code status was once again discussed at that time. indicated that over the last few mo nths he has noted a significant decline and was aware of the terminal nature of her diagnosis with the significant spread. He stated that he would like to see her comfortable. Ritchie was in tears and verbalized understanding and agreement but stated that she would like to discuss this further with her sister. Later called back to pt's bedside by nursing as Ritchie had indicated that she would like to discuss things further. Upon entry into the room, and Ritchie indicated that they had contacted family and advised of the situation. Ritchie indicated that she would like to be made comfortable and be made a DNR/DNI. She noted that her pain level was increasing and she would like to get her medications as frequently as she needed. She indicated that she was aware of the risk of respiratory depression and though she is a DNR/DNI, she would like Narcan available for her use if needed. Pt was made comfort measures and her Dilaudid doses were increased in frequency to q2h. Will await further recommendations from inpatient Palliative Care. Consider a dilaudid drip if need for increased pain medication. Primary adenocarcinoma of lung: Mets to brain and bone: New Metastatic Lesion: Chronic Followed with Dr. Charlton, now with [facility] and trying to establish care with Dr. David for another opinion scheduled 08/17/23 Overall poor prognosis New lesion identified on face CT: 1. A 2.5 x 2.5 cm destructive lesion centered within the ramus of the right hemimandible consistent with metastatic disease. No evidence for pathologic fracture at this time. 2. Re-demonstration of the 13 mm intracranial metastatic focus within the right temporal lobe. Will involve ST for safe swallowing techniques Acute on chronic pain Outpatient regimen Dilaudid 4 mg p.o. every 4 as needed, Ativan 0.5 mg p.o. 3 times daily Fentanyl TD patch recently increased from 50 mcg to 100 mcg 07/17; then to 112 mcg as of 07/21 and 07/24 increased to 125mcg Follows with Palliative medicine as outpatient; re-involve while here Involve pain management for additional eval; Current pain regimen 6mg po q3hr mg Dilaudid and 2mg IV dilaudid q3hr for breakthrough pain Has been put on bowel regimen Continue with anxiolytic appreciate palliative and pain management assistance 07/24: Pt seen by Palliative Care once more, fentanyl patch dose increased to 125mcg. 07/25: States that pain is improved but still present, plans to follow up outpatient with oncology 07/26: Pt made comfort measures, see above discussion Tachycardia Noted on 07/23. Pt known to be tachycardic, previously evaluated by cardiology at one prior admission Likely multifactorial in setting of cancer, uncontrolled pain and chronic anemia, currently worsening. Was started on metoprolol overnight. Continue to monitor. 07/25-improving 07/26- pt made comfort measures, continue current management (2) Primary adenocarcinoma of upper lobe of right lung: Plan: Current plan is to resume outpatient therapy once stable and discharged from hospital Patient was also planning on getting a third opinion regarding chemo regimen from Dr. David 07/24- per Palliative, encouraged pt to get third opinion from [facility] where she [place] been [place] 07/26- pt made comfort measures, see discussion above Pancytopenia Anemia Pt with noted worsening anemia, thrombocytopenia and leukopenia. Has occurred in the past. Holding dvt prophylaxis Consider oncology recall inpatient Per discussion with palliative on 07/24, pt to seek third opinion from [facility] rather than Dr David 07/25-transfused 1U pRBCs on 07/25 given pt's symptoms and hgb of 7.2 07/26- hgb stable (3) Metastasis to brain: Plan: Metastatic lesions in the brain and in the bones was shown to the patient's through the computer imaging Denies any headache Plan Intractable N/V: improved continue prn phenergan Hypomagnesemia: repleted Hypokalemia: repleted, check bmp Tobacco use: Chronic Currently smoking 5 cigarettes per day Smoking cessation recommended Prescribed Ellipta, Advair; continue Albuterol PRN; continue CODE STATUS: Full code, discussed multiple times VTE prophylaxis: Lovenox 40 mg subcu daily, currently on hold with pancytopenia (in particular anemia, thrombocytopenia) Admission and Anticipated Discharge Date Admission Date: July 18, 2023 Subjective Overnight, reports that pt was asking for increasing amounts of pain medication. Currently receiving fentanyl 125mcg via patch, po Dilaudid 6mg q3h, IV Dilaudid 2mg q3h, Ativan 1mg TID. Reportedly asking nursing to wake her up to get her scheduled medication doses as she was in so much pain. Pt was seen multiple times during the day. In the AM, jone discussion about her full code status and increasing need for narcotic pain medications along with benzos that could potentially terminally suppress her respiratory drive. Nursing was at bedside as well during that discussion. Pt noted that her desire to be a full code was to ensure that family members had a chance to get to her and say goodbye should she have a turn for the worse. She noted that her main goal was to spend as much time with loved ones as she could and she does not want to in the hospital. She noted she has a sister who resides in another state. The option of hospice care was brought up and she stated that she would like more information but would also like to go home with her loved ones. Case management was advised as well as her inpatient Palliative care provider of patient's desire for more information about hospice and desire to go home. Ritchie noted that her pain at that time was well controlled and she noted that she had not used the IV Dilaudid since earlier in the night. Later notified by nursing that pt was in tears with increased pain and stating that she was not able to go home with this degree of pain. On arrival at bedside, was present. Again jone discussion of her need for increasing narcotic pain medication and the desire to do no harm with her desire at that time to remain a full code. The risk of respiratory drive suppression with need for intubation and ventilator support with increasing doses and frequency of her narcotic pain meds was once again explained, this time with at bedside. It was also explained that she would be able to receive as much pain medications as frequently as she would like if she was comfort measures. Her code status was once again discussed at that time. indicated that over the last few months he has noted a significant decline and was aware of the terminal nature of her diagnosis with the significant spread. He stated that he would like to see her comfortable. Ritchie was in tears and verbalized understanding and agreement but stated that she would like to discuss this further with her sister. Later called back to pt's bedside by nursing as Ritchie had indicated that she would like to discuss things further. Upon entry into the room, and Ritchie indicated that they had contacted family and advised of the situation. Ritchie indicated that she would like to be made comfortable and be made a DNR/D NI. She noted that her pain level was increasing and she would like to get her medications as frequently as she needed. She indicated that she was aware of the risk of respiratory depression and though she is a DNR/DNI, she would like Narcan available for her use if needed. Review of Systems Review of Systems: All systems reviewed & are unremarkable except as noted in Subjective Physical Exam Physical Exam: General: Alert, oriented. No acute distress Psych: Appropriate mood and affect Neuro: No gross deficits HEENT: NC/AT CV: RRR, Normal s1, s2. Resp: Breath sounds clear bilaterally, no increased effort of breathing. Abdomen: Soft, nontender Extremities: moves extremities bilaterally. Results & Data Results & Data Vital Signs (Past 12 Hours) Vital Signs Temp Pulse Pulse Resp BP Pulse Ox O2 Del Method 07/26/23 11:57 36.7 C 84 18 109/74 96 Room Air 07/26/23 11:44 Room Air 07/26/23 10:13 94 H 07/26/23 07:47 36.4 C L 84 18 122/83 96 Nasal Cannula O2 Flow Rate 07/26/23 11:57 07/26/23 11:44 07/26/23 10:13 07/26/23 07:47 2
[2023-07-26] MEDS ORDERED: MoRPHine SULFATE 10 MG/0.5 ML UDP PO PRN (15:52)
[2023-07-26] MEDS ORDERED: HYDROmorphone HCL 2 MG TAB PO PRN (15:57)
[2023-07-26] MEDS: KETOROLAC TROMETHAMINE 15 MG/ML VIAL IV PRN (19:37)
[2023-07-27] MEDS: HYDROmorphone INJ 1 MG/ML SYRINGE IV PRN ×11 (00:04→20:23)
[2023-07-27] MEDS: [UNRECOGNIZED DRUG - REMARK] SCH (00:11)
[2023-07-27] MEDS: CHECK fentaNYL PATCH PLACEMENT SCH ×6 (00:11→16:25)
[2023-07-27] MEDS: fentaNYL 100 MCG/HR TDSY TD SCH (00:11)
[2023-07-27] MEDS: KETOROLAC TROMETHAMINE 15 MG/ML VIAL IV PRN ×4 (01:48→22:24)
[2023-07-27 06:11] LABS: Albumin Level 2.8 gm/dl (3.4-5.0); Bilirubin,Total 0.6 mg/dl (0.2-1.0); Calcium 8.9 mg/dl (8.6-10.3); Creatinine Clr Calc Pharmacy 148.6 ml/min; Est GFR (African American) 135.5 ml/min; Est GFR (Non-African American) 116.9 ml/min; Globulin 2.7 gm/dl (2.5-4.0); Magnesium 1.4 mg/dl (1.7-2.4); Phosphorus 4.1 mg/dl (2.5-4.9); Potassium 3.8 mmol/L (3.5-5.1); Total Protein 5.5 gm/dl (6.0-8.3)
[2023-07-27 06:36] LABS: Hematocrit (blood only) 23.8 % (37.0-47.0); Hemoglobin 7.9 g/dl (12.0-16.0); Mean Corpuscular Hemoglobin 29.3 pg (25.0-34.0); Mean Corpuscular Hgb Conc 33.2 g/dL (32.0-36.0); Mean Corpuscular Volume 88.1 fL (80.0-100.0); Mean Platelet Volume 10.4 fL (9.4-12.4); Platelet Count 65 K/uL (130-400); RDW Coefficient of Variation 14.6 % (11.5-14.5); RDW Standard Deviation 46.6 fL (36.4-46.3); White Blood Count 3.07 K/ul (4.8-10.8)
[2023-07-27 06:43] LABS: Basophils # (auto) 0.01 K/uL (0.00-0.20); Basophils % (auto) 0.3 %; Eosinophils # (auto) 0.03 K/uL (0.00-0.50); Immature Granulocytes # (auto) 0.05 K/uL (0.01-0.20); Immature Granulocytes % (auto) 1.6 %; Lymphocytes # (auto) 0.77 K/uL (1.20-3.40); Lymphocytes % (auto) 25.1 %; Monocytes # (auto) 0.34 K/uL (0.11-0.59); Monocytes % (auto) 11.1 %; Neutrophils # (auto) 1.87 K/uL (1.40-6.50); Neutrophils % (auto) 60.9 %; RBC Morphology Unremarkable
[2023-07-27] MEDS ORDERED: HYDROmorphone HCL 2 MG TAB PO PRN (09:52)
[2023-07-27] MEDS: DOCUSATE SODIUM/SENNA 50/8.6MG TAB PO SCH ×3 (10:14→20:30)
[2023-07-27] MEDS: MAGNESIUM CHLORIDE W/CALCIUM 64MG DELAYED REL TAB PO SCH ×3 (10:18→20:30)
[2023-07-27] MEDS: FOLIC ACID 1 MG TAB PO SCH (10:18)
[2023-07-27] MEDS: PANTOprazole 40 MG TAB PO SCH ×2 (10:18→20:30)
[2023-07-27] MEDS: POLYETHYLENE (MIRALAX) 17 GM PACK PO SCH ×2 (10:19→20:30)
[2023-07-27] MEDS: FLUTICASONE/VILANTEROL 200/25MCG 14 PUFFS/INHALER INH SCH (10:19)
[2023-07-27] MEDS: UMECLIDINIUM BROMIDE 62.5MCG/BLISTER 7 PUFFS/INHALER INH SCH (10:19)
[2023-07-27] MEDS: IBUPROFEN 800 MG TAB PO PRN (11:24)
[2023-07-27] MEDS: LORazepam 1 MG TAB PO PRN (14:35)
[2023-07-27] MEDS: METOPROLOL TARTRATE 25 MG TAB PO SCH ×2 (14:53→20:29)
[2023-07-27] MEDS: POTASSIUM CHLORIDE CRTAB 20 MEQ TABCR PO SCH ×2 (14:53→20:32)
[2023-07-27] MEDS: fentaNYL 25 MCG/HR TDSY TD SCH (16:16)
[2023-07-27] MEDS ORDERED: HYDROmorphone BOLUS from BAG IV PRN (16:22)
[2023-07-27] MEDS ORDERED: HYDROmorphone/NSS 100 MG/100 ML BAG IV SCH (16:30)
[2023-07-27] MEDS ORDERED: HYDROmorphone INJ 2 MG/ML SYR/VIAL IV PRN (16:38)
[2023-07-27] MEDS: PROMETHAZINE HCL 12.5 MG in SODIUM CHLORIDE 0.9% 50 ML IV PRN (17:38)
--- NOTE | 2023-07-27 17:40 | Hospitalist Progress Note ---
Date of Service July 27, 2023 Assessment & Plan (1) Cancer related pain: Plan: Ms. 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 She had #2/10 radiation to her left iliac crest on with persistent pain since. Additional PMH includes chronic pancytopenia (baseline hemoglobin 10-11), history of PE ( not on anticoagulation)endometrial cancer status post surgery, prediabetes, SLE, cancer pain on narcotics, ADD/mood disorder, pseudocholinesterase deficiency, esophageal ulcer as per records, ongoing tobacco use. Follows with palliative medicine as an outpatient for symptom management. She has had 18 admissions in the last year. Pt stated that she would like to be made comfort measures on 07/26/2023 with DNR/DNI status but would like Narcan available and used should she have respiratory suppression from her increasing narcotic requirement. Comfort Measures Status: 07/26/2023: Overnight, reports that pt was asking for increasing amounts of pain medication. Currently receiving fentanyl 125mcg via patch, po Dilaudid 6mg q3h, IV Dilaudid 2mg q3h, Ativan 1mg TID for the most part, all on schedule. Reportedly asking nursing overnight to wake her up to get her scheduled medication doses as she was in so much pain. In the AM, jone discussion about her full code status and increasing need for narcotic pain medications along with benzos that could potentially terminally suppress her respiratory drive. Nursing was at bedside as well during that discussion. Pt noted that her desire to be a full code was to ensure that family members had a chance to get to her and say goodbye should she have a turn for the worse. She noted that her main goal was to spend as much time with loved ones as she could and she does not want to in the hospital. She noted she has a sister who resides in another state. The option of hospice care was b rought up and she stated that she would like more information but would also like to go home with her loved ones. Case management was advised as well as her inpatient Palliative care provider of patient's desire for more information about hospice and desire to go home. Ritchie noted that her pain at that time was well controlled and she noted that she had not used the IV Dilaudid since earlier in the night. Later notified by nursing that pt was in tears with increased pain and stating that she was not able to go home with this degree of pain. On arrival at bedside, was present. Again jone discussion of her need for increasing narcotic pain medication and the desire to do no harm with her desire at that time to remain a full code. The risk of respiratory drive suppression with need for intubation and ventilator support with increasing doses and frequency of her narcotic pain meds was once again explained, this time with at bedside. It was also explained that she would be able to receive as much pain medications as frequently as she would like if she was comfort measures. Her code status was once again discussed at that time. indicated that over the last few mo nths he has noted a significant decline and was aware of the terminal nature of her diagnosis with the significant spread. He stated that he would like to see her comfortable. Ritchie was in tears and verbalized understanding and agreement but stated that she would like to discuss this further with her sister. Later called back to pt's bedside by nursing as Ritchie had indicated that she would like to discuss things further. Upon entry into the room, and Ritchie indicated that they had contacted family and advised of the situation. Ritchie indicated that she would like to be made comfortable and be made a DNR/DNI. She noted that her pain level was increasing and she would like to get her medications as frequently as she needed. She indicated that she was aware of the risk of respiratory depression and though she is a DNR/DNI, she would like Narcan available for her use if needed. Pt was made comfort measures and her Dilaudid doses were increased in frequency to q2h. Will await further recommendations from inpatient Palliative Care. Consider a dilaudid drip if need for increased pain medication. 07/27: notified by nursing that pt was asking for med every half hour. Per pt, she would just like to know what time her next dose of medication is due. Palliative was at bedside. Pt declined Dilaudid pump/drip. Per palliative family discussion, NO MORE NARCAN use, pt fully comfort measures. Primary adenocarcinoma of lung: Mets to brain and bone: New Metastatic Lesion: Chronic Followed with Dr. Charlton, now with [facility] and trying to establish care with Dr. David for another opinion scheduled 2/19/24 Overall poor prognosis New lesion identified on face CT: 1. A 2.5 x 2.5 cm destructive lesion centered within the ramus of the right hemimandible consistent with metastatic disease. No evidence for pathologic fracture at this time. 2. Re-demonstration of the 13 mm intracranial metastatic focus within the right temporal lobe. Will involve ST for safe swallowing techniques Acute on chronic pain Outpatient regimen Dilaudid 4 mg p.o. every 4 as needed, Ativan 0.5 mg p.o. 3 times daily Fentanyl TD patch recently increased from 50 mcg to 100 mcg 07/17; then to 112 mcg as of 07/21 and 07/24 increased to 125mcg Follows with Palliative medicine as outpatient; re-involve while here Involve pain management for additional eval; Current pain regimen 6mg po q3hr mg Dilaudid and 2mg IV dilaudid q3hr for breakthrough pain Has been put on bowel regimen Continue with anxiolytic appreciate palliative and pain management assistance 07/24: Pt seen by Palliative Care once more, fentanyl patch dose increased to 125mcg. 07/25: States that pain is improved but still present, plans to follow up outpatient with oncology 07/26: Pt made comfort measures, see above discussion Comfort measures at this time Tachycardia Noted on 07/23. Pt known to be tachycardic, previously evaluated by cardiology at one prior admission Likely multifactorial in setting of cancer, uncontrolled pain and chronic anemia, currently worsening. Was started on metoprolol overnight. Continue to monitor. 07/25-improving 07/26- pt made comfort measures, continue current management (2) Primary adenocarcinoma of upper lobe of right lung: Plan: Current plan is to resume outpatient therapy once stable and discharged from hospital Patient was also planning on getting a third opinion regarding chemo regimen from Dr. David 07/24- per Palliative, encouraged pt to get third opinion from [facility] where she [place] been [place] 07/26- pt made comfort measures, see discussion above Pancytopenia Anemia Pt with noted worsening anemia, thrombocytopenia and leukopenia. Has occurred in the past. Holding dvt prophylaxis Consider oncology recall inpatient Per discussion with palliative on 07/24, pt to seek third opinion from [facility] rather than Dr David 07/25-transfused 1U pRBCs on 07/25 given pt's symptoms and hgb of 7.2 07/26- hgb stable (3) Metastasis to brain: Plan: Metastatic lesions in the brain and in the bones was shown to the patient's through the computer imaging Denies any headache Plan Intractable N/V: improved continue prn phenergan Hypomagnesemia: repleted Hypokalemia: repleted, check bmp Tobacco use: Chronic Currently smoking 5 cigarettes per day Smoking cessation recommended Prescribed Ellipta, Advair; continue Albuterol PRN; continue CODE STATUS: DNR/DNI, comfort measures at this time VTE prophylaxis: Lovenox 40 mg subcu daily, currently on hold with pancytopenia (in particular anemia, thrombocytopenia) Admission and Anticipated Discharge Date Admission Date: July 18, 2023 Subjective Pt seen multiple times during the day. Per , the two hour interval is too long as she is often requesting the pain med sooner. Gets sweaty. Later, notified by nursing that pt was asking for med every half hour. Per pt, she would just like to know what time her next dose of medication is due. Palliative was at bedside. Pt declined dilaudid comfort drip at that time. Review of Systems Review of Systems: All systems reviewed & are unremarkable except as noted in Subjective Physical Exam Physical Exam: General: Alert but occasionally drowsy, oriented. No acute distress Psych: Appropriate mood and affect Neuro: No gross deficits HEENT: NC/AT CV: RRR, Normal s1, s2. Resp: Breath sounds clear bilaterally, no increased effort of breathing. Abdomen: Soft, nontender Extremities: moves extremities bilaterally. Results & Data Results & Data Vital Signs (Past 12 Hours) Vital Signs Temp Pulse Pulse Resp BP Pulse Ox O2 Del Method 07/27/23 09:00 103 H 07/27/23 08:32 37.1 C 110 H 18 103/66 92 Room Air 07/27/23 04:00 36.8 C 107 H 20 118/83 91 Room Air 07/27/23 00:00 36.7 C 106 H 20 126/78 96 Room Air 07/26/23 23:26 108 H
--- NOTE | 2023-07-27 21:49 | Palliative Family Discussion ---
Date of Service July 27, 2023 Patient Directed Conference Time of Meetin-5pm pt bedside Participants: Marissa Hickman DNP Patient participation: yes Patient Support System: sisters x 2 Other Healthcare Provider Participation: None Meeting Location: pt bedside Advanced Directive available: no but pt and sister are reviewing POA and Living will to complete If yes, descriptors: pt desires DNR/DNI, focus on comfort. eventually desires home with hospice A family meeting was held for FANNIE GUTIERREZ. This meeting was necessary for determining the appropriate course of treatment. Topics of Discussion Topics of Discussion: 1. Fannie and her two sisters and I discussed her overall progressive cancer, steady PS decline and increasing frailty. Both of them notes that she has had a dramatic change in her overall condition within the last 3 to 6 months. They also note she has begun to need more and more help with even basic activities at home such as transitioning positions or going to the bathroom. They acknowledge that her pain seems to be steadily increasing. They are aware that her disease has progressed and she has more metastatic spread. They are aware that she chose to stop radiation because it was not providing her with the benefit she desired. 2. Davian and family are in agreement for plan that is focused on comfort. They tell me that they are waiting for her housing application to be modified for an apartment on the first floor. Currently, she was granted an apartment but it is up a flight of nearly 20 steps and there is no elevator. She would not be able to access that apartment. Additional paperwork is warranted for ground-floor unit to be given in an order for her sister to provide the documentation, the rental agency requires formal power of sports attorney documentation because otherwise they would require the patient to come in person. 3. Her sisters are committed to helping care for her through this junction. They note that their parents have been updated and are aware of the overall circumstance. They also note that their parents are struggling to accept the reality of Davian's declining condition because there are moments "when she is really good and they have a hard time reconciling that when she does not look that great." 4. We discussed that although we cannot always guarantee healing or a cure, we can and must always care for the living, without ourselves shortening their life, but also without futilely resisting their . This approach is reflected in palliative care, which opposes what makes most terrifying and unwelcome - pain and loneliness. 5. We discussed the goals of hospice as a patient service and the goals of care; we discussed EOL trajectories and transitions estrella the emotional impact of realizing mortality as a concrete reality from prior abstract considerations. Pt was reassured that no matter where they are along this trajectory, they are not alone - their medical team will remain by their side through their journey. Discussed the pros/cons of accepting help when especially weakened and distressed by pain-which would also help provide relief/decrease caregiver burden/strain. I provided education about the hospice benefit: an inter disciplinary program offered by nurses, nurses aides, social workers, chaplains and a chief medical officer for patients with a terminal condition and a life expectancy of less than 6 months. This is covered by Medicare at 100%/no out of pocket expense to patient and all meds/supplies needed by patient for the reason they are on hospice are paid for/covered by hospice. The goal is assure quality of life of the patient in their home setting (home, [place] [facility], inpatient hospice setting) by providing symptoms management, psychosocial and spiritual support. However, they cannot offer 24 hours care and if the family is unable to provide that care, they will have to consider personal care with out of pocket cost vs. [place] [facility] placement. We discussed the goals of hospice as a patient service and the goals of care; we discussed EOL trajectories and transitions estrella the emotional impact of realizing mortality as a concrete reality from prior abstract considerations. Pt was reassured that no matter where they are along this trajectory, they are not alone - their medical team will remain by their side through their journey. Discussed the pros/cons of accepting help when especially weakened and distressed by pain-which would also help provide relief/decrease caregiver burden/strain. Other Content of Meetin. Opportunity given for participants to speak and ask questions. 2. Participants were assured of attention to patient comfort. 3. Reassurance provided. 4. Support was provided for informed, good-harsh decisions. 5. Emotions expressed by family were acknowledged and addressed. 6. Davian is clear about a desire for comfort focused plan of care. Her sisters are in agreement. I reviewed the power of sports attorney documentation that they are in the process of completing. She is designating her sister as the initial surrogate decision maker and the first alternate to be her Chris, at the next alternate to be her sister from [place]. We discussed a comfort focused plan of care. We discussed stopping the things that are no longer needed or considered essential for assuring comfort such as ongoing blood work, telemetry monitoring, and other aggressive and or invasive interventions. We also discussed Fannie's concern for wanting a Narcan order, which her sisters explained to me was requested because during a prior conversation with another provider, they perceived being told that once opioids were initiated, they would sedate her and she would pass away. We went through the process of comfort focused plan of sense of care. Advised him that the goal is to provide medication that brings relief to her very severe cancer pain but not to deeply sedate her. We discussed that as cancer progresses, there are patients for whom higher doses of opioids may be warranted to control the extent and the depth of their very severe cancer related suffering. I provided detailed education and reassurance that we all the same way i.e., our hearts and lungs will stop working. Sometimes, in an effort to relieve and control the suffering, sedation becomes the side effect that we accept so that the distress and the suffering of the patient is better managed, however sedation to induce dying is not a goal. will occur when it is supposed to occur, and will be induced by the end stage and temrinal medi. Other times, patients may choose to remain more awake and alert with less pain relief. Davian states that she would rather have more pain control even if it comes with more sedation because she is very afraid of suffering through the end-of-life process. We are in agreement that Narcan is not needed at this junction. Medications will be given judiciously and on an as-needed basis for her pain management. Should her pain began to escalate and not respond to the existing orders, then an infusion can be considered to help improve her pain management with the understanding that sedation would be the trade off/side effect that we except in order to assure freedom from suffering. Patient and her sisters were extremely appreciative of this discussion and clarification. One of her sisters indicated a concern that initially a comfort focused plan of care was, as she initially understood it, something along the lines of a medically assisted . Advised that this is not a procedure available in the [facility]. Our approach is to assure medications are given as needed to assure comfort and the relief of suffering. We would not medicate her to deeply sedate her for any reason other than to provide the relief of her suffering and not sedation, as we previously discussed, would be excepted as the side effect of improved pain control. 7. They had many questions about what to expect as her condition worsens. They were especially concerned about what to expect as someone nears a more active dying process. Patient is very worried about "suffocating to or being in agonizing pain." I discussed with them that dying patients fear dyspnea and pain, therefore, symptom control is one cornerstone of pulmonary palliative care. Dyspnea is a prominent symptom of the patient with advanced respiratory disease of any cause: nearly all patients with COPD had dyspnea during the last 3 days of their lives. Providers routinely care for patients with chronic or advanced respiratory diseases and critical illnesses. The ATS recognizes: the growing importance and complexity of palliative care for patients with life- threatening and life-limiting diseases and disorders and the need for improving professional competence and teamwork in providing such care. The statement strongly endorses the concept that palliative care should be available to patients at all stages of illness and should be individualized based on the needs and preferences of the patient and the patients family. Clinicians should consult with palliative care specialists as appropriate for managing palliative care situations beyond the clinicians level of competence. (ATS Clinical Policy Statement: Palliative Care for Patients with Respiratory Diseases and Critical Illnesses; Sylvain Hollingsworth, et al., for the [employer], the [employer], the [employer], and the Respiratory Society* Diagnosis and Management of Stable Chronic Obstructive Pulmonary Disease: A Clinical Practice Guideline Update from the [employer], [employer], [employer], and Respiratory Society . Anushka Manager Philosophy Med. 2011;155:179-191.) 8. They also asked about what to expect in the dying process: Discussed changes pt may move through in the dying process including but not limited to sleeping more, disorientation when awake, restlessness, diminished senses/inability to respond to stimulus although ability to be aware of them remains intact longer, and changes in body temperatures, skin changes/mottling/cyanosis, respiratory pattern changes, and oral secretions. Family verbalized understanding. The goal is to assure a peaceful . I reviewed with them that sometimes it would not be uncommon to see what is often referred to as an EOL Rally: When a person facing the end of life rallies, they seem to become "more stable" - may want to talk or even begin taking PO; this phenomenon is usually seen as a sudden burst of energy before . This period of perking up can be accompanied by such a notable change in mental clarity that is often referred to as terminal lucidity. This change in cognition and behavior goes against everything families learn about the physical signs that the end of life is near. It is important to note that evidence-based data is elusive, if nonexistent. Theories support that it may be a search for a final, strong connection. Also, as organs shut down, they can release a steroid like compound that briefly rouses the body - in the specific case of brain tumors, swelling occurs in the confined space of the skull. The edema shrinks as EOL care patients are weaned off food and drink, waking up the brain a bit. Families and caregivers may grasp at what seems to be a turnaround in a loved ones health, however, the EOL Rally is a hallmark pre- sign. It is not uncommon for patients to show improvement before : they may want to talk while others may become restless or act as if they need to start preparing for a trip. Some patients will become more relaxed yet remain tuned in to what is going on around them, others will show signs of physical stability when, seconds before, they seemed on the verge of letting go. A rally can last for a few moments or even days. Short or long, these temporary improvements can have a profound effect on loved ones who are keeping [place]. Like a moment of clarity for someone who has dementia, a rally is one last opportunity to connect with a loved one. Each persons experience is unique and impossible to predict with total accuracy. Life is full of questions, and some of them simply are not meant to be answered. Read more: [email or web address].[email or web address]-[email or web address]-gce-bf-pyle-rallies.[email or web address] 9. Oxygen at EOL: For patients at the end of life, oxygen delivered by a nasal cannula provides no additional symptomatic benefit for relief of refractory dyspnea in patients with life-limiting illness compared with room air: there's a point at which that the oxygen level gets so low that it's no longer compatible with life. By providing supplemental oxygen, the dying process will be unnecessarily prolonged. Please use less burdensome but more effective strategies such as comfort care meds, oscillating fan, massage, repositioning, etc. (Janey AP, Silva CF, Rossy PA, et al. Effect of palliative oxygen versus room air in relief of breathlessness in patients with refractory dyspnoea: a double-blind, randomised controlled trial. Lancet. 2010;376(0489):395-323. doi:10.1016/S1543-7548(22)48134-4) At the end of our discussion, we agreed to the following plan of care: * Discontinue monitoring, labs and other invasive testing. * Continue the current regimen for pain and symptom management with no further escalation at this time. She feels that the current regimen is helping. She does best when she is on a schedule and is aware when her next dose would be available, even if she does not need to take it. Knowing when it is available provides her with a sense of control and comfort/relief. * Patient is now on a formal comfort plan of care. She does not require Narcan for respiratory suppression and understands the medications will be given on an as-needed basis for the relief of her terminal, widespread metastatic cancer related pain and suffering. * Orders written to stop non comfort/non essential interventions including telemetry and Narcan. * Fannie is more aware of and accepting of the evolving end of life circumstances. Her goal is to return home but she has not been able to complete her application for housing with a ground floor unit. Her and child currently reside in a hotel room, which is where she has been staying as well while awaiting housing approval. Her sister is helping complete her paperwork and with the POA document completed, can be the person bringing in her paperwork, etc. * Fannie and sisters affirm DNR/DNI. Goal is comfort. Home with hospice once housing is stable, they are in discussion with care mgt. She would like [facility]. Family supportive. Once at home, caregiver team will include her parents, , sisters and her oldest daughter. Time Involved in Meeting: I spent 100 minutes overall addressing this case: 10 in medical data review/discussion with referring provider(s) and/or preparation for the visit 10 in direct interaction with the patient [] 60 Advance Care Planning/Goals of Care discussions as detailed above in note (must be >16min) 10 in subsequent review and synthesis of assessment and plan 10 in communicating with other providers regarding the patient's case Thank you for allowing us to participate in the ongoing care of this patient. Please don't hesitate to call or page with any additional concerns. Dr. Marissa Hickman DNP Director, Palliative Care
[2023-07-28] MEDS: HYDROmorphone INJ 1 MG/ML SYRINGE IV PRN ×11 (00:31→17:52)
[2023-07-28] MEDS: PROMETHAZINE HCL 12.5 MG in SODIUM CHLORIDE 0.9% 50 ML IV PRN (00:34)
[2023-07-28] MEDS: CHECK fentaNYL PATCH PLACEMENT SCH ×6 (00:41→16:18)
[2023-07-28] MEDS: KETOROLAC TROMETHAMINE 15 MG/ML VIAL IV PRN ×3 (04:31→16:49)
[2023-07-28] MEDS: LORazepam 1 MG TAB PO PRN (08:25)
[2023-07-28] MEDS: PANTOprazole 40 MG TAB PO SCH (08:32)
[2023-07-28] MEDS: UMECLIDINIUM BROMIDE 62.5MCG/BLISTER 7 PUFFS/INHALER INH SCH (08:34)
[2023-07-28] MEDS: POLYETHYLENE (MIRALAX) 17 GM PACK PO SCH (08:34)
[2023-07-28] MEDS: DOCUSATE SODIUM/SENNA 50/8.6MG TAB PO SCH ×2 (08:34→13:37)
[2023-07-28] MEDS: FLUTICASONE/VILANTEROL 200/25MCG 14 PUFFS/INHALER INH SCH (08:35)
[2023-07-28] MEDS: METOPROLOL TARTRATE 25 MG TAB PO SCH (11:09)
[2023-07-28] MEDS: POTASSIUM CHLORIDE CRTAB 20 MEQ TABCR PO SCH (11:09)
[2023-07-28] MEDS: MAGNESIUM CHLORIDE W/CALCIUM 64MG DELAYED REL TAB PO SCH ×2 (11:09→13:37)
[2023-07-28] MEDS: FOLIC ACID 1 MG TAB PO SCH (11:09)
--- NOTE | 2023-07-28 13:00 | Hospitalist Progress Note ---
Date of Service July 28, 2023 Assessment & Plan Admission and Anticipated Discharge Date Admission Date: July 18, 2023 Results & Data Results & Data Vital Signs (Past 12 Hours) Vital Signs Temp Pulse Resp BP Pulse Ox O2 Del Method 07/28/23 08:00 Room Air 07/28/23 02:37 36.9 C 95 H 18 121/75 91 Room Air
[2023-07-28] MEDS ORDERED: ALBUT/IPRATROP 3MG/0.5MG NEB 3 ML VIAL NEB PRN (14:48)
[2023-07-28] MEDS: IBUPROFEN 800 MG TAB PO PRN (15:27)
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
--- NOTE | 2023-07-28 17:29 | Communication Note ---
Date of Service: July 28, 2023 Brief Palliative Med Note Pt is agreeable to an inpatient hospice eval GIP team coming at 3pm No changes to regimen at this time She feels about the same but notes more fatigue Thank you for allowing us to participate in the ongoing care of this patient. Please don't hesitate to call or page with any additional concerns. no charge submitted Dr. Marissa Hickman DNP Director, Palliative Care
[2023-07-28] MEDS ORDERED: HYDROmorphone INJ 2 MG/ML SYR/VIAL IV PRN (17:58)
== END 2023-07-28 17:59 | disposition hospice, inpatient (51) | DRG 948 ==
LOC: ED 07:41 → SUATTDRO 11:38 → 2W 11:38 → 3E 07-21 22:38 → 4W 07-23 23:22 → 3E 07-28 16:19

== ENCOUNTER 2023-07-28 18:00 | Inpatient (IN) ==
[2023-07-28] MEDS ORDERED: MoRPHine SULFATE 2 MG/ML CARP IV PRN (18:05)
[2023-07-28] MEDS ORDERED: NALOXONE HCL 0.4 MG/1 ML VIAL/CARP IV PRN ×2 (18:05→19:29)
[2023-07-28] MEDS ORDERED: ONDANSETRON 4 MG OD TAB SL PRN (18:05)
[2023-07-28] MEDS ORDERED: LORazepam 0.5 MG TAB PO PRN ×2 (18:05→18:25)
--- NOTE | 2023-07-28 18:16 | History & Physical Report ---
Date of Service July 28, 2023 Assessment & Plan (1) Cancer, metastatic to bone: (2) Cancer-related breakthrough pain: (3) Metastatic adenocarcinoma: (4) Lung cancer metastatic to brain: (5) Pain from bone metastases: (6) Comfort measures only status: Plan Ms. 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 She had #2/10 radiation to her left iliac crest on with persistent pain since. Additional PMH includes chronic pancytopenia (baseline hemoglobin 10-11), history of PE ( not on anticoagulation)endometrial cancer status post surgery, prediabetes, SLE, cancer pain on narcotics, ADD/mood disorder, pseudocholinesterase deficiency, esophageal ulcer as per records, ongoing tobacco use. Follows with palliative medicine as an outpatient for symptom management. She has had 18 admissions in the last year. Pt stated that she would like to be made comfort measures on 07/26/2023 with DNR/DNI status. Transitioned to [facility]/inpatient hospice care on 07/28/2023. Comfort Measures Status: 07/26/2023: Overnight, reports that pt was asking for increasing amounts of pain medication. Currently receiving fentanyl 125mcg via patch, po Dilaudid 6mg q3h, IV Dilaudid 2mg q3h, Ativan 1mg TID for the most part, all on schedule. Reportedly asking nursing overnight to wake her up to get her scheduled medication doses as she was in so much pain. In the AM, jone discussion about her full code status and increasing need for narcotic pain medications along with benzos that could potentially terminally suppress her respiratory drive. Nursing was at bedside as well during that discussion. Pt noted that her desire to be a full code was to ensure that family members had a chance to get to her and say goodbye should she have a turn for the worse. She noted that her main goal was to spend as much time with loved ones as she could and she does not want to in the hospital. She noted she has a sister who resides in another state. The option of hospice care was brought up and she stated that she would like more information but would also like to go home with her loved ones. Case management was advised as well as her inpatient Palliative care provider of patient's desire for more information about hospice and desire to go home. Ritchie noted that her pain at that time was well controlled and she noted that she had not used the IV Dilaudid since earlier in the night. Later notified by nursing that pt was in tears with increased pain and stating that she was not able to go home with this degree of pain. On arrival at bedside, was present. Again jone discussion of her need for increasing narcotic pain medication and the desire to do no harm with her desire at that time to remain a full code. The risk of respiratory drive suppression with need for intubation and ventilator support with increasing doses and frequency of her narcotic pain meds was once again explained, this time with at bedside. It was also explained that she would be able to receive as much pain medications as frequently as she would like if she was comfort measures. Her code status was once again discussed at that time. indicated that over the last few months he has noted a significant decline and was aware of the terminal nature of her diagnosis with the significant spread. He stated that he would like to see her comfortable. Ritchie was in tears and verbalized understanding and agreement but stated that she would like to discuss this further with her sister. Later called back to pt's bedside by nursing as Ritchie had indicated that she would like to discuss things further. Upon entry into the room, and Ritchie indicated that they had contacted family and advised of the situation. Ritchie indicated that she would like to be made comfortable and be made a DNR/DNI. She noted that her pain level was increasing and she would like to get her medications as frequently as she needed. She indicated that she was aware of the risk of respiratory depression and though she is a DNR/DNI, she would like Narcan available for her use if needed. Pt was made comfort measures and her Dilaudid doses were increased in frequency to q2h. Will await further recommendations from inpatient Palliative Care. Consider a dilaudid drip if need for increased pain medication. 07/27: notified by nursing that pt was asking for med every half hour. Per pt, she would just like to know what time her next dose of medication is due. Palliative was at bedside. Pt declined Dilaudid pump/drip. Per palliative family discussion, NO MORE NARCAN use, pt fully comfort measures. 07/28: Pt transitioned to inpatient hospice care/[facility] on 07/28/2023. Started on a D ilaudid BRIDGE MANAGER pump, can titrate up to meet pt's needs. Appreciate hospice recs. Primary adenocarcinoma of lung: Mets to brain and bone: New Metastatic Lesion: Chronic Followed with Dr. Charlton, now with [facility] and trying to establish care with Dr. David for another opinion scheduled 08/17/23 Overall poor prognosis New lesion identified on face CT: 1. A 2.5 x 2.5 cm destructive lesion centered within the ramus of the right hemimandible consistent with metastatic disease. No evidence for pathologic fracture at this time. 2. Re-demonstration of the 13 mm intracranial metastatic focus within the right temporal lobe. Will involve ST for safe swallowing techniques Acute on chronic pain Outpatient regimen Dilaudid 4 mg p.o. every 4 as needed, Ativan 0.5 mg p.o. 3 times daily Fentanyl TD patch recently increased from 50 mcg to 100 mcg 07/17; then to 112 mcg as of 07/21 and 07/24 increased to 125mcg Follows with Palliative medicine as outpatient; re-involve while here Involve pain management for additional eval; Current pain regimen 6mg po q3hr mg Dilaudid and 2mg IV dilaudid q3hr for breakthrough pain Has been put on bowel regimen Continue with anxiolytic appreciate palliative and pain management assistance 07/24: Pt seen by Palliative Care once more, fentanyl patch dose increased to 125mcg. 07/25: States that pain is improved but still present, plans to follow up ou tpatient with oncology 07/26: Pt made comfort measures, see above discussion Comfort measures at this time Tachycardia Noted on 07/23. Pt known to be tachycardic, previously evaluated by cardiology at one prior admission Likely multifactorial in setting of cancer, uncontrolled pain and chronic anemia, currently worsening. Was started on metoprolol overnight. Continue to monitor. 07/25-improving 07/26- pt made comfort measures, continue current management Primary adenocarcinoma of upper lobe of right lung: Current plan is to resume outpatient therapy once stable and discharged from hospital Patient was also planning on getting a third opinion regarding chemo regimen from Dr. David 07/24- per Palliative, encouraged pt to get third opinion from [facility] where she has been seen [place] 07/26- pt made comfort measures, see discussion above Pancytopenia Anemia Pt with noted worsening anemia, thrombocytopenia and leukopenia. Has occurred in the past. Holding dvt prophylaxis Consider oncology recall inpatient Per discussion with palliative on 07/24, pt to seek third opinion from William marcial rather than Dr David 07/25-transfused 1U pRBCs on 07/25 given pt's symptoms and hgb of 7.2 07/26- hgb stable Metastasis to brain: Metastatic lesions in the brain and in the bones was shown to the patient's through the computer imaging Denies any headache Intractable N/V: improved continue prn phenergan Hypomagnesemia: repleted Hypokalemia: repleted, check bmp Tobacco use: Chronic Currently smoking 5 cigarettes per day Smoking cessation recommended Prescribed Ellipta, Advair; continue Albuterol PRN; continue CODE STATUS: DNR/DNI, comfort measures at this time Admission and Anticipated Discharge Date Admission Date: July 28, 2023 History of Present Illness Chief Complaint: Inpatient Hospice Care transition Primary Care Provider: Josue Blake MD Ms. 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 She had #2/10 radiation to her left iliac crest on with persistent pain since. Additional PMH includes chronic pancytopenia (baseline hemoglobin 10-11), history of PE ( not on anticoagulation)endometrial cancer status post surgery, prediabetes, SLE, cancer pain on narcotics, ADD/mood disorder, pseudocholinesterase deficiency, esophageal ulcer as per records, ongoing tobacco use. Follows with palliative medicine as an outpatient for symptom management. She has had 18 admissions in the last year. Pt stated that she would like to be made comfort measures on 07/26/2023 with DNR/DNI status. Transitioned to [facility]/inpatient hospice care on 07/28/2023. Allergies Allergy/AdvReac Type Severity Reaction Status Date / Time levofloxacin [From Levaquin] Allergy Severe THROAT Verified 07/08/23 19:23 SWELLS SHUT, ITCHY--RASH PER GM[facility] Penicillins Allergy Severe Anaphylaxis Verified 07/08/23 19:23 clindamycin Allergy Intermediate CAUSED A Verified 07/08/23 19:23 YEAST INFECTION X 6 MONTHS povidone-iodine Allergy Intermediate Rash Verified 07/08/23 19:23 [From Betadine] silver Allergy Intermediate Rash Verified 07/08/23 19:23 [From Tegaderm AG Mesh] bupropion [From Wellbutrin] AdvReac Severe suicidal Verified 07/08/23 19:23 ideation duloxetine AdvReac Severe suicidal Verified 07/08/23 19:23 ideations sulfamethoxazole AdvReac Mild YEAST Verified 07/08/23 19:23 [From Bactrim] INFECTION trimethoprim [From Bactrim] AdvReac Mild YEAST Verified 07/08/23 19:23 INFECTION ANESTHESIA AdvReac Severe PER Uncoded 07/08/23 19:23 GMG--PSEUDOCHLOINESTERASE---FLAT LINES PLASTIC AdvReac Severe SKIN PEELS Uncoded 07/08/23 19:23 Home Medications Medication Instructions Recorded Confirmed Type albuterol sulfate 90 mcg/actuation 2 puff inhalation Q4H PRN 03/28/23 07/28/23 History aerosol inhaler (Ventolin HFA) Shortness Of Breath Or Wheezing chlorpromazine 25 mg tablet 25 mg PO QID PRN Hiccups 03/28/23 07/28/23 History cyanocobalamin (vitamin B-12) 1,000 mcg IM MONTHLY 03/28/23 07/28/23 History 1,000 mcg/mL injection solution fluticasone propionate 230 2 puff inhalation BID 03/28/23 07/28/23 History mcg-salmeterol 21 mcg/actuation HFA inhaler (Advair HFA) folic acid 1 mg tablet 1 mg PO DAILY 03/28/23 07/28/23 History lorazepam 0.5 mg tablet 0.5 mg PO TID PRN Anxiety 03/28/23 07/28/23 History ondansetron HCl 8 mg tablet 8 mg PO TID PRN Nausea And Vomiting 03/28/23 07/28/23 History umeclidinium 62.5 mcg/actuation 1 inh inhalation DAILY 03/28/23 07/28/23 History blister powder for inhalation (Incruse Ellipta) Magic Mouthwash 300 mL mouthwash 10 ml mucous membrane ACHS PRN 05/28/23 07/28/23 History dysphagiea pantoprazole 40 mg tablet,delayed 40 mg PO BID 07/02/23 07/28/23 History release dexamethasone 4 mg tablet 4 mg PO UD 07/18/23 07/28/23 History ibuprofen 800 mg tablet 800 mg PO Q8H PRN Pain, Moderate 07/18/23 07/28/23 History promethazine 25 mg tablet 25 mg PO Q6H PRN n/v 07/18/23 07/28/23 History fentanyl 50 mcg/hr transdermal See Rx Instructions .Route 07/26/23 07/28/23 Rx patch .COMPLEX #2 ea hydromorphone 2 mg tablet 6 mg (3 x 2 mg) PO Q4H PRN pain 07/26/23 07/28/23 Rx (Dilaudid) #36 tabs magnesium chloride 64 mg 64 mg PO BID #60 tabs 07/26/23 07/28/23 Rx (magnesium chloride) tablet,delayed release (Mag 64) potassium chloride 20 mEq 20 meq PO BID #60 tabs 07/26/23 07/28/23 Rx tablet,extended release(part/cryst) Past Med/Surg History Medical History Pneumonia Fever Chest fullness Dysphasia Pneumonia Chest pain Community acquired pneumonia Chronic low back pain Chronic cough Pseudocholinesterase deficiency Encounter for pre-operative examination Pancytopenia Primary adenocarcinoma of upper lobe of right lung (10/03/22) Endometriosis of the uterus, unspecified Asthma ADHD Tobacco abuse Systemic lupus erythematosus Surgical History H/O right wrist surgery H/O: hysterectomy History of cholecystectomy Hx of appendectomy H/O tubal ligation S/P bronchoscopy Family History Mother Cancer Breast Grandmother (Maternal) Cancer Lung Social History Smoking Status: Current every day smoker Tobacco Type: Cigarettes Cigarettes Per Day: 1 ppd; Second Hand Exposure: Yes; Do You Dip or Chew Tobacco: No; Hx Alcohol Use: No Hx Substance Use: No Preferred Language: Uzbek Communication Ability: Effective Visual Impairment: No Limitations Hearing Ability: Normal Resident Programs Assistant Required: No Beliefs That Will Affect Care: None marital status: Single Current Living Situation: Spouse Current Living Situation Comment: engaged current occupational status: unemployed 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 No acute distress Psych: Appropriate mood and affect Neuro: No gross deficits HEENT: NC/AT CV: RRR, Normal s1, s2. Resp: Breath sounds clear bilaterally, no increased effort of breathing. Abdomen: Soft, nontender Extremities: moves extremities bilaterally. Code Status & VTE Plan VTE Prophylaxis Plan VTE Prophylaxis will be ordered: Yes
[2023-07-28] MEDS ORDERED: FIRST - Mouthwash BLM 119 ML PO PRN (18:35)
[2023-07-28] MEDS: SODIUM CHLORIDE 0.9% 1,000 ML IV SCH (19:26)
[2023-07-28] MEDS: HYDROmorphone PCA 30 MG/30 ML IV PRN (19:30)
[2023-07-28] MEDS: HYDROmorphone Bolus from PCA IV STA (19:33)
[2023-07-28] MEDS: DOCUSATE SODIUM/SENNA 50/8.6MG TAB PO SCH (21:03)
[2023-07-28] MEDS: PANTOprazole 40 MG TAB PO SCH (21:04)
[2023-07-28] MEDS: LORazepam 0.5 MG in SYRINGE 0.25 ML IV PRN (21:20)
[2023-07-28] MEDS: KETOROLAC 30 MG/ML VIAL IV PRN (22:49)
--- OUTSIDE RECORDS SUMMARY | 2023-07-29 06:26 | External Medical Summary | Summary of Care ---
Author Name Unknown Organization [facility] Address [address] [place] [address] Phone [phone] Care Team Providers Care Sanitation Engineer Name Role Phone Josue Blake MD Primary Care Provider [phone] Reason for Visit * Reason Onset Date Comments NEW PATIENT 07/06/2023 BERNARDA SEEN SOONER Encounter Details Date Type Department Care Team (Late st Contact Info) Description 07/06/2023 Telephone Hematology/Oncology [facility] [address] [place] [address] Richard David MD [address] [place] [address] NEW PATIENT (BERNARDA SEEN SOONER) Allergies Active [...] as of this encounter (statuses as of 07/22/2023) Medications Medication Sig Dispensed Refills Start Date End Date Status BD Luer-Tamar Syringe 25G X 1" 3 ML (Syringe/Needle (Disp)) USE ONE SYRINGE FOR B12 INJECTIONS Strength: 25G X 1" 3 ML 1 Each 11 3 Active Spironolactone 100 MG Oral Tablet (Aldactone) TAKE TWO TABLETS BY MOUTH IN THE MORNING AND TWO TABLETS BEFORE BEDTIME 120 Tablet 2 3 Active Umeclidinium [place] 62.5 MCG/ACT Inhalation [...] for Nausea. 30 Tablet 1 4 Active Promethazine HCl 25 MG Oral Tablet (Phenergan) Take 1 Tablet by mouth every 6 hours as needed for Nausea. or vomiting 12 Tablet 0 3 07/13/19 24 Discontinu ed(Refill) fentaNYL 50 MCG/HR Transdermal Patch 72 Hour (Duragesic)Indicati ons:Cancer related pain Place 1 Patch over 72 hours topically on the skin every 3 days. 5 Patch 0 3 07/06/19 24 Discontinu ed(Refill) HYDROmorphone HCl 4 MG Oral Tablet (Dilaudid)Indicatio ns:Cancer related pain Take 1 Tablet by mouth every 4 hours as needed for Pain, Severe. 30 Tablet 0 4 07/06/19 24 Discontinu ed(Refill) Ibuprofen 800 MG Oral Tablet (Motrin)Indications :Cancer [...] as of this encounter (statuses as of 07/22/2023) Active Problems Problem Noted Date Diagnosed Date [...] as of this encounter (statuses as of 07/22/2023) Resolved Problems Problem Noted Date Diagnosed Date [...] as of this encounter (statuses as of 07/22/2023) Immunizations Name Administration Dates Next Due TDAP [...] Telephone Encounter - Stephy Beltran CMA - 07/22/2023 9:21 AM EST Patient missed new consult with Dr. David due to being at [facility]. Called and spoke with Ritchie; agreed to be rescheduled from missed appt with Dr. David on 08/17 at 3pm Will enter into Interface[facility] as soon as closed spot opens * Telephone Encounter - Stephy Beltran CMA - 07/06/2023 12:35 PM EST Received message from HAIM Liang who advised that [facility]. Also patient was previously seen by Dr. Joaquín Charlton at [facility]. Being she would be a new patient for Dr. Tejinder David; the apointment with HAIM Liang was cancelled. She will be rescheduled to 07/21/[address] Tejinder David. Stephy will enter this into Interface[facility] as soon as the closed spot opens documented in this encounter Plan of Treatment Upcoming Encounters Date Type Department Care Team (Late st Contact Info) Description 07/28/2023 10:30 AM EST Telemedicine Palliative Medicine, [facility] [address] [facility] 5th Floor [place] [address] Becky Dial MD [address] [facility] [place] [address] 11/02/2023 12:00 PM EDT Office Visit [facility] [address] [place] [address] Josue Blake MD [address] [place] [address] Health Maintenance Due Date Last Done Comments [...] this encounter Medical Devices Implanted Type Area Lab Aid Device Identifier Shelf Expiration Date Model / Serial / Lot Desara One Single Incision Sling System Implanted:Qty: 1 on 07/11/2022 by Derek Monzon MD at OR [facility] Pelvis [employer] 10/17/2023 [id number] / / [id number] Port Implant W/8f Poly Cath - [id number] Implanted:Qty: 1 on 10/27/2022 at [facility] CR BARD : PERIPHERAL VASCULAR [id number] 10/27/2023 [id number] / / [id number] Clip Padlock Pro Select - [id number] Implanted:Qty: 1 on 05/13/2023 by Destin Zhong MD at OR [facility] [id number] 03/05/2026 [id number] / / [id number] documented as of this encounter Advance Directives [...] the patient have Health Care Power of Biology Research Assistant? No Code Status History Code Status Date Activated Date Inactivated Comments Full Code 07/11/2022 8:35 AM 07/11/2022 3:33 PM This order reflects the patients wishes and were consensually agreed upon. Question Answer Comments Discussion of Advance Directives occurred with: Patient Does the patient have a Living Will? No Does the patient have Health Care Power of Biology Research Assistant? No Care Teams Sanitation Engineer Relationship Specialty Start Date End Date Josue Blake MD [address] [facility] [place] [address] PCP - General Family Medicine 02/06/22 documented as of this encounter
--- OUTSIDE RECORDS SUMMARY | 2023-07-29 06:26 | External Medical Summary | Summary of Care ---
Author Name Unknown Organization [facility] Address [address] [place] [address] Phone [phone] Care Team Providers Care Digital Marketing Manager Name Role Phone Josue Blake MD Primary Care Provider [phone] Reason for Visit * Reason Onset Date Comments No Show 07/21/2023 Encounter Details Date Type Department Care Team (Late st Contact Info) Description 07/21/2023 Telephone Hematology/Oncology, [address] [address] Richard David MD [address] [place] [address] No Show Allergies Active Allergy Reactions Criticality Noted Date [...] BEDTIME 120 Tablet 2 01/09/2023 Active Umeclidinium [place] 62.5 MCG/ACT Inhalation Aerosol Powder Breath Activated [...] the evening. 24 Suppository 0 02/04/2023 Active Polyethylene Glycol 3350 17 GM/SCOOP Oral [...] before bedtime. 120 mL 1 06/10/2023 Active guaiFENesin ER 600 MG Oral Tablet [...] evening meals. 20 Tablet 0 06/17/2023 Active Ondansetron HCl 8 MG Oral Tablet (Zofran)Indications :Primary adenocarcinoma of upper lobe of right lung (HCC) Take 1 Tablet by mouth every 8 hours as needed for Nausea. 30 Tablet 1 07/01/2023 Active Promethazine HCl 25 MG Oral Tablet (Phenergan) Take 1 Tablet by mouth every 6 hours as needed for Nausea. or vomiting 12 Tablet 0 07/14/2023 Active HYDROmorphone HCl 4 MG Oral Tablet (Dilaudid)Indicatio ns:Cancer related pain Take 1 Tablet by mouth every 4 hours as needed for Pain, Severe. 42 Tablet 0 07/15/2023 Active Ibuprofen 800 MG Oral Tablet (Motrin)Indications :Cancer related pain Take 1 Tablet by mouth every 8 hours as needed for Pain, Moderate. 60 Tablet 3 07/15/2023 Active Hospital, Clinic, or Other Facility Administered [...] Encounter - Stephy Beltran CMA - 07/22/2023 9:20 AM EST Called and spoke with Ritchie; agreed to be rescheduled from missed appt with Dr. David on 08/17 at 3pm Will enter into [facility] as soon as closed spot opens * Telephone Encounter - Shayy Ferreira RN - 07/21/2023 11:50 AM EST This is a new patient appt, patient transferring to Dr David from [facility] (had transferred there from Dr Charlton). * Telephone Encounter - Marcia Velez LPN - 07/21/2023 11:14 AM EST Pt did not show for MD appt today. Pt may be in hospital. From notes it shows she went to [facility] yesterday for increased pain. Scheduling: Can you please reach out to see when patient would like to reschedule? NS: FYI documented in this encounter Plan of Treatment Upcoming Encounters Date Type Department Care Team (Late st Contact Info) Description 07/28/2023 10:30 AM EST Telemedicine Palliative Medicine, [address] 5th [address] [place] [address] [facility] [address] [facility] [address] 11/02/2023 12:00 PM EDT Office Visit [facility] [address] [place] [address] Josue Blake MD [address] [place] [address] Health Maintenance Due Date Last Done Comments [...] this encounter Medical Devices Implanted Type Area Game Artist Device Identifier Shelf Expiration Date Model / Serial / Lot Desara One Single Incision Sling System Implanted:Qty: 1 on 07/11/2022 by Derek Monzon MD at OR [facility] Pelvis [employer] 10/17/2023 [id number] / / [id number] Port Implant W/8f Poly Cath - [id number] Implanted:Qty: 1 on 10/27/2022 at [facility] CR BARD : PERIPHERAL VASCULAR [id number] 10/27/2023 [id number] / / [id number] Clip Padlock Pro Select - [id number] Implanted:Qty: 1 on 05/13/2023 by Destin Zhong MD at OR [facility] [id number] 03/05/2026 [id number] / / [id number] documented as of this encounter Advance Directives [...] the patient have Health Care Power of Posting Specialist? No Code Status History Code Status Date Activated Date Inactivated Comments Full Code 07/11/2022 8:35 AM 07/11/2022 3:33 PM This order reflects the patients wishes and were consensually agreed upon. Question Answer Comments Discussion of Advance Directives occurred with: Patient Does the patient have a Living Will? No Does the patient have Health Care Power of Posting Specialist? No Care Teams Digital Marketing Manager Relationship Specialty Start Date End Date Josue Blake MD [address] [facility] [place] [address] PCP - General Family Medicine 02/06/22 documented as of this encounter
--- OUTSIDE RECORDS SUMMARY | 2023-07-29 06:26 | External Medical Summary | Summary of Care ---
Author Name Unknown Organization [facility] Address [address] [place] [address] Phone [phone] Care Team Providers Care Radio Station Operator Name Role Phone Josue Blake MD Primary Care Provider [phone] Reason for Visit * Reason Onset Date Comments Advice 04/27/2023 Encounter Details Date Type Department Care Team (Late st Contact Info) Description 04/27/2023 Telephone Family Practice [facility] [address] [facility] [place] [id number] Josue Blake MD [address] [facility] [place] [id number] Advice Allergies Active Allergy Reactions Criticality Noted [...] as of this encounter (statuses as of 07/27/2023) Medications Medication Sig Dispensed Refills Start Date End Date Status BD Luer-Tamar Syringe 25G X 1" 3 ML (Syringe/Needle (Disp)) USE ONE SYRINGE FOR B12 INJECTIONS Strength: 25G X 1" 3 ML 1 Each 11 09/16/2022 Active Spironolactone 100 MG Oral Tablet (Aldactone) TAKE TWO TABLETS BY MOUTH IN THE MORNING AND TWO TABLETS BEFORE BEDTIME 120 Tablet 2 01/09/2023 Active Umeclidinium [place] 62.5 MCG/ACT Inhalation Aerosol Powder Breath Activated [...] with Alimta 24 Tablet 1 03/25/2023 Active Hospital, Clinic, or Other Facility Administered Medication Ordered Dose Route Frequency Start Date End Date Status hEParin 10,000 Units, bupivacaine (Sensorcaine) 30 mL, methylPREDNISolone sodium succ (SOLU-Medrol) 125 mg, gentamicin 80 mg, sodium bicarbonate 2 mEq bladder instillationIndications:Inter stitial cystitis IS QWEEK 08/19/2022 Active documented as of this encounter (statuses as of 07/27/2023) Active Problems Problem Noted Date Diagnosed Date [...] as of this encounter (statuses as of 07/27/2023) Resolved Problems Problem Noted Date Diagnosed Date [...] as of this encounter (statuses as of 07/27/2023) Immunizations Name Administration Dates Next Due TDAP (age 10 and older)(Boostrix) 08/27/2017 documented as of this encounter Social History Tobacco Use Types Packs/Day Years Used Date Smoking Tobacco: Every Day Cigarettes 1 33 Smokeless Tobacco: Never Comments:Currently at 4 ciga rettes every other day Alcohol Use Standard Drinks/Week Comments No 0 [...] on file documented as of this encounter Miscellaneous Notes * Telephone Encounter - Roxana Pulido LPN - 04/27/2023 4:15 PM EDT Patient is calling. Can't get warm. She is sweating. Like she has cold sweats. Has not taken her temperature. Can't swallow. Can't eat. Water is hard to get it to go down. Was in [facility] for almost a month with pneumonia. Had problems since she went to the hospital with swallowing. Said they couldn't do anything. 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 She had pneumonia and rhino virus. Has drunk about 10 ounces of gator-dustin since last night and that is the last time she has had fluid. Has voided twice today. Small amounts. She is fatigued, lethargic. No congestion. No coughing. She has a port and has been getting IV antibiotics. Said Home Health was in yesterday. She was having problems swallowing then, but not like she is now. Asking for advice. Called the office. Spoke to Radha. Will makes sure Dr. Blake gets the message and will call the patient back. * Telephone Encounter - Iveth Gray OSA - 04/27/2023 4:13 PM EDT Reason for patient's call: can't get warm, has fatigue and issues swallowing looking for directive Caller was transferred to Roxana at the nurse line. documented in this encounter Plan of Treatment Upcoming Encounters Date Type Department Care Team (Late st Contact Info) Description 07/31/2023 10:00 AM EST Office Visit [facility] [address] [place] [address] Kimberly Blank CRNP [address] [place] [address] 11/02/2023 12:00 PM EDT Office Visit [facility] [address] [place] [address] Josue Blake MD [address] [place] [address] Health Maintenance Due Date Last Done Comments [...] this encounter Medical Devices Implanted Type Area Bargeman Device Identifier Shelf Expiration Date Model / Serial / Lot Desara One Single Incision Sling System Implanted:Qty: 1 on 07/11/2022 by Derek Monzon MD at OR [facility] [address] Pelvis [employer] 10/17/2023 [id number] / / [id number] Port Implant W/8f Poly Cath - [id number] Implanted:Qty: 1 on 10/27/2022 at [facility]HERAL [facility] [id number] 10/27/2023 [id number] / / [id number] Clip Padlock Pro Select - [id number] Implanted:Qty: 1 on 05/13/2023 by Destin Zhong MD at OR [facility] [id number] 03/05/2026 [id number] / / [id number] documented as of this encounter Advance Directives [...] patient have Health Care Power of Senior Application Programmer? No Code Status History Code Status Date Activated Date Inactivated Comments Full Code 07/11/2022 8:35 AM 07/11/2022 3:33 PM This order reflects the patients wishes and were consensually agreed upon. Question Answer Comments Discussion of Advance Directives occurred with: Patient Does the patient have a Living Will? No Does the patient have Health Care Power of Senior Application Programmer? No Care Teams Radio Station Operator Relationship Specialty Start Date End Date Josue Blake MD [address] [place] [address] PCP - General Family Medicine 02/06/22 documented as of this encounter
--- OUTSIDE RECORDS SUMMARY | 2023-07-29 06:26 | External Medical Summary | Summary of Care ---
Author Name Unknown Organization [facility] Address [address] [place] [address] Phone [phone] Care Team Providers Care Music Department Chair Name Role Phone Josue Blake MD Primary Care Provider [phone] Reason for Visit * Reason Onset Date Comments NEW PATIENT 07/06/2023 BERNARDA SEEN SOONER Encounter Details Date Type Department Care Team (Late st Contact Info) Description 07/06/2023 Telephone Hematology/Oncology [facility] [address] [place] [address] Richard David MD [address] [place] [address] NEW PATIENT (BERNARDA SEEN SOONER) Allergies Active [...] BEDTIME 120 Tablet 2 3 Active Umeclidinium [place] 62.5 MCG/ACT Inhalation Aerosol Powder Breath Activated [...] with Dr. David due to being at [facility]. Called and spoke with Ritchie; agreed to be rescheduled from missed appt with Dr. David on 08/17 at 3pm Will enter into Voice [facility]ist as soon as closed spot opens * Telephone Encounter - Stephy Beltran CMA - 07/06/2023 12:35 PM EST Received message from HAIM Liang who advised that [facility]. Also patient was previously seen by Dr. Joaquín Charlton at [facility]. Being she would be a new patient for Dr. Tejinder David; the apointment with HAIM Liang was cancelled. She will be rescheduled to 07/21/[address] Tejinder David. Stephy will enter this into Voice Assist as soon as the closed spot opens documented in this encounter Plan of Treatment Upcoming Encounters Date Type Department Care Team (Late st Contact Info) Description 07/28/2023 10:30 AM EST Telemedicine Palliative Medicine, [facility] [address] [facility] 5th Floor [place] [address] Becky Dial MD [address] [facility] [place] [address] 11/02/2023 12:00 PM EDT Office Visit [facility] [address] [place] [address] Josue Blake MD [address] [place] [address] Health Maintenance Due Date Last Done Comments [...] this encounter Medical Devices Implanted Type Area Family Resource Management Specialist Device Identifier Shelf Expiration Date Model / Serial / Lot Desara One Single Incision Sling System Implanted:Qty: 1 on 07/11/2022 by Derek Monzon MD at OR [facility] [employer]vis [employer] 10/17/2023 [id number] / / [id number] Port Implant W/8f Poly Cath - [id number] Implanted:Qty: 1 on 10/27/2022 at [facility] : PERIPHERAL VASCULAR [id number] 10/27/2023 [id number] / / [id number] Clip Padlock Pro Select - [id number] Implanted:Qty: 1 on 05/13/2023 by Destin Zhong MD at OR [facility] [id number] 03/05/2026 [id number] / / [id number] documented as of this encounter Advance Directives [...] the patient have Health Care Power of Service Order Taker? No Code Status History Code Status Date Activated Date Inactivated Comments Full Code 07/11/2022 8:35 AM 07/11/2022 3:33 PM This order reflects the patients wishes and were consensually agreed upon. Question Answer Comments Discussion of Advance Directives occurred with: Patient Does the patient have a Living Will? No Does the patient have Health Care Power of Service Order Taker? No Care Teams Music Department Chair Relationship Specialty Start Date End Date Josue Blake MD [address] [facility] [place] [address] PCP - General Family Medicine 02/06/22 documented as of this encounter
--- OUTSIDE RECORDS SUMMARY | 2023-07-29 06:27 | External Medical Summary ---
Author Name Unknown Address Unknown Organization K01:LABORATORY [facility] - [address] [facility] [place] [address] Laboratory Report Ordering Provider Test Date Status DEL MIRELES 07/15/2023 15:22:15 Final Drugs that require complianc e testing:

Opioids:
Fentanyl: Quantity 75mcg/hr Date/Time of last Dose 07/15/2023
Hydromorphone: Quantity 4mg Date/Time of last Dose 07/14/2023

Benzodiazepines

Cutoff Concentration:
Drug Level
THC-COOH 10 ng/mL

This test was developed and its performance characteristics determined by [employer] [facility]. It has not been cleared or approved by the [place] Food and Drug Administration.
null Observation Date Value Abnormality Reference (Units ) Status METHODOLOGY 07/15/2023 15:22:15 LC-MS/MS Final Cannabinoids, Urine confirmatory 07/15/2023 15:22:15 15 Above high normal Negative (ng/mL) Final Performing Location LABORATORY [facility] - [address] [facility] [place] [address]
--- OUTSIDE RECORDS SUMMARY | 2023-07-29 06:27 | External Medical Summary ---
Author Name Unknown Address Unknown Organization K01:LABORATORY [facility] - [address] [facility] [address] Laboratory Report Ordering Provider Test Date Status CHI,VITDAVION 07/15/2023 15:22:15 Final Drugs that require complianc e testing:

Opioids:
Fentanyl: Quantity 75mcg/hr Date/Time of last Dose 07/15/2023
Hydromorphone: Quantity 4mg Date/Time of last Dose 07/14/2023

Benzodiazepines

Cutoff Concentrations:
Drug Level
Amphetamines 500 ng/mL
Benzodiazepines 100 ng/mL
Cannabinoids 50 ng/mL
Cocaine Metabolite 150 ng/mL
Fentanyl 1 ng/mL
Hydrocodone / Hydromorphone 300 ng/mL
Methadone Metabolite 100 ng/mL
Morphine / Codeine 300 ng/mL
Oxycodone / Oxymorphone 100 ng/mL

Screening results are presumptive and can only be used for medical purposes. Confirmatory testing is available upon request. Observation Date Value Abnormality Reference (Units) Status COMPLIANCE INTERPRETATION 07/15/2023 15:22:15 Based on the medication information provided: Final COMPLIANCE INTERPRETATION 07/15/2023 15:22:15 The presence of THC metabolite and morphine is INCONSISTENT with the information provided. Final COMPLIANCE INTERPRETATION 07/15/2023 15:22:15 The presence of hydromorphone is CONSISTENT with hydromorphone use. Final COMPLIANCE INTERPRETATION 07/15/2023 15:22:15 The positive fentanyl screening result is CONSISTENT with fentanyl use. Confirmatory testing is available upon request. Final Changed Report: Previously r eported on 07/16/2023 at 1222 EST. See Results History in EPIC for previous versions of the report. Amphetamines, Urine screen 07/15/2023 15:22:15 Negative Negative Final Benzodiazepines, Urine screen 07/15/2023 15:22:15 Negative Negative Final Cannabinoids, Urine screen 07/15/2023 15:22:15 Refer to confirmation results Abnormal Negative Final Cocaine Metabolite, Urine screen 07/15/2023 15:22:15 Negative Negative Final fentaNYL [Presence] in Urine by Screen method 07/15/2023 15:22:15 Positive Abnormal Negative Final HYDROcodone [Presence] in Urine by Screen method 07/15/2023 15:22:15 Refer to confirmation results Abnormal Negative Final 6-Juipbaklog-3,5-Dimeth yl-3,3-Diphenylpyrrolid ine (EDDP) [Presence] in Urine 07/15/2023 15:22:15 Negative Negative Final Opiates, Urine screen 07/15/2023 15:22:15 Refer to confirmation results Abnormal Negative Final oxyCODONE [Presence] in Urine by Screen method 07/15/2023 15:22:15 Refer to confirmation results Abnormal Negative Final FORENSIC VALID INTERPRETATION 07/15/2023 15:22:15 Normal Final Creatinine, Urine 07/15/2023 15:22:15 43 (mg/dL) Final Performing Location LABORATORY [facility] [place] - [facility] [address]
--- OUTSIDE RECORDS SUMMARY | 2023-07-29 06:27 | External Medical Summary ---
Author Name Unknown Address Unknown Organization K01:LABORATORY [place] [address] [facility] [address] Laboratory Report Ordering Provider Test Date Status DEL MIRELES 07/15/2023 15:22:15 Final Drugs that require complianc e testing:

Opioids:
Fentanyl: Quantity 75mcg/hr Date/Time of last Dose 07/15/2023
Hydromorphone: Quantity 4mg Date/Time of last Dose 07/14/2023

Benzodiazepines

Cutoff Concentrations:
Drug \X09\\X09\ Level
6-Monoacetylmorphine 5 ng/mL

This test was developed and its performance characteristics determined by [employer]. It has not been cleared or approved by the [place] Food and Drug Administration. Observation Date Value Abnormality Reference (Units ) Status METHODOLOGY 07/15/2023 15:22:15 LC-MS/MS Final 6-Monoacetylmorphine (6-LORIN) [Presence] in Urine by Screen method 07/15/2023 15:22:15 Negative Negative Final Performing Location [facility] [place] - [facility] [place] [address]
--- OUTSIDE RECORDS SUMMARY | 2023-07-29 06:27 | External Medical Summary ---
Author Name Unknown Address Unknown Organization K01:[facility]ATORY [facility] [place] [facility] [address] [facility] [address] Laboratory Report Ordering Provider Test Date Status DEL MIRELES 07/15/2023 15:22:15 Final Drugs that require complianc e testing:

Opioids:
Fentanyl: Quantity 75mcg/hr Date/Time of last Dose 07/15/2023
Hydromorphone: Quantity 4mg Date/Time of last Dose 07/14/2023

Benzodiazepines

Cutoff Concentrations:
Drug Level
Codeine 40 ng/mL
Morphine 40 ng/mL
Hydrocodone 40 ng/mL
Hydromorphone 40 ng/mL
Dihydrocodeine 40 ng/mL
Oxycodone 50 ng/mL
Oxymorphone 50 ng/mL

This test was developed and its performance characteristics determined by [employer]. It has not been cleared or approved by the [place] Food and Drug Administration. Observation Date Value Abnormality Reference (Units ) Status METHODOLOGY 07/15/2023 15:22:15 LC-MS/MS Final Codeine 07/15/2023 15:22:15 Negative Negative Final Morphine, Urine confirmatory 07/15/2023 15:22:15 >4000 Above high normal Negative (ng/mL) Final HYDROcodone cutoff [Mass/volume] in Urine for Confirmatory method 07/15/2023 15:22:15 Negative Negative Final Hydromorphone, Urine confirmatory 07/15/2023 15:22:15 >4000 Above high normal Negative (ng/mL) Final Dihydrocodeine [Mass/volume] in Urine by Confirmatory method 07/15/2023 15:22:15 Negative Negative Final oxyCODONE [Presence] in Urine by Screen method 07/15/2023 15:22:15 Negative Negative Final oxyMORphone cutoff [Mass/volume] in Urine for Confirmatory method 07/15/2023 15:22:15 Negative Negative Final Performing Location LABORATORY [facility] [place] - [facility] [address] [facility] [address]
--- NOTE | 2023-07-29 08:19 | Hospitalist Progress Note ---
Date of Service July 29, 2023 Assessment & Plan (1) Cancer, metastatic to bone: (2) Cancer-related breakthrough pain: (3) Metastatic adenocarcinoma: (4) Lung cancer metastatic to brain: (5) Pain from bone metastases: (6) Comfort measures only status: Plan Ms. 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 She had #2/10 radiation to her left iliac crest on with persistent pain since. Additional PMH includes chronic pancytopenia (baseline hemoglobin 10-11), history of PE ( not on anticoagulation)endometrial cancer status post surgery, prediabetes, SLE, cancer pain on narcotics, ADD/mood disorder, pseudocholinesterase deficiency, esophageal ulcer as per records, ongoing tobacco use. Follows with palliative medicine as an outpatient for symptom management. She has had 18 admissions in the last year. Pt stated that she would like to be made comfort measures on 07/26/2023 with DNR/DNI status. Transitioned to [facility]/inpatient hospice care on 07/28/2023. Comfort Measures Status: 07/26/2023: Overnight, reports that pt was asking for increasing amounts of pain medication. Currently receiving fentanyl 125mcg via patch, po Dilaudid 6mg q3h, IV Dilaudid 2mg q3h, Ativan 1mg TID for the most part, all on schedule. Reportedly asking nursing overnight to wake her up to get her scheduled medication doses as she was in so much pain. In the AM, jone discussion about her full code status and increasing need for narcotic pain medications along with benzos that could potentially terminally suppress her respiratory drive. Nursing was at bedside as well during that discussion. Pt noted that her desire to be a full code was to ensure that family members had a chance to get to her and say goodbye should she have a turn for the worse. She noted that her main goal was to spend as much time with loved ones as she could and she does not want to in the hospital. She noted she has a sister who resides in another state. The option of hospice care was brought up and she stated that she would like more information but would also like to go home with her loved ones. Case management was advised as well as her inpatient Palliative care provider of patient's desire for more information about hospice and desire to go home. Ritchie noted that her pain at that time was well controlled and she noted that she had not used the IV Dilaudid since earlier in the night. Later notified by nursing that pt was in tears with increased pain and stating that she was not able to go home with this degree of pain. On arrival at bedside, was present. Again jone discussion of her need for increasing narcotic pain medication and the desire to do no harm with her desire at that time to remain a full code. The risk of respiratory drive suppression with need for intubation and ventilator support with increasing doses and frequency of her narcotic pain meds was once again explained, this time with at bedside. It was also explained that she would be able to receive as much pain medications as frequently as she would like if she was comfort measures. Her code status was once again discussed at that time. indicated that over the last few months he has noted a significant decline and was aware of the terminal nature of her diagnosis with the significant spread. He stated that he would like to see her comfortable. Ritchie was in tears and verbalized understanding and agreement but stated that she would like to discuss this further with her sister. Later called back to pt's bedside by nursing as Ritchie had indicated that she would like to discuss things further. Upon entry into the room, and Ritchie indicated that they had contacted family and advised of the situation. Ritchie indicated that she would like to be made comfortable and be made a DNR/DNI. She noted that her pain level was increasing and she would like to get her medications as frequently as she needed. She indicated that she was aware of the risk of respiratory depression and though she is a DNR/DNI, she would like Narcan available for her use if needed. Pt was made comfort measures and her Dilaudid doses were increased in frequency to q2h. Will await further recommendations from inpatient Palliative Care. Consider a dilaudid drip if need for increased pain medication. 07/27: notified by nursing that pt was asking for med every half hour. Per pt, she would just like to know what time her next dose of medication is due. Palliative was at bedside. Pt declined Dilaudid pump/drip. Per palliative family discussion, NO MORE NARCAN use, pt fully comfort measures. 07/28: Pt transitioned to inpatient hospice care/[facility] on 07/28/2023. Started on a D ilaudid SHIRT SORTER pump, can titrate up to meet pt's needs. Appreciate hospice recs. 07/29 Discussed w/ hospice MD - increasing dilaudid to 3 mg cont/ hr, 1mg q1 hr prn Primary adenocarcinoma of lung: Mets to brain and bone: New Metastatic Lesion: Chronic Followed with Dr. Charlton, now with [facility] and trying to establish care with Dr. David for another opinion scheduled 08/17/23 Overall poor prognosis New lesion identified on face CT: 1. A 2.5 x 2.5 cm destructive lesion centered within the ramus of the right hemimandible consistent with metastatic disease. No evidence for pathologic fracture at this time. 2. Re-demonstration of the 13 mm intracranial metastatic focus within the right temporal lobe. Will involve ST for safe swallowing techniques Acute on chronic pain Outpatient regimen Dilaudid 4 mg p.o. every 4 as needed, Ativan 0.5 mg p.o. 3 times daily Fentanyl TD patch recently increased from 50 mcg to 100 mcg 07/17; then to 112 mcg as of 07/21 and 07/24 increased to 125mcg Follows with Palliative medicine as outpatient; re-involve while here Involve pain management for additional eval; Current pain regimen 6mg po q3hr mg Dilaudid and 2mg IV dilaudid q3hr for breakthrough pain Has been put on bowel regimen Continue with anxiolytic appreciate palliative and pain management assistance 07/24: Pt seen by Palliative Care once more, fentanyl patch dose increased to 125mcg. 07/25: States that pain is improved but still present, plans to follow up outpatient with oncology 07/26: Pt made comfort measures, see above discussion Comfort measures at this time Tachycardia Noted on 07/23. Pt known to be tachycardic, previously evaluated by cardiology at one prior admission Likely multifactorial in setting of cancer, uncontrolled pain and chronic anemia, currently worsening. Was started on metoprolol overnight. Continue to monitor. 07/25-improving 07/26- pt made comfort measures, continue current management Primary adenocarcinoma of upper lobe of right lung: Current plan is to resume outpatient therapy once stable and discharged from hospital Patient was also planning on getting a third opinion regarding chemo regimen from Dr. David 07/24- per Palliative, encouraged pt to get third opinion from [facility] where [place] 07/26- pt made comfort measures, see discussion above Pancytopenia Anemia Pt with noted worsening anemia, thrombocytopenia and leukopenia. Has occurred in the past. Holding dvt prophylaxis Consider oncology recall inpatient Per discussion with palliative on 07/24, pt to seek third opinion from [facility] rather than Dr David 07/25-transfused 1U pRBCs on 07/25 given pt's symptoms and hgb of 7.2 07/26- hgb stable Metastasis to brain: Metastatic lesions in the brain and in the bones was shown to the patient's through the computer imaging Denies any headache Intractable N/V: improved continue prn phenergan Hypomagnesemia: repleted Hypokalemia: repleted Tobacco use: Chronic Currently smoking 5 cigarettes per day Smoking cessation recommended Prescribed Ellipta, Advair; continue Albuterol PRN; continue CODE STATUS: DNR/DNI, comfort measures at this time Admission and Anticipated Discharge Date Admission Date: July 28, 2023 Subjective Pt seen in follow up, admitted to [facility] yesterday Hx of lung adenocarcinoma w/ mets Currently on SHIRT SORTER dilaudid Sitting up in bed in NAD however reports pain. She was seen by nursing service director earlier. I discussed with hospice MD over the phone. Dilaudid dose was increased. No chest pain shortness of breath. Patient has a lot of pain in her leg and jaw. Patient's present at the bedside. She would like to shower. Review of Systems Review of Systems: All systems reviewed & are unremarkable except as noted in Subjective Physical Exam Physical Exam: General: WD/WN young F in No acute distress Psych: Appropriate mood and affect Neuro: Awake and alert, answers appropriately. Moves extremities. HEENT: NC/AT CV: RRR, Normal s1, s2. Resp: Breath sounds clear bilaterally, no increased effort of breathing. Abdomen: Soft, nontender Extremities: moves extremities bilaterally. Results & Data Results & Data Vital Signs (Past 12 Hours) Vital Signs O2 Del Method O2 Flow Rate 07/28/23 21:03 Room Air, Nasal Cannula 2 Medications Administered Current Inpatient Medications Acetaminophen (Acetaminophen 325 Mg Tab) 650 mg PO Q6H PRN PRN Reason: Fever 37.8C or greater Stop: 08/27/23 18:04 Albuterol (Albuterol Hfa 8 Gm Inhaler) 2 puffs INH Q4H PRN PRN Reason: Shortness Of Breath Or Wheezing Stop: 08/27/23 18:24 Chlorpromazine HCl (Chlorpromazine Hcl 25 Mg Tab) 25 mg PO QID PRN PRN Reason: Hiccups Stop: 08/27/23 18:24 Cyanocobalamin (Cyanocobalamin 1000 Mcg/Ml Vial) 1,000 mcg IM Q30D [facility] Stop: 08/28/23 08:59 Fluticasone/Vilanterol (Fluticasone/Vilanterol 200/25mcg 14 Puffs/Inhaler) 1 puffs INH DAILY [facility] Stop: 08/28/23 08:59 Folic Acid (Folic Acid 1 Mg Tab) 1 mg PO DAILY [facility] Stop: 08/28/23 08:59 Hydromorphone HCl (Hydromorphone Esthetics Instructor 30 Mg/30 Ml) 30 mg IV PRN PRN; Protocol PRN Reason: SHIRT SORTER Pain Titration Stop: 08/11/23 18:04 Last Admin: 07/29/23 06:47 Dose: 30 mg Lorazepam 0.5 mg/ Syringe 0.5 mls @ 2 mls/min IV Q4H PRN; Protocol PRN Reason: Anxiety/Agitation Stop: 08/27/23 18:04 Last Admin: 07/28/23 21:20 Dose: 2 mls/min Sodium Chloride (Nss) 1,000 mls @ 30 mls/hr IV .Q24H [facility] Stop: 08/11/23 18:08 Last Admin: 07/28/23 19:26 Dose: 30 mls/hr Ibuprofen (Ibuprofen 800 Mg Tab) 800 mg PO Q8H PRN PRN Reason: Pain, Moderate Stop: 08/27/23 18:24 Ketorolac Tromethamine (Ketorolac 30 Mg/Ml Vial) 30 mg IV Q6H PRN PRN Reason: Pain not relieved by IBUPROFEN Stop: 08/02/23 18:28 Last Admin: 07/29/23 04:54 Dose: 30 mg Lorazepam (Lorazepam 0.5 Mg Tab) 0.5 mg PO Q4H PRN PRN Reason: Anxiety/Agitation Stop: 08/27/23 18:04 Multi-Ingredient Mouthwash/Gargle (First - Mouthwash Blm 119 Ml) 10 ml PO ACHS PRN PRN Reason: dysphagia Stop: 08/27/23 18:34 Naloxone HCl (Naloxone Hcl 0.4 Mg/1 Ml Vial/Carp) 0.1 mg IV Q5M PRN; Protocol PRN Reason: Oversedation/Resp Depression Stop: 08/11/23 18:04 Ondansetron HCl (Ondansetron Inj 2 Mg/Ml 2 Ml Vial) 4 mg IV Q4H PRN PRN Reason: Nausea &/or Vomiting Stop: 08/27/23 18:04 Ondansetron HCl (Ondansetron 4 Mg Od Tab) 4 mg SL Q4H PRN PRN Reason: Nausea &/or Vomiting Stop: 08/27/23 18:04 Pantoprazole Sodium (Pantoprazole 40 Mg Tab) 40 mg PO BID [facility] Stop: 08/27/23 20:59 Last Admin: 07/28/23 21:04 Dose: Not Given Promethazine HCl (Promethazine Hcl 25 Mg Tab) 25 mg PO Q6H PRN PRN Reason: n/v not relieved by Zofran Stop: 08/27/23 18:24 Senna/Docusate Sodium (Docusate Sodium/Senna 50/8.6mg Tab) 1 tab PO BID [facility] Stop: 08/11/23 20:59 Last Admin: 07/28/23 21:03 Dose: Not Given Umeclidinium Vernon (Umeclidinium Vernon 62.5mcg/Blister 7 Puffs/Inhaler) 1 puffs INH DAILY [facility] Stop: 08/28/23 08:59
[2023-07-29] MEDS: ONDANSETRON INJ 2 MG/ML 2 ML VIAL IV PRN (08:43)
[2023-07-29] MEDS: UMECLIDINIUM BROMIDE 62.5MCG/BLISTER 7 PUFFS/INHALER INH SCH (08:47)
[2023-07-29] MEDS: FLUTICASONE/VILANTEROL 200/25MCG 14 PUFFS/INHALER INH SCH (08:47)
[2023-07-29] MEDS: CYANOCOBALAMIN 1000 MCG/ML VIAL IM SCH (08:48)
[2023-07-29] MEDS: FOLIC ACID 1 MG TAB PO SCH (08:49)
[2023-07-29] MEDS: PROMETHAZINE HCL 25 MG TAB PO PRN (09:46)
[2023-07-29] MEDS: ALBUTEROL HFA 8 GM INHALER INH PRN (11:35)
[2023-07-29] MEDS: IBUPROFEN 800 MG TAB PO PRN (14:02)
[2023-07-29] MEDS: chlorproMAZINE HCL 25 MG TAB PO PRN (20:55)
--- NOTE | 2023-07-30 15:39 | Hospitalist Progress Note ---
Date of Service July 30, 2023 Assessment & Plan (1) Cancer, metastatic to bone: (2) Cancer-related breakthrough pain: (3) Metastatic adenocarcinoma: (4) Lung cancer metastatic to brain: (5) Pain from bone metastases: (6) Comfort measures only status: Plan Ms. 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 She had #2/10 radiation to her left iliac crest on with persistent pain since. Additional PMH includes chronic pancytopenia (baseline hemoglobin 10-11), history of PE ( not on anticoagulation)endometrial cancer status post surgery, prediabetes, SLE, cancer pain on narcotics, ADD/mood disorder, pseudocholinesterase deficiency, esophageal ulcer as per records, ongoing tobacco use. Follows with palliative medicine as an outpatient for symptom management. She has had 18 admissions in the last year. Pt stated that she would like to be made comfort measures on 07/26/2023 with DNR/DNI status. Transitioned to [facility]/inpatient hospice care on 07/28/2023. Comfort Measures Status: 07/26/2023: Overnight, reports that pt was asking for increasing amounts of pain medication. Currently receiving fentanyl 125mcg via patch, po Dilaudid 6mg q3h, IV Dilaudid 2mg q3h, Ativan 1mg TID for the most part, all on schedule. Reportedly asking nursing overnight to wake her up to get her scheduled medication doses as she was in so much pain. In the AM, jone discussion about her full code status and increasing need for narcotic pain medications along with benzos that could potentially terminally suppress her respiratory drive. Nursing was at bedside as well during that discussion. Pt noted that her desire to be a full code was to ensure that family members had a chance to get to her and say goodbye should she have a turn for the worse. She noted that her main goal was to spend as much time with loved ones as she could and she does not want to in the hospital. She noted she has a sister who resides in another state. The option of hospice care was brought up and she stated that she would like more information but would also like to go home with her loved ones. Case management was advised as well as her inpatient Palliative care provider of patient's desire for more information about hospice and desire to go home. Ritchie noted that her pain at that time was well controlled and she noted that she had not used the IV Dilaudid since earlier in the night. Later notified by nursing that pt was in tears with increased pain and stating that she was not able to go home with this degree of pain. On arrival at bedside, was present. Again jone discussion of her need for increasing narcotic pain medication and the desire to do no harm with her desire at that time to remain a full code. The risk of respiratory drive suppression with need for intubation and ventilator support with increasing doses and frequency of her narcotic pain meds was once again explained, this time with at bedside. It was also explained that she would be able to receive as much pain medications as frequently as she would like if she was comfort measures. Her code status was once again discussed at that time. indicated that over the last few months he has noted a significant decline and was aware of the terminal nature of her diagnosis with the significant spread. He stated that he would like to see her comfortable. iRtchie was in tears and verbalized understanding and agreement but stated that she would like to discuss this further with her sister. Later called back to pt's bedside by nursing as Ritchie had indicated that she would like to discuss things further. Upon entry into the room, and Ritchie indicated that they had contacted family and advised of the situation. Ritchie indicated that she would like to be made comfortable and be made a DNR/DNI. She noted that her pain level was increasing and she would like to get her medications as frequently as she needed. She indicated that she was aware of the risk of respiratory depression and though she is a DNR/DNI, she would like Narcan available for her use if needed. Pt was made comfort measures and her Dilaudid doses were increased in frequency to q2h. Will await further recommendations from inpatient Palliative Care. Consider a dilaudid drip if need for increased pain medication. 07/27: notified by nursing that pt was asking for med every half hour. Per pt, she would just like to know what time her next dose of medication is due. Palliative was at bedside. Pt declined Dilaudid pump/drip. Per palliative family discussion, NO MORE NARCAN use, pt fully comfort measures. 07/28: Pt transitioned to inpatient hospice care/[facility] on 07/28/2023. Started on a D ilaudid [employer] pump, can titrate up to meet pt's needs. Appreciate hospice recs. Cont. dilaudid 3 mg cont/ hr, and prn, followed by [facility] hospice Primary adenocarcinoma of lung: Mets to brain and bone: New Metastatic Lesion: Chronic Followed with Dr. Charlton, now with [facility] and trying to establish care with Dr. David for another opinion scheduled 08/17/23 Overall poor prognosis New lesion identified on face CT: 1. A 2.5 x 2.5 cm destructive lesion centered within the ramus of the right hemimandible consistent with metastatic disease. No evidence for pathologic fracture at this time. 2. Re-demonstration of the 13 mm intracranial metastatic focus within the right temporal lobe. Will involve ST for safe swallowing techniques Acute on chronic pain Outpatient regimen Dilaudid 4 mg p.o. every 4 as needed, Ativan 0.5 mg p.o. 3 times daily Fentanyl TD patch recently increased from 50 mcg to 100 mcg 07/17; then to 112 mcg as of 07/21 and 07/24 increased to 125mcg Follows with Palliative medicine as outpatient; re-involve while here Involve pain management for additional eval; Current pain regimen 6mg po q3hr mg Dilaudid and 2mg IV dilaudid q3hr for breakthrough pain Has been put on bowel regimen Continue with anxiolytic appreciate palliative and pain management assistance 07/24: Pt seen by Palliative Care once more, fentanyl patch dose increased to 125mcg. 07/25: States that pain is improved but still present, plans to follow up outpatient with oncology 07/26: Pt made comfort measures, see above discussion Comfort measures at this time Tachycardia Noted on 07/23. Pt known to be tachycardic, previously evaluated by cardiology at one prior admission Likely multifactorial in setting of cancer, uncontrolled pain and chronic ane antwon, currently worsening. Was started on metoprolol overnight. Continue to monitor. 07/25-improving 07/26- pt made comfort measures, continue current management Primary adenocarcinoma of upper lobe of right lung: Current plan is to resume outpatient therapy once stable and discharged from hospital Patient was also planning on getting a third opinion regarding chemo regimen from Dr. Daivd 07/24- per Palliative, encouraged pt to get third opinion from [facility] where she has been seen [place] 07/26- pt made comfort measures, see discussion above Pancytopenia Anemia Pt with noted worsening anemia, thrombocytopenia and leukopenia. Has occurred in the past. Holding dvt prophylaxis Consider oncology recall inpatient Per discussion with palliative on 07/24, pt to seek third opinion from [facility] rather than Dr David 07/25-transfused 1U pRBCs on 07/25 given pt's symptoms and hgb of 7.2 07/26- hgb stable Metastasis to brain: Metastatic lesions in the brain and in the bones was shown to the patient's through the computer imaging Denies any headache Intractable N/V: improved continue prn phenergan Hypomagnesemia: repleted Hypokalemia: repleted Tobacco use: Chronic Currently smoking 5 cigarettes per day Smoking cessation recommended Prescribed Ellipta, Advair; continue Albuterol PRN; continue CODE STATUS: DNR/DNI, comfort measures at this time Admission and Anticipated Discharge Date Admission Date: July 28, 2023 Subjective Pt seen in follow up, admitted to [facility] Hx of lung adenocarcinoma w/ mets Currently on [employer] dilaudid Laying in bed in NAD. No chest pain or shortness of breath. Review of Systems Review of Systems: All systems reviewed & are unremarkable except as noted in Subjective Physical Exam Physical Exam: General: WD/WN young F in No acute distress Psych: Appropriate mood and affect Neuro: Awake and alert, answers appropriately. Moves extremities. HEENT: NC/AT CV: RRR, Normal s1, s2. Resp: Breath sounds clear bilaterally, no increased effort of breathing. Abdomen: Soft, nontender Extremities: moves extremities bilaterally. Results & Data Results & Data Medications Administered Current Inpatient Medications Acetaminophen (Acetaminophen 325 Mg Tab) 650 mg PO Q6H PRN PRN Reason: Fever 37.8C or greater Stop: 08/27/23 18:04 Albuterol (Albuterol Hfa 8 Gm Inhaler) 2 puffs INH Q4H PRN PRN Reason: Shortness Of Breath Or Wheezing Stop: 08/27/23 18:24 Last Admin: 07/29/23 11:35 Dose: 2 puffs Chlorpromazine HCl (Chlorpromazine Hcl 25 Mg Tab) 25 mg PO QID PRN PRN Reason: Hiccups Stop: 08/27/23 18:24 Last Admin: 07/29/23 20:55 Dose: 25 mg Cyanocobalamin (Cyanocobalamin 1000 Mcg/Ml Vial) 1,000 mcg IM Q30D [facility] Stop: 08/28/23 08:59 Last Admin: 07/29/23 08:48 Dose: 1,000 mcg Fluticasone/Vilanterol (Fluticasone/Vilanterol 200/25mcg 14 Puffs/Inhaler) 1 puffs INH DAILY [facility] Stop: 08/28/23 08:59 Last Admin: 07/30/23 07:53 Dose: 1 puffs Folic Acid (Folic Acid 1 Mg Tab) 1 mg PO DAILY [facility] Stop: 08/28/23 08:59 Last Admin: 07/30/23 09:29 Dose: 1 mg Guaifenesin (Guaifenesin 600 Mg Tabcr) 600 mg PO Q12 [facility] Stop: 08/29/23 12:39 Hydromorphone HCl (Hydromorphone [employer] 30 Mg/30 Ml) 30 mg IV PRN PRN; Protocol PRN Reason: [employer] Pain Titration Stop: 08/11/23 18:04 Last Admin: 07/30/23 09:40 Dose: 30 mg Lorazepam 0.5 mg/ Syringe 0.5 mls @ 2 mls/min IV Q4H PRN; Protocol PRN Reason: Anxiety/Agitation Stop: 08/27/23 18:04 Last Admin: 07/30/23 14:36 Dose: 2 mls/min Sodium Chloride (Nss) 1,000 mls @ 30 mls/hr IV .Q24H [facility] Stop: 08/11/23 18:08 Last Admin: 07/29/23 20:53 Dose: 30 mls/hr Hydromorphone HCl (Dilaudid/Nss) 100 mg in 100 mls @ 3 mls/hr IV .[id number] [facility]; Protocol Stop: 08/13/23 15:44 Ibuprofen (Ibuprofen 800 Mg Tab) 800 mg PO Q8H PRN PRN Reason: Pain, Moderate Stop: 08/27/23 18:24 Last Admin: 07/29/23 14:02 Dose: 800 mg Ketorolac Tromethamine (Ketorolac 30 Mg/Ml Vial) 30 mg IV Q6H PRN PRN Reason: Pain not relieved by IBUPROFEN Stop: 08/02/23 18:28 Last Admin: 07/30/23 12:04 Dose: 30 mg Lorazepam (Lorazepam 0.5 Mg Tab) 0.5 mg PO Q4H PRN PRN Reason: Anxiety/Agitation Stop: 08/27/23 18:04 Multi-Ingredient Mouthwash/Gargle (First - Mouthwash Blm 119 Ml) 10 ml PO ACHS PRN PRN Reason: dysphagia Stop: 08/27/23 18:34 Naloxone HCl (Naloxone Hcl 0.4 Mg/1 Ml Vial/Carp) 0.1 mg IV Q5M PRN; Protocol PRN Reason: Oversedation/Resp Depression Stop: 08/11/23 18:04 Ondansetron HCl (Ondansetron Inj 2 Mg/Ml 2 Ml Vial) 4 mg IV Q4H PRN PRN Reason: Nausea &/or Vomiting Stop: 08/27/23 18:04 Last Admin: 07/29/23 08:43 Dose: 4 mg Ondansetron HCl (Ondansetron 4 Mg Od Tab) 4 mg SL Q4H PRN PRN Reason: Nausea &/or Vomiting Stop: 08/27/23 18:04 Pantoprazole Sodium (Pantoprazole 40 Mg Tab) 40 mg PO BID [facility] Stop: 08/27/23 20:59 Last Admin: 07/30/23 09:29 Dose: Not Given Promethazine HCl (Promethazine Hcl 25 Mg Tab) 25 mg PO Q6H PRN PRN Reason: n/v not relieved by Zofran Stop: 08/27/23 18:24 Last Admin: 07/29/23 09:46 Dose: 25 mg Senna/Docusate Sodium (Docusate Sodium/Senna 50/8.6mg Tab) 1 tab PO BID [facility] Stop: 08/11/23 20:59 Last Admin: 07/30/23 09:29 Dose: Not Given Umeclidinium [place] (Umeclidinium [place] 62.5mcg/Blister 7 Puffs/Inhaler) 1 puffs INH DAILY [facility] Stop: 08/28/23 08:59 Last Admin: 07/30/23 07:54 Dose: 1 puffs
[2023-07-30] MEDS: HYDROMORPHONE IV SCH (16:03)
[2023-07-30] MEDS: NSS IV SCH (16:03)
[2023-07-30] MEDS: [UNRECOGNIZED DRUG - OTHER] IV SCH (16:03)
[2023-07-30] MEDS: guaiFENesin 600 MG TABCR PO SCH (17:50)
--- NOTE | 2023-07-30 21:41 | Communication Note ---
Date of Service: July 30, 2023 Contacted by pt's RN via tiger text this evening that pt and her sister filled out new POA form in which pt "wishes to be intubated if needed until her sister from [place] is there." I contacted [facility] hospice to made them aware and clarify - they are not aware of this new form and will further clarify with the pt and their hospice physician. I also contacted Cem Hickman - from palliative medicine at [facility] who is familiar with the pt. Received call back from [facility] hospice - apparently sister from [place] is actually currently present here in [place] and they "said their goodbyes." [facility] physician is ok for now to keep her as inpt hospice and will further clarify tomorrow. Nurse Davian will be sent email about this and will be seeing the pt tomorrow. I will review the form tomorrow as I'm not present in the hospital anymore. Will meet with [facility] hospice and Cem Hickman and will clarify goals of care and further plan of care with the pt. MD Savi
--- NOTE | 2023-07-31 10:24 | Hospitalist Progress Note ---
Date of Service July 31, 2023 Assessment & Plan (1) Cancer, metastatic to bone: (2) Cancer-related breakthrough pain: (3) Metastatic adenocarcinoma: (4) Lung cancer metastatic to brain: (5) Pain from bone metastases: (6) Comfort measures only status: Plan Ms. 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 She had #2/10 radiation to her left iliac crest on with persistent pain since. Additional PMH includes chronic pancytopenia (baseline hemoglobin 10-11), history of PE ( not on anticoagulation)endometrial cancer status post surgery, prediabetes, SLE, cancer pain on narcotics, ADD/mood disorder, pseudocholinesterase deficiency, esophageal ulcer as per records, ongoing tobacco use. Follows with palliative medicine as an outpatient for symptom management. She has had 18 admissions in the last year. Pt stated that she would like to be made comfort measures on 07/26/2023 with DNR/DNI status. Transitioned to [facility]/inpatient hospice care on 07/28/2023. Comfort Measures Status: 07/26/2023: Overnight, reports that pt was asking for increasing amounts of pain medication. Currently receiving fentanyl 125mcg via patch, po Dilaudid 6mg q3h, IV Dilaudid 2mg q3h, Ativan 1mg TID for the most part, all on schedule. Reportedly asking nursing overnight to wake her up to get her scheduled medication doses as she was in so much pain. In the AM, jone discussion about her full code status and increasing need for narcotic pain medications along with benzos that could potentially terminally suppress her respiratory drive. Nursing was at bedside as well during that discussion. Pt noted that her desire to be a full code was to ensure that family members had a chance to get to her and say goodbye should she have a turn for the worse. She noted that her main goal was to spend as much time with loved ones as she could and she does not want to in the hospital. She noted she has a sister who resides in another state. The option of hospice care was brought up and she stated that she would like more information but would also like to go home with her loved ones. Case management was advised as well as her inpatient Palliative care provider of patient's desire for more information about hospice and desire to go home. Ritchie noted that her pain at that time was well controlled and she noted that she had not used the IV Dilaudid since earlier in the night. Later notified by nursing that pt was in tears with increased pain and stating that she was not able to go home with this degree of pain. On arrival at bedside, was present. Again jone discussion of her need for increasing narcotic pain medication and the desire to do no harm with her desire at that time to remain a full code. The risk of respiratory drive suppression with need for intubation and ventilator support with increasing doses and frequency of her narcotic pain meds was once again explained, this time with at bedside. It was also explained that she would be able to receive as much pain medications as frequently as she would like if she was comfort measures. Her code status was once again discussed at that time. indicated that over the last few months he has noted a significant decline and was aware of the terminal nature of her diagnosis with the significant spread. He stated that he would like to see her comfortable. Ritchie was in tears and verbalized understanding and agreement but stated that she would like to discuss this further with her sister. Later called back to pt's bedside by nursing as Ritchie had indicated that she would like to discuss things further. Upon entry into the room, and Ritchie indicated that they had contacted family and advised of the situation. Ritchie indicated that she would like to be made comfortable and be made a DNR/DNI. She noted that her pain level was increasing and she would like to get her medications as frequently as she needed. She indicated that she was aware of the risk of respiratory depression and though she is a DNR/DNI, she would like Narcan available for her use if needed. Pt was made comfort measures and her Dilaudid doses were increased in frequency to q2h. Will await further recommendations from inpatient Palliative Care. Consider a dilaudid drip if need for increased pain medication. 07/27: notified by nursing that pt was asking for med every half hour. Per pt, she would just like to know what time her next dose of medication is due. Palliative was at bedside. Pt declined Dilaudid pump/drip. Per palliative family discussion, NO MORE NARCAN use, pt fully comfort measures. 07/28: Pt transitioned to inpatient hospice care/[facility] on 07/28/2023. Started on a D ilaudid [employer] pump, can titrate up to meet pt's needs. Appreciate hospice recs. Cont. dilaudid 3 mg cont/ hr, and prn, followed by [facility] hospice Primary adenocarcinoma of lung: Mets to brain and bone: New Metastatic Lesion: Chronic Followed with Dr. Charlton, now with [facility] and trying to establish care with Dr. David for another opinion scheduled 08/17/23 Overall poor prognosis New lesion identified on face CT: 1. A 2.5 x 2.5 cm destructive lesion centered within the ramus of the right hemimandible consistent with metastatic disease. No evidence for pathologic fracture at this time. 2. Re-demonstration of the 13 mm intracranial metastatic focus within the right temporal lobe. Will involve ST for safe swallowing techniques Acute on chronic pain Outpatient regimen Dilaudid 4 mg p.o. every 4 as needed, Ativan 0.5 mg p.o. 3 times daily Fentanyl TD patch recently increased from 50 mcg to 100 mcg 07/17; then to 112 mcg as of 07/21 and 07/24 increased to 125mcg Follows with Palliative medicine as outpatient; re-involve while here Involve pain management for additional eval; Current pain regimen 6mg po q3hr mg Dilaudid and 2mg IV dilaudid q3hr for breakthrough pain Has been put on bowel regimen Continue with anxiolytic appreciate palliative and pain management assistance 07/24: Pt seen by Palliative Care once more, fentanyl patch dose increased to 125mcg. 07/25: States that pain is improved but still present, plans to follow up outpatient with oncology 07/26: Pt made comfort measures, see above discussion Comfort measures at this time Tachycardia Noted on 07/23. Pt known to be tachycardic, previously evaluated by cardiology at one prior admission Likely multifactorial in setting of cancer, uncontrolled pain and chronic ane antwon, currently worsening. Was started on metoprolol overnight. Continue to monitor. 07/25-improving 07/26- pt made comfort measures, continue current management Primary adenocarcinoma of upper lobe of right lung: Current plan is to resume outpatient therapy once stable and discharged from hospital Patient was also planning on getting a third opinion regarding chemo regimen from Dr. David 07/24- per Palliative, encouraged pt to get third opinion from [facility] where she [place] been [place] 07/26- pt made comfort measures, see discussion above Pancytopenia Anemia Pt with noted worsening anemia, thrombocytopenia and leukopenia. Has occurred in the past. Holding dvt prophylaxis Consider oncology recall inpatient Per discussion with palliative on 07/24, pt to seek third opinion from [facility] rather than Dr David 07/25-transfused 1U pRBCs on 07/25 given pt's symptoms and hgb of 7.2 07/26- hgb stable Metastasis to brain: Metastatic lesions in the brain and in the bones was shown to the patient's through the computer imaging Denies any headache Intractable N/V: improved continue prn phenergan Hypomagnesemia: repleted Hypokalemia: repleted Tobacco use: Chronic Currently smoking 5 cigarettes per day Smoking cessation recommended Prescribed Ellipta, Advair; continue Albuterol PRN; continue CODE STATUS: DNR/DNI, comfort measures at this time Admission and Anticipated Discharge Date Admission Date: July 28, 2023 Subjective Pt seen in follow up, admitted to [facility] Hx of lung adenocarcinoma w/ mets Currently on [employer] dilaudid Sitting up in bed in NAD, awake alert. No chest pain or shortness of breath. Pt's parents present at the bedside. Met with the pt and Dr. Cem Hickman (palliative) to clarify POA form that pt filled out last evening. She understands that being intubated / " put on a machine" does not work with hospice/ comfort care measures and wishes to continue with hospice as is. She wishes to change the form, will assist her with that. I have also notified [facility] hospice. Review of Systems Review of Systems: All systems reviewed & are unremarkable except as noted in Subjective Physical Exam Physical Exam: General: WD/WN young F in No acute distress Psych: Appropriate mood and affect Neuro: Awake and alert, answers appropriately. Moves extremities. HEENT: NC/AT CV: RRR, Normal s1, s2. Resp: Breath sounds clear bilaterally, no increased effort of breathing. Abdomen: Soft, nontender Extremities: moves extremities bilaterally. Results & Data Results & Data Vital Signs (Past 12 Hours) Vital Signs O2 Del Method 07/31/23 09:29 Room Air Medications Administered Current Inpatient Medications Acetaminophen (Acetaminophen 325 Mg Tab) 650 mg PO Q6H PRN PRN Reason: Fever 37.8C or greater Stop: 08/27/23 18:04 Albuterol (Albuterol Hfa 8 Gm Inhaler) 2 puffs INH Q4H PRN PRN Reason: Shortness Of Breath Or Wheezing Stop: 08/27/23 18:24 Last Admin: 07/29/23 11:35 Dose: 2 puffs Chlorpromazine HCl (Chlorpromazine Hcl 25 Mg Tab) 25 mg PO QID PRN PRN Reason: Hiccups Stop: 08/27/23 18:24 Last Admin: 07/29/23 20:55 Dose: 25 mg Cyanocobalamin (Cyanocobalamin 1000 Mcg/Ml Vial) 1,000 mcg IM Q30D [facility] Stop: 08/28/23 08:59 Last Admin: 07/29/23 08:48 Dose: 1,000 mcg Fluticasone/Vilanterol (Fluticasone/Vilanterol 200/25mcg 14 Puffs/Inhaler) 1 puffs INH DAILY [facility] Stop: 08/28/23 08:59 Last Admin: 07/31/23 08:21 Dose: 1 puffs Folic Acid (Folic Acid 1 Mg Tab) 1 mg PO DAILY [facility] Stop: 08/28/23 08:59 Last Admin: 07/31/23 08:21 Dose: 1 mg Guaifenesin (Guaifenesin 600 Mg Tabcr) 600 mg PO Q12 [facility] Stop: 08/29/23 12:39 Last Admin: 07/31/23 08:21 Dose: 600 mg Hydromorphone HCl (Hydromorphone Medical Services Coordinator 30 Mg/30 Ml) 30 mg IV PRN PRN; Protocol PRN Reason: [employer] Pain Titration Stop: 08/11/23 18:04 Last Admin: 07/30/23 17:01 Dose: 30 mg Sodium Chloride (Nss) 1,000 mls @ 30 mls/hr IV .Q24H [facility] Stop: 08/11/23 18:08 Last Admin: 07/31/23 02:55 Dose: 30 mls/hr Hydromorphone HCl (Dilaudid/Nss) 100 mg in 100 mls @ 3 mls/hr IV .[id number] [facility]; Protocol Stop: 08/13/23 15:44 Last Titration: 07/31/23 07:11 Dose: 3 mg/hr, 3 mls/hr Lorazepam 0.75 mg/ Syringe 0.75 mls @ 2 mls/min IV Q4H PRN; Protocol PRN Reason: Anxiety/Agitation,nausea,spasm Stop: 08/27/23 10:29 Ibuprofen (Ibuprofen 800 Mg Tab) 800 mg PO Q8H PRN PRN Reason: Pain, Moderate Stop: 08/27/23 18:24 Last Admin: 07/31/23 10:14 Dose: 800 mg Ketorolac Tromethamine (Ketorolac 30 Mg/Ml Vial) 30 mg IV Q6H PRN PRN Reason: Pain not relieved by IBUPROFEN Stop: 08/02/23 18:28 Last Admin: 07/31/23 08:55 Dose: 30 mg Multi-Ingredient Mouthwash/Gargle (First - Mouthwash Blm 119 Ml) 10 ml PO ACHS PRN PRN Reason: dysphagia Stop: 08/27/23 18:34 Naloxone HCl (Naloxone Hcl 0.4 Mg/1 Ml Vial/Carp) 0.1 mg IV Q5M PRN; Protocol PRN Reason: Oversedation/Resp Depression Stop: 08/11/23 18:04 Ondansetron HCl (Ondansetron Inj 2 Mg/Ml 2 Ml Vial) 4 mg IV Q4H PRN PRN Reason: Nausea &/or Vomiting Stop: 08/27/23 18:04 Last Admin: 07/29/23 08:43 Dose: 4 mg Ondansetron HCl (Ondansetron 4 Mg Od Tab) 4 mg SL Q4H PRN PRN Reason: Nausea &/or Vomiting Stop: 08/27/23 18:04 Pantoprazole Sodium (Pantoprazole 40 Mg Tab) 40 mg PO BID [facility] Stop: 08/27/23 20:59 Last Admin: 07/31/23 08:21 Dose: 40 mg Promethazine HCl (Promethazine Hcl 25 Mg Tab) 25 mg PO Q6H PRN PRN Reason: n/v not relieved by Zofran Stop: 08/27/23 18:24 Last Admin: 07/29/23 09:46 Dose: 25 mg Senna/Docusate Sodium (Docusate Sodium/Senna 50/8.6mg Tab) 1 tab PO BID [facility] Stop: 08/11/23 20:59 Last Admin: 07/31/23 08:21 Dose: 1 tab Umeclidinium [place] (Umeclidinium [place] 62.5mcg/Blister 7 Puffs/Inhaler) 1 puffs INH DAILY [facility] Stop: 08/28/23 08:59 Last Admin: 07/31/23 08:21 Dose: 1 puffs
[2023-07-31] MEDS: LORAZEPAM IV PRN (10:40)
--- NOTE | 2023-07-31 12:11 | Palliative Care Consultation ---
Date of Consultation July 31, 2023 Assessment & Plan (1) Cancer related pain: Pt remains on Dilaudid AMBULATORY SERVICE REPRESENTATIVE 3mg per hour with 1mg AMBULATORY SERVICE REPRESENTATIVE q15min, pain is not controlled and she is using most AMBULATORY SERVICE REPRESENTATIVE doses. She reports pain in jaw, belly, back and hip through side of chest wall remains 8-9 Will increase to Dilaudid 3mg per hour continuous with 1.3mg AMBULATORY SERVICE REPRESENTATIVE q15min bolus prn (2) Pain from bone metastases: (3) Therapeutic opioid induced constipation: (4) Esophageal pain: (5) Dysphagia: Dysphagia type: unspecified Qualified Code(s): R13.10 - Dysphagia, unspecified (6) Advanced care planning/counseling discussion: Met with Ritchie face to face at bedside for 60min along with Dr Hou I brought her POA forms to review with her She elected comfort care, no CPR, no URIEL, no organ donation She designated her sister POA then and sister from [place] as alternates She added that she wants her wishes followed but if needed she should be intubated to allow sister from [place] time to get here We spoke about the philosophy of hospice: plan of care that emphasizes comfort and dignity for people coping with terminal illness. The hospice philosophy accepts as the final stage of life; it affirms life, but does not try to hasten or postpone , nor cure an underlying disease. Hospice teams do not intubate patients nor can they accommodate IV opioid infusion for comfort but then have to monitor for intubation. I advised that as we have previously spoken about, hospice is about caring for the whole person, not just the disease - they are addressing her physical, emotional, social, and spiritual needs, focusing on her and the family. Hospice helps achieve the following four goals: (a)to relieve the pain and suffering of the terminally ill; (b) to make possible a "good" ; (c) to help the family; (d) to assist in the search for meaning. Ritchie says she wants her family to be able to come see her to say good bye before she dies. We spoke about the dying process and changes people move through. Hospice knows what to look for and provides a regular interface with family-they can notify family when active dying transitions are happening and when other family should be notified if they want to visit. Advised there is no "one way to " and everyone has their unique journey to /their final chapter is unique to them. While I hope her family has time to come be with her during those final days/hours, there really is no way to guarantee it. Sometimes patients in their sleep, while others may have more time and demonstrate signs is approaching. Putting her on life support would not be aligned with an EOL plan of care. I told Ritchie we are here to support her wishes and needs. If she wants to be intubated then would revoke GIP hospice & move her to a routine hospital plan of care with SNF dc. She will not be able to have an opioid infusion at home of SNF but we can resume her TDF and oral meds regimen to allow pain relief but not risk more sedation. We cannot offer IV opioid AMBULATORY SERVICE REPRESENTATIVE + comfort care + intubation. There is not an aligned plan of care with that combination but if she wants intubation which is certainly within her autonomous rights, then we can move her over to more routine care and know that our overall goal is comfort to the best of our abilities without risking resp changes and when she starts to have more resp failure from her lung cancer at EOL we can proceed with intubation, ICU admission and await family. I advised her she would not be awake through that as most patients who require vent are sedated. Family would then have to make decision re timing for compassionate extubation which can be difficult for them to bear witness to, however, it can be done if this is what she wants. Ritchie considered these options. Her Mom and Dad also joined us. her mother stated she knew hospice was best plan for Ritchie at this junction and being on machines was not going to make anything better. Ritchie agreed she wants to stay on hospice. We spoke about how hospice can work to assure early notice to family if things are changing so sister can drive from [place]. Ritchie elected to remain on hospice.She does not want intubation.She hopes h ospice updates will allow family to be there but also has better understanding now about how unpredictable this may be and no guarantees can be given. She elects comfort care, GIP and hospice dc home once housing is approved. A new POA form was completed, signed and witnessed by her parents. The signed original was given to [facility] for scanning into the record. (7) Counseling regarding goals of care: (8) Palliative care by specialist: Met with pt/family. Provided overview of Palliative Medicine, a subspecialty that provides specialized medical care for people living with a serious illness by offering a focus on quality of life. Palliative Medicine is often conflated with hospice: I advised patient/family that Palliative and hospice can be partners but we are not the same. It is important to understand the difference so that we may be informed, and not afraid. Palliative Medicine works to improve QOL through reduction of symptom burden/more control over their illness, for both the patient and family. Palliative medicine clinicians are board certified, specially-trained and another member of the patient's medical care team. We often provide an extra layer of support because our care is based on the needs of the patient, not the prognosis; as such, it's appropriate at any age/advancing stage of a serious illness and can be provided along with curative treatment. Palliative Medicine clinicians are also trained in advanced communication methodologies, to facilitate complex discussions about advanced illness planning, which are needed to help assure that the treatment choices match the patient's goals, aka delivering Goal Concordant care. Finally, we discussed that hospice is a visiting nurse service that focuses on care delivered at the very end of life for patients with terminal illness, with life expectancy less than 6 month. (9) Primary adenocarcinoma of upper lobe of right lung: (10) Metastasis to brain: (11) Metastatic adenocarcinoma to bone: History of Present Illness Reason for Consultation: GIP admit, please resume care Attending Physician: Cali Hou MD History of Present Illness From my prior consult: Davian is a 43-year-old female admitted with severe intractable pain due to metastatic primary adenocarcinoma of the lung with mets to brain, liver, hip and now with a new mass discovered in her mandible. She is well-known to the palliative medicine inpatient service at [facility], please see my previous notes for all details. Ritchie reports that the worst of her pain remains in her left hip and now also in her right jaw with nu mbness to the lower lip and up towards her teeth. She complains of an intermittent but persisting left anterior chest wall pain. She remains on ATC oxygen. She continues to intermittently smoke but notes that she does this without her oxygen on. She also uses medical marijuana via vape pen and ibuprofen 800 mg 3 times a day along with TDF 100mcg q72h + Dilaudid 4mg po q4h prn BTP This is her 18th admission in the past 1 year. During my July 09, 2023 inpatient consult, we increased her transdermal fentanyl to 75 mcg from the prior 50 mcg dose. Will continue Dilaudid 4 mg p.o. every 4 hours as needed for breakthrough pain management. She had an outpatient follow-up with Dr. Dial at [facility] palliative medicine, and her fentanyl was increased recently to 100 mcg every 72 hours. She presents to the emergency room 07/18/23 with very severe and intractable cancer-related pain. She reports that her hip pain seemed to intensify following her most recent radiation treatment. She also reported persisting nausea and vomiting and was concerned about dehydration. During this admission she elected to transition to comfort care with addition of GIP her sisters and parents have been visit yesterday she completed a POA document with her sister and nursing noted she elected to be intubated "to allow my sister from [facility] to get here and say goodbye" primary team requesting assistance to obtain clarity on the goals of care hospice understandably does not want to keep pt on GIP if she desires intubation Allergies Allergy/AdvReac Type Severity Reaction Status Date / Time levofloxacin [From Levaquin] Allergy Severe THROAT Verified 07/08/23 19:23 SWELLS SHUT, ITCHY--RASH PER GMG Penicillins Allergy Severe Anaphylaxis Verified 07/08/23 19:23 clindamycin Allergy Intermediate CAUSED A Verified 07/08/23 19:23 YEAST INFECTION X 6 MONTHS povidone-iodine Allergy Intermediate Rash Verified 07/08/23 19:23 [From Betadine] silver Allergy Intermediate Rash Verified 07/08/23 19:23 [From Tegaderm AG Mesh] bupropion [From Wellbutrin] AdvReac Severe suicidal Verified 07/08/23 19:23 ideation duloxetine AdvReac Severe suicidal Verified 07/08/23 19:23 ideations sulfamethoxazole AdvReac Mild YEAST Verified 07/08/23 19:23 [From Bactrim] INFECTION trimethoprim [From Bactrim] AdvReac Mild YEAST Verified 07/08/23 19:23 INFECTION ANESTHESIA AdvReac Severe PER Uncoded 07/08/23 19:23 GMG--PSEUDOCHLOINESTERASE---FLAT LINES PLASTIC AdvReac Severe SKIN PEELS Uncoded 07/08/23 19:23 Home Medications Medication Instructions Recorded Confirmed Type albuterol sulfate 90 mcg/actuation 2 puff inhalation Q4H PRN 03/28/23 07/28/23 History aerosol inhaler (Ventolin HFA) Shortness Of Breath Or Wheezing chlorpromazine 25 mg tablet 25 mg PO QID PRN Hiccups 03/28/23 07/28/23 History cyanocobalamin (vitamin B-12) 1,000 mcg IM MONTHLY 03/28/23 07/28/23 History 1,000 mcg/mL injection solution fluticasone propionate 230 2 puff inhalation BID 03/28/23 07/28/23 History mcg-salmeterol 21 mcg/actuation HFA inhaler (Advair HFA) folic acid 1 mg tablet 1 mg PO DAILY 03/28/23 07/28/23 History lorazepam 0.5 mg tablet 0.5 mg PO TID PRN Anxiety 03/28/23 07/28/23 History ondansetron HCl 8 mg tablet 8 mg PO TID PRN Nausea And Vomiting 03/28/23 07/28/23 History umeclidinium 62.5 mcg/actuation 1 inh inhalation DAILY 03/28/23 07/28/23 History blister powder for inhalation (Incruse Ellipta) Magic Mouthwash 300 mL mouthwash 10 ml mucous membrane ACHS PRN 05/28/23 07/28/23 History dysphagiea pantoprazole 40 mg tablet,delayed 40 mg PO BID 07/02/23 07/28/23 History release dexamethasone 4 mg tablet 4 mg PO UD 07/18/23 07/28/23 History ibuprofen 800 mg tablet 800 mg PO Q8H PRN Pain, Moderate 07/18/23 07/28/23 History promethazine 25 mg tablet 25 mg PO Q6H PRN n/v 07/18/23 07/28/23 History fentanyl 50 mcg/hr transdermal See Rx Instructions .Route 07/26/23 07/28/23 Rx patch .COMPLEX #2 ea hydromorphone 2 mg tablet 6 mg (3 x 2 mg) PO Q4H PRN pain 07/26/23 07/28/23 Rx (Dilaudid) #36 tabs magnesium chloride 64 mg 64 mg PO BID #60 tabs 07/26/23 07/28/23 Rx (magnesium chloride) tablet,delayed release (Mag 64) potassium chloride 20 mEq 20 meq PO BID #60 tabs 07/26/23 07/28/23 Rx tablet,extended release(part/cryst) Patient History Medical History (Updated 07/31/23 @ 12:54 by Marissa Hickman DNP) Cancer, metastatic to bone Pneumonia Fever Chest fullness Dysphasia Pneumonia Chest pain Community acquired pneumonia Chronic low back pain Chronic cough Pseudocholinesterase deficiency Encounter for pre-operative examination Pancytopenia Primary adenocarcinoma of upper lobe of right lung (10/03/22) Endometriosis of the uterus, unspecified Asthma ADHD Tobacco abuse Systemic lupus erythematosus Surgical History H/O right wrist surgery H/O: hysterectomy History of cholecystectomy Hx of appendectomy H/O tubal ligation S/P bronchoscopy Family History Mother Cancer Breast Grandmother (Maternal) Cancer Lung Social History Smoking Status: Current every day smoker Tobacco Type: Cigarettes Cigarettes Per Day: 1 ppd; Second Hand Exposure: Yes; Do You Dip or Chew Tobacco: No; Tobacco Cessation Education Requested by Patient: No Hx Alcohol Use: No Hx Substance Use: No Preferred Language: Yoruba Communication Ability: Effective Visual Impairment: No Limitations Hearing Ability: Normal Grill Attendant Required: No Beliefs That Will Affect Care: None marital status: Single Current Living Situation: Spouse Current Living Situation Comment: engaged current occupational status: unemployed 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 Other Information That Helps Us Care for You: No Feels Safe at Home: Yes Safety Concerns: Feels Safe At This Time Diet: regular during the past year weight has: remained stable Assistive Devices: Hospital Bed and Oxygen - Continuous Assistive Devices Comment: oxygen prn Review of Systems Review of Systems: All systems reviewed & are unremarkable except as noted in Subjective Physical Exam Constitutional: well nourished, + ill appearing and cooperative Eyes: PERRL, conjunctivae normal, anicteric sclerae ENMT: Mouth: + dry oral mucous membranes, + TMJ tender, + dental caries, + poor dentition and + chipped teeth Throat: uvula midline Neck: normal visual inspection and trachea midline Respiratory: normal respiratory effort, + cough, able to speak in complete sentences and symmetric chest movement Cardiovascular: RRR, no murmur, no edema Gastrointestinal (Abdomen): normal bowel sounds, soft, nontender, no hepatosplenomegaly Musculoskeletal: generalized weakness strength equal/symmetric but diminished Skin: pale, warm Neurologic: moves all extremities and awake Motor/Sensory: + tremor Gait: + staggering gait and + wide-based gait Psychiatric: Orientation: alert, oriented x 3 and cooperative Apperance: + disheveled Eye Contact: good eye contact Speech: normal rate/rhythm/volume of speech Affect: euthymic affect and + anxious affect Results & Data Vital Signs (Past 12 Hours) Vital Signs O2 Del Method 07/31/23 09:29 Room Air PG Care Time/CCT Total # of Minutes Spent Total Time Spent: 120 Total Time Spent with Patient: Total time spent is greater than 50% in coordination of care (as documented) at patient's floor/unit and/or counseling patient: I [id number] minutes overall addressing this case: 10 min in medical data review/discussion with referring prov ider(s) and/or preparation for the visit 25 min in direct interaction with the patient/exam 60 min in Advance Care Planning/Goals of Care discussions as detailed above in note (must be >16min) 15 min in subsequent review and synthesis of assessment and plan 20 min communicating with other providers regarding the patient's case: Advanced Care Planning 41113 Advanced Care Planning 30 Min 94440 Advanced Care Planning Additional 30 [place] [address] IN/OBS CONSULT LVL 5,80M Patient Type New History Comprehensive Exam Comprehensive Medical Decision Making High Complexity Diagnoses Cancer related pain G89.3 Pain from bone metastases G89.3; C79.51 Therapeutic opioid induced constipation K59.03; T40.2X5A Esophageal pain K22.89 Dysphagia, unspecified type R13.10 Dysphagia type: unspecified Advanced care planning/counseling discussion Z71.89 Counseling regarding goals of care Z71.89 Palliative care by specialist Z51.5 Primary adenocarcinoma of upper lobe of right lung C34.11 Metastasis to brain C79.31 Metastatic adenocarcinoma to bone C79.51 Additional Codes Advanced Care Planning - 51404 Advanced Care Planning 30 Min: 97505 Advanced Care Planning 30 Min ([id number]) Advanced Care Planning - 33741 Advanced Care Planning Additional 30 Min: 98020 Advanced Care Planning Additional 30 Min ([id number])
--- NOTE | 2023-08-01 07:56 | Hospitalist Progress Note ---
Date of Service August 01, 2023 Assessment & Plan (1) Cancer, metastatic to bone: (2) Cancer-related breakthrough pain: (3) Metastatic adenocarcinoma: (4) Lung cancer metastatic to brain: (5) Pain from bone metastases: (6) Comfort measures only status: Plan Ms. 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 She had #2/10 radiation to her left iliac crest on with persistent pain since. Additional PMH includes chronic pancytopenia (baseline hemoglobin 10-11), history of PE ( not on anticoagulation)endometrial cancer status post surgery, prediabetes, SLE, cancer pain on narcotics, ADD/mood disorder, pseudocholinesterase deficiency, esophageal ulcer as per records, ongoing tobacco use. Follows with palliative medicine as an outpatient for symptom management. She has had 18 admissions in the last year. Pt stated that she would like to be made comfort measures on 07/26/2023 with DNR/DNI status. Transitioned to [facility]/inpatient hospice care on 07/28/2023. Comfort Measures Status: 07/26/2023: Overnight, reports that pt was asking for increasing amounts of pain medication. Currently receiving fentanyl 125mcg via patch, po Dilaudid 6mg q3h, IV Dilaudid 2mg q3h, Ativan 1mg TID for the most part, all on schedule. Reportedly asking nursing overnight to wake her up to get her scheduled medication doses as she was in so much pain. In the AM, jone discussion about her full code status and increasing need for narcotic pain medications along with benzos that could potentially terminally suppress her respiratory drive. Nursing was at bedside as well during that discussion. Pt noted that her desire to be a full code was to ensure that family members had a chance to get to her and say goodbye should she have a turn for the worse. She noted that her main goal was to spend as much time with loved ones as she could and she does not want to in the hospital. She noted she has a sister who resides in another state. The option of hospice care was brought up and she stated that she would like more information but would also like to go home with her loved ones. Case management was advised as well as her inpatient Palliative care provider of patient's desire for more information about hospice and desire to go home. Ritchie noted that her pain at that time was well controlled and she noted that she had not used the IV Dilaudid since earlier in the night. Later notified by nursing that pt was in tears with increased pain and stating that she was not able to go home with this degree of pain. On arrival at bedside, was present. Again jone discussion of her need for increasing narcotic pain medication and the desire to do no harm with her desire at that time to remain a full code. The risk of respiratory drive suppression with need for intubation and ventilator support with increasing doses and frequency of her narcotic pain meds was once again explained, this time with at bedside. It was also explained that she would be able to receive as much pain medications as frequently as she would like if she was comfort measures. Her code status was once again discussed at that time. indicated that over the last few months he has noted a significant decline and was aware of the terminal nature of her diagnosis with the significant spread. He stated that he would like to see her comfortable. Ritchie was in tears and verbalized understanding and agreement but stated that she would like to discuss this further with her sister. Later called back to pt's bedside by nursing as Ritchie had indicated that she would like to discuss things further. Upon entry into the room, and Ritchie indicated that they had contacted family and advised of the situation. Ritchie indicated that she would like to be made comfortable and be made a DNR/DNI. She noted that her pain level was increasing and she would like to get her medications as frequently as she needed. She indicated that she was aware of the risk of respiratory depression and though she is a DNR/DNI, she would like Narcan available for her use if needed. Pt was made comfort measures and her Dilaudid doses were increased in frequency to q2h. Will await further recommendations from inpatient Palliative Care. Consider a dilaudid drip if need for increased pain medication. 07/27: notified by nursing that pt was asking for med every half hour. Per pt, she would just like to know what time her next dose of medication is due. Palliative was at bedside. Pt declined Dilaudid pump/drip. Per palliative family discussion, NO MORE NARCAN use, pt fully comfort measures. 07/28: Pt transitioned to inpatient hospice care/[facility] on 07/28/2023. Started on a D ilaudid FUSE COILER pump, can titrate up to meet pt's needs. Appreciate hospice recs. Cont. dilaudid 3 mg cont/ hr, and prn as ordered, followed by [facility] hospice and Dr. Hickman (palliative). Primary adenocarcinoma of lung: Mets to brain and bone: New Metastatic Lesion: Chronic Followed with Dr. Charlton, now with [facility] and trying to establish care with Dr. David for another opinion scheduled 08/17/23 Overall poor prognosis New lesion identified on face CT: 1. A 2.5 x 2.5 cm destructive lesion centered within the ramus of the right hemimandible consistent with metastatic disease. No evidence for pathologic fracture at this time. 2. Re-demonstration of the 13 mm intracranial metastatic focus within the right temporal lobe. Will involve ST for safe swallowing techniques Acute on chronic pain Outpatient regimen Dilaudid 4 mg p.o. every 4 as needed, Ativan 0.5 mg p.o. 3 times daily Fentanyl TD patch recently increased from 50 mcg to 100 mcg 07/17; then to 112 mc g as of 07/21 and 07/24 increased to 125mcg Follows with Palliative medicine as outpatient; re-involve while here Involve pain management for additional eval; Current pain regimen 6mg po q3hr mg Dilaudid and 2mg IV dilaudid q3hr for breakthrough pain Has been put on bowel regimen Continue with anxiolytic appreciate palliative and pain management assistance 07/24: Pt seen by Palliative Care once more, fentanyl patch dose increased to 125mcg. 07/25: States that pain is improved but still present, plans to follow up outpatient with oncology 07/26: Pt made comfort measures, see above discussion Comfort measures at this time Tachycardia Noted on 07/23. Pt known to be tachycardic, previously evaluated by cardiology at one prior admission Likely multifactorial in setting of cancer, uncontrolled pain and chronic anemia, currently worsening. Was started on metoprolol overnight. Continue to monitor. 07/25-improving 07/26- pt made comfort measures, continue current management Primary adenocarcinoma of upper lobe of right lung: Current plan is to resume outpatient therapy once stable and discharged from hospital Patient was also planning on getting a third opinion regarding chemo regimen from Dr. David 07/24- per Palliative, encouraged pt to get third opinion from [facility] where she has been [place] 1/28- pt made comfort measures, see discussion above Pancytopenia Anemia Pt with noted worsening anemia, thrombocytopenia and leukopenia. Has occurred in the past. Holding dvt prophylaxis Consider oncology recall inpatient Per discussion with palliative on 07/24, pt to seek third opinion from [facility] rather than Dr David 07/25-transfused 1U pRBCs on 07/25 given pt's symptoms and hgb of 7.2 07/26- hgb stable Metastasis to brain: Metastatic lesions in the brain and in the bones was shown to the patient's through the computer imaging Denies any headache Intractable N/V: improved continue prn phenergan Hypomagnesemia: repleted Hypokalemia: repleted Tobacco use: Chronic Currently smoking 5 cigarettes per day Smoking cessation recommended Prescribed Ellipta, Advair; continue Albuterol PRN; continue CODE STATUS: DNR/DNI, comfort measures at this time Admission and Anticipated Discharge Date Admission Date: July 28, 2023 Subjective Pt seen in follow up, admitted to [facility] Hx of lung adenocarcinoma w/ mets Currently on FUSE COILER dilaudid Sitting up in bed in NAD No chest pain or shortness of breath. Yesterday met with the pt and Dr. Cem Hickman (palliative) to clarify POA form that pt filled out previous evening. She understands that being intubated / " put on a machine" does not work with hospice/ comfort care measures and wishes to continue with hospice as is. She wished to change the form, we assisted her with that. I have also notified [facility] hospice. Review of Systems Review of Systems: All systems reviewed & are unremarkable except as noted in Subjective Physical Exam Physical Exam: General: WD/WN young F in No acute distress Psych: Appropriate mood and affect Neuro: Awake and alert, answers appropriately. Moves extremities. HEENT: NC/AT CV: RRR, Normal s1, s2. Resp: no increased effort of breathing. Abdomen: Soft, nontender Extremities: moves extremities bilaterally. Results & Data Results & Data Vital Signs (Past 12 Hours) Vital Signs O2 Del Method 07/31/23 22:15 Room Air Medications Administered Current Inpatient Medications Acetaminophen (Acetaminophen 325 Mg Tab) 650 mg PO Q6H PRN PRN Reason: Fever 37.8C or greater Stop: 08/27/23 18:04 Albuterol (Albuterol Hfa 8 Gm Inhaler) 2 puffs INH Q4H PRN PRN Reason: Shortness Of Breath Or Wheezing Stop: 08/27/23 18:24 Last Admin: 07/31/23 14:09 Dose: 2 puffs Chlorpromazine HCl (Chlorpromazine Hcl 25 Mg Tab) 25 mg PO QID PRN PRN Reason: Hiccups Stop: 08/27/23 18:24 Last Admin: 07/29/23 20:55 Dose: 25 mg Cyanocobalamin (Cyanocobalamin 1000 Mcg/Ml Vial) 1,000 mcg IM Q30D [facility] Stop: 08/28/23 08:59 Last Admin: 07/29/23 08:48 Dose: 1,000 mcg Fluticasone/Vilanterol (Fluticasone/Vilanterol 200/25mcg 14 Puffs/Inhaler) 1 puffs INH DAILY [facility] Stop: 08/28/23 08:59 Last Admin: 07/31/23 08:21 Dose: 1 puffs Folic Acid (Folic Acid 1 Mg Tab) 1 mg PO DAILY [facility] Stop: 08/28/23 08:59 Last Admin: 07/31/23 08:21 Dose: 1 mg Guaifenesin (Guaifenesin 600 Mg Tabcr) 600 mg PO Q12 [facility] Stop: 08/29/23 12:39 Last Admin: 07/31/23 21:08 Dose: 600 mg Hydromorphone HCl (Hydromorphone Single Needle Operator 30 Mg/30 Ml) 30 mg IV PRN PRN; Protocol PRN Reason: FUSE COILER Pain Titration Stop: 08/11/23 18:04 Last Admin: 07/31/23 22:28 Dose: 30 mg Sodium Chloride (Nss) 1,000 mls @ 30 mls/hr IV .Q24H [facility] Stop: 08/11/23 18:08 Last Admin: 07/31/23 17:36 Dose: 30 mls/hr Hydromorphone HCl (Dilaudid/Nss) 100 mg in 100 mls @ 3 mls/hr IV .[id number] [facility]; Protocol Stop: 08/13/23 15:44 Last Titration: 08/01/23 06:59 Dose: 3 mg/hr, 3 mls/hr Lorazepam 0.75 mg/ Syringe 0.75 mls @ 2 mls/min IV Q4H PRN; Protocol PRN Reason: Anxiety/Agitation,nausea,spasm Stop: 08/27/23 10:29 Last Admin: 08/01/23 05:50 Dose: 2 mls/min Ibuprofen (Ibuprofen 800 Mg Tab) 800 mg PO Q8H PRN PRN Reason: Pain, Moderate Stop: 08/27/23 18:24 Last Admin: 07/31/23 18:13 Dose: 800 mg Ketorolac Tromethamine (Ketorolac 30 Mg/Ml Vial) 30 mg IV Q6H PRN PRN Reason: Pain not relieved by IBUPROFEN Stop: 08/02/23 18:28 Last Admin: 08/01/23 05:53 Dose: 30 mg Multi-Ingredient Mouthwash/Gargle (First - Mouthwash Blm 119 Ml) 10 ml PO ACHS PRN PRN Reason: dysphagia Stop: 08/27/23 18:34 Naloxone HCl (Naloxone Hcl 0.4 Mg/1 Ml Vial/Carp) 0.1 mg IV Q5M PRN; Protocol PRN Reason: Oversedation/Resp Depression Stop: 08/11/23 18:04 Ondansetron HCl (Ondansetron Inj 2 Mg/Ml 2 Ml Vial) 4 mg IV Q4H PRN PRN Reason: Nausea &/or Vomiting Stop: 08/27/23 18:04 Last Admin: 08/01/23 05:50 Dose: 4 mg Ondansetron HCl (Ondansetron 4 Mg Od Tab) 4 mg SL Q4H PRN PRN Reason: Nausea &/or Vomiting Stop: 08/27/23 18:04 Pantoprazole Sodium (Pantoprazole 40 Mg Tab) 40 mg PO BID [facility] Stop: 08/27/23 20:59 Last Admin: 07/31/23 21:08 Dose: 40 mg Promethazine HCl (Promethazine Hcl 25 Mg Tab) 25 mg PO Q6H PRN PRN Reason: n/v not relieved by Zofran Stop: 08/27/23 18:24 Last Admin: 07/29/23 09:46 Dose: 25 mg Senna/Docusate Sodium (Docusate Sodium/Senna 50/8.6mg Tab) 1 tab PO BID [facility] Stop: 08/11/23 20:59 Last Admin: 07/31/23 21:08 Dose: 1 tab Umeclidinium [place] (Umeclidinium [place] 62.5mcg/Blister 7 Puffs/Inhaler) 1 puffs INH DAILY [facility] Stop: 08/28/23 08:59 Last Admin: 07/31/23 08:21 Dose: 1 puffs
--- NOTE | 2023-08-02 07:30 | Hospitalist Progress Note ---
Date of Service August 02, 2023 Assessment & Plan (1) Cancer, metastatic to bone: (2) Cancer-related breakthrough pain: (3) Metastatic adenocarcinoma: (4) Lung cancer metastatic to brain: (5) Pain from bone metastases: (6) Comfort measures only status: Plan Ms. 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 She had #2/10 radiation to her left iliac crest on with persistent pain since. Additional PMH includes chronic pancytopenia (baseline hemoglobin 10-11), history of PE ( not on anticoagulation)endometrial cancer status post surgery, prediabetes, SLE, cancer pain on narcotics, ADD/mood disorder, pseudocholinesterase deficiency, esophageal ulcer as per records, ongoing tobacco use. Follows with palliative medicine as an outpatient for symptom management. She has had 18 admissions in the last year. Pt stated that she would like to be made comfort measures on 07/26/2023 with DNR/DNI status. Transitioned to [facility]/inpatient hospice care on 07/28/2023. Comfort Measures Status: 07/26/2023: Overnight, reports that pt was asking for increasing amounts of pain medication. Currently receiving fentanyl 125mcg via patch, po Dilaudid 6mg q3h, IV Dilaudid 2mg q3h, Ativan 1mg TID for the most part, all on schedule. Reportedly asking nursing overnight to wake her up to get her scheduled medication doses as she was in so much pain. In the AM, jone discussion about her full code status and increasing need for narcotic pain medications along with benzos that could potentially terminally suppress her respiratory drive. Nursing was at bedside as well during that discussion. Pt noted that her desire to be a full code was to ensure that family members had a chance to get to her and say goodbye should she have a turn for the worse. She noted that her main goal was to spend as much time with loved ones as she could and she does not want to in the hospital. She noted she has a sister who resides in another state. The option of hospice care was brought up and she stated that she would like more information but would also like to go home with her loved ones. Case management was advised as well as her inpatient Palliative care provider of patient's desire for more information about hospice and desire to go home. Ritchie noted that her pain at that time was well controlled and she noted that she had not used the IV Dilaudid since earlier in the night. Later notified by nursing that pt was in tears with increased pain and stating that she was not able to go home with this degree of pain. On arrival at bedside, was present. Again jone discussion of her need for increasing narcotic pain medication and the desire to do no harm with her desire at that time to remain a full code. The risk of respiratory drive suppression with need for intubation and ventilator support with increasing doses and frequency of her narcotic pain meds was once again explained, this time with at bedside. It was also explained that she would be able to receive as much pain medications as frequently as she would like if she was comfort measures. Her code status was once again discussed at that time. indicated that over the last few months he has noted a significant decline and was aware of the terminal nature of her diagnosis with the significant spread. He stated that he would like to see her comfortable. Ritchie was in tears and verbalized understanding and agreement but stated that she would like to discuss this further with her sister. Later called back to pt's bedside by nursing as Ritchie had indicated that she would like to discuss things further. Upon entry into the room, and Ritchie indicated that they had contacted family and advised of the situation. Ritchie indicated that she would like to be made comfortable and be made a DNR/DNI. She noted that her pain level was increasing and she would like to get her medications as frequently as she needed. She indicated that she was aware of the risk of respiratory depression and though she is a DNR/DNI, she would like Narcan available for her use if needed. Pt was made comfort measures and her Dilaudid doses were increased in frequency to q2h. Will await further recommendations from inpatient Palliative Care. Consider a dilaudid drip if need for increased pain medication. 07/27: notified by nursing that pt was asking for med every half hour. Per pt, she would just like to know what time her next dose of medication is due. Palliative was at bedside. Pt declined Dilaudid pump/drip. Per palliative family discussion, NO MORE NARCAN use, pt fully comfort measures. 07/28: Pt transitioned to inpatient hospice care/[facility] on 07/28/2023. Started on a D ilaudid STONE ENGRAVER pump, can titrate up to meet pt's needs. Appreciate hospice recs. Cont. dilaudid 3 mg cont/ hr, and prn as ordered, followed by [facility] hospice and Dr. Hickman (palliative). Primary adenocarcinoma of lung: Mets to brain and bone: New Metastatic Lesion: Chronic Followed with Dr. Charlton, now with [facility] and trying to establish care with Dr. David for another opinion scheduled 08/17/23 Overall poor prognosis New lesion identified on face CT: 1. A 2.5 x 2.5 cm destructive lesion centered within the ramus of the right hemimandible consistent with metastatic disease. No evidence for pathologic fracture at this time. 2. Re-demonstration of the 13 mm intracranial metastatic focus within the right temporal lobe. Will involve ST for safe swallowing techniques Acute on chronic pain Outpatient regimen Dilaudid 4 mg p.o. every 4 as needed, Ativan 0.5 mg p.o. 3 times daily Fentanyl TD patch recently increased from 50 mcg to 100 mcg 07/17; then to 112 mc g as of 07/21 and 07/24 increased to 125mcg Follows with Palliative medicine as outpatient; re-involve while here Involve pain management for additional eval; Current pain regimen 6mg po q3hr mg Dilaudid and 2mg IV dilaudid q3hr for breakthrough pain Has been put on bowel regimen Continue with anxiolytic appreciate palliative and pain management assistance 07/24: Pt seen by Palliative Care once more, fentanyl patch dose increased to 125mcg. 07/25: States that pain is improved but still present, plans to follow up outpatient with oncology 07/26: Pt made comfort measures, see above discussion Comfort measures at this time Tachycardia Noted on 07/23. Pt known to be tachycardic, previously evaluated by cardiology at one prior admission Likely multifactorial in setting of cancer, uncontrolled pain and chronic anemia, currently worsening. Was started on metoprolol overnight. Continue to monitor. 07/25-improving 07/26- pt made comfort measures, continue current management Primary adenocarcinoma of upper lobe of right lung: Current plan is to resume outpatient therapy once stable and discharged from hospital Patient was also planning on getting a third opinion regarding chemo regimen from Dr. David 07/24- per Palliative, encouraged pt to get third opinion from [facility] where she [place] been [place] 1/28- pt made comfort measures, see discussion above Pancytopenia Anemia Pt with noted worsening anemia, thrombocytopenia and leukopenia. Has occurred in the past. Holding dvt prophylaxis Consider oncology recall inpatient Per discussion with palliative on 07/24, pt to seek third opinion from [facility] rather than Dr David 07/25-transfused 1U pRBCs on 07/25 given pt's symptoms and hgb of 7.2 07/26- hgb stable Metastasis to brain: Metastatic lesions in the brain and in the bones was shown to the patient's through the computer imaging Denies any headache Intractable N/V: improved continue prn phenergan Hypomagnesemia: repleted Hypokalemia: repleted Tobacco use: Chronic Currently smoking 5 cigarettes per day Smoking cessation recommended Prescribed Ellipta, Advair; continue Albuterol PRN; continue CODE STATUS: DNR/DNI, comfort measures at this time Admission and Anticipated Discharge Date Admission Date: July 28, 2023 Subjective Pt seen in follow up, admitted to [facility] Hx of lung adenocarcinoma w/ mets Currently on STONE ENGRAVER dilaudid No chest pain or shortness of breath. Says she has back pain and trying to stretch as she was in bed whole day and per RN and she slept from about 11 am to 5pm. On Thursday met with the pt and Dr. Cem Hickman (palliative) to clarify POA form that pt filled out previous evening. She understands that being intubated / " put on a machine" does not work with hospice/ comfort care measures and wishes to continue with hospice as is. She wished to change the form, we assisted her with that. I have also notified [facility] hospice. Review of Systems Review of Systems: All systems reviewed & are unremarkable except as noted in Subjective Physical Exam Physical Exam: General: WD/WN young F in No acute distress Psych: Appropriate mood and affect Neuro: Awake and alert, answers appropriately. Moves extremities. HEENT: NC/AT CV: RRR, Normal s1, s2. Resp: no increased effort of breathing. Abdomen: Soft, nontender Extremities: moves extremities bilaterally. Results & Data Results & Data Vital Signs (Past 12 Hours) Vital Signs O2 Del Method 08/01/23 20:20 Room Air Medications Administered Current Inpatient Medications Acetaminophen (Acetaminophen 325 Mg Tab) 650 mg PO Q6H PRN PRN Reason: Fever 37.8C or greater Stop: 08/27/23 18:04 Albuterol (Albuterol Hfa 8 Gm Inhaler) 2 puffs INH Q4H PRN PRN Reason: Shortness Of Breath Or Wheezing Stop: 08/27/23 18:24 Last Admin: 07/31/23 14:09 Dose: 2 puffs Chlorpromazine HCl (Chlorpromazine Hcl 25 Mg Tab) 25 mg PO QID PRN PRN Reason: Hiccups Stop: 08/27/23 18:24 Last Admin: 07/29/23 20:55 Dose: 25 mg Cyanocobalamin (Cyanocobalamin 1000 Mcg/Ml Vial) 1,000 mcg IM Q30D [facility] Stop: 08/28/23 08:59 Last Admin: 07/29/23 08:48 Dose: 1,000 mcg Fluticasone/Vilanterol (Fluticasone/Vilanterol 200/25mcg 14 Puffs/Inhaler) 1 puffs INH DAILY [facility] Stop: 08/28/23 08:59 Last Admin: 08/01/23 08:14 Dose: 1 puffs Folic Acid (Folic Acid 1 Mg Tab) 1 mg PO DAILY [facility] Stop: 08/28/23 08:59 Last Admin: 08/01/23 08:14 Dose: 1 mg Guaifenesin (Guaifenesin 600 Mg Tabcr) 600 mg PO Q12 [facility] Stop: 08/29/23 12:39 Last Admin: 08/01/23 20:24 Dose: 600 mg Hydromorphone HCl (Hydromorphone Paper Machine Back Tender 30 Mg/30 Ml) 30 mg IV PRN PRN; Protocol PRN Reason: STONE ENGRAVER Pain Titration Stop: 08/11/23 18:04 Last Admin: 08/01/23 20:08 Dose: 30 mg Sodium Chloride (Nss) 1,000 mls @ 30 mls/hr IV .Q24H [facility] Stop: 08/11/23 18:08 Last Admin: 08/01/23 18:01 Dose: 30 mls/hr Hydromorphone HCl (Dilaudid/Nss) 100 mg in 100 mls @ 3 mls/hr IV .[id number] MATI; Protocol Stop: 08/13/23 15:44 Last Titration: 08/02/23 07:12 Dose: 3 mg/hr, 3 mls/hr Lorazepam 0.75 mg/ Syringe 0.75 mls @ 2 mls/min IV Q4H PRN; Protocol PRN Reason: Anxiety/Agitation,nausea,spasm Stop: 08/27/23 10:29 Last Admin: 08/02/23 04:24 Dose: 2 mls/min Ibuprofen (Ibuprofen 800 Mg Tab) 800 mg PO Q8H PRN PRN Reason: Pain, Moderate Stop: 08/27/23 18:24 Last Admin: 08/02/23 04:21 Dose: 800 mg Ketorolac Tromethamine (Ketorolac 30 Mg/Ml Vial) 30 mg IV Q6H PRN PRN Reason: Pain not relieved by IBUPROFEN Stop: 08/02/23 18:28 Last Admin: 08/02/23 00:14 Dose: 30 mg Multi-Ingredient Mouthwash/Gargle (First - Mouthwash Blm 119 Ml) 10 ml PO ACHS PRN PRN Reason: dysphagia Stop: 08/27/23 18:34 Naloxone HCl (Naloxone Hcl 0.4 Mg/1 Ml Vial/Carp) 0.1 mg IV Q5M PRN; Protocol PRN Reason: Oversedation/Resp Depression Stop: 08/11/23 18:04 Ondansetron HCl (Ondansetron Inj 2 Mg/Ml 2 Ml Vial) 4 mg IV Q4H PRN PRN Reason: Nausea &/or Vomiting Stop: 08/27/23 18:04 Last Admin: 08/02/23 00:53 Dose: 4 mg Ondansetron HCl (Ondansetron 4 Mg Od Tab) 4 mg SL Q4H PRN PRN Reason: Nausea &/or Vomiting Stop: 08/27/23 18:04 Pantoprazole Sodium (Pantoprazole 40 Mg Tab) 40 mg PO BID [facility] Stop: 08/27/23 20:59 Last Admin: 08/01/23 20:24 Dose: 40 mg Promethazine HCl (Promethazine Hcl 25 Mg Tab) 25 mg PO Q6H PRN PRN Reason: n/v not relieved by Zofran Stop: 08/27/23 18:24 Last Admin: 07/29/23 09:46 Dose: 25 mg Senna/Docusate Sodium (Docusate Sodium/Senna 50/8.6mg Tab) 1 tab PO BID [facility] Stop: 08/11/23 20:59 Last Admin: 08/01/23 20:24 Dose: 1 tab Umeclidinium [place] (Umeclidinium [place] 62.5mcg/Blister 7 Puffs/Inhaler) 1 puffs INH DAILY [facility] Stop: 08/28/23 08:59 Last Admin: 08/01/23 08:14 Dose: 1 puffs
[2023-08-03] MEDS: bisacodyL 10 MG SUPP PR STA (17:16)
--- NOTE | 2023-08-03 17:46 | Hospitalist Progress Note ---
Date of Service August 03, 2023 Assessment & Plan (1) Cancer, metastatic to bone: (2) Cancer-related breakthrough pain: (3) Metastatic adenocarcinoma: (4) Lung cancer metastatic to brain: (5) Pain from bone metastases: (6) Comfort measures only status: Plan Ms. 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 She had #2/10 radiation to her left iliac crest on with persistent pain since. Additional PMH includes chronic pancytopenia (baseline hemoglobin 10-11), history of PE ( not on anticoagulation)endometrial cancer status post surgery, prediabetes, SLE, cancer pain on narcotics, ADD/mood disorder, pseudocholinesterase deficiency, esophageal ulcer as per records, ongoing tobacco use. Follows with palliative medicine as an outpatient for symptom management. She has had 18 admissions in the last year. Pt stated that she would like to be made comfort measures on 07/26/2023 with DNR/DNI status. Transitioned to [facility]/inpatient hospice care on 07/28/2023. Comfort Measures Status: 07/26/2023: Overnight, reports that pt was asking for increasing amounts of pain medication. Currently receiving fentanyl 125mcg via patch, po Dilaudid 6mg q3h, IV Dilaudid 2mg q3h, Ativan 1mg TID for the most part, all on schedule. Reportedly asking nursing overnight to wake her up to get her scheduled medication doses as she was in so much pain. In the AM, jone discussion about her full code status and increasing need for narcotic pain medications along with benzos that could potentially terminally suppress her respiratory drive. Nursing was at bedside as well during that discussion. Pt noted that her desire to be a full code was to ensure that family members had a chance to get to her and say goodbye should she have a turn for the worse. She noted that her main goal was to spend as much time with loved ones as she could and she does not want to in the hospital. She noted she has a sister who resides in another state. The option of hospice care was brought up and she stated that she would like more information but would also like to go home with her loved ones. Case management was advised as well as her inpatient Palliative care provider of patient's desire for more information about hospice and desire to go home. Ritchie noted that her pain at that time was well controlled and she noted that she had not used the IV Dilaudid since earlier in the night. Later notified by nursing that pt was in tears with increased pain and stating that she was not able to go home with this degree of pain. On arrival at bedside, was present. Again jone discussion of her need for increasing narcotic pain medication and the desire to do no harm with her desire at that time to remain a full code. The risk of respiratory drive suppression with need for intubation and ventilator support with increasing doses and frequency of her narcotic pain meds was once again explained, this time with at bedside. It was also explained that she would be able to receive as much pain medications as frequently as she would like if she was comfort measures. Her code status was once again discussed at that time. indicated that over the last few months he has noted a significant decline and was aware of the terminal nature of her diagnosis with the significant spread. He stated that he would like to see her comfortable. Ritchie was in tears and verbalized understanding and agreement but stated that she would like to discuss this further with her sister. Later called back to pt's bedside by nursing as Ritchie had indicated that she would like to discuss things further. Upon entry into the room, and Ritchie indicated that they had contacted family and advised of the situation. Ritchie indicated that she would like to be made comfortable and be made a DNR/DNI. She noted that her pain level was increasing and she would like to get her medications as frequently as she needed. She indicated that she was aware of the risk of respiratory depression and though she is a DNR/DNI, she would like Narcan available for her use if needed. Pt was made comfort measures and her Dilaudid doses were increased in frequency to q2h. Will await further recommendations from inpatient Palliative Care. Consider a dilaudid drip if need for increased pain medication. 07/27: notified by nursing that pt was asking for med every half hour. Per pt, she would just like to know what time her next dose of medication is due. Palliative was at bedside. Pt declined Dilaudid pump/drip. Per palliative family discussion, NO MORE NARCAN use, pt fully comfort measures. 07/28: Pt transitioned to inpatient hospice care/[facility] on 07/28/2023. Started on a D ilaudid PRESETTER OPERATOR pump, can titrate up to meet pt's needs. Appreciate hospice recs. 08/03/23 Increase dilaudid to 3.5 mg cont/ hr, and cont. 1.3 mg q15 min prn as ordered, followed by [facility] hospice and Dr. Hickman (palliative). In addition, will start dexamethasone 4 mg bid and will stop ibuprofen. Primary adenocarcinoma of lung: Mets to brain and bone: New Metastatic Lesion: Chronic Followed with Dr. Charlton, now with [facility] and trying to establish care with Dr. David for another opinion scheduled 08/17/23 Overall poor prognosis New lesion identified on face CT: 1. A 2.5 x 2.5 cm destructive lesion centered within the ramus of the right hemimandible consistent with metastatic disease. No evidence for pathologic fracture at this time. 2. Re-demonstration of the 13 mm intracranial metastatic focus within the right temporal lobe. Will involve ST for safe swallowing techniques Acute on chronic pain Outpatient regimen Dilaudid 4 mg p.o. every 4 as needed, Ativan 0.5 mg p.o. 3 times daily Fentanyl TD patch recently increased from 50 mcg to 100 mcg 07/17; then to 112 mcg as of 07/21 and 07/24 increased to 125mcg Follows with Palliative medicine as outpatient; re-involve while here Involve pain management for additional eval; Current pain regimen 6mg po q3hr mg Dilaudid and 2mg IV dilaudid q3hr for breakthrough pain Has been put on bowel regimen Continue with anxiolytic appreciate palliative and pain management assistance 07/24: Pt seen by Palliative Care once more, fentanyl patch dose increased to 125mcg. 07/25: States that pain is improved but still present, plans to follow up outpatient with oncology 07/26: Pt made comfort measures, see above discussion Comfort measures at this time Tachycardia Noted on 07/23. Pt known to be tachycardic, previously evaluated by cardiology at one prior admission Likely multifactorial in setting of cancer, uncontrolled pain and chronic anemia, currently worsening. Was started on metoprolol overnight. Continue to monitor. 07/25-improving 07/26- pt made comfort measures, continue current management Primary adenocarcinoma of upper lobe of right lung: Current plan is to resume outpatient therapy once stable and discharged from hospital Patient was also planning on getting a third opinion regarding chemo regimen from Dr. David 07/24- per Palliative, encouraged pt to get third opinion from [facility] where she [place] been [place] 07/26- pt made comfort measures, see discussion above Pancytopenia Anemia Pt with noted worsening anemia, thrombocytopenia and leukopenia. Has occurred in the past. Holding dvt prophylaxis Consider oncology recall inpatient Per discussion with palliative on 07/24, pt to seek third opinion from [facility] rather than Dr David 07/25-transfused 1U pRBCs on 07/25 given pt's symptoms and hgb of 7.2 07/26- hgb stable Metastasis to brain: Metastatic lesions in the brain and in the bones was shown to the patient's through the computer imaging Denies any headache Intractable N/V: improved continue prn phenergan Hypomagnesemia: repleted Hypokalemia: repleted Tobacco use: Chronic Currently smoking 5 cigarettes per day Smoking cessation recommended Prescribed Ellipta, Advair; continue Albuterol PRN; continue CODE STATUS: DNR/DNI, comfort measures at this time Admission and Anticipated Discharge Date Admission Date: July 28, 2023 Subjective Pt seen in follow up, admitted to [facility] Hx of lung adenocarcinoma w/ mets Currently on PRESETTER OPERATOR dilaudid No chest pain or shortness of breath. Currently w/ nausea and received zofran. She is not sure when she had a BM , she is taking senna. offered suppository as she has nausea right now and pt agreed. However then received page from RN that she does not want that. Will cont. to work on bowel regimen. Per [facility] hospice note - recommend dexamethasone 4 mg bid - which was started. Continuous dilaudid increased to 3.5 mg per hr. bolus prn dose will not be adjusted at this time, will need to further clarify with hospice and see how much pt is using at this time. RN at the bedside reports pt forgets to use her PRN dose. Review of Systems Review of Systems: All systems reviewed & are unremarkable except as noted in Subjective Physical Exam Physical Exam: General: WD/WN young F in No acute distress Psych: Appropriate mood and affect Neuro: Awake and alert, answers appropriately. Moves extremities. HEENT: NC/AT CV: RRR, Normal s1, s2. Resp: no increased effort of breathing. Abdomen: Soft, nontender Extremities: moves extremities bilaterally. Results & Data Results & Data Medications Administered Current Inpatient Medications Acetaminophen (Acetaminophen 325 Mg Tab) 650 mg PO Q6H PRN PRN Reason: Fever 37.8C or greater Stop: 08/27/23 18:04 Albuterol (Albuterol Hfa 8 Gm Inhaler) 2 puffs INH Q4H PRN PRN Reason: Shortness Of Breath Or Wheezing Stop: 08/27/23 18:24 Last Admin: 07/31/23 14:09 Dose: 2 puffs Chlorpromazine HCl (Chlorpromazine Hcl 25 Mg Tab) 25 mg PO QID PRN PRN Reason: Hiccups Stop: 08/27/23 18:24 Last Admin: 07/29/23 20:55 Dose: 25 mg Cyanocobalamin (Cyanocobalamin 1000 Mcg/Ml Vial) 1,000 mcg IM Q30D [facility] Stop: 08/28/23 08:59 Last Admin: 07/29/23 08:48 Dose: 1,000 mcg Dexamethasone (Dexamethasone 4 Mg Tab) 4 mg PO BID [facility] Stop: 09/02/23 20:59 Fluticasone/Vilanterol (Fluticasone/Vilanterol 200/25mcg 14 Puffs/Inhaler) 1 puffs INH DAILY [facility] Stop: 08/28/23 08:59 Last Admin: 08/03/23 09:52 Dose: 1 puffs Folic Acid (Folic Acid 1 Mg Tab) 1 mg PO DAILY [facility] Stop: 08/28/23 08:59 Last Admin: 08/03/23 09:51 Dose: 1 mg Guaifenesin (Guaifenesin 600 Mg Tabcr) 600 mg PO Q12 [facility] Stop: 08/29/23 12:39 Last Admin: 08/03/23 09:52 Dose: 600 mg Hydromorphone HCl (Hydromorphone [employer] 30 Mg/30 Ml) 30 mg IV PRN PRN; Protocol PRN Reason: PRESETTER OPERATOR Pain Titration Stop: 08/11/23 18:04 Last Admin: 08/02/23 21:13 Dose: 30 mg Sodium Chloride (Nss) 1,000 mls @ 30 mls/hr IV .Q24H [facility] Stop: 08/11/23 18:08 Last Admin: 08/02/23 18:12 Dose: 30 mls/hr Hydromorphone HCl (Dilaudid/Nss) 100 mg in 100 mls @ 3.5 mls/hr IV .[id number] [facility]; Protocol Stop: 08/13/23 15:44 Last Admin: 08/03/23 12:22 Dose: 3 mg/hr, 3 mls/hr Lorazepam 0.75 mg/ Syringe 0.75 mls @ 2 mls/min IV Q4H PRN; Protocol PRN Reason: Anxiety/Agitation,nausea,spasm Stop: 08/27/23 10:29 Last Admin: 08/03/23 10:05 Dose: 2 mls/min Ibuprofen (Ibuprofen 800 Mg Tab) 800 mg PO Q8H PRN PRN Reason: Pain, Moderate Stop: 08/27/23 18:24 Last Admin: 08/03/23 09:51 Dose: 800 mg Multi-Ingredient Mouthwash/Gargle (First - Mouthwash Blm 119 Ml) 10 ml PO ACHS PRN PRN Reason: dysphagia Stop: 08/27/23 18:34 Naloxone HCl (Naloxone Hcl 0.4 Mg/1 Ml Vial/Carp) 0.1 mg IV Q5M PRN; Protocol PRN Reason: Oversedation/Resp Depression Stop: 08/11/23 18:04 Ondansetron HCl (Ondansetron Inj 2 Mg/Ml 2 Ml Vial) 4 mg IV Q4H PRN PRN Reason: Nausea &/or Vomiting Stop: 08/27/23 18:04 Last Admin: 08/03/23 16:41 Dose: 4 mg Ondansetron HCl (Ondansetron 4 Mg Od Tab) 4 mg SL Q4H PRN PRN Reason: Nausea &/or Vomiting Stop: 08/27/23 18:04 Pantoprazole Sodium (Pantoprazole 40 Mg Tab) 40 mg PO BID [facility] Stop: 08/27/23 20:59 Last Admin: 08/03/23 09:52 Dose: 40 mg Promethazine HCl (Promethazine Hcl 25 Mg Tab) 25 mg PO Q6H PRN PRN Reason: n/v not relieved by Zofran Stop: 08/27/23 18:24 Last Admin: 08/02/23 09:55 Dose: 25 mg Senna/Docusate Sodium (Docusate Sodium/Senna 50/8.6mg Tab) 1 tab PO BID [facility] Stop: 08/11/23 20:59 Last Admin: 08/03/23 09:52 Dose: 1 tab Umeclidinium [place] (Umeclidinium [place] 62.5mcg/Blister 7 Puffs/Inhaler) 1 puffs INH DAILY [facility] Stop: 08/28/23 08:59 Last Admin: 08/03/23 09:52 Dose: 1 puffs
[2023-08-03] MEDS: dexAMETHasone 4 MG TAB PO SCH (19:37)
--- NOTE | 2023-08-04 09:04 | Hospitalist Progress Note ---
Date of Service August 04, 2023 Assessment & Plan (1) Cancer, metastatic to bone: (2) Cancer-related breakthrough pain: (3) Metastatic adenocarcinoma: (4) Lung cancer metastatic to brain: (5) Pain from bone metastases: (6) Comfort measures only status: Plan Ms. 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 She had #2/10 radiation to her left iliac crest on with persistent pain since. Additional PMH includes chronic pancytopenia (baseline hemoglobin 10-11), history of PE ( not on anticoagulation)endometrial cancer status post surgery, prediabetes, SLE, cancer pain on narcotics, ADD/mood disorder, pseudocholinesterase deficiency, esophageal ulcer as per records, ongoing tobacco use. Follows with palliative medicine as an outpatient for symptom management. She has had 18 admissions in the last year. Pt stated that she would like to be made comfort measures on 07/26/2023 with DNR/DNI status. Transitioned to [facility]/inpatient hospice care on 07/28/2023. Comfort Measures Status: 07/26/2023: Overnight, reports that pt was asking for increasing amounts of pain medication. Currently receiving fentanyl 125mcg via patch, po Dilaudid 6mg q3h, IV Dilaudid 2mg q3h, Ativan 1mg TID for the most part, all on schedule. Reportedly asking nursing overnight to wake her up to get her scheduled medication doses as she was in so much pain. In the AM, jone discussion about her full code status and increasing need for narcotic pain medications along with benzos that could potentially terminally suppress her respiratory drive. Nursing was at bedside as well during that discussion. Pt noted that her desire to be a full code was to ensure that family members had a chance to get to her and say goodbye should she have a turn for the worse. She noted that her main goal was to spend as much time with loved ones as she could and she does not want to in the hospital. She noted she has a sister who resides in another state. The option of hospice care was brought up and she stated that she would like more information but would also like to go home with her loved ones. Case management was advised as well as her inpatient Palliative care provider of patient's desire for more information about hospice and desire to go home. Ritchie noted that her pain at that time was well controlled and she noted that she had not used the IV Dilaudid since earlier in the night. Later notified by nursing that pt was in tears with increased pain and stating that she was not able to go home with this degree of pain. On arrival at bedside, was present. Again jone discussion of her need for increasing narcotic pain medication and the desire to do no harm with her desire at that time to remain a full code. The risk of respiratory drive suppression with need for intubation and ventilator support with increasing doses and frequency of her narcotic pain meds was once again explained, this time with at bedside. It was also explained that she would be able to receive as much pain medications as frequently as she would like if she was comfort measures. Her code status was once again discussed at that time. indicated that over the last few months he has noted a significant decline and was aware of the terminal nature of her diagnosis with the significant spread. He stated that he would like to see her comfortable. Ritchie was in tears and verbalized understanding and agreement but stated that she would like to discuss this further with her sister. Later called back to pt's bedside by nursing as Ritchie had indicated that she would like to discuss things further. Upon entry into the room, and Ritchie indicated that they had contacted family and advised of the situation. Ritchie indicated that she would like to be made comfortable and be made a DNR/DNI. She noted that her pain level was increasing and she would like to get her medications as frequently as she needed. She indicated that she was aware of the risk of respiratory depression and though she is a DNR/DNI, she would like Narcan available for her use if needed. Pt was made comfort measures and her Dilaudid doses were increased in frequency to q2h. Will await further recommendations from inpatient Palliative Care. Consider a dilaudid drip if need for increased pain medication. 07/27: notified by nursing that pt was asking for med every half hour. Per pt, she would just like to know what time her next dose of medication is due. Palliative was at bedside. Pt declined Dilaudid pump/drip. Per palliative family discussion, NO MORE NARCAN use, pt fully comfort measures. 07/28: Pt transitioned to inpatient hospice care/[facility] on 07/28/2023. Started on a Dilaudid SENIOR ADMINISTRATIVE SUPPORT pump, can titrate up to meet pt's needs. Appreciate hospice recs. 08/04/23 Dilaudid to 3.5 mg cont/ hr, and 2 mg q15 min prn as ordered, followed by [facility] hospice and Dr. Hickman (palliative). In addition, cont. dexamethasone 4 mg bid. Increase ativan and start zyprexa. Discussed w/ billing specialist today. Primary adenocarcinoma of lung: Mets to brain and bone: New Metastatic Lesion: Chronic Followed with Dr. Charlton, now with [facility] and trying to establish care with Dr. David for another opinion scheduled 08/17/23 Overall poor prognosis New lesion identified on face CT: 1. A 2.5 x 2.5 cm destructive lesion centered within the ramus of the right hemimandible consistent with metastatic disease. No evidence for pathologic fracture at this time. 2. Re-demonstration of the 13 mm intracranial metastatic focus within the right temporal lobe. Will involve ST for safe swallowing techniques Acute on chronic pain Outpatient regimen Dilaudid 4 mg p.o. every 4 as needed, Ativan 0.5 mg p.o. 3 times daily Fentanyl TD patch recently increased from 50 mcg to 100 mcg 07/17; then to 112 mcg as of 07/21 and 07/24 increased to 125mcg Follows with Palliative medicine as outpatient; re-involve while here Involve pain management for additional eval; Current pain regimen 6mg po q3hr mg Dilaudid and 2mg IV dilaudid q3hr for breakthrough pain Has been put on bowel regimen Continue with anxiolytic appreciate palliative and pain management assistance 07/24: Pt seen by Palliative Care once more, fentanyl patch dose increased to 125mcg. 07/25: States that pain is improved but still present, plans to follow up outpatient with oncology 07/26: Pt made comfort measures, see above discussion Comfort measures at this time Tachycardia Noted on 07/23. Pt known to be tachycardic, previously evaluated by cardiology at one prior admission Likely multifactorial in setting of cancer, uncontrolled pain and chronic anemia, currently worsening. Was started on metoprolol overnight. Continue to monitor. 07/25-improving 07/26- pt made comfort measures, continue current management Primary adenocarcinoma of upper lobe of right lung: Current plan is to resume outpatient therapy once stable and discharged from hospital Patient was also planning on getting a third opinion regarding chemo regimen from Dr. David 07/24- per Palliative, encouraged pt to get third opinion from [facility] where she [place] been [place] 07/26- pt made comfort measures, see discussion above Pancytopenia Anemia Pt with noted worsening anemia, thrombocytopenia and leukopenia. Has occurred in the past. Holding dvt prophylaxis Consider oncology recall inpatient Per discussion with palliative on 07/24, pt to seek third opinion from [facility] rather than Dr David 07/25-transfused 1U pRBCs on 07/25 given pt's symptoms and hgb of 7.2 07/26- hgb stable Metastasis to brain: Metastatic lesions in the brain and in the bones was shown to the patient's through the computer imaging Denies any headache Intractable N/V: improved continue prn phenergan Hypomagnesemia: repleted Hypokalemia: repleted Tobacco use: Chronic Currently smoking 5 cigarettes per day Smoking cessation recommended Prescribed Ellipta, Advair; continue Albuterol PRN; continue CODE STATUS: DNR/DNI, comfort measures at this time Admission and Anticipated Discharge Date Admission Date: July 28, 2023 Subjective Pt seen in follow up, admitted to [facility] Hx of lung adenocarcinoma w/ mets Currently on SENIOR ADMINISTRATIVE SUPPORT dilaudid No chest pain or shortness of breath. However today she says she is in pain and crying. I have not seen her upset and crying like this. Usually she is in no distress, sometimes even very sleepy. Per [facility] hospice note - recommended dexamethasone 4 mg bid - which was started yesterday. Continuous dilaudid increased to 3.5 mg per hr and 2 mg bolus prn dose also increased today. Per [facility] hospice also recommend zyprexa and increase prn ativan. Review of Systems Review of Systems: All systems reviewed & are unremarkable except as noted in Subjective Physical Exam Physical Exam: General: WD/WN young F , today crying and reports pain Psych: More anxious today Neuro: Awake and alert, answers appropriately. Moves extremities. HEENT: NC/AT CV: RRR, Normal s1, s2. Resp: no increased effort of breathing. Abdomen: Soft, nontender Extremities: moves extremities bilaterally. Results & Data Results & Data Medications Administered Current Inpatient Medications Acetaminophen (Acetaminophen 325 Mg Tab) 650 mg PO Q6H PRN PRN Reason: Fever 37.8C or greater Stop: 08/27/23 18:04 Albuterol (Albuterol Hfa 8 Gm Inhaler) 2 puffs INH Q4H PRN PRN Reason: Shortness Of Breath Or Wheezing Stop: 08/27/23 18:24 Last Admin: 07/31/23 14:09 Dose: 2 puffs Chlorpromazine HCl (Chlorpromazine Hcl 25 Mg Tab) 25 mg PO QID PRN PRN Reason: Hiccups Stop: 08/27/23 18:24 Last Admin: 07/29/23 20:55 Dose: 25 mg Cyanocobalamin (Cyanocobalamin 1000 Mcg/Ml Vial) 1,000 mcg IM Q30D [facility] Stop: 08/28/23 08:59 Last Admin: 07/29/23 08:48 Dose: 1,000 mcg Dexamethasone (Dexamethasone 4 Mg Tab) 4 mg PO BID [facility] Stop: 09/02/23 20:59 Last Admin: 08/04/23 08:58 Dose: 4 mg Fluticasone/Vilanterol (Fluticasone/Vilanterol 200/25mcg 14 Puffs/Inhaler) 1 puffs INH DAILY [facility] Stop: 08/28/23 08:59 Last Admin: 08/04/23 08:59 Dose: 1 puffs Folic Acid (Folic Acid 1 Mg Tab) 1 mg PO DAILY [facility] Stop: 08/28/23 08:59 Last Admin: 08/04/23 08:58 Dose: 1 mg Guaifenesin (Guaifenesin 600 Mg Tabcr) 600 mg PO Q12 [facility] Stop: 08/29/23 12:39 Last Admin: 08/04/23 08:58 Dose: 600 mg Hydromorphone HCl (Hydromorphone Family Health Nurse Practitioner 30 Mg/30 Ml) 30 mg IV PRN PRN; Protocol PRN Reason: SENIOR ADMINISTRATIVE SUPPORT Pain Titration Stop: 08/11/23 18:04 Last Admin: 08/03/23 19:30 Dose: 30 mg Sodium Chloride (Nss) 1,000 mls @ 30 mls/hr IV .Q24H [facility] Stop: 08/11/23 18:08 Last Admin: 08/04/23 03:15 Dose: 30 mls/hr Hydromorphone HCl (Dilaudid/Nss) 100 mg in 100 mls @ 3.5 mls/hr IV .[id number] [facility]; Protocol Stop: 08/13/23 15:44 Last Titration: 08/03/23 19:02 Dose: 3.5 mg/hr, 3.5 mls/hr Lorazepam 0.75 mg/ Syringe 0.75 mls @ 2 mls/min IV Q4H PRN; Protocol PRN Reason: Anxiety/Agitation,nausea,spasm Stop: 08/27/23 10:29 Last Admin: 08/04/23 08:42 Dose: 2 mls/min Ibuprofen (Ibuprofen 800 Mg Tab) 800 mg PO Q8H PRN PRN Reason: Pain, Moderate Stop: 08/27/23 18:24 Last Admin: 08/03/23 09:51 Dose: 800 mg Multi-Ingredient Mouthwash/Gargle (First - Mouthwash Blm 119 Ml) 10 ml PO ACHS PRN PRN Reason: dysphagia Stop: 08/27/23 18:34 Naloxone HCl (Naloxone Hcl 0.4 Mg/1 Ml Vial/Carp) 0.1 mg IV Q5M PRN; Protocol PRN Reason: Oversedation/Resp Depression Stop: 08/11/23 18:04 Ondansetron HCl (Ondansetron Inj 2 Mg/Ml 2 Ml Vial) 4 mg IV Q4H PRN PRN Reason: Nausea &/or Vomiting Stop: 08/27/23 18:04 Last Admin: 08/04/23 05:56 Dose: 4 mg Ondansetron HCl (Ondansetron 4 Mg Od Tab) 4 mg SL Q4H PRN PRN Reason: Nausea &/or Vomiting Stop: 08/27/23 18:04 Pantoprazole Sodium (Pantoprazole 40 Mg Tab) 40 mg PO BID [facility] Stop: 08/27/23 20:59 Last Admin: 08/04/23 08:58 Dose: 40 mg Promethazine HCl (Promethazine Hcl 25 Mg Tab) 25 mg PO Q6H PRN PRN Reason: n/v not relieved by Zofran Stop: 08/27/23 18:24 Last Admin: 08/02/23 09:55 Dose: 25 mg Senna/Docusate Sodium (Docusate Sodium/Senna 50/8.6mg Tab) 1 tab PO BID [facility] Stop: 08/11/23 20:59 Last Admin: 08/04/23 08:58 Dose: 1 tab Umeclidinium Harleigh (Umeclidinium Harleigh 62.5mcg/Blister 7 Puffs/Inhaler) 1 puffs INH DAILY [facility] Stop: 08/28/23 08:59 Last Admin: 08/04/23 08:58 Dose: 1 puffs
[2023-08-04] MEDS: KETOROLAC TROMETHAMINE 15 MG/ML VIAL IV ONE (16:47)
[2023-08-04] MEDS ORDERED: LORAZEPAM IV PRN (16:52)
[2023-08-04] MEDS: OLANZAPINE 2.5 MG TAB PO SCH (21:53)
[2023-08-05] MEDS: LORazepam 1 MG in SYRINGE 0.5 ML IV PRN (10:06)
--- NOTE | 2023-08-06 07:54 | Hospitalist Progress Note ---
Date of Service August 05, 2023 Assessment & Plan (1) Cancer, metastatic to bone: (2) Cancer-related breakthrough pain: (3) Metastatic adenocarcinoma: (4) Lung cancer metastatic to brain: (5) Pain from bone metastases: (6) Comfort measures only status: Plan Ms. 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 She had #2/10 radiation to her left iliac crest on with persistent pain since. Additional PMH includes chronic pancytopenia (baseline hemoglobin 10-11), history of PE ( not on anticoagulation)endometrial cancer status post surgery, prediabetes, SLE, cancer pain on narcotics, ADD/mood disorder, pseudocholinesterase deficiency, esophageal ulcer as per records, ongoing tobacco use. Follows with palliative medicine as an outpatient for symptom management. She has had 18 admissions in the last year. Pt stated that she would like to be made comfort measures on 07/26/2023 with DNR/DNI status. Transitioned to [facility]/inpatient hospice care on 07/28/2023. Comfort Measures Status: 07/26/2023: Overnight, reports that pt was asking for increasing amounts of pain medication. Currently receiving fentanyl 125mcg via patch, po Dilaudid 6mg q3h, IV Dilaudid 2mg q3h, Ativan 1mg TID for the most part, all on schedule. Reportedly asking nursing overnight to wake her up to get her scheduled medication doses as she was in so much pain. In the AM, jone discussion about her full code status and increasing need for narcotic pain medications along with benzos that could potentially terminally suppress her respiratory drive. Nursing was at bedside as well during that discussion. Pt noted that her desire to be a full code was to ensure that family members had a chance to get to her and say goodbye should she have a turn for the worse. She noted that her main goal was to spend as much time with loved ones as she could and she does not want to in the hospital. She noted she has a sister who resides in another state. The option of hospice care was brought up and she stated that she would like more information but would also like to go home with her loved ones. Case management was advised as well as her inpatient Palliative care provider of patient's desire for more information about hospice and desire to go home. Ritchie noted that her pain at that time was well controlled and she noted that she had not used the IV Dilaudid since earlier in the night. Later notified by nursing that pt was in tears with increased pain and stating that she was not able to go home with this degree of pain. On arrival at bedside, was present. Again jone discussion of her need for increasing narcotic pain medication and the desire to do no harm with her desire at that time to remain a full code. The risk of respiratory drive suppression with need for intubation and ventilator support with increasing doses and frequency of her narcotic pain meds was once again explained, this time with at bedside. It was also explained that she would be able to receive as much pain medications as frequently as she would like if she was comfort measures. Her code status was once again discussed at that time. indicated that over the last few months he has noted a significant decline and was aware of the terminal nature of her diagnosis with the significant spread. He stated that he would like to see her comfortable. Ritchie was in tears and verbalized understanding and agreement but stated that she would like to discuss this further with her sister. Later called back to pt's bedside by nursing as Ritchie had indicated that she would like to discuss things further. Upon entry into the room, and Ritchie indicated that they had contacted family and advised of the situation. Ritchie indicated that she would like to be made comfortable and be made a DNR/DNI. She noted that her pain level was increasing and she would like to get her medications as frequently as she needed. She indicated that she was aware of the risk of respiratory depression and though she is a DNR/DNI, she would like Narcan available for her use if needed. Pt was made comfort measures and her Dilaudid doses were increased in frequency to q2h. Will await further recommendations from inpatient Palliative Care. Consider a dilaudid drip if need for increased pain medication. 07/27: notified by nursing that pt was asking for med every half hour. Per pt, she would just like to know what time her next dose of medication is due. Palliative was at bedside. Pt declined Dilaudid pump/drip. Per palliative family discussion, NO MORE NARCAN use, pt fully comfort measures. 07/28: Pt transitioned to inpatient hospice care/[facility] on 07/28/2023. Started on a Dilaudid FIRER BOILER pump, can titrate up to meet pt's needs. Appreciate hospice recs. 08/04/23 Dilaudid 3.5 mg cont/ hr, and 2 mg q15 min prn as ordered, followed by [facility] hospice and Dr. Hickman (palliative). In addition, cont. dexamethasone 4 mg bid. Increased ativan and started zyprexa. Discussed w/ central office supervisor today. 08/05 Pt is not taking zyprexa as prescribed. Not able to locate [facility] recommendations today. No message left with pt's RN either regarding recommendations. Will need to make sure [facility] communicates with us. Primary adenocarcinoma of lung: Mets to brain and bone: New Metastatic Lesion: Chronic Followed with Dr. Charlton, now with [facility] and trying to establish care with Dr. David for another opinion scheduled 08/17/23 Overall poor prognosis New lesion identified on face CT: 1. A 2.5 x 2.5 cm destructive lesion centered within the ramus of the right hemimandible consistent with metastatic disease. No evidence for pathologic fracture at this time. 2. Re-demonstration of the 13 mm intracranial metastatic focus within the right temporal lobe. Will involve ST for safe swallowing techniques Acute on chronic pain Outpatient regimen Dilaudid 4 mg p.o. every 4 as needed, Ativan 0.5 mg p.o. 3 times daily Fentanyl TD patch recently increased from 50 mcg to 100 mcg 07/17; then to 112 mcg as of 07/21 and 07/24 increased to 125mcg Follows with Palliative medicine as outpatient; re-involve while here Involve pain management for additional eval; Current pain regimen 6mg po q3hr mg Dilaudid and 2mg IV dilaudid q3hr for breakthrough pain Has been put on bowel regimen Continue with anxiolytic appreciate palliative and pain management assistance 07/24: Pt seen by Palliative Care once more, fentanyl patch dose increased to 125mcg. 07/25: States that pain is improved but still present, plans to follow up outpatient with oncology 07/26: Pt made comfort measures, see above discussion Comfort measures at this time Tachycardia Noted on 07/23. Pt known to be tachycardic, previously evaluated by cardiology at one prior admission Likely multifactorial in setting of cancer, uncontrolled pain and chronic anemia, currently worsening. Was started on metoprolol overnight. Continue to monitor. 07/25-improving 07/26- pt made comfort measures, continue current management Primary adenocarcinoma of upper lobe of right lung: Current plan is to resume outpatient therapy once stable and discharged from hospital Patient was also planning on getting a third opinion regarding chemo regimen from Dr. David 07/24- per Palliative, encouraged pt to get third opinion from [facility] where [place] 07/26- pt made comfort measures, see discussion above Pancytopenia Anemia Pt with noted worsening anemia, thrombocytopenia and leukopenia. Has occurred in the past. Holding dvt prophylaxis Consider oncology recall inpatient Per discussion with palliative on 07/24, pt to seek third opinion from [facility] rather than Dr David 07/25-transfused 1U pRBCs on 07/25 given pt's symptoms and hgb of 7.2 07/26- hgb stable Metastasis to brain: Metastatic lesions in the brain and in the bones was shown to the patient's through the computer imaging Denies any headache Intractable N/V: improved continue prn phenergan Hypomagnesemia: repleted Hypokalemia: repleted Tobacco use: Chronic Currently smoking 5 cigarettes per day Smoking cessation recommended Prescribed Ellipta, Advair; continue Albuterol PRN; continue CODE STATUS: DNR/DNI, comfort measures at this time Admission and Anticipated Discharge Date Admission Date: July 28, 2023 Subjective Pt seen in follow up, admitted to [facility] Hx of lung adenocarcinoma w/ mets Currently on FIRER BOILER dilaudid No chest pain or shortness of breath. Today sitting up in bed in NAD, does not recall that yesterday she had a "bad day". Appears tired and says she feels tired. Not taking zyprexa as prescribed. Per [facility] hospice previous recs - dexamethasone 4 mg bid. Continuous dilaudid 3.5 mg per hr and 2 mg bolus prn dose. Per [facility] hospice also recommend zyprexa and increase prn ativan which was done. Today, not able to track down [facility] recommendations - checked chart in late afternoon - no recommendations placed there. RN not aware of what recommendations [facility] would like to make if any. Will need to ensure that [facility] communicates with us. Review of Systems Review of Systems: All systems reviewed & are unremarkable except as noted in Subjective Physical Exam Physical Exam: General: WD/WN young F , in NAD Psych: calm, drowsy today Neuro: Awake and answers appropriately. Moves extremities. HEENT: NC/AT CV: RRR, Normal s1, s2. Resp: no increased effort of breathing. Abdomen: Soft, nontender Extremities: moves extremities bilaterally. Results & Data Results & Data Vital Signs (Past 12 Hours)
--- NOTE | 2023-08-06 18:08 | Hospitalist Progress Note ---
Date of Service August 06, 2023 Assessment & Plan (1) Cancer, metastatic to bone: (2) Cancer-related breakthrough pain: (3) Metastatic adenocarcinoma: (4) Lung cancer metastatic to brain: (5) Pain from bone metastases: (6) Comfort measures only status: Plan Ms. 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 She had #2/10 radiation to her left iliac crest on with persistent pain since. Additional PMH includes chronic pancytopenia (baseline hemoglobin 10-11), history of PE ( not on anticoagulation)endometrial cancer status post surgery, prediabetes, SLE, cancer pain on narcotics, ADD/mood disorder, pseudocholinesterase deficiency, esophageal ulcer as per records, ongoing tobacco use. Follows with palliative medicine as an outpatient for symptom management. She has had 18 admissions in the last year. Pt stated that she would like to be made comfort measures on 07/26/2023 with DNR/DNI status. Transitioned to [facility] [place]/inpatient hospice care on 07/28/2023. Comfort Measures Status: 07/26/2023: Overnight, reports that pt was asking for increasing amounts of pain medication. Currently receiving fentanyl 125mcg via patch, po Dilaudid 6mg q3h, IV Dilaudid 2mg q3h, Ativan 1mg TID for the most part, all on schedule. Reportedly asking nursing overnight to wake her up to get her scheduled medication doses as she was in so much pain. In the AM, jone discussion about her full code status and increasing need for narcotic pain medications along with benzos that could potentially terminally suppress her respiratory drive. Nursing was at bedside as well during that discussion. Pt noted that her desire to be a full code was to ensure that family members had a chance to get to her and say goodbye should she have a turn for the worse. She noted that her main goal was to spend as much time with loved ones as she could and she does not want to in the hospital. She noted she has a sister who resides in another state. The option of hospice care was brought up and she stated that she would like more information but would also like to go home with her loved ones. Case management was advised as well as her inpatient Palliative care provider of patient's desire for more information about hospice and desire to go home. Ritchie noted that her pain at that time was well controlled and she noted that she had not used the IV Dilaudid since earlier in the night. Later notified by nursing that pt was in tears with increased pain and stating that she was not able to go home with this degree of pain. On arrival at bedside, was present. Again jone discussion of her need for increasing narcotic pain medication and the desire to do no harm with her desire at that time to remain a full code. The risk of respiratory drive suppression with need for intubation and ventilator support with increasing doses and frequency of her narcotic pain meds was once again explained, this time with at bedside. It was also explained that she would be able to receive as much pain medications as frequently as she would like if she was comfort measures. Her code status was once again discussed at that time. indicated that over the last few months he has noted a significant decline and was aware of the terminal nature of her diagnosis with the significant spread. He stated that he would like to see her comfortable. Ritchie was in tears and verbalized understanding and agreement but stated that she would like to discuss this further with her sister. Later called back to pt's bedside by nursing as Ritchie had indicated that she would like to discuss things further. Upon entry into the room, and Ritchie indicated that they had contacted family and advised of the situation. Ritchie indicated that she would like to be made comfortable and be made a DNR/DNI. She noted that her pain level was increasing and she would like to get her medications as frequently as she needed. She indicated that she was aware of the risk of respiratory depression and though she is a DNR/DNI, she would like Narcan available for her use if needed. Pt was made comfort measures and her Dilaudid doses were increased in frequency to q2h. Will await further recommendations from inpatient Palliative Care. Consider a dilaudid drip if need for increased pain medication. 07/27: notified by nursing that pt was asking for med every half hour. Per pt, she would just like to know what time her next dose of medication is due. Palliative was at bedside. Pt declined Dilaudid pump/drip. Per palliative family discussion, NO MORE NARCAN use, pt fully comfort measures. 07/28: Pt transitioned to inpatient hospice care/[facility] [place] on 07/28/2023. Started on a Dilaudid CERTIFIED NURSES AIDE pump, can titrate up to meet pt's needs. Appreciate hospice recs. 08/06/23 Currently on Dilaudid 3.5 mg cont/ hr, and 2 mg q15 min prn as ordered, followed by [facility] hospice and Dr. Hickman (palliative). In addition, cont. dexamethasone 4 mg bid. Increased ativan and started zyprexa. per RN - pt not using zyprexa. Per [facility] cutting room supervisor - left message with pt's hospital RN - no medication changes recommended at this time. Primary adenocarcinoma of lung: Mets to brain and bone: New Metastatic Lesion: Chronic Followed with Dr. Charlton, now with [facility] and trying to establish care with Dr. David for another opinion scheduled 08/17/23 Overall poor prognosis New lesion identified on face CT: 1. A 2.5 x 2.5 cm destructive lesion centered within the ramus of the right hemimandible consistent with metastatic disease. No evidence for pathologic fracture at this time. 2. Re-demonstration of the 13 mm intracranial metastatic focus within the right temporal lobe. Will involve ST for safe swallowing techniques Acute on chronic pain Outpatient regimen Dilaudid 4 mg p.o. every 4 as needed, Ativan 0.5 mg p.o. 3 times daily Fentanyl TD patch recently increased from 50 mcg to 100 mcg 07/17; then to 112 mcg as of 07/21 and 07/24 increased to 125mcg Follows with Palliative medicine as outpatient; re-involve while here Involve pain management for additional eval; Current pain regimen 6mg po q3hr mg Dilaudid and 2mg IV dilaudid q3hr for breakthrough pain Has been put on bowel regimen Continue with anxiolytic appreciate palliative and pain management assistance 07/24: Pt seen by Palliative Care once more, fentanyl patch dose increased to 125mcg. 07/25: States that pain is improved but still present, plans to follow up outpatient with oncology 07/26: Pt made comfort measures, see above discussion Comfort measures at this time Tachycardia Noted on 07/23. Pt known to be tachycardic, previously evaluated by cardiology at one prior admission Likely multifactorial in setting of cancer, uncontrolled pain and chronic anemia, currently worsening. Was started on metoprolol overnight. Continue to monitor. 07/25-improving 07/26- pt made comfort measures, continue current management Primary adenocarcinoma of upper lobe of right lung: Current plan is to resume outpatient therapy once stable and discharged from hospital Patient was also planning on getting a third opinion regarding chemo regimen from Dr. David 07/24- per Palliative, encouraged pt to get third opinion from [facility] where she has been seen [place] 07/26- pt made comfort measures, see discussion above Pancytopenia Anemia Pt with noted worsening anemia, thrombocytopenia and leukopenia. Has occurred in the past. Holding dvt prophylaxis Consider oncology recall inpatient Per discussion with palliative on 07/24, pt to seek third opinion from [facility] rather than Dr David 07/25-transfused 1U pRBCs on 07/25 given pt's symptoms and hgb of 7.2 07/26- hgb stable Metastasis to brain: Metastatic lesions in the brain and in the bones was shown to the patient's through the computer imaging Denies any headache Intractable N/V: improved continue prn phenergan Hypomagnesemia: repleted Hypokalemia: repleted Tobacco use: Chronic Currently smoking 5 cigarettes per day Smoking cessation recommended Prescribed Ellipta, Advair; continue Albuterol PRN; continue CODE STATUS: DNR/DNI, comfort measures at this time Admission and Anticipated Discharge Date Admission Date: July 28, 2023 Subjective Pt seen in follow up, admitted to [facility] [place] Hx of lung adenocarcinoma w/ mets Currently on CERTIFIED NURSES AIDE dilaudid No chest pain or shortness of breath. Today sitting up in bed in NAD. Per RN, pt not taking zyprexa as prescribed. [facility] hospice following closely - left message w/ RN - no changes planned at this time regarding her medications. Currently on dexamethasone 4 mg bid. Continuous dilaudid 3.5 mg per hr and 2 mg bolus prn dose. Per [facility] hospice also recommend zyprexa and prn ativan. Review of Systems Review of Systems: All systems reviewed & are unremarkable except as noted in Subjective Physical Exam Physical Exam: General: WD/WN young F , in NAD Psych: calm today Neuro: Awake and answers appropriately. Moves extremities. HEENT: NC/AT CV: RRR, Normal s1, s2. Resp: no increased effort of breathing. Abdomen: Soft, nontender Extremities: moves extremities bilaterally. Results & Data Results & Data Vital Signs (Past 12 Hours) Vital Signs O2 Del Method 08/06/23 11:05 Room Air Medications Administered Current Inpatient Medications Acetaminophen (Acetaminophen 325 Mg Tab) 650 mg PO Q6H PRN PRN Reason: Fever 37.8C or greater Stop: 08/27/23 18:04 Albuterol (Albuterol Hfa 8 Gm Inhaler) 2 puffs INH Q4H PRN PRN Reason: Shortness Of Breath Or Wheezing Stop: 08/27/23 18:24 Last Admin: 07/31/23 14:09 Dose: 2 puffs Chlorpromazine HCl (Chlorpromazine Hcl 25 Mg Tab) 25 mg PO QID PRN PRN Reason: Hiccups Stop: 08/27/23 18:24 Last Admin: 08/04/23 21:55 Dose: 25 mg Cyanocobalamin (Cyanocobalamin 1000 Mcg/Ml Vial) 1,000 mcg IM Q30D [facility] Stop: 08/28/23 08:59 Last Admin: 07/29/23 08:48 Dose: 1,000 mcg Dexamethasone (Dexamethasone 4 Mg Tab) 4 mg PO BID [facility] Stop: 09/02/23 20:59 Last Admin: 08/06/23 08:11 Dose: 4 mg Fluticasone/Vilanterol (Fluticasone/Vilanterol 200/25mcg 14 Puffs/Inhaler) 1 puffs INH DAILY [facility] Stop: 08/28/23 08:59 Last Admin: 08/06/23 08:05 Dose: Not Given Folic Acid (Folic Acid 1 Mg Tab) 1 mg PO DAILY [facility] Stop: 08/28/23 08:59 Last Admin: 08/06/23 08:11 Dose: 1 mg Guaifenesin (Guaifenesin 600 Mg Tabcr) 600 mg PO Q12 [facility] Stop: 08/29/23 12:39 Last Admin: 08/06/23 08:11 Dose: 600 mg Hydromorphone HCl (Hydromorphone [employer] 30 Mg/30 Ml) 30 mg IV PRN PRN; Protocol PRN Reason: CERTIFIED NURSES AIDE Pain Titration Stop: 08/11/23 18:04 Last Admin: 08/06/23 14:12 Dose: 30 mg Sodium Chloride (Nss) 1,000 mls @ 30 mls/hr IV .Q24H [facility] Stop: 08/11/23 18:08 Last Admin: 08/06/23 01:42 Dose: 30 mls/hr Hydromorphone HCl (Dilaudid/Nss) 100 mg in 100 mls @ 3.5 mls/hr IV .[id number] [facility]; Protocol Stop: 08/13/23 15:44 Last Titration: 08/06/23 07:20 Dose: 3.5 mg/hr, 3.5 mls/hr Lorazepam 1 mg/ Syringe 1 mls @ 2 mls/min IV Q4H PRN; Protocol PRN Reason: Anxiety/Agitation,nausea,spasm Stop: 09/04/23 09:32 Last Admin: 08/06/23 15:53 Dose: 2 mls/min Ibuprofen (Ibuprofen 800 Mg Tab) 800 mg PO Q8H PRN PRN Reason: Pain, Moderate Stop: 08/27/23 18:24 Last Admin: 08/06/23 16:42 Dose: 800 mg Multi-Ingredient Mouthwash/Gargle (First - Mouthwash Blm 119 Ml) 10 ml PO ACHS PRN PRN Reason: dysphagia Stop: 08/27/23 18:34 Naloxone HCl (Naloxone Hcl 0.4 Mg/1 Ml Vial/Carp) 0.1 mg IV Q5M PRN; Protocol PRN Reason: Oversedation/Resp Depression Stop: 08/11/23 18:04 Olanzapine (Olanzapine 2.5 Mg Tab) 2.5 mg PO BID [facility] Stop: 09/03/23 20:59 Last Admin: 08/06/23 08:04 Dose: Not Given Ondansetron HCl (Ondansetron Inj 2 Mg/Ml 2 Ml Vial) 4 mg IV Q4H PRN PRN Reason: Nausea &/or Vomiting Stop: 08/27/23 18:04 Last Admin: 08/05/23 10:10 Dose: 4 mg Ondansetron HCl (Ondansetron 4 Mg Od Tab) 4 mg SL Q4H PRN PRN Reason: Nausea &/or Vomiting Stop: 08/27/23 18:04 Pantoprazole Sodium (Pantoprazole 40 Mg Tab) 40 mg PO BID [facility] Stop: 08/27/23 20:59 Last Admin: 08/06/23 08:04 Dose: Not Given Promethazine HCl (Promethazine Hcl 25 Mg Tab) 25 mg PO Q6H PRN PRN Reason: n/v not relieved by Zofran Stop: 08/27/23 18:24 Last Admin: 08/04/23 19:42 Dose: 25 mg Senna/Docusate Sodium (Docusate Sodium/Senna 50/8.6mg Tab) 1 tab PO BID [facility] Stop: 08/11/23 20:59 Last Admin: 08/06/23 08:11 Dose: 1 tab Umeclidinium [place] (Umeclidinium [place] 62.5mcg/Blister 7 Puffs/Inhaler) 1 puffs INH DAILY [facility] Stop: 08/28/23 08:59 Last Admin: 08/06/23 08:05 Dose: Not Given
[2023-08-07] MEDS: ACETAMINOPHEN 325 MG TAB PO PRN (10:12)
--- NOTE | 2023-08-07 11:18 | Discharge Summary ---
Discharge Summary Date of Service August 07, 2023 Notes For Next Care Provider Pt being discharged with home hospice services Medication Changes From Visit Continue Dilaudid pump per Hospice recommendations Continue Dexamethasone 4mg BID Continue bowel regimen Continue Lorazepam 1mg q6h PRN for anxiety Continue daily mucinex 600mg BID Admission HPI Per Admitting Provider Ms. 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 She had #2/10 radiation to her left iliac crest on with persistent pain since. Additional PMH includes chronic pancytopenia (baseline hemoglobin 10-11), history of PE ( not on anticoagulation)endometrial cancer status post surgery, prediabetes, SLE, cancer pain on narcotics, ADD/mood disorder, pseudocholinesterase deficiency, esophageal ulcer as per records, ongoing tobacco use. Follows with palliative medicine as an outpatient for symptom management. She has had 18 admissions in the last year. Pt stated that she would like to be made comfort measures on 07/26/2023 with DNR/DNI status. Transitioned to [facility]/inpatient hospice care on 07/28/2023. Admission Exam Per Admitting Provider General: Alert but occasionally drowsy, oriented. No acute distress Psych: Appropriate mood and affect Neuro: No gross deficits HEENT: NC/AT CV: RRR, Normal s1, s2. Resp: Breath sounds clear bilaterally, no increased effort of breathing. Abdomen: Soft, nontender Extremities: moves extremities bilaterally. Principal Dx & Hospital Course #1 = Principal Diagnosis (1) Cancer-related breakthrough pain: (2) Metastatic adenocarcinoma: (3) Lung cancer metastatic to brain: (4) Pain from bone metastases: (5) Comfort measures only status: Plan Ms. Lowe is a 43-year-old female with an unfortunate history of metastatic lung adenocarcinoma with bone and brain mets that presented to the ED with uncontrolled intractable cancer pain. She had 2/10 radiation to her left iliac crest with persistent pain since. Additional PMH includes chronic pancytopenia (baseline hemoglobin 10-11), history of PE ( not on anticoagulation) endometrial cancer status post surgery, prediabetes, SLE, cancer pain on narcotics, ADD/mood disorder, pseudocholinesterase deficiency, esophageal ulcer as per records, ongoing tobacco use. Follows with palliative medicine as an outpatient for symptom management. She has had 18 admissions in the last year. After a complicated hospital course with increasing need for pain control and pt's desire for comfort, she stated that she would like to be made comfort measures on 07/26/2023 with DNR/DNI status. She was transitioned to [facility]/inpatient hospice care on 07/28/2023 and was discharged home with hospice services on 08/07/2023. Comfort Measures Status: 07/26/2023: Overnight, reports that pt was asking for increasing amounts of pain medication. Was receiving fentanyl 125mcg via patch, po Dilaudid 6mg q3h, IV Dilaudid 2mg q3h, Ativan 1mg TID for the most part, all on schedule. Reportedly asking nursing overnight to wake her up to get her scheduled medication doses as she was in so much pain. In the AM, discussion with pt was had about her full code status and increasing need for narcotic pain medications along with benzos that could potentially terminally suppress her respiratory drive. Nursing was at bedside as well during that discussion. Pt noted that her desire to be a full code was to ensure that family members had a chance to get to her and say goodbye should she have a turn for the worse. She noted that her main goal was to spend as much time with loved ones as she could and she does not want to in the hospital. She noted she has a sister who resides in another state. The option of hospice care was brought up and she stated that she would like more information but would also like to go home with her loved ones. Case management was advised as well as her inpatient Palliative care provider of patient's desire for more information about hospice and desire to go home. Ritchie noted that her pain at that time was well controlled and she noted that she had not used the IV Dilaudid since earlier in the night. Later notified by nursing that pt was in tears with increased pain and stating that she was not able to go home with this degree of pain. On arrival at bedside, was present. Further discussion with pt of her need for increasing narcotic pain medication and the desire to do no harm with her desire at that time to remain a full code. The risk of respiratory drive suppression with need for intubation and ventilator support with increasing doses and frequency of her narcotic pain meds was once again explained, this time with at bedside. It was also explained that she would be able to receive as much pain medications as frequently as she would like if it was her desire to be comfortable under comfort measures status. Her code status was once again discussed at that time. indicated that over the last few months he has noted a significant decline and was aware of the terminal nature of her diagnosis with the significant spread. He stated that he would like to see her comfortable. Ritchie was in tears and verbalized un derstanding and agreement but stated that she would like to discuss this further with her sister. Later called back to pt's bedside by nursing as Ritchie had indicated that she would like to discuss things further. Upon entry into the room, and Ritchie indicated that they had contacted family and advised of the situation. Ritchie indicated that she would like to be made comfortable and be made a DNR/DNI. She noted that her pain level was increasing and she would like to get her medications as frequently as she needed. She indicated that she was aware of the risk of respiratory suppression and though she is a DNR/DNI, she would like Narcan available for her use if needed. Pt was made comfort measures at that time and her Dilaudid doses were increased in frequency to q2h. She was later seen by Palliative Care and per their discussion, decided that she did not need Narcan. She was made full comfort measures at that time. On 07/28/23, Pt was transitioned to inpatient hospice care/[facility]. She was started on a Dilaudid DIRECTOR CALL pump and dose titrated as needed per Hospice recommendations. She was also discharged with the dliaudid pump per Hospice Services, and lorazepam 1mg q6h prn for anxiety, dexamethasone 4mg BID and her daily mucinex. Please ensure pt is on a bowel regimen after discharge while on chronic high dose narcotics. Primary adenocarcinoma of lung: Mets to brain and bone: New Metastatic Lesion: Chronic, History below: Followed with Dr. Charlton, now with [facility] and trying to establish care with Dr. David for another opinion scheduled 08/17/23, was also planning to go to [facility] for an opinion as well at one point during the course Overall poor prognosis New lesion identified on face CT: 1. A 2.5 x 2.5 cm destructive lesion centered within the ramus of the right hemimandible consistent with metastatic disease. No evidence for pathologic fracture at this time. 2. Re-demonstration of the 13 mm intracranial metastatic focus within the right temporal lobe. Will involve ST for safe swallowing techniques Acute on chronic pain Outpatient regimen Dilaudid 4 mg p.o. every 4 as needed, Ativan 0.5 mg p.o. 3 times daily Fentanyl TD patch recently increased from 50 mcg to 100 mcg 07/17; then to 112 mcg as of 07/21 and 07/24 increased to 125mcg before starting dilaudid pump Follows with Palliative medicine as outpatient; re-involve while here Involve pain management for additional eval; Current pain regimen 6mg po q3hr mg Dilaudid and 2mg IV dilaudid q3hr for breakthrough pain Has been put on bowel regimen Continue with anxiolytic Appreciate palliative and pain management assistance Pt was made comfort measures and discharged home with hospice services as above Tachycardia Noted on 07/23. Pt known to be tachycardic, previously evaluated by cardiology at one prior admission Likely multifactorial in setting of cancer, uncontrolled pain and chronic anemia, currently worsening. Was started on metoprolol, has since been discontinued once patient transitioned to comfort measures. Pt was made comfort measures and discharged home with hospice services as above Pancytopenia Anemia Pt with noted worsening anemia, thrombocytopenia and leukopenia. Has occurred in the past. Holding dvt prophylaxis Was transfused 1U pRBCs on 07/25 given pt's symptoms and hgb of 7.2. Hgb remained stable above 7 Per discussion with palliative on 07/24, pt wanted to seek third opinion from [facility] rather than Dr David Pt was made comfort measures and discharged home with hospice services as above Metastasis to brain: Pt with known mets to the brain Pt was made comfort measures and discharged home with hospice services as above Intractable N/V: improved continue prn phenergan Hypomagnesemia: repleted Hypokalemia: repleted Tobacco use: Chronic Currently smoking 5 cigarettes per day Smoking cessation recommended Prescribed Ellipta, Advair; continue Albuterol PRN; continue Discharge Exam General: Alert, sometimes confused. No acute distress Psych: Appropriate mood and affect Neuro: No gross deficits HEENT: NC/AT CV: RRR, Normal s1, s2. Resp: Breath sounds clear bilaterally, no increased effort of breathing. Abdomen: Soft, nontender Extremities: moves extremities bilaterally. Updated Medication List Medication Instructions Recorded Confirmed Type albuterol sulfate 90 mcg/actuation 2 puff inhalation Q4H PRN 03/28/23 07/28/23 History aerosol inhaler (Ventolin HFA) Shortness Of Breath Or Wheezing chlorpromazine 25 mg tablet 25 mg PO QID PRN Hiccups 03/28/23 07/28/23 History cyanocobalamin (vitamin B-12) 1,000 mcg IM MONTHLY 03/28/23 07/28/23 History 1,000 mcg/mL injection solution fluticasone propionate 230 2 puff inhalation BID 03/28/23 07/28/23 History mcg-salmeterol 21 mcg/actuation HFA inhaler (Advair HFA) folic acid 1 mg tablet 1 mg PO DAILY 03/28/23 07/28/23 History ondansetron HCl 8 mg tablet 8 mg PO TID PRN Nausea And Vomiting 03/28/23 07/28/23 History umeclidinium 62.5 mcg/actuation 1 inh inhalation DAILY 03/28/23 07/28/23 History blister powder for inhalation (Incruse Ellipta) Magic Mouthwash 300 mL mouthwash 10 ml mucous membrane ACHS PRN 05/28/23 07/28/23 History dysphagiea pantoprazole 40 mg tablet,delayed 40 mg PO BID 07/02/23 07/28/23 History release dexamethasone 4 mg tablet 4 mg PO UD 07/18/23 07/28/23 History ibuprofen 800 mg tablet 800 mg PO Q8H PRN Pain, Moderate 07/18/23 07/28/23 History promethazine 25 mg tablet 25 mg PO Q6H PRN n/v 07/18/23 07/28/23 History fentanyl 50 mcg/hr transdermal See Rx Instructions .Route 07/26/23 07/28/23 Rx patch .COMPLEX #2 ea hydromorphone 2 mg tablet 6 mg (3 x 2 mg) PO Q4H PRN pain 07/26/23 07/28/23 Rx (Dilaudid) #36 tabs magnesium chloride 64 mg 64 mg PO BID #60 tabs 07/26/23 07/28/23 Rx (magnesium chloride) tablet,delayed release (Mag 64) potassium chloride 20 mEq 20 meq PO BID #60 tabs 07/26/23 07/28/23 Rx tablet,extended release(part/cryst) dexamethasone 4 mg tablet 4 mg PO BID #60 tabs 08/07/23 Rx guaifenesin 600 mg tablet, 600 mg PO Q12 #60 tabs 08/07/23 Rx extended release 12 hr (Mucinex) lorazepam 0.5 mg tablet 1 mg (2 x 0.5 mg) PO Q6H PRN 08/07/23 Rx Anxiety #30 tabs sennosides 8.6 mg-docusate sodium 1 tab PO BID #60 tabs 08/07/23 Rx 50 mg tablet (Senokot-S) Additional Medication Comments Current Inpatient Medications Acetaminophen (Acetaminophen 325 Mg Tab) 650 mg PO Q6H PRN PRN Reason: Fever 37.8C or greater Stop: 08/27/23 18:04 Last Admin: 08/07/23 10:12 Dose: 650 mg Albuterol (Albuterol Hfa 8 Gm Inhaler) 2 puffs INH Q4H PRN PRN Reason: Shortness Of Breath Or Wheezing Stop: 08/27/23 18:24 Last Admin: 07/31/23 14:09 Dose: 2 puffs Chlorpromazine HCl (Chlorpromazine Hcl 25 Mg Tab) 25 mg PO QID PRN PRN Reason: Hiccups Stop: 08/27/23 18:24 Last Admin: 08/07/23 09:08 Dose: 25 mg Cyanocobalamin (Cyanocobalamin 1000 Mcg/Ml Vial) 1,000 mcg IM Q30D [facility] Stop: 08/28/23 08:59 Last Admin: 07/29/23 08:48 Dose: 1,000 mcg Dexamethasone (Dexamethasone 4 Mg Tab) 4 mg PO BID [facility] Stop: 09/02/23 20:59 Last Admin: 08/07/23 07:55 Dose: 4 mg Fluticasone/Vilanterol (Fluticasone/Vilanterol 200/25mcg 14 Puffs/Inhaler) 1 puffs INH DAILY [facility] Stop: 08/28/23 08:59 Last Admin: 08/07/23 07:58 Dose: Not Given Folic Acid (Folic Acid 1 Mg Tab) 1 mg PO DAILY [facility] Stop: 08/28/23 08:59 Last Admin: 08/07/23 07:57 Dose: 1 mg Guaifenesin (Guaifenesin 600 Mg Tabcr) 600 mg PO Q12 [facility] Stop: 08/29/23 12:39 Last Admin: 08/07/23 07:55 Dose: 600 mg Hydromorphone HCl (Hydromorphone Wire Basket Maker 30 Mg/30 Ml) 30 mg IV PRN PRN; Protocol PRN Reason: DIRECTOR CALL Pain Titration Stop: 08/11/23 18:04 Last Admin: 08/07/23 08:40 Dose: 30 mg Sodium Chloride (Nss) 1,000 mls @ 30 mls/hr IV .Q24H MATI Stop: 08/11/23 18:08 Last Admin: 08/07/23 10:13 Dose: 30 mls/hr Hydromorphone HCl (Dilaudid/Nss) 100 mg in 100 mls @ 3.5 mls/hr IV .[id number] MATI; Protocol Stop: 08/13/23 15:44 Last Titration: 08/07/23 07:12 Dose: 3.5 mg/hr, 3.5 mls/hr Lorazepam 1 mg/ Syringe 1 mls @ 2 mls/min IV Q4H PRN; Protocol PRN Reason: Anxiety/Agitation,nausea,spasm Stop: 09/04/23 09:32 Last Admin: 08/07/23 07:54 Dose: 2 mls/min Ibuprofen (Ibuprofen 800 Mg Tab) 800 mg PO Q8H PRN PRN Reason: Pain, Moderate Stop: 08/27/23 18:24 Last Admin: 08/07/23 07:55 Dose: 800 mg Multi-Ingredient Mouthwash/Gargle (First - Mouthwash Blm 119 Ml) 10 ml PO ACHS PRN PRN Reason: dysphagia Stop: 08/27/23 18:34 Naloxone HCl (Naloxone Hcl 0.4 Mg/1 Ml Vial/Carp) 0.1 mg IV Q5M PRN; Protocol PRN Reason: Oversedation/Resp Depression Stop: 08/11/23 18:04 Olanzapine (Olanzapine 2.5 Mg Tab) 2.5 mg PO BID [facility] Stop: 09/03/23 20:59 Last Admin: 08/07/23 08:17 Dose: Not Given Ondansetron HCl (Ondansetron Inj 2 Mg/Ml 2 Ml Vial) 4 mg IV Q4H PRN PRN Reason: Nausea &/or Vomiting Stop: 08/27/23 18:04 Last Admin: 08/07/23 07:54 Dose: 4 mg Ondansetron HCl (Ondansetron 4 Mg Od Tab) 4 mg SL Q4H PRN PRN Reason: Nausea &/or Vomiting Stop: 08/27/23 18:04 Pantoprazole Sodium (Pantoprazole 40 Mg Tab) 40 mg PO BID [facility] Stop: 08/27/23 20:59 Last Admin: 08/07/23 09:00 Dose: Not Given Promethazine HCl (Promethazine Hcl 25 Mg Tab) 25 mg PO Q6H PRN PRN Reason: n/v not relieved by Zofran Stop: 08/27/23 18:24 Last Admin: 08/04/23 19:42 Dose: 25 mg Senna/Docusate Sodium (Docusate Sodium/Senna 50/8.6mg Tab) 1 tab PO BID [facility] Stop: 08/11/23 20:59 Last Admin: 08/07/23 07:55 Dose: 1 tab Umeclidinium [place] (Umeclidinium [place] 62.5mcg/Blister 7 Puffs/Inhaler) 1 puffs INH DAILY [facility] Stop: 08/28/23 08:59 Last Admin: 08/07/23 08:00 Dose: Not Given Hospital Stay Data Consultations 07/30/23 21:26 Consult Palliative Care Routine Pending Results Patient Have Any Pending Studies at Discharge: No Discharge Instructions Given to Patient (Per Discharging Provider) Ritchie, We are discharging you home with hospice services. Please follow up with your hospice provider for any of your needs after discharge. Wishing you the best Ritchie. It was a pleasure taking care of you during this time. Total Time Total Time Spent Total Time Spent (In Minutes): > 30 minutes
[2023-08-07] MEDS: HYDROmorphone INJ 2 MG/ML SYR/VIAL IV STA (16:03)
== END 2023-08-07 16:22 | disposition hospice, home (50) | DRG 948 ==
LOC: 3E 18:00 → SUATTDRO 18:00